=== PATIENT | male | born 1950 | race Caucasian/White ===

== ENCOUNTER 2016-03-12 21:40 | Observation (INO) ==
[2016-03-12] MEDS ORDERED: methylPREDNISolone 125 MG/2 ML VIAL IVP ONE (21:57)
[2016-03-12] MEDS ORDERED: Ipratropium/Albuterol Neb 3 ML IH ONE (21:57)
[2016-03-12 22:17] LABS: Basophils # 0.1 K/mcL (0.0-0.2); Basophils % 0.4 %; Eosinophils # 0.1 K/mcL (0.0-0.6); Eosinophils % 0.5 %; Hematocrit 50.1 % (37.5-50.1); Hemoglobin 16.5 g/dL (12.9-16.9); Immature Granulocytes % 0.6 % (0-4); Mean Corpuscular HGB Conc 32.9 g/dL (31.6-35.5); Mean Corpuscular Hemoglobin 29.8 pg (28.0-33.3); Mean Corpuscular Volume 90.6 fL (83.0-100.0); Mean Platelet Volume 11.3 fL (9.4-12.4); Monocytes # 1.2 K/mcL (0.0-1.3); Monocytes % 6.1 %; Neutrophils # 17.2 K/mcL (1.6-8.9); Platelet Count 143 K/mcL (140-400); Red Blood Count 5.53 M/mcL (4.19-5.50); Red Cell Distribution Width 14.3 % (11.5-14.5); Segmented Neutrophils % 87.4 %
[2016-03-12 22:28] LABS: Calcium 9.3 mg/dL (8.6-10.8); Potassium 4.2 mEq/L (3.5-4.5)
--- NOTE | 2016-03-12 22:49 | Emergency Department Note ---
START Narrative - START START: I examined this patient and my medical decision-making was reviewed with the MODULAR HOME CREW MEMBER/PA/Advanced Practice Nurse/Resident Physician. I agree with the documented findings, disposition and treatment plan as described except to the extent set forth below. ED attending note: Patient seen with emergency medicine resident Dr. Vick. Please see a copy of his note for details of the H&P, evaluation, management and disposition of this patient. We independently had [id number] contact with the patient Briefly: 65-year-old male via EMS for shortness of breath and difficulty breathing with cough and sputum. Patient recently diagnosed with lung cancer has pre-existing COPD. Eyes expiratory wheezes bilaterally. Tachycardic and tachypneic. Got triple DuoNeb and IV steroids. EKG shows no acute ischemic changes. Disposition pending. 45 minutes of critical care service provided. Patient stable
--- NOTE | 2016-03-12 23:13 | Emergency Department Note ---
Disposition Clinical Impression: Pneumonia Qualifiers: Pneumonia type: due to unspecified organism Laterality: unspecified laterality Lung location: unspecified part of lung Qualified Code(s): J18.9 - Pneumonia, unspecified organism Disposition: Admitted As Inpatient Condition: Good Referrals: Maxine Delatorre CNP [Primary Care Provider] - Forms: ED Satisfaction Letter SOB HPI - General Chief Complaint: ED Shortness of Breath/Dyspnea Stated Complaint: ANUP Source: patient Limitations: no limitations Nursing Notes Reviewed: Yes Vital Signs Reviewed: Yes - History of Present Illness Patient has a history of COPD and intermittent oxygen use at home. Lung cancer that had initially resolved with chemoradiation that is now recurred and is can undergo treatments next week. Here for shortness of breath for the last 2 days worsening despite at-home nebulizers and COPD treatments. Patient has not been using his oxygen as he has with stove at home. Patient has not been able to get out of his bed to do any activities due to decreased exertional capacity. - Related Data Home Medications Medication Instructions Recorded Confirmed Alprazolam [Xanax] 1 tab PO HS PRN 10/01/14 03/09/16 Escitalopram Oxalate [Lexapro] 10 mg PO DAILY 10/01/14 03/09/16 Furosemide [Lasix] 40 mg PO DAILY 10/01/14 03/09/16 Gabapentin [Neurontin] 800 mg PO TID 10/01/14 03/09/16 Metoprolol Succinate [Toprol Xl] 25 mg PO DAILY 10/01/14 03/09/16 Spironolactone 50 mg PO DAILY 10/05/14 03/09/16 Albuterol Sulfate [Proair Hfa] 1 puff IH DAILY PRN 05/11/15 03/09/16 Fluticasone/Vilanterol [Breo 1 each IH DAILY 11/02/15 03/09/16 Ellipta 100-25 Mcg INH] Indomethacin 75 mg PO DAILY PRN 11/02/15 03/09/16 Duloxetine [Cymbalta] 30 mg PO DAILY 01/31/16 03/09/16 Previous Rx's Medication Instructions Recorded Allopurinol [Zyloprim 300 MG] 300 mg PO DAILY #90 tablet 04/12/15 Dexamethasone [Decadron] 4 mg PO AD #60 tab 03/09/16 Hydrocodone/Acetaminophen [[place] 1 tab PO Q4H PRN #150 tablet 03/09/16 5-325 Tablet] LORazepam [Ativan] 1 mg PO Q6H PRN #90 tablet 03/09/16 Lidocaine/Prilocaine CREAM [[place]ml[place]] 5 gm TP AD #1 tube 03/09/16 Loratadine [Claritin] 10 mg PO AD #30 capsule 03/09/16 Magic Mouthwash [Magic Mouthwash 10 ml PO QID PRN #240 ml 03/09/16 BLM] Morphine Sulfate 15 - 30 mg PO Q4H PRN #120 tab 03/09/16 Omeprazole [PriLOSEC] 20 mg PO DAILY #90 cap 03/09/16 Ondansetron [Zofran] 8 mg PO Q8HR #90 tablet 03/09/16 Prochlorperazine Maleate 10 mg PO Q6HR #90 tablet 03/09/16 [Compazine] Allergies Allergy/AdvReac Type Severity Reaction Status Date / Time No Known Allergies Allergy Verified 03/12/16 21:47 Constitutional: Reports: fever, chills, weakness Eyes: Denies: eye pain ENT ED: Denies: ear pain Cardiovascular: Denies: chest pain, palpitations Respiratory: Reports: cough, dyspnea, wheezes Gastrointestinal: Denies: abdominal pain, nausea Genitourinary: Denies: urgency, dysuria Musculoskeletal: Denies: back pain Integumentary: Denies: rash Psychiatric: Denies: anxiety, depression Endocrine: Reports: fatigue Past Medical History - Past Medical History Medical history: Reports: aortic aneurysm, arthritis, cancer, CHF, COPD, hyperlipidemia, hypertension, malignancy, other Psychiatric history: Reports: no psych history - Social History Smoking Status: Former smoker Smokeless Tobacco Status: No Alcohol use: Reports: none Drug use: Reports: none Physical Exam - General Limitations: no limitations General appearance: alert - Head Head exam: atraumatic, normocephalic - Eye Eye exam: Present: normal appearance - ENT ENT exam: normal exam, normal oropharynx, mucous membranes dry - Neck Neck exam: Present: normal inspection, full ROM - Chest Chest inspection: Present: normal inspection - Respiratory Respiratory exam: Present: normal lung sounds bilaterally, respiratory distress , wheezes (diffuse and bilateral) - Cardiovascular Cardiovascular exam: Present: regular rate, normal rhythm - Abdominal Exam Abdominal exam: Present: soft, Non-Tender - Extremities Exam Extremities exam: Present: normal inspection, full ROM - Back Exam Back exam: Present: normal inspection, full ROM - Neurological Exam Neurological exam: Present: alert, oriented X3 Course - Reevaluation(s) Reevaluation #1: Significantly improved with DuoNeb's and oxygen. - Consultations Consultation #1: Discussed with hospitalist Dr. Miller. Patient accepted for admission. Vital Signs Temperature 97.7 F 03/12/16 21:48 Pulse Rate 125 03/12/16 21:48 Respiratory Rate 24 03/12/16 21:48 Blood Pressure 120/77 03/12/16 21:48 O2 Sat by Pulse Oximetry 88 L 03/12/16 21:48 Temperature 97.7 F 03/12/16 21:48 Pulse Rate 105 03/12/16 22:58 Respiratory Rate 20 03/12/16 22:58 Blood Pressure 109/65 03/12/16 22:58 O2 Sat by Pulse Oximetry 91 L 03/12/16 22:58 Oxygen Delivery Oxygen Delivery Nasal Cannula Shortness of Breath/Dyspnea - Medical Records Medical records reviewed: Yes I reviewed the patient's medical records. - Lab Data Lab results reviewed: Yes I reviewed the patient's lab results. Result diagrams: 03/12/16 22:00 03/12/16 22:00 Lab Results 03/12/16 03/12/16 03/12/16 Range/Units 22:00 22:00 22:00 WBC 19.7 H D (4.3-11.1) K/mcL RBC 5.53 H (4.19-5.50) M/mcL Hgb 16.5 (12.9-16.9) g/dL Hct 50.1 (37.5-50.1) % MCV 90.6 (83.0-100.0) fL MCH 29.8 (28.0-33.3) pg MCHC 32.9 (31.6-35.5) g/dL RDW 14.3 (11.5-14.5) % Plt Count 143 (140-400) K/mcL MPV 11.3 (9.4-12.4) fL Immature Gran % 0.6 (0-4) % Seg Neutrophils % 87.4 % Lymphocytes % 5.0 % Monocytes % 6.1 % Eosinophils % 0.5 % Basophils % 0.4 % Neutrophils # 17.2 H (1.6-8.9) K/mcL Lymphocytes # 1.0 (0.6-4.6) K/mcL Monocytes # 1.2 (0.0-1.3) K/mcL Eosinophils # 0.1 (0.0-0.6) K/mcL Basophils # 0.1 (0.0-0.2) K/mcL Sodium 139 (136-145) mEq/L Potassium 4.2 (3.5-4.5) mEq/L Chloride 101 (98-109) mEq/L Carbon Dioxide 25 (19-29) mEq/L BUN 20 (8-26) mg/dL Creatinine 1.67 H (0.72-1.25) mg/dL Est GFR ( Amer) 51 L (> 60) Est GFR (Non-Af Amer) 42 L (> 60) BUN/Creatinine Ratio 12 (6-26) Glucose 164 H (70-99) mg/dL Calculated Osmolality 294 (280-300) Calcium 9.3 (8.6-10.8) mg/dL Troponin I 0.01 (0-0.03) ng/mL B-Natriuretic Peptide (0-100) pg/mL 03/12/16 Range/Units 22:00 WBC (4.3-11.1) K/mcL RBC (4.19-5.50) M/mcL Hgb (12.9-16.9) g/dL Hct (37.5-50.1) % MCV (83.0-100.0) fL MCH (28.0-33.3) pg MCHC (31.6-35.5) g/dL RDW (11.5-14.5) % Plt Count (140-400) K/mcL MPV (9.4-12.4) fL Immature Gran % (0-4) % Seg Neutrophils % % Lymphocytes % % Monocytes % % Eosinophils % % Basophils % % Neutrophils # (1.6-8.9) K/mcL Lymphocytes # (0.6-4.6) K/mcL Monocytes # (0.0-1.3) K/mcL Eosinophils # (0.0-0.6) K/mcL Basophils # (0.0-0.2) K/mcL Sodium (136-145) mEq/L Potassium (3.5-4.5) mEq/L Chloride (98-109) mEq/L Carbon Dioxide (19-29) mEq/L BUN (8-26) mg/dL Creatinine (0.72-1.25) mg/dL Est GFR ( Amer) (> 60) Est GFR (Non-Af Amer) (> 60) BUN/Creatinine Ratio (6-26) Glucose (70-99) mg/dL Calculated Osmolality (280-300) Calcium (8.6-10.8) mg/dL Troponin I (0-0.03) ng/mL B-Natriuretic Peptide 86 (0-100) pg/mL - Radiology Data Radiology results reviewed: Yes I reviewed the patient's radiology results. - EKG Data EKG attestation: Yes I reviewed and interpreted this EKG. EKG results narrative: EKG shows sinus tachycardia with ventricular rate of 122. UT interval 174. QRS 105. QTC 383. Patient has no ST elevations or depressions. Nonspecific ST -T wave changes. Unchanged from previous of 07/01/14
[2016-03-12] MEDS ORDERED: 0.9 % Sodium Chloride 500 ML IV ONE (23:14)
[2016-03-12] MEDS ORDERED: Levofloxacin 750 MG/150 ML 750 MG/150 ML BAG IVPB SCH (23:45)
[2016-03-13] MEDS ORDERED: Vancomycin 1,000 MG in D5% in Water 250 ML IVPB SCH (00:42)
[2016-03-13] MEDS ORDERED: Ondansetron 4 MG/2 ML VIAL IVP PRN (00:43)
[2016-03-13] MEDS ORDERED: Naloxone 0.4 MG/ML INJ IVP PRN (00:43)
[2016-03-13] MEDS ORDERED: 0.9 % Sodium Chloride 1,000 ML IVC SCH (00:45)
[2016-03-13] MEDS ORDERED: Ipratropium/Albuterol Neb 3 ML IH PRN (00:46)
[2016-03-13] MEDS ORDERED: Indomethacin 25 MG CAPSULE PO PRN (02:19)
[2016-03-13] MEDS ORDERED: ALPRAZolam 0.5 MG TABLET PO PRN (02:19)
--- NOTE | 2016-03-13 02:19 | Internal Med History&Physical ---
Date of Encounter: 03/13/16 Time of Encounter: 01:20 Assessment and Plan (1) Right lower lobe pneumonia Current visit: Yes Status: Acute -CXR consistent with RLL infiltrates -Will start empiric abx and given immunocompromised state with the patient being on chemo, will treat as HCAP -Pharmacy to dose vancomycin, closely monitor vanco trough -follow up blood cultures -O2 supplementation as needed Qualifiers: Pneumonia type: due to unspecified organism Qualified Code(s): J18.9 - Pneumonia, unspecified organism (2) COPD (chronic obstructive pulmonary disease) Current visit: Yes Status: Chronic -Not in acute exacerbation -Patient received one dose of Methylprednisolone 125 mg IV in the ER -Will monitor without systemic steroids -continue bronchodilators -continue O2 supplementation as needed Qualifiers: COPD type: unspecified COPD Qualified Code(s): J44.9 - Chronic obstructive pulmonary disease, unspecified (3) Hyperglycemia Current visit: Yes Status: Acute -No history of DM -Will obtain A1C and closely monitor blood glucose (4) Hypertension Current visit: Yes Status: Acute BP within acceptable range continue home medications Qualifiers: Hypertension type: essential hypertension Qualified Code(s): I10 - Essential (primary) hypertension (5) CHF (congestive heart failure) Current visit: Yes Status: Chronic -Not in acute exacerbation -Continue home medications Qualifiers: Congestive heart failure type: unspecified congestive heart failure type Congestive heart failure chronicity: chronic Qualified Code(s): I50.9 - Heart failure, unspecified (6) Adenocarcinoma of lung Current visit: Yes Status: Chronic -continue chemotherapy as per primary oncologist after discharge -continue pain control Qualifiers: Laterality: right Qualified Code(s): C34.91 - Malignant neoplasm of unspecified part of right bronchus or lung (7) DVT prophylaxis Current visit: Yes Status: Acute -Lovenox SQ (8) Morbid obesity with BMI of 40.0-44.9, adult Current visit: Yes Status: Chronic (9) CKD (chronic kidney disease) Current visit: Yes Status: Acute -Kidney function appears to be at baseline as per prior lab values -continue to monitor Qualifiers: Chronic kidney disease stage: stage 3 (moderate) Qualified Code(s): N18.3 - Chronic kidney disease, stage 3 (moderate) Internal Medicine - H&P: HPI Chief complaint: worsening shortness of breath Admitted From: Home Plans for Post Hospital Care: Home History of present illness: Mr. Ricardo is a 65 year old male with PMH of right lung cancer, COPD on home oxygen, hypertension, hyperlipidemia, CHF, colostomy secondary to perforated bowel due to diverticulitis who presents to the ER for evaluation of worsening shortness of breath, cough, fever x 3 days. Patient states he was initially diagnosed with RUL lung cancer two years ago and underwent chemo/radiation and RUL lobectomy. He had been in remission until recently when he was diagnosed with Right lung ca. Patient reports of having chronic cough but states for the last few days he has had worsening shortness of breath with fevers and today his breathing did not improve with his nebulizer treatments due to which he came to the ER. He reports of having home oxygen which he uses intermittently. At this time he is sitting in bed and reports of feeling better. Denies any headache, sob, chest pain, abd pain, n/v, fever, or chills at this time. He reports of starting systemic palliative chemotherapy with Dr. Kahn. Social Hx: Former smoker (quit 10 years ago) Past Med Surg Social Fam HX - Past Medical History Medical history: aortic aneurysm, arthritis, cancer, CHF, COPD, hyperlipidemia, hypertension, malignancy, other Psychiatric history: no psych history - Social History Smoking Status: Former smoker Smokeless Tobacco Status: No Alcohol use: none Drug use: none - Family History Father Adopted: No Family Member Ethnicity: Non- Living Status: Hx Family Cardiac Disorders: Yes (CHF) Hx Family Respiratory Disorders: Yes (COPD) Hx Family Cancer: No Hx Family GI Disorders: No Hx Family Endocrine Disorder: Yes (DM) Hx Family Neuromuscular Disorders: No Hx Family Neurologic Disorders: No Hx Family HEENT Disorders: No Hx Family Autoimmune Disorders: No Internal Medicine - H&P: Meds Alprazolam [Xanax] 1 tab PO HS PRN 10/01/14 [History] Escitalopram Oxalate [Lexapro] 10 mg PO DAILY 10/01/14 [History] Furosemide [Lasix] 40 mg PO DAILY 10/01/14 [History] Gabapentin [Neurontin] 800 mg PO TID 10/01/14 [History] Metoprolol Succinate [Toprol Xl] 25 mg PO DAILY 10/01/14 [History] Spironolactone 50 mg PO DAILY 10/05/14 [History] Albuterol Sulfate [Proair Hfa] 1 puff IH DAILY PRN 05/11/15 [History] Fluticasone/Vilanterol [Breo Ellipta 100-25 Mcg INH] 1 each IH DAILY 11/02/15 [ History] Indomethacin 75 mg PO DAILY PRN 11/02/15 [History] Duloxetine [Cymbalta] 30 mg PO DAILY 01/31/16 [History] Hydrocodone/Acetaminophen [[place] 5-325 Tablet] 1 tab PO Q4H PRN #150 tablet 02/11 [Rx] Morphine Sulfate 15 - 30 mg PO Q4H PRN #120 tab 03/09/16 [Rx] Allergies No Known Allergies Allergy (Verified 03/12/16 21:47) All Systems PM: A 10-system review of systems was performed and is negative for pertinent findings except as documented above in the HPI. - Constitutional Constitutional: as per HPI - Constitutional Vitals: Temp Pulse Resp BP Pulse Ox 97.4 F L 98 20 106/74 93 L 03/13/16 01:20 03/13/16 01:20 03/13/16 01:20 03/13/16 01:20 03/13/16 01:20 General appearance: Present: cooperative, A&O X 3, morbidly obese, pleasant, no acute distress, answers questions appropriately - Head Head exam: Present: atraumatic, normocephalic - Eye Eye exam: Present: normal appearance, conjuntiva pink, sclera anicteric - Respiratory Respiratory exam: Absent: respiratory distress, wheezes (coarse breath sounds on bilateral lower bases Right worst than left) - Cardiovascular Cardiovascular exam: Present: RRR, +S1, +S2 - GI/Abdominal GI/Abdominal exam: Present: normal bowel sounds, soft. Absent: tenderness (LLQ Colostomy in place) - Extremities Exam Extremities exam: Present: warm, radial pulses palpable and symetrical. Absent : calf tenderness, pedal edema, tenderness - Neurological Exam Neurological exam: Present: alert, oriented X3, no focal deficits - Psychiatric Psychiatric exam: Present: normal affect, normal mood Internal Med - H&P Results - Labs CBC & Chem 7: 03/12/16 22:00 03/12/16 22:00
[2016-03-13] MEDS: Vancomycin 2,000 MG in D5% in Water 500 ML IVPB SCH ×2 (02:28→15:56)
[2016-03-13] MEDS: Ipratropium/Albuterol Neb 3 ML IH SCH ×6 (04:08→23:50)
[2016-03-13 05:07] LABS: Magnesium 1.8 mg/dL (1.6-2.6); Phosphorous 2.4 mg/dL (2.3-4.7); Potassium 4.2 mEq/L (3.5-4.5)
[2016-03-13] MEDS: Piperacillin/Tazobactam 3.375 GM in D5% in Water (Mini-Bag+) 100 ML IVPB SCH ×2 (05:26→15:56)
[2016-03-13] MEDS: *HR* Enoxaparin 40 MG/0.4 ML SYRINGE SQ SCH (05:27)
[2016-03-13 05:29] LABS: Basophils % 0.2 %; Eosinophils % 0.1 %; Hematocrit 47.8 % (37.5-50.1); Hemoglobin 15.7 g/dL (12.9-16.9); Immature Granulocytes % 0.7 % (0-4); Lymphocytes # 0.6 K/mcL (0.6-4.6); Lymphocytes % 3.3 %; Mean Corpuscular HGB Conc 32.8 g/dL (31.6-35.5); Mean Corpuscular Hemoglobin 30.4 pg (28.0-33.3); Mean Corpuscular Volume 92.5 fL (83.0-100.0); Mean Platelet Volume 11.4 fL (9.4-12.4); Monocytes # 0.5 K/mcL (0.0-1.3); Monocytes % 2.7 %; Neutrophils # 16.9 K/mcL (1.6-8.9); Platelet Count 120 K/mcL (140-400); Red Blood Count 5.17 M/mcL (4.19-5.50); Red Cell Distribution Width 14.3 % (11.5-14.5)
[2016-03-13 05:39] LABS: Hemoglobin A1C 5.4 %
[2016-03-13] MEDS: Furosemide 40 MG TABLET PO SCH (09:35)
[2016-03-13] MEDS: Metoprolol XL (24 HR) Succ 25 MG TAB.ER.24H PO SCH (09:35)
[2016-03-13] MEDS: Gabapentin 400 MG CAPSULE PO SCH ×3 (09:36→21:34)
--- NOTE | 2016-03-13 13:23 | Electrocardiograph Report ---
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
--- NOTE | 2016-03-13 13:27 | Event Note ---
Date of Encounter: 03/13/16 Time of Encounter: 10:30 Patient seen and examined. On examination, patient is sitting upright in bed. Patient alert and oriented 3 and states he is feeling much better. He continues to complain of shortness of breath intermittently. He states that his cough is now productive. He denies further concerns and is endorsing a normal appetite. Chest x-ray consistent with right lower lobe pneumonia. We will continue vancomycin and Zosyn. Leukocytosis slowly trending down. Patient states he is on 2 L per nasal cannula as needed at home, currently fluctuating between 2 and 3 L while inpatient. Patient stating he has not had chemotherapy in 2 years and states that he had a PET scan 2 weeks ago which revealed 3 positive spots and he states that he was supposed to see Dr. Bailey this week to reinitiate chemotherapy. On examination, breath sounds decreased throughout with coarse wheezing noted. Possible discharge as early as tomorrow pending clinical outcomes as the patient is asking to go home today but clinically not able to do so. ITS Impressions Chest X-Ray 03/12/16 21:58 IMPRESSION: 1. Worsening right lower lobe airspace disease concerning for developing pneumonia. D/ / Nitin Lozano MD / Nitin Lozano MD Interpreting Provider: Nitin Lozano MD
[2016-03-13] MEDS: *HR* HYDROcodone/Acet 5/325 mg TABLET PO PRN (15:57)
[2016-03-13] MEDS: *HR* Morphine Immed Rel 30 MG TABLET PO PRN (15:57)
[2016-03-14] MEDS: Piperacillin/Tazobactam 3.375 GM in D5% in Water (Mini-Bag+) 100 ML IVPB SCH ×2 (01:33→09:40)
[2016-03-14] MEDS ORDERED: Vancomycin 1,500 MG in D5% in Water 250 ML IVPB SCH ×2 (02:00→17:00)
[2016-03-14] MEDS: Ipratropium/Albuterol Neb 3 ML IH SCH ×4 (03:51→16:35)
[2016-03-14 04:46] LABS: Basophils % 0.1 %; Hematocrit 44.8 % (37.5-50.1); Hemoglobin 14.8 g/dL (12.9-16.9); Immature Granulocytes % 0.9 % (0-4); Lymphocytes # 0.8 K/mcL (0.6-4.6); Lymphocytes % 4.2 %; Mean Corpuscular Volume 90.7 fL (83.0-100.0); Mean Platelet Volume 11.2 fL (9.4-12.4); Monocytes # 0.9 K/mcL (0.0-1.3); Monocytes % 5.1 %; Neutrophils # 16.6 K/mcL (1.6-8.9); Platelet Count 144 K/mcL (140-400); Red Blood Count 4.94 M/mcL (4.19-5.50); Red Cell Distribution Width 14.2 % (11.5-14.5); Segmented Neutrophils % 89.7 %
[2016-03-14] MEDS: *HR* Enoxaparin 40 MG/0.4 ML SYRINGE SQ SCH (05:01)
[2016-03-14 05:10] LABS: BUN/Creatinine Ratio 20 (6-26); Blood Urea Nitrogen 27 mg/dL (8-26); Calcium 8.9 mg/dL (8.6-10.8); Carbon Dioxide 24 mEq/L (19-29); Chloride 104 mEq/L (98-109); Glucose 167 mg/dL (70-99); Osmolality,Calculated 295 (280-300); Potassium 4.3 mEq/L (3.5-4.5); Sodium 138 mEq/L (136-145); eGFR For African Americans > 60 (> 60); eGFR For Non-African Americans 52 (> 60)
[2016-03-14] MEDS: Gabapentin 400 MG CAPSULE PO SCH ×2 (09:41→15:17)
[2016-03-14] MEDS: Metoprolol XL (24 HR) Succ 25 MG TAB.ER.24H PO SCH (09:41)
[2016-03-14] MEDS: Furosemide 40 MG TABLET PO SCH (09:41)
[2016-03-14 11:20] VITALS: BP 115/71
[2016-03-14] MEDS: *HR* Morphine Immed Rel 30 MG TABLET PO PRN (13:24)
[2016-03-14] MEDS: *HR* HYDROcodone/Acet 5/325 mg TABLET PO PRN (13:24)
[2016-03-14] MEDS ORDERED: FLU VACC QS2016-17 36MOS UP/PF 0.5 ML SYRINGE IM ONE (15:14)
--- NOTE | 2016-03-14 15:15 | Discharge Summary ---
Date of Encounter: 03/14/16 Time of Encounter: 14:45 - Discharge Diagnosis (1) CKD (chronic kidney disease) Priority: Secondary Status: Chronic Comments: Stable and consistent with his baseline, follow-up outpatient. Qualifiers: Chronic kidney disease stage: stage 3 (moderate) Qualified Code(s): N18.3 - Chronic kidney disease, stage 3 (moderate) (2) COPD (chronic obstructive pulmonary disease) Priority: Secondary Status: Chronic Comments: No acute exacerbation. Patient denies shortness of breath above his normal throughout this admission. Follow-up outpatient. (3) DVT prophylaxis Priority: Primary Status: Acute Comments: Subcutaneous Lovenox while admitted (4) Hyperglycemia Priority: Primary Status: Acute Comments: No official diagnosis of diabetes. A1c 5.4%. Patient stating he would like to see his primary care provider regarding dietary and nutrition advice to prevent onset of diabetes. (5) Hypertension Priority: Secondary Status: Chronic Comments: Controlled. Recommend continued follow up outpatient. Qualifiers: Hypertension type: essential hypertension Qualified Code(s): I10 - Essential (primary) hypertension (6) Right lower lobe pneumonia Priority: Primary Status: Acute Comments: Imaging concerning for possible right lower lobe pneumonia. Examined chest CT with loader engineer Dr. Tapia and at this time his prior CT from June was compared and there were not any acute changes suggestive of an infection. Will send home with 7 days' worth of Augmentin and have him follow up outpatient with oncology. Qualifiers: Pneumonia type: due to unspecified organism Qualified Code(s): J18.9 - Pneumonia, unspecified organism (7) Adenocarcinoma of lung Priority: Secondary Status: Chronic Comments: Status post right upper lobectomy, chemotherapy, and radiation 2 years ago. Patient had a PET scan last week that revealed recurrence of his cancer. He will follow up outpatient with oncology. He states he is due to start chemotherapy again next week. Qualifiers: Laterality: right Qualified Code(s): C34.91 - Malignant neoplasm of unspecified part of right bronchus or lung (8) CHF (congestive heart failure) Priority: Secondary Status: Chronic Comments: Chronic diastolic heart failure. Euvolemic on examination throughout this admission. Recommend continued follow up outpatient and fluid and sodium are strict diet. Qualifiers: Congestive heart failure type: unspecified congestive heart failure type Congestive heart failure chronicity: chronic Qualified Code(s): I50.9 - Heart failure, unspecified (9) Morbid obesity with BMI of 40.0-44.9, adult Priority: Secondary Status: Chronic (10) Chronic respiratory failure Priority: Secondary Status: Chronic Comments: Patient stating he uses 2 L per nasal cannula as needed at home. On day of discharge, he was tolerating room air well, no change to his oxygen requirement. He also states he has tested positive for sleep apnea but lost his insurance and lost his CPAP machine, recommend follow-up outpatient for another CPAP machine. Qualifiers: Respiratory failure complication: unspecified whether with hypoxia or hypercapnia Qualified Code(s): J96.10 - Chronic respiratory failure, unspecified whether with hypoxia or hypercapnia (11) AQUILES (obstructive sleep apnea) Priority: Secondary Status: Chronic - Discharge Medications Prescriptions: Amoxicillin/Clavulanate [Augmentin] 875 mg PO BIDWM #14 tablet Guaifenesin [Guaifenesin ER] 1,200 mg PO BID #14 tab.er.12h Home Medications: Alprazolam [Xanax] 1 tab PO HS PRN 10/01/14 [History] Escitalopram Oxalate [Lexapro] 10 mg PO DAILY 10/01/14 [History] Furosemide [Lasix] 40 mg PO DAILY 10/01/14 [History] Gabapentin [Neurontin] 800 mg PO TID 10/01/14 [History] Metoprolol Succinate [Toprol Xl] 25 mg PO DAILY 10/01/14 [History] Spironolactone 50 mg PO DAILY 10/05/14 [History] Albuterol Sulfate [Proair Hfa] 1 puff IH DAILY PRN 05/11/15 [History] Fluticasone/Vilanterol [Breo Ellipta 100-25 Mcg INH] 1 puff IH DAILY 11/02/15 [ History] Indomethacin 75 mg PO DAILY PRN 11/02/15 [History] Duloxetine [Cymbalta] 30 mg PO DAILY 01/31/16 [History] Hydrocodone/Acetaminophen [[place] 5-325 Tablet] 1 tab PO Q4H PRN #150 tablet 02/11 [Rx] Morphine Sulfate 15 - 30 mg PO Q4H PRN #120 tab 03/09/16 [Rx] Amoxicillin/Clavulanate [Augmentin] 875 mg PO BIDWM #14 tablet 03/14/16 [Rx] Guaifenesin [Guaifenesin ER] 1,200 mg PO BID #14 tab.er.12h 03/14/16 [Rx] Allergies/Adverse Reactions: Allergies No Known Allergies Allergy (Verified 03/12/16 21:47) Procedures/tests Complete & Pending: Procedures Performed prior 72 hours Category Date Time Status CT chest w con [CT] Routine Cat Scan 03/14/16 09:00 Completed Date of admission: 03/12/16 23:56 Primary care physician: Maxine Delatorre CNP Consults: 03/14/16 14:38 Consult to Pulmonology [CONS] Routine Consulting Provider: [facility] Reason for Consult: hx lung CA 2 years ago sp chemo and RULectomy. PET scan last week revealed lung CA back- please eval and advise. Thora for R pleural effusion? Time Notified: 14:39 Call Completed: Yes Discharging clinician: Alexia Aguirre Anticipated date of discharge: 03/14/16 - Patient Status Disposition: Home, Self-Care Condition: Good Functional capacity at discharge: independent ambulation Overall status at discharge: patient is back to baseline - Discharge Instructions Follow Up With: Maxine Delatorre CNP [Primary Care Provider] - 03/20/16 1:25 pm Higinio King MD [Partnered Physician] - Forms: ED Satisfaction Letter Additional Instructions: Follow-up with primary care provider within one week, follow-up with oncologist as scheduled - Diet and Activity Activity: increase activity as tolerated Diet: low fat, low cholesterol, low salt diet Hospital course: Mr. Ricardo is an extremely pleasant 65 year old male with past medical history of lung cancer status post right upper lobectomy/chemotherapy/radiation 2 years ago , COPD on 2 L per nasal cannula as needed at home, hypertension, hyperlipidemia , diastolic heart failure, colostomy secondary to perforated bowel due to diverticulitis, morbid obesity. Patient presented to the emergency department chief complaint shortness of breath, cough, and subjective fever 3 days. Patient stating he was seen one week prior to presentation where a repeat PET scan revealed that his lung cancer had came back. Chest x-ray in the emergency department concerning for right lower lobe pneumonia. The patient was admitted to the hospitalist service for further evaluation and management. While admitted, the patient was treated with vancomycin and Zosyn. Pulmonology was brought on board and a chest CT was obtained. The results were reviewed with loader engineer Dr. Tapia and compared to his prior CAT scan from June. There were no acute processes that were suggestive of acute infection noted. Findings more consistent with recurrence of his cancer. However given his subjective fever and leukocytosis, he was sent home on 7 days worth of Augmentin. He is to follow-up next week with oncology to reinitiate chemotherapy. Throughout this admission, patient denied shortness of breath above his norm. He also denied pain. He initially required 2 L per nasal cannula continuously however on day of discharge, he was able to tolerate room air so no change to his home oxygen was implemented. Of note, patient has been diagnosed with sleep apnea but did not have insurance until recently so he is going to need another CPAP machine in the outpatient setting. He also states he was to follow up with his primary care provider regarding prevention of diabetes as he has been hyperglycemic on occasions without a formal diagnosis. A1c 5.4% during this visit. He was discharged home in stable condition with close outpatient follow-up with his primary care provider and oncologist recommended. ITS Impressions Chest X-Ray 03/12/16 21:58 IMPRESSION: 1. Worsening right lower lobe airspace disease concerning for developing pneumonia. D/ / Nitin Lozano MD / Nitin Lozano MD Interpreting Provider: Nitin Lozano MD Chest CT 03/14/16 09:00 IMPRESSION: 1. Interval development of reticulonodular opacities within the right lower lobe which could relate to lymphangitic carcinomatosis or atypical infection/inflammation. 2. Multiple bilateral pulmonary nodules have not significantly changed from recent PET-CT and are suspicious for metastatic disease. Please correlate with recent biopsy results. 3. Small to moderate right pleural effusion has slightly increased. 4. Ascending thoracic aortic aneurysm measuring 5.3 x 5.0 cm, unchanged. D/ / Jaylen Martinez MD / Jaylen Martinez MD Interpreting Provider: Jaylen Martinez MD - Time Spent with Patient Total time spent providing and/or coordinating discharge services: - Constitutional Vitals: Temp Pulse Resp BP Pulse Ox 98.4 F 93 17 115/71 94 L 03/14/16 11:19 03/14/16 11:19 03/14/16 11:44 03/14/16 11:19 03/14/16 11:44 General appearance: Present: cooperative, A&O X 3, morbidly obese, pleasant, no acute distress, answers questions appropriately - Head Head exam: Present: atraumatic, normocephalic - Eye Eye exam: Present: PERRL, conjuntiva pink, sclera anicteric Pupils: Present: PERRL - Neck Neck exam general surgery: Present: supple, trachea midline. Absent: lymphadenopathy - Respiratory Respiratory exam: Present: decreased breath sounds. Absent: accessory muscle use, rales, respiratory distress, rhonchi, wheezes - Cardiovascular Cardiovascular exam: Present: RRR, +S1, +S2. Absent: diastolic murmur, gallop, rubs, systolic murmur - GI/Abdominal GI/Abdominal exam: Present: normal bowel sounds, soft, no peritoneal signs. Absent: distended, tenderness - Extremities Exam Extremities exam: Present: warm, radial pulses palpable and symetrical. Absent : calf tenderness, cyanotic, pedal edema - Neurological Exam Neurological exam: Present: alert, CN II-XII intact, normal gait, oriented X3, no focal deficits, strengths equal and symetr throughout. Absent: pronater drift, facial droop, speech deficit - Skin Skin exam: Present: dry, intact, normal color, warm
[2016-03-14] MEDS ORDERED: Aminoglycoside Consult 1 EACH MC ONE (16:43)
== END 2016-03-14 16:44 | disposition home or self-care (01) ==
LOC: EMEROO 21:40 → 3BNU 21:40
PROVIDERS: ADMIT Internal Medicine; ATTEND Nurse Practitioner Family

== ENCOUNTER 2016-05-17 19:41 | Inpatient (IN) ==
[2016-05-17] MEDS ORDERED: Piperacillin/Tazobactam 3.375 GM in D5% in Water (Mini-Bag+) 100 ML IVPB ONE (19:57)
[2016-05-17] MEDS ORDERED: Vancomycin 1,000 MG in D5% in Water 250 ML IVPB ONE (19:57)
[2016-05-17] MEDS ORDERED: Ondansetron 4 MG/2 ML VIAL IVP ONE (20:01)
[2016-05-17] MEDS ORDERED: 0.9 % Sodium Chloride 1,000 ML ONE (20:03)
[2016-05-17] MEDS ORDERED: Ipratropium/Albuterol Neb 3 ML IH ONE (20:03)
[2016-05-17] MEDS ORDERED: Dexamethasone 4 MG/ML VIAL IVP ONE (20:03)
[2016-05-17] MEDS ORDERED: Lidocaine -MPF 1% 2 ML VIAL ONE (20:06)
[2016-05-17] MEDS: 0.9 % Sodium Chloride 1,000 ML IVC SCH ×3 (21:10→23:53)
--- NOTE | 2016-05-17 21:22 | Emergency Department Note ---
Disposition Clinical Impression: Tachycardia CHF (congestive heart failure) Qualifiers: Congestive heart failure type: unspecified congestive heart failure type Congestive heart failure chronicity: chronic Qualified Code(s): I50.9 - Heart failure, unspecified Adenocarcinoma of lung Qualifiers: Laterality: right Qualified Code(s): C34.91 - Malignant neoplasm of unspecified part of right bronchus or lung Fever Qualifiers: Fever type: unspecified Qualified Code(s): R50.9 - Fever, unspecified Pneumonia Qualifiers: Pneumonia type: due to unspecified organism Laterality: right Lung location: lower lobe of lung Qualified Code(s): J18.1 - Lobar pneumonia, unspecified organism Disposition: Admitted As Inpatient Condition: Fair Time of Disposition: 00:22 General Adult HPI - General Chief complaint: ED Nausea/Vomiting/Diarrhea Stated complaint: "Very Sick" Time Seen by Provider: 05/17/16 19:50 Source: patient, family Mode of arrival: wheelchair Limitations: no limitations Nursing Notes Reviewed: Yes Vital Signs Reviewed: Yes - History of Present Illness HPI Narrative: Patient presents to emergency room with complaint of fever or generalized malaise stomach discomfort nausea and vomiting. Is currently in treatment for a right sided lung cancer. He denies any other recent illnesses or medication changes. Patient has been feeling ill for several days. He has not been seen by his oncologist during this presentation. Family is concerned because of fever and inability to take in fluids and wanted to make sure that he was not getting dehydrated or being sick. No other acute symptoms or changes except for the nausea and vomiting and abdominal discomfort. Onset (ago): day(s) (3 days) Location: chest, abdomen Radiation: non-radiation Pain Severity: moderate Pain Scale: 0 Quality: aching Consistency: constant Improves with: nothing Worsens with: movement Associated symptoms: Reports: cough, diaphoresis, fever/chills, loss of appetite , malaise, nausea/vomiting Treatments Prior to Arrival: NSAID - Related Data Home Medications Medication Instructions Recorded Confirmed Alprazolam [Xanax] 1 tab PO HS PRN 10/01/14 05/17/16 Escitalopram Oxalate [Lexapro] 10 mg PO DAILY 10/01/14 05/17/16 Furosemide [Lasix] 40 mg PO DAILY 10/01/14 05/17/16 Metoprolol Succinate [Toprol Xl] 25 mg PO DAILY 10/01/14 05/17/16 Spironolactone 50 mg PO DAILY 10/05/14 05/17/16 Indomethacin 75 mg PO DAILY PRN 11/02/15 05/17/16 Previous Rx's Medication Instructions Recorded Guaifenesin [Guaifenesin ER] 1,200 mg PO BID #14 tab.er.12h 03/14/16 LORazepam [Ativan] 0.5 mg PO Q6H PRN #30 tablet 03/15/16 Lidocaine/Prilocaine CREAM [Emla] 1 gm TP ONCE PRN #1 tube 03/15/16 Magic Mouthwash 10 ml PO Q4H PRN #240 ml 03/15/16 Omeprazole [PriLOSEC] 20 mg PO DAILY #30 capsule. 03/15/16 Ondansetron [Zofran] 8 mg PO Q8HR PRN #90 tablet 03/15/16 Prochlorperazine Maleate 10 mg PO Q6HR PRN #40 tablet 03/15/16 [Compazine] Folic Acid 1 mg PO DAILY #30 tablet 03/31/16 Ondansetron [Zofran ODT] 8 mg SL Q8H PRN #60 tab.rapdis 03/31/16 Albuterol Sulfate [Albuterol 2 puff IH Q4-6H PRN #1 inhaler 04/20/16 Inhaler] HYDROcodone/Acet 5/325 mg [[place] 1 tab PO Q6H PRN #90 tab 05/02/16 5-325 mg] Morphine Sulfate 15 - 30 mg PO Q4H PRN #120 tab 05/02/16 Crizotinib [Xalkori] 250 mg PO BID #60 capsule 05/04/16 Fluticasone/Vilanterol [Breo 1 puff IH DAILY #1 blst.w.dev 05/04/16 Ellipta 100-25 Mcg INH] Allergies Allergy/AdvReac Type Severity Reaction Status Date / Time No Known Allergies Allergy Verified 05/11/16 11:03 All systems ED: reviewed and negative except as stated. Constitutional: Reports: fever, chills, weakness Cardiovascular: Reports: dyspnea on exertion, orthopnea. Denies: chest pain, palpitations, edema Respiratory: Reports: cough, dyspnea, sputum production. Denies: wheezes, hemoptysis Gastrointestinal: Reports: abdominal pain, nausea, vomiting. Denies: diarrhea Genitourinary: Denies: dysuria Musculoskeletal: Denies: back pain, neck pain Integumentary: Denies: rash Past Medical History - Past Medical History Attestation: Yes The following information was validated with the patient. Source: patient Medical history: Reports: aortic aneurysm, arthritis, cancer, CHF, COPD, hyperlipidemia, hypertension, malignancy, other Psychiatric history: Reports: no psych history - Social History Smoking Status: Former smoker Smokeless Tobacco Status: No Alcohol use: Reports: none Drug use: Reports: none Physical Exam - General Limitations: no limitations General appearance: alert - ENT ENT exam: normal exam, normal oropharynx, mucous membranes moist - Neck Neck exam: Present: normal inspection, full ROM, trachea midline. Absent: tenderness, lymphadenopathy - Chest Chest inspection: Present: normal inspection, symmetric chest wall rise. Absent : tenderness - Respiratory Respiratory exam: Present: normal lung sounds bilaterally. Absent: respiratory distress, wheezes, stridor, accessory muscle use - Cardiovascular Cardiovascular exam: Present: regular rate, normal rhythm, normal heart sounds - Abdominal Exam Abdominal exam: Present: soft, tenderness. Absent: Non-Tender, distention, guarding, rebound, rigidity, Andersen's sign (Tenderness noted diffusely in the abdomen no guarding no rigidity no peritoneal symptoms), Rovsing's sign, tenderness at McBurney's Point, mass - Extremities Exam Extremities exam: Present: normal inspection, full ROM. Absent: tenderness - Back Exam Back exam: Present: normal inspection, full ROM. Absent: tenderness - Neurological Exam Neurological exam: Present: alert, oriented X3, CN II-XII intact - Psychiatric Psychiatric exam: Present: normal affect, normal mood - Skin Skin exam: Present: warm, dry, intact, normal color Course Course Narrative: Patient seen and examined at the time of arrival. See history of present illness. 65-year-old male with known right-sided lung cancer. He is currently in chemotherapy treatment at the cancer center at this facility. He has been ill for the last 2 or 3 days at home. He has had a fever chills nausea vomiting and diarrhea. He has abdominal discomfort. Denies chest pain or shortness of breath. He complains generalized malaise fevers chills nausea vomiting and abdominal discomfort with intermittent diarrhea. Physical exam male is ill-appearing. Appears to be slightly dehydrated. He was 102.4 presentation with a heart rate of 130. Sepsis order set ordered on presentation. Vancomycin and Zosyn ordered. Stress dose steroids breathing treatments nausea medication and 2 L fluid bolus given at this time. Patient does have a significant history of CHF there is concern for fluid overload. Hydration to be provided in aliquots after the initial 2 L are given. Tylenol ordered for his fever. Blood cultures chest x-ray as well as CT angiogram and CT of the abdomen ordered for definitive evaluation of his pulmonary status and infectious etiology. (From also ordered. Patient is stable at this point but is concerning for possible decompensation. CODE STATUS is stable at this time. Patient will need admission once workup is completed. Port reaccessed in the right chest wall. We will continue to monitor his workup is completed. Lungs are clear heart is regular but tachycardic abdomen soft no guarding no rigidity but he does describe tenderness to palpation. He has no acute signs of pitting edema in the lower extremities he has no specific signs of acute fluid overload. Disposition pending workup and treatment course - Reevaluation(s) Reevaluation #1: Patient had IV blow down getting a CT angiogram of his chest and his abdomen. Plain films by CT evaluation order the chest and abdomen this time. Contrast to be held until IV access is obtained includes are provided. Patient is stable we will continue to monitor Time: 22:23 Reevaluation #2: Patient was discussed with the hospitalist Dr. clark. We reviewed the patient 's presentation symptoms medical history. Patient will be placed in the ICU for further evaluation and management. IV hydration provided. Symptoms are getting better according the patient. Heart rate and blood pressure stabilized. Patient is resting comfortable in the bed at this time. Admission process to be completed for what most likely is pneumonia healthcare acquired at this time. Time: 00:21 Vital Signs Temperature 102.4 F H 05/17/16 19:43 Pulse Rate 130 05/17/16 19:43 Respiratory Rate 16 05/17/16 19:43 Blood Pressure 83/54 05/17/16 19:43 O2 Sat by Pulse Oximetry 86 L 05/17/16 19:43 Temperature 97.9 F 05/18/16 05:13 Pulse Rate 74 05/18/16 05:07 Respiratory Rate 16 05/18/16 05:07 Blood Pressure 102/69 05/18/16 05:07 O2 Sat by Pulse Oximetry 95 05/18/16 05:07 Oxygen Delivery Oxygen Delivery Nasal Cannula Medical Decision Making - MDM Narrative Medical decision making narrative: Sepsis, fever, lung cancer - Medical Records Medical records reviewed: Yes I reviewed the patient's medical records. - Lab Data Lab results reviewed: Yes I reviewed the patient's lab results. Result diagrams: 05/18/16 02:41 05/18/16 02:41 Lab Results 05/17/16 05/17/16 05/17/16 Range/Units 21:17 21:17 21:17 WBC 5.2 (4.3-11.1) K/mcL RBC 2.72 L (4.19-5.50) M/mcL Hgb 8.2 L D (12.9-16.9) g/dL Hct 24.9 L (37.5-50.1) % MCV 91.5 (83.0-100.0) fL MCH 30.1 (28.0-33.3) pg MCHC 32.9 (31.6-35.5) g/dL RDW 17.3 H (11.5-14.5) % Plt Count 32 L D (140-400) K/mcL MPV 12.0 (9.4-12.4) fL Immature Gran % 5.0 H (0-4) % Seg Neutrophils % 48.0 % Lymphocytes % 25.2 % Monocytes % 20.8 % Eosinophils % 0.4 % Basophils % 0.6 % Neutrophils # 2.5 (1.6-8.9) K/mcL Lymphocytes # 1.3 (0.6-4.6) K/mcL Monocytes # 1.1 (0.0-1.3) K/mcL Eosinophils # 0.0 (0.0-0.6) K/mcL Basophils # 0.0 (0.0-0.2) K/mcL Nucleated RBCs/100 WBC 1.0 H (0) /100 WBC Platelet Estimate Decreased L (Normal) Immature Plt Fraction 8.1 H (1.1-6.1) % Polychromasia 1+ A (Not Present) Anisocytosis 1+ A (Not Present) PT 15.5 H (9.4-12.1) Seconds INR 1.4 APTT 27.5 (26.0-36.0) Seconds Sodium (136-145) mEq/L Potassium (3.5-4.5) mEq/L Chloride (98-109) mEq/L Carbon Dioxide (19-29) mEq/L BUN (8-26) mg/dL Creatinine (0.72-1.25) mg/dL Est GFR ( Amer) (> 60) Est GFR (Non-Af Amer) (> 60) BUN/Creatinine Ratio (6-26) Glucose (70-99) mg/dL POC Glucose (58-89) Calculated Osmolality (280-300) Lactic Acid (0.5-2.2) mmol/L Calcium (8.6-10.8) mg/dL Phosphorus (2.3-4.7) mg/dL Magnesium (1.6-2.6) mg/dL Total Bilirubin (0.2-1.2) mg/dL Direct Bilirubin (0.0-0.5) mg/dL Indirect Bilirubin (0.0-1.2) mg/dL AST (5-34) Units/L ALT (0-55) Units/L Alkaline Phosphatase (38-126) Units/L Troponin I (0-0.03) ng/mL B-Natriuretic Peptide (0-100) pg/mL Serum Total Protein (6.0-8.3) g/dL Albumin (3.5-5.0) g/dL Globulin (2.4-3.5) g/dL Albumin/Globulin Ratio (1.1-2.2) Urine Color Yellow (Yellow) Urine Clarity Clear (Clear) Urine pH 7.0 (5.0-8.0) pH Units Ur Specific [place] 1.016 (1.010-1.025) Urine Protein 30 H (Neg-Trace) mg/dL Urine Glucose (UA) Normal (Normal) mg/dL Urine Ketones Trace H (Negative) mg/dL Urine Blood Negative (Negative) Urine Nitrite Negative (Negative) Urine Bilirubin Negative (Negative) Urine Urobilinogen Normal (Normal) mg/dL Ur Leukocyte Esterase Negative (Negative) Urine Microscopic RBC 3-5 H (0-3) per hpf Urine Microscopic WBC 0-3 (0-3) per hpf Ur Squamous Epith Cells Many H (None-Few) per lpf Urine Bacteria None Seen (None-Few) per hpf Hyaline Casts None Seen (None-Few) per lpf Ur Culture Indicated? NO (NO) Blood Type Antibody Screen 05/17/16 05/17/16 05/17/16 Range/Units 21:17 21:17 21:17 WBC (4.3-11.1) K/mcL RBC (4.19-5.50) M/mcL Hgb (12.9-16.9) g/dL Hct (37.5-50.1) % MCV (83.0-100.0) fL MCH (28.0-33.3) pg MCHC (31.6-35.5) g/dL RDW (11.5-14.5) % Plt Count (140-400) K/mcL MPV (9.4-12.4) fL Immature Gran % (0-4) % Seg Neutrophils % % Lymphocytes % % Monocytes % % Eosinophils % % Basophils % % Neutrophils # (1.6-8.9) K/mcL Lymphocytes # (0.6-4.6) K/mcL Monocytes # (0.0-1.3) K/mcL Eosinophils # (0.0-0.6) K/mcL Basophils # (0.0-0.2) K/mcL Nucleated RBCs/100 WBC (0) /100 WBC Platelet Estimate (Normal) Immature Plt Fraction (1.1-6.1) % Polychromasia (Not Present) Anisocytosis (Not Present) PT (9.4-12.1) Seconds INR APTT (26.0-36.0) Seconds Sodium 136 (136-145) mEq/L Potassium 4.4 (3.5-4.5) mEq/L Chloride 100 (98-109) mEq/L Carbon Dioxide 25 (19-29) mEq/L BUN 18 (8-26) mg/dL Creatinine 1.71 H (0.72-1.25) mg/dL Est GFR ( Amer) 49 L (> 60) Est GFR (Non-Af Amer) 41 L (> 60) BUN/Creatinine Ratio 11 (6-26) Glucose 126 H (70-99) mg/dL POC Glucose (58-89) Calculated Osmolality 285 (280-300) Lactic Acid 1.0 (0.5-2.2) mmol/L Calcium 9.3 (8.6-10.8) mg/dL Phosphorus 2.4 (2.3-4.7) mg/dL Magnesium 1.3 L (1.6-2.6) mg/dL Total Bilirubin 1.7 H (0.2-1.2) mg/dL Direct Bilirubin 0.8 H (0.0-0.5) mg/dL Indirect Bilirubin 0.9 (0.0-1.2) mg/dL AST 21 (5-34) Units/L ALT 25 (0-55) Units/L Alkaline Phosphatase 90 (38-126) Units/L Troponin I 0.01 (0-0.03) ng/mL B-Natriuretic Peptide (0-100) pg/mL Serum Total Protein 6.8 (6.0-8.3) g/dL Albumin 3.1 L (3.5-5.0) g/dL Globulin 3.7 H (2.4-3.5) g/dL Albumin/Globulin Ratio 0.8 L (1.1-2.2) Urine Color (Yellow) Urine Clarity (Clear) Urine pH (5.0-8.0) pH Units Ur Specific [place] (1.010-1.025) Urine Protein (Neg-Trace) mg/dL Urine Glucose (UA) (Normal) mg/dL Urine Ketones (Negative) mg/dL Urine Blood (Negative) Urine Nitrite (Negative) Urine Bilirubin (Negative) Urine Urobilinogen (Normal) mg/dL Ur Leukocyte Esterase (Negative) Urine Microscopic RBC (0-3) per hpf Urine Microscopic WBC (0-3) per hpf Ur Squamous Epith Cells (None-Few) per lpf Urine Bacteria (None-Few) per hpf Hyaline Casts (None-Few) per lpf Ur Culture Indicated? (NO) Blood Type Antibody Screen 05/17/16 05/17/16 05/17/16 Range/Units 21:17 23:08 23:20 WBC (4.3-11.1) K/mcL RBC (4.19-5.50) M/mcL Hgb (12.9-16.9) g/dL Hct (37.5-50.1) % MCV (83.0-100.0) fL MCH (28.0-33.3) pg MCHC (31.6-35.5) g/dL RDW (11.5-14.5) % Plt Count (140-400) K/mcL MPV (9.4-12.4) fL Immature Gran % (0-4) % Seg Neutrophils % % Lymphocytes % % Monocytes % % Eosinophils % % Basophils % % Neutrophils # (1.6-8.9) K/mcL Lymphocytes # (0.6-4.6) K/mcL Monocytes # (0.0-1.3) K/mcL Eosinophils # (0.0-0.6) K/mcL Basophils # (0.0-0.2) K/mcL Nucleated RBCs/100 WBC (0) /100 WBC Platelet Estimate (Normal) Immature Plt Fraction (1.1-6.1) % Polychromasia (Not Present) Anisocytosis (Not Present) PT (9.4-12.1) Seconds INR APTT (26.0-36.0) Seconds Sodium (136-145) mEq/L Potassium (3.5-4.5) mEq/L Chloride (98-109) mEq/L Carbon Dioxide (19-29) mEq/L BUN (8-26) mg/dL Creatinine (0.72-1.25) mg/dL Est GFR ( Amer) (> 60) Est GFR (Non-Af Amer) (> 60) BUN/Creatinine Ratio (6-26) Glucose (70-99) mg/dL POC Glucose (58-89) Calculated Osmolality (280-300) Lactic Acid 0.8 (0.5-2.2) mmol/L Calcium (8.6-10.8) mg/dL Phosphorus (2.3-4.7) mg/dL Magnesium (1.6-2.6) mg/dL Total Bilirubin (0.2-1.2) mg/dL Direct Bilirubin (0.0-0.5) mg/dL Indirect Bilirubin (0.0-1.2) mg/dL AST (5-34) Units/L ALT (0-55) Units/L Alkaline Phosphatase (38-126) Units/L Troponin I (0-0.03) ng/mL B-Natriuretic Peptide 193 H (0-100) pg/mL Serum Total Protein (6.0-8.3) g/dL Albumin (3.5-5.0) g/dL Globulin (2.4-3.5) g/dL Albumin/Globulin Ratio (1.1-2.2) Urine Color (Yellow) Urine Clarity (Clear) Urine pH (5.0-8.0) pH Units Ur Specific [place] (1.010-1.025) Urine Protein (Neg-Trace) mg/dL Urine Glucose (UA) (Normal) mg/dL Urine Ketones (Negative) mg/dL Urine Blood (Negative) Urine Nitrite (Negative) Urine Bilirubin (Negative) Urine Urobilinogen (Normal) mg/dL Ur Leukocyte Esterase (Negative) Urine Microscopic RBC (0-3) per hpf Urine Microscopic WBC (0-3) per hpf Ur Squamous Epith Cells (None-Few) per lpf Urine Bacteria (None-Few) per hpf Hyaline Casts (None-Few) per lpf Ur Culture Indicated? (NO) Blood Type A POSITIVE Antibody Screen NEGATIVE 05/18/16 Range/Units 01:27 WBC (4.3-11.1) K/mcL RBC (4.19-5.50) M/mcL Hgb (12.9-16.9) g/dL Hct (37.5-50.1) % MCV (83.0-100.0) fL MCH (28.0-33.3) pg MCHC (31.6-35.5) g/dL RDW (11.5-14.5) % Plt Count (140-400) K/mcL MPV (9.4-12.4) fL Immature Gran % (0-4) % Seg Neutrophils % % Lymphocytes % % Monocytes % % Eosinophils % % Basophils % % Neutrophils # (1.6-8.9) K/mcL Lymphocytes # (0.6-4.6) K/mcL Monocytes # (0.0-1.3) K/mcL Eosinophils # (0.0-0.6) K/mcL Basophils # (0.0-0.2) K/mcL Nucleated RBCs/100 WBC (0) /100 WBC Platelet Estimate (Normal) Immature Plt Fraction (1.1-6.1) % Polychromasia (Not Present) Anisocytosis (Not Present) PT (9.4-12.1) Seconds INR APTT (26.0-36.0) Seconds Sodium (136-145) mEq/L Potassium (3.5-4.5) mEq/L Chloride (98-109) mEq/L Carbon Dioxide (19-29) mEq/L BUN (8-26) mg/dL Creatinine (0.72-1.25) mg/dL Est GFR ( Amer) (> 60) Est GFR (Non-Af Amer) (> 60) BUN/Creatinine Ratio (6-26) Glucose (70-99) mg/dL POC Glucose 183 H (58-89) Calculated Osmolality (280-300) Lactic Acid (0.5-2.2) mmol/L Calcium (8.6-10.8) mg/dL Phosphorus (2.3-4.7) mg/dL Magnesium (1.6-2.6) mg/dL Total Bilirubin (0.2-1.2) mg/dL Direct Bilirubin (0.0-0.5) mg/dL Indirect Bilirubin (0.0-1.2) mg/dL AST (5-34) Units/L ALT (0-55) Units/L Alkaline Phosphatase (38-126) Units/L Troponin I (0-0.03) ng/mL B-Natriuretic Peptide (0-100) pg/mL Serum Total Protein (6.0-8.3) g/dL Albumin (3.5-5.0) g/dL Globulin (2.4-3.5) g/dL Albumin/Globulin Ratio (1.1-2.2) Urine Color (Yellow) Urine Clarity (Clear) Urine pH (5.0-8.0) pH Units Ur Specific [place] (1.010-1.025) Urine Protein (Neg-Trace) mg/dL Urine Glucose (UA) (Normal) mg/dL Urine Ketones (Negative) mg/dL Urine Blood (Negative) Urine Nitrite (Negative) Urine Bilirubin (Negative) Urine Urobilinogen (Normal) mg/dL Ur Leukocyte Esterase (Negative) Urine Microscopic RBC (0-3) per hpf Urine Microscopic WBC (0-3) per hpf Ur Squamous Epith Cells (None-Few) per lpf Urine Bacteria (None-Few) per hpf Hyaline Casts (None-Few) per lpf Ur Culture Indicated? (NO) Blood Type Antibody Screen - Radiology Data Radiology results reviewed: Yes I reviewed the patient's radiology results. CT of the chest and abdomen is negative for acute pathology. Right chest wall is concerning for possible pneumonia in the base. Abdomen is negative for acute pathology - EKG Data EKG #1 EKG attestation: Yes I reviewed and interpreted this EKG. EKG shows normal: sinus rhythm Rate: tachycardia Rhythm: NSR [place]/QRS: normal When compared to previous EKG there are: no significant changes Interpretation: unchanged when compared to prior tracing (date) Critical Care Time Critical Care Time: Yes Total Critical Care Time: 45 Attestation: Independent of procedures and medical management Attestation Statement - Attestation Attestation: For this encounter, I have reviewed the resident, APRON WORKER, or PA documentation, treatment plan, and medical decision making; and I have had face to face time with this patient. 65-year-old male presents with concerns of nausea, vomiting, abdominal pain, shortness of breath. Patient reports symptoms have been increasing over the past few days. Patient has a history of lung cancer status post right lung resection. Patient has a fever on initial evaluation, he was hypoxic to 84% and was tachycardic. Patient is at significant risk for PE. We will obtain CT of the chest and a CT of the abdomen and pelvis with IV contrast. Patient's abdominal pain. Patient is a poor historian and is unable to give a history regarding his case and presentation. Patient on empiric antibiotics for likely pneumonia. CT of the abdomen is negative for acute surgical pathology. CT of the chest reveals likely pneumonia. Patient admitted to the ICU for further care and evaluation of his difficulty in breathing, fever and likely sepsis.
[2016-05-17 21:31] LABS: Eosinophils % 0.4 %
[2016-05-17 21:33] LABS: Basophils % 0.6 %; Hematocrit 24.9 % (37.5-50.1); Hemoglobin 8.2 g/dL (12.9-16.9); INR 1.4; Immature Platelets 8.1 % (1.1-6.1); Lymphocytes # 1.3 K/mcL (0.6-4.6); Lymphocytes % 25.2 %; Mean Corpuscular HGB Conc 32.9 g/dL (31.6-35.5); Mean Corpuscular Hemoglobin 30.1 pg (28.0-33.3); Mean Corpuscular Volume 91.5 fL (83.0-100.0); Monocytes # 1.1 K/mcL (0.0-1.3); Monocytes % 20.8 %; Neutrophils # 2.5 K/mcL (1.6-8.9); Prothrombin Time 15.5 Seconds (9.4-12.1); Red Blood Count 2.72 M/mcL (4.19-5.50); Red Cell Distribution Width 17.3 % (11.5-14.5)
[2016-05-17 21:35] LABS: Activated Partial Thrombo Time 27.5 Seconds (26.0-36.0)
[2016-05-17 21:42] LABS: Bilirubin,Urine Negative (Negative); Blood,Urine Negative (Negative); Clarity,Urine Clear (Clear); Color,Urine Yellow (Yellow); Glucose,Urine (UA) Normal (Normal); Ketones,Urine Trace mg/dL (Negative); Leukocyte Esterase,Urine Negative (Negative); Nitrite,Urine Negative (Negative); Protein,Urine 30 mg/dL (Neg-Trace); Specific Gravity,Urine 1.016 (1.010-1.025); Urobilinogen,Urine Normal (Normal)
[2016-05-17 21:43] LABS: Albumin 3.1 g/dL (3.5-5.0); Albumin/Globulin Ratio 0.8 (1.1-2.2); Bilirubin,Direct 0.8 mg/dL (0.0-0.5); Bilirubin,Indirect 0.9 mg/dL (0.0-1.2); Bilirubin,Total 1.7 mg/dL (0.2-1.2); Calcium 9.3 mg/dL (8.6-10.8); Globulin 3.7 g/dL (2.4-3.5); Magnesium 1.3 mg/dL (1.6-2.6); Phosphorous 2.4 mg/dL (2.3-4.7); Potassium 4.4 mEq/L (3.5-4.5); Total Protein 6.8 g/dL (6.0-8.3)
[2016-05-17 21:45] LABS: Bacteria,Urine None Seen per hpf (None-Few); Hyaline Casts,Urine None Seen per lpf (None-Few); Squamous Epithelial Cell,Urine Many per lpf (None-Few); WBC,Urine 0-3 per hpf (0-3)
[2016-05-17 22:57] LABS: Anisocytosis 1+ (Not Present); Platelet Estimate Decreased (Normal); Polychromasia 1+ (Not Present)
[2016-05-17 22:58] LABS: Platelet Count 32 K/mcL (140-400)
--- NOTE | 2016-05-18 01:15 | Internal Med History&Physical ---
Date of Encounter: 05/18/16 Time of Encounter: 01:13 Assessment and Plan (1) Right lower lobe pneumonia Current visit: No Status: Acute Right lower lobe pneumonia in the setting of a patient with adenocarcinoma of the lung on treatment with carboplatin, Alimta and Neulasta, additionally patient has underlying COPD. Due to above-mentioned history will treat as healthcare associated pneumonia, therefore we will continue with both vancomycin and Zosyn. Follow cultures. Patient has been febrile and slightly hypotensive since admission, however the cough improved after IV fluid. We will continue monitoring the patient closely. Monitor input and output. Patient is at high risk of complications, we need to monitor vancomycin levels accordingly. Avoid nephrotoxic agents. Qualifiers: Pneumonia type: due to unspecified organism Qualified Code(s): J18.1 - Lobar pneumonia, unspecified organism (2) Sepsis Current visit: Yes Status: Acute Febrile, tachycardic, hypotensive with evidence of pneumonia. See above. Qualifiers: Sepsis type: sepsis due to unspecified organism Qualified Code(s): A41.9 - Sepsis, unspecified organism (3) DVT prophylaxis Current visit: No Status: Acute DVT prophylaxis as per hospital protocol. (4) Thrombocytopenia Current visit: Yes Status: Acute Platelet count is 72,000, likely induced by carboplatinum. We will avoid heparin in view of thrombocytopenia. DVT prophylaxis with compressive devices. (5) Hypertension Current visit: No Status: Chronic Patient with history of hypertension, at this point we will hold antihypertensive medication in light of hypotension and concomitant infection. Qualifiers: Hypertension type: essential hypertension Qualified Code(s): I10 - Essential (primary) hypertension (6) AQUILES (obstructive sleep apnea) Current visit: No Status: Chronic Continue monitoring the patient closely. BiPAP at night. (7) Obesity Current visit: No Status: Chronic Qualifiers: Obesity type: due to excess calories Obesity severity: unspecified obesity severity Qualified Code(s): E66.09 - Other obesity due to excess calories (8) Non-small cell lung cancer Current visit: No Status: Resolved Management as per oncology. Qualifiers: Laterality: right Qualified Code(s): C34.91 - Malignant neoplasm of unspecified part of right bronchus or lung Internal Medicine - H&P: HPI Chief complaint: Fever Admitted From: Emergency Dept Plans for Post Hospital Care: Home History of present illness: Mr. Ricardo is a 65 year old male with past medical history of lung cancer, adenocarcinoma diagnosed in 2013, receiving therapy in our Cancer Center. Former Smoker, COPD, Obstructive Sleep Apnea, Hypertension. Patient Presented to Our Emergency Department Complaining of Generalized Weakness, Fever, Chills, Shortness of Breath Which Is Progressive. Above-Mentioned Symptoms Started around 5 Days Ago and Have Been Progressively Getting Worse. Upon initial Presentation to the emergency department the patient was found febrile with a temperature of 101.1, tachycardic with a heart rate of 1 26/m. Hypotensive without blood pressure 93/76, oxygen saturation 95%. Hemoglobin 8.2, platelet count 32,000. Creatinine 1.71, glucose 127. Patient did receive her cycle of carboplatin, Alimta and Neulasta [address] of the chest revealed a right lower lobe pneumonia. The patient received a dose of IV antibiotics in the emergency department (Zosyn and vancomycin) and was admitted for further management and workup. She denies chest pain, consciousness, abnormal movements , dysuria, skin rash. Past Med Surg Social Fam HX - Past Medical History Medical history: aortic aneurysm, arthritis, cancer, CHF, COPD, hyperlipidemia, hypertension, malignancy, other Psychiatric history: no psych history - Social History Smoking Status: Former smoker Smokeless Tobacco Status: No Alcohol use: none Drug use: none - Family History Mother Living Status: Hx Family Cardiac Disorders: Yes (CHF) Hx Family Endocrine Disorder: Yes (DM) Father Adopted: No Family Member Ethnicity: Non- Living Status: Hx Family Cardiac Disorders: Yes (CHF) Hx Family Respiratory Disorders: Yes (COPD) Hx Family Cancer: No Hx Family GI Disorders: No Hx Family Endocrine Disorder: Yes (DM) Hx Family Neuromuscular Disorders: No Hx Family Neurologic Disorders: No Hx Family HEENT Disorders: No Hx Family Autoimmune Disorders: No Internal Medicine - H&P: Meds Alprazolam [Xanax] 1 tab PO HS PRN 10/01/14 [History] Escitalopram Oxalate [Lexapro] 10 mg PO DAILY 10/01/14 [History] Furosemide [Lasix] 40 mg PO DAILY 10/01/14 [History] Metoprolol Succinate [Toprol Xl] 25 mg PO DAILY 10/01/14 [History] Spironolactone 50 mg PO DAILY 10/05/14 [History] Indomethacin 75 mg PO DAILY PRN 11/02/15 [History] Guaifenesin [Guaifenesin ER] 1,200 mg PO BID #14 tab.er.12h 03/14/16 [Rx] LORazepam [Ativan] 0.5 mg PO Q6H PRN #30 tablet 03/15/16 [Rx] Lidocaine/Prilocaine CREAM [Emla] 1 gm TP ONCE PRN #1 tube 03/15/16 [Rx] Magic Mouthwash 10 ml PO Q4H PRN #240 ml 03/15/16 [Rx] Omeprazole [PriLOSEC] 20 mg PO DAILY #30 capsule. 03/15/16 [Rx] Ondansetron [Zofran] 8 mg PO Q8HR PRN #90 tablet 03/15/16 [Rx] Prochlorperazine Maleate [Compazine] 10 mg PO Q6HR PRN #40 tablet 03/15/16 [Rx] Folic Acid 1 mg PO DAILY #30 tablet 03/31/16 [Rx] Ondansetron [Zofran ODT] 8 mg SL Q8H PRN #60 tab.rapdis 03/31/16 [Rx] Albuterol Sulfate [Albuterol Inhaler] 2 puff IH Q4-6H PRN #1 inhaler 04/20/16 [ Rx] HYDROcodone/Acet 5/325 mg [[place] 5-325 mg] 1 tab PO Q6H PRN #90 tab 05/02/16 [Rx ] Morphine Sulfate 15 - 30 mg PO Q4H PRN #120 tab 05/02/16 [Rx] Crizotinib [Xalkori] 250 mg PO BID #60 capsule 05/04/16 [Rx] Fluticasone/Vilanterol [Breo Ellipta 100-25 Mcg INH] 1 puff IH DAILY #1 blst.w.dev 05/04/16 [Rx] Allergies No Known Allergies Allergy (Verified 05/11/16 11:03) All Systems PM: A 10-system review of systems was performed and is negative for pertinent findings except as documented above in the HPI. - Constitutional Constitutional: as per HPI, anorexia, chills, fever(s), no night sweats - EENT Eyes: as per HPI, no change in vision, no discharge, no pain, no photophobia Ears: as per HPI, no ear discharge, no ear pain, no tinnitus Nose, mouth and throat: as per HPI, no dysphagia, no nasal discharge, no neck pain, no sore throat - Breasts Breasts: as per HPI - Cardiovascular Cardiovascular ROS IM: as per HPI, no chest pain, no diaphoresis, no dyspnea, no lightheadedness, no palpitations, no syncope - Respiratory Respiratory: as per HPI, cough, dyspnea, dyspnea on exertion, no wheezing, no excessive phlegm production - Gastrointestinal Gastrointestinal: as per HPI, no abdominal pain, no diarrhea, no hematemesis, no hematochezia, no melena, no nausea, no vomiting - Genitourinary Genitourinary ROS male: as per HPI - Musculoskeletal Musculoskeletal ROS IM: as per HPI, no numbness, no tingling - Integumentary Integumentary IM: as per HPI, no rash, no unusual bruising - Neurological Neurological ROS: as per HPI, no confusion, no convulsions, no focal weakness, no numbness, no tingling, no tremor(s) - Psychiatric Psychiatric: as per HPI - Endocrine Endocrine IM: as per HPI - Hematologic/Lymphatic Hematologic/Lymphatic: as per HPI, no easy bruising - Allergic/Immunologic Allergic/Immunologic: as per HPI - Constitutional Vitals: Temp Pulse Resp BP Pulse Ox 101.1 F H 94 16 101/65 94 L 05/17/16 21:19 05/17/16 23:28 05/18/16 00:55 05/18/16 00:55 05/17/16 23:28 General appearance: Present: cooperative, A&O X 3, obese - Head Head exam: Present: atraumatic, normocephalic - Eye Eye exam: Present: PERRL, conjuntiva pink, sclera anicteric Pupils: Present: PERRL - Neck Neck exam general surgery: Present: supple, trachea midline. Absent: lymphadenopathy - Respiratory Respiratory exam: Present: decreased breath sounds. Absent: accessory muscle use, rales, rhonchi, wheezes - Cardiovascular Cardiovascular exam: Present: RRR, +S1, +S2. Absent: diastolic murmur, gallop, rubs, systolic murmur - GI/Abdominal GI/Abdominal exam: Present: normal bowel sounds, soft, no peritoneal signs. Absent: distended, tenderness - Extremities Exam Extremities exam: Present: warm, radial pulses palpable and symetrical. Absent : calf tenderness, cyanotic, pedal edema - Neurological Exam Neurological exam: Present: CN II-XII intact, oriented X3, no focal deficits. Absent: pronater drift, facial droop, speech deficit - Skin Skin exam: Present: dry, intact Internal Med - H&P Results - Labs CBC & Chem 7: 05/17/16 21:17 05/17/16 21:17
[2016-05-18] MEDS ORDERED: Albuterol 2.5 MG/3 ML NEBULIZER IH PRN (01:25)
[2016-05-18] MEDS ORDERED: Naloxone 0.4 MG/ML INJ IVP PRN (01:25)
[2016-05-18] MEDS ORDERED: *HR* Morphine 2 MG/ML SYRINGE IVP PRN (01:25)
[2016-05-18] MEDS ORDERED: Ondansetron 4 MG/2 ML VIAL IVP PRN (01:25)
[2016-05-18] MEDS ORDERED: Acetaminophen 325 MG TABLET PO PRN (01:25)
[2016-05-18] MEDS ORDERED: Vancomycin 1,000 MG in D5% in Water 250 ML IVPB ONE (02:00)
[2016-05-18] MEDS ORDERED: Vancomycin (wt based) 1,000 MG VIAL IVPB SCH (02:00)
[2016-05-18 02:57] LABS: Hematocrit 24.7 % (37.5-50.1); Hemoglobin 7.9 g/dL (12.9-16.9); Mean Corpuscular Hemoglobin 29.8 pg (28.0-33.3); Mean Corpuscular Volume 93.2 fL (83.0-100.0); Mean Platelet Volume 11.2 fL (9.4-12.4); Red Blood Count 2.65 M/mcL (4.19-5.50); Red Cell Distribution Width 17.6 % (11.5-14.5)
[2016-05-18 02:58] LABS: Platelet Count 32 K/mcL (140-400)
[2016-05-18 03:08] LABS: Calcium 8.4 mg/dL (8.6-10.8); Magnesium 1.2 mg/dL (1.6-2.6); Potassium 4.4 mEq/L (3.5-4.5)
[2016-05-18] MEDS: Ipratropium/Albuterol Neb 3 ML IH SCH ×4 (03:35→23:48)
[2016-05-18] MEDS ORDERED: Piperacillin/Tazobactam 3.375 GM VIAL IVPB ONE (06:01)
[2016-05-18] MEDS: Piperacillin/Tazobactam 3.375 GM in D5% in Water (Mini-Bag+) 100 ML IVPB SCH ×3 (06:06→22:19)
[2016-05-18] MEDS ORDERED: *HR* Alteplase (Cathflo) 2 MG VIAL IVP PRN (11:24)
[2016-05-18] MEDS ORDERED: Magnesium Sulfate 2 GM in D5% in Water 100 ML IVPB ONE (11:24)
[2016-05-18] MEDS ORDERED: Ondansetron ODT 4 MG TAB.RAPDIS PO PRN (11:25)
[2016-05-18] MEDS ORDERED: *HR* LORazepam 0.5 MG TABLET PO PRN (11:25)
[2016-05-18] MEDS ORDERED: Magic Mouthwash 10 ML UD Cup PO PRN (11:25)
[2016-05-18] MEDS ORDERED: ALPRAZolam 0.5 MG TABLET PO PRN (11:25)
[2016-05-18] MEDS ORDERED: Lidocaine 1% 20 ML MDV INFILT ONE (12:15)
[2016-05-18] MEDS ORDERED: Lidocaine -MPF 1% 2 ML VIAL INFILT ONE (12:30)
[2016-05-18] MEDS: Vancomycin 2,000 MG in D5% in Water 500 ML IVPB SCH (14:04)
[2016-05-18] MEDS: *HR* HYDROcodone/Acet 5/325 mg TABLET PO PRN ×2 (16:26→22:18)
--- NOTE | 2016-05-18 18:08 | Electrocardiograph Report ---
[place] [id number] Test Date: 2016-05-17 Pat Name: Darien Ricardo Department: 104 Room: [facility] Gender: M Segment Block Layer: ALEJANDRO : 1950 Requested By: Librado Anglin Order Number: [id number] Reading MD: Helena Galvez Measurements Intervals [place] Rate: 118 P: 4 TN: 191 QRS: -1 QRSD: 98 T: 37 QT: 295 QTc: 365 Interpretive Statements SINUS TACHYCARDIA LOW QRS VOLTAGE IN EXTREMITY LEADS ABNORMAL RHYTHM ECG Electronically Signed On 05-18-2016 18:07:14 EDT by Helena Galvez
[2016-05-18] MEDS: *HR* Morphine Immed Rel 30 MG TABLET PO PRN (22:33)
[2016-05-19] MEDS: Ipratropium/Albuterol Neb 3 ML IH SCH ×5 (04:13→22:55)
[2016-05-19 04:44] LABS: Hematocrit 21.6 % (37.5-50.1); Mean Corpuscular HGB Conc 32.4 g/dL (31.6-35.5)
[2016-05-19 04:46] LABS: Immature Platelets 10.9 % (1.1-6.1); Mean Corpuscular Volume 92.7 fL (83.0-100.0); Mean Platelet Volume 11.5 fL (9.4-12.4); Nucleated Red Blood Cells 0.6 /100 WBC (0); Red Blood Count 2.33 M/mcL (4.19-5.50); Red Cell Distribution Width 17.5 % (11.5-14.5)
[2016-05-19 04:48] LABS: Platelet Count 47 K/mcL (140-400)
[2016-05-19 04:58] LABS: Calcium 8.8 mg/dL (8.6-10.8); Magnesium 1.8 mg/dL (1.6-2.6); Potassium 4.4 mEq/L (3.5-4.5)
[2016-05-19 05:10] LABS: Large Platelets Present (Not Present); Lymphocytes # 0.6 K/mcL (0.6-4.6); Monocytes # 0.5 K/mcL (0.0-1.3); Platelet Estimate Decreased (Normal); Reactive Lymphocytes Present (Not Present)
[2016-05-19 05:13] LABS: Anisocytosis 1+ (Not Present)
[2016-05-19 05:14] LABS: Macrocytosis Present (Not Present); Microcytosis Present (Not Present); Polychromasia 1+ (Not Present)
[2016-05-19] MEDS: Piperacillin/Tazobactam 3.375 GM in D5% in Water (Mini-Bag+) 100 ML IVPB SCH ×3 (06:14→21:56)
[2016-05-19] MEDS: Folic Acid 1 MG TABLET PO SCH (08:26)
[2016-05-19] MEDS: Metoprolol XL (24 HR) Succ 25 MG TAB.ER.24H PO SCH (08:26)
[2016-05-19] MEDS: Vancomycin 2,000 MG in D5% in Water 500 ML IVPB SCH (15:00)
--- NOTE | 2016-05-19 16:10 | Internal Med Progress Note ---
Date of Encounter: 05/19/16 Time of Encounter: 18:50 - Assessment and plan (1) COPD (chronic obstructive pulmonary disease) Current Visit: No Status: Chronic Qualifiers: COPD type: unspecified COPD Qualified Code(s): J44.9 - Chronic obstructive pulmonary disease, unspecified (2) Upper respiratory infection Current Visit: No Status: Acute Qualifiers: URI type: unspecified URI Qualified Code(s): J06.9 - Acute upper respiratory infection, unspecified (3) Fever Current Visit: Yes Status: Acute Qualifiers: Fever type: due to other condition Qualified Code(s): R50.81 - Fever presenting with conditions classified elsewhere (4) Tachycardia Current Visit: Yes Status: Acute (5) Pneumonia Current Visit: Yes Status: Acute Qualifiers: Pneumonia type: due to unspecified organism Laterality: right Lung location: lower lobe of lung Qualified Code(s): J18.1 - Lobar pneumonia, unspecified organism (6) Sepsis Current Visit: Yes Status: Acute Qualifiers: Sepsis type: sepsis due to unspecified organism Qualified Code(s): A41.9 - Sepsis, unspecified organism (7) Thrombocytopenia Current Visit: Yes Status: Acute - Time Spent With Patient 25 - 35 minutes - Subjective Interval history: carlos nd examine at bedide. he is afebrile. Reports that SOB has improved. BP better. denies any other complaints - Constitutional Vitals: Temp Pulse Resp BP Pulse Ox 96.8 F L 76 16 106/76 98 05/19/16 08:25 05/19/16 15:45 05/19/16 11:20 05/19/16 10:00 05/19/16 11:20 General appearance: Present: cooperative, A&O X 3, obese - Head Head exam: Present: atraumatic, normocephalic - Eye Eye exam: Present: PERRL, conjuntiva pink, sclera anicteric Pupils: Present: PERRL - Neck Neck exam general surgery: Present: supple, trachea midline. Absent: lymphadenopathy - Respiratory Respiratory exam: Present: decreased breath sounds, CTAB, rhonchi, wheezes. Absent: accessory muscle use, rales - Cardiovascular Cardiovascular exam: Present: RRR, +S1, +S2. Absent: diastolic murmur, gallop, rubs, systolic murmur - GI/Abdominal GI/Abdominal exam: Present: normal bowel sounds, soft, no peritoneal signs. Absent: distended, tenderness - Extremities Exam Extremities exam: Present: warm, radial pulses palpable and symetrical. Absent : calf tenderness, cyanotic, pedal edema - Neurological Exam Neurological exam: Present: CN II-XII intact, oriented X3, no focal deficits. Absent: pronater drift, facial droop, speech deficit - Skin Skin exam: Present: dry, intact Internal Medicine: Result - Labs CBC & Chem 7: 05/19/16 04:30 05/19/16 04:30 Labs: Short CBC 05/19/16 Range/Units 04:30 WBC 5.2 (4.3-11.1) K/mcL Hgb 7.0 L (12.9-16.9) g/dL Hct 21.6 L (37.5-50.1) % Plt Count 47 L (140-400) K/mcL Neutrophils # 4.0 (1.6-8.9) K/mcL BMP 05/19/16 04:30 Sodium 141 Potassium 4.4 Chloride 107 Carbon Dioxide 27 BUN 22 Creatinine 1.46 H Glucose 116 H Calcium 8.8 - ABG Interpretation ABG results: PT/INR, D-dimer PT 15.5 Seconds (9.4-12.1) H 05/17/16 21:17 Consult Discharge Plan - Plan Referrals: Maxine Delatorre CNP [Primary Care Provider] -
[2016-05-19] MEDS: *HR* Morphine Immed Rel 30 MG TABLET PO PRN (20:29)
[2016-05-19] MEDS: *HR* HYDROcodone/Acet 5/325 mg TABLET PO PRN (20:29)
[2016-05-19] MEDS: (Fluticasone/Vilanterol [Breo Ellipta 100-25 Mcg Inh]) IH SCH (20:33)
[2016-05-20 04:18] LABS: Nucleated Red Blood Cells 0.4 /100 WBC (0)
[2016-05-20 04:20] LABS: Hematocrit 21.6 % (37.5-50.1); Hemoglobin 7.1 g/dL (12.9-16.9); Immature Platelets 7.1 % (1.1-6.1); Mean Corpuscular HGB Conc 32.9 g/dL (31.6-35.5); Mean Corpuscular Hemoglobin 30.7 pg (28.0-33.3); Mean Corpuscular Volume 93.5 fL (83.0-100.0); Mean Platelet Volume 10.7 fL (9.4-12.4); Red Blood Count 2.31 M/mcL (4.19-5.50)
[2016-05-20 04:29] LABS: BUN/Creatinine Ratio 16 (6-26); Blood Urea Nitrogen 23 mg/dL (8-26); Calcium 8.7 mg/dL (8.6-10.8); Carbon Dioxide 27 mEq/L (19-29); Chloride 106 mEq/L (98-109); Glucose 77 mg/dL (70-99); Osmolality,Calculated 292 (280-300); Potassium 4.2 mEq/L (3.5-4.5); Sodium 140 mEq/L (136-145); eGFR For African Americans > 60 (> 60); eGFR For Non-African Americans 50 (> 60)
[2016-05-20 04:39] LABS: Platelet Count 66 K/mcL (140-400)
[2016-05-20 04:41] LABS: Lymphocytes # 1.9 K/mcL (0.6-4.6); Monocytes # 0.3 K/mcL (0.0-1.3); Neutrophils # 5.5 K/mcL (1.6-8.9)
[2016-05-20 04:42] LABS: Anisocytosis 2+ (Not Present); Macrocytosis Present (Not Present); Platelet Estimate Decreased (Normal); Polychromasia 1+ (Not Present)
[2016-05-20] MEDS: Ipratropium/Albuterol Neb 3 ML IH SCH ×4 (05:29→23:39)
[2016-05-20] MEDS: Piperacillin/Tazobactam 3.375 GM in D5% in Water (Mini-Bag+) 100 ML IVPB SCH ×2 (05:34→15:18)
[2016-05-20] MEDS: Metoprolol XL (24 HR) Succ 25 MG TAB.ER.24H PO SCH (08:01)
[2016-05-20] MEDS: Folic Acid 1 MG TABLET PO SCH (08:02)
[2016-05-20] MEDS: (Fluticasone/Vilanterol [Breo Ellipta 100-25 Mcg Inh]) IH SCH (12:20)
[2016-05-20] MEDS ORDERED: 0.9 % Sodium Chloride 250 ML ONE (12:23)
[2016-05-20] MEDS ORDERED: *HR* LORazepam 0.5 MG TABLET PO PRN (12:40)
[2016-05-20] MEDS ORDERED: Naloxone 0.4 MG/ML INJ IVP PRN (12:40)
[2016-05-20] MEDS ORDERED: ALPRAZolam 0.5 MG TABLET PO PRN (12:40)
[2016-05-20] MEDS ORDERED: *HR* Morphine 2 MG/ML SYRINGE IVP PRN (12:40)
[2016-05-20] MEDS ORDERED: Acetaminophen 325 MG TABLET PO PRN (12:40)
[2016-05-20] MEDS ORDERED: Albuterol 2.5 MG/3 ML NEBULIZER IH PRN (12:40)
[2016-05-20] MEDS ORDERED: Ondansetron ODT 4 MG TAB.RAPDIS PO PRN (12:40)
[2016-05-20] MEDS ORDERED: Magic Mouthwash 10 ML UD Cup PO PRN (12:40)
[2016-05-20] MEDS ORDERED: *HR* Morphine Immed Rel 30 MG TABLET PO PRN (12:40)
[2016-05-20] MEDS ORDERED: Ondansetron 4 MG/2 ML VIAL IVP PRN (12:40)
[2016-05-20] MEDS ORDERED: Vancomycin 2,000 MG in D5% in Water 500 ML IVPB SCH (14:00)
[2016-05-20] MEDS: Vancomycin 2,000 MG in D5% in Water 500 ML IVPB SCH (15:18)
[2016-05-20] MEDS: *HR* HYDROcodone/Acet 5/325 mg TABLET PO PRN (15:26)
--- NOTE | 2016-05-20 18:35 | Internal Med Progress Note ---
Date of Encounter: 05/20/16 Time of Encounter: 18:34 - Assessment and plan (1) COPD (chronic obstructive pulmonary disease) Current Visit: No Status: Chronic Qualifiers: COPD type: unspecified COPD Qualified Code(s): J44.9 - Chronic obstructive pulmonary disease, unspecified (2) Upper respiratory infection Current Visit: No Status: Acute Qualifiers: URI type: unspecified URI Qualified Code(s): J06.9 - Acute upper respiratory infection, unspecified (3) Fever Current Visit: Yes Status: Acute Qualifiers: Fever type: due to other condition Qualified Code(s): R50.81 - Fever presenting with conditions classified elsewhere (4) Tachycardia Current Visit: Yes Status: Acute (5) Pneumonia Current Visit: Yes Status: Acute Qualifiers: Pneumonia type: due to unspecified organism Laterality: right Lung location: lower lobe of lung Qualified Code(s): J18.1 - Lobar pneumonia, unspecified organism (6) Sepsis Current Visit: Yes Status: Acute Qualifiers: Sepsis type: sepsis due to unspecified organism Qualified Code(s): A41.9 - Sepsis, unspecified organism (7) Thrombocytopenia Current Visit: Yes Status: Acute Assessment and plan: 65 year old male with past medical history of lung cancer, adenocarcinoma diagnosed in 2013, on treatment with chemotherapy admitted to the hospital with sob, fever and generalized weakness. Right LL pneumonia: Ct chest s/o RLL penumonia. On tx as HCAP given immunosuppression and recent hospitalisations. Blood cultures negative to date. he ramins afebrile and improving clinically. kelby deescalate based on c/s. Sepsis secondary to pneumonia: Hypotensive on admission which has currently resolved. On antibiotics as above. Blood c/s NTD. Thrombocytopenia: Related to cancer chemotherapy. Monitor as he is on zosyn Essential HTN: Home meds were held due to hypotension, will restart home meds as tolearted AQUILES: c/r. BIPAP at night. Adenocarcinoma of Lung: On tx, oncology following as outpt. DVT Prophylaxis: SCD's - Time Spent With Patient 25 - 35 minutes - Subjective Interval history: carlos nd examine at bedide. he is afebrile. Reports that SOB has improved. BP better. denies any other complaints - Constitutional Vitals: Temp Pulse Resp BP Pulse Ox 99.3 F 97 16 127/73 93 L 05/20/16 15:10 05/20/16 16:00 05/20/16 16:21 05/20/16 16:00 05/20/16 16:21 General appearance: Present: cooperative, A&O X 3, obese - Head Head exam: Present: atraumatic, normocephalic - Eye Eye exam: Present: PERRL, conjuntiva pink, sclera anicteric Pupils: Present: PERRL - Neck Neck exam general surgery: Present: supple, trachea midline. Absent: lymphadenopathy - Respiratory Respiratory exam: Present: CTAB, rales, rhonchi (on 2 -3 l of oxygen). Absent: accessory muscle use, wheezes - Cardiovascular Cardiovascular exam: Present: RRR, +S1, +S2. Absent: diastolic murmur, gallop, rubs, systolic murmur - GI/Abdominal GI/Abdominal exam: Present: normal bowel sounds, soft, no peritoneal signs. Absent: distended, tenderness - Extremities Exam Extremities exam: Present: warm, radial pulses palpable and symetrical. Absent : calf tenderness, cyanotic, pedal edema - Neurological Exam Neurological exam: Present: CN II-XII intact, oriented X3, no focal deficits. Absent: pronater drift, facial droop, speech deficit - Skin Skin exam: Present: dry, intact Internal Medicine: Result - Labs CBC & Chem 7: 05/20/16 04:05 05/20/16 04:05 Labs: Short CBC 05/20/16 Range/Units 04:05 WBC 7.7 (4.3-11.1) K/mcL Hgb 7.1 L (12.9-16.9) g/dL Hct 21.6 L (37.5-50.1) % Plt Count 66 L (140-400) K/mcL Neutrophils # 5.5 (1.6-8.9) K/mcL BMP 05/20/16 04:05 Sodium 140 Potassium 4.2 Chloride 106 Carbon Dioxide 27 BUN 23 Creatinine 1.44 H Glucose 77 Calcium 8.7 - ABG Interpretation ABG results: PT/INR, D-dimer PT 15.5 Seconds (9.4-12.1) H 05/17/16 21:17 Consult Discharge Plan - Plan Referrals: Maxine Delatorre CNP [Primary Care Provider] -
[2016-05-21] MEDS: Piperacillin/Tazobactam 3.375 GM in D5% in Water (Mini-Bag+) 100 ML IVPB SCH ×2 (01:11→09:09)
[2016-05-21] MEDS: Vancomycin 2,000 MG in D5% in Water 500 ML IVPB SCH (02:45)
[2016-05-21] MEDS: *HR* HYDROcodone/Acet 5/325 mg TABLET PO PRN ×2 (02:45→15:01)
[2016-05-21] MEDS: Ipratropium/Albuterol Neb 3 ML IH SCH ×2 (03:42→10:42)
[2016-05-21 04:20] LABS: Hematocrit 23.7 % (37.5-50.1); Hemoglobin 7.8 g/dL (12.9-16.9); Immature Platelets 6.8 % (1.1-6.1); Mean Corpuscular HGB Conc 32.9 g/dL (31.6-35.5); Mean Corpuscular Hemoglobin 30.6 pg (28.0-33.3); Mean Corpuscular Volume 92.9 fL (83.0-100.0); Mean Platelet Volume 10.6 fL (9.4-12.4); Nucleated Red Blood Cells 0.7 /100 WBC (0); Red Blood Count 2.55 M/mcL (4.19-5.50); Red Cell Distribution Width 18.5 % (11.5-14.5)
[2016-05-21 04:29] LABS: Calcium 8.6 mg/dL (8.6-10.8)
[2016-05-21 04:30] LABS: Platelet Count 84 K/mcL (140-400)
[2016-05-21 04:47] LABS: Anisocytosis 1+ (Not Present); Lymphocytes # 0.8 K/mcL (0.6-4.6); Macrocytosis Present (Not Present); Monocytes # 0.4 K/mcL (0.0-1.3); Neutrophils # 8.4 K/mcL (1.6-8.9); Platelet Estimate Decreased (Normal)
[2016-05-21 04:48] LABS: Polychromasia 1+ (Not Present)
[2016-05-21 07:33] VITALS: BP 90/54
[2016-05-21] MEDS ORDERED: Folic Acid 1 MG TABLET PO SCH (09:00)
[2016-05-21] MEDS ORDERED: (Fluticasone/Vilanterol [Breo Ellipta 100-25 Mcg Inh]) IH SCH (09:00)
[2016-05-21] MEDS ORDERED: Metoprolol XL (24 HR) Succ 25 MG TAB.ER.24H PO SCH (09:00)
--- NOTE | 2016-05-21 09:34 | Internal Med Progress Note ---
- Constitutional Vitals: Temp Pulse Resp BP Pulse Ox 98 F 112 16 90/54 93 L 05/21/16 07:31 05/21/16 07:31 05/21/16 07:31 05/21/16 07:31 05/21/16 07:31 General appearance: Present: cooperative, A&O X 3, obese Internal Medicine: Result - Labs CBC & Chem 7: 05/21/16 04:00 05/21/16 04:00 Labs: Short CBC 05/21/16 Range/Units 04:00 WBC 9.8 (4.3-11.1) K/mcL Hgb 7.8 L (12.9-16.9) g/dL Hct 23.7 L (37.5-50.1) % Plt Count 84 L (140-400) K/mcL Neutrophils # 8.4 (1.6-8.9) K/mcL BMP 05/21/16 04:00 Sodium 140 Potassium 4.0 Chloride 105 Carbon Dioxide 25 BUN 19 Creatinine 1.49 H Glucose 111 H Calcium 8.6 - ABG Interpretation ABG results: PT/INR, D-dimer PT 15.5 Seconds (9.4-12.1) H 05/17/16 21:17 - VTE Documentation of Mechanical Device: Intermittent pneumatic compression device Consult Discharge Plan - Plan Referrals: Maxine Delatorre CNP [Primary Care Provider] -
[2016-05-21] MEDS ORDERED: Levofloxacin 750 MG/150 ML 750 MG/150 ML BAG IVPB SCH (11:00)
--- NOTE | 2016-05-21 11:20 | Discharge Summary ---
<Christa Fernandez - Last Filed: 05/21/16 12:45> Date of Encounter: 05/21/16 Time of Encounter: 11:18 - Discharge Diagnosis (1) Right lower lobe pneumonia Priority: Primary Status: Acute Qualifiers: Pneumonia type: due to unspecified organism Qualified Code(s): J18.1 - Lobar pneumonia, unspecified organism (2) Sepsis Priority: Primary Status: Resolved Qualifiers: Sepsis type: sepsis due to unspecified organism Qualified Code(s): A41.9 - Sepsis, unspecified organism (3) Anemia Priority: Primary Status: Acute Qualifiers: Anemia type: other cause Other causes of anemia: chronic disease, other Qualified Code(s): D63.8 - Anemia in other chronic diseases classified elsewhere (4) Adenocarcinoma of lung Priority: Primary Status: Chronic Qualifiers: Laterality: right Qualified Code(s): C34.91 - Malignant neoplasm of unspecified part of right bronchus or lung (5) COPD (chronic obstructive pulmonary disease) Priority: Secondary Status: Chronic Qualifiers: COPD type: unspecified COPD Qualified Code(s): J44.9 - Chronic obstructive pulmonary disease, unspecified (6) Hypertension Priority: Secondary Status: Chronic Qualifiers: Hypertension type: essential hypertension Qualified Code(s): I10 - Essential (primary) hypertension (7) Morbid obesity with BMI of 40.0-44.9, adult Priority: Secondary Status: Chronic (8) AQUILES (obstructive sleep apnea) Priority: Secondary Status: Chronic (9) Thrombocytopenia Priority: Primary Status: Acute - Discharge Medications Prescriptions: Levofloxacin [Levaquin] 750 mg PO DAILY #7 tablet Home Medications: Alprazolam [Xanax] 1 tab PO HS PRN 10/01/14 [History] Escitalopram Oxalate [Lexapro] 10 mg PO DAILY 10/01/14 [History] Furosemide [Lasix] 40 mg PO DAILY 10/01/14 [History] Metoprolol Succinate [Toprol Xl] 25 mg PO DAILY 10/01/14 [History] Spironolactone 50 mg PO DAILY 10/05/14 [History] Indomethacin 75 mg PO DAILY PRN 11/02/15 [History] Guaifenesin [Guaifenesin ER] 1,200 mg PO BID #14 tab.er.12h 03/14/16 [Rx] LORazepam [Ativan] 0.5 mg PO Q6H PRN #30 tablet 03/15/16 [Rx] Lidocaine/Prilocaine CREAM [Emla] 1 gm TP ONCE PRN #1 tube 03/15/16 [Rx] Magic Mouthwash 10 ml PO Q4H PRN #240 ml 03/15/16 [Rx] Omeprazole [PriLOSEC] 20 mg PO DAILY #30 capsule. 03/15/16 [Rx] Ondansetron [Zofran] 8 mg PO Q8HR PRN #90 tablet 03/15/16 [Rx] Prochlorperazine Maleate [Compazine] 10 mg PO Q6HR PRN #40 tablet 03/15/16 [Rx] Folic Acid 1 mg PO DAILY #30 tablet 03/31/16 [Rx] Ondansetron [Zofran ODT] 8 mg SL Q8H PRN #60 tab.rapdis 03/31/16 [Rx] Albuterol Sulfate [Albuterol Inhaler] 2 puff IH Q4-6H PRN #1 inhaler 04/20/16 [ Rx] HYDROcodone/Acet 5/325 mg [[place] 5-325 mg] 1 tab PO Q6H PRN #90 tab 05/02/16 [Rx ] Morphine Sulfate 15 - 30 mg PO Q4H PRN #120 tab 05/02/16 [Rx] Crizotinib [Xalkori] 250 mg PO BID #60 capsule 05/04/16 [Rx] Fluticasone/Vilanterol [Breo Ellipta 100-25 Mcg INH] 1 puff IH DAILY #1 blst.w.dev 05/04/16 [Rx] Levofloxacin [Levaquin] 750 mg PO DAILY #7 tablet 05/21/16 [Rx] Allergies/Adverse Reactions: Allergies No Known Allergies Allergy (Verified 05/11/16 11:03) Date of admission: 05/18/16 02:10 Primary care physician: Maxine Delatorre CNP Discharging clinician: John Taveras Anticipated date of discharge: 05/21/16 - Patient Status Disposition: Home, Self-Care Condition: Good Functional capacity at discharge: independent ambulation Overall status at discharge: patient is progressing back to baseline - Discharge Instructions Instructions: Pneumonia (DC) Follow Up With: Juan Ramon,Maxine G, QA ANALYST [Primary Care Provider] - Additional Instructions: Follow up with your PCP in 3-5 days. You will need your CBC repeated this week. Take the full dose of levaquin 750mg daily for 7 days. - Diet and Activity Activity: increase activity as tolerated Diet: advance to your usual diet Hospital course: Mr. Ricardo is a 65 year old male with past medical history of lung cancer, adenocarcinoma diagnosed in 2013, receiving therapy in our [facility], RUL lung resection, former Smoker, COPD, Obstructive Sleep Apnea, Hypertension. Patient presented to [facility] Emergency Department 05/17 complaining of generalized weakness, fever, chills, and progressive SOB for 5 days. Upon initial presentation to the emergency department the patient was found febrile with a temperature of 101.1F, tachycardic with a heart rate of 126, hypotensive with a blood pressure 93/76, oxygen saturation 95%, Hgb 8.2, platelet count 32,000, creatinine 1.71, and glucose of 127. Patient did receive a cycle of carboplatin , Alimta and Neulasta 2 weeks prior to admission. CT of the chest revealed a right lower lobe pneumonia. The patient received a dose of IV antibiotics in the emergency department (Zosyn and vancomycin) and was admitted for further management and workup. The patient had a drop in Hgb to 7 on 05/19 and 7.1 on . The patient was transfused 05/20 with 1 unit PRBC. Hgb 7.8 today. Patient received IV zosyn and vancomycin through 05/21. He had improvement of his dyspnea and felt well, asking to discharge home on 05/21. A CXR repeated on revealed mild interval improvement with slightly improved aeration of the right lung, loculated pleural disease is unchanged. He was given one dose of levaquin IV 05/21 and will be discharged on Levaquin 750mg PO daily for 7 days. He will have chemo on . Patient was instructed to start PO antibiotics tomorrow. The patient was counseled on concerning symptoms to watch for and to follow up with his PCP within 3-5 days. He will need a repeat CBC this week. The patient will be discharged home in stable condition. - Time Spent with Patient Total time spent providing and/or coordinating discharge services: - Constitutional Vitals: Temp Pulse Resp BP Pulse Ox 98 F 112 16 90/54 93 L 05/21/16 07:31 05/21/16 07:31 05/21/16 07:31 05/21/16 07:31 05/21/16 07:31 General appearance: Present: cooperative, A&O X 3, obese - Head Head exam: Present: atraumatic, normocephalic - Eye Eye exam: Present: EOMI, PERRL, conjuntiva pink, sclera anicteric Pupils: Present: PERRL - Neck Neck exam general surgery: Present: supple, trachea midline. Absent: lymphadenopathy - Respiratory Respiratory exam: Present: decreased breath sounds, rales (b/l bases), wheezes ( b/l bases, mild). Absent: accessory muscle use, respiratory distress, tachypnea Additional comments: Port in place right upper chest - Cardiovascular Cardiovascular exam: Present: RRR, +S1, +S2. Absent: diastolic murmur, gallop, rubs, systolic murmur - GI/Abdominal GI/Abdominal exam: Present: normal bowel sounds, soft, no peritoneal signs. Absent: distended, tenderness Additional comments: colostomy bag in place left lower quadrant, no surrounding erythema. - Extremities Exam Extremities exam: Present: normal capillary refill, warm, radial pulses palpable and symetrical. Absent: calf tenderness, cyanotic, pedal edema, tenderness - Neurological Exam Neurological exam: Present: alert, oriented X3, no focal deficits. Absent: motor sensory deficit, facial droop, speech deficit - Psychiatric Psychiatric exam: Present: normal affect, normal mood - Skin Skin exam: Present: dry, intact. Absent: diaphoretic - VTE Documentation of Mechanical Device: Intermittent pneumatic compression device <John Taveras - Last Filed: 05/21/16 15:52> - Discharge Diagnosis (1) Pneumonia Priority: Primary Status: Suspected Qualifiers: Pneumonia type: due to Pneumococcus Laterality: right Lung location: lower lobe of lung Qualified Code(s): J13 - Pneumonia due to Streptococcus pneumoniae (2) Sepsis Priority: Primary Status: Resolved Qualifiers: Sepsis type: sepsis due to unspecified organism Qualified Code(s): A41.9 - Sepsis, unspecified organism (3) Adenocarcinoma of lung Status: Chronic Qualifiers: Laterality: right Qualified Code(s): C34.91 - Malignant neoplasm of unspecified part of right bronchus or lung (4) COPD (chronic obstructive pulmonary disease) Status: Chronic Qualifiers: COPD type: unspecified COPD Qualified Code(s): J44.9 - Chronic obstructive pulmonary disease, unspecified (5) Hypertension Status: Chronic Qualifiers: Hypertension type: essential hypertension Qualified Code(s): I10 - Essential (primary) hypertension (6) Anemia Status: Acute Qualifiers: Anemia type: other cause Other causes of anemia: chronic disease, other Qualified Code(s): D63.8 - Anemia in other chronic diseases classified elsewhere (7) Morbid obesity with BMI of 40.0-44.9, adult Status: Chronic Date of admission: 05/18/16 02:10 Primary care physician: Maxine Delatorre CNP Hospital course: Mr. Ricardo is a 65 year old male - Time Spent with Patient Total time spent providing and/or coordinating discharge services: 40min - Constitutional Vitals: Temp Pulse Resp BP Pulse Ox 98 F 112 18 90/54 91 L 05/21/16 07:31 05/21/16 07:31 05/21/16 10:42 05/21/16 07:31 05/21/16 10:42 - Attending Attestation I examined this patient and my medical decision-making was reviewed with the Resident Physician on 05/21/16. I agree with the documented findings, disposition and treatment plan as described except to the extent set forth below. Mr Ricardo is feeling much better. He really feels ready to go home today. Less cough. Not using oxygen. Ambulating well. No fever and stable vitals. Repeat CXR shows some improvement. Exam Alert. Comfortable Heart reg Decreased breath sounds on R Plan D/C home today Follow up as outpatient.
[2016-05-21] MEDS ORDERED: Aminoglycoside Consult 1 EACH MC ONE (15:30)
== END 2016-05-21 15:31 | disposition home or self-care (01) | DRG 871 ==
LOC: ICNU 19:41 → EMEROO 19:41 → ICNU 05-18 00:41 → SUATTDRO 05-18 02:10 → 2ANU 05-20 18:54
PROVIDERS: ADMIT Internal Medicine; ATTEND Internal Medicine

== ENCOUNTER 2016-06-05 15:37 | Observation (INO) ==
[2016-06-05 16:22] LABS: Hematocrit 15.4 % (37.5-50.1); Immature Granulocytes % 0.7 % (0-4); Mean Corpuscular HGB Conc 33.1 g/dL (31.6-35.5)
[2016-06-05 16:23] LABS: Eosinophils % 0.7 %; Lymphocytes # 0.7 K/mcL (0.6-4.6); Lymphocytes % 21.7 %; Mean Corpuscular Hemoglobin 30.7 pg (28.0-33.3); Mean Corpuscular Volume 92.8 fL (83.0-100.0); Mean Platelet Volume 12.1 fL (9.4-12.4); Monocytes # 0.2 K/mcL (0.0-1.3); Neutrophils # 2.2 K/mcL (1.6-8.9); Red Blood Count 1.66 M/mcL (4.19-5.50); Red Cell Distribution Width 18.6 % (11.5-14.5); Segmented Neutrophils % 71.9 %
--- NOTE | 2016-06-05 16:27 | Emergency Department Note ---
Disposition Clinical Impression: Anemia Disposition: Admitted As Inpatient Referrals: Maxine Delatorre CNP [Primary Care Provider] - Forms: ED Satisfaction Letter Altered Mental Status HPI - General Chief Complaint: ED Altered Mental Status Stated Complaint: AMS/Weakness/Dizziness Time Seen by Provider: 06/05/16 16:13 Source: patient, EMS Limitations: no limitations Nursing Notes Reviewed: Yes Vital Signs Reviewed: Yes - History of Present Illness HPI Narrative: Patient presents with complaint of altered mental status. Per report patient has had symptoms over the past 3 days progressively getting worse. Patient has some signs of decreased lucency. Patient denies prior history of similar symptoms. Review of the nurse's nose reveals the patient also has had nosebleeds for 3 weeks. Patient receiving treatment over the cancer center for IV fluids and he was symptom verge from her further evaluation. Patient denies any pain denies any shortness of breath. When asked patient knows who he is and what year it is but he is not sure where he is. He continues to tell me that he is "here" when question where he located currently. Patient complains of diffuse weakness but denies numbness or tingling. Patient denies bowel or bladder dysfunction associated with this. - Related Data Home Medications Medication Instructions Recorded Confirmed Alprazolam [Xanax] 0.5 mg PO HS PRN 10/01/14 06/05/16 Escitalopram Oxalate [Lexapro] 10 mg PO DAILY 10/01/14 06/05/16 Furosemide [Lasix] 40 mg PO DAILY 10/01/14 06/01/16 Spironolactone 50 mg PO DAILY 10/05/14 06/05/16 Indomethacin 75 mg PO DAILY PRN 11/02/15 06/05/16 Metoprolol XL (24 HR) Succ [Toprol 25 mg PO DAILY 06/05/16 XL] Previous Rx's Medication Instructions Recorded Guaifenesin [Guaifenesin ER] 1,200 mg PO BID #14 tab.er.12h 03/14/16 LORazepam [Ativan] 0.5 mg PO Q6H PRN #30 tablet 03/15/16 Lidocaine/Prilocaine CREAM [Emla] 1 gm TP ONCE PRN #1 tube 03/15/16 Magic Mouthwash 10 ml PO Q4H PRN #240 ml 03/15/16 Omeprazole [PriLOSEC] 20 mg PO DAILY #30 capsule. 03/15/16 Prochlorperazine Maleate 10 mg PO Q6HR PRN #40 tablet 03/15/16 [Compazine] Folic Acid 1 mg PO DAILY #30 tablet 03/31/16 Ondansetron [Zofran ODT] 8 mg SL Q8H PRN #60 tab.rapdis 03/31/16 Albuterol Sulfate [Albuterol 2 puff IH Q4-6H PRN #1 inhaler 04/20/16 Inhaler] HYDROcodone/Acet 5/325 mg [[place] 1 tab PO Q6H PRN #90 tab 05/02/16 5-325 mg] Morphine Sulfate 15 - 30 mg PO Q4H PRN #120 tab 05/02/16 Crizotinib [Xalkori] 250 mg PO BID #60 capsule 05/04/16 Fluticasone/Vilanterol [Breo 1 puff IH DAILY #1 blst.w.dev 05/04/16 Ellipta 100-25 Mcg INH] Albuterol Neb [AccuNeb] 1.25 mg IH Q6H #30 inhsol 06/01/16 Megestrol Acetate [Megace] 10 ml PO DAILY #300 udc 06/01/16 Oxymetazoline [Afrin] 1 spray NS Q12HR PRN #1 bottle 06/05/16 Allergies Allergy/AdvReac Type Severity Reaction Status Date / Time No Known Allergies Allergy Verified 05/11/16 11:03 All systems ED: reviewed and negative except as stated. Past Medical History - Past Medical History Source: patient Medical history: Reports: aortic aneurysm, arthritis, cancer, CHF, COPD, hyperlipidemia, hypertension, malignancy, other Surgical history: Reports: colostomy Psychiatric history: Reports: no psych history - Social History Smoking Status: Former smoker Smokeless Tobacco Status: No Alcohol use: Reports: none Drug use: Reports: none Physical Exam - General Limitations: no limitations General appearance: alert, in no apparent distress - Head Head exam: atraumatic, normocephalic, normal inspection - Eye Eye exam: Present: normal appearance, PERRL, EOMI - ENT ENT exam: normal exam, normal oropharynx, mucous membranes moist - Neck Neck exam: Present: normal inspection, full ROM, trachea midline - Chest Chest inspection: Present: normal inspection, symmetric chest wall rise - Respiratory Respiratory exam: Present: normal lung sounds bilaterally - Cardiovascular Cardiovascular exam: Present: regular rate, normal rhythm, normal heart sounds - Abdominal Exam Abdominal exam: Present: soft, Non-Tender. Absent: tenderness, distention, guarding, rebound, rigidity - Extremities Exam Extremities exam: Present: normal inspection, full ROM. Absent: tenderness, pedal edema - Back Exam Back exam: Present: normal inspection, full ROM. Absent: tenderness - Neurological Exam Neurological exam: Present: alert, CN II-XII intact, reflexes normal. Absent: motor sensory deficit - Psychiatric Psychiatric exam: Present: normal affect, normal mood - Skin Skin exam: Present: warm, other (Icteric) Course Vital Signs Temperature 99.6 F 06/05/16 15:39 Pulse Rate 102 06/05/16 15:39 Respiratory Rate 18 06/05/16 15:39 Blood Pressure 111/69 06/05/16 15:39 O2 Sat by Pulse Oximetry 93 06/05/16 15:39 Temperature 99.6 F 06/05/16 15:39 Pulse Rate 97 06/05/16 17:37 Respiratory Rate 18 06/05/16 17:37 Blood Pressure 110/81 06/05/16 17:37 O2 Sat by Pulse Oximetry 99 06/05/16 17:37 Oxygen Delivery Oxygen Delivery Room Air Altered Mental Status - [facility] Narrative Medical decision making narrative: Discussed patient history of anemia. He states he received a blood transfusion of past. Patient reports that he is had blood in his colostomy bag few days ago. Patient also had some nosebleeds over the past 3 weeks. Patient denies any rectal bleeding and when offered a rectal exam he declined at this time. Discussed this patient with the hospitalist service and will admit the patient to their service with blood transfusions and further workup. - Lab Data Result diagrams: 06/05/16 16:12 06/05/16 16:12 Lab Results 06/05/16 06/05/16 06/05/16 Range/Units 16:12 16:12 16:12 WBC 3.0 L D (4.3-11.1) K/mcL RBC 1.66 L (4.19-5.50) M/mcL Hgb 5.1 L* D (12.9-16.9) g/dL Hct 15.4 L (37.5-50.1) % MCV 92.8 (83.0-100.0) fL MCH 30.7 (28.0-33.3) pg MCHC 33.1 (31.6-35.5) g/dL RDW 18.6 H (11.5-14.5) % Plt Count 10 L* D (140-400) K/mcL MPV 12.1 (9.4-12.4) fL Immature Gran % 0.7 (0-4) % Seg Neutrophils % 71.9 % Lymphocytes % 21.7 % Monocytes % 5.0 % Eosinophils % 0.7 % Basophils % 0.0 % Neutrophils # 2.2 (1.6-8.9) K/mcL Lymphocytes # 0.7 (0.6-4.6) K/mcL Monocytes # 0.2 (0.0-1.3) K/mcL Eosinophils # 0.0 (0.0-0.6) K/mcL Basophils # 0.0 (0.0-0.2) K/mcL Platelet Estimate Marked Decrease L (Normal) Hypochromasia Present A (Not Present) Anisocytosis 1+ A (Not Present) APTT 26.8 (26.0-36.0) Seconds Sodium 141 (136-145) mEq/L Potassium 4.3 (3.5-4.5) mEq/L Chloride 109 (98-109) mEq/L Carbon Dioxide 19 (19-29) mEq/L BUN 31 H (8-26) mg/dL Creatinine 1.51 H (0.72-1.25) mg/dL Est GFR ( Amer) 57 L (> 60) Est GFR (Non-Af Amer) 47 L (> 60) BUN/Creatinine Ratio 21 (6-26) Glucose 74 (70-99) mg/dL Calculated Osmolality 297 (280-300) Lactic Acid (0.5-2.2) mmol/L Calcium 8.6 (8.6-10.8) mg/dL Total Bilirubin 1.9 H (0.2-1.2) mg/dL AST 16 (5-34) Units/L ALT 21 (0-55) Units/L Alkaline Phosphatase 73 (38-126) Units/L Ammonia (18-72) mcmol/L Troponin I (0-0.03) ng/mL B-Natriuretic Peptide (0-100) pg/mL Serum Total Protein 6.0 (6.0-8.3) g/dL Albumin 3.1 L (3.5-5.0) g/dL Globulin 2.9 (2.4-3.5) g/dL Albumin/Globulin Ratio 1.1 (1.1-2.2) Blood Type Antibody Screen 06/05/16 06/05/16 06/05/16 Range/Units 16:12 16:12 16:12 WBC (4.3-11.1) K/mcL RBC (4.19-5.50) M/mcL Hgb (12.9-16.9) g/dL Hct (37.5-50.1) % MCV (83.0-100.0) fL MCH (28.0-33.3) pg MCHC (31.6-35.5) g/dL RDW (11.5-14.5) % Plt Count (140-400) K/mcL MPV (9.4-12.4) fL Immature Gran % (0-4) % Seg Neutrophils % % Lymphocytes % % Monocytes % % Eosinophils % % Basophils % % Neutrophils # (1.6-8.9) K/mcL Lymphocytes # (0.6-4.6) K/mcL Monocytes # (0.0-1.3) K/mcL Eosinophils # (0.0-0.6) K/mcL Basophils # (0.0-0.2) K/mcL Platelet Estimate (Normal) Hypochromasia (Not Present) Anisocytosis (Not Present) APTT (26.0-36.0) Seconds Sodium (136-145) mEq/L Potassium (3.5-4.5) mEq/L Chloride (98-109) mEq/L Carbon Dioxide (19-29) mEq/L BUN (8-26) mg/dL Creatinine (0.72-1.25) mg/dL Est GFR ( Amer) (> 60) Est GFR (Non-Af Amer) (> 60) BUN/Creatinine Ratio (6-26) Glucose (70-99) mg/dL Calculated Osmolality (280-300) Lactic Acid 1.7 (0.5-2.2) mmol/L Calcium (8.6-10.8) mg/dL Total Bilirubin (0.2-1.2) mg/dL AST (5-34) Units/L ALT (0-55) Units/L Alkaline Phosphatase (38-126) Units/L Ammonia 19 (18-72) mcmol/L Troponin I 0.00 (0-0.03) ng/mL B-Natriuretic Peptide (0-100) pg/mL Serum Total Protein (6.0-8.3) g/dL Albumin (3.5-5.0) g/dL Globulin (2.4-3.5) g/dL Albumin/Globulin Ratio (1.1-2.2) Blood Type Antibody Screen 06/05/16 06/05/16 Range/Units 16:12 17:06 WBC (4.3-11.1) K/mcL RBC (4.19-5.50) M/mcL Hgb (12.9-16.9) g/dL Hct (37.5-50.1) % MCV (83.0-100.0) fL MCH (28.0-33.3) pg MCHC (31.6-35.5) g/dL RDW (11.5-14.5) % Plt Count (140-400) K/mcL MPV (9.4-12.4) fL Immature Gran % (0-4) % Seg Neutrophils % % Lymphocytes % % Monocytes % % Eosinophils % % Basophils % % Neutrophils # (1.6-8.9) K/mcL Lymphocytes # (0.6-4.6) K/mcL Monocytes # (0.0-1.3) K/mcL Eosinophils # (0.0-0.6) K/mcL Basophils # (0.0-0.2) K/mcL Platelet Estimate (Normal) Hypochromasia (Not Present) Anisocytosis (Not Present) APTT (26.0-36.0) Seconds Sodium (136-145) mEq/L Potassium (3.5-4.5) mEq/L Chloride (98-109) mEq/L Carbon Dioxide (19-29) mEq/L BUN (8-26) mg/dL Creatinine (0.72-1.25) mg/dL Est GFR ( Amer) (> 60) Est GFR (Non-Af Amer) (> 60) BUN/Creatinine Ratio (6-26) Glucose (70-99) mg/dL Calculated Osmolality (280-300) Lactic Acid (0.5-2.2) mmol/L Calcium (8.6-10.8) mg/dL Total Bilirubin (0.2-1.2) mg/dL AST (5-34) Units/L ALT (0-55) Units/L Alkaline Phosphatase (38-126) Units/L Ammonia (18-72) mcmol/L Troponin I (0-0.03) ng/mL B-Natriuretic Peptide 131 H (0-100) pg/mL Serum Total Protein (6.0-8.3) g/dL Albumin (3.5-5.0) g/dL Globulin (2.4-3.5) g/dL Albumin/Globulin Ratio (1.1-2.2) Blood Type A POSITIVE Antibody Screen NEGATIVE - Radiology Data Radiology results reviewed: Yes I reviewed the patient's radiology results. - EKG Data EKG attestation: Yes I reviewed and interpreted this EKG. EKG results narrative: EKG is unchanged from previous EKG performed in April 2016 EKG shows normal: sinus rhythm Rate: normal Rhythm: NSR TPA Checklist - LKW: 3-4.5 hrs Add. Contraindications Patient/family understanding: The patient/family members have been counseled and understood the risk, benefit , and alternatives of treatment. Critical Care Time Total Critical Care Time: 45 Attestation: Critical care performed: Time is exclusive of separately billable procedures. Time includes: direct patient care, patient reassessment, coordination of patient care, interpretation of data (laboratory data, radiology data, and respiratory data), review of patient's medical records, medical consultation and documentation of patient care. Procedures included in critical care time: Procedures excluded from critical care time:
[2016-06-05 16:42] LABS: Albumin 3.1 g/dL (3.5-5.0); Albumin/Globulin Ratio 1.1 (1.1-2.2); Bilirubin,Total 1.9 mg/dL (0.2-1.2); Calcium 8.6 mg/dL (8.6-10.8); Globulin 2.9 g/dL (2.4-3.5); Hemoglobin 5.1 g/dL (12.9-16.9); Platelet Count 10 K/mcL (140-400); Potassium 4.3 mEq/L (3.5-4.5)
[2016-06-05 16:44] LABS: Platelet Estimate Marked Decrease (Normal)
[2016-06-05 16:46] LABS: Anisocytosis 1+ (Not Present); Hypochromasia Present (Not Present)
[2016-06-05] MEDS ORDERED: 0.9 % Sodium Chloride 500 ML ONE (18:48)
--- NOTE | 2016-06-05 19:59 | Internal Med History&Physical ---
Date of Encounter: 06/06/16 Time of Encounter: 19:56 Assessment and Plan (1) Hypotension Current visit: Yes Status: Acute Most likely a manifestation of significant chemotherapy-induced anemia. There is no sign of sepsis. Does not have blood loss anemia Qualifiers: Hypotension type: other hypotension type Qualified Code(s): I95.89 - Other hypotension (2) Altered mental status Current visit: Yes Status: Acute Most likely due to hypotension Qualifiers: Qualified Code(s): R41.82 - Altered mental status, unspecified (3) Anemia due to chemotherapy Current visit: Yes Status: Acute This is quite significant and will require replacement transfusions currently occurring in the ER (4) Chemotherapy-induced thrombocytopenia Current visit: Yes Status: Acute This requires platelet pack transfusion, he is having spontaneous episodic nosebleeds from time to time (5) CKD (chronic kidney disease), stage II Current visit: Yes Status: Acute (6) Metastatic primary lung cancer Current visit: Yes Status: Acute Qualifiers: Qualified Code(s): C34.90 - Malignant neoplasm of unspecified part of unspecified bronchus or lung (7) Obesity Current visit: No Status: Chronic Qualifiers: Obesity type: due to excess calories Obesity severity: unspecified obesity severity Qualified Code(s): E66.09 - Other obesity due to excess calories (8) COPD (chronic obstructive pulmonary disease) Current visit: No Status: Chronic Qualifiers: COPD type: unspecified COPD Qualified Code(s): J44.9 - Chronic obstructive pulmonary disease, unspecified Internal Medicine - H&P: HPI Chief complaint: Confused, low BP Admitted From: Home History of present illness: Mr. Ricardo is a 65 year old male sent over from the cancer center due to altered mental state, as well as low blood pressure. This gentleman is being treated for metastatic adenocarcinoma of the lung. The last couple of days his blood pressures been intermittently low, his family appreciated confusion today. Overall he admits is feeling somewhat better, although his labs were considerably abnormal, with hemoglobin of bit over 5, and platelet count of around 10,000. He is currently comfortable in the ER, with stable vital signs, a daughter is present provide some information, he admits he is feeling a good deal better already. over 5, platelet count around 10,000. He does admit having some episodic nosebleeds of late. No headache. He does appreciate intermittent bouts of small blood around the stoma site in his ostomy , this is not new for him. No gross hematuria, no blood in the stool per se. Past Med Surg Social Fam HX - Past Medical History Medical history: aortic aneurysm, arthritis, cancer, CHF, COPD, hyperlipidemia, hypertension, malignancy, other Psychiatric history: no psych history - Past Surgical History Surgical History: colectomy, colostomy, other (Previous lobectomy) - Social History Smoking Status: Former smoker Smokeless Tobacco Status: No Alcohol use: none Drug use: none Current living situation: Home - Independent Activity Level: Independent ambulation - Family History Mother Adopted: No Living Status: Hx Family Cardiac Disorders: Yes (CHF) Hx Family Endocrine Disorder: Yes (DM) Father Adopted: No Family Member Ethnicity: Non- Living Status: Hx Family Cardiac Disorders: Yes (CHF) Hx Family Respiratory Disorders: Yes (COPD) Hx Family Cancer: No Hx Family GI Disorders: No Hx Family Endocrine Disorder: Yes (DM) Hx Family Neuromuscular Disorders: No Hx Family Neurologic Disorders: No Hx Family HEENT Disorders: No Hx Family Autoimmune Disorders: No Internal Medicine - H&P: Meds Alprazolam [Xanax] 0.5 mg PO HS PRN 10/01/14 [History] Escitalopram Oxalate [Lexapro] 10 mg PO DAILY 10/01/14 [History] Furosemide [Lasix] 40 mg PO DAILY 10/01/14 [History] Spironolactone 50 mg PO DAILY 10/05/14 [History] Indomethacin 75 mg PO DAILY PRN 11/02/15 [History] Guaifenesin [Guaifenesin ER] 1,200 mg PO BID #14 tab.er.12h 03/14/16 [Rx] LORazepam [Ativan] 0.5 mg PO Q6H PRN #30 tablet 03/15/16 [Rx] Lidocaine/Prilocaine CREAM [Emla] 1 gm TP ONCE PRN #1 tube 03/15/16 [Rx] Magic Mouthwash 10 ml PO Q4H PRN #240 ml 03/15/16 [Rx] Omeprazole [PriLOSEC] 20 mg PO DAILY #30 capsule.dr 03/15/16 [Rx] Prochlorperazine Maleate [Compazine] 10 mg PO Q6HR PRN #40 tablet 03/15/16 [Rx] Folic Acid 1 mg PO DAILY #30 tablet 03/31/16 [Rx] Ondansetron [Zofran ODT] 8 mg SL Q8H PRN #60 tab.rapdis 03/31/16 [Rx] Albuterol Sulfate [Albuterol Inhaler] 2 puff IH Q4-6H PRN #1 inhaler 04/20/16 [ Rx] HYDROcodone/Acet 5/325 mg [Holden 5-325 mg] 1 tab PO Q6H PRN #90 tab 05/02/16 [Rx ] Morphine Sulfate 15 - 30 mg PO Q4H PRN #120 tab 05/02/16 [Rx] Crizotinib [Xalkori] 250 mg PO BID #60 capsule 05/04/16 [Rx] Fluticasone/Vilanterol [Breo Ellipta 100-25 Mcg INH] 1 puff IH DAILY #1 blst.w.dev 05/04/16 [Rx] Albuterol Neb [AccuNeb] 1.25 mg IH Q6H #30 inhsol 06/01/16 [Rx] Megestrol Acetate [Megace] 10 ml PO DAILY #300 udc 06/01/16 [Rx] Metoprolol XL (24 HR) Succ [Toprol XL] 25 mg PO DAILY 06/05/16 [History] Oxymetazoline [Afrin] 1 spray NS Q12HR PRN #1 bottle 06/05/16 [Rx] Allergies No Known Allergies Allergy (Verified 05/11/16 11:03) All Systems PM: A 10-system review of systems was performed and is negative for pertinent findings except as documented above in the HPI. - Constitutional Constitutional: fatigue, lethargy, weakness, no fever(s), no falls - EENT Eyes: blurry vision, no diplopia - Cardiovascular Cardiovascular ROS IM: lightheadedness, no chest pain, no diaphoresis, no dyspnea, no dyspnea on exertion, no edema, no syncope - Respiratory Respiratory: no cough, no dyspnea, no dyspnea on exertion - Gastrointestinal Gastrointestinal: abdominal pain (He admits having some flank pain on the left side, for the last 4 weeks, recent past CAT scan has been unremarkable.), no diarrhea, no early satiety, no heartburn, no hematemesis, no hematochezia, no melena, no nausea, no vomiting - Genitourinary Genitourinary ROS male: flank pain, no dysuria, no hematuria - Musculoskeletal Musculoskeletal ROS IM: no neck pain, no stiffness - Neurological Neurological ROS: abnormal speech, behavioral changes, confusion, restless legs - Psychiatric Psychiatric: depression - Hematologic/Lymphatic Hematologic/Lymphatic: other (Some epistaxis in the last couple days) - Constitutional Vitals: Temp Pulse Resp BP Pulse Ox 98.9 F 98 17 114/68 100 06/05/16 19:24 06/05/16 19:24 06/05/16 19:24 06/05/16 19:24 06/05/16 19:24 General appearance: Present: cooperative, disheveled, A&O X 2, no acute distress , obese. Absent: mild distress - Head Head exam: Present: atraumatic, normocephalic - Eye Eye exam: Present: EOMI, sclera anicteric. Absent: conjunctival injection - ENT ENT exam: Present: mucous membranes dry, normal oropharynx - Neck Neck exam general surgery: Present: full ROM, supple, trachea midline - Respiratory Respiratory exam: Present: wheezes (Very mild expiratory wheezes throughout, he admits this is his baseline,). Absent: tachypnea - Cardiovascular Cardiovascular exam: Present: distant heart sounds, RRR. Absent: JVD, +S3, +S4 - GI/Abdominal GI/Abdominal exam: Present: normal bowel sounds, soft, tenderness. Absent: no peritoneal signs - Extremities Exam Extremities exam: Present: full ROM, warm. Absent: calf tenderness, joint swelling, pedal edema - Neurological Exam Neurological exam: Present: alert, altered, CN II-XII intact, no focal deficits Internal Med - H&P Results - Labs CBC & Chem 7: 06/05/16 16:12 06/05/16 16:12
[2016-06-05] MEDS: Budesonide/Formoterol 80/4.5 MDI IH SCH (21:46)
[2016-06-05] MEDS: Albuterol 2.5 MG/3 ML NEBULIZER IH PRN (21:49)
[2016-06-05] MEDS: Gabapentin 400 MG CAPSULE PO SCH (21:55)
[2016-06-05] MEDS ORDERED: 0.9 % Sodium Chloride 250 ML ONE (22:31)
[2016-06-05] MEDS: *HR* HYDROcodone/Acet 5/325 mg TABLET PO PRN (23:37)
[2016-06-06 06:16] LABS: BUN/Creatinine Ratio 21 (6-26); Blood Urea Nitrogen 27 mg/dL (8-26); Calcium 8.4 mg/dL (8.6-10.8); Carbon Dioxide 21 mEq/L (19-29); Chloride 111 mEq/L (98-109); Glucose 80 mg/dL (70-99); Osmolality,Calculated 294 (280-300); Potassium 3.9 mEq/L (3.5-4.5); Sodium 140 mEq/L (136-145); eGFR For African Americans > 60 (> 60); eGFR For Non-African Americans 55 (> 60)
[2016-06-06 07:34] LABS: Hemoglobin 6.1 g/dL (12.9-16.9); Immature Granulocytes % 1.3 % (0-4); Lymphocytes % 33.6 %; Mean Corpuscular HGB Conc 33.9 g/dL (31.6-35.5); Mean Corpuscular Hemoglobin 30.7 pg (28.0-33.3); Mean Corpuscular Volume 90.5 fL (83.0-100.0); Mean Platelet Volume 11.2 fL (9.4-12.4); Monocytes # 0.3 K/mcL (0.0-1.3); Monocytes % 9.1 %; Red Blood Count 1.99 M/mcL (4.19-5.50); Red Cell Distribution Width 17.6 % (11.5-14.5)
[2016-06-06 07:43] LABS: Neutrophils # 1.7 K/mcL (1.6-8.9)
[2016-06-06 07:45] LABS: Platelet Count 13 K/mcL (140-400)
[2016-06-06] MEDS: *HR* HYDROcodone/Acet 5/325 mg TABLET PO PRN ×2 (08:04→23:21)
[2016-06-06] MEDS: Budesonide/Formoterol 80/4.5 MDI IH SCH ×2 (08:12→20:17)
[2016-06-06] MEDS: Gabapentin 400 MG CAPSULE PO SCH (09:01)
--- NOTE | 2016-06-06 16:03 | Oncology Inp Consult Note ---
<Jemima Abernathy E - Last Filed: 06/06/16 17:22> Date of Encounter: 06/06/16 Time of Encounter: 15:30 Assessment and Plan (1) Altered mental status Problem details: Has returned to baseline. CT scan negative. Status: Acute Assessment and plan: Has returned to baseline. CT scan brain no acute intra cranial process.Likely related to severe anemia Qualifiers: Altered mental status type: unspecified Qualified Code(s): R41.82 - Altered mental status, unspecified (2) Anemia Problem details: Continue supportive care. Status: Acute Assessment and plan: Continue to transfuse to maintain HGB of 7.5-8. Stool guiac postitive- consider GI consult Continue Folic acid 1 mg daily to lessen side effects associated with Alimta. Qualifiers: Anemia type: unspecified type Qualified Code(s): D64.9 - Anemia, unspecified (3) Chemotherapy-induced thrombocytopenia Status: Acute Assessment and plan: Transfuse to maintain platelets at 30,000. (4) LUQ pain Status: Acute Assessment and plan: Ultrasound of LUQ-spleen to R/o splenomegaly. - Data of Consult Patient: known to practice within the last 3 years Consult date: 06/06/16 Requesting Physician: Kanchan Rasheed MD Primary Care Provider: Maxine Delatorre CNP - Consult Narrative Reason for consult: Lung cancer with anemia and thrombocytopenia History of present illness: Mr. Ricardo is a 65 year old male with a medical history of recurrent lung cancer, hypertension, anxiety, gout, obesity, depression, hypercholesteremia, insomnia, fatigue and assess leg syndrome. While at the cancer center receiving hydration yesterday he was noted to have a major change in mental status. He was not able to complete thoughts or sentences, he was also very week and reports having several nose bleeds in the last few days. He was transferred by EMS to the [place] emergency department. He was admitted to [facility] with altered mental status, anemia and thrombocytopenia. At time of admission his hemoglobin was 5.1, platelets 10,000. He received 2 units of packed cells with that his hemoglobin julio to 6.1. He also received 16 pack of platelets with that hemoglobin julio to 13,000. He has had an additional unit of platelets and is receiving another unit of else at this time. Him with 31 and creatinine 1.5. Most recently has been receiving chemotherapy which includes carboplatin and Alimta. To date he has received 4 cycles from 03/23/16-05/25/16. He does report that he has missed a few doses of Folic acid he is to take daily while on Alimta to decrease side effects associated with this agent. He also states he recall noting a small amount of blood in his stool a few days ago.(from colostomy). Today he is feeling much better. He is able to complete thoughts and sentences. He states he does continue to fill week. He also has pain in the left upper quadrant that he reports being a sharp stabbing pain when he takes a deep breath. This was present a few weeks ago but scans were negative. We will obtain an ultrasound of the spleen today for further evaluation. He is also having an anemia workup and stool for occult blood. I did speak with the hospitalist earlier. ONCOLOGY History In July [address]-guided biopsy of a 5 cm upper right lobe mass. This demonstrated a primary lung adenocarcinoma. PET scan showed locally advanced disease including subcarinal PET positive LAD. He received neoadjuvant chemotherapy-and etoposide with concurrent radiation per swab protocol. This was followed by right upper lobectomy by . Pathology indicated a 3.2 cm adenocarcinoma. Margins were negative. 2 of 11 lymph nodes were positive for adenocarcinoma. He did well and maintaining follow-up with Dr. Foote. In December 2015 he had an unremarkable CT of the chest that showed a stable number and size of pulmonary nodules with plan for radiographic surveillance in 6 months. In January 2016 he had a PET scan to evaluate enlarging and new nodules on the chest CT showed multiple pulmonary nodules, bilaterally larger of which demonstrated FDG uptake compatible with multifocal systemic disease. There was no metastatic disease evident in the abdomen and pelvis. In February [address]-guided biopsy that returned positive for pulmonary adenocarcinoma was positive for CK 7 and TTF-1. He did have mutational studies on his initial lung specimen from 2013 which confirmed strong expression of C- MET. Mutations evolving amantadine have shown very good response to ALK inhibitors. Most recent CT scan of 2016 showed stable, partially loculated right pleural effusion. Stable to decreased bilateral lower lobe nodules and left upper lobe pulmonary nodules. The largest was 7.3 mm in the right lower lobe which is decreased versus previous imaging. Postradiation changes were demonstrated in the right lower lobe. Otherwise stable. The only hospitalized in [facility] with pneumonia. I Past Med Surg Social Fam HX - Past Medical History Medical history: aortic aneurysm, arthritis, cancer, CHF, COPD, hyperlipidemia, hypertension, malignancy, other (Gout, obesity, restless leg syndrome) Psychiatric history: depression - Past Surgical History Surgical History: colectomy, colostomy, other (Surgery, cataract retina in 1984 , right knee medial meniscal tear, lung resection in 2013-right lung, sigmoid colectomy, colostomy, appendectomy.) - Social History Smoking Status: Former smoker Smokeless Tobacco Status: No Alcohol use: none Drug use: none Current living situation: Home Recent Out of Country Travel Within the Last 8 Weeks: No - Family History Mother Adopted: No Living Status: Hx Family Cardiac Disorders: Yes (CHF) Hx Family Endocrine Disorder: Yes (DM) Father Adopted: No Age: 75 Family Member Ethnicity: Non- Living Status: Age at : 75 Cause of : aneuryism Hx Family Cardiac Disorders: Yes (CHF) Hx Family Respiratory Disorders: Yes (COPD) Hx Family Cancer: No Hx Family GI Disorders: No Hx Family Endocrine Disorder: Yes (DM) Hx Family Neuromuscular Disorders: No Hx Family Neurologic Disorders: No Hx Family HEENT Disorders: No Hx Family Autoimmune Disorders: No Medications and Allergies Alprazolam [Xanax] 0.5 mg PO HS PRN 10/01/14 [History] Escitalopram Oxalate [Lexapro] 10 mg PO DAILY 10/01/14 [History] Furosemide [Lasix] 40 mg PO DAILY 10/01/14 [History] Spironolactone 50 mg PO DAILY 10/05/14 [History] Indomethacin 75 mg PO DAILY PRN 11/02/15 [History] Guaifenesin [Guaifenesin ER] 1,200 mg PO BID #14 tab.er.12h 03/14/16 [Rx] LORazepam [Ativan] 0.5 mg PO Q6H PRN #30 tablet 03/15/16 [Rx] Lidocaine/Prilocaine CREAM [Emla] 1 gm TP ONCE PRN #1 tube 03/15/16 [Rx] Magic Mouthwash 10 ml PO Q4H PRN #240 ml 03/15/16 [Rx] Omeprazole [PriLOSEC] 20 mg PO DAILY #30 capsule. 03/15/16 [Rx] Prochlorperazine Maleate [Compazine] 10 mg PO Q6HR PRN #40 tablet 03/15/16 [Rx] Folic Acid 1 mg PO DAILY #30 tablet 03/31/16 [Rx] Ondansetron [Zofran ODT] 8 mg SL Q8H PRN #60 tab.rapdis 03/31/16 [Rx] Albuterol Sulfate [Albuterol Inhaler] 2 puff IH Q4-6H PRN #1 inhaler 04/20/16 [ Rx] HYDROcodone/Acet 5/325 mg [Newton 5-325 mg] 1 tab PO Q6H PRN #90 tab 05/02/16 [Rx ] Morphine Sulfate 15 - 30 mg PO Q4H PRN #120 tab 05/02/16 [Rx] Crizotinib [Xalkori] 250 mg PO BID #60 capsule 05/04/16 [Rx] Fluticasone/Vilanterol [Breo Ellipta 100-25 Mcg INH] 1 puff IH DAILY #1 blst.w.dev 05/04/16 [Rx] Albuterol Neb [AccuNeb] 1.25 mg IH Q6H #30 inhsol 06/01/16 [Rx] Megestrol Acetate [Megace] 10 ml PO DAILY #300 udc 06/01/16 [Rx] Metoprolol XL (24 HR) Succ [Toprol XL] 25 mg PO DAILY 06/05/16 [History] Oxymetazoline [Afrin] 1 spray NS Q12HR PRN #1 bottle 06/05/16 [Rx] Allergies No Known Allergies Allergy (Verified 05/11/16 11:03) All systems: reviewed and no additional remarkable complaints except as stated Constitutional: Present: fatigue, weakness Eyes: Present: as per HPI Nose, mouth and throat: Present: as per HPI Cardiovascular: Present: as per HPI Respiratory: Present: dyspnea, dyspnea on exertion Gastrointestinal: Present: abdominal pain (Left upper quadrant pain which increases with deep inspiration), melena Musculoskeletal: Present: muscle weakness Additional comments: He is much more alert than when I assessed him yesterday, he also is able to speak clearly, complete sentences and it is time person and place Oncology - Exam - Constitutional Vitals: Temp Pulse Resp BP Pulse Ox 97.9 F 90 14 113/70 98 06/06/16 14:43 06/06/16 14:43 06/06/16 14:43 06/06/16 14:43 06/06/16 14:43 General appearance: cooperative, morbidly obese, no acute distress - Head Head exam: Present: normal inspection - ENT ENT exam: Present: mucous membranes moist - Respiratory Respiratory exam: Present: decreased breath sounds (all lung rowell), CTAB - Cardiovascular Cardiovascular exam: Present: RRR - GI/Abdominal GI/Abdominal exam: Present: soft, tenderness (LUQ) Additional comments: obese, colostomy in place. - Extremities Exam Extremities exam: Present: normal inspection - Back Exam Back exam: Present: normal inspection - Neurological Exam Neurological exam: Present: alert, oriented X3 - Psychiatric Psychiatric exam: Present: normal affect, normal mood Oncology - Results - Labs Labs: Short CBC 06/06/16 Range/Units 07:02 WBC 3.0 L (4.3-11.1) K/mcL Hgb 6.1 L (12.9-16.9) g/dL Hct 18.0 L (37.5-50.1) % Plt Count 13 L* (140-400) K/mcL Neutrophils # 1.7 (1.6-8.9) K/mcL BMP 06/06/16 05:13 Sodium 140 Potassium 3.9 Chloride 111 H Carbon Dioxide 21 BUN 27 H Creatinine 1.31 H Glucose 80 Calcium 8.4 L Consult Discharge Plan - Plan Referrals: Maxine Delatorre CNP [Primary Care Provider] - <Higinio King - Last Filed: 06/07/16 08:21> Date of Encounter: 06/06/16 - Data of Consult Patient: known to practice within the last 3 years Requesting Physician: Vic Marion MD Primary Care Provider: Maxine Delatorre CNP - Consult Narrative History of present illness: Mr. Ricardo is a 65 year old male Oncology - Exam - Constitutional Vitals: Temp Pulse Resp BP Pulse Ox 98.6 F 94 16 120/77 92 06/07/16 04:31 06/07/16 05:29 06/07/16 05:29 06/07/16 04:31 06/07/16 05:29 Oncology - Results - Labs Labs: Short CBC 06/06/16 06/07/16 Range/Units 18:30 06:30 WBC 2.0 L 1.6 L (4.3-11.1) K/mcL Hgb 6.2 L 7.4 L (12.9-16.9) g/dL Hct 18.4 L 21.9 L (37.5-50.1) % Plt Count 18 L* 17 L* (140-400) K/mcL Neutrophils # 1.4 L 1.0 L (1.6-8.9) K/mcL BMP 06/07/16 06:30 Sodium 140 Potassium 4.0 Chloride 109 Carbon Dioxide 23 BUN 18 Creatinine 1.21 Glucose 92 Calcium 8.4 L - Attending Attestation I saw and personally examined Dasha at his bedside today and reviewed the chart for details of ongoing care by hospital team. I verified/agree with the history and physical exam findings documented by Nkechi Abernathy [employer] CHIEF above. Darien is known to our practice from ongoing management of his advanced lung cancer. He is on palliative systemic therapy for his lung cancer recurrence following resection and adjuvant chemoradiation. He most recently received carboplatin with Alimta on 05/25/16 with Neulasta support. That was his fourth cycle of chemotherapy. He is currently hospitalized for acute pancytopenia which may be related to myelosuppression from recent chemotherapy. He also had some encephalopathy which may be related to severe anemia with Hb of 5.1. He is being managed supportively by the hospital team and appears to be metastatic, incremental improvement. His cultures have returned negative. Abdominal ultrasound to evaluate left upper quadrant abdominal pain actually shows reduced spleen size. No obvious examination for his pain symptoms. His feeling considerably better at time of evaluation. Sensorium has cleared up. He is maintaining stable blood pressure and other hemodynamics (he was hypotensive on initial presentation to the cancer center). For his pancytopenia, he has been receiving transfusion support and counseling program. Recommend to continue transfusion to maintain hemoglobin of 7 or greater and platelet count of 30,000 or greater. There is a concern about ongoing bleeding. If no consent about bleeding, platelet count of 10,000 we'll be adequate we'll expect his bone marrow to recover in the coming days. I am not sure of his profound anemia is fully explained by myelosuppression from his recent chemo although this sounds reasonable given the time course. Stool guaiac is being planned by the hospitalist and which I think is very reasonable. Ultimately I think a GI consult is reasonable to exclude the possibility of an underlying bleeding problem since profound anemia may indicate bleeding and thrombocytopenia may be on a can of clinic consumption due to bleeding. As for his lung cancer, this appears to be under fairly good control with current management. He has had considerable difficulty tolerating chemotherapy and after 4 cycles, I discussed with the patient and I will likely stop chemotherapy and switch his regimens. He has a positive mutation for MET which has been associated with response to Crizotinib. Once he is medically optimal, we'll consider starting him on Crizotinib which is an oral therapy that I expected a much more tolerable for him. Today, his report nonacute exhibition of his underlying gallops based on painful swelling in his left knee joint and is unable to ambulate on it, that. I have ordered your serum uric acid level for confirmation and we will go ahead and give him a course of colchicine for acute gout control. Once he is medically optimal and gases control, I encouraged him to try to ambulate as much as possible to reduce his risk for VTE. We will follow them alongside you during this hospital admission and be available to unsigned about oncologic questions that may arise. Here at he had a scheduled outpatient follow-up appointment with me and will keep that appointment at this unless new issues warrant earlier follow-up.
[2016-06-06] MEDS: Pantoprazole 40 MG VIAL IVP SCH (17:43)
--- NOTE | 2016-06-06 17:45 | Electrocardiograph Report ---
[address] [place] [address] Test Date: 2016-06-05 Pat Name: Darien Ricardo Department: 103 Room: 2N14 Gender: M Fingerprint Clerk: DEACON : 1950 Requested By: Kang Cheng Order Number: [id number] Reading MD: Angel Israel Measurements Intervals [place] Rate: 100 P: 24 [place]: 169 QRS: 10 QRSD: 113 T: 52 QT: 337 QTc: 394 Interpretive Statements SINUS TACHYCARDIA LOW QRS VOLTAGE POSSIBLE ANTERIOR MYOCARDIAL INFARCTION, OF INDETERMINATE AGE Electronically Signed On 06-06-2016 17:43:15 EDT by Angel Israel
[2016-06-06] MEDS: Folic Acid 1 MG TABLET PO SCH (18:26)
--- NOTE | 2016-06-06 18:38 | Internal Med Progress Note ---
Date of Encounter: 06/06/16 Time of Encounter: 10:00 - Assessment and plan (1) Acute encephalopathy Current Visit: Yes Status: Acute Assessment and plan: Improved. Mental status is getting back to baseline. Possibly due to severe anemia. Continue closely monitoring (2) Hypertension Current Visit: No Status: Chronic Assessment and plan: BP is not high. Not on hypertension medication for 3 weeks per patient. Qualifiers: Hypertension type: essential hypertension Qualified Code(s): I10 - Essential (primary) hypertension (3) Adenocarcinoma of lung Current Visit: No Status: Chronic Assessment and plan: On chemotherapy. Oncology consult was called. Qualifiers: Laterality: right Qualified Code(s): C34.91 - Malignant neoplasm of unspecified part of right bronchus or lung (4) Anemia Current Visit: Yes Status: Acute Assessment and plan: Etiology is undetermined. Possibly due to GI blood loss versus chemotherapy- induced anemia. Guaiac positive. - We will check anemia workup. - We will give patient transfusion and closely follow up hemoglobin change. - Place patient on IV PPI. Correct the thrombocytopenia with platelet transfusion. GI consultation. - Oncology consult Qualifiers: Anemia type: unspecified type Qualified Code(s): D64.9 - Anemia, unspecified (5) Chemotherapy-induced thrombocytopenia Current Visit: Yes Status: Acute Assessment and plan: Will give patient platelet transfusion, follow up platelet level. Oncology consult appreciated. (6) DVT prophylaxis Current Visit: Yes Status: Acute Assessment and plan: EPCD. No anticoagulation because of low hemoglobin and low platelet. - Time Spent With Patient 25 - 35 minutes - Subjective Interval history: Patient is a 65-year-old male admitted for altered mental status and severe anemia. His past medical history is significant for stage IV lung cancer on chemotherapy, hypertension, hyperlipidemia. Patient was seen and examined. His mental status has improved and back to baseline. Still severe anemia even after transfusion. Guaiac test positive. We will place patient on IV PPI. GI consult. Oncology saw patient and the recommendation appreciated. - Constitutional Vitals: Temp Pulse Resp BP Pulse Ox 98.0 F 93 14 128/75 100 06/06/16 17:33 06/06/16 17:33 06/06/16 17:33 06/06/16 17:33 06/06/16 17:33 General appearance: Present: cooperative, A&O X 3, no acute distress, obese - Head Head exam: Present: atraumatic, normocephalic - Eye Eye exam: Present: PERRL, conjuntiva pink, sclera anicteric Pupils: Present: PERRL - Neck Neck exam general surgery: Present: supple, trachea midline. Absent: lymphadenopathy - Respiratory Respiratory exam: Present: CTAB. Absent: accessory muscle use, rales, rhonchi, wheezes - Cardiovascular Cardiovascular exam: Present: RRR, +S1, +S2. Absent: diastolic murmur, gallop, rubs, systolic murmur - GI/Abdominal GI/Abdominal exam: Present: normal bowel sounds, soft, no peritoneal signs. Absent: distended, tenderness - Extremities Exam Extremities exam: Present: warm, radial pulses palpable and symetrical. Absent : calf tenderness, cyanotic, pedal edema - Neurological Exam Neurological exam: Present: CN II-XII intact, oriented X3, no focal deficits. Absent: pronater drift, facial droop, speech deficit - Skin Skin exam: Present: dry, intact Internal Medicine: Result - Labs CBC & Chem 7: 06/06/16 07:02 06/06/16 05:13 Labs: Short CBC 06/06/16 Range/Units 07:02 WBC 3.0 L (4.3-11.1) K/mcL Hgb 6.1 L (12.9-16.9) g/dL Hct 18.0 L (37.5-50.1) % Plt Count 13 L* (140-400) K/mcL Neutrophils # 1.7 (1.6-8.9) K/mcL BMP 06/06/16 05:13 Sodium 140 Potassium 3.9 Chloride 111 H Carbon Dioxide 21 BUN 27 H Creatinine 1.31 H Glucose 80 Calcium 8.4 L Consult Discharge Plan - Plan Referrals: Maxine Delatorre, INSULATION BLANKET MAKER [Primary Care Provider] -
[2016-06-06 18:43] LABS: Hemoglobin 6.2 g/dL (12.9-16.9)
[2016-06-06 18:44] LABS: Eosinophils # 0.1 K/mcL (0.0-0.6); Eosinophils % 2.5 %; Hematocrit 18.4 % (37.5-50.1); Lymphocytes # 0.4 K/mcL (0.6-4.6); Lymphocytes % 20.3 %; Mean Corpuscular HGB Conc 33.7 g/dL (31.6-35.5); Mean Corpuscular Hemoglobin 30.5 pg (28.0-33.3); Mean Corpuscular Volume 90.6 fL (83.0-100.0); Mean Platelet Volume 9.7 fL (9.4-12.4); Monocytes # 0.2 K/mcL (0.0-1.3); Monocytes % 8.9 %; Neutrophils # 1.4 K/mcL (1.6-8.9); Red Blood Count 2.03 M/mcL (4.19-5.50); Red Cell Distribution Width 16.5 % (11.5-14.5); Segmented Neutrophils % 67.3 %
[2016-06-06 18:51] LABS: Platelet Count 18 K/mcL (140-400)
[2016-06-06 18:55] LABS: Platelet Estimate Marked Decrease (Normal)
[2016-06-06] MEDS ORDERED: ALPRAZolam 0.5 MG TABLET PO PRN (19:35)
[2016-06-06] MEDS: Albuterol 2.5 MG/3 ML NEBULIZER IH PRN (20:16)
[2016-06-06] MEDS ORDERED: 0.9 % Sodium Chloride 250 ML ONE (21:24)
[2016-06-06] MEDS: *HR* Morphine Immed Rel 30 MG TABLET PO PRN (21:39)
[2016-06-07] MEDS ORDERED: 0.9 % Sodium Chloride 250 ML ONE (00:34)
[2016-06-07] MEDS: *HR* Morphine Immed Rel 30 MG TABLET PO PRN ×2 (06:29→11:16)
[2016-06-07] MEDS: Pantoprazole 40 MG VIAL IVP SCH ×2 (06:30→17:51)
[2016-06-07 07:01] LABS: BUN/Creatinine Ratio 15 (6-26); Blood Urea Nitrogen 18 mg/dL (8-26); Calcium 8.4 mg/dL (8.6-10.8); Carbon Dioxide 23 mEq/L (19-29); Chloride 109 mEq/L (98-109); Glucose 92 mg/dL (70-99); Osmolality,Calculated 292 (280-300); Sodium 140 mEq/L (136-145); eGFR For African Americans > 60 (> 60); eGFR For Non-African Americans > 60 (> 60)
[2016-06-07 07:14] LABS: Hematocrit 21.9 % (37.5-50.1); Hemoglobin 7.4 g/dL (12.9-16.9); Immature Granulocytes % 0.6 % (0-4); Mean Corpuscular HGB Conc 33.8 g/dL (31.6-35.5)
[2016-06-07 07:19] LABS: Eosinophils % 2.4 %; Lymphocytes # 0.4 K/mcL (0.6-4.6); Lymphocytes % 22.6 %; Mean Corpuscular Hemoglobin 30.1 pg (28.0-33.3); Mean Platelet Volume 10.3 fL (9.4-12.4); Monocytes # 0.2 K/mcL (0.0-1.3); Monocytes % 12.8 %; Red Blood Count 2.46 M/mcL (4.19-5.50); Red Cell Distribution Width 16.1 % (11.5-14.5); Segmented Neutrophils % 61.6 %
[2016-06-07 07:23] LABS: Platelet Count 17 K/mcL (140-400)
[2016-06-07 07:36] LABS: Ferritin 635 ng/ml (22-275)
[2016-06-07] MEDS: Budesonide/Formoterol 80/4.5 MDI IH SCH ×2 (07:49→19:45)
[2016-06-07 07:54] LABS: Platelet Estimate Marked Decrease (Normal)
--- NOTE | 2016-06-07 08:04 | Gastroenterology Consult Note ---
<Tiarra Shaw - Last Filed: 06/07/16 13:44> Date of Encounter: 06/07/16 Time of Encounter: 10:40 - Assessment and plan (1) Hematochezia Current Visit: Yes Status: Acute Assessment and plan: Likely contributed to profound thrombocytopenia. Hx of prior diverticulitis w/ abscess s/p resection. Patient platelets remain too low for invasive procedures. With further questioning, believe this was blood from around the stoma versus in the actual stool. (2) Adenocarcinoma of lung Current Visit: No Status: Chronic Assessment and plan: follows w/oncology Qualifiers: Laterality: right Qualified Code(s): C34.91 - Malignant neoplasm of unspecified part of right bronchus or lung (3) Thrombocytopenia Current Visit: No Status: Acute Assessment and plan: Chemo induced. Spleen normal in US imaging. (4) Anemia Current Visit: Yes Status: Acute Assessment and plan: Secondary to chemotherapy. Patient has required blood transfusion prior to this admission. He admits hx of recent epistaxis as well. Monitor and transfuse as appropriate. When stable - OTPT procedures. Qualifiers: Anemia type: unspecified type Qualified Code(s): D64.9 - Anemia, unspecified - Time Spent With Patient Total time spent is greater than 50% in coordination of care (as documented) at patient's floor/unit and/or counseling patient: less than 15 minutes GI History of Present Illness - Data of Consult Patient: new to practice Consult date: 06/07/16 Requesting Physician: Vic Marion MD - Consult Narrative Reason for consult: Anemia, positive hemocult History of present illness: Mr. Ricardo is a 65 year old male with a PMH of recurrent lung cancer - currently on chemotherapy - , HTN, anxiety, gout, obesity, depression, hypercholesteremia , insomnia, fatigue and restless leg syndrome. He has a history of prior diverticulitis with abscess necessitating a sigmoid resection with colostomy. While at the cancer center receiving hydration 06/05/16, he was noted to have a major change in mental status. He was not able to complete thoughts or sentences, he was also very weak and reports having several nose bleeds in the last few days. He was transferred by EMS to the [place] emergency department. He was admitted to [facility] with altered mental status, anemia and thrombocytopenia. At time of admission his hemoglobin was 5.1, platelets 10,000. He has received 5 units of PRBC, his hgb is 7.4 today. His platelets were extremely low, in the teens, and remain there (17 today) despite receiving a 2 packs of platelets. Most recently has been receiving chemotherapy which includes carboplatin and Alimta. To date he has received 4 cycles from -05/25/16. He does report that he has missed a few doses of Folic acid he is to take daily while on Alimta to decrease side effects associated with this agent. He also states he recall noting a small amount of blood in his stool a few days ago.(from colostomy). Patient was sitting up in bed and appeared in no visible distress at the time of my exam. He has never had endoscopy. Confirms 3 week hx of epistaxis, some blood around stoma noted, however, no black stools admitted. He states emptying his colostomy is 'variable'. He does admit some LLQ abdominal discomfort intermittently. Colonoscopy: None noted EGD: None noted Past Med Surg Social Fam HX - Past Medical History Medical history: aortic aneurysm, arthritis, cancer, CHF, COPD, hyperlipidemia, hypertension, malignancy, other (Gout, obesity, restless leg syndrome) Psychiatric history: depression - Past Surgical History Surgical History: colectomy, colostomy, other (Surgery, cataract retina in 1984 , right knee medial meniscal tear, lung resection in 2013-right lung, sigmoid colectomy, colostomy, appendectomy.) - Social History Smoking Status: Former smoker Smokeless Tobacco Status: No Alcohol use: none Drug use: none - Family History Mother Adopted: No Living Status: Hx Family Cardiac Disorders: Yes (CHF) Hx Family Endocrine Disorder: Yes (DM) Father Adopted: No Age: 75 Family Member Ethnicity: Non- Living Status: Age at : 75 Cause of : aneuryism Hx Family Cardiac Disorders: Yes (CHF) Hx Family Respiratory Disorders: Yes (COPD) Hx Family Cancer: No Hx Family GI Disorders: No Hx Family Endocrine Disorder: Yes (DM) Hx Family Neuromuscular Disorders: No Hx Family Neurologic Disorders: No Hx Family HEENT Disorders: No Hx Family Autoimmune Disorders: No - Gastrointestinal NSAID use: None noted Anticoagulation Use: None noted Number of BM Per Day: variable Gastrointestinal: Present: abdominal pain - Constitutional Constitutional: fatigue - EENT Eyes: as per HPI Ears: Present: as per HPI Nose, mouth and throat: Present: as per HPI - Cardiovascular Cardiovascular ROS: Present: as per HPI - Respiratory Respiratory IM: Present: as per HPI - Neurological ROS Neurological GI: Present: confusion, weakness - Hematologic/Lymphatic Hematologic/Lymphatic pediatric: Present: easy bleeding - Musculoskeletal Musculoskeletal ROS GI: Present: as per HPI - Integumentary Integumentary GI: Present: as per HPI - Psychiatric ROS Psychiatric GI: Present: as per HPI - Endocrine Endocrine IM: Present: as per HPI - Constitutional Vitals: Temp Pulse Resp BP Pulse Ox 98.6 F 94 16 120/77 92 06/07/16 04:31 06/07/16 05:29 06/07/16 05:29 06/07/16 04:31 06/07/16 05:29 General appearance: Present: cooperative, A&O X 3, no acute distress, answers questions appropriately - Head Head exam: Present: atraumatic, normocephalic - Eye Eye exam: Present: normal appearance, sclera anicteric - ENT ENT exam: Present: mucous membranes moist - Neck Neck exam general surgery: Present: normal inspection, trachea midline - Respiratory Respiratory exam: Present: CTAB - Cardiovascular Cardiovascular exam: Present: RRR, +S1, +S2 - GI/Abdominal GI/Abdominal exam: Present: distended, hernia, soft, no peritoneal signs Additional comments: large well-healed surgical scar, LLQ colostomy in place, no stool noted. - Rectal Rectal exam: Present: deferred - Extremities Exam Extremities exam: Present: pedal edema - Neurological Exam Neurological exam: Present: alert, no focal deficits - Psychiatric Psychiatric exam: Present: normal affect, normal mood - Skin Skin exam: Present: dry, intact, normal color, warm Results - Labs CBC & Chem 7: 06/07/16 06:30 06/07/16 06:30 Labs: Last Result Calcium 8.4 mg/dL (8.6-10.8) L 06/07/16 06:30 Ferritin 635 ng/ml (22-275) H 06/07/16 06:30 Troponin I 0.00 ng/mL (0-0.03) 06/05/16 16:12 Stool Occult Blood Positive (Negative) A 06/06/16 14:50 Entire Visit Hgb 7.4 g/dL (12.9-16.9) L 06/07/16 06:30 Hct 21.9 % (37.5-50.1) L 06/07/16 06:30 Ferritin 635 ng/ml (22-275) H 06/07/16 06:30 Total Bilirubin 1.9 mg/dL (0.2-1.2) H 06/05/16 16:12 AST 16 Units/L (5-34) 06/05/16 16:12 ALT 21 Units/L (0-55) 06/05/16 16:12 Ammonia 19 mcmol/L (18-72) 06/05/16 16:12 - Impressions Impressions Abdomen Ultrasound 06/06/16 18:58 IMPRESSION: Normal spleen D/ / Michele Panchal MD / Michele Panchal MD Interpreting Provider: Michele Panchal MD Consult Discharge Plan - Plan Referrals: Maxine Delatorre, PRINTING SALES REPRESENTATIVE [Primary Care Provider] - <Juan Pablo Mcdermott - Last Filed: 06/07/16 21:00> Date of Encounter: 06/07/16 Time of Encounter: 15:00 - Time Spent With Patient Total time spent is greater than 50% in coordination of care (as documented) at patient's floor/unit and/or counseling patient: GI History of Present Illness - Data of Consult Requesting Physician: Vic Marion MD - Consult Narrative History of present illness: Mr. Ricardo is a 65 year old male - Constitutional Vitals: Temp Pulse Resp BP Pulse Ox 99.5 F 113 14 113/74 100 06/07/16 16:00 06/07/16 16:06 06/07/16 19:45 06/07/16 16:00 06/07/16 19:45 Results - Labs CBC & Chem 7: 06/07/16 15:27 06/07/16 06:30 Labs: Last Result Calcium 8.4 mg/dL (8.6-10.8) L 06/07/16 06:30 Iron 48 mcg/dL (65-175) L 06/07/16 06:30 % Saturation 20 % (20-55) 06/07/16 06:30 Transferrin 175 mg/dL (174-364) 06/07/16 06:30 Ferritin 635 ng/ml (22-275) H 06/07/16 06:30 Troponin I 0.00 ng/mL (0-0.03) 06/05/16 16:12 Vitamin B12 1230 pg/mL (213-816) H 06/07/16 06:30 Folate 13.3 ng/mL (7.0-31.4) 06/07/16 06:30 Stool Occult Blood Positive (Negative) A 06/06/16 14:50 Entire Visit Hgb 8.3 g/dL (12.9-16.9) L 06/07/16 15:27 Hct 24.4 % (37.5-50.1) L 06/07/16 15:27 Ferritin 635 ng/ml (22-275) H 06/07/16 06:30 Total Bilirubin 1.9 mg/dL (0.2-1.2) H 06/05/16 16:12 AST 16 Units/L (5-34) 06/05/16 16:12 ALT 21 Units/L (0-55) 06/05/16 16:12 Ammonia 19 mcmol/L (18-72) 06/05/16 16:12 Folate 13.3 ng/mL (7.0-31.4) 06/07/16 06:30 - Impressions Impressions Abdomen Ultrasound 06/06/16 18:58 IMPRESSION: Normal spleen D/ / Michele Panchal MD / Michele Panchal MD Interpreting Provider: Michele Panchal MD - Attending Attestation I examined this patient and my medical decision-making was reviewed with the CONTENT CURATOR/PA/Advanced Practice Nurse/Resident Physician. I agree with the documented findings, disposition and treatment plan as described except to the extent set forth below.
[2016-06-07] MEDS ORDERED: Colchicine 0.6 MG TABLET PO ONE (08:13)
[2016-06-07] MEDS: Megestrol Acetate 400 MG/10 ML UDC PO SCH (08:35)
[2016-06-07] MEDS: Colchicine 0.6 MG TABLET PO SCH (08:35)
[2016-06-07] MEDS: Folic Acid 1 MG TABLET PO SCH (08:35)
[2016-06-07] MEDS: *HR* HYDROcodone/Acet 5/325 mg TABLET PO PRN (08:35)
[2016-06-07] MEDS ORDERED: Pantoprazole 40 MG VIAL IVP SCH (09:00)
[2016-06-07 11:30] LABS: Uric Acid 7.8 mg/dL (3.5-7.2)
[2016-06-07 12:36] LABS: Folate 13.3 ng/mL (7.0-31.4)
--- NOTE | 2016-06-07 12:55 | Internal Med Progress Note ---
Date of Encounter: 06/07/16 Time of Encounter: 10:00 - Assessment and plan (1) Acute encephalopathy Current Visit: Yes Status: Acute Assessment and plan: Improved. Mental status is getting back to baseline. Possibly due to severe anemia. Continue closely monitoring (2) Hypertension Current Visit: No Status: Chronic Assessment and plan: BP is not high. Not on hypertension medication for 3 weeks per patient. Qualifiers: Hypertension type: essential hypertension Qualified Code(s): I10 - Essential (primary) hypertension (3) Adenocarcinoma of lung Current Visit: No Status: Chronic Assessment and plan: Oncology consult saw pt and input appreciated Qualifiers: Laterality: right Qualified Code(s): C34.91 - Malignant neoplasm of unspecified part of right bronchus or lung (4) Anemia Current Visit: Yes Status: Acute Assessment and plan: Etiology is undetermined. Possibly due to GI blood loss versus chemotherapy- induced anemia. Guaiac positive. - We will check anemia workup. - We will give patient transfusion and closely follow up hemoglobin change. - Place patient on IV PPI. Correct the thrombocytopenia with platelet transfusion. GI consultation. - Oncology consult Qualifiers: Anemia type: unspecified type Qualified Code(s): D64.9 - Anemia, unspecified (5) Chemotherapy-induced thrombocytopenia Current Visit: Yes Status: Acute Assessment and plan: Will give patient platelet transfusion, follow up platelet level. Oncology consult appreciated. (6) DVT prophylaxis Current Visit: Yes Status: Acute Assessment and plan: EPCD. No anticoagulation because of low hemoglobin and low platelet. - Time Spent With Patient 25 - 35 minutes - Subjective Interval history: Patient is a 65-year-old male admitted for altered mental status and severe anemia. His past medical history is significant for stage IV lung cancer on chemotherapy, hypertension, hyperlipidemia. Patient was seen and examined. His mental status has improved and keep at the baseline. Anemia improved after transfusion, Hgb 7.4. GI consult saw pt. Oncology on case. Vitals stable, will check Hgb in pm and see if it maintains at over 7. - Constitutional Vitals: Temp Pulse Resp BP Pulse Ox 99.3 F 105 12 119/74 100 06/07/16 11:19 06/07/16 11:19 06/07/16 11:19 06/07/16 11:19 06/07/16 11:19 General appearance: Present: cooperative, A&O X 3, no acute distress, obese - Head Head exam: Present: atraumatic, normocephalic - Eye Eye exam: Present: PERRL, conjuntiva pink, sclera anicteric Pupils: Present: PERRL - Neck Neck exam general surgery: Present: supple, trachea midline. Absent: lymphadenopathy - Respiratory Respiratory exam: Present: CTAB. Absent: accessory muscle use, rales, rhonchi, wheezes - Cardiovascular Cardiovascular exam: Present: RRR, +S1, +S2. Absent: diastolic murmur, gallop, rubs, systolic murmur - GI/Abdominal GI/Abdominal exam: Present: normal bowel sounds, soft, no peritoneal signs. Absent: distended, tenderness - Extremities Exam Extremities exam: Present: warm, radial pulses palpable and symetrical. Absent : calf tenderness, cyanotic, pedal edema - Neurological Exam Neurological exam: Present: CN II-XII intact, oriented X3, no focal deficits. Absent: pronater drift, facial droop, speech deficit - Skin Skin exam: Present: dry, intact Internal Medicine: Result - Labs CBC & Chem 7: 06/07/16 06:30 06/07/16 06:30 Labs: Short CBC 06/06/16 06/07/16 Range/Units 18:30 06:30 WBC 2.0 L 1.6 L (4.3-11.1) K/mcL Hgb 6.2 L 7.4 L (12.9-16.9) g/dL Hct 18.4 L 21.9 L (37.5-50.1) % Plt Count 18 L* 17 L* (140-400) K/mcL Neutrophils # 1.4 L 1.0 L (1.6-8.9) K/mcL BMP 06/07/16 06:30 Sodium 140 Potassium 4.0 Chloride 109 Carbon Dioxide 23 BUN 18 Creatinine 1.21 Glucose 92 Calcium 8.4 L - Impressions Impressions Abdomen Ultrasound 06/06/16 18:58 IMPRESSION: Normal spleen D/ / Michele Panchal MD / Michele Panchal MD Interpreting Provider: Michele Panchla MD - VTE Documentation of Mechanical Device: Intermittent pneumatic compression device Consult Discharge Plan - Plan Referrals: Maxine Delatorre, GLASS FRAME FITTER [Primary Care Provider] -
[2016-06-07] MEDS ORDERED: NON-FORMULARY MEDICATION 1 EACH EACH PO PRN (15:31)
[2016-06-07] MEDS ORDERED: *HR* HYDROmorphone 2 MG/ML SYRINGE IVP PRN (15:33)
[2016-06-07 15:38] LABS: Eosinophils % 1.6 %; Hematocrit 24.4 % (37.5-50.1); Hemoglobin 8.3 g/dL (12.9-16.9); Immature Granulocytes % 0.5 % (0-4); Lymphocytes # 0.5 K/mcL (0.6-4.6); Lymphocytes % 27.1 %; Mean Corpuscular Volume 88.1 fL (83.0-100.0); Mean Platelet Volume 10.9 fL (9.4-12.4); Monocytes # 0.3 K/mcL (0.0-1.3); Monocytes % 14.6 %; Neutrophils # 1.1 K/mcL (1.6-8.9); Red Blood Count 2.77 M/mcL (4.19-5.50); Red Cell Distribution Width 15.9 % (11.5-14.5); Segmented Neutrophils % 56.2 %
[2016-06-07 15:41] LABS: Platelet Count 18 K/mcL (140-400)
[2016-06-07 16:04] LABS: Platelet Estimate Marked Decrease (Normal)
[2016-06-07 17:19] LABS: % Iron Saturation 20 % (20-55); Iron 48 mcg/dL (65-175); Transferrin 175 mg/dL (174-364)
[2016-06-07] MEDS: Albuterol 2.5 MG/3 ML NEBULIZER IH PRN (19:45)
[2016-06-08 06:41] LABS: Red Cell Distribution Width 15.8 % (11.5-14.5)
[2016-06-08 06:43] LABS: Hematocrit 21.8 % (37.5-50.1); Hemoglobin 7.4 g/dL (12.9-16.9); Immature Granulocytes % 0.8 % (0-4); Lymphocytes # 0.4 K/mcL (0.6-4.6); Lymphocytes % 27.3 %; Mean Corpuscular HGB Conc 33.9 g/dL (31.6-35.5); Mean Corpuscular Hemoglobin 30.5 pg (28.0-33.3); Mean Corpuscular Volume 89.7 fL (83.0-100.0); Mean Platelet Volume 11.5 fL (9.4-12.4); Monocytes # 0.3 K/mcL (0.0-1.3); Monocytes % 23.5 %; Neutrophils # 0.6 K/mcL (1.6-8.9); Red Blood Count 2.43 M/mcL (4.19-5.50); Segmented Neutrophils % 45.4 %
[2016-06-08 06:52] LABS: BUN/Creatinine Ratio 13 (6-26); Blood Urea Nitrogen 17 mg/dL (8-26); Calcium 8.6 mg/dL (8.6-10.8); Carbon Dioxide 24 mEq/L (19-29); Chloride 108 mEq/L (98-109); Glucose 88 mg/dL (70-99); Magnesium 1.1 mg/dL (1.6-2.6); Osmolality,Calculated 291 (280-300); Potassium 3.8 mEq/L (3.5-4.5); Sodium 140 mEq/L (136-145); eGFR For African Americans > 60 (> 60); eGFR For Non-African Americans 55 (> 60)
[2016-06-08] MEDS: Albuterol 2.5 MG/3 ML NEBULIZER IH PRN ×2 (07:38→20:16)
[2016-06-08] MEDS: Budesonide/Formoterol 80/4.5 MDI IH SCH ×2 (07:38→20:16)
[2016-06-08 07:39] LABS: Platelet Count 17 K/mcL (140-400)
[2016-06-08 07:41] LABS: Anisocytosis 1+ (Not Present); Platelet Estimate Marked Decrease (Normal)
[2016-06-08] MEDS: Megestrol Acetate 400 MG/10 ML UDC PO SCH (08:53)
[2016-06-08] MEDS: Folic Acid 1 MG TABLET PO SCH (08:54)
[2016-06-08] MEDS: Colchicine 0.6 MG TABLET PO SCH (08:54)
[2016-06-08] MEDS: Pantoprazole 40 MG VIAL IVP SCH ×2 (08:54→17:11)
[2016-06-08] MEDS: *HR* Morphine Immed Rel 30 MG TABLET PO PRN ×2 (08:59→21:02)
--- NOTE | 2016-06-08 13:29 | Neurology - Consult Note ---
<Boston Wilde - Last Filed: 06/08/16 15:00> Date of Encounter: 06/08/16 Time of Encounter: 13:29 Assessment and Plan (1) Altered mental status Current Visit: Yes Status: Acute Currently his mental status is back to his baseline, A and Ox3, answers questions appropriately, follows commands. First change in mental status was noticed by a nurse at [facility] 3 days ago and subsequently patient was found to have a severe anemia of 5.1, during this hospitalization patient received a total of 5 units of PRBC and patient's hemoglobin increased to above 7.5, CT scan of head showed no acute process, during this hospital stay, patient 's mental status was once back to baseline however the nurse noticed change in his mental status again last night therefore neurology service was consulted. With his history of primary lung cancer, we should obtain brain MRI at this time to rule out brain metastasis but low in differential diagnosis, likely his change in mental status was secondary to severe symptomatic anemia on top of possible delirium for change in normal environment such as in a hospital setting. We will make further recommendation after reviewing the brain MRI. Qualifiers: Altered mental status type: unspecified Qualified Code(s): R41.82 - Altered mental status, unspecified History of Present Illness Chief complaint: Change in mental status HPI: Mr. Ricardo is a 65 year old male with a history of primary lung adenocarcinoma, hypertension, gout, depression, and hyperlipidemia who was sent from [facility] to the ER for change in mental status. Patient was receiving IV hydration 3 days ago at the Center and the nurse noticed that he was not able to complete his thoughts or sentence, also patient was very weak and he was having several nosebleed episodes in the last 3 days. In the ER he was found to have a hemoglobin of 5.1 and platelet counts of 10,000, during this hospitalization patient received total of 5 units PRBC transfusion and 2 units of platelet transfusion, GI service was consulted for possibility of acute blood loss anemia and positive stool guaiac test, however patient's platelets remain to low for the invasive procedure at this time however he does have a prior history of diverticulitis with abscess status post resection. Initially patient's change in mental status was thought to be secondary to severe anemia, and his mental status was once back to his baseline during this hospital stay however last night patient had another episode of change in mental status noticed by a nurse therefore neurology service was consulted today for further recommendation. Past Med Surg Social Fam HX - Past Medical History Medical history: aortic aneurysm, arthritis, cancer, CHF, COPD, hyperlipidemia, hypertension, malignancy, other (Gout, obesity, restless leg syndrome) Psychiatric history: depression - Past Surgical History Surgical History: colectomy, colostomy, other (Surgery, cataract retina in 1984 , right knee medial meniscal tear, lung resection in 2013-right lung, sigmoid colectomy, colostomy, appendectomy.) - Social History Smoking Status: Former smoker Smokeless Tobacco Status: No Alcohol use: none Drug use: none - Family History Mother Adopted: No Living Status: Hx Family Cardiac Disorders: Yes (CHF) Hx Family Endocrine Disorder: Yes (DM) Father Adopted: No Age: 75 Family Member Ethnicity: Non- Living Status: Age at : 75 Cause of : aneuryism Hx Family Cardiac Disorders: Yes (CHF) Hx Family Respiratory Disorders: Yes (COPD) Hx Family Cancer: No Hx Family GI Disorders: No Hx Family Endocrine Disorder: Yes (DM) Hx Family Neuromuscular Disorders: No Hx Family Neurologic Disorders: No Hx Family HEENT Disorders: No Hx Family Autoimmune Disorders: No Medications and Allergies Alprazolam [Xanax] 0.5 mg PO HS PRN 10/01/14 [History] Escitalopram Oxalate [Lexapro] 10 mg PO DAILY 10/01/14 [History] Furosemide [Lasix] 40 mg PO DAILY 10/01/14 [History] Spironolactone 50 mg PO DAILY 10/05/14 [History] Indomethacin 75 mg PO DAILY PRN 11/02/15 [History] Guaifenesin [Guaifenesin ER] 1,200 mg PO BID #14 tab.er.12h 03/14/16 [Rx] LORazepam [Ativan] 0.5 mg PO Q6H PRN #30 tablet 03/15/16 [Rx] Lidocaine/Prilocaine CREAM [Emla] 1 gm TP ONCE PRN #1 tube 03/15/16 [Rx] Magic Mouthwash 10 ml PO Q4H PRN #240 ml 03/15/16 [Rx] Omeprazole [PriLOSEC] 20 mg PO DAILY #30 capsule.dr 03/15/16 [Rx] Prochlorperazine Maleate [Compazine] 10 mg PO Q6HR PRN #40 tablet 03/15/16 [Rx] Folic Acid 1 mg PO DAILY #30 tablet 03/31/16 [Rx] Ondansetron [Zofran ODT] 8 mg SL Q8H PRN #60 tab.rapdis 03/31/16 [Rx] Albuterol Sulfate [Albuterol Inhaler] 2 puff IH Q4-6H PRN #1 inhaler 04/20/16 [ Rx] HYDROcodone/Acet 5/325 mg [[place] 5-325 mg] 1 tab PO Q6H PRN #90 tab 05/02/16 [Rx ] Morphine Sulfate 15 - 30 mg PO Q4H PRN #120 tab 05/02/16 [Rx] Crizotinib [Xalkori] 250 mg PO BID #60 capsule 05/04/16 [Rx] Fluticasone/Vilanterol [Breo Ellipta 100-25 Mcg INH] 1 puff IH DAILY #1 blst.w.dev 05/04/16 [Rx] Albuterol Neb [AccuNeb] 1.25 mg IH Q6H #30 inhsol 06/01/16 [Rx] Megestrol Acetate [Megace] 10 ml PO DAILY #300 udc 06/01/16 [Rx] Metoprolol XL (24 HR) Succ [Toprol XL] 25 mg PO DAILY 06/05/16 [History] Oxymetazoline [Afrin] 1 spray NS Q12HR PRN #1 bottle 06/05/16 [Rx] Allergies No Known Allergies Allergy (Verified 05/11/16 11:03) All Systems: A 10-system review of systems was performed and is negative for pertinent findings except as documented above in the HPI. Physical Examination - Vital Signs Vital Signs: Initial Vital Signs Temp Pulse Resp BP Pulse Ox 99.6 F 102 18 111/69 93 06/05/16 15:39 06/05/16 15:39 06/05/16 15:39 06/05/16 15:39 06/05/16 15:39 - Constitutional General appearance: comfortable - Neurologic Sensorimotor examination: intact Detailed motor examination: grossly full strength in all extremities, full strength in all major muscle groups Motor examination - right side: 5/5: deltoids, biceps, triceps, wrist flexion, wrist extension, foot and ankle surgeon, hip flexors, quadriceps, plantarflexion Motor examination - left side: 5/5: deltoids, biceps, triceps, wrist flexion, wrist extension, hip flexors, foot and ankle surgeon, quadriceps, plantarflexion Detailed sensory examination: intact Reflex and gait examination: intact Reflexes: Biceps: 2+, Triceps: 2+, Brachioradialis: 2+, Patella: 2+, Achilles: 2 + Mental Status Examination: awake, alert, oriented to person, oriented to place, oriented to time, follows commands appropriately, answers questions appropriately, no agnosia, no aphasia, no aproxia Cranial nerve examination: PERRL, EOMI, sensory to face intact, mastication intact, no facial asymmetry is present, hearing is intact symmetrically, tongue protrudes midline, no atrophy or facial fasiculations present Cerebellar examination: no dysmetria, no difficulty with rapid alternating movements Results - Laboratory Findings CBC and BMP: 06/08/16 06:20 06/08/16 06:20 Abnormal lab findings: Abnormal lab results WBC 1.3 K/mcL (4.3-11.1) L 06/08/16 06:20 RBC 2.43 M/mcL (4.19-5.50) L 06/08/16 06:20 Hgb 7.4 g/dL (12.9-16.9) L 06/08/16 06:20 Hct 21.8 % (37.5-50.1) L 06/08/16 06:20 RDW 15.8 % (11.5-14.5) H 06/08/16 06:20 Plt Count 17 K/mcL (140-400) L* 06/08/16 06:20 Neutrophils # 0.6 K/mcL (1.6-8.9) L 06/08/16 06:20 Lymphocytes # 0.4 K/mcL (0.6-4.6) L 06/08/16 06:20 Platelet Estimate Marked Decrease (Normal) L 06/08/16 06:20 Hypochromasia Present (Not Present) A 06/05/16 16:12 Anisocytosis 1+ (Not Present) A 06/08/16 06:20 Creatinine 1.32 mg/dL (0.72-1.25) H 06/08/16 06:20 Est GFR (Non-Af Amer) 55 (> 60) L 04/13/17 06:20 POC Glucose 95 (58-89) H 06/05/16 21:05 Uric Acid 7.8 mg/dL (3.5-7.2) H 06/07/16 06:30 Magnesium 1.1 mg/dL (1.6-2.6) L 06/08/16 06:20 Iron 48 mcg/dL (65-175) L 06/07/16 06:30 Ferritin 635 ng/ml (22-275) H 06/07/16 06:30 Total Bilirubin 1.9 mg/dL (0.2-1.2) H 06/05/16 16:12 B-Natriuretic Peptide 131 pg/mL (0-100) H 06/05/16 16:12 Albumin 3.1 g/dL (3.5-5.0) L 06/05/16 16:12 Vitamin B12 1230 pg/mL (213-816) H 06/07/16 06:30 Stool Occult Blood Positive (Negative) A 06/06/16 14:50 Consult Discharge Plan - Plan Referrals: Maxine Delatorre, JOSELO [Primary Care Provider] - <Peter Marti - Last Filed: 06/08/16 17:05> Date of Encounter: 06/08/16 Time of Encounter: 16:56 Assessment and Plan (1) Altered mental status Current Visit: Yes Status: Acute MRI scan of the brain does not reveal an obvious explanation for the waxing and waning levels of consciousness here. Generally in this scenario with a mild subacute processes such as infectious, metabolic, horticulture professor, paraneoplastic. I would like to complete a workup that we generally perform in this type of patient. I will check ALT, AST, lactate, EEG. Would recommend ruling out sepsis. See no evidence of a primarily central nervous system disorder. Qualifiers: Altered mental status type: unspecified Qualified Code(s): R41.82 - Altered mental status, unspecified History of Present Illness HPI: The patient was seen and examined independently. Case was discussed with Dr. Wilde, I agree with his history as stated above. All Systems: A 10-system review of systems was performed and is negative for pertinent findings except as documented above in the HPI. Review of Systems: Review of systems is consistent with history of present illness otherwise negative Physical Examination - Vital Signs Vital Signs: Initial Vital Signs Temp Pulse Resp BP Pulse Ox 99.6 F 102 18 111/69 93 06/05/16 15:39 06/05/16 15:39 06/05/16 15:39 06/05/16 15:39 06/05/16 15:39 - Neurologic Reflexes: Biceps: 1+, Triceps: 1+, Brachioradialis: 1+, Patella: 1+, Achilles: 1 + Results - Laboratory Findings CBC and BMP: 06/08/16 06:20 06/08/16 06:20 Abnormal lab findings: Abnormal lab results WBC 1.3 K/mcL (4.3-11.1) L 06/08/16 06:20 RBC 2.43 M/mcL (4.19-5.50) L 06/08/16 06:20 Hgb 7.4 g/dL (12.9-16.9) L 06/08/16 06:20 Hct 21.8 % (37.5-50.1) L 06/08/16 06:20 RDW 15.8 % (11.5-14.5) H 06/08/16 06:20 Plt Count 17 K/mcL (140-400) L* 06/08/16 06:20 Neutrophils # 0.6 K/mcL (1.6-8.9) L 06/08/16 06:20 Lymphocytes # 0.4 K/mcL (0.6-4.6) L 06/08/16 06:20 Platelet Estimate Marked Decrease (Normal) L 06/08/16 06:20 Hypochromasia Present (Not Present) A 06/05/16 16:12 Anisocytosis 1+ (Not Present) A 06/08/16 06:20 Creatinine 1.32 mg/dL (0.72-1.25) H 06/08/16 06:20 Est GFR (Non-Af Amer) 55 (> 60) L 06/08/16 06:20 POC Glucose 95 (58-89) H 06/05/16 21:05 Uric Acid 7.8 mg/dL (3.5-7.2) H 06/07/16 06:30 Magnesium 1.1 mg/dL (1.6-2.6) L 06/08/16 06:20 Iron 48 mcg/dL (65-175) L 06/07/16 06:30 Ferritin 635 ng/ml (22-275) H 06/07/16 06:30 Total Bilirubin 1.9 mg/dL (0.2-1.2) H 06/05/16 16:12 B-Natriuretic Peptide 131 pg/mL (0-100) H 06/05/16 16:12 Albumin 3.1 g/dL (3.5-5.0) L 06/05/16 16:12 Vitamin B12 1230 pg/mL (213-816) H 06/07/16 06:30 Stool Occult Blood Positive (Negative) A 06/06/16 14:50
[2016-06-08] MEDS ORDERED: Magnesium Sulfate 2 GM in D5% in Water 100 ML IVPB ONE (15:00)
--- NOTE | 2016-06-08 18:55 | Internal Med Progress Note ---
Date of Encounter: 06/08/16 Time of Encounter: 11:00 - Assessment and plan (1) Acute encephalopathy Current Visit: Yes Status: Acute Assessment and plan: Improved but had another episode yesterday. Etiology undetermined, neurology consult called. (2) Hypertension Current Visit: No Status: Chronic Assessment and plan: BP is not high. Not on hypertension medication for 3 weeks per patient. Qualifiers: Hypertension type: essential hypertension Qualified Code(s): I10 - Essential (primary) hypertension (3) Adenocarcinoma of lung Current Visit: No Status: Chronic Assessment and plan: Oncology consult saw pt and input appreciated Qualifiers: Laterality: right Qualified Code(s): C34.91 - Malignant neoplasm of unspecified part of right bronchus or lung (4) Anemia Current Visit: Yes Status: Acute Assessment and plan: Etiology is undetermined. Possibly due to GI blood loss versus chemotherapy- induced anemia. Guaiac positive. - We will check anemia workup. - We will give patient transfusion and closely follow up hemoglobin change. - GI consult appreciated. Less likely GI bleeding, no further procedure balance the benefit and risk.. - Oncology consult Qualifiers: Anemia type: unspecified type Qualified Code(s): D64.9 - Anemia, unspecified (5) Chemotherapy-induced thrombocytopenia Current Visit: Yes Status: Acute Assessment and plan: Will give patient platelet transfusion, follow up platelet level. Oncology consult appreciated. (6) DVT prophylaxis Current Visit: Yes Status: Acute Assessment and plan: EPCD. No anticoagulation because of low hemoglobin and low platelet. - Time Spent With Patient 25 - 35 minutes - Subjective Interval history: Patient is a 65-year-old male admitted for altered mental status and severe anemia. His past medical history is significant for stage IV lung cancer on chemotherapy, hypertension, hyperlipidemia. Patient was seen and examined. Pt had another episode of confusion last night. Etiology seems cannot explained by anemia since Hgb has improved. MRI brain ordered to r/o brain metastasis, results shows no evidence of metastasis. Neurology consult called and input appreciated. - Constitutional Vitals: Temp Pulse Resp BP Pulse Ox 99.2 F 108 18 97/52 93 06/08/16 16:48 06/08/16 16:48 06/08/16 16:48 06/08/16 16:48 06/08/16 16:48 General appearance: Present: cooperative, A&O X 3, no acute distress, obese - Head Head exam: Present: atraumatic, normocephalic - Eye Eye exam: Present: PERRL, conjuntiva pink, sclera anicteric Pupils: Present: PERRL - Neck Neck exam general surgery: Present: supple, trachea midline. Absent: lymphadenopathy - Respiratory Respiratory exam: Present: CTAB. Absent: accessory muscle use, rales, rhonchi, wheezes - Cardiovascular Cardiovascular exam: Present: RRR, +S1, +S2. Absent: diastolic murmur, gallop, rubs, systolic murmur - GI/Abdominal GI/Abdominal exam: Present: normal bowel sounds, soft, no peritoneal signs. Absent: distended, tenderness - Extremities Exam Extremities exam: Present: warm, radial pulses palpable and symetrical. Absent : calf tenderness, cyanotic, pedal edema - Neurological Exam Neurological exam: Present: CN II-XII intact, oriented X3, no focal deficits. Absent: pronater drift, facial droop, speech deficit - Skin Skin exam: Present: dry, intact Internal Medicine: Result - Labs CBC & Chem 7: 06/08/16 06:20 06/08/16 06:20 Labs: Short CBC 06/08/16 Range/Units 06:20 WBC 1.3 L (4.3-11.1) K/mcL Hgb 7.4 L (12.9-16.9) g/dL Hct 21.8 L (37.5-50.1) % Plt Count 17 L* (140-400) K/mcL Neutrophils # 0.6 L (1.6-8.9) K/mcL BMP 06/08/16 06:20 Sodium 140 Potassium 3.8 Chloride 108 Carbon Dioxide 24 BUN 17 Creatinine 1.32 H Glucose 88 Calcium 8.6 - Impressions Impressions Brain MRI 06/08/16 11:37 IMPRESSION: No evidence of intracranial metastatic disease. No evidence of acute ischemic insult, acute intracranial hemorrhage, or mass lesion. Moderate, left greater than right mastoid air cell disease. Left middle ear effusion. D/ / Martin Schrader MD / Martin Schrader MD Interpreting Provider: Martin Schrader MD - VTE Documentation of Mechanical Device: Intermittent pneumatic compression device Consult Discharge Plan - Plan Referrals: Maxine Delatorre, JOSELO [Primary Care Provider] -
[2016-06-09] MEDS: *HR* HYDROcodone/Acet 5/325 mg TABLET PO PRN (04:50)
[2016-06-09 04:57] LABS: Red Cell Distribution Width 15.9 % (11.5-14.5)
[2016-06-09 04:58] LABS: Eosinophils # 0.1 K/mcL (0.0-0.6); Eosinophils % 3.8 %; Hemoglobin 6.8 g/dL (12.9-16.9); Immature Granulocytes % 0.8 % (0-4); Lymphocytes # 0.4 K/mcL (0.6-4.6); Lymphocytes % 31.8 %; Mean Corpuscular Hemoglobin 30.8 pg (28.0-33.3); Mean Corpuscular Volume 90.5 fL (83.0-100.0); Mean Platelet Volume 12.4 fL (9.4-12.4); Monocytes # 0.3 K/mcL (0.0-1.3); Monocytes % 24.2 %; Neutrophils # 0.5 K/mcL (1.6-8.9); Red Blood Count 2.21 M/mcL (4.19-5.50); Segmented Neutrophils % 39.4 %
[2016-06-09 05:08] LABS: Alanine Aminotransferase 12 Units/L (0-55); Aspartate Amino Transferase 10 Units/L (5-34); BUN/Creatinine Ratio 11 (6-26); Blood Urea Nitrogen 15 mg/dL (8-26); Calcium 8.5 mg/dL (8.6-10.8); Carbon Dioxide 24 mEq/L (19-29); Chloride 109 mEq/L (98-109); Glucose 86 mg/dL (70-99); Osmolality,Calculated 292 (280-300); Potassium 3.5 mEq/L (3.5-4.5); Sodium 141 mEq/L (136-145); eGFR For African Americans > 60 (> 60); eGFR For Non-African Americans 55 (> 60)
[2016-06-09 05:15] LABS: Platelet Count 22 K/mcL (140-400)
[2016-06-09 05:29] LABS: Anisocytosis 1+ (Not Present); Platelet Estimate Marked Decrease (Normal); Poikilocytosis 1+ (Not Present); Thyroid Stimulating Hormone 3.511 mcIU/mL (0.350-4.840)
[2016-06-09] MEDS: Megestrol Acetate 400 MG/10 ML UDC PO SCH (07:59)
[2016-06-09] MEDS: Colchicine 0.6 MG TABLET PO SCH (08:00)
[2016-06-09] MEDS: Folic Acid 1 MG TABLET PO SCH (08:00)
[2016-06-09] MEDS: Budesonide/Formoterol 80/4.5 MDI IH SCH ×2 (08:19→19:50)
--- NOTE | 2016-06-09 11:05 | Neurology Progress Note ---
<Boston Wilde - Last Filed: 06/09/16 11:17> Date of Encounter: 06/09/16 Time of Encounter: 11:05 Assessment and Plan (1) Altered mental status Current Visit: Yes Status: Acute Brain MRI showed no acute process, lactic acid/AST/ALT levels were normal, EEG is pending, patient states that he had a fever of 102 Fahrenheit in the ER and 100.2 low-grade fever overnight, usually he is hypertensive and takes blood pressure medications but he has been hypotensive during this hospital stay, occasional tachycardia and tachypnea, leukopenia with neutrophil count trending down, today 0.5, technically he meets SIRS criteria, no more confusion/change in mental status episode since yesterday however for his low immunity status and implanted port from ongoing chemotherapy treatment, will recommend sepsis workup such as checking UA/blood cultures, clinically he does not look infected , however he does have diarrhea/dark tea-colored urine since this hospital admission, will make further recommendations after reviewing the EEG. Qualifiers: Altered mental status type: unspecified Qualified Code(s): R41.82 - Altered mental status, unspecified Subjective Principal diagnosis: Change in mental status Interval history: Patient seen and examined. Patient states that no confusion/change in mental status episode yesterday and this morning, patient denies productive cough, chill, shortness of breath, dysuria or burning urination but he admits diarrhea since he was admitted to this hospital and dark tea-colored urine. Objective - Constitutional Vitals: Temp Pulse Resp BP Pulse Ox 98.6 F 88 16 117/78 96 06/09/16 07:51 06/09/16 10:00 06/09/16 08:21 06/09/16 10:00 06/09/16 08:21 General appearance: Present: cooperative, A&O X 3, pleasant, no acute distress, obese, answers questions appropriately - Head Head exam: Present: atraumatic, normal inspection, normocephalic - Eye Eye exam: Present: EOMI, normal appearance, PERRL - Extremities Exam Extremities exam: Present: full ROM, normal capillary refill, normal inspection , warm, radial pulses palpable and symetrical. Absent: calf tenderness, cyanotic, joint swelling, pedal edema - Neurological Exam Sensorimotor examination: Present: intact. Absent: hemiparesis, hemineglect, rigidity Motor Examination: Present: grossly full strength in all extremities, full strength in all major muscle groups Motor examination - right side: 5: deltoids, biceps, triceps, wrist flexion, wrist extension, protozoology teacher, hip flexors, quadriceps, plantarflexion Motor examination - left side: 5: deltoids, biceps, triceps, wrist flexion, wrist extension, hip flexors, protozoology teacher, quadriceps, plantarflexion Sensation intact: Present: intact Reflex and gait examination: intact Reflexes: Biceps: 2+, Triceps: 2+, Brachioradialis: 2+, Patella: 2+, Achilles: 2 + Mental Status Examination: Present: awake, alert, oriented to person, oriented to place, oriented to time, follows commands appropriately, answers questions appropriately, no agnosia, no aphasia, no aproxia Cranial nerve examination: Present: PERRL, EOMI, sensory to face intact, mastication intact, no facial asymmetry is present, hearing is intact symmetrically, tongue protrudes midline, no atrophy or facial fasiculations present Cerebellar examination: Present: no dysmetria, no truncal ataxia, no difficulty with rapid alternating movements - VTE Documentation of Mechanical Device: Intermittent pneumatic compression device Results - Laboratory Findings CBC and BMP: 06/09/16 04:25 06/09/16 04:25 Abnormal lab findings: Abnormal lab results WBC 1.3 K/mcL (4.3-11.1) L 06/09/16 04:25 RBC 2.21 M/mcL (4.19-5.50) L 06/09/16 04:25 Hgb 6.8 g/dL (12.9-16.9) L 06/09/16 04:25 Hct 20.0 % (37.5-50.1) L 06/09/16 04:25 RDW 15.9 % (11.5-14.5) H 06/09/16 04:25 Plt Count 22 K/mcL (140-400) L* 06/09/16 04:25 Neutrophils # 0.5 K/mcL (1.6-8.9) L 06/09/16 04:25 Lymphocytes # 0.4 K/mcL (0.6-4.6) L 06/09/16 04:25 Platelet Estimate Marked Decrease (Normal) L 06/09/16 04:25 Hypochromasia Present (Not Present) A 06/05/16 16:12 Poikilocytosis 1+ (Not Present) A 06/09/16 04:25 Anisocytosis 1+ (Not Present) A 06/09/16 04:25 Creatinine 1.31 mg/dL (0.72-1.25) H 06/09/16 04:25 Est GFR (Non-Af Amer) 55 (> 60) L 06/09/16 04:25 POC Glucose 95 (58-89) H 06/05/16 21:05 Uric Acid 7.8 mg/dL (3.5-7.2) H 06/07/16 06:30 Calcium 8.5 mg/dL (8.6-10.8) L 06/09/16 04:25 Magnesium 1.0 mg/dL (1.6-2.6) L 06/09/16 04:25 Iron 48 mcg/dL (65-175) L 06/07/16 06:30 Ferritin 635 ng/ml (22-275) H 06/07/16 06:30 Total Bilirubin 1.9 mg/dL (0.2-1.2) H 06/05/16 16:12 Ammonia 15 mcmol/L (18-72) L 06/09/16 04:25 B-Natriuretic Peptide 131 pg/mL (0-100) H 06/05/16 16:12 Albumin 3.1 g/dL (3.5-5.0) L 06/05/16 16:12 Vitamin B12 1230 pg/mL (213-816) H 06/07/16 06:30 Stool Occult Blood Positive (Negative) A 06/06/16 14:50 Consult Discharge Plan - Plan Referrals: Maxine Delatorre CNP [Primary Care Provider] - 06/13/16 10:40 am <Peter Marti - Last Filed: 06/09/16 15:26> Date of Encounter: 06/09/16 Time of Encounter: 15:22 Assessment and Plan (1) Altered mental status Current Visit: Yes Status: Acute Case was discussed with Dr. Wilde, I agree with his assessment. No evidence to support a primary central nervous system etiology for questions confusion. Suspect an underlying metabolic or perhaps infectious etiology to explain this. We will reevaluate your request. Qualifiers: Altered mental status type: unspecified Qualified Code(s): R41.82 - Altered mental status, unspecified Subjective Interval history: Short view, the patient was seen and examined independently. I agree with the resident's statement above. Patient has had no further episodes of confusion. I did read his EEG which shows no signs of seizure activity. He did however reveal mild slowing and was poorly organized. Objective - Constitutional Vitals: Temp Pulse Resp BP Pulse Ox 98.5 F 88 16 114/60 96 06/09/16 13:57 06/09/16 13:57 06/09/16 13:57 06/09/16 13:57 06/09/16 13:57 - Neurological Exam Sensorimotor examination: Present: intact Motor Examination: Present: grossly full strength in all extremities Sensation intact: Present: intact Mental Status Examination: Present: awake, alert, oriented to person, oriented to place, oriented to time, follows commands appropriately, answers questions appropriately, no agnosia, no aphasia, no aproxia Results - Laboratory Findings CBC and BMP: 06/09/16 04:25 06/09/16 04:25 Abnormal lab findings: Abnormal lab results WBC 1.3 K/mcL (4.3-11.1) L 06/09/16 04:25 RBC 2.21 M/mcL (4.19-5.50) L 06/09/16 04:25 Hgb 6.8 g/dL (12.9-16.9) L 06/09/16 04:25 Hct 20.0 % (37.5-50.1) L 06/09/16 04:25 RDW 15.9 % (11.5-14.5) H 06/09/16 04:25 Plt Count 22 K/mcL (140-400) L* 06/09/16 04:25 Neutrophils # 0.5 K/mcL (1.6-8.9) L 06/09/16 04:25 Lymphocytes # 0.4 K/mcL (0.6-4.6) L 06/09/16 04:25 Platelet Estimate Marked Decrease (Normal) L 06/09/16 04:25 Hypochromasia Present (Not Present) A 06/05/16 16:12 Poikilocytosis 1+ (Not Present) A 06/09/16 04:25 Anisocytosis 1+ (Not Present) A 06/09/16 04:25 Creatinine 1.31 mg/dL (0.72-1.25) H 06/09/16 04:25 Est GFR (Non-Af Amer) 55 (> 60) L 06/09/16 04:25 POC Glucose 95 (58-89) H 06/05/16 21:05 Uric Acid 7.8 mg/dL (3.5-7.2) H 06/07/16 06:30 Calcium 8.5 mg/dL (8.6-10.8) L 06/09/16 04:25 Magnesium 1.0 mg/dL (1.6-2.6) L 06/09/16 04:25 Iron 48 mcg/dL (65-175) L 06/07/16 06:30 Ferritin 635 ng/ml (22-275) H 06/07/16 06:30 Total Bilirubin 1.9 mg/dL (0.2-1.2) H 06/05/16 16:12 Ammonia 15 mcmol/L (18-72) L 06/09/16 04:25 B-Natriuretic Peptide 131 pg/mL (0-100) H 06/05/16 16:12 Albumin 3.1 g/dL (3.5-5.0) L 06/05/16 16:12 Vitamin B12 1230 pg/mL (213-816) H 06/07/16 06:30 Urine Microscopic RBC 3-5 per hpf (0-3) H 06/09/16 12:00 Ur Squamous Epith Cells Many per lpf (None-Few) H 06/09/16 12:00 Stool Occult Blood Positive (Negative) A 06/06/16 14:50
[2016-06-09 12:15] LABS: Bilirubin,Urine Negative (Negative); Blood,Urine Negative (Negative); Clarity,Urine Clear (Clear); Color,Urine Yellow (Yellow); Glucose,Urine (UA) Normal (Normal); Ketones,Urine Negative (Negative); Leukocyte Esterase,Urine Negative (Negative); Nitrite,Urine Negative (Negative); Protein,Urine Trace mg/dL (Neg-Trace); Specific Gravity,Urine 1.012 (1.010-1.025); Urobilinogen,Urine Normal (Normal)
[2016-06-09 12:16] LABS: Bacteria,Urine None Seen per hpf (None-Few); Hyaline Casts,Urine None Seen per lpf (None-Few); Squamous Epithelial Cell,Urine Many per lpf (None-Few); WBC,Urine 0-3 per hpf (0-3)
[2016-06-09] MEDS ORDERED: 0.9 % Sodium Chloride 500 ML ONE (13:33)
--- NOTE | 2016-06-09 14:15 | EEG/EMG/Oth Biometrics Report ---
EEG Procedure Report Date of procedure: 06/09/16 EEG Procedure: Routine EEG Procedure Note: This is a report of a 21 channel bipolar and referential montage. A posterior dominant rhythm of 7-1/2-8 Hz moderate voltage alpha frequency is identified symmetrically and the posterior head. However, this rhythm is poorly organized and poorly sustained. Hyperventilation is not performed. Periods of drowsiness and stage II sleep are identified as referenced by dropout of posterior dominant rhythm, and the emergence of vertex activity, K complexes, and sleep spindles. Photic stimulation is performed and does not produce a driving response. EKG rhythm strip reveals normal sinus rhythm at 90 beats per minute. Impressions: This EEG recording is mildly abnormal. This consisted of mild generalized encephalopathy. There is no evidence of epileptiform activity identified. Comment: Etiologies to explain this interpretation might include toxic, metabolic, postictal, degenerative. Please correlate clinically. The documentation in the history of HPI and plan were at least partially created by [employer] voice recognition technology by Dr. Marti. Errors in grammar, wording or other phrases may exist. If errors are found after the documentation signed, they will be addressed individually in the addendum section of this document when appropriate.
[2016-06-09] MEDS: Magnesium Sulfate 2 GM in D5% in Water 100 ML IVPB PRN (16:49)
[2016-06-09] MEDS: *HR* Morphine Immed Rel 30 MG TABLET PO PRN ×2 (16:57→21:14)
--- NOTE | 2016-06-09 17:44 | Internal Med Progress Note ---
Date of Encounter: 06/09/16 Time of Encounter: 10:00 - Assessment and plan (1) Acute encephalopathy Current Visit: Yes Status: Acute Assessment and plan: Etiology undetermined, neurology consult consult appreciated. - MRI negative for metastasis. - EEG done today. - Blood cx and UA to r/o infection (especially port infection). (2) Hypertension Current Visit: No Status: Chronic Assessment and plan: BP is not high. Not on hypertension medication for 3 weeks per patient. Qualifiers: Hypertension type: essential hypertension Qualified Code(s): I10 - Essential (primary) hypertension (3) Adenocarcinoma of lung Current Visit: No Status: Chronic Assessment and plan: Oncology consult saw pt and input appreciated Qualifiers: Laterality: right Qualified Code(s): C34.91 - Malignant neoplasm of unspecified part of right bronchus or lung (4) Anemia Current Visit: Yes Status: Acute Assessment and plan: Etiology is undetermined. Possibly due to GI blood loss versus chemotherapy- induced anemia. Guaiac positive. - We will check anemia workup. - We will give patient transfusion and closely follow up hemoglobin change. - GI consult appreciated. Less likely GI bleeding, no further procedure balancing the benefit and risk.. - Oncology consult - Cont monitor H/H and transfusion as needed. Qualifiers: Anemia type: unspecified type Qualified Code(s): D64.9 - Anemia, unspecified (5) Chemotherapy-induced thrombocytopenia Current Visit: Yes Status: Acute Assessment and plan: Will give patient platelet transfusion, follow up platelet level. Oncology consult appreciated. (6) DVT prophylaxis Current Visit: Yes Status: Acute Assessment and plan: EPCD. No anticoagulation because of low hemoglobin and low platelet. - Time Spent With Patient 25 - 35 minutes - Subjective Interval history: Patient is a 65-year-old male admitted for altered mental status and severe anemia. His past medical history is significant for stage IV lung cancer on chemotherapy, hypertension, hyperlipidemia. Patient was seen and examined. Pt had no further confusion over last 24 hours. hemoglobin dropped to 6.8. we will give another 2 units of PRBC. Pt had the EEG today. patient had one episode of fever last night, pt has an infusion port , we will check blood culture and the urine analysis to rule out infection. - Constitutional Vitals: Temp Pulse Resp BP Pulse Ox 98.7 F 88 17 119/62 95 06/09/16 16:43 06/09/16 17:00 04/14/17 16:43 06/09/16 16:43 06/09/16 16:43 General appearance: Present: cooperative, A&O X 3, no acute distress, obese - Head Head exam: Present: atraumatic, normocephalic - Eye Eye exam: Present: PERRL, conjuntiva pink, sclera anicteric Pupils: Present: PERRL - Neck Neck exam general surgery: Present: supple, trachea midline. Absent: lymphadenopathy - Respiratory Respiratory exam: Present: CTAB. Absent: accessory muscle use, rales, rhonchi, wheezes - Cardiovascular Cardiovascular exam: Present: RRR, +S1, +S2. Absent: diastolic murmur, gallop, rubs, systolic murmur - GI/Abdominal GI/Abdominal exam: Present: normal bowel sounds, soft, no peritoneal signs. Absent: distended, tenderness - Extremities Exam Extremities exam: Present: warm, radial pulses palpable and symetrical. Absent : calf tenderness, cyanotic, pedal edema - Neurological Exam Neurological exam: Present: CN II-XII intact, oriented X3, no focal deficits. Absent: pronater drift, facial droop, speech deficit - Skin Skin exam: Present: dry, intact Internal Medicine: Result - Labs CBC & Chem 7: 06/09/16 04:25 06/09/16 04:25 Labs: Short CBC 06/09/16 Range/Units 04:25 WBC 1.3 L (4.3-11.1) K/mcL Hgb 6.8 L (12.9-16.9) g/dL Hct 20.0 L (37.5-50.1) % Plt Count 22 L* (140-400) K/mcL Neutrophils # 0.5 L (1.6-8.9) K/mcL BMP 06/09/16 04:25 Sodium 141 Potassium 3.5 Chloride 109 Carbon Dioxide 24 BUN 15 Creatinine 1.31 H Glucose 86 Calcium 8.5 L Liver Function 06/09/16 Range/Units 04:25 AST 10 (5-34) Units/L ALT 12 (0-55) Units/L Urine 06/09/16 Range/Units 12:00 Urine Color Yellow (Yellow) Urine Clarity Clear (Clear) Urine pH 6.0 (5.0-8.0) pH Units Ur Specific [place] 1.012 (1.010-1.025) Urine Protein Trace (Neg-Trace) mg/dL Urine Glucose (UA) Normal (Normal) mg/dL - VTE Documentation of Mechanical Device: Intermittent pneumatic compression device Consult Discharge Plan - Plan Referrals: Maxine Delatorre CNP [Primary Care Provider] - 06/13/16 10:40 am
[2016-06-09] MEDS: Albuterol 2.5 MG/3 ML NEBULIZER IH PRN (19:51)
[2016-06-09 21:27] LABS: Hemoglobin 7.6 g/dL (12.9-16.9)
[2016-06-09 21:29] LABS: Eosinophils # 0.1 K/mcL (0.0-0.6); Eosinophils % 3.3 %; Hematocrit 22.6 % (37.5-50.1); Immature Granulocytes % 0.5 % (0-4); Lymphocytes # 0.6 K/mcL (0.6-4.6); Lymphocytes % 31.5 %; Mean Corpuscular HGB Conc 33.6 g/dL (31.6-35.5); Mean Corpuscular Hemoglobin 30.3 pg (28.0-33.3); Monocytes # 0.4 K/mcL (0.0-1.3); Monocytes % 22.3 %; Neutrophils # 0.8 K/mcL (1.6-8.9); Red Blood Count 2.51 M/mcL (4.19-5.50); Red Cell Distribution Width 15.5 % (11.5-14.5); Segmented Neutrophils % 42.4 %
[2016-06-09 21:34] LABS: Platelet Count 35 K/mcL (140-400)
[2016-06-09 21:38] LABS: BUN/Creatinine Ratio 11 (6-26); Blood Urea Nitrogen 14 mg/dL (8-26); Calcium 8.4 mg/dL (8.6-10.8); Carbon Dioxide 26 mEq/L (19-29); Chloride 109 mEq/L (98-109); Glucose 89 mg/dL (70-99); Osmolality,Calculated 294 (280-300); Potassium 3.4 mEq/L (3.5-4.5); Sodium 142 mEq/L (136-145); eGFR For African Americans > 60 (> 60); eGFR For Non-African Americans 56 (> 60)
[2016-06-09] MEDS ORDERED: 0.9 % Sodium Chloride 250 ML ONE (21:42)
[2016-06-09 22:02] LABS: Dohle Bodies Present (Not Present); Platelet Estimate Decreased (Normal); Polychromasia 1+ (Not Present)
[2016-06-10 05:06] LABS: Hemoglobin 8.2 g/dL (12.9-16.9)
[2016-06-10 05:08] LABS: Eosinophils # 0.1 K/mcL (0.0-0.6); Eosinophils % 4.2 %; Hematocrit 24.2 % (37.5-50.1); Immature Granulocytes % 1.2 % (0-4); Lymphocytes # 0.5 K/mcL (0.6-4.6); Mean Corpuscular HGB Conc 33.9 g/dL (31.6-35.5); Mean Corpuscular Hemoglobin 30.5 pg (28.0-33.3); Monocytes # 0.4 K/mcL (0.0-1.3); Monocytes % 23.8 %; Neutrophils # 0.7 K/mcL (1.6-8.9); Red Blood Count 2.69 M/mcL (4.19-5.50); Red Cell Distribution Width 15.3 % (11.5-14.5); Segmented Neutrophils % 39.8 %
[2016-06-10 05:12] LABS: Ionized Calcium 1.23 mmol/L (1.15-1.35)
[2016-06-10 05:25] LABS: BUN/Creatinine Ratio 12 (6-26); Blood Urea Nitrogen 14 mg/dL (8-26); Calcium 8.9 mg/dL (8.6-10.8); Carbon Dioxide 26 mEq/L (19-29); Chloride 110 mEq/L (98-109); Glucose 78 mg/dL (70-99); Osmolality,Calculated 295 (280-300); Phosphorous 3.9 mg/dL (2.3-4.7); Platelet Count 34 K/mcL (140-400); Platelet Estimate Decreased (Normal); Potassium 3.6 mEq/L (3.5-4.5); Sodium 143 mEq/L (136-145); eGFR For African Americans > 60 (> 60); eGFR For Non-African Americans > 60 (> 60)
[2016-06-10 05:26] LABS: Anisocytosis 1+ (Not Present)
[2016-06-10] MEDS: Albuterol 2.5 MG/3 ML NEBULIZER IH PRN ×2 (08:01→20:18)
[2016-06-10] MEDS: Budesonide/Formoterol 80/4.5 MDI IH SCH ×2 (08:08→20:18)
[2016-06-10] MEDS: Folic Acid 1 MG TABLET PO SCH (09:09)
[2016-06-10] MEDS: *HR* Morphine Immed Rel 30 MG TABLET PO PRN ×2 (09:09→21:03)
[2016-06-10] MEDS: Colchicine 0.6 MG TABLET PO SCH (09:09)
[2016-06-10] MEDS: Megestrol Acetate 400 MG/10 ML UDC PO SCH (09:12)
[2016-06-10] MEDS: *HR* HYDROcodone/Acet 5/325 mg TABLET PO PRN (10:58)
[2016-06-10 11:19] LABS: Bilirubin,Urine Negative (Negative); Blood,Urine Negative (Negative); Clarity,Urine Clear (Clear); Color,Urine Yellow (Yellow); Glucose,Urine (UA) Normal (Normal); Ketones,Urine Negative (Negative); Leukocyte Esterase,Urine Negative (Negative); Nitrite,Urine Negative (Negative); Protein,Urine Negative (Neg-Trace); Specific Gravity,Urine 1.008 (1.010-1.025); Urobilinogen,Urine Normal (Normal)
--- NOTE | 2016-06-10 12:20 | Internal Med Progress Note ---
Date of Encounter: 06/10/16 Time of Encounter: 10:00 - Assessment and plan (1) Acute encephalopathy Current Visit: Yes Status: Acute Assessment and plan: Etiology undetermined, neurology consult appreciated. - MRI negative for metastasis. - EEG done. - Blood cx and UA to r/o infection (especially port infection). (2) Hypertension Current Visit: No Status: Chronic Assessment and plan: BP is not high. Not on hypertension medication for 3 weeks per patient. Qualifiers: Hypertension type: essential hypertension Qualified Code(s): I10 - Essential (primary) hypertension (3) Adenocarcinoma of lung Current Visit: No Status: Chronic Assessment and plan: Oncology consult saw pt and input appreciated Qualifiers: Laterality: right Qualified Code(s): C34.91 - Malignant neoplasm of unspecified part of right bronchus or lung (4) Anemia Current Visit: Yes Status: Acute Assessment and plan: Etiology is undetermined. Possibly due to GI blood loss versus chemotherapy- induced anemia. Guaiac positive. - We will check anemia workup. - We will give patient transfusion and closely follow up hemoglobin change. - GI consult appreciated. Consider less likely GI bleeding, no further procedure balancing the benefit and risk. - Oncology consult - Cont monitor H/H and transfusion as needed. Qualifiers: Anemia type: unspecified type Qualified Code(s): D64.9 - Anemia, unspecified (5) Chemotherapy-induced thrombocytopenia Current Visit: Yes Status: Acute Assessment and plan: Will give patient platelet transfusion, follow up platelet level. Oncology consult appreciated. (6) DVT prophylaxis Current Visit: Yes Status: Acute Assessment and plan: EPCD. No anticoagulation because of low hemoglobin and low platelet. - Time Spent With Patient 25 - 35 minutes - Subjective Interval history: Patient is a 65-year-old male admitted for altered mental status and severe anemia. His past medical history is significant for stage IV lung cancer on chemotherapy, hypertension, hyperlipidemia. Patient was seen and examined. Pt had no further confusion over last 48 hours. hemoglobin elevated to 8.2. UA negative for UTI. Blood cx pending. No further fever. - Constitutional Vitals: Temp Pulse Resp BP Pulse Ox 98.3 F 95 18 114/66 98 06/10/16 10:35 06/10/16 11:05 06/10/16 10:35 06/10/16 10:35 06/10/16 10:35 General appearance: Present: cooperative, A&O X 3, no acute distress, obese - Head Head exam: Present: atraumatic, normocephalic - Eye Eye exam: Present: PERRL, conjuntiva pink, sclera anicteric Pupils: Present: PERRL - Neck Neck exam general surgery: Present: supple, trachea midline. Absent: lymphadenopathy - Respiratory Respiratory exam: Present: CTAB. Absent: accessory muscle use, rales, rhonchi, wheezes - Cardiovascular Cardiovascular exam: Present: RRR, +S1, +S2. Absent: diastolic murmur, gallop, rubs, systolic murmur - GI/Abdominal GI/Abdominal exam: Present: normal bowel sounds, soft, no peritoneal signs. Absent: distended, tenderness - Extremities Exam Extremities exam: Present: warm, radial pulses palpable and symetrical. Absent : calf tenderness, cyanotic, pedal edema - Neurological Exam Neurological exam: Present: CN II-XII intact, oriented X3, no focal deficits. Absent: pronater drift, facial droop, speech deficit - Skin Skin exam: Present: dry, intact Internal Medicine: Result - Labs CBC & Chem 7: 06/10/16 04:45 06/10/16 04:45 Labs: Short CBC 06/09/16 06/10/16 Range/Units 21:13 04:45 WBC 1.8 L 1.7 L (4.3-11.1) K/mcL Hgb 7.6 L 8.2 L (12.9-16.9) g/dL Hct 22.6 L 24.2 L (37.5-50.1) % Plt Count 35 L D 34 L (140-400) K/mcL Neutrophils # 0.8 L 0.7 L (1.6-8.9) K/mcL BMP 06/09/16 06/10/16 21:13 04:45 Sodium 142 143 Potassium 3.4 L 3.6 Chloride 109 110 H Carbon Dioxide 26 26 BUN 14 14 Creatinine 1.30 H 1.20 Glucose 89 78 Calcium 8.4 L 8.9 Urine 06/09/16 06/10/16 Range/Units 12:00 11:10 Urine Color Yellow Yellow (Yellow) Urine Clarity Clear Clear (Clear) Urine pH 6.0 6.0 (5.0-8.0) pH Units Ur Specific [place] 1.012 1.008 L (1.010-1.025) Urine Protein Trace Negative (Neg-Trace) mg/dL Urine Glucose (UA) Normal Normal (Normal) mg/dL - VTE Documentation of Mechanical Device: Intermittent pneumatic compression device Consult Discharge Plan - Plan Referrals: Maxine Delatorre CNP [Primary Care Provider] - 06/13/16 10:40 am
[2016-06-11] MEDS: Albuterol 2.5 MG/3 ML NEBULIZER IH PRN (04:30)
[2016-06-11 05:24] LABS: Hemoglobin 8.2 g/dL (12.9-16.9)
[2016-06-11 05:25] LABS: Eosinophils % 2.4 %; Hematocrit 24.8 % (37.5-50.1); Lymphocytes # 0.4 K/mcL (0.6-4.6); Lymphocytes % 27.4 %; Mean Corpuscular HGB Conc 33.1 g/dL (31.6-35.5); Mean Corpuscular Hemoglobin 30.4 pg (28.0-33.3); Mean Corpuscular Volume 91.9 fL (83.0-100.0); Monocytes # 0.4 K/mcL (0.0-1.3); Monocytes % 22.6 %; Neutrophils # 0.8 K/mcL (1.6-8.9); Red Cell Distribution Width 15.7 % (11.5-14.5); Segmented Neutrophils % 47.6 %
[2016-06-11 05:31] LABS: Ionized Calcium 1.19 mmol/L (1.15-1.35)
[2016-06-11 05:32] LABS: Platelet Count 56 K/mcL (140-400)
[2016-06-11 05:37] LABS: Phosphorous 3.6 mg/dL (2.3-4.7)
[2016-06-11 05:54] LABS: Platelet Estimate Decreased (Normal)
[2016-06-11 05:55] LABS: Anisocytosis 1+ (Not Present); Polychromasia 1+ (Not Present)
[2016-06-11] MEDS: Magnesium Sulfate 2 GM in D5% in Water 100 ML IVPB PRN (06:51)
[2016-06-11] MEDS: *HR* Morphine Immed Rel 30 MG TABLET PO PRN (06:54)
[2016-06-11 07:31] VITALS: BP 122/67
[2016-06-11 07:35] LABS: Potassium 3.8 mEq/L (3.5-4.5)
[2016-06-11] MEDS: Megestrol Acetate 400 MG/10 ML UDC PO SCH (08:57)
[2016-06-11] MEDS ORDERED: Magnesium Oxide 400 MG TABLET PO SCH (09:00)
[2016-06-11] MEDS: Folic Acid 1 MG TABLET PO SCH (09:10)
[2016-06-11] MEDS: Colchicine 0.6 MG TABLET PO SCH (09:10)
--- NOTE | 2016-06-11 09:57 | Discharge Summary ---
Date of Encounter: 06/11/16 Time of Encounter: 09:00 - Discharge Diagnosis (1) Acute encephalopathy Priority: Primary Status: Acute (2) Hypertension Priority: Secondary Status: Chronic Qualifiers: Hypertension type: essential hypertension Qualified Code(s): I10 - Essential (primary) hypertension (3) Adenocarcinoma of lung Priority: Secondary Status: Chronic Qualifiers: Laterality: right Qualified Code(s): C34.91 - Malignant neoplasm of unspecified part of right bronchus or lung (4) Anemia Priority: Primary Status: Acute Qualifiers: Anemia type: unspecified type Qualified Code(s): D64.9 - Anemia, unspecified (5) Chemotherapy-induced thrombocytopenia Priority: Secondary Status: Acute (6) DVT prophylaxis Priority: Secondary Status: Acute - Discharge Medications Prescriptions: Colchicine [Colcrys] 0.6 mg PO DAILY #10 tablet Magnesium Oxide [Mag-Ox] 400 mg PO DAILY #30 tablet Home Medications: Alprazolam [Xanax] 0.5 mg PO HS PRN 10/01/14 [History] Escitalopram Oxalate [Lexapro] 10 mg PO DAILY 10/01/14 [History] Spironolactone 50 mg PO DAILY 10/05/14 [History] Indomethacin 75 mg PO DAILY PRN 11/02/15 [History] Guaifenesin [Guaifenesin ER] 1,200 mg PO BID #14 tab.er.12h 03/14/16 [Rx] LORazepam [Ativan] 0.5 mg PO Q6H PRN #30 tablet 03/15/16 [Rx] Lidocaine/Prilocaine CREAM [Emla] 1 gm TP ONCE PRN #1 tube 03/15/16 [Rx] Magic Mouthwash 10 ml PO Q4H PRN #240 ml 03/15/16 [Rx] Omeprazole [PriLOSEC] 20 mg PO DAILY #30 capsule.dr 03/15/16 [Rx] Prochlorperazine Maleate [Compazine] 10 mg PO Q6HR PRN #40 tablet 03/15/16 [Rx] Folic Acid 1 mg PO DAILY #30 tablet 03/31/16 [Rx] Ondansetron [Zofran ODT] 8 mg SL Q8H PRN #60 tab.rapdis 03/31/16 [Rx] Albuterol Sulfate [Albuterol Inhaler] 2 puff IH Q4-6H PRN #1 inhaler 04/20/16 [ Rx] HYDROcodone/Acet 5/325 mg [[place] 5-325 mg] 1 tab PO Q6H PRN #90 tab 05/02/16 [Rx ] Morphine Sulfate 15 - 30 mg PO Q4H PRN #120 tab 05/02/16 [Rx] Crizotinib [Xalkori] 250 mg PO BID #60 capsule 05/04/16 [Rx] Fluticasone/Vilanterol [Breo Ellipta 100-25 Mcg INH] 1 puff IH DAILY #1 blst.w.dev 05/04/16 [Rx] Albuterol Neb [AccuNeb] 1.25 mg IH Q6H #30 inhsol 06/01/16 [Rx] Megestrol Acetate [Megace] 10 ml PO DAILY #300 udc 06/01/16 [Rx] Oxymetazoline [Afrin] 1 spray NS Q12HR PRN #1 bottle 06/05/16 [Rx] Colchicine [Colcrys] 0.6 mg PO DAILY #10 tablet 06/11/16 [Rx] Magnesium Oxide [Mag-Ox] 400 mg PO DAILY #30 tablet 06/11/16 [Rx] Allergies/Adverse Reactions: Allergies No Known Allergies Allergy (Verified 05/11/16 11:03) Procedures/tests Complete & Pending: Procedures Performed prior 72 hours Category Date Time Status MR head/brain wo/w con [MR] Stat MRI 06/08/16 11:37 Completed - Notes to Outpatient Provider 1. Patient has a 1 blood culture result is pending (blood from port), please follow-up the result at the oncology clinic. 2. Patient has a low magnesium level, Mg oxide 400 mg by mouth daily added, please follow-up magnesium level Date of admission: 06/05/16 18:48 Primary care physician: Maxine Delatorre CNP Consults: 06/06/16 11:03 Consult to Oncology Hematology [CONS] Routine Consulting Provider: Jemima Abernathy Reason for Consult: Anemia Call Completed: Yes 06/06/16 15:50 Consult to Gastroenterology [CONS] Routine Consulting Provider: Gastroenterology [facility] Reason for Consult: POSITIVE OCCULT STOOL Call Completed: Yes 06/08/16 12:22 Consult to Neurology [CONS] Routine Consulting Provider: Neurology [facility] Reason for Consult: Confusion. Brain metastasis?/seizure? Call Completed: Yes 06/09/16 09:48 Consult to Interpret Exam [CONS] Routine Consulting Provider: Peter Marti Consult to Interpret Exam: Interpret EEG Discharging clinician: Vic Marion Anticipated date of discharge: 06/11/16 - Patient Status Disposition: Home, Self-Care Condition: Good Functional capacity at discharge: independent ambulation Overall status at discharge: patient is back to baseline - Discharge Instructions Follow Up With: Maxine Delatorre CNP [Primary Care Provider] - 06/13/16 10:40 am Peter Marti DO [Partnered Physician] - Higinio King MD [Partnered Physician] - - Diet and Activity Activity: increase activity as tolerated Diet: low fat, low cholesterol, low salt diet Interval History: Mr. Ricardo is a 65 year old male sent over from the cancer center due to altered mental state, as well as low blood pressure. This gentleman is being treated for metastatic adenocarcinoma of the lung. The last couple of days his blood pressures been intermittently low, his family appreciated confusion today. Overall he admits is feeling somewhat better, although his labs were considerably abnormal, with hemoglobin of bit over 5, and platelet count of around 10,000. He is currently comfortable in the ER, with stable vital signs, a daughter is present provide some information, he admits he is feeling a good deal better already. over 5, platelet count around 10,000. He does admit having some episodic nosebleeds of late. No headache. He does appreciate intermittent bouts of small blood around the stoma site in his ostomy , this is not new for him. No gross hematuria, no blood in the stool per se. Hospital course: Mr. Ricardo is a 65 year old male admitted for altered mental status and low hemoglobin. He was given transfusion with PRBC and platelet for anemia and thrombocytopenia. Patient had another episode of confusion during hospitalization, neurology consult was called. MRI and EEG are remarkable. Patient had no further confusion over last 48 hours. His Hemoglobin is stable now and platelet level get up. Patient will discharge home today and follow-up oncology and neurology as outpatient. I saw and examined the patient today. He is awake alert, oriented 3, no fever. Vital signs stable. Patient has no signs of infection, 1 blood culture negative. Another blood culture result is pending, discussed with patient, he will follow up the result at oncology office in next week. Patient is stable to discharge home. - Time Spent with Patient Total time spent providing and/or coordinating discharge services: Greater than 30 minutes - Constitutional Vitals: Temp Pulse Resp BP Pulse Ox 98 F 81 18 122/67 95 06/11/16 07:25 06/11/16 09:37 06/11/16 07:25 06/11/16 07:25 06/11/16 07:25 General appearance: Present: cooperative, A&O X 3, no acute distress, obese - Head Head exam: Present: atraumatic, normocephalic - Eye Eye exam: Present: PERRL, conjuntiva pink, sclera anicteric Pupils: Present: PERRL - Neck Neck exam general surgery: Present: supple, trachea midline. Absent: lymphadenopathy - Respiratory Respiratory exam: Present: CTAB. Absent: accessory muscle use, rales, rhonchi, wheezes - Cardiovascular Cardiovascular exam: Present: RRR, +S1, +S2. Absent: diastolic murmur, gallop, rubs, systolic murmur - GI/Abdominal GI/Abdominal exam: Present: normal bowel sounds, soft, no peritoneal signs. Absent: distended, tenderness - Extremities Exam Extremities exam: Present: warm, radial pulses palpable and symetrical. Absent : calf tenderness, cyanotic, pedal edema - Neurological Exam Neurological exam: Present: CN II-XII intact, oriented X3, no focal deficits. Absent: pronater drift, facial droop, speech deficit - Skin Skin exam: Present: dry, intact - VTE Documentation of Mechanical Device: Intermittent pneumatic compression device
--- NOTE | 2016-06-11 10:28 | Oncology Inp Progress Note ---
Date of Encounter: 06/11/16 Time of Encounter: 09:00 Oncology: Subj Interval history: Feels well, ready to get home today A/P Adenocarcinoma of the lung status post treatment with carboplatin, Alimta hospitalized with the pancytopenia and altered mental status due to the same. Patient's lab counts have shown improvement although not normal, he was recommended to have a closer follow-up next week with lab works and to plan further treatment with his oncologist. - Constitutional Vitals: Vital Signs Temp Pulse Resp BP Pulse Ox 06/11/16 09:37 81 06/11/16 07:25 98 F 85 18 122/67 95 06/11/16 04:33 95 06/11/16 04:31 17 95 06/11/16 04:07 98.3 F 80 16 121/68 95 06/10/16 23:35 98.3 F 86 16 95/62 96 06/10/16 20:18 18 96 06/10/16 19:46 98.7 F 88 16 100/48 95 06/10/16 16:08 98.9 F 86 14 98/75 96 06/10/16 11:05 95 06/10/16 10:35 98.3 F 88 18 114/66 98 Intake and Output 06/10/16 06/11/16 06/11/16 23:59 07:59 15:59 Intake Total 250 / 250 464 / 464 Output Total 625 / 625 1425 / 1425 Balance -375 / -375 -1425 / -1425 464 / 464 Intake: IV Fluids 104 / 104 Magnesium Sulfate 2 GM In 104 / 104 Dextrose 5% 100 ML @ 50 mls/hr IVPB Q6H PRN Rx#: [id number] Oral 250 / 250 360 / 360 Output: Urine 625 / 625 1425 / 1425 Other: Meal Breakfast Percent of Meal Consumed 90% Weight 133.2 kg Patient Weight 06/11/16 23:59 Weight 133.2 kg General appearance: no acute distress Exam: 12 pt ROS is negative - Head Head exam: Present: atraumatic, normal inspection - ENT ENT exam: Present: mucous membranes moist - Respiratory Respiratory exam: Present: CTAB - Cardiovascular Cardiovascular exam: Present: +S1, +S2 - GI/Abdominal GI/Abdominal exam: Present: distended, normal bowel sounds, soft - Extremities Exam Extremities exam: Present: normal inspection - Neurological Exam Neurological exam: Present: alert, oriented X3, no focal deficits - Psychiatric Psychiatric exam: Present: normal affect Oncology: Obj Data - Labs CBC & Chem 7: 06/11/16 03:43 06/11/16 03:43 Labs: Laboratory Results - last 24 hr 06/10/16 06/11/16 06/11/16 11:10 03:43 03:43 WBC 1.6 L RBC 2.70 L Hgb 8.2 L Hct 24.8 L MCV 91.9 MCH 30.4 MCHC 33.1 RDW 15.7 H Plt Count 56 L D MPV 12.0 Immature Gran % 0.0 Seg Neutrophils % 47.6 Lymphocytes % 27.4 Monocytes % 22.6 Eosinophils % 2.4 Basophils % 0.0 Neutrophils # 0.8 L Lymphocytes # 0.4 L Monocytes # 0.4 Eosinophils # 0.0 Basophils # 0.0 Platelet Estimate Decreased L Polychromasia 1+ A Anisocytosis 1+ A Potassium Ionized Calcium Phosphorus Magnesium 1.2 L Urine Color Yellow Urine Clarity Clear Urine pH 6.0 Ur Specific [place] 1.008 L Urine Protein Negative Urine Glucose (UA) Normal Urine Ketones Negative Urine Blood Negative Urine Nitrite Negative Urine Bilirubin Negative Urine Urobilinogen Normal Ur Leukocyte Esterase Negative Ur Culture Indicated? NO 06/11/16 03:43 WBC RBC Hgb Hct MCV MCH MCHC RDW Plt Count MPV Immature Gran % Seg Neutrophils % Lymphocytes % Monocytes % Eosinophils % Basophils % Neutrophils # Lymphocytes # Monocytes # Eosinophils # Basophils # Platelet Estimate Polychromasia Anisocytosis Potassium 3.8 Ionized Calcium 1.19 Phosphorus 3.6 Magnesium Urine Color Urine Clarity Urine pH Ur Specific [place] Urine Protein Urine Glucose (UA) Urine Ketones Urine Blood Urine Nitrite Urine Bilirubin Urine Urobilinogen Ur Leukocyte Esterase Ur Culture Indicated? Consult Discharge Plan - Plan Referrals: Maxine Delatorre CNP [Primary Care Provider] - 06/13/16 10:40 am Peter Marti DO [Partnered Physician] - Higinio King MD [Partnered Physician] - Prescriptions: Colchicine [Colcrys] 0.6 mg PO DAILY #10 tablet Magnesium Oxide [Mag-Ox] 400 mg PO DAILY #30 tablet
[2016-06-11] MEDS: Budesonide/Formoterol 80/4.5 MDI IH SCH (11:20)
== END 2016-06-11 11:45 | disposition home or self-care (01) ==
LOC: 2NNU 15:37 → EMEROO 15:37 → SUATTDRO 18:48 → 2NNU 20:43
PROVIDERS: ADMIT Internal Medicine; ATTEND Internal Medicine

== ENCOUNTER 2016-07-04 20:01 | Observation (INO) ==
--- NOTE | 2016-07-04 20:59 | Emergency Department Note ---
Disposition Clinical Impression: Morbid obesity with BMI of 40.0-44.9, adult, COPD (chronic obstructive pulmonary disease), Pneumonia, Renal failure, Anemia, Adenocarcinoma of lung, Gout, Altered mental status, Abnormal urinalysis Disposition: Admitted As Inpatient Referrals: Maxine Delatorre [facility] [Primary Care Provider] - Forms: Work/School Release, ED Satisfaction Letter General Adult HPI - General Chief complaint: ED General Medical Stated complaint: Cancer PT//Anemic// gout flare Time Seen by Provider: 07/04/16 20:52 Source: patient Limitations: no limitations - History of Present Illness HPI Narrative: 65-year-old male reports to the emergency department with his daughter, there is concern for confusion. The patient was not answering his phone at home, per his daughter, she went to the house noticed he was confused. He is reportedly having visual hallucinations. She reports his colostomy bag was off and there was stool everywhere. There is no history of bleeding. The patient does not take blood thinners now. There is no history of direct trauma. The patient states he has gout and hurts in his hands and feet. There is no history of fever. A cough has been described. No rashes. No chest pain or cesario shortness of breath. No trouble moving the arms or legs independently no history of unilateral arm weakness or numbness. No history of slurred speech or headache. The patient states he has not aneurysm in his abdomen which is measured at 5 cm, he denies any abdominal or back pain. There is no history of syncope or seizure. Pain Scale: 7 - Related Data Home Medications Medication Instructions Recorded Confirmed Alprazolam [Xanax] 0.5 mg PO HS PRN 10/01/14 07/04/16 Escitalopram Oxalate [Lexapro] 10 mg PO DAILY 10/01/14 07/04/16 Spironolactone 50 mg PO DAILY 10/05/14 07/04/16 Indomethacin 75 mg PO DAILY PRN 11/02/15 07/04/16 Albuterol Neb [AccuNeb] 1.25 mg IH Q6H PRN 07/04/16 07/04/16 Previous Rx's Medication Instructions Recorded Guaifenesin [Guaifenesin ER] 1,200 mg PO BID #14 tab.er.12h 03/14/16 LORazepam [Ativan] 0.5 mg PO Q6H PRN #30 tablet 03/15/16 Lidocaine/Prilocaine CREAM [Emla] 1 gm TP ONCE PRN #1 tube 03/15/16 Magic Mouthwash 10 ml PO Q4H PRN #240 ml 03/15/16 Omeprazole [PriLOSEC] 20 mg PO DAILY #30 capsule. 03/15/16 Prochlorperazine Maleate 10 mg PO Q6HR PRN #40 tablet 03/15/16 [Compazine] Folic Acid 1 mg PO DAILY #30 tablet 03/31/16 Ondansetron [Zofran ODT] 8 mg SL Q8H PRN #60 tab.rapdis 03/31/16 Albuterol Sulfate [Albuterol 2 puff IH Q4-6H PRN #1 inhaler 04/20/16 Inhaler] HYDROcodone/Acet 5/325 mg [[place] 1 tab PO Q6H PRN #90 tab 05/02/16 5-325 mg] Morphine Immed Rel [Morphine 15 - 30 mg PO Q4H PRN #120 tab 05/02/16 Sulfate] Crizotinib [Xalkori] 250 mg PO BID #60 capsule 05/04/16 Fluticasone/Vilanterol [Breo 1 puff IH DAILY #1 blst.w.dev 05/04/16 Ellipta 100-25 Mcg INH] Megestrol Acetate [Megace] 10 ml PO DAILY #300 udc 06/01/16 Oxymetazoline [Afrin] 1 spray NS Q12HR PRN #1 bottle 06/05/16 Magnesium Oxide [Mag-Ox] 400 mg PO DAILY #30 tablet 06/11/16 Allergies Allergy/AdvReac Type Severity Reaction Status Date / Time No Known Allergies Allergy Verified 05/11/16 11:03 All systems ED: reviewed and negative except as stated. Past Medical History - Past Medical History Medical history: Reports: aortic aneurysm, arthritis, cancer, CHF, COPD, hyperlipidemia, hypertension, malignancy, other Surgical history: Reports: colectomy, colostomy, other (Surgery, cataract retina in 1984, right knee medial meniscal tear, lung resection in 2013-right lung, sigmoid colectomy, colostomy, appendectomy.) Psychiatric history: Reports: depression - Social History Smoking Status: Former smoker Smokeless Tobacco Status: No Alcohol use: Reports: none Drug use: Reports: none Physical Exam - General Limitations: no limitations General appearance: alert, in no apparent distress - Head Head exam: atraumatic, normocephalic, normal inspection - Eye Eye exam: Present: normal appearance, PERRL, EOMI. Absent: scleral icterus, conjunctival injection, miosis, mydriasis - ENT ENT exam: normal exam, normal oropharynx, mucous membranes moist, TM's normal bilaterally, normal external ear exam - Neck Neck exam: Present: normal inspection, full ROM, trachea midline. Absent: tenderness - Chest Chest inspection: Present: symmetric chest wall rise. Absent: tenderness - Respiratory Respiratory exam: Present: other (Coarse breath sounds noted.). Absent: respiratory distress, wheezes, accessory muscle use, prolonged expiratory phase - Cardiovascular Cardiovascular exam: Present: normal rhythm, tachycardia - Abdominal Exam Abdominal exam: Present: soft, Non-Tender, normal bowel sounds, other ( Colostomy in place. No bruising or acute trauma). Absent: tenderness, distention, guarding, rebound, rigidity, trauma, pulsatile mass - Extremities Exam Extremities exam: Present: normal inspection, full ROM, normal capillary refill , pedal edema, joint swelling (Gen. [id number] swelling noted.), other (All extremities warm and well perfused without evidence of significant trauma and are supple throughout the major joints. All extremities warm and well perfused without neurovascular or neuromuscular compromise.). Absent: tenderness, calf tenderness - Expanded Lower Extremity Exam Lower leg exam: Absent: Homans' sign Neurovascular/Tendon exam: Present: normal capillary refill. Absent: motor deficit, sensory deficit, tendon deficit, extremity cold to touch, pallor - Back Exam Back exam: Present: normal inspection, full ROM. Absent: tenderness, CVA tenderness (R), CVA tenderness (L), vertebral tenderness - Neurological Exam Neurological exam: Present: alert, oriented X3, CN II-XII intact. Absent: motor sensory deficit - Psychiatric Psychiatric exam: Present: normal affect, normal mood - Skin Skin exam: Present: warm, dry, intact, normal color. Absent: rash, cyanosis, diaphoresis, erythema, pallor, mottled Course Vital Signs Temperature 98 F 07/04/16 20:04 Pulse Rate 114 07/04/16 20:04 Respiratory Rate 16 07/04/16 20:04 Blood Pressure 112/66 07/04/16 20:04 O2 Sat by Pulse Oximetry 97 07/04/16 20:04 Temperature 98 F 07/04/16 20:04 Pulse Rate 114 07/04/16 20:04 Respiratory Rate 16 07/04/16 20:04 Blood Pressure 112/66 07/04/16 20:04 O2 Sat by Pulse Oximetry 97 07/04/16 20:04 Oxygen Delivery Oxygen Delivery Room Air Medical Decision Making - MDM Narrative Medical decision making narrative: The patient has a markedly elevated CRP, his chest x-ray is suggestive of pneumonia. IV access was established IV fluids and Levaquin ordered. The patient has been confused weak and hallucinating, he has multiple medical problems and appears to have an acute infectious process. He is tachycardic. Based on his multiple comorbidities, apparent pneumonitis, and acute hallucinosis, I felt it would be appropriate to admit the patient to the hospital. I have reviewed the case with the hospitalist on-call who has accepted the patient to their care. - Lab Data Lab results reviewed: Yes I reviewed the patient's lab results. Result diagrams: 07/04/16 21:19 07/04/16 21:19 Lab Results 07/04/16 07/04/16 07/04/16 Range/Units 21:19 21:19 21:19 WBC 11.1 (4.3-11.1) K/mcL RBC 2.92 L (4.19-5.50) M/mcL Hgb 8.7 L (12.9-16.9) g/dL Hct 28.0 L (37.5-50.1) % MCV 95.9 (83.0-100.0) fL MCH 29.8 (28.0-33.3) pg MCHC 31.1 L (31.6-35.5) g/dL RDW 19.6 H (11.5-14.5) % Plt Count 185 (140-400) K/mcL MPV 10.3 (9.4-12.4) fL Immature Gran % 1.9 (0-4) % Seg Neutrophils % 74.2 % Lymphocytes % 13.1 % Monocytes % 8.8 % Eosinophils % 1.5 % Basophils % 0.5 % Neutrophils # 8.2 (1.6-8.9) K/mcL Lymphocytes # 1.5 (0.6-4.6) K/mcL Monocytes # 1.0 (0.0-1.3) K/mcL Eosinophils # 0.2 (0.0-0.6) K/mcL Basophils # 0.1 (0.0-0.2) K/mcL Nucleated RBCs/100 WBC 0.3 H (0) /100 WBC PT (9.4-12.1) Seconds INR APTT (26.0-36.0) Seconds Sodium 141 (136-145) mEq/L Potassium 3.7 (3.5-4.5) mEq/L Chloride 109 (98-109) mEq/L Carbon Dioxide 22 (19-29) mEq/L BUN 34 H (8-26) mg/dL Creatinine 1.85 H (0.72-1.25) mg/dL Est GFR ( Amer) 45 L (> 60) Est GFR (Non-Af Amer) 37 L (> 60) BUN/Creatinine Ratio 18 (6-26) Glucose 106 H (70-99) mg/dL Calculated Osmolality 300 (280-300) Lactic Acid 1.1 (0.5-2.2) mmol/L Calcium 9.4 (8.6-10.8) mg/dL Magnesium 1.0 L (1.6-2.6) mg/dL Total Bilirubin (0.2-1.2) mg/dL Direct Bilirubin (0.0-0.5) mg/dL Indirect Bilirubin (0.0-1.2) mg/dL AST (5-34) Units/L ALT (0-55) Units/L Alkaline Phosphatase (38-126) Units/L Creatine Kinase 29 L (30-200) Units/L Troponin I (0-0.03) ng/mL C-Reactive Protein (Less than 5) mg/L B-Natriuretic Peptide (0-100) pg/mL Serum Total Protein (6.0-8.3) g/dL Albumin (3.5-5.0) g/dL Globulin (2.4-3.5) g/dL Albumin/Globulin Ratio (1.1-2.2) Urine Color (Yellow) Urine Clarity (Clear) Urine pH (5.0-8.0) pH Units Ur Specific [place] (1.010-1.025) Urine Protein (Neg-Trace) mg/dL Urine Glucose (UA) (Normal) mg/dL Urine Ketones (Negative) mg/dL Urine Blood (Negative) Urine Nitrite (Negative) Urine Bilirubin (Negative) Urine Urobilinogen (Normal) mg/dL Ur Leukocyte Esterase (Negative) Urine Microscopic RBC (0-3) per hpf Urine Microscopic WBC (0-3) per hpf Ur Squamous Epith Cells (None-Few) per lpf Urine Bacteria (None-Few) per hpf Hyaline Casts (None-Few) per lpf Ur Culture Indicated? (NO) Salicylates (15-30) mg/dL Urine Opiates Screen (Lndijn=655) ng/mL Acetaminophen (10-30) mcg/mL Ur Barbiturates Screen (Zqghdf=459) ng/mL Ur Phencyclidine Scrn (Cutoff=25) ng/mL Ur Amphetamines Screen (Gdighe=0026) ng/mL U Benzodiazepines Scrn (Papmma=636) ng/mL Urine Cocaine Screen (Cutoff= 300) ng/mL U Marijuana (THC) Screen (Cutoff = 50) ng/mL 07/04/16 07/04/16 07/04/16 Range/Units 21:19 21:19 21:19 WBC (4.3-11.1) K/mcL RBC (4.19-5.50) M/mcL Hgb (12.9-16.9) g/dL Hct (37.5-50.1) % MCV (83.0-100.0) fL MCH (28.0-33.3) pg MCHC (31.6-35.5) g/dL RDW (11.5-14.5) % Plt Count (140-400) K/mcL MPV (9.4-12.4) fL Immature Gran % (0-4) % Seg Neutrophils % % Lymphocytes % % Monocytes % % Eosinophils % % Basophils % % Neutrophils # (1.6-8.9) K/mcL Lymphocytes # (0.6-4.6) K/mcL Monocytes # (0.0-1.3) K/mcL Eosinophils # (0.0-0.6) K/mcL Basophils # (0.0-0.2) K/mcL Nucleated RBCs/100 WBC (0) /100 WBC PT 14.6 H (9.4-12.1) Seconds INR 1.3 APTT 28.7 (26.0-36.0) Seconds Sodium (136-145) mEq/L Potassium (3.5-4.5) mEq/L Chloride (98-109) mEq/L Carbon Dioxide (19-29) mEq/L BUN (8-26) mg/dL Creatinine (0.72-1.25) mg/dL Est GFR ( Amer) (> 60) Est GFR (Non-Af Amer) (> 60) BUN/Creatinine Ratio (6-26) Glucose (70-99) mg/dL Calculated Osmolality (280-300) Lactic Acid (0.5-2.2) mmol/L Calcium (8.6-10.8) mg/dL Magnesium (1.6-2.6) mg/dL Total Bilirubin 1.2 (0.2-1.2) mg/dL Direct Bilirubin 0.6 H (0.0-0.5) mg/dL Indirect Bilirubin 0.6 (0.0-1.2) mg/dL AST 13 (5-34) Units/L ALT 11 (0-55) Units/L Alkaline Phosphatase 84 (38-126) Units/L Creatine Kinase (30-200) Units/L Troponin I 0.01 (0-0.03) ng/mL C-Reactive Protein 217 H (Less than 5) mg/L B-Natriuretic Peptide (0-100) pg/mL Serum Total Protein 7.1 (6.0-8.3) g/dL Albumin 2.8 L (3.5-5.0) g/dL Globulin 4.3 H (2.4-3.5) g/dL Albumin/Globulin Ratio 0.7 L (1.1-2.2) Urine Color (Yellow) Urine Clarity (Clear) Urine pH (5.0-8.0) pH Units Ur Specific [place] (1.010-1.025) Urine Protein (Neg-Trace) mg/dL Urine Glucose (UA) (Normal) mg/dL Urine Ketones (Negative) mg/dL Urine Blood (Negative) Urine Nitrite (Negative) Urine Bilirubin (Negative) Urine Urobilinogen (Normal) mg/dL Ur Leukocyte Esterase (Negative) Urine Microscopic RBC (0-3) per hpf Urine Microscopic WBC (0-3) per hpf Ur Squamous Epith Cells (None-Few) per lpf Urine Bacteria (None-Few) per hpf Hyaline Casts (None-Few) per lpf Ur Culture Indicated? (NO) Salicylates < 5.0 L (15-30) mg/dL Urine Opiates Screen (Mdmpxz=220) ng/mL Acetaminophen < 1.0 L (10-30) mcg/mL Ur Barbiturates Screen (Dbczhl=907) ng/mL Ur Phencyclidine Scrn (Cutoff=25) ng/mL Ur Amphetamines Screen (Beznvc=6915) ng/mL U Benzodiazepines Scrn (Xqfifx=075) ng/mL Urine Cocaine Screen (Cutoff= 300) ng/mL U Marijuana (THC) Screen (Cutoff = 50) ng/mL 07/04/16 07/04/16 07/04/16 Range/Units 21:19 22:31 22:31 WBC (4.3-11.1) K/mcL RBC (4.19-5.50) M/mcL Hgb (12.9-16.9) g/dL Hct (37.5-50.1) % MCV (83.0-100.0) fL MCH (28.0-33.3) pg MCHC (31.6-35.5) g/dL RDW (11.5-14.5) % Plt Count (140-400) K/mcL MPV (9.4-12.4) fL Immature Gran % (0-4) % Seg Neutrophils % % Lymphocytes % % Monocytes % % Eosinophils % % Basophils % % Neutrophils # (1.6-8.9) K/mcL Lymphocytes # (0.6-4.6) K/mcL Monocytes # (0.0-1.3) K/mcL Eosinophils # (0.0-0.6) K/mcL Basophils # (0.0-0.2) K/mcL Nucleated RBCs/100 WBC (0) /100 WBC PT (9.4-12.1) Seconds INR APTT (26.0-36.0) Seconds Sodium (136-145) mEq/L Potassium (3.5-4.5) mEq/L Chloride (98-109) mEq/L Carbon Dioxide (19-29) mEq/L BUN (8-26) mg/dL Creatinine (0.72-1.25) mg/dL Est GFR ( Amer) (> 60) Est GFR (Non-Af Amer) (> 60) BUN/Creatinine Ratio (6-26) Glucose (70-99) mg/dL Calculated Osmolality (280-300) Lactic Acid (0.5-2.2) mmol/L Calcium (8.6-10.8) mg/dL Magnesium (1.6-2.6) mg/dL Total Bilirubin (0.2-1.2) mg/dL Direct Bilirubin (0.0-0.5) mg/dL Indirect Bilirubin (0.0-1.2) mg/dL AST (5-34) Units/L ALT (0-55) Units/L Alkaline Phosphatase (38-126) Units/L Creatine Kinase (30-200) Units/L Troponin I (0-0.03) ng/mL C-Reactive Protein (Less than 5) mg/L B-Natriuretic Peptide 217 H (0-100) pg/mL Serum Total Protein (6.0-8.3) g/dL Albumin (3.5-5.0) g/dL Globulin (2.4-3.5) g/dL Albumin/Globulin Ratio (1.1-2.2) Urine Color Yellow (Yellow) Urine Clarity Clear (Clear) Urine pH 6.0 (5.0-8.0) pH Units Ur Specific [place] 1.013 (1.010-1.025) Urine Protein 30 H (Neg-Trace) mg/dL Urine Glucose (UA) Normal (Normal) mg/dL Urine Ketones Negative (Negative) mg/dL Urine Blood Negative (Negative) Urine Nitrite Negative (Negative) Urine Bilirubin Negative (Negative) Urine Urobilinogen Normal (Normal) mg/dL Ur Leukocyte Esterase Negative (Negative) Urine Microscopic RBC 5-15 H (0-3) per hpf Urine Microscopic WBC 0-3 (0-3) per hpf Ur Squamous Epith Cells Moderate H (None-Few) per lpf Urine Bacteria None Seen (None-Few) per hpf Hyaline Casts None Seen (None-Few) per lpf Ur Culture Indicated? NO (NO) Salicylates (15-30) mg/dL Urine Opiates Screen Positive H (Nkzpja=061) ng/mL Acetaminophen (10-30) mcg/mL Ur Barbiturates Screen Negative (Wygzxy=898) ng/mL Ur Phencyclidine Scrn Negative (Cutoff=25) ng/mL Ur Amphetamines Screen Negative (Ipcxmx=4670) ng/mL U Benzodiazepines Scrn Negative (Fxsiae=421) ng/mL Urine Cocaine Screen Negative (Cutoff= 300) ng/mL U Marijuana (THC) Screen Negative (Cutoff = 50) ng/mL - Radiology Data Radiology results reviewed: Yes I reviewed the patient's radiology results.
[2016-07-04 21:30] LABS: Basophils # 0.1 K/mcL (0.0-0.2); Basophils % 0.5 %; Eosinophils # 0.2 K/mcL (0.0-0.6); Eosinophils % 1.5 %; Hemoglobin 8.7 g/dL (12.9-16.9); Immature Granulocytes % 1.9 % (0-4); Lymphocytes # 1.5 K/mcL (0.6-4.6); Lymphocytes % 13.1 %; Mean Corpuscular HGB Conc 31.1 g/dL (31.6-35.5); Mean Corpuscular Hemoglobin 29.8 pg (28.0-33.3); Mean Corpuscular Volume 95.9 fL (83.0-100.0); Mean Platelet Volume 10.3 fL (9.4-12.4); Monocytes % 8.8 %; Neutrophils # 8.2 K/mcL (1.6-8.9); Nucleated Red Blood Cells 0.3 /100 WBC (0); Platelet Count 185 K/mcL (140-400); Red Blood Count 2.92 M/mcL (4.19-5.50); Red Cell Distribution Width 19.6 % (11.5-14.5); Segmented Neutrophils % 74.2 %
[2016-07-04 21:38] LABS: INR 1.3; Prothrombin Time 14.6 Seconds (9.4-12.1)
[2016-07-04 21:40] LABS: Activated Partial Thrombo Time 28.7 Seconds (26.0-36.0)
[2016-07-04 21:48] LABS: Alanine Aminotransferase 11 Units/L (0-55); Albumin 2.8 g/dL (3.5-5.0); Albumin/Globulin Ratio 0.7 (1.1-2.2); Alkaline Phosphatase 84 Units/L (38-126); Aspartate Amino Transferase 13 Units/L (5-34); Bilirubin,Direct 0.6 mg/dL (0.0-0.5); Bilirubin,Indirect 0.6 mg/dL (0.0-1.2); Bilirubin,Total 1.2 mg/dL (0.2-1.2); Calcium 9.4 mg/dL (8.6-10.8); Globulin 4.3 g/dL (2.4-3.5); Potassium 3.7 mEq/L (3.5-4.5); Total Protein 7.1 g/dL (6.0-8.3)
[2016-07-04 21:49] LABS: Acetaminophen < 1.0 mcg/mL (10-30); Salicylate < 5.0 mg/dL (15-30)
[2016-07-04 22:09] LABS: C-Reactive Protein 217 mg/L (Less than 5)
[2016-07-04] MEDS ORDERED: 0.9 % Sodium Chloride 1,000 ML IVC ONE ×2 (22:53→22:56)
[2016-07-04] MEDS ORDERED: Levofloxacin 750 MG/150 ML 750 MG/150 ML BAG IVPB ONE (22:53)
[2016-07-04 22:59] LABS: Bilirubin,Urine Negative (Negative); Blood,Urine Negative (Negative); Clarity,Urine Clear (Clear); Color,Urine Yellow (Yellow); Glucose,Urine (UA) Normal (Normal); Ketones,Urine Negative (Negative); Leukocyte Esterase,Urine Negative (Negative); Nitrite,Urine Negative (Negative); Protein,Urine 30 mg/dL (Neg-Trace); Specific Gravity,Urine 1.013 (1.010-1.025); Urobilinogen,Urine Normal (Normal)
[2016-07-04 23:01] LABS: Amphetamine Screen,Urine Negative ng/mL (Cutoff=1000); Barbiturate Screen,Urine Negative ng/mL (Cutoff=200); Benzodiazepines Screen,Urine Negative ng/mL (Cutoff=200); Cannabinoid Screen,Urine Negative ng/mL (Cutoff = 50); Cocaine Screen,Urine Negative ng/mL (Cutoff= 300); Opiate Screen,Urine Positive ng/mL (Cutoff=300); Phencyclidine Screen,Urine Negative ng/mL (Cutoff=25)
[2016-07-04 23:03] LABS: Bacteria,Urine None Seen per hpf (None-Few); Hyaline Casts,Urine None Seen per lpf (None-Few); Squamous Epithelial Cell,Urine Moderate per lpf (None-Few); WBC,Urine 0-3 per hpf (0-3)
[2016-07-05] MEDS ORDERED: *HR* Morphine Immed Rel 30 MG TABLET PO PRN (01:06)
--- NOTE | 2016-07-05 01:07 | Internal Med History&Physical ---
Date of Encounter: 07/05/16 Time of Encounter: 01:06 Assessment and Plan (1) Pneumonia Current visit: Yes Status: Acute patient with underlying COPD and lung cancer comes in with signs and symptoms concerning for pneumonia, an infiltrate is also seen on diagnostic imaging, we will thus admit him for IV medications pending microbiology results, will check urine strep and legionella, sputum Gram stain and c/s Qualifiers: Pneumonia type: due to unspecified organism Laterality: right Lung location: lower lobe of lung Qualified Code(s): J18.1 - Lobar pneumonia, unspecified organism (2) COPD (chronic obstructive pulmonary disease) Current visit: Yes Status: Chronic not in florid exacerbation, we will do PRN nebs in addition to his home inhaler Qualifiers: COPD type: chronic bronchitis Chronic bronchitis type: simple Qualified Code(s): J41.0 - Simple chronic bronchitis (3) Lung cancer Current visit: Yes Status: Chronic will defer to outpatient management, reports as recurrent Qualifiers: Laterality: right Lung location: upper lobe of lung Qualified Code(s): C34.11 - Malignant neoplasm of upper lobe, right bronchus or lung (4) Hypertension Current visit: Yes Status: Chronic seems to be on spironolactone, we will continue that Qualifiers: Hypertension type: essential hypertension Qualified Code(s): I10 - Essential (primary) hypertension (5) Anemia Current visit: Yes Status: Chronic may be multifactorial; chronic disease related-CKD, malignancy and AVERY from GI loss or nutritional we will check iron profile and ferritin levels, will transfuse if <7, otherwise we will follow investigations and consider adding supplements Qualifiers: Anemia type: other cause Other causes of anemia: sideroblastic, secondary to disease Qualified Code(s): 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 Ricardo is a 65 year old male with a history of recurrent lung cancer currently being managed on the outpatient by his oncologist was brought in for altered mental status. Patient lives at home with his grand daughter who was away at school today when her daughter called to check on him. The phone went unanswered so is daughter came to his house to figure out what was happening and found patient confused with his colostomy bag out and stool everywhere. He was also reported as having visual hallucinations, currently resolved. He reports chesty cough for about a weeks now, associated with worsened baseline dyspnea, with dyspnea on exertion. His cough is productive of greenish sputum. He denies fever, chills, nausea or vomiting. In the ER his CXR was suggestive of a right lower lobe infiltrate so he is being admitted for management of pneumonia. Past Medical History Hypertension Anxiety Gout AQUILES on CPAP CKD stage 3 Obesity Erectile dysfunction Carpal tunnel Depression Hypercholesterolemia Insomnia Fatigue Restless leg syndrome Surgical History back surgery detached retina rt eye 1984 pilondial cystectomy Right knee medial meniscal tear, plus chondrocalcinosis of the right knee. Lung resection- rt 10/2013 Sigmoid colectomy (+30% for morbid obesity). Appendectomy 05/13/12 Resection of a segment of descending colon. Takedown splenic flexure. Colostomy. Drainage of pelvic abscess. 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 1 son(s) , 4 daughter(s) - healthy. fathers side- heart disease, hypertension, diabetes Past Med Surg Social Fam HX - Past Medical History Medical history: aortic aneurysm, arthritis, cancer, CHF, COPD, hyperlipidemia, hypertension, malignancy, renal disease (CKD stage 3), other Psychiatric history: depression - Past Surgical History Surgical History: colectomy, colostomy, other (Surgery, cataract retina in 1984 , right knee medial meniscal tear, lung resection in 2013-right lung, sigmoid colectomy, colostomy, appendectomy.)) - Social History Smoking Status: Former smoker Smokeless Tobacco Status: No Alcohol use: none Drug use: none - Family History Mother Adopted: No Living Status: Hx Family Cardiac Disorders: Yes (CHF) Hx Family Endocrine Disorder: Yes (DM) Father Adopted: No Family Member Ethnicity: Non- Living Status: Hx Family Cardiac Disorders: Yes (CHF) Hx Family Respiratory Disorders: Yes (COPD) Hx Family Cancer: No Hx Family GI Disorders: No Hx Family Endocrine Disorder: Yes (DM) Hx Family Neuromuscular Disorders: No Hx Family Neurologic Disorders: No Hx Family HEENT Disorders: No Hx Family Autoimmune Disorders: No Internal Medicine - H&P: Meds Alprazolam [Xanax] 0.5 mg PO HS PRN 10/01/14 [History] Escitalopram Oxalate [Lexapro] 10 mg PO DAILY 10/01/14 [History] Spironolactone 50 mg PO DAILY 10/05/14 [History] Indomethacin 75 mg PO DAILY PRN 11/02/15 [History] Guaifenesin [Guaifenesin ER] 1,200 mg PO BID #14 tab.er.12h 03/14/16 [Rx] LORazepam [Ativan] 0.5 mg PO Q6H PRN #30 tablet 03/15/16 [Rx] Lidocaine/Prilocaine CREAM [Emla] 1 gm TP ONCE PRN #1 tube 03/15/16 [Rx] Magic Mouthwash 10 ml PO Q4H PRN #240 ml 03/15/16 [Rx] Omeprazole [PriLOSEC] 20 mg PO DAILY #30 capsule.dr 03/15/16 [Rx] Prochlorperazine Maleate [Compazine] 10 mg PO Q6HR PRN #40 tablet 03/15/16 [Rx] Folic Acid 1 mg PO DAILY #30 tablet 03/31/16 [Rx] Ondansetron [Zofran ODT] 8 mg SL Q8H PRN #60 tab.rapdis 03/31/16 [Rx] Albuterol Sulfate [Albuterol Inhaler] 2 puff IH Q4-6H PRN #1 inhaler 04/20/16 [ Rx] HYDROcodone/Acet 5/325 mg [[place] 5-325 mg] 1 tab PO Q6H PRN #90 tab 05/02/16 [Rx ] Morphine Immed Rel [Morphine Sulfate] 15 - 30 mg PO Q4H PRN #120 tab 05/02/16 [ Rx] Crizotinib [Xalkori] 250 mg PO BID #60 capsule 05/04/16 [Rx] Fluticasone/Vilanterol [Breo Ellipta 100-25 Mcg INH] 1 puff IH DAILY #1 blst.w.dev 05/04/16 [Rx] Megestrol Acetate [Megace] 10 ml PO DAILY #300 udc 06/01/16 [Rx] Oxymetazoline [Afrin] 1 spray NS Q12HR PRN #1 bottle 06/05/16 [Rx] Magnesium Oxide [Mag-Ox] 400 mg PO DAILY #30 tablet 06/11/16 [Rx] Albuterol Neb [AccuNeb] 1.25 mg IH Q6H PRN 07/04/16 [History] Allergies No Known Allergies Allergy (Verified 05/11/16 11:03) All Systems PM: A 10-system review of systems was performed and is negative for pertinent findings except as documented above in the HPI. - Constitutional Vitals: Temp Pulse Resp BP Pulse Ox 97.9 F 112 18 127/74 94 07/05/16 00:43 07/05/16 00:43 07/05/16 00:43 07/05/16 00:43 07/05/16 00:43 PHYSICAL EXAMINATION: GENERAL: Adult male, lying in bed with no sign of distress, awake and alert, makes good eye contact HEENT: NC/AT, EOMI, PERRLA, anicteric sclera, normal conjunctiva, supple, clear nares, moist mucous membranes, clear oropharynx, central uvula RESP: transmitted sounds with occasional wheeze noted, reduced AE at the lung bases, No crackles noted CARDIO: normal heart sounds, no murmurs, no JVD, no ankle edema GI: Soft, full, no tenderness, no organomegaly felt, normal bowel sounds heard , colostomy bag in place MUSCULOSKELETAL: grossly normal movements bilaterally, no deformities noted, no calf tenderness NEUROLOGIC: CN 2-12 intact grossly. No motor/sensory deficit appreciated, PSYCHIATRY: AAO x 3, mood is fair SKIN: surgical scars noted, no rash Internal Med - H&P Results - Labs CBC & Chem 7: 07/05/16 03:47 07/05/16 03:47 - Diagnostic Studies Chest x-ray Status: image reviewed by me CT scan - head Status: image reviewed by me
[2016-07-05] MEDS: *HR* Morphine Immed Rel 30 MG TABLET PO PRN ×2 (02:00→22:12)
[2016-07-05] MEDS ORDERED: Naloxone 0.4 MG/ML INJ IVP PRN (02:03)
[2016-07-05] MEDS ORDERED: *HR* LORazepam 0.5 MG TABLET PO PRN (02:04)
[2016-07-05] MEDS ORDERED: Indomethacin 25 MG CAPSULE PO PRN (02:04)
[2016-07-05] MEDS ORDERED: Magic Mouthwash 10 ML UD Cup PO PRN (02:04)
[2016-07-05] MEDS ORDERED: Ondansetron ODT 4 MG TAB.RAPDIS SL PRN (02:04)
[2016-07-05] MEDS ORDERED: ALPRAZolam 0.5 MG TABLET PO PRN (02:04)
[2016-07-05] MEDS ORDERED: Albuterol 2.5 MG/3 ML NEBULIZER IH PRN (02:08)
[2016-07-05] MEDS: CRIZOTINIB 250 MG PO SCH ×3 (03:36→22:16)
[2016-07-05 04:46] LABS: Basophils # 0.1 K/mcL (0.0-0.2); Basophils % 0.7 %; Eosinophils # 0.2 K/mcL (0.0-0.6); Eosinophils % 1.8 %; Hematocrit 25.8 % (37.5-50.1); Hemoglobin 7.9 g/dL (12.9-16.9); Immature Granulocytes % 2.2 % (0-4); Lymphocytes # 1.2 K/mcL (0.6-4.6); Lymphocytes % 13.5 %; Mean Corpuscular HGB Conc 30.6 g/dL (31.6-35.5); Mean Corpuscular Hemoglobin 30.3 pg (28.0-33.3); Mean Corpuscular Volume 98.9 fL (83.0-100.0); Neutrophils # 6.1 K/mcL (1.6-8.9); Nucleated Red Blood Cells 0.3 /100 WBC (0); Platelet Count 168 K/mcL (140-400); Red Blood Count 2.61 M/mcL (4.19-5.50); Red Cell Distribution Width 19.7 % (11.5-14.5); Segmented Neutrophils % 69.8 %
[2016-07-05 04:57] LABS: Calcium 8.9 mg/dL (8.6-10.8); Magnesium 0.9 mg/dL (1.6-2.6); Phosphorous 3.7 mg/dL (2.3-4.7); Potassium 3.7 mEq/L (3.5-4.5)
[2016-07-05] MEDS ORDERED: Magnesium Sulfate 2 GM in D5% in Water 100 ML IVPB ONE (05:53)
[2016-07-05 06:19] LABS: % Iron Saturation 26 % (20-55); Iron 47 mcg/dL (65-175); Transferrin 131 mg/dL (174-364)
[2016-07-05 07:09] LABS: Ferritin 1971 ng/ml (22-275)
[2016-07-05] MEDS: Magnesium Oxide 400 MG TABLET PO SCH (08:33)
[2016-07-05] MEDS: Folic Acid 1 MG TABLET PO SCH (08:36)
[2016-07-05] MEDS: Megestrol Acetate 400 MG/10 ML UDC PO SCH (08:36)
--- NOTE | 2016-07-05 10:19 | Electrocardiograph Report ---
[place] [id number] Test Date: 2016-07-04 Pat Name: Darien Ricardo Department: 105 Room: 3B11 Gender: M Returned Materials Inspector: LEILA : 1950 Requested By: Marco Luevano Order Number: [id number] Reading MD: Christina Israel Measurements Intervals [place] Rate: 108 P: 35 WV: 147 QRS: 2 QRSD: 115 T: 33 QT: 335 QTc: 398 Interpretive Statements SINUS TACHYCARDIA WITH FREQUENT VENTRICULAR PREMATURE COMPLEXES LOW QRS VOLTAGE IN EXTREMITY LEADS [QRS DEFLECTION < 0.5 mV IN LIMB LEADS] POSSIBLE ANTERIOR MYOCARDIAL INFARCTION [30 ms Q WAVE IN V3/V4, OR R < 0.2 mV IN V4], OF INDETERMINATE AGE Electronically Signed On 07-05-2016 10:17:25 EDT by Christina Israel
--- NOTE | 2016-07-05 11:30 | Internal Med Progress Note ---
Date of Encounter: 07/05/16 Time of Encounter: 09:40 - Assessment and plan (1) Pneumonia Current Visit: Yes Status: Acute Assessment and plan: History of lung ca. Chest Xray showed hazy opacities in the region of the R lower lung suspicious for pneumonia or partial atelectasis. Pt has history of same in the past. Pt is getting Levaquin 750mg IV daily Pt is non-compliant with 02 at home, is not wearing it here, is maintaining sats >92%. Pt states that he cannot ambulate to bathroom from bed without GOINS Ronchi and inspiratory and expiratory wheezing heard in all post lung rowell. He remains afebrile, no tachycardia and normotensive. Continue Levaquin 02 prn to maintain sats > 92% Nebulizer treatments prn Monitor labs and vitals Qualifiers: Pneumonia type: due to unspecified organism Laterality: right Lung location: lower lobe of lung Qualified Code(s): J18.1 - Lobar pneumonia, unspecified organism (2) Obesity Current Visit: Yes Status: Chronic Assessment and plan: BMI 39.1. Chronic. Lifestyle changes. Qualifiers: Obesity type: due to excess calories Obesity severity: morbid Qualified Code(s): E66.01 - Morbid (severe) obesity due to excess calories (3) COPD (chronic obstructive pulmonary disease) Current Visit: Yes Status: Chronic Assessment and plan: No acute exacerbation. Plan as above. Qualifiers: COPD type: chronic bronchitis Chronic bronchitis type: simple Qualified Code(s): J41.0 - Simple chronic bronchitis (4) Lung cancer Current Visit: Yes Status: Chronic Assessment and plan: Sees Dr. Bailey at [facility]. He is currently not doing chemo or radiation at this time, last treatment 1 month ago. It has been held due to anemia, per pt. Follow up outpatient. Qualifiers: Laterality: right Lung location: upper lobe of lung Qualified Code(s): C34.11 - Malignant neoplasm of upper lobe, right bronchus or lung (5) Hypertension Current Visit: Yes Status: Chronic Assessment and plan: Well controlled. Continue home medicatioins. Monitor labs. Qualifiers: Hypertension type: essential hypertension Qualified Code(s): I10 - Essential (primary) hypertension (6) AQUIELS (obstructive sleep apnea) Current Visit: Yes Status: Chronic Assessment and plan: CPAP at night. (7) Anemia Current Visit: Yes Status: Chronic Assessment and plan: Most likely due to chronic disease, cancer, and chemotherapy/radiation treatments and obviously, AVERY. Transferrin low at 131, Ferritin elevated at 1971 , Iron low at 47. Will start po Iron supplementation and reevaluate. 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 States that he always get pneumonia when he gets gout. 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 Patient is sitting up beside the bed, to family members at bedside. He is currently disputing the story that was given to the emergency department on arrival. He says that he was not confused and does admit that he was drowsy. Family member at bedside states that whenever he gets pneumonia he does have a mental status change, patient does not dispute this fact. He says that he was to have a doctor's appointment yesterday and he missed it due to feeling so drowsy, he states that 's office called him twice to verify if he was coming. He said he was too drowsy to speak to them. Patient states that he has had history of this same series of events in the past. He said he began having wheezing, feeling tired, and having symptoms of gout approximately 4-5 days ago. He says that he always gets gout when he has pneumonia. He does have oxygen at home, however, he only wears it when his sats drop below 88%. He does wear CPAP at night and says that he has oxygen hooked up to that. He says that he has chemotherapy and radiation on hold at this time due to anemia. He says that he is to see who did his lobectomy and [facility] on the . At that point oncology will decide how to proceed with treatment. - Constitutional Vitals: Temp Pulse Resp BP Pulse Ox 98.0 F 90 17 110/69 952 07/05/16 10:55 07/05/16 10:55 07/05/16 10:55 07/05/16 10:55 07/05/16 10:55 General appearance: Present: cooperative, A&O X 3, morbidly obese, pleasant, answers questions appropriately - Head Head exam: Present: normal inspection - Eye Eye exam: Present: normal appearance, conjuntiva pink - ENT ENT exam: Present: mucous membranes moist, normal exam - Neck Neck exam general surgery: Present: normal inspection. Absent: lymphadenopathy , tenderness - Respiratory Respiratory exam: Present: decreased breath sounds, rhonchi, wheezes. Absent: respiratory distress - Cardiovascular Cardiovascular exam: Present: RRR, +S1, +S2. Absent: diastolic murmur, systolic murmur, tachycardia - Expanded Cardiovascular Exam Peripheral pulses: 1+: Dorsalis Pedis (L) PM, Dorsalis Pedis (R) PM - GI/Abdominal GI/Abdominal exam: Present: distended, firm, normal bowel sounds. Absent: hepatomegaly, tenderness Additional comments: abd normal for pt. - Extremities Exam Extremities exam: Present: joint swelling, normal capillary refill, normal inspection, pedal edema, warm, radial pulses palpable and symetrical. Absent: tenderness - Neurological Exam Neurological exam: Present: alert, oriented X3, no focal deficits, strengths equal and symetr throughout. Absent: facial droop, speech deficit Internal Medicine: Result - Labs CBC & Chem 7: 07/05/16 03:47 07/05/16 03:47 Labs: Short CBC 07/05/16 Range/Units 03:47 WBC 8.7 (4.3-11.1) K/mcL Hgb 7.9 L (12.9-16.9) g/dL Hct 25.8 L (37.5-50.1) % Plt Count 168 (140-400) K/mcL Neutrophils # 6.1 (1.6-8.9) K/mcL BMP 07/05/16 03:47 Sodium 142 Potassium 3.7 Chloride 113 H Carbon Dioxide 19 BUN 28 H Creatinine 1.56 H Glucose 95 Calcium 8.9 - ABG Interpretation ABG results: PT/INR, D-dimer PT 14.6 Seconds (9.4-12.1) H 07/04/16 21:19 Consult Discharge Plan - Plan Referrals: Maxine Delatorre, [employer] [Primary Care Provider] -
--- NOTE | 2016-07-05 15:27 | Electrocardiograph Report ---
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
[2016-07-05] MEDS ORDERED: Levofloxacin 750 MG/150 ML 750 MG/150 ML BAG IVPB SCH (23:00)
[2016-07-06] MEDS: *HR* Morphine Immed Rel 30 MG TABLET PO PRN ×2 (04:34→10:10)
[2016-07-06 06:26] LABS: Hematocrit 25.7 % (37.5-50.1); Hemoglobin 8.2 g/dL (12.9-16.9); Mean Corpuscular HGB Conc 31.9 g/dL (31.6-35.5); Mean Corpuscular Hemoglobin 30.6 pg (28.0-33.3); Mean Corpuscular Volume 95.9 fL (83.0-100.0); Mean Platelet Volume 10.4 fL (9.4-12.4); Nucleated Red Blood Cells 0.4 /100 WBC (0); Platelet Count 149 K/mcL (140-400); Red Blood Count 2.68 M/mcL (4.19-5.50); Red Cell Distribution Width 18.8 % (11.5-14.5)
[2016-07-06 06:41] LABS: BUN/Creatinine Ratio 16 (6-26); Blood Urea Nitrogen 21 mg/dL (8-26); Carbon Dioxide 17 mEq/L (19-29); Chloride 111 mEq/L (98-109); Glucose 77 mg/dL (70-99); Osmolality,Calculated 296 (280-300); Potassium 4.1 mEq/L (3.5-4.5); Sodium 142 mEq/L (136-145); eGFR For African Americans > 60 (> 60); eGFR For Non-African Americans 54 (> 60)
[2016-07-06 07:04] LABS: Eosinophils # 0.1 K/mcL (0.0-0.6); Lymphocytes # 0.4 K/mcL (0.6-4.6); Monocytes # 0.4 K/mcL (0.0-1.3); Neutrophils # 6.3 K/mcL (1.6-8.9); Platelet Estimate Normal (Normal)
[2016-07-06 07:40] LABS: Magnesium 1.4 mg/dL (1.6-2.6)
[2016-07-06] MEDS: Folic Acid 1 MG TABLET PO SCH (09:59)
[2016-07-06] MEDS: Magnesium Oxide 400 MG TABLET PO SCH (09:59)
[2016-07-06] MEDS: Megestrol Acetate 400 MG/10 ML UDC PO SCH (10:01)
[2016-07-06] MEDS: CRIZOTINIB 250 MG PO SCH (10:14)
[2016-07-06 11:40] VITALS: BP 115/76
--- NOTE | 2016-07-06 12:38 | Discharge Summary ---
Date of Encounter: 07/06/16 Time of Encounter: 08:15 - Discharge Diagnosis (1) Pneumonia Priority: Primary Status: Acute Comments: Patient has history of lung cancer. He has halted chemotherapy for the last month due to anemia. Chest x-ray in the emergency department showed hazy opacities in the region of the right lower lung suspicious for pneumonia or partial atelectasis. He reports that he has history of the same with some frequency. He has been getting Levaquin 750 mg IV daily. We will continue by mouth at home. He does have home O2 and is noncompliant with its use. He says he normally waits until his sats drop below 80% before he will start wearing his oxygen. He says that he will start using more now and is aware that he should start wearing it about 92%. Yesterday he reported some dyspnea on exertion. Today he says that he is better and feels that he is ready to go home. He says he does not want to stay in the hospital if he can do what we are doing at home. Lungs sound slightly better today. Rhonchi remains and expiratory wheezing in bilateral apices. He remains afebrile, no tachycardia and normotensive. He denies need for any refills on nebulizers or inhalers at home. Qualifiers: Pneumonia type: due to unspecified organism Laterality: right Lung location: lower lobe of lung Qualified Code(s): J18.1 - Lobar pneumonia, unspecified organism (2) Obesity Priority: Secondary Status: Chronic Comments: Chronic. Lifestyle changes. Qualifiers: Obesity type: due to excess calories Obesity severity: morbid Qualified Code(s): E66.01 - Morbid (severe) obesity due to excess calories (3) COPD (chronic obstructive pulmonary disease) Priority: Secondary Status: Chronic Comments: No acute exacerbation. Plan remains as above. Does not need refills on rx for inhalers or nebulizers. Agrees to use 02 more frequently. Levaquin 750mg po for home. Qualifiers: COPD type: chronic bronchitis Chronic bronchitis type: simple Qualified Code(s): J41.0 - Simple chronic bronchitis (4) Lung cancer Priority: Secondary Status: Chronic Comments: Last chemoradiation treatment was one month ago. He states that his been held due to his anemia. He will follow up outpatient. Qualifiers: Laterality: right Lung location: upper lobe of lung Qualified Code(s): C34.11 - Malignant neoplasm of upper lobe, right bronchus or lung (5) Hypertension Priority: Secondary Status: Chronic Comments: Chronic. well CONTROLLED. Continue home medications. Qualifiers: Hypertension type: essential hypertension Qualified Code(s): I10 - Essential (primary) hypertension (6) AQUILES (obstructive sleep apnea) Priority: Secondary Status: Chronic Comments: Continue CPAP at home. (7) Anemia Priority: Secondary Status: Chronic Comments: Most likely due to chronic disease and chemotherapy/radiation treatments. Iron low at 47. Para 10 1971, transferrin low at 131. Discussed with hospitalist, iron supplementation will not be beneficial. Patient to follow-up with oncology as scheduled. 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 Patient states that some better today. Continue home medication. 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, unspecified ankle and foot, without tophus (tophi) - Discharge Medications Prescriptions: Levofloxacin [Levaquin] 750 mg PO DAILY #7 tablet Home Medications: Alprazolam [Xanax] 0.5 mg PO HS PRN 10/01/14 [History] Escitalopram Oxalate [Lexapro] 10 mg PO DAILY 10/01/14 [History] Spironolactone 50 mg PO DAILY 10/05/14 [History] Indomethacin 75 mg PO DAILY PRN 11/02/15 [History] Guaifenesin [Guaifenesin ER] 1,200 mg PO BID #14 tab.er.12h 03/14/16 [Rx] LORazepam [Ativan] 0.5 mg PO Q6H PRN #30 tablet 03/15/16 [Rx] Lidocaine/Prilocaine CREAM [Emla] 1 gm TP ONCE PRN #1 tube 03/15/16 [Rx] Magic Mouthwash 10 ml PO Q4H PRN #240 ml 03/15/16 [Rx] Omeprazole [PriLOSEC] 20 mg PO DAILY #30 capsule. 03/15/16 [Rx] Prochlorperazine Maleate [Compazine] 10 mg PO Q6HR PRN #40 tablet 03/15/16 [Rx] Folic Acid 1 mg PO DAILY #30 tablet 03/31/16 [Rx] Ondansetron [Zofran ODT] 8 mg SL Q8H PRN #60 tab.rapdis 03/31/16 [Rx] Albuterol Sulfate [Albuterol Inhaler] 2 puff IH Q4-6H PRN #1 inhaler 04/20/16 [ Rx] HYDROcodone/Acet 5/325 mg [[place] 5-325 mg] 1 tab PO Q6H PRN #90 tab 05/02/16 [Rx ] Morphine Immed Rel [Morphine Sulfate] 15 - 30 mg PO Q4H PRN #120 tab 05/02/16 [ Rx] Crizotinib [Xalkori] 250 mg PO BID #60 capsule 05/04/16 [Rx] Fluticasone/Vilanterol [Breo Ellipta 100-25 Mcg INH] 1 puff IH DAILY #1 blst.w.dev 05/04/16 [Rx] Megestrol Acetate [Megace] 10 ml PO DAILY #300 udc 06/01/16 [Rx] Oxymetazoline [Afrin] 1 spray NS Q12HR PRN #1 bottle 06/05/16 [Rx] Magnesium Oxide [Mag-Ox] 400 mg PO DAILY #30 tablet 06/11/16 [Rx] Albuterol Neb [AccuNeb] 1.25 mg IH Q6H PRN 07/04/16 [History] Albuterol Neb [Proventil Neb] 2.5 mg IH [id number] PRN #0 inhsol 07/06/16 [Rx] Levofloxacin [Levaquin] 750 mg PO DAILY #7 tablet 07/06/16 [Rx] Allergies/Adverse Reactions: Allergies No Known Allergies Allergy (Verified 05/11/16 11:03) Procedures/tests Complete & Pending: Procedures Performed prior 72 hours Category Date Time Status EKG [ECG 12 lead ECG] [ECG] AM 0600 Y 07/05/16 06:00 Completed Date of admission: 07/04/16 23:58 Primary care physician: Maxine Delatorre CNP Consults: 07/05/16 00:54 Consult to [employer] Services [CONS] Routine Reason for SW Consult: Discharge planning, needs at home Discharging clinician: Cortney Gibson Anticipated date of discharge: 07/06/16 - Patient Status Disposition: Home, Self-Care Condition: Good Functional capacity at discharge: independent ambulation Overall status at discharge: patient is progressing back to baseline - Discharge Instructions Follow Up With: Maxine Delatorre CNP [Primary Care Provider] - Additional Instructions: Please take your home medications as you normally would Please start taking your Levaquin tonight and take it daily until it is gone. Wear your oxygen as needed Return to the ER as needed for any problems, concerns, or for worsening condition. You have an appointment with your PCP on July 12 at 1:25 pm. - Diet and Activity Activity: increase activity as tolerated, wear oxygen at all times Diet: low fat, low cholesterol Hospital course: Mr. Ricardo is a 65 year old male with past medical history of lung cancer, COPD, hypertension, gout, anemia, obesity, pneumonia. Patient presented to the emergency department with his daughter with concern for confusion. He did not answer his phone at home, daughter became concerned and went to his house noted he was confused. She said that he was having visual hallucinations and that he was naked on the couch in his colostomy bag had fallen off and there was stool everywhere. Apparently this is uncharacteristic for him. The patient denies this story and says that he was naked intentionally and that he was having diarrhea which filled his colostomy bag and made it too heavy and it fell off. He was appropriate and answered all questions correctly during my evaluation. His family states that he does have mental status changes frequently when he has pneumonia. He denies any history of fever but he did have a nonproductive cough. Chest x-ray showed hazy opacities right lower lung suspicious for pneumonia. He does have a history of lung cancer and COPD. He has home O2 that he is not compliant with wearing unless his sats drop below 88%. He did have the CPAP at night that does have oxygen. He agrees that he needs to be more compliant. EKG showed normal sinus rhythm with occasional PVCs rate 97, MN interval 157, QTC 426. Troponin was negative. Patient has rhonchi throughout posteriorly, expiratory wheezing in bilateral apices this morning. Yesterday he had dyspnea on exertion today he states that it is better than it was yesterday. He says that he wants to go home and that he can do everything were doing at home. He is not requiring supplemental oxygen to maintain his sats. He denies need for any refills on inhalers or nebulizers at home. Patient also has chronic anemia. Hemoglobin julio to 8.2 today. Was 7.9 yesterday. This is baseline for patient. He has stopped chemotherapy about a month ago due to his anemia. He said he will follow-up with oncology as scheduled. Patient already has a follow-up appointment with his primary care provider on July 12 at 1:25pm. Labs are stable and within normal limits. Patient is appropriate and stable for discharge. - Time Spent with Patient Total time spent providing and/or coordinating discharge services: Less than 30 minutes - Constitutional Vitals: Temp Pulse Resp BP Pulse Ox 98.5 F 96 20 115/76 91 07/06/16 11:40 07/06/16 11:40 07/06/16 11:40 07/06/16 11:40 07/06/16 11:40 General appearance: Present: cooperative, A&O X 3, morbidly obese, pleasant, answers questions appropriately - Head Head exam: Present: normal inspection - Eye Eye exam: Present: normal appearance, conjuntiva pink - ENT ENT exam: Present: mucous membranes moist, normal exam, normal oropharynx - Neck Neck exam general surgery: Present: normal inspection. Absent: lymphadenopathy , tenderness - Respiratory Respiratory exam: Present: rhonchi, wheezes. Absent: accessory muscle use, chest wall tenderness, rales, respiratory distress, stridor, tachypnea - Cardiovascular Cardiovascular exam: Present: RRR, +S1, +S2. Absent: diastolic murmur, systolic murmur - GI/Abdominal GI/Abdominal exam: Present: normal bowel sounds, soft. Absent: distended, hepatomegaly, tenderness - Extremities Exam Extremities exam: Present: normal capillary refill, warm, radial pulses palpable and symetrical. Absent: pedal edema, tenderness - Neurological Exam Neurological exam: Present: alert, oriented X3, no focal deficits, strengths equal and symetr throughout. Absent: facial droop
== END 2016-07-06 14:20 | disposition home or self-care (01) ==
LOC: EMEROO 20:01 → 3BNU 20:01
PROVIDERS: ADMIT Internal Medicine; ATTEND Registered Nurse

== ENCOUNTER 2017-12-17 00:42 | Inpatient (IN) ==
[2017-12-17] MEDS ORDERED: Isovue-370 500 ML INFUS..BTL IV ONE (01:16)
[2017-12-17 02:25] LABS: Basophils # 0.1 K/mcL (0.0-0.2); Basophils % 0.7 %; Eosinophils # 0.1 K/mcL (0.0-0.6); Eosinophils % 0.4 %; Hematocrit 45.4 % (37.5-50.1); Hemoglobin 14.6 g/dL (12.9-16.9); Immature Granulocytes % 0.6 % (0-4); Lymphocytes % 8.3 %; Mean Corpuscular HGB Conc 32.2 g/dL (31.6-35.5); Mean Corpuscular Hemoglobin 30.5 pg (28.0-33.3); Mean Corpuscular Volume 94.8 fL (83.0-100.0); Mean Platelet Volume 10.9 fL (9.4-12.4); Monocytes # 0.8 K/mcL (0.0-1.3); Monocytes % 6.9 %; Neutrophils # 10.1 K/mcL (1.6-8.9); Platelet Count 136 K/mcL (140-400); Red Blood Count 4.79 M/mcL (4.19-5.50); Red Cell Distribution Width 15.3 % (11.5-14.5); Segmented Neutrophils % 83.1 %
[2017-12-17 02:36] LABS: INR 1.2; Prothrombin Time 13.3 Seconds (9.4-12.1)
[2017-12-17 02:58] LABS: Calcium 9.2 mg/dL (8.6-10.3)
[2017-12-17 03:05] LABS: Troponin I 0.07 ng/mL (< 0.04)
[2017-12-17] MEDS ORDERED: Aspirin 81 MG TAB.CHEW PO ONE (04:05)
[2017-12-17 05:51] LABS: Bilirubin,Urine Negative (Negative); Blood,Urine Negative (Negative); Clarity,Urine Clear (Clear); Color,Urine Yellow (Yellow); Glucose,Urine (UA) Normal (Normal); Ketones,Urine Negative (Negative); Leukocyte Esterase,Urine Negative (Negative); Nitrite,Urine Negative (Negative); PH,Urine 5.5 pH Units (5.0-8.0); Protein,Urine Negative (Neg-Trace); Urobilinogen,Urine Normal (Normal)
[2017-12-17] MEDS ORDERED: 0.9 % Sodium Chloride 1,000 ML IVC ONE (06:07)
--- NOTE | 2017-12-17 06:12 | Emergency Department Note ---
Disposition Clinical Impression: Elevated troponin, Weakness, Dehydration Disposition: Admitted As Inpatient Condition: Good Referrals: Maxine Delatorre CNP [Primary Care Provider] - Forms: ED Satisfaction Letter Time of Disposition: 06:12 Dizziness HPI - General Chief Complaint: ED Dizziness Stated Complaint: Dizziness Time Seen by Provider: 12/17/17 00:50 Source: patient, EMS Mode of arrival: EMS Limitations: no limitations Nursing Notes Reviewed: Yes Vital Signs Reviewed: Yes - History of Present Illness HPI Narrative: Patient presents to the ED if the chief complaint of dizziness. States he just has not felt well today. As far rundown. Subjective fever and chills. No chest pain or shortness breath. Denies any abdominal pain. Does have a history of a AAA as well. Has a colostomy due to perforated diverticulitis. States that those been stable. No increased ostomy output. No rashes. He denies any cough as well. States he just feels like he is going to pass out. - Related Data Home Medications Medication Instructions Recorded Confirmed Indomethacin 75 mg PO DAILY PRN 11/02/15 12/12/17 Nivolumab [Opdivo] 100 mg IV QMONTH 10/22/17 12/12/17 Terbinafine [Lamisil At] 12 gm TP AD 10/22/17 12/12/17 Previous Rx's Medication Instructions Recorded Lidocaine/Prilocaine CREAM [Emla] 1 gm TP ONCE PRN #1 tube 03/15/16 Ondansetron [Zofran ODT] 8 mg SL Q8H PRN #60 tab.rapdis 03/31/16 Albuterol Sulfate [Albuterol 2 puff IH Q4-6H PRN #1 inhaler 04/20/16 Inhaler] Levothyroxine [Synthroid] 1 tab PO DAILY #30 tablet 08/09/17 Pregabalin [Lyrica] 50 mg PO BID 30 Days #60 capsule 11/14/17 Morphine Immed Rel [Morphine 15 - 30 mg PO Q4HR PRN 10 Days 11/22/17 Sulfate] #120 tab Morphine Sulfate SR (12 HR) [MS 1 tab PO Q12HR 30 Days #60 tab 11/22/17 Contin] Amoxicillin/Clavulanate [Augmentin] 1 tab PO BID #10 tablet 12/12/17 predniSONE [PredniSONE] 1 tab PO AD #9 tablet 12/12/17 Allergies Allergy/AdvReac Type Severity Reaction Status Date / Time No Known Allergies Allergy Verified 12/12/17 13:35 Review of Systems: As reviewed in the HPI. All other systems reviewed are negative or normal. Past Medical History - Past Medical History Attestation: Yes The following information was validated with the patient. Source: patient Medical history: Reports: aortic aneurysm, arthritis, cancer, CHF, COPD, hyperlipidemia, hypertension, malignancy, renal disease, other Surgical history: Reports: appendectomy, colectomy, colostomy, other Psychiatric history: Reports: depression - Social History Smoking Status: Former smoker Smokeless Tobacco Status: No (Former) Alcohol use: Reports: none Drug use: Reports: none Physical Exam CONSTITUTIONAL: [chronically ill appearing, alert and in no acute distress] EYES: [EOMI, clear conjunctiva, PERRLA] HENT: [Normocephalic, atraumatic, dry mucus membranes, normal oropharynx] NECK: [normal inspection, full ROM, trachea midline, no obvious swelling] PULMONARY: [normal lung sounds bilaterally, normal chest rise and fall, no respiratory distress or stridor, no wheezes, no rales, no rhonchi CARDIOVASCULAR: [regular rate, regular rhythm, normal heart sounds, no murmurs, distal extremities are warm and well perfused] GASTROINSTESTINAL: [soft, non-tender, non-rigid, baseline distended, no guarding, no rebound, normal bowel sounds, ostomy pink/viable/with expected output] GENITOURINARY/RECTAL: [deferred] NEUROLOGIC: [Alert, oriented x3, normal speech, moves all extremities] EXTREMITIES: [Normal inspection, full ROM, no tenderness, no pedal edema, normal capillary refill] MUSCULOSKELETAL: [no gross deformities, atraumatic] SKIN: [No cyanosis, no diaphoresis, normal color, warm, no rash] PSYCHIATRIC: [normal mood and affect] - General Limitations: no limitations General appearance: alert, in no apparent distress Course Course Narrative: Patient presenting with generalized weakness. Labs look like he is dehydrated with a mild kidney injury. There was a significant delay in the patient's care. Due to the inability to get a urine sample despite ordering a straight catheter. His lactic acid is normal. He has a mild elevated troponin, which she has had in the past, but was normal at last check. Not having any chest pain. His EKG is unremarkable. Do not think that this is an ACS. We will admit him to the hospital for rehydration and troponin trending. Patient agreeable with plan Vital Signs Temperature 100.8 F H 12/17/17 00:49 Pulse Rate 104 12/17/17 00:49 Respiratory Rate 20 12/17/17 00:49 Blood Pressure 118/79 12/17/17 00:49 O2 Sat by Pulse Oximetry 94 12/17/17 00:49 Temperature 100.8 F H 12/17/17 00:49 Pulse Rate 99 12/17/17 05:07 Respiratory Rate 20 12/17/17 05:07 Blood Pressure 120/67 12/17/17 05:07 O2 Sat by Pulse Oximetry 95 12/17/17 05:07 Oxygen Delivery Oxygen Delivery Nasal Cannula Dizziness - Medical Records Medical records reviewed: Yes I reviewed the patient's medical records. - Lab Data Lab results reviewed: Yes I reviewed the patient's lab results. Result diagrams: 12/17/17 01:54 12/17/17 01:54 Lab Results 12/17/17 12/17/17 12/17/17 Range/Units 01:54 01:54 01:54 WBC 12.1 H (4.3-11.1) K/mcL RBC 4.79 (4.19-5.50) M/mcL Hgb 14.6 (12.9-16.9) g/dL Hct 45.4 (37.5-50.1) % MCV 94.8 (83.0-100.0) fL MCH 30.5 (28.0-33.3) pg MCHC 32.2 (31.6-35.5) g/dL RDW 15.3 H (11.5-14.5) % Plt Count 136 L (140-400) K/mcL MPV 10.9 (9.4-12.4) fL Immature Gran % 0.6 (0-4) % Seg Neutrophils % 83.1 % Lymphocytes % 8.3 % Monocytes % 6.9 % Eosinophils % 0.4 % Basophils % 0.7 % Neutrophils # 10.1 H (1.6-8.9) K/mcL Lymphocytes # 1.0 (0.6-4.6) K/mcL Monocytes # 0.8 (0.0-1.3) K/mcL Eosinophils # 0.1 (0.0-0.6) K/mcL Basophils # 0.1 (0.0-0.2) K/mcL PT 13.3 H (9.4-12.1) Seconds INR 1.2 Sodium 139 (136-145) mEq/L Potassium 5.0 (3.5-5.1) mEq/L Chloride 105 (98-107) mEq/L Carbon Dioxide 28 (23-29) mEq/L BUN 22 (8-23) mg/dL Creatinine 1.53 H (0.70-1.30) mg/dL Est GFR ( Amer) 56 L (> 60) Est GFR (Non-Af Amer) 46 L (> 60) BUN/Creatinine Ratio 14 (6-26) Glucose 118 H (70-105) mg/dL Calculated Osmolality 292 (280-300) Lactic Acid (0.5-2.2) mmol/L Calcium 9.2 (8.6-10.3) mg/dL Troponin I 0.07 H* (< 0.04) ng/mL Urine Color (Yellow) Urine Clarity (Clear) Urine pH (5.0-8.0) pH Units Ur Specific [place] (1.010-1.025) Urine Protein (Neg-Trace) mg/dL Urine Glucose (UA) (Normal) mg/dL Urine Ketones (Negative) mg/dL Urine Blood (Negative) Urine Nitrite (Negative) Urine Bilirubin (Negative) Urine Urobilinogen (Normal) mg/dL Ur Leukocyte Esterase (Negative) Ur Culture Indicated? (NO) 12/17/17 12/17/17 Range/Units 01:54 05:38 WBC (4.3-11.1) K/mcL RBC (4.19-5.50) M/mcL Hgb (12.9-16.9) g/dL Hct (37.5-50.1) % MCV (83.0-100.0) fL MCH (28.0-33.3) pg MCHC (31.6-35.5) g/dL RDW (11.5-14.5) % Plt Count (140-400) K/mcL MPV (9.4-12.4) fL Immature Gran % (0-4) % Seg Neutrophils % % Lymphocytes % % Monocytes % % Eosinophils % % Basophils % % Neutrophils # (1.6-8.9) K/mcL Lymphocytes # (0.6-4.6) K/mcL Monocytes # (0.0-1.3) K/mcL Eosinophils # (0.0-0.6) K/mcL Basophils # (0.0-0.2) K/mcL PT (9.4-12.1) Seconds INR Sodium (136-145) mEq/L Potassium (3.5-5.1) mEq/L Chloride (98-107) mEq/L Carbon Dioxide (23-29) mEq/L BUN (8-23) mg/dL Creatinine (0.70-1.30) mg/dL Est GFR ( Amer) (> 60) Est GFR (Non-Af Amer) (> 60) BUN/Creatinine Ratio (6-26) Glucose (70-105) mg/dL Calculated Osmolality (280-300) Lactic Acid 0.8 (0.5-2.2) mmol/L Calcium (8.6-10.3) mg/dL Troponin I (< 0.04) ng/mL Urine Color Yellow (Yellow) Urine Clarity Clear (Clear) Urine pH 5.5 (5.0-8.0) pH Units Ur Specific [place] 1.030 H (1.010-1.025) Urine Protein Negative (Neg-Trace) mg/dL Urine Glucose (UA) Normal (Normal) mg/dL Urine Ketones Negative (Negative) mg/dL Urine Blood Negative (Negative) Urine Nitrite Negative (Negative) Urine Bilirubin Negative (Negative) Urine Urobilinogen Normal (Normal) mg/dL Ur Leukocyte Esterase Negative (Negative) Ur Culture Indicated? NO (NO) - Radiology Data Radiology results reviewed: Yes I reviewed the patient's radiology results. - EKG Data EKG attestation: Yes I reviewed and interpreted this EKG. EKG results narrative: Sinus tach, rate 103, normal axis, normal intervals, no acute ischemic change. Attestation Statement - Attestation Attestation: I examined this patient and my medical decision-making was reviewed with the Resident Physician. I agree with the documented findings, disposition and lucia tment plan as described except to the extent set forth below. Findings consistent with dizziness. Also has elevated cardiac biomarkers. No chest pain. Of note there is findings of fever. CT scan of the head shows no acute findings, CT of the abdomen and pelvis shows no acute findings. He does have a colostomy. Additionally chest x-ray is negative. We will admit for further management workup of fever in the setting of dizziness. No signs of meningismus on examination.
--- NOTE | 2017-12-17 07:42 | Internal Med History&Physical ---
Date of Encounter: 12/17/17 Time of Encounter: 07:30 Internal Medicine - H&P: HPI Chief complaint: lightheadedness Admitted From: Home History of present illness: Mr. Ricardo is a 67 year old male pmhx aortic aneurysm, primary lung adenocarcinoma being followed by Dr Lares on nivolumab, left calf ulcer being followed by wound clinic, CHF, COPD, hyperlipidemia, hypertension, malignancy, renal disease, hx perforated diverticuli with colostomy presented with dizziness. He reported lightheadedness worse over the ocurse of the day yesterday. Gradual onset, no precipitating factor, no associated dizziness, vision changes, speech changes, numbness/tingling, weakness or paralysis. No assoicated chest pain, pressure, palpitations or sob. He admits to usually feeling fatgued after monthly nivolumab dosing, and that his creat tends to increase, but he has not had lightheadedness belfore. Last dose reproted by pt to be 12/12/17. Denies dysuria, hematuria, increased freq or hesitancy. He has had no changes in ostomy output, n/v. stool is watery and at baseline currently. ct a/p obtained in ed. pt denies he has had any abd pain. Admits to fevers and chills subjectively at home. No myalgias. Also noting he feels as if he is having mem ory problems but denies confusion. States he has been eating and drinking at his baseline without difficulty. ED course revealed temp 100.8, wbc 12.1, UA neg, bl cxs pending collection CT a/p stable lung and adrenal nodules, large abd ventral hernia containing bowel loops without acute hernia complication, no acute abnormalities. CT head no acute IC findings. Past Med Surg Social Fam HX - Past Medical History Medical history: aortic aneurysm, arthritis, cancer, CHF, COPD, hyperlipidemia, hypertension, malignancy, renal disease, other Additional medical history: Stage 4 lung with mets to other lung< Gout, Sleep apnea, Obesity, ED, Depression, Carpal Tunnel, insomnia, fatigue, bronchitis, RLS, insomnia Psychiatric history: depression - Past Surgical History Surgical History: appendectomy, colectomy, colostomy, other Additional surgical history: Back Sx, Pilonidal cystectomy, Detached retina, Lung resection, rt-11/09, Sigmoid colectomy, - Social History Smoking Status: Former smoker Smokeless Tobacco Status: No (Former) Alcohol use: none Drug use: none - Family History Mother Adopted: No Living Status: Hx Family Cardiac Disorders: Yes (CHF) Hx Family Respiratory Disorders: No Hx Family Cancer: No Hx Family GI Disorders: No Hx Family Endocrine Disorder: Yes (DM) Hx Family Neuromuscular Disorders: No Hx Family Neurologic Disorders: No Hx Family HEENT Disorders: No Hx Family Autoimmune Disorders: No Father Adopted: No Family Member Ethnicity: Non- Living Status: Hx Family Cardiac Disorders: Yes (CHF) Hx Family Respiratory Disorders: Yes (COPD) Hx Family Cancer: No Hx Family GI Disorders: No Hx Family Endocrine Disorder: Yes (DM) Hx Family Neuromuscular Disorders: No Hx Family Neurologic Disorders: No Hx Family HEENT Disorders: No Hx Family Autoimmune Disorders: No Internal Medicine - H&P: Meds Indomethacin 75 mg PO DAILY PRN 11/02/15 [History] Lidocaine/Prilocaine CREAM [Emla] 1 gm TP ONCE PRN #1 tube 03/15/16 [Rx] Ondansetron [Zofran ODT] 8 mg SL Q8H PRN #60 tab.rapdis 03/31/16 [Rx] Albuterol Sulfate [Albuterol Inhaler] 2 puff IH Q4-6H PRN #1 inhaler 04/20/16 [Rx] Levothyroxine [Synthroid] 1 tab PO DAILY #30 tablet 08/09/17 [Rx] Nivolumab [Opdivo] 100 mg IV QMONTH 10/22/17 [History] Terbinafine [Lamisil At] 12 gm TP AD 10/22/17 [History] Pregabalin [Lyrica] 50 mg PO BID 30 Days #60 capsule 11/14/17 [Rx] Morphine Immed Rel [Morphine Sulfate] 15 - 30 mg PO Q4HR PRN 10 Days #120 tab 11/22/17 [Rx] Morphine Sulfate SR (12 HR) [MS Contin] 1 tab PO Q12HR 30 Days #60 tab 11/22/17 [Rx] Amoxicillin/Clavulanate [Augmentin] 1 tab PO BID #10 tablet 12/12/17 [Rx] predniSONE [PredniSONE] 1 tab PO AD #9 tablet 12/12/17 [Rx] Allergy/AdvReac Type Severity Reaction Status Date / Time No Known Allergies Allergy Verified 12/12/17 13:35 All Systems PM: A 10-system review of systems was performed and is negative for pertinent findings except as documented above in the HPI. - Constitutional Vitals: Temp Pulse Resp BP Pulse Ox 100.8 F H 99 20 120/67 95 12/17/17 00:49 12/17/17 05:07 12/17/17 06:43 12/17/17 06:43 12/17/17 05:07 Exam: General: awake, alert, appears stated age, obese HEENT:EOM intact, pupils equal, round, moist mucus membranes Neck: supple, trachea midline Cardiovascular:regular rate and rhythm, normal S1 & S2, murmurs . no pitting lower extremity edema Lungs:s/p RU lobectomy, + exp wheezing throughout, no crackles. Normal resp iratory effort on o2 nc Abdomen:Soft, non-tender, non-distended, no rigidity, + bowel sounds, opaque ostomy bag and stool cannot be visualized Neurological: AAOx3, CN grossly intact, no focal deficits strength 5/5 throughout, sensation to lt touch intact throughout, no dysarthria or aphasia Skin:Normal color, no rash, no pallor, no jaundice Internal Med - H&P Results - Labs CBC & Chem 7: 12/17/17 01:54 12/17/17 01:54 Labs: Short CBC 12/17/17 Range/Units 01:54 WBC 12.1 H (4.3-11.1) K/mcL Hgb 14.6 (12.9-16.9) g/dL Hct 45.4 (37.5-50.1) % Plt Count 136 L (140-400) K/mcL Neutrophils # 10.1 H (1.6-8.9) K/mcL BMP 12/17/17 01:54 Sodium 139 Potassium 5.0 Chloride 105 Carbon Dioxide 28 BUN 22 Creatinine 1.53 H Glucose 118 H Calcium 9.2 Cardiac Enzymes 12/17/17 12/17/17 Range/Units 01:54 05:31 Troponin I 0.07 H* 0.08 H* (< 0.04) ng/mL Urine 12/17/17 Range/Units 05:38 Urine Color Yellow (Yellow) Urine Clarity Clear (Clear) Urine pH 5.5 (5.0-8.0) pH Units Ur Specific [place] 1.030 H (1.010-1.025) Urine Protein Negative (Neg-Trace) mg/dL Urine Glucose (UA) Normal (Normal) mg/dL - Impressions ITS Impressions Head CT 12/17/17 01:06 IMPRESSION: No acute intracranial abnormality. D/ / Heather Sheridan MD / Heather Sheridan MD Interpreting Provider: Heather Sheridan MD Abdomen/Pelvis CT 12/17/17 01:16 IMPRESSION: Stable postsurgical changes of the right lung base with volume loss and scarring. Stable noncalcified pulmonary nodules in both lung bases seen on recent prior chest CT. Stable 9 mm right adrenal nodule unchanged since at least 2016. Stable postsurgical changes from prior colectomy and colostomy with large peristomal hernia. No acute hernia complication. Large ventral abdominal wall hernias containing loops of bowel without acute hernia complication. No significant change since prior. No acute abnormality in the abdomen or pelvis to explain patient's symptoms of acute abdominal pain. D/ / Jassi Barksdale MD / Jassi Barksdale MD Interpreting Provider: Jassi Barksdale MD - Assessment and plan (1) Lightheaded Current Visit: Yes Status: Acute Assessment and plan: lightheadedness, gradual in onset, unchanged since began , no associated neuro deficits May be dehydration given barbara, related to med s/e no sign of focal neuro deficits on hpi and physical exam trop elevation work up as below, infectious work up as below -neuro checks, ivf, started asa and will check a1c, tsh, lipid panel, flu swab -discussed with oncology will get MRI to rule out mets and less likely cva, will consider neurology eval if abnormal MRI -monitor bp trends -fall precautions, pt/ot -check orthostats (2) Fever Current Visit: Yes Status: Acute Assessment and plan: Temp 100.8 on admit with leukocytosis 12.1, uk etiology afebrile since admit Ruling out infectious etiology -cxr pending -ct a/p no acute abnormaility in abd/pelvis -UA unremarkable -bl cxs pending -no abx at this time as no identifiable source of infection on ros and exam, work up this far negative, will add abx if clinical picutrure changes or work up pending warrants -monitor for fever Qualifiers: Fever type: unspecified Qualified Code(s): R50.9 - Fever, unspecified (3) Elevated troponin Current Visit: Yes Status: Acute Assessment and plan: trop 0.07 and 0.08 without any symptoms ekg without acute ischemic changes he has history of elevated trops in past, more recently 0.01s this may be related to his kidney function but will rule out acs as cause of presenting symptoms -trend trop, check echo, if any abnormalities will consult cards -asa ordered -check lipid panel, a1c (4) Adenocarcinoma of lung Current Visit: No Status: Chronic Assessment and plan: Saw Dr Mast in office last week -i have contacted oncology and they will see him in consultation today -he is not on home o2 during the day but does wear it nocturnally Qualifiers: Laterality: right Qualified Code(s): C34.91 - Malignant neoplasm of unspecified part of right bronchus or lung (5) [id number] kidney injury Current Visit: Yes Status: Acute Assessment and plan: Creat baseline in last year based on available records appears to be about 1., his baseline CKD stage is unknown Creat on admit 1.53, UA neg for infection possibly dehydrated, IVFs ordered, monitor output, avoid nephrotoxic agents, renally dose meds may be related to recent nivolumab-onc consulted and following -cont to monitor Qualifiers: Acute renal failure type: unspecified Chronic kidney disease stage: unspecified stage Qualified Code(s): N17.9 - Acute kidney failure, unspecified; N18.9 - Chronic kidney disease, unspecified (6) Thrombocytopenia Current Visit: No Status: Chronic Assessment and plan: chronic, appears at baseline no active bleeding, cont to monitor (7) DVT prophylaxis Current Visit: No Status: Acute Assessment and plan: hep sq given barbara on ckd (8) CHF (congestive heart failure) Current Visit: Yes Status: Chronic Assessment and plan: Hx CHF, not in exacerbation, type uknown, no prior echo on record -echo as above -he is not on a chf regimen/diuretic at home Qualifiers: Heart failure type: unspecified Heart failure chronicity: chronic Qualified Code(s): I50.9 - Heart failure, unspecified - Time Spent With Patient Total time spent is greater than 50% in coordination of care (as documented) at patient's floor/unit and/or counseling patient: 25 - 35 minutes
[2017-12-17] MEDS ORDERED: Naloxone 0.4 MG/ML INJ IVP PRN (07:43)
[2017-12-17] MEDS ORDERED: Ipratropium/Albuterol Neb 3 ML IH PRN (08:04)
[2017-12-17] MEDS: 0.9 % Sodium Chloride 1,000 ML IVC SCH (08:36)
[2017-12-17] MEDS: Aspirin Enteric Coated 81 MG Tablet PO SCH (09:38)
[2017-12-17] MEDS: *HR* Heparin 5,000 UNIT/ML VIAL SQ SCH (14:00)
--- NOTE | 2017-12-17 14:39 | Oncology Inp Consult Note ---
<EnriqueDarling L - Last Filed: 12/17/17 16:25> Date of Encounter: 12/17/17 Time of Encounter: 13:00 Assessment and Plan (1) Adenocarcinoma of lung Status: Chronic Assessment and plan: Recurrent non-small cell lung cancer (adenocarcinoma), currently on second line of treatment with Nivolumab 480 mg IV Q4 weeks since 07/26/2017 (previously on Nivolumab 240 mg IV Q2 weeks initiated 01/08/2017). Last nivolumab treatment was 12/12/2017. Unless we find clear etiology for his symptoms which led to presentation (as discussed below), will likely considering changing his Nivolumab back to the Q2 weeks dosing His symptoms may be secondary to poor tolerance of the monthly dosing Plan to resume treatment on an outpatient basis Qualifiers: Laterality: right Qualified Code(s): C34.91 - Malignant neoplasm of unspecified part of right bronchus or lung (2) Fever Status: Acute Assessment and plan: TMAX 100.8 past 2 hours Etiology unclear UA-Negative CXR-Pending Influenza swab-negative Blood cx-NGTD Mild leukocytosis likely secondary to steroid (oral pred and kenalog injection by derm) Qualifiers: Fever type: due to other condition Qualified Code(s): R50.81 - Fever presenting with conditions classified elsewhere (3) Lightheaded Status: Acute Assessment and plan: Patient reports lightheadedness, H/A, blurred vision and difficulty with memory recall which led to his admission Patient and family report change from baseline Mild improvement since admission overnight CT of the head and MRI brain (still in prelim reading) is negative for acute abnormality or intracranial metastatic disease No medications which may be of cause No electrolyte abnormalities to explain encephalopathy No infectious etiology although patient has bee febrile with TMAX 100.8 Mild JORY, Creat 1.53 Plan: Check ammonia Check for immune mediated etiology secondary to immunotherapy: random cortisol, 24 urine cortisol, TSH, B12, testosterone His symptoms may be secondary to poor tolerance of monthly dosing, in which we may resume Q2week dosing following d/c - Data of Consult Patient: known to practice within the last 3 years Consult date: 12/17/17 Requesting Physician: Kalyn Nixon Primary Care Provider: Maxine Delatorre CNP - Consult Narrative Reason for consult: Adenocarcinoma of the lung History of present illness: Mr. Ricardo is a 67 year old male with recurrent non-small cell lung cancer (adenocarcinoma), currently on second line of treatment with Nivolumab 480 mg IV Q4 weeks since 07/26/2017 (previously on Nivolumab 240 mg IV Q2 weeks initiated 01/08/2017). Last nivolumab treatment was 12/12/2017. He appears to have evidence of several immune mediated side effects including mild hypothyroidism, B12 deficiency, and oral/skin lesions. His oral lesions have been biopsied which revealed hyperkeratosis, negative for malignancy and thought to be secondary to his immunotherapy. More recently he had the development of multiple skin lesions and had a consult with Dr. Cast. She clinically wanted to rule out pyoderma gangrenosum vs lichen simplex chronicus and had treated a small ulcerated spot on his left hand with kenalog injection to see if there is improvement. He has also recently consulted with his PCP for concern for penile discharge, Chlamydia and Gonorrhea has resulted negative, considering referral to urology. He denies any painful lesions, hematuria or dysuria. He presented to [facility] ER for report of dizziness. Patient reports that this was worsening over the weekend, no precipitating factors and would occur at rest, with position changes or with movement. He also reports H/A and blurry vision, new as of the weekend. He denies nausea, vomiting, hearing changes, focal weakness, visual or auditory hallucinations. He not had any medication changes other than the prednisone taper which was prescribed by Dr. Mast for his oral lesion as above. He denies confusion but reports difficulty in recall and slow mentation which he calls "moments where he blanks". He denies history of falls or head trauma. He has difficulty recalling the events which led to his admission. His family are at bedside and feel as though his mentation is a change from baseline. Past Med Surg Social Fam HX - Past Medical History Medical history: aortic aneurysm, arthritis, cancer, CHF, COPD, hyperlipidemia, hypertension, malignancy, renal disease, other Additional medical history: Stage 4 lung with mets to other lung< Gout, Sleep apnea, Obesity, ED, Depression, Carpal Tunnel, insomnia, fatigue, bronchitis, RLS, insomnia Psychiatric history: depression - Past Surgical History Surgical History: appendectomy, colectomy, colostomy, other Additional surgical history: Back Sx, Pilonidal cystectomy, Detached retina, Lung resection, rt-11/09, Sigmoid colectomy, - Social History Smoking Status: Former smoker Smokeless Tobacco Status: No (Former) Alcohol use: none Drug use: none - Family History Father Adopted: No Family Member Ethnicity: Non- Living Status: Hx Family Cardiac Disorders: Yes (CHF) Hx Family Respiratory Disorders: Yes (COPD) Hx Family Cancer: No Hx Family GI Disorders: No Hx Family Endocrine Disorder: Yes (DM) Hx Family Neuromuscular Disorders: No Hx Family Neurologic Disorders: No Hx Family HEENT Disorders: No Hx Family Autoimmune Disorders: No Mother Adopted: No Living Status: Hx Family Cardiac Disorders: Yes (CHF) Hx Family Respiratory Disorders: No Hx Family Cancer: No Hx Family GI Disorders: No Hx Family Endocrine Disorder: Yes (DM) Hx Family Neuromuscular Disorders: No Hx Family Neurologic Disorders: No Hx Family HEENT Disorders: No Hx Family Autoimmune Disorders: No Medications and Allergies RX: Indomethacin 75 mg PO DAILY PRN 11/02/15 [History] RX: Lidocaine/Prilocaine CREAM [Emla] 1 gm TP ONCE PRN #1 tube 03/15/16 [Rx] RX: Ondansetron [Zofran ODT] 8 mg SL Q8H PRN #60 tab.rapdis 03/31/16 [Rx] RX: Albuterol Sulfate [Albuterol Inhaler] 2 puff IH Q4-6H PRN #1 inhaler 04/20/16 [Rx] Levothyroxine [Synthroid] 1 tab PO DAILY #30 tablet 08/09/17 [Rx] Nivolumab [Opdivo] 100 mg IV QMONTH 10/22/17 [History] Terbinafine [Lamisil At] 12 gm TP AD 10/22/17 [History] RX: Pregabalin [Lyrica] 50 mg PO BID 30 Days #60 capsule 11/14/17 [Rx] RX: Morphine Immed Rel [Morphine Sulfate] 15 - 30 mg PO Q4HR PRN 10 Days #120 tab 11/22/17 [Rx] RX: Morphine Sulfate SR (12 HR) [MS Contin] 1 tab PO Q12HR 30 Days #60 tab 11/22/17 [Rx] Amoxicillin/Clavulanate [Augmentin] 1 tab PO BID #10 tablet 12/12/17 [Rx] RX: predniSONE [PredniSONE] 1 tab PO AD #9 tablet 12/12/17 [Rx] RX: Furosemide [Lasix] 20 mg PO DAILY PRN 12/18/17 [History] Allergy/AdvReac Type Severity Reaction Status Date / Time No Known Allergies Allergy Verified 12/12/17 13:35 Constitutional: Present: as per HPI, chills, fatigue, fever(s), headache(s), weakness. Absent: anorexia, weight loss Eyes: Present: blurry vision Nose, mouth and throat: Present: mouth lesions. Absent: dysphagia, odynophagia Cardiovascular: Absent: chest pain, irregular heart rhythm Respiratory: Present: dyspnea on exertion Gastrointestinal: Absent: abdominal pain, hematochezia, melena, nausea, vomiting Genitourinary: as per HPI Additional comments: denies dysuria or hematuria, reports penile discharge Musculoskeletal: Present: muscle weakness Integumentary: Present: new lesions Neurological: Present: disequilibrium, memory loss, weakness. Absent: focal weakness, frequent falls, syncope Psychiatric: Absent: auditory hallucinations, visual hallucinations Hematologic/Lymphatic: Present: as per HPI Oncology - Exam - Constitutional Vitals: Temp Pulse Resp BP Pulse Ox 98.7 F 85 15 111/74 91 12/17/17 10:49 12/17/17 10:49 12/17/17 10:49 12/17/17 10:49 12/17/17 10:49 General appearance: cooperative, no acute distress, obese, no febrile - Head Head exam: Present: atraumatic - Eye Eye exam: Present: PERRL. Absent: nystagmus - ENT Additional comments: ulcerated area bilaterally of buccal mucosa with some granulation tissue - Respiratory Respiratory exam: Present: CTAB. Absent: respiratory distress - Cardiovascular Cardiovascular exam: Present: RRR, +S1, +S2 - GI/Abdominal GI/Abdominal exam: Present: normal bowel sounds, soft. Absent: tenderness Additional comments: colostomy LLQ - Extremities Exam Extremities exam: Absent: calf tenderness - Neurological Exam Neurological exam: Present: alert, CN II-XII intact, oriented X3, no focal deficits, strengths equal and symetr throughout. Absent: facial droop, speech deficit Additional comments: difficulty with recent memory recall, forgets direction of thought process and requires redirection at times, slow mentation - Psychiatric Psychiatric exam: Present: normal affect, normal mood - Skin Skin exam: Present: dry, normal color, warm Additional comments: multiple, scattered skin ulcerations to extremities Oncology - Results Labs: 12/17/17 12/17/17 12/17/17 12:41 05:38 05:31 WBC RBC Hgb Hct MCV MCH MCHC RDW Plt Count MPV Immature Gran % Seg Neutrophils % Lymphocytes % Monocytes % Eosinophils % Basophils % Neutrophils # Lymphocytes # Monocytes # Eosinophils # Basophils # PT INR Sodium Potassium Chloride Carbon Dioxide BUN Creatinine Est GFR ( Amer) Est GFR (Non-Af Amer) BUN/Creatinine Ratio Glucose Calculated Osmolality Lactic Acid Calcium Troponin I 0.06 H* 0.08 H* Urine Color Yellow Urine Clarity Clear Urine pH 5.5 Ur Specific [place] 1.030 H Urine Protein Negative Urine Glucose (UA) Normal Urine Ketones Negative Urine Blood Negative Urine Nitrite Negative Urine Bilirubin Negative Urine Urobilinogen Normal Ur Leukocyte Esterase Negative Ur Culture Indicated? NO 12/17/17 12/17/17 12/17/17 01:54 01:54 01:54 WBC RBC Hgb Hct MCV MCH MCHC RDW Plt Count MPV Immature Gran % Seg Neutrophils % Lymphocytes % Monocytes % Eosinophils % Basophils % Neutrophils # Lymphocytes # Monocytes # Eosinophils # Basophils # PT 13.3 H INR 1.2 Sodium 139 Potassium 5.0 Chloride 105 Carbon Dioxide 28 BUN 22 Creatinine 1.53 H Est GFR ( Amer) 56 L Est GFR (Non-Af Amer) 46 L BUN/Creatinine Ratio 14 Glucose 118 H Calculated Osmolality 292 Lactic Acid 0.8 Calcium 9.2 Troponin I 0.07 H* Urine Color Urine Clarity Urine pH Ur Specific [place] Urine Protein Urine Glucose (UA) Urine Ketones Urine Blood Urine Nitrite Urine Bilirubin Urine Urobilinogen Ur Leukocyte Esterase Ur Culture Indicated? 12/17/17 01:54 WBC 12.1 H RBC 4.79 Hgb 14.6 Hct 45.4 MCV 94.8 MCH 30.5 MCHC 32.2 RDW 15.3 H Plt Count 136 L MPV 10.9 Immature Gran % 0.6 Seg Neutrophils % 83.1 Lymphocytes % 8.3 Monocytes % 6.9 Eosinophils % 0.4 Basophils % 0.7 Neutrophils # 10.1 H Lymphocytes # 1.0 Monocytes # 0.8 Eosinophils # 0.1 Basophils # 0.1 PT INR Sodium Potassium Chloride Carbon Dioxide BUN Creatinine Est GFR ( Amer) Est GFR (Non-Af Amer) BUN/Creatinine Ratio Glucose Calculated Osmolality Lactic Acid Calcium Troponin I Urine Color Urine Clarity Urine pH Ur Specific [place] Urine Protein Urine Glucose (UA) Urine Ketones Urine Blood Urine Nitrite Urine Bilirubin Urine Urobilinogen Ur Leukocyte Esterase Ur Culture Indicated? Consult Discharge Plan - Plan Referrals: Maxine Delatorre CNP [Primary Care Provider] - <Ronak Maria - Last Filed: 12/18/17 07:52> - Data of Consult Requesting Physician: John Taveras DO Primary Care Provider: Maxine Delatorre CNP - Consult Narrative History of present illness: Mr. Ricardo is a 67 year old male Oncology - Exam - Constitutional Vitals: Temp Pulse Resp BP Pulse Ox 100.3 F H 95 18 153/88 98 12/18/17 07:40 12/18/17 07:40 12/18/17 06:19 12/18/17 07:40 12/18/17 07:40 Oncology - Results Labs: 12/18/17 12/18/17 12/18/17 04:25 04:25 04:25 WBC RBC Hgb Hct MCV MCH MCHC RDW Plt Count MPV Immature Gran % Seg Neutrophils % Lymphocytes % Monocytes % Eosinophils % Basophils % Neutrophils # Lymphocytes # Monocytes # Eosinophils # Basophils # PT INR Sodium Potassium Chloride Carbon Dioxide BUN Creatinine Est GFR ( Amer) Est GFR (Non-Af Amer) BUN/Creatinine Ratio Glucose POC Glucose Est Mean Plasma Glucose Hemoglobin A1c Calculated Osmolality Lactic Acid Calcium Phosphorus Magnesium Ammonia Troponin I Triglycerides Cholesterol LDL Cholesterol, Calc VLDL Cholesterol, Calc HDL Cholesterol Cholesterol/HDL Ratio Vitamin B12 722 TSH Total Testosterone 107 L Random Cortisol 13.5 Urine Color Urine Clarity Urine pH Ur Specific [place] Urine Protein Urine Glucose (UA) Urine Ketones Urine Blood Urine Nitrite Urine Bilirubin Urine Urobilinogen Ur Leukocyte Esterase Ur Culture Indicated? 12/18/17 12/18/17 12/18/17 04:25 04:25 04:25 WBC 9.5 RBC 4.31 Hgb 13.1 D Hct 40.6 MCV 94.2 MCH 30.4 MCHC 32.3 RDW 15.0 H Plt Count 106 L MPV 10.7 Immature Gran % 0.3 Seg Neutrophils % 83.4 Lymphocytes % 9.8 Monocytes % 6.1 Eosinophils % 0.1 Basophils % 0.3 Neutrophils # 7.9 Lymphocytes # 0.9 Monocytes # 0.6 Eosinophils # 0.0 Basophils # 0.0 PT INR Sodium 141 Potassium 4.1 Chloride 107 Carbon Dioxide 27 BUN 17 Creatinine 1.14 Est GFR ( Amer) > 60 Est GFR (Non-Af Amer) > 60 BUN/Creatinine Ratio 15 Glucose 98 POC Glucose Est Mean Plasma Glucose 108 Hemoglobin A1c 5.4 Calculated Osmolality 294 Lactic Acid Calcium 8.4 L Phosphorus 2.4 L Magnesium 1.6 Ammonia Troponin I Triglycerides 147 Cholesterol 150 LDL Cholesterol, Calc 94 VLDL Cholesterol, Calc 29 HDL Cholesterol 27 L Cholesterol/HDL Ratio 5.6 H Vitamin B12 TSH 0.403 Total Testosterone Random Cortisol Urine Color Urine Clarity Urine pH Ur Specific [place] Urine Protein Urine Glucose (UA) Urine Ketones Urine Blood Urine Nitrite Urine Bilirubin Urine Urobilinogen Ur Leukocyte Esterase Ur Culture Indicated? 12/18/17 12/17/17 12/17/17 04:20 23:45 21:00 WBC RBC Hgb Hct MCV MCH MCHC RDW Plt Count MPV Immature Gran % Seg Neutrophils % Lymphocytes % Monocytes % Eosinophils % Basophils % Neutrophils # Lymphocytes # Monocytes # Eosinophils # Basophils # PT INR Sodium Potassium Chloride Carbon Dioxide BUN Creatinine Est GFR ( Amer) Est GFR (Non-Af Amer) BUN/Creatinine Ratio Glucose POC Glucose 120 H Est Mean Plasma Glucose Hemoglobin A1c Calculated Osmolality Lactic Acid 0.8 Calcium Phosphorus Magnesium Ammonia 39 Troponin I Triglycerides Cholesterol LDL Cholesterol, Calc VLDL Cholesterol, Calc HDL Cholesterol Cholesterol/HDL Ratio Vitamin B12 TSH Total Testosterone Random Cortisol Urine Color Urine Clarity Urine pH Ur Specific [place] Urine Protein Urine Glucose (UA) Urine Ketones Urine Blood Urine Nitrite Urine Bilirubin Urine Urobilinogen Ur Leukocyte Esterase Ur Culture Indicated? 12/17/17 12/17/17 12/17/17 12:41 05:38 05:31 WBC RBC Hgb Hct MCV MCH MCHC RDW Plt Count MPV Immature Gran % Seg Neutrophils % Lymphocytes % Monocytes % Eosinophils % Basophils % Neutrophils # Lymphocytes # Monocytes # Eosinophils # Basophils # PT INR Sodium Potassium Chloride Carbon Dioxide BUN Creatinine Est GFR ( Amer) Est GFR (Non-Af Amer) BUN/Creatinine Ratio Glucose POC Glucose Est Mean Plasma Glucose Hemoglobin A1c Calculated Osmolality Lactic Acid Calcium Phosphorus Magnesium Ammonia Troponin I 0.06 H* 0.08 H* Triglycerides Cholesterol LDL Cholesterol, Calc VLDL Cholesterol, Calc HDL Cholesterol Cholesterol/HDL Ratio Vitamin B12 TSH Total Testosterone Random Cortisol Urine Color Yellow Urine Clarity Clear Urine pH 5.5 Ur Specific [place] 1.030 H Urine Protein Negative Urine Glucose (UA) Normal Urine Ketones Negative Urine Blood Negative Urine Nitrite Negative Urine Bilirubin Negative Urine Urobilinogen Normal Ur Leukocyte Esterase Negative Ur Culture Indicated? NO 12/17/17 12/17/17 12/17/17 01:54 01:54 01:54 WBC RBC Hgb Hct MCV MCH MCHC RDW Plt Count MPV Immature Gran % Seg Neutrophils % Lymphocytes % Monocytes % Eosinophils % Basophils % Neutrophils # Lymphocytes # Monocytes # Eosinophils # Basophils # PT 13.3 H INR 1.2 Sodium 139 Potassium 5.0 Chloride 105 Carbon Dioxide 28 BUN 22 Creatinine 1.53 H Est GFR ( Amer) 56 L Est GFR (Non-Af Amer) 46 L BUN/Creatinine Ratio 14 Glucose 118 H POC Glucose Est Mean Plasma Glucose Hemoglobin A1c Calculated Osmolality 292 Lactic Acid 0.8 Calcium 9.2 Phosphorus Magnesium Ammonia Troponin I 0.07 H* Triglycerides Cholesterol LDL Cholesterol, Calc VLDL Cholesterol, Calc HDL Cholesterol Cholesterol/HDL Ratio Vitamin B12 TSH Total Testosterone Random Cortisol Urine Color Urine Clarity Urine pH Ur Specific [place] Urine Protein Urine Glucose (UA) Urine Ketones Urine Blood Urine Nitrite Urine Bilirubin Urine Urobilinogen Ur Leukocyte Esterase Ur Culture Indicated? 12/17/17 01:54 WBC 12.1 H RBC 4.79 Hgb 14.6 Hct 45.4 MCV 94.8 MCH 30.5 MCHC 32.2 RDW 15.3 H Plt Count 136 L MPV 10.9 Immature Gran % 0.6 Seg Neutrophils % 83.1 Lymphocytes % 8.3 Monocytes % 6.9 Eosinophils % 0.4 Basophils % 0.7 Neutrophils # 10.1 H Lymphocytes # 1.0 Monocytes # 0.8 Eosinophils # 0.1 Basophils # 0.1 PT INR Sodium Potassium Chloride Carbon Dioxide BUN Creatinine Est GFR ( Amer) Est GFR (Non-Af Amer) BUN/Creatinine Ratio Glucose POC Glucose Est Mean Plasma Glucose Hemoglobin A1c Calculated Osmolality Lactic Acid Calcium Phosphorus Magnesium Ammonia Troponin I Triglycerides Cholesterol LDL Cholesterol, Calc VLDL Cholesterol, Calc HDL Cholesterol Cholesterol/HDL Ratio Vitamin B12 TSH Total Testosterone Random Cortisol Urine Color Urine Clarity Urine pH Ur Specific [place] Urine Protein Urine Glucose (UA) Urine Ketones Urine Blood Urine Nitrite Urine Bilirubin Urine Urobilinogen Ur Leukocyte Esterase Ur Culture Indicated? - Attending Attestation I have seen and examined Mr. Ricardo and agree with Ms. enrique's assessment. In brief, he is a 67-year-old gentleman with metastatic lung cancer currently on nivolumab palliative therapy. Patient was doing well nivolumab, however when his treatment was scheduled to every 4 week infusions, he started to develop issues with word finding difficulty, memory loss, generalized fatigue which persisted for about 1 week after each treatment. His most recent treatment was December 12 and on the Sunday following, he was unable to remember his name prompting an emergency room visit. MRI imaging of brain is normal and without evidence of metastases. Although he is slow to answer some questions, there is no focal deficit identified today. I recommended a 24-hour urine free cortisol to look for underlying adrenal insufficiency. TSH is normal. Ammonia level has been obtained as well. Would continue to evaluate for underlying infectious source other this appears negative thus far. If condition improves, I think he may be discharged home hopefully in the near future. I am uncertain this is related to his therapy, however as evaluation is otherwise unremarkable, I would recommend decreasing his frequency of nivolumab to every other week or perhaps consider a treatment break to see if this alleviates the symptoms. Inpatient Charges Provider: Dr. Lenny Maria Consult - Inpatient Medicare Only: [id number]
[2017-12-17] MEDS ORDERED: Perflutren Lipid Microsphere 1.3 ML in 0.9 % Sodium Chloride 8.7 ML IVP ONE (15:11)
[2017-12-17] MEDS ORDERED: Ondansetron 4 MG/2 ML VIAL IVP ONE (20:26)
[2017-12-17] MEDS ORDERED: *HR* Promethazine 25 MG/ML VIAL IVP ONE (21:25)
[2017-12-17] MEDS ORDERED: Acetaminophen IV 500 MG/50 ML INFUS..BTL IVPB ONE (21:26)
[2017-12-17] MEDS ORDERED: *HR* Promethazine 25 MG/ML VIAL IM ONE (21:49)
--- NOTE | 2017-12-17 23:49 | Event Note ---
Date of Encounter: 12/17/17 Time of Encounter: 20:24 Notified by patients nurse that patient was having nausea and vomiting that persisted after Zofran as well as fever and patient lost IV access. Nurse called oncology for permission to access port and permission was given. Blood cultures pulled off port. Phenergan and IV tylenol then given which has resolved nausea and vomiting. Later notified by nurse that patient is having increased confusion. Blood cultures pending. Lactic and sitter ordered. Discussed patient with Dr Gonzalez and advised to start antibiotics in light of confusion, tachycardia, fever, and increased WBC count. Advised nursing staff to notify of any new changes.
[2017-12-18] MEDS: Piperacillin/Tazobactam 3.375 GM in 0.9 % Sodium Chloride Mini Bag 100 ML IVPB SCH ×2 (01:04→08:08)
[2017-12-18] MEDS: *HR* Heparin 5,000 UNIT/ML VIAL SQ SCH ×4 (01:09→23:33)
[2017-12-18] MEDS ORDERED: Acetaminophen IV 500 MG/50 ML INFUS..BTL IVPB ONE (01:43)
[2017-12-18] MEDS: 0.9 % Sodium Chloride 1,000 ML IVC SCH (03:02)
[2017-12-18 05:22] LABS: Basophils % 0.3 %; Eosinophils % 0.1 %; Hematocrit 40.6 % (37.5-50.1); Hemoglobin 13.1 g/dL (12.9-16.9); Immature Granulocytes % 0.3 % (0-4); Lymphocytes # 0.9 K/mcL (0.6-4.6); Lymphocytes % 9.8 %; Mean Corpuscular HGB Conc 32.3 g/dL (31.6-35.5); Mean Corpuscular Hemoglobin 30.4 pg (28.0-33.3); Mean Corpuscular Volume 94.2 fL (83.0-100.0); Mean Platelet Volume 10.7 fL (9.4-12.4); Monocytes # 0.6 K/mcL (0.0-1.3); Monocytes % 6.1 %; Neutrophils # 7.9 K/mcL (1.6-8.9); Platelet Count 106 K/mcL (140-400); Red Blood Count 4.31 M/mcL (4.19-5.50); Segmented Neutrophils % 83.4 %
[2017-12-18 05:37] LABS: BUN/Creatinine Ratio 15 (6-26); Blood Urea Nitrogen 17 mg/dL (8-23); Calcium 8.4 mg/dL (8.6-10.3); Carbon Dioxide 27 mEq/L (23-29); Chloride 107 mEq/L (98-107); Chol/HDL Ratio 5.6 (0-4.9); Cholesterol 150 mg/dL (< 200); Glucose 98 mg/dL (70-105); HDL Cholesterol 27 mg/dL (40-59); LDL Cholesterol,Calculated 94 mg/dL (0-99); Magnesium 1.6 mg/dL (1.6-2.6); Osmolality,Calculated 294 (280-300); Phosphorous 2.4 mg/dL (2.7-4.5); Potassium 4.1 mEq/L (3.5-5.1); Sodium 141 mEq/L (136-145); Triglycerides 147 mg/dL (< 150); eGFR For Non-African Americans > 60 (> 60)
[2017-12-18 05:49] LABS: Thyroid Stimulating Hormone 0.403 mcIU/mL (0.340-5.600)
[2017-12-18 06:46] LABS: Estimated Average Glucose 108 mg/dl; Hemoglobin A1C 5.4 %
[2017-12-18] MEDS ORDERED: Ondansetron 4 MG/2 ML VIAL IVP ONE (07:34)
[2017-12-18] MEDS: Aspirin Enteric Coated 81 MG Tablet PO SCH ×2 (08:08→08:12)
[2017-12-18] MEDS ORDERED: Acetaminophen IV 1,000 MG/100 ML INFUS..BTL IVPB PRN (08:38)
[2017-12-18] MEDS ORDERED: Ondansetron 4 MG/2 ML VIAL IVP PRN (08:38)
--- NOTE | 2017-12-18 08:38 | Internal Med Progress Note ---
Addendum entered and electronically signed by John Taveras DO 12/18/17 16:50: Addendum entered and electronically signed by Ernesto Curry 12/18/17 13:24: Zosyn discontinued, started on cefepime Original Note: <Ernesto Curry - Last Filed: 12/18/17 13:22> Date of Encounter: 12/18/17 Time of Encounter: 08:00 - Assessment and plan (1) Encephalopathy Current Visit: Yes Status: Acute Assessment and plan: -likely viral in nature -no nuchal rigidity -CT and MRI head both non-acute -LP pending -LP cultures pending -start acyclovir 10 mg/kg IV Q8h; appreciate pharm recs -Neurology consulted -monitor mental status (2) Sepsis Current Visit: No Status: Acute Assessment and plan: -Blood cultures peripheral IV x2 and port x2 pending -UA unremarkable -lactic acid 0.8 -tylenol 1000mg PRN Q6h -Vanc and Zosyn started today -IVFs 75ml/h NS -ID consulted Qualifiers: Sepsis type: sepsis due to unspecified organism Qualified Code(s): A41.9 - Sepsis, unspecified organism (3) Lightheaded Current Visit: Yes Status: Acute Assessment and plan: -likely 2/2 dehydration -continue neuro checks -MRI non-acute, will not consult neuro at this time -A1c 5.4 -TSH 0.403 -lipid panel unremarkable -Flu A/B negative -monitor BP status -follow up orthostatics -monitor (4) [id number]-rq-[id number] kidney injury Current Visit: Yes Status: Acute Assessment and plan: -improving -likely 2/2 dehydration -SCr 1.14 today, down from 1.53; baseline of ~1.0 -CT a/p: 9mm R adrenal mass, stable; stable colectomy and colostomy -random cortisol 13.5 (wnl) -I/O 2200/1800ml since admit -collecting 24h urine starting today -continue to monitor daily labs Qualifiers: Acute renal failure type: unspecified Chronic kidney disease stage: stage 2 (mild) Qualified Code(s): N17.9 - Acute kidney failure, unspecified; N18.2 - Chronic kidney disease, stage 2 (mild) (5) Elevated troponin Current Visit: Yes Status: Acute Assessment and plan: -likely kidney related -negative x3; 0.07 -> 0.08 -> 0.06 -repeat EKG -continue to monitor for any new coronary sxs (6) Fever Current Visit: Yes Status: Acute Assessment and plan: -Tmax overnight of 102.1 -see sepsis Qualifiers: Fever type: unspecified Qualified Code(s): R50.9 - Fever, unspecified (7) CHF (congestive heart failure) Current Visit: Yes Status: Chronic Assessment and plan: -h/o CHF, unknown which type -echo 12/17/17: EF 60-65%, mild LV diastolic dysfunction -monitor Qualifiers: Heart failure type: unspecified Heart failure chronicity: chronic Qualified Code(s): I50.9 - Heart failure, unspecified (8) Adenocarcinoma of lung Current Visit: No Status: Chronic Assessment and plan: -on Opdivo therapy; last injection on 12/12/17 -follows up outpatient with oncology -oncology consulted during this admission Qualifiers: Laterality: right Qualified Code(s): C34.91 - Malignant neoplasm of unspecified part of right bronchus or lung (9) Thrombocytopenia Current Visit: No Status: Chronic Assessment and plan: -plt 118 on admission -plt 104 today -monitor (10) DVT prophylaxis Current Visit: No Status: Acute Assessment and plan: -5000 U subq heparin TID d/t JORY - Time Spent With Patient 25 - 35 minutes - Subjective Interval history: Pt seen at bedside today. Pt does not answer most questions appropriately. Is only able to answer some simple yes or no questions. Unable to obtain much history today due to pt's mental status. Per chart review, pt's family states that pt is not at his baseline mental status and is altered from normal. Family not in room this AM. Per nursing, pt has vomited a lot this AM and has filled approximately 4 green bags. Zofran was given. Pt on 2L O2 NC. - Constitutional Vitals: Temp Pulse Resp BP Pulse Ox 100.3 F H 95 18 153/88 98 12/18/17 07:40 12/18/17 07:40 12/18/17 06:19 12/18/17 07:40 12/18/17 07:40 General appearance: Present: A&O X 0 - Head Head exam: Present: normal inspection - Eye Eye exam: Present: PERRL, conjuntiva pink, sclera anicteric Pupils: Present: PERRL - ENT ENT exam: Present: normal exam - Neck Neck exam general surgery: Present: supple, trachea midline. Absent: lymphadenopathy - Respiratory Respiratory exam: Present: decreased breath sounds (on R d/t lobectomy), wheezes (B/l expiratory). Absent: prolonged expiratory phase - Cardiovascular Cardiovascular exam: Present: RRR, +S1, +S2. Absent: diastolic murmur, gallop, rubs, systolic murmur - GI/Abdominal GI/Abdominal exam: Present: distended, normal bowel sounds, rigid, tenderness (diffusely). Absent: pulsatile mass Additional comments: Colostomy bag present on L side - Rectal Rectal exam: Present: deferred - Extremities Exam Extremities exam: Present: normal inspection. Absent: joint swelling, pedal edema - Neurological Exam Neurological exam: Present: altered. Absent: facial droop, speech deficit Internal Medicine: Result - Labs CBC & Chem 7: 12/18/17 04:25 12/18/17 04:25 Labs: Short CBC 12/18/17 Range/Units 04:25 WBC 9.5 (4.3-11.1) K/mcL Hgb 13.1 D (12.9-16.9) g/dL Hct 40.6 (37.5-50.1) % Plt Count 106 L (140-400) K/mcL Neutrophils # 7.9 (1.6-8.9) K/mcL BMP 12/18/17 04:25 Sodium 141 Potassium 4.1 Chloride 107 Carbon Dioxide 27 BUN 17 Creatinine 1.14 Glucose 98 Calcium 8.4 L Cardiac Enzymes 12/17/17 Range/Units 12:41 Troponin I 0.06 H* (< 0.04) ng/mL - ABG Interpretation ABG results: PT/INR, D-dimer PT 13.3 Seconds (9.4-12.1) H 12/17/17 01:54 - Impressions Impressions Chest X-Ray 12/17/17 07:32 IMPRESSION: Right lung pleuroparenchymal abnormality favored to be chronic and posttreatment related when compared with prior imaging. Difficult to exclude superimposed acute infectious airspace disease. D/ / Gary Marcano / Gary Marcano Interpreting Provider: Gary Marcano Brain MRI 12/17/17 08:05 IMPRESSION: No acute intracranial abnormality. No evidence of intracranial metastatic disease. D/ 12/17/2017 13:22:04 Dennise Cowart MD / Nkechi Brownlee Interpreting Provider: Dennise Cowart MD Consult Discharge Plan - Plan Referrals: Maxine Delatorre [employer] [Primary Care Provider] - <John Taveras - Last Filed: 12/18/17 16:50> - Assessment and plan (1) Acute metabolic encephalopathy Current Visit: Yes Status: Acute Assessment and plan: Supportive care. (2) Sepsis Current Visit: Yes Status: Acute Qualifiers: Sepsis type: sepsis due to unspecified organism Qualified Code(s): A41.9 - Sepsis, unspecified organism (3) Fever Current Visit: Yes Status: Acute Qualifiers: Fever type: due to other condition Qualified Code(s): R50.81 - Fever presenting with conditions classified elsewhere (4) Nausea and vomiting Current Visit: Yes Status: Acute Qualifiers: Vomiting type: unspecified Vomiting Intractability: unspecified Qualified Code(s): R11.2 - Nausea with vomiting, unspecified (5) CKD (chronic kidney disease) Current Visit: No Status: Chronic Assessment and plan: Supportive care. Qualifiers: Chronic kidney disease stage: stage 3 (moderate) Qualified Code(s): N18.3 - Chronic kidney disease, stage 3 (moderate) (6) Hypertension Current Visit: No Status: Chronic Assessment and plan: Controlled at this time. Qualifiers: Hypertension type: essential hypertension Qualified Code(s): I10 - Essential (primary) hypertension (7) AQUILES (obstructive sleep apnea) Current Visit: No Status: Chronic Assessment and plan: Continue home management. (8) Non-small cell lung cancer Current Visit: No Status: Resolved Assessment and plan: On treatment. Qualifiers: Laterality: right Qualified Code(s): C34.91 - Malignant neoplasm of unspecified part of right bronchus or lung - Constitutional Vitals: Temp Pulse Resp BP Pulse Ox 99.9 F H 94 20 147/70 98 12/18/17 14:48 12/18/17 14:48 12/18/17 14:48 12/18/17 14:48 12/18/17 14:48 Internal Medicine: Result - Labs CBC & Chem 7: 12/18/17 04:25 12/18/17 04:25 Labs: Short CBC 12/18/17 Range/Units 04:25 WBC 9.5 (4.3-11.1) K/mcL Hgb 13.1 D (12.9-16.9) g/dL Hct 40.6 (37.5-50.1) % Plt Count 106 L (140-400) K/mcL Neutrophils # 7.9 (1.6-8.9) K/mcL BMP 12/18/17 04:25 Sodium 141 Potassium 4.1 Chloride 107 Carbon Dioxide 27 BUN 17 Creatinine 1.14 Glucose 98 Calcium 8.4 L - ABG Interpretation ABG results: PT/INR, D-dimer PT 13.3 Seconds (9.4-12.1) H 12/17/17 01:54 - Impressions Impressions Chest X-Ray 12/17/17 07:32 IMPRESSION: Right lung pleuroparenchymal abnormality favored to be chronic and posttreatment related when compared with prior imaging. Difficult to exclude superimposed acute infectious airspace disease. D/ / Gary Marcano / Gary Marcano Interpreting Provider: Gary Marcano Echocardiogram 12/17/17 07:36 Impressions: Technically challenging due to body habitus. LVEF 60-65%. Not all LV wall segments were well visualized even with use of Definity. Mild left ventricular diastolic dysfunction. Normal right ventricular structure and function. Mild tricuspid regurgitation. - Attending Attestation The history, physical exam, and medical decision making was performed by the medical student either while I was physically present and actively involved or I personally re-performed the exam and medical decision making. I have verified the accuracy of the medical student's documentation with regards to the history, physical exam findings, and medical decision making on 12/18/17. Mr Ricardo is currently admitted for acute encephalopathy, fever and nausea/vomiting. He is on Opdivo. He remains moderate to high risk due to potential for wosrening clinical status. Mr Ricardo is febrile again (102.9 ax). He is having difficulty answering questions. No CP. ? SOB. ? abd discomfort. Has ostomy. Unable to give much more history to me. Exam alert. Cannot answer questions well. Mucus membranes dry Heart reg and tachy No rales heard Abd soft - does not appear to be tender No edema No rash I/P 1. Encephalopathy 2. Fever - appreciate ID and neuro input 3. Lung cancer on chemo Further diagnoses and plan as above
[2017-12-18] MEDS ORDERED: Acetaminophen IV 1,000 MG/100 ML INFUS..BTL IVPB ONE (08:48)
--- NOTE | 2017-12-18 09:42 | Infectious Disease Consult ---
Date of Encounter: 12/18/17 Time of Encounter: 11:28 Assessment and Plan (1) Sepsis Status: Acute Assessment and plan: Severe sepsis: 3 sepsis criteria noted on admission with acute kidney injury and elevated troponin. 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 White blood cell count has improved. The patient continues to have tachycardia, tachypnea, and high fevers. He developed some confusion overnight. Blood cultures drawn 2 sets from peripheral stick and are pending 2 sets. Repeat blood cultures drawn on 12/17/17 from the patient's A-port are pending 2 sets. Flu antigen swab was negative. Chest x-ray showed right lung pleural parenchymal abnormality favored to be chronic in post treatment, but superimposed pneumonia cannot be excluded. CT abdomen and pelvis was negative for acute abnormality. CT and MRI of the head were also negative. Qualifiers: Sepsis type: sepsis due to unspecified organism Qualified Code(s): A41.9 - Sepsis, unspecified organism (2) Acute encephalopathy Status: Acute Assessment and plan: Etiology: Unclear. 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 CT and MRI of the head are both negative for acute abnormality. Consult neurology. The patient would likely benefit from a lumbar puncture. If LP is performed, please send CSF for cell count with differential, protein, glucose, culture, HSV, VZV. The orders have been placed. Check cryptococcal antigen. Start acyclovir 10 mg/kg IV every 8 hours. Dosing discussed with Jung Pharm.D. States will use adjusted body weight to maintain adequate drug levels. Monitor renal function and dose adjust vacations. Monitor closely for acute worsening of his mental status. (3) Pneumonia Status: Suspected Assessment and plan: Location: Right lung. Positive organism: Unclear. Chest x-ray showed right lung pleural parenchymal abnormality failure to be chronic and posttreatment related when compared to prior imaging, but difficult to exclude superimposed acute infectious airspace disease. Check respiratory infectious panel. Get CT of the chest without contrast now. Discontinue Zosyn. Continue vancomycin IV. Pharmacy to dose. Goal trough approximately 15. Start cefepime 2 g IV every 8 hours. Start Flagyl 500 mg IV 3 times a day. Duration of treatment depends on the clinical picture. Monitor renal function dose adjust antibiotics. Qualifiers: Pneumonia type: due to unspecified organism Laterality: right Lung location: lower lobe of lung Qualified Code(s): J18.1 - Lobar pneumonia, unspecified organism (4) Gdbtl-yg-trcdper kidney injury Status: Acute Assessment and plan: Likely secondary to sepsis. Improved. Continue to trend. Monitor renal function and dose adjust antibiotics. Avoid nephrotoxins as able. Qualifiers: Acute renal failure type: unspecified Chronic kidney disease stage: stage 2 (mild) Qualified Code(s): N17.9 - Acute kidney failure, unspecified; N18.2 - Chronic kidney disease, stage 2 (mild) (5) Lightheaded Status: Acute Assessment and plan: Likely secondary to sepsis. CT and MRI of the head are both negative for acute abnormality. Recommend neurology to evaluate. Await their recommendations. (6) Elevated troponin Status: Acute Assessment and plan: Troponins elevated at 0.07, 0.08, 0.06. The patient denies any chest pain. Further workup and management per the primary team. (7) CHF (congestive heart failure) Status: Chronic Qualifiers: Heart failure type: unspecified Heart failure chronicity: chronic Qualified Code(s): I50.9 - Heart failure, unspecified (8) Metastatic primary lung cancer Status: Acute Assessment and plan: Diagnosed in 2013 with primary lung adenocarcinoma. Remote history of right upper lobe lobectomy. Positive for pulmonary nodules with evidence of metastatic disease in 2015. Status post wedge resection of the right lung nodules 4. Started onNivolumab [id number] in December 2016. Transitioned to Q4 week dosing in June 2017. Last dose 12/12/17. Hem/Onc consulted and following. Qualifiers: Laterality: unspecified laterality Qualified Code(s): C34.90 - Malignant neoplasm of unspecified part of unspecified bronchus or lung (9) Morbid obesity with BMI of 40.0-44.9, adult Status: Chronic (10) Nausea and vomiting Status: Acute Assessment and plan: Etiology unclear. CT of the abdomen and pelvis negative for acute abnormality. Management per the primary team. Qualifiers: Vomiting type: unspecified Vomiting Intractability: unspecified Qualified Code(s): R11.2 - Nausea with vomiting, unspecified Infectious Disease HPI - Data of Consult Patient: new to practice Consult date: 12/18/17 Requesting Physician: John Taveras DO Primary Care Provider: Maxine Delatorre CNP - Consult Narrative Reason for consult: Fever History of present illness: Mr. Ricardo is a 67 year old male with a past medical history of primary lung adenocarcinoma diagnosed in 2014 status post RUL lobectomy with mets diagnosed in 2016 status post wedge resection currently on Nivolumab Q4 weeks with last dose 12/12/17, AAA, CHF, COPD, HTN, and CKD. The patient was admitted to the hospital 12/17/17 for lightheadedness and positive troponin. We are consulted 12/18/17 for further recommendations for fever. The patient is a 67 year old male with a past medical history as stated above. The patient is somewhat of a poor historian regarding the events leading up to his hospitalization, therefore, most of the information is obtained from the medical record.The patient presented to the ER yesterday with complaints of feeling generally poor and lightheadedness. Upon arrival to the ER, the patient was febrile, tachycardic, and had leukocytosis with neutrophilic predominance. Additional labs revealed an acute kidney injury and a mildly elevated troponin. Lactic acid was normal. Urinalysis was negative for pyuria. CT of the head was negative. CT of the abdomen and pelvis was negative for acute abnormality. The patient's complaints were initially thought to be secondary to his recent chemotherapy infusion, but he was admitted to the hospital for further evaluation. Since admission, the patient has continued to be febrile with a Tmax of 102.9 in the last 24 hours. He has had tachycardia and tachypnea. His white blood cell count has normalized today. Overnight, the patient became acutely confused and started having intractable nausea and vomiting. Blood cultures were obtained 2 sets peripherally and 2 sets from his A-port and are pending. Flu antigen swab was negative. He had a chest x-ray that showed right lung pleuroparenchymal abnormality favored to be chronic and posttreatment. He did undergo an MRI of the brain that was negative. He was started empirically on Vanco and Zosyn. We have been asked to evaluate and make further recommendations. During my exam today, the patient is diaphoretic and slow to respond to questions. He cannot recall the events leading up to his hospitalization. He reports some headache and neck pain. Has been febrile and diaphoretic. Denies chest pain, but reports some shortness of breath and cough. Reports nausea with vomiting this morning. Denies abdominal pain or urinary complaints. Colostomy remains patent with dark brown liquid stool. Reports some congestion, but denies earache or sore throat. Denies oral thrush or new skin lesions. ROS limited due to the patient's mental status. CC: John Taveras, DO Past Med Surg Social Fam HX - Past Medical History Source: old records reviewed, nursing notes reviewed Medical history: aortic aneurysm, arthritis, cancer, CHF, COPD, hyperlipidemia, hypertension, malignancy, renal disease, other Additional medical history: Stage 4 lung with mets to other lung< Gout, Sleep apnea, Obesity, ED, Depression, Carpal Tunnel, insomnia, fatigue, bronchitis, RLS, insomnia Psychiatric history: depression - Past Surgical History Surgical History: appendectomy, colectomy, colostomy, other Additional surgical history: Back Sx, Pilonidal cystectomy, Detached retina, Lung resection, rt-11/09, Sigmoid colectomy, - Social History Smoking Status: Former smoker Smokeless Tobacco Status: No (Former) Alcohol use: none Drug use: none Occupational status: retired Current living situation: Home, With Family Activity Level: Independent ambulation Recent Out of Country Travel Within the Last 8 Weeks: No Exposure or Possible Exposure to Illness During Travel: No - Family History Father Adopted: No Family Member Ethnicity: Non- Living Status: Hx Family Cardiac Disorders: Yes (CHF) Hx Family Respiratory Disorders: Yes (COPD) Hx Family Cancer: No Hx Family GI Disorders: No Hx Family Endocrine Disorder: Yes (DM) Hx Family Neuromuscular Disorders: No Hx Family Neurologic Disorders: No Hx Family HEENT Disorders: No Hx Family Autoimmune Disorders: No Mother Adopted: No Living Status: Hx Family Cardiac Disorders: Yes (CHF) Hx Family Respiratory Disorders: No Hx Family Cancer: No Hx Family GI Disorders: No Hx Family Endocrine Disorder: Yes (DM) Hx Family Neuromuscular Disorders: No Hx Family Neurologic Disorders: No Hx Family HEENT Disorders: No Hx Family Autoimmune Disorders: No Infectious Disease-CN:Meds RX: Indomethacin 75 mg PO DAILY PRN 11/02/15 [History] RX: Lidocaine/Prilocaine CREAM [Emla] 1 gm TP ONCE PRN #1 tube 03/15/16 [Rx] RX: Ondansetron [Zofran ODT] 8 mg SL Q8H PRN #60 tab.rapdis 03/31/16 [Rx] RX: Albuterol Sulfate [Albuterol Inhaler] 2 puff IH Q4-6H PRN #1 inhaler 04/20/16 [Rx] Levothyroxine [Synthroid] 1 tab PO DAILY #30 tablet 08/09/17 [Rx] Nivolumab [Opdivo] 100 mg IV QMONTH 10/22/17 [History] Terbinafine [Lamisil At] 12 gm TP AD 10/22/17 [History] RX: Pregabalin [Lyrica] 50 mg PO BID 30 Days #60 capsule 11/14/17 [Rx] RX: Morphine Immed Rel [Morphine Sulfate] 15 - 30 mg PO Q4HR PRN 10 Days #120 tab 11/22/17 [Rx] RX: Morphine Sulfate SR (12 HR) [MS Contin] 1 tab PO Q12HR 30 Days #60 tab 11/22/17 [Rx] Amoxicillin/Clavulanate [Augmentin] 1 tab PO BID #10 tablet 12/12/17 [Rx] RX: predniSONE [PredniSONE] 1 tab PO AD #9 tablet 12/12/17 [Rx] RX: Furosemide [Lasix] 20 mg PO DAILY PRN 12/18/17 [History] Allergy/AdvReac Type Severity Reaction Status Date / Time No Known Allergies Allergy Verified 12/12/17 13:35 ROS unobtainable: other (limited due to mental status.) All systems: reviewed and no additional remarkable complaints except as stated Exam - Constitutional Vitals: Temp Pulse Resp BP Pulse Ox 102.9 F H 98 20 157/87 96 12/18/17 08:42 12/18/17 08:42 12/18/17 08:42 12/18/17 08:42 12/18/17 08:42 General appearance: cooperative, morbidly obese, no acute distress - Head Head exam: Present: atraumatic, normal inspection, normocephalic - Eye Eye exam: Present: EOMI, normal appearance, PERRL Pupils: Present: normal accommodation - ENT ENT exam: Present: mucous membranes moist - Neck Neck exam: Present: meningismus (Pain with flexion of the neck.), normal inspection - Respiratory Respiratory exam: Present: rhonchi (throughout). Absent: rales, respiratory distress, wheezes - Cardiovascular Cardiovascular exam: Present: +S1, +S2, tachycardia. Absent: irregular rhythm - GI/Abdominal GI/Abdominal exam: Present: distended (obese), normal bowel sounds, soft. Absent: tenderness Additional comments: Colostomy noted to the LLQ with moderate amount of dark brown liquid stool noted in the collection bag. Stoma is prolapsed, but beefy red and moist. - Extremities Exam Extremities exam: Present: normal inspection. Absent: joint swelling, pedal edema, tenderness - Neurological Exam Neurological exam: Present: alert, oriented X3, no focal deficits Additional comments: Slow to respond to questions. Appears confused intermittently throughout the exam. Unable to recall events leading to hospitalization. - Psychiatric Psychiatric exam: Present: normal affect, normal mood - Skin Skin exam: Present: intact, pallor. Absent: dry (diaphoretic) Infectious Disease CN: Results - Labs CBC & Chem 7: 12/18/17 04:25 12/18/17 04:25 Cultures: Cultures 12/17/17 22:35 Blood Culture - Preliminary Port System Culture is incubating and being continuously monitored for growth. Final report to follow. 12/17/17 22:35 Blood Culture - Preliminary Port System Culture is incubating and being continuously monitored for growth. Final report to follow. 12/17/17 10:05 Influenza Types A,B Antigen - Final Nasopharyngeal 12/17/17 07:10 Blood Culture - Preliminary Peripheral Venipuncture Culture is incubating and being continuously monitored for growth. Final report to follow. 12/17/17 07:16 Blood Culture - Preliminary Peripheral Venipuncture Culture is incubating and being continuously monitored for growth. Final report to follow. Serology: Serology 12/17/17 Range/Units 05:38 Urine Color Yellow (Yellow) Urine Clarity Clear (Clear) Urine pH 5.5 (5.0-8.0) pH Units Ur Specific [place] 1.030 H (1.010-1.025) Urine Protein Negative (Neg-Trace) mg/dL Urine Glucose (UA) Normal (Normal) mg/dL Urine Ketones Negative (Negative) mg/dL Urine Blood Negative (Negative) Urine Nitrite Negative (Negative) Urine Bilirubin Negative (Negative) Urine Urobilinogen Normal (Normal) mg/dL Ur Leukocyte Esterase Negative (Negative) Ur Culture Indicated? NO (NO) Consult Discharge Plan - Plan Referrals: Maxine Delatorre, MEDICAL FILE CLERK [Primary Care Provider] - - Attending Attestation I examined this patient and my medical decision-making was reviewed with the Resident Physician. I agree with the documented findings, disposition and treatment plan as described except to the extent set forth below. This is an addendum to original report dictated by Karen Bond CNP. Please refer to Arik hutchinson for full detail. Patient 67-year-old gentleman with past medical history mentioned below presented to [place] with fevers chills confusion disorientation. Patient apparently was initially diagnosed with stage IV lung cancer 5 years ago received chemotherapy and radiation therapy and did well for a while and then had recurrence of the disease. Patient is currently on immunotherapy and has a port on the right chest. Most of the information was taken from medical records and from daughter at bedside since the patient is really not verbal. On further questioning patients daughter tells me he has not had any travel he lives home with his ex girlfriend and his knees and he has a dog. No sick contacts that he knows off or she knows the family members were sick. And she does not think the patient has any allergies. Assessment and plan: Sepsis - etiology is not very clear. Concern for viral syndrome. URI symptoms versus pneumonia is also only differential. Acute encephalopathy - likely secondary to metabolic encephalopathy but could n ot rule out encephalitis or meningitis. Daughter tells me she thinks he had shingles in the past but she is not sure. Pneumonia -causative organism not clear . Respiratory infectious panel did not detect any organism. Acute kidney injury - likely secondary to sepsis. Improving. Stage IV lung cancer - Recommendations: Check respiratory infectious panel, urine legionella and pneumococcal antigen, sputum culture if possible. CT chest Await cultures to finalize Agree with broad-spectrum antibiotics Discussed with neurology, we will likely get an LP Broaden the antibiotics to include vancomycin, cefepime, Flagyl and acyclovir. Goal vancomycin trough around 15 Monitor labs and drug toxicity.
[2017-12-18] MEDS ORDERED: Isovue-370 500 ML INFUS..BTL IV ONE (11:19)
[2017-12-18] MEDS ORDERED: Ipratropium/Albuterol Neb 3 ML IH PRN (11:23)
[2017-12-18] MEDS ORDERED: WATER IVPB SCH (12:00)
[2017-12-18] MEDS ORDERED: D5 IVPB SCH (12:00)
[2017-12-18] MEDS ORDERED: ACYCLOVIR IVPB SCH (12:00)
[2017-12-18 13:15] LABS: Adenovirus Not Detected (Not Detect); Bordetella Pertussis Not Detected (Not Detect); Chlamydophila pneumoniae Not Detected (Not Detect); Coronavirus 229E Not Detected (Not Detect); Coronavirus HKU1 Not Detected (Not Detect); Coronavirus NL63 Not Detected (Not Detect); Coronavirus OC43 Not Detected (Not Detect); Human Metapneumovirus Not Detected (Not Detect); Human Rhinovirus/Enterovirus Not Detected (Not Detect); Influenza A Subtype 2009 H1 Not Detected (Not Detect); Influenza A Untypeable Not Detected (Not Detect); Influenza B Not Detected (Not Detect); Mycoplasma pneumoniae Not Detected (Not Detect); Parainfluenza Virus 1 Not Detected (Not Detect); Parainfluenza Virus 2 Not Detected (Not Detect); Parainfluenza Virus 3 Not Detected (Not Detect); Parainfluenza Virus 4 Not Detected (Not Detect); Respiratory Syncytial Virus Not Detected (Not Detect)
--- NOTE | 2017-12-18 13:31 | Neurology - Consult Note ---
<Fco Adame - Last Filed: 12/18/17 16:04> Date of Encounter: 12/18/17 Time of Encounter: 13:31 Assessment and Plan (1) Sepsis Current Visit: Yes Status: Acute Continues fever since admission, leukocytosis, tachycardia, tachypnea Etiology unknown however due to worsening confusion there is concern for DYNAMOMETER TESTER pathology Patient has no clear history of travel, sick contacts. Patient is on broad-spectrum antibiotics and antiviral He will undergo LP today. Qualifiers: Sepsis type: sepsis due to unspecified organism Qualified Code(s): A41.9 - Sepsis, unspecified organism (2) Acute encephalopathy Current Visit: Yes Status: Acute Patient is alert to self, place, situation but not time. He reports memory problems for the past 2 weeks. Negative Brudzinski or Kernig's Neuro exam nonfocal, nonlateralizing continues to be febrile, nausea and vomiting which is worsening, and worsening mental status patient could likely have meningitis/encephalitis. Brain MRI is negative. LP today (3) Metastatic primary lung cancer Current Visit: Yes Status: Acute Qualifiers: Laterality: unspecified laterality Qualified Code(s): C34.90 - Malignant neoplasm of unspecified part of unspecified bronchus or lung History of Present Illness Chief complaint: Dizziness HPI: Mr. Ricardo is a 67 year old male with history of stage IV lung cancer currently on immunotherapy presented with chief complaint of dizziness/disorientation. Patient will according to family members lives in the house with niece. His symptoms started Sunday night. But he notes that he has had memory issues for the past 2 weeks but cannot state specifically what. Patient has had nausea, vomiting before admission and this morning. He is alert to self, place, situation but not time. He denies headache, blurry vision, neck pain, chest pain, shortness of breath. He has not traveled anywhere recently. He denies any sick contacts. Patient did attend [employer] festival last Sunday. He also denies numbness, tingling, weakness. Patient is treated with nivolumab monthly for primary lung cancer. He has a ostomy secondary to perforated diverticuli. He denies any change in stool or urine. Since admission he is found to be in sepsis secondary to unknown cause. Chest x-ray shows possible right lung pneumonia. There was concern for DYNAMOMETER TESTER infection and neurology was consulted for LP. Head CT and MRI are negative for acute changes. According to family patient is more confused than on admission. His nausea and vomiting has worsened. Past Med Surg Social Fam HX - Past Medical History Medical history: aortic aneurysm, arthritis, cancer, CHF, COPD, hyperlipidemia, hypertension, malignancy, renal disease, other Additional medical history: Stage 4 lung with mets to other lung< Gout, Sleep apnea, Obesity, ED, Depression, Carpal Tunnel, insomnia, fatigue, bronchitis, RLS, insomnia Psychiatric history: depression - Past Surgical History Surgical History: appendectomy, colectomy, colostomy, other Additional surgical history: Back Sx, Pilonidal cystectomy, Detached retina, Lung resection, rt-11/09, Sigmoid colectomy, - Social History Smoking Status: Former smoker Smokeless Tobacco Status: No (Former) Alcohol use: none Drug use: none - Family History Mother Adopted: No Living Status: Hx Family Cardiac Disorders: Yes (CHF) Hx Family Respiratory Disorders: No Hx Family Cancer: No Hx Family GI Disorders: No Hx Family Endocrine Disorder: Yes (DM) Hx Family Neuromuscular Disorders: No Hx Family Neurologic Disorders: No Hx Family HEENT Disorders: No Hx Family Autoimmune Disorders: No Father Adopted: No Family Member Ethnicity: Non- Living Status: Hx Family Cardiac Disorders: Yes (CHF) Hx Family Respiratory Disorders: Yes (COPD) Hx Family Cancer: No Hx Family GI Disorders: No Hx Family Endocrine Disorder: Yes (DM) Hx Family Neuromuscular Disorders: No Hx Family Neurologic Disorders: No Hx Family HEENT Disorders: No Hx Family Autoimmune Disorders: No Medications and Allergies Indomethacin 75 mg PO DAILY PRN 11/02/15 [History] Lidocaine/Prilocaine CREAM [Emla] 1 gm TP ONCE PRN #1 tube 03/15/16 [Rx] Ondansetron [Zofran ODT] 8 mg SL Q8H PRN #60 tab.rapdis 03/31/16 [Rx] Albuterol Sulfate [Albuterol Inhaler] 2 puff IH Q4-6H PRN #1 inhaler 04/20/16 [Rx] Levothyroxine [Synthroid] 1 tab PO DAILY #30 tablet 08/09/17 [Rx] Nivolumab [Opdivo] 100 mg IV QMONTH 10/22/17 [History] Terbinafine [Lamisil At] 12 gm TP AD 10/22/17 [History] Pregabalin [Lyrica] 50 mg PO BID 30 Days #60 capsule 11/14/17 [Rx] Morphine Immed Rel [Morphine Sulfate] 15 - 30 mg PO Q4HR PRN 10 Days #120 tab 11/22/17 [Rx] Morphine Sulfate SR (12 HR) [MS Contin] 1 tab PO Q12HR 30 Days #60 tab 11/22/17 [Rx] Amoxicillin/Clavulanate [Augmentin] 1 tab PO BID #10 tablet 12/12/17 [Rx] predniSONE [PredniSONE] 1 tab PO AD #9 tablet 12/12/17 [Rx] Furosemide [Lasix] 20 mg PO DAILY PRN 12/18/17 [History] Allergy/AdvReac Type Severity Reaction Status Date / Time No Known Allergies Allergy Verified 12/12/17 13:35 All Systems: The remainder of the systems were reviewed and are negative Review of Systems: Constitutional: Reports subjective fevers, chills HEENT: Denies headache, trauma, blurry vision, eye discharge, ear pain, ear discharge neck pain, sore throat, rhinorrhea Heart: Denies chest pain palpitations, LE edema Lungs: Denies shortness of breath cough Abdomen: Denies abdominal pain reports nausea, vomiting MSK: Denies back pain, falls, joint pain Kidney: Denies dysuria, hematuria Skin: Denies rash, ulcers Neuro: Denies numbness and tingling. Reports confusion Psych: denies axniety, depression Physical Examination - Vital Signs Vital Signs: Initial Vital Signs Temp Pulse Resp BP Pulse Ox 100.8 F H 104 20 118/79 94 12/17/17 00:49 12/17/17 00:49 12/17/17 00:49 12/17/17 00:49 12/17/17 00:49 - Constitutional General appearance: uncomfortable, acutely ill - Neurologic Sensorimotor examination: intact Detailed motor examination: grossly full strength in all extremities, full strength in all major muscle groups Motor examination - right side: 5/5: deltoids, biceps, triceps, wrist flexion, wrist extension, drafter electrical, hip flexors, tibialis Anterior, quadriceps, toe extension (EHL), plantarflexion Motor examination - left side: 5/5: deltoids, biceps, triceps, wrist flexion, wrist extension, hip flexors, drafter electrical, quadriceps, tibialis Anterior, toe extension (EHL), plantarflexion Detailed sensory examination: intact Reflex and gait examination: other (Gait not tested) Reflexes: Biceps: 2+, Triceps: 2+, Brachioradialis: 2+, Patella: 2+, Achilles: 2+ Mental Status Examination: awake, alert, oriented to person, oriented to place, follows commands appropriately, opens eyes to voice, not reliable historian Cranial nerve examination: PERRL, EOMI, sensory to face intact, no facial asymmetry is present, no dysarthria, hearing is intact symmetrically, soft palate elevates bilaterally upon phonation, flexes SCM and trapezius muscles symmetrically with full power, tongue protrudes midline, no atrophy or facial fasiculations present Cerebellar examination: no dysmetria Results - Laboratory Findings CBC and BMP: 12/18/17 04:25 12/18/17 04:25 Abnormal lab findings: Abnormal lab results RDW 15.0 % (11.5-14.5) H 12/18/17 04:25 Plt Count 106 K/mcL (140-400) L 12/18/17 04:25 PT 13.3 Seconds (9.4-12.1) H 12/17/17 01:54 POC Glucose 120 mg/dL (70-99) H 12/17/17 21:00 Calcium 8.4 mg/dL (8.6-10.3) L 12/18/17 04:25 Phosphorus 2.4 mg/dL (2.7-4.5) L 12/18/17 04:25 Troponin I 0.06 ng/mL (< 0.04) H* 12/17/17 12:41 HDL Cholesterol 27 mg/dL (40-59) L 12/18/17 04:25 Cholesterol/HDL Ratio 5.6 (0-4.9) H 12/18/17 04:25 Total Testosterone 107 ng/dL (280-1100) L 12/18/17 04:25 Ur Specific [place] 1.030 (1.010-1.025) H 12/17/17 05:38 Consult Discharge Plan - Plan Referrals: Maxine Delatorre, [employer] MANAGER [Primary Care Provider] - <Anastasia Arcos I - Last Filed: 12/18/17 16:23> Assessment and Plan (1) Acute encephalopathy Current Visit: Yes Status: Acute Pt was seen and examined, my medical decision was reviewed with the Resident Physician, I agree with the documented findings, disposition and treatment plas as described except to the extent set forth below. Patient noted to have this fluctuating mental status already been evaluated by ID service is on broad-spectrum antibiotics as well as acyclovir MRI of the brain was reviewed though he did not show any acute ischemic changes but there is a concern of some white matter changes and some mild DWI changes in the left temporal lobe that sometime could be seen with herpes encephalitis but on the other hand as the findings are not really conspicuous could be a artifact Regardless patient need spinal tap , currently he is on acyclovir suggested to continue we will proceed with a spinal tap at the best side probably would be a difficult tap considering patient mental status as well as body habitus , will try at bedside if not possible we will do it in the IR And discussed with the primary team Anastasia Arcos MD History of Present Illness HPI: Mr. Ricardo is a 67 year old male All Systems: The remainder of the systems were reviewed and are negative Physical Examination - Vital Signs Vital Signs: Initial Vital Signs Temp Pulse Resp BP Pulse Ox 100.8 F H 104 20 118/79 94 12/17/17 00:49 12/17/17 00:49 12/17/17 00:49 12/17/17 00:49 12/17/17 00:49 Results - Laboratory Findings CBC and BMP: 12/18/17 04:25 12/18/17 04:25 Abnormal lab findings: Abnormal lab results RDW 15.0 % (11.5-14.5) H 12/18/17 04:25 Plt Count 106 K/mcL (140-400) L 12/18/17 04:25 PT 13.3 Seconds (9.4-12.1) H 12/17/17 01:54 POC Glucose 120 mg/dL (70-99) H 12/17/17 21:00 Calcium 8.4 mg/dL (8.6-10.3) L 12/18/17 04:25 Phosphorus 2.4 mg/dL (2.7-4.5) L 12/18/17 04:25 Troponin I 0.06 ng/mL (< 0.04) H* 12/17/17 12:41 HDL Cholesterol 27 mg/dL (40-59) L 12/18/17 04:25 Cholesterol/HDL Ratio 5.6 (0-4.9) H 12/18/17 04:25 Total Testosterone 107 ng/dL (280-1100) L 12/18/17 04:25 Ur Specific [place] 1.030 (1.010-1.025) H 12/17/17 05:38
[2017-12-18] MEDS ORDERED: Acetaminophen 650 MG RECTAL SUPP RC PRN (14:00)
--- NOTE | 2017-12-18 14:19 | Oncology Inp Progress Note ---
<Darling Enrique L - Last Filed: 12/18/17 17:36> Date of Encounter: 12/18/17 Time of Encounter: 14:00 (1) Adenocarcinoma of lung Current Visit: No Status: Chronic Assessment and plan: Recurrent non-small cell lung cancer (adenocarcinoma), currently on second line of treatment with Nivolumab 480 mg IV Q4 weeks since 07/26/2017 (previously on Nivolumab 240 mg IV Q2 weeks initiated 01/08/2017). Last nivolumab treatment was 12/12/2017. ID and Neurology have been consulted, appreciate recommendations. 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 If this is confirmed, immunotherapy would be permanently discontinued Qualifiers: Laterality: right Qualified Code(s): C34.91 - Malignant neoplasm of uns pecified part of right bronchus or lung (2) Lightheaded Current Visit: Yes Status: Acute Assessment and plan: CT of the head and MRI brain (still in prelim reading) is negative for acute abnormality or intracranial metastatic disease TSH and random cortisol normal Plan: Awaiting 24 hour cortisol ID and neurology consulted Likely secondary to sepsis, dehydration (3) Sepsis Current Visit: Yes Status: Acute Assessment and plan: Febrile overnight, TMAX 102.9, with nausea, vomiting and worsening encephal opathy ID and Neurology have been consulted 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 CT chest pending Currently on Vancomycin, cefepime and zosyn Qualifiers: Pneumonia type: due to unspecified organism Laterality: right Lung location: lower lobe of lung Qualified Code(s): J18.1 - Lobar pneumonia, unspecified organism Oncology: Subj Interval history: Mr. Ricardo became increasingly confused overnight with increased fevers (TMAX 102.9) nausea and vomiting. He is drowsy at times during my assessment and requi res redirection secondary to impaired attention. He is able to follow commands. He is oriented to person and place. He cannot recall events overnight. - Constitutional Vitals: Vital Signs Temp Pulse Resp BP Pulse Ox 12/18/17 11:19 102.6 F H 97 24 135/78 94 12/18/17 09:36 100.5 F H 79 22 150/81 96 12/18/17 08:42 102.9 F H 98 20 157/87 96 12/18/17 07:40 100.3 F H 95 20 153/88 98 12/18/17 06:19 99.4 F 92 22 149/89 99 12/18/17 05:00 100.3 F H 97 26 148/85 100 12/18/17 04:00 100.1 F H 97 24 142/89 98 12/18/17 02:52 100.1 F H 104 18 155/90 94 12/18/17 02:25 98 12/18/17 01:49 101.8 F H 12/18/17 01:45 144/94 12/18/17 01:42 100.4 F H 151/101 12/18/17 01:36 100.7 F H 102 22 158/103 98 12/18/17 00:38 102.1 F H 99 24 152/95 95 12/17/17 23:47 100.8 F H 12/17/17 21:56 101.6 F H 103 16 138/90 97 12/17/17 21:02 101.6 F H 96 18 125/84 97 12/17/17 19:06 100.3 F H 97 16 121/69 98 12/17/17 15:47 99.0 F 90 16 143/84 95 Intake and Output 12/17/17 12/18/17 12/18/17 23:59 07:59 15:59 Intake Total 1200 / 1200 100 / 100 Output Total 1200 / 1200 100 / 100 Balance 0 / 0 0 / 0 Intake: IV Fluids 1200 / 1200 100 / 100 0.9 % Sodium Chloride 1,000 ML 1000 / 1000 @ 75 mls/hr IVC .[id number] [facility] Rx #:[id number] Ofirmev 1,000 mg/100 ml 1,000 100 / 100 100 / 100 mg In 100 ml @ 400 mls/hr IVPB ONCE ONE Rx#:[id number] Zosyn 3.375 GM In 0.9 % Sodium 100 / 100 Chloride (Mini-Bag +) 100 ML @ 25 mls/hr IVPB Q8HR [facility] Rx#: [id number] Output: Urine 600 / 600 Emesis 600 / 600 100 / 100 Other: # Voids 1 Weight 133.9 kg Blood Glucose* 120 Patient Weight 12/18/17 23:59 Weight 133.9 kg General appearance: febrile, disheveled, no acute distress, obese - Head Head exam: Present: atraumatic - ENT Additional comments: ulcerated areas bilaterally of buccal mucosa with some granulation tissue - Respiratory Respiratory exam: Present: rhonchi. Absent: respiratory distress - Cardiovascular Cardiovascular exam: Present: RRR, +S1, +S2 - GI/Abdominal GI/Abdominal exam: Present: normal bowel sounds, soft. Absent: tenderness Additional comments: colostomy LLQ with soft brown stool in bag - Extremities Exam Extremities exam: Absent: calf tenderness - Neurological Exam Neurological exam: Present: alert, no focal deficits, strengths equal and symetr throughout Additional comments: inattentive, poor memory recall, oriented to person and place, no meningeal signs - Skin Skin exam: Present: diaphoretic, normal color, warm Oncology: Obj Data - Labs CBC & Chem 7: 12/18/17 04:25 12/18/17 04:25 - Impressions Impressions Chest X-Ray 12/17/17 07:32 IMPRESSION: Right lung pleuroparenchymal abnormality favored to be chronic and posttreatment related when compared with prior imaging. Difficult to exclude superimposed acute infectious airspace disease. D/ / Gary Marcano / Gary Marcano Interpreting Provider: Gary Marcano Echocardiogram 12/17/17 07:36 Impressions: Technically challenging due to body habitus. LVEF 60-65%. Not all LV wall segments were well visualized even with use of Definity. Mild left ventricular diastolic dysfunction. Normal right ventricular structure and function. Mild tricuspid regurgitation. - ABG Interpretation ABG results: PT/INR, D-dimer PT 13.3 Seconds (9.4-12.1) H 12/17/17 01:54 Consult Discharge Plan - Plan Referrals: Maxine Delatorre, SENIOR ENERGY ANALYST [Primary Care Provider] - <Candace,Ronak S - Last Filed: 12/18/17 21:41> - Constitutional Vitals: Vital Signs Temp Pulse Resp BP Pulse Ox 12/18/17 20:52 101.1 F H 12/18/17 19:07 103.2 F H 88 20 150/82 99 12/18/17 14:48 99.9 F H 94 20 147/70 98 12/18/17 11:19 102.6 F H 97 24 135/78 94 12/18/17 09:36 100.5 F H 79 22 150/81 96 12/18/17 08:42 102.9 F H 98 20 157/87 96 12/18/17 07:40 100.3 F H 95 20 153/88 98 12/18/17 06:19 99.4 F 92 22 149/89 99 12/18/17 05:00 100.3 F H 97 26 148/85 100 12/18/17 04:00 100.1 F H 97 24 142/89 98 12/18/17 02:52 100.1 F H 104 18 155/90 94 12/18/17 02:25 98 12/18/17 01:49 101.8 F H 12/18/17 01:45 144/94 12/18/17 01:42 100.4 F H 151/101 12/18/17 01:36 100.7 F H 102 22 158/103 98 12/18/17 00:38 102.1 F H 99 24 152/95 95 12/17/17 23:47 100.8 F H 12/17/17 21:56 101.6 F H 103 16 138/90 97 Intake and Output 12/18/17 12/18/17 12/19/17 08:59 16:59 00:59 Intake Total 1200 / 1200 100 / 100 2190 / 2190 Output Total 1200 / 1200 300 / 300 675 / 675 Balance 0 / 0 -200 / -200 1515 / 1515 Intake: IV Fluids 1200 / 1200 100 / 100 2190 / 2190 0.9 % Sodium Chloride 1,000 ML 1000 / 1000 1000 / 1000 @ 75 mls/hr IVC .[id number] [facility] Rx #:[id number] Maxipime 2,000 MG In Water for 20 / 20 inj. (sterile) 20 ML @ 300 mls/ hr IVP Q8HR [facility] Rx#:[id number] Ofirmev 1,000 mg/100 ml 1,000 100 / 100 100 / 100 100 / 100 mg In 100 ml @ 400 mls/hr IVPB Q6HR [facility] Rx#:[id number] Zovirax 1,000 MG In Dextrose 5% 120 / 120 100 ML @ 96.774 mls/hr IVPB Q8H [facility] Rx#:[id number] Flagyl Premix 500 MG/100 ML 500 100 / 100 mg In 100 ml @ 100 mls/hr IVPB Q8HR [facility] Rx#:[id number] Zosyn 3.375 GM In 0.9 % Sodium 100 / 100 100 / 100 Chloride (Mini-Bag +) 100 ML @ 25 mls/hr IVPB Q8HR [facility] Rx#: [id number] Vancocin 1,500 MG In 0.9 % 250 / 250 Sodium Chloride 250 ML @ 166. 667 mls/hr IVPB Q12H [facility] Rx#: [id number] Output: Urine 600 / 600 200 / 200 250 / 250 Emesis 600 / 600 100 / 100 175 / 175 Catheter 250 / 250 Urethral (Abdi) 250 / 250 Other: Weight 133.9 kg Patient Weight 12/19/17 00:59 Weight 133.9 kg Oncology: Obj Data - Labs CBC & Chem 7: 12/18/17 04:25 12/18/17 04:25 Labs: Laboratory Results - last 24 hr 12/17/17 12/17/17 12/17/17 10:51 15:49 21:00 WBC RBC Hgb Hct MCV MCH MCHC RDW Plt Count MPV Immature Gran % Seg Neutrophils % Lymphocytes % Monocytes % Eosinophils % Basophils % Neutrophils # Lymphocytes # Monocytes # Eosinophils # Basophils # Sodium Potassium Chloride Carbon Dioxide BUN Creatinine Est GFR ( Amer) Est GFR (Non-Af Amer) BUN/Creatinine Ratio Glucose POC Glucose 92 123 H 120 H Est Mean Plasma Glucose Hemoglobin A1c Calculated Osmolality Lactic Acid Calcium Phosphorus Magnesium Ammonia Triglycerides Cholesterol LDL Cholesterol, Calc VLDL Cholesterol, Calc HDL Cholesterol Cholesterol/HDL Ratio Vitamin B12 TSH Total Testosterone Random Cortisol Chlamy pneumoniae PCR Adenovirus (PCR) B. pertussis DNA (PCR) B.parapertussis DNA PCR Coronavirus OC43 (PCR) Coronavirus HKU1 (PCR) Coronavirus 229E (PCR) Coronavirus NL63 (PCR) Human Metapneumovir PCR Influenza A (H1) PCR Influ A (H1N1/09) PCR Influenza A (H3) PCR Influenza A Untype (PCR) Influenza Type B (PCR) M.pneumoniae DNA (PCR) Parainfluenza 1 (PCR) Parainfluenza 2 (PCR) Parainfluenza 3 (PCR) Parainfluenza 4 (PCR) RSV (PCR) Entero/Rhino (PCR) 12/17/17 12/18/17 12/18/17 23:45 04:20 04:25 WBC 9.5 RBC 4.31 Hgb 13.1 D Hct 40.6 MCV 94.2 MCH 30.4 MCHC 32.3 RDW 15.0 H Plt Count 106 L MPV 10.7 Immature Gran % 0.3 Seg Neutrophils % 83.4 Lymphocytes % 9.8 Monocytes % 6.1 Eosinophils % 0.1 Basophils % 0.3 Neutrophils # 7.9 Lymphocytes # 0.9 Monocytes # 0.6 Eosinophils # 0.0 Basophils # 0.0 Sodium Potassium Chloride Carbon Dioxide BUN Creatinine Est GFR ( Amer) Est GFR (Non-Af Amer) BUN/Creatinine Ratio Glucose POC Glucose Est Mean Plasma Glucose Hemoglobin A1c Calculated Osmolality Lactic Acid 0.8 Calcium Phosphorus Magnesium Ammonia 39 Triglycerides Cholesterol LDL Cholesterol, Calc VLDL Cholesterol, Calc HDL Cholesterol Cholesterol/HDL Ratio Vitamin B12 TSH Total Testosterone Random Cortisol Chlamy pneumoniae PCR Adenovirus (PCR) B. pertussis DNA (PCR) B.parapertussis DNA PCR Coronavirus OC43 (PCR) Coronavirus HKU1 (PCR) Coronavirus 229E (PCR) Coronavirus NL63 (PCR) Human Metapneumovir PCR Influenza A (H1) PCR Influ A (H1N1/09) PCR Influenza A (H3) PCR Influenza A Untype (PCR) Influenza Type B (PCR) M.pneumoniae DNA (PCR) Parainfluenza 1 (PCR) Parainfluenza 2 (PCR) Parainfluenza 3 (PCR) Parainfluenza 4 (PCR) RSV (PCR) Entero/Rhino (PCR) 12/18/17 12/18/17 12/18/17 04:25 04:25 04:25 WBC RBC Hgb Hct MCV MCH MCHC RDW Plt Count MPV Immature Gran % Seg Neutrophils % Lymphocytes % Monocytes % Eosinophils % Basophils % Neutrophils # Lymphocytes # Monocytes # Eosinophils # Basophils # Sodium 141 Potassium 4.1 Chloride 107 Carbon Dioxide 27 BUN 17 Creatinine 1.14 Est GFR ( Amer) > 60 Est GFR (Non-Af Amer) > 60 BUN/Creatinine Ratio 15 Glucose 98 POC Glucose Est Mean Plasma Glucose 108 Hemoglobin A1c 5.4 Calculated Osmolality 294 Lactic Acid Calcium 8.4 L Phosphorus 2.4 L Magnesium 1.6 Ammonia Triglycerides 147 Cholesterol 150 LDL Cholesterol, Calc 94 VLDL Cholesterol, Calc 29 HDL Cholesterol 27 L Cholesterol/HDL Ratio 5.6 H Vitamin B12 TSH 0.403 Total Testosterone Random Cortisol 13.5 Chlamy pneumoniae PCR Adenovirus (PCR) B. pertussis DNA (PCR) B.parapertussis DNA PCR Coronavirus OC43 (PCR) Coronavirus HKU1 (PCR) Coronavirus 229E (PCR) Coronavirus NL63 (PCR) Human Metapneumovir PCR Influenza A (H1) PCR Influ A (H1N1) PCR Influenza A (H3) PCR Influenza A Untype (PCR) Influenza Type B (PCR) M.pneumoniae DNA (PCR) Parainfluenza 1 (PCR) Parainfluenza 2 (PCR) Parainfluenza 3 (PCR) Parainfluenza 4 (PCR) RSV (PCR) Entero/Rhino (PCR) 12/18/17 12/18/17 12/18/17 04:25 04:25 11:53 WBC RBC Hgb Hct MCV MCH MCHC RDW Plt Count MPV Immature Gran % Seg Neutrophils % Lymphocytes % Monocytes % Eosinophils % Basophils % Neutrophils # Lymphocytes # Monocytes # Eosinophils # Basophils # Sodium Potassium Chloride Carbon Dioxide BUN Creatinine Est GFR ( Amer) Est GFR (Non-Af Amer) BUN/Creatinine Ratio Glucose POC Glucose Est Mean Plasma Glucose Hemoglobin A1c Calculated Osmolality Lactic Acid Calcium Phosphorus Magnesium Ammonia Triglycerides Cholesterol LDL Cholesterol, Calc VLDL Cholesterol, Calc HDL Cholesterol Cholesterol/HDL Ratio Vitamin B12 722 TSH Total Testosterone 107 L Random Cortisol Chlamy pneumoniae PCR Not Detected Adenovirus (PCR) Not Detected B. pertussis DNA (PCR) Not Detected B.parapertussis DNA PCR Not Detected Coronavirus OC43 (PCR) Not Detected Coronavirus HKU1 (PCR) Not Detected Coronavirus 229E (PCR) Not Detected Coronavirus NL63 (PCR) Not Detected Human Metapneumovir PCR Not Detected Influenza A (H1) PCR Not Detected Influ A (H1N1/) PCR Not Detected Influenza A (H3) PCR Not Detected Influenza A Untype (PCR) Not Detected Influenza Type B (PCR) Not Detected M.pneumoniae DNA (PCR) Not Detected Parainfluenza 1 (PCR) Not Detected Parainfluenza 2 (PCR) Not Detected Parainfluenza 3 (PCR) Not Detected Parainfluenza 4 (PCR) Not Detected RSV (PCR) Not Detected Entero/Rhino (PCR) Not Detected - Impressions Impressions Echocardiogram 12/17/17 07:36 Impressions: Technically challenging due to body habitus. LVEF 60-65%. Not all LV wall segments were well visualized even with use of Definity. Mild left ventricular diastolic dysfunction. Normal right ventricular structure and function. Mild tricuspid regurgitation. Chest CT 12/18/17 17:00 IMPRESSION: Postsurgical changes of the bilateral lungs with progressive volume loss and architectural distortion involving the right lung. Areas of ground-glass opacity and interlobular septal thickening at the right lung base are favored to reflect mild asymmetric edema and/or lymphatic congestion, in part owing to postsurgical changes. No substantial change in size of ascending thoracic aortic aneurysm measuring 5.2 cm. Recommend nonemergent vascular surgery consultation if the patient is not already being followed. Also recommend follow-up imaging in 6 months assuming clinical stability. No substantial change in 13 mm right lower lobe pulmonary nodule. No new or enlarging nodule. D/ / 12/18/2017 19:05:43 Gary Marcano / [email or web address] Interpreting Provider: Gary Marcano - ABG Interpretation ABG results: PT/INR, D-dimer PT 13.3 Seconds (9.4-12.1) H 12/17/17 01:54 Inpatient Charges Provider: Dr. Lenny Maria Follow up - Inpatient: [id number] - Attending Attestation I examined this patient and my medical decision-making was reviewed with the Advanced Practice Nurse. I agree with the documented findings, disposition and treatment plan as described except to the extent set forth below. He developed headache, confusion, nausea and vomiting overnight along with fever. 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 Given presentation and timing from nivolumab, again voice concern this may be related as this is reported with checkpoint inhibitors. Will start on prednisone 120 mg daily pending CSF evaluation. Continue with infectious workup as well. Appreciate assistance from ID and neurology.
[2017-12-18] MEDS ORDERED: Levalbuterol Neb 1.25 MG/3 ML IH SCH (16:00)
--- NOTE | 2017-12-18 16:10 | Procedure Note ---
Date of procedure: 12/18/17 Pre-op diagnosis: sepsis, acute encephalopathy Post-op diagnosis: same Procedure: Informed consent was obtained from patient's daughter. Patient's lumbar spine area was prepped and draped in usual sterile fashion. One percent lidocaine was used to anesthetize local area. 22-gauge spinal needle was inserted in the L3- L4 interspace. 3 attempts were made unsuccessfully. Procedure was aborted. Dr. Arcos supervised the entire procedure. Anesthesia: local Surgeon: Fco Adame Was there an registered dental assistant rda present: Yes Certified Appliance Service Technician: Anastasia Arcos Estimated blood loss (cc): 2 Specimen: none Pathology: none sent Condition: stable Disposition: floor
[2017-12-18] MEDS: Cefepime HCl 2,000 MG in Water for inj. (sterile) 20 ML 20 ML IVP SCH ×2 (17:58→23:32)
[2017-12-18] MEDS ORDERED: predniSONE 20 MG TABLET PO SCH (18:00)
[2017-12-18] MEDS: MetroNIDAZOLE 500 MG/100 ML 500 MG/100 ML BAG IVPB SCH ×2 (18:00→23:33)
[2017-12-18] MEDS: Acetaminophen IV 1,000 MG/100 ML INFUS..BTL IVPB PRN (20:00)
[2017-12-18] MEDS: Acyclovir 1,000 MG in D5% in Water 250 ML IVPB SCH (20:24)
[2017-12-18] MEDS ORDERED: traMADol 50 MG TABLET PO ONE (23:20)
[2017-12-19] MEDS: Acetaminophen IV 1,000 MG/100 ML INFUS..BTL IVPB PRN (02:17)
[2017-12-19] MEDS: Acyclovir 1,000 MG in D5% in Water 250 ML IVPB SCH ×3 (04:01→20:37)
[2017-12-19 04:38] LABS: Basophils % 0.3 %; Hematocrit 39.7 % (37.5-50.1); Hemoglobin 12.9 g/dL (12.9-16.9); Immature Granulocytes % 0.3 % (0-4); Lymphocytes # 0.6 K/mcL (0.6-4.6); Lymphocytes % 8.5 %; Mean Corpuscular HGB Conc 32.5 g/dL (31.6-35.5); Mean Corpuscular Hemoglobin 30.4 pg (28.0-33.3); Mean Corpuscular Volume 93.6 fL (83.0-100.0); Mean Platelet Volume 10.7 fL (9.4-12.4); Monocytes # 0.6 K/mcL (0.0-1.3); Monocytes % 8.4 %; Neutrophils # 6.1 K/mcL (1.6-8.9); Platelet Count 101 K/mcL (140-400); Red Blood Count 4.24 M/mcL (4.19-5.50); Red Cell Distribution Width 14.9 % (11.5-14.5); Segmented Neutrophils % 82.5 %
[2017-12-19 04:58] LABS: BUN/Creatinine Ratio 15 (6-26); Blood Urea Nitrogen 19 mg/dL (8-23); Calcium 8.8 mg/dL (8.6-10.3); Carbon Dioxide 30 mEq/L (23-29); Chloride 108 mEq/L (98-107); Glucose 122 mg/dL (70-105); Osmolality,Calculated 302 (280-300); Potassium 3.6 mEq/L (3.5-5.1); Sodium 144 mEq/L (136-145); eGFR For Non-African Americans 55 (> 60)
[2017-12-19 05:43] LABS: Magnesium 1.6 mg/dL (1.6-2.6); Phosphorous 1.9 mg/dL (2.7-4.5)
[2017-12-19] MEDS ORDERED: methylPREDNISolone 125 MG/2 ML VIAL IVP ONE (08:41)
[2017-12-19] MEDS: MetroNIDAZOLE 500 MG/100 ML 500 MG/100 ML BAG IVPB SCH ×2 (08:50→17:43)
[2017-12-19] MEDS: Cefepime HCl 2,000 MG in Water for inj. (sterile) 20 ML 20 ML IVP SCH ×2 (08:51→16:30)
[2017-12-19] MEDS: Aspirin Enteric Coated 81 MG Tablet PO SCH ×2 (08:51→10:08)
[2017-12-19] MEDS: *HR* Heparin 5,000 UNIT/ML VIAL SQ SCH ×2 (08:52→16:19)
--- NOTE | 2017-12-19 09:02 | Internal Med Progress Note ---
<Jazz Flores - Last Filed: 12/19/17 15:06> Hospitalist Progress Note - Encounter Date of Encounter: 12/19/17 Time of Encounter: 08:54 - Subjective Interval History: 67M PMH Metastatic primary lung Ca presented with LH/Dizziness admitted with 3 sepsis criteria. Normothermic now. Head CT/MRI negative. Neuro on board. Trop elevated 0.07 - 0.08 - 0.06, denies CP. EKG negative for ischemic changes. LP by IR today showed cells 167, protein 101, suggesting an immune-mediated mechanism. Will start Solumedrol IV. BC/Port cultures pending from 12/17. Cr 1.53 at admission, 1.31 today. Resp panel negative. On Vanc/Cefipime/Acylovir. Followed by ID. RLL PNA. AJAY Cardenas, Pharmacy dosing Vanc for goal trough 15. Cefepime 2g IV Q8. FLagyl 500mg IV TID. Morbid obestiy. N/V. CT ABd/Pelvis negative for acute abn. Oncology suggests immune mediated encepahlitis and if true, would d/c immunotherapy. Abdi in place since last night to collect 24 hour cortisol. Left leg ulcer with simple bandaid present, wound consult placed. - Exam Vitals: Temp Pulse Resp BP Pulse Ox 98.9 F 85 18 163/91 99 12/19/17 07:09 12/19/17 07:09 12/19/17 07:09 12/19/17 07:09 12/19/17 07:09 Exam: Gen:Confused, not oriented to person, place, or time. Can identify daughter by name when she walked in the room. Eyes closed, moving restlessly in bed. ENT: mucous membranes moist Cardio: RRR no m/r/g Pulm: CTAB A/P no wheezes Abd: Normoactive bowel sounds, does not complain of pain on palpation Extremities: Leg ulcer behind left knee, scabbed abrasions healing on left posterior tibialis area, and on dorsal aspect of left foot. Right extremity unremarkable. Pt withdraws from palpation of either LE. Skin: Warm, dry, intact with exception of noted above in extremities Neuro: delerium, not able to perform exam - Assessment and Plan (1) Encephalopathy Current Visit: Yes Status: Acute Assessment and Plan: -possibly viral -no nuchal rigidity -CT and MRI head both non-acute -LP pending by IR today at noon -LP cultures pending -start acyclovir 10 mg/kg IV Q8h; appreciate pharm recs -Neurology on board -monitor mental status (2) CHF (congestive heart failure) Current Visit: No Status: Chronic Assessment and Plan: -h/o CHF, unknown which type -echo 12/17/17: EF 60-65%, mild LV diastolic dysfunction -monitor (3) Adenocarcinoma of lung Current Visit: No Status: Chronic Assessment and Plan: - On Opdivo therapy, last injection 12/12/17 - follows outpt with oncology - oncology onboard during this admission (4) Sepsis Current Visit: Yes Status: Acute Assessment and Plan: - Blood cultures from peripheral and port pending from 12/17/17 - UA unremarkable - last lactic acid 0.8, repeat pending - cryptococcal antigen negative - flu swab negative - tylenol 1000mg PRN Q6 - Vanc dosing by pharmacy, trough 15 - cefepime 2g Q8 - Acyclovir 1g Q8 - Flagyl 500mg Q8 - ID on board (5) Ulcer of left lower extremity with fat layer exposed Current Visit: No Status: Acute Assessment and Plan: - wound dressed with simple bandage - unspecified chronicity - wound care consult (6) Elevated troponin Current Visit: Yes Status: Acute Assessment and Plan: - Could be demand ischemia due to sepsis, could be kidney related - negative (7) Fever Current Visit: Yes Status: Acute Assessment and Plan: Tmax 98.6 overnight - see sepsis plan (8) Ejjrk-nl-qyhtgbs kidney injury Current Visit: Yes Status: Acute Assessment and Plan: -waxing and waning - up from 1.14 yesterday to 1.31 today -CT a/p: 9mm R adrenal mass, stable; stable colectomy and colostomy -random cortisol 13.5 (wnl) -I/O 2200/1800ml since admit -collecting 24h urine started yesterday -continue to monitor daily labs (9) Lightheaded Current Visit: Yes Status: Acute Assessment and Plan: -likely 2/2 dehydration -continue neuro checks -MRI non-acute, will not consult neuro at this time -A1c 5.4 -TSH 0.403 -lipid panel unremarkable -Flu A/B negative -monitor BP status -follow up orthostatics -monitor (10) DVT prophylaxis Current Visit: No Status: Acute Assessment and Plan: 5000 u SQ hepatin TID d/t JORY DVT Prophylaxis: heparin 5000u Q8 - Time Spent with Patient Total time spent is greater than 50% in coordination of care (as documented) at patient's floor/unit and/or counseling patient: less than 15 minutes Plan of Care Discussed with: family Internal Medicine: Result - Labs CBC & Chem 7: 12/19/17 04:10 12/19/17 04:10 Labs: Short CBC 12/19/17 Range/Units 04:10 WBC 7.4 (4.3-11.1) K/mcL Hgb 12.9 (12.9-16.9) g/dL Hct 39.7 (37.5-50.1) % Plt Count 101 L (140-400) K/mcL Neutrophils # 6.1 (1.6-8.9) K/mcL BMP 12/19/17 04:10 Sodium 144 Potassium 3.6 Chloride 108 H Carbon Dioxide 30 H BUN 19 Creatinine 1.31 H Glucose 122 H Calcium 8.8 - ABG Interpretation ABG results: PT/INR, D-dimer PT 13.3 Seconds (9.4-12.1) H 12/17/17 01:54 - Impressions Impressions Abdomen/Pelvis CT 12/17/17 01:16 IMPRESSION: Stable postsurgical changes of the right lung base with volume loss and scarring. Stable noncalcified pulmonary nodules in both lung bases seen on recent prior chest CT. Stable 9 mm right adrenal nodule unchanged since at least 2016. Stable postsurgical changes from prior colectomy and colostomy with large peristomal hernia. No acute hernia complication. Large ventral abdominal wall hernias containing loops of bowel without acute hernia complication. No significant change since prior. No acute abnormality in the abdomen or pelvis to explain patient's symptoms of acute abdominal pain. D/ / 12/17/2017 08:10:40 Jassi Barksdale MD / jami Interpreting Provider: Jassi Barksdale MD Echocardiogram 12/17/17 07:36 Impressions: Technically challenging due to body habitus. LVEF 60-65%. Not all LV wall segments were well visualized even with use of Definity. Mild left ventricular diastolic dysfunction. Normal right ventricular structure and function. Mild tricuspid regurgitation. Chest CT 12/18/17 17:00 IMPRESSION: Postsurgical changes of the bilateral lungs with progressive volume loss and architectural distortion involving the right lung. Areas of ground-glass opacity and interlobular septal thickening at the right lung base are favored to reflect mild asymmetric edema and/or lymphatic congestion, in part owing to postsurgical changes. No substantial change in size of ascending thoracic aortic aneurysm measuring 5.2 cm. Recommend nonemergent vascular surgery consultation if the patient is not already being followed. Also recommend follow-up imaging in 6 months assuming clinical stability. No substantial change in 13 mm right lower lobe pulmonary nodule. No new or enlarging nodule. D/ / 12/18/2017 19:05:43 Gary Marcano / josué Interpreting Provider: Gary Marcano Consult Discharge Plan - Plan Referrals: Maxine Delatorre CNP [Primary Care Provider] - <John Taveras - Last Filed: 12/19/17 16:20> Hospitalist Progress Note - Exam Vitals: Temp Pulse Resp BP Pulse Ox 101.3 F H 87 22 154/89 97 12/19/17 14:19 12/19/17 13:44 12/19/17 13:44 12/19/17 13:44 12/19/17 13:44 - Assessment and Plan (1) Encephalitis Current Visit: Yes Status: Suspected (2) Non-small cell lung cancer Current Visit: Yes Status: Resolved (3) Sepsis Current Visit: Yes Status: Acute (4) Acute metabolic encephalopathy Current Visit: Yes Status: Acute (5) Chronic respiratory failure Current Visit: No Status: Chronic (6) AQUILES (obstructive sleep apnea) Current Visit: No Status: Chronic (7) Morbid obesity with BMI of 40.0-44.9, adult Current Visit: No Status: Chronic (8) Hypertension Current Visit: No Status: Chronic - Time Spent with Patient Total time spent is greater than 50% in coordination of care (as documented) at patient's floor/unit and/or counseling patient: Internal Medicine: Result - Labs CBC & Chem 7: 12/19/17 04:10 12/19/17 04:10 Labs: Short CBC 12/19/17 Range/Units 04:10 WBC 7.4 (4.3-11.1) K/mcL Hgb 12.9 (12.9-16.9) g/dL Hct 39.7 (37.5-50.1) % Plt Count 101 L (140-400) K/mcL Neutrophils # 6.1 (1.6-8.9) K/mcL BMP 12/19/17 04:10 Sodium 144 Potassium 3.6 Chloride 108 H Carbon Dioxide 30 H BUN 19 Creatinine 1.31 H Glucose 122 H Calcium 8.8 - ABG Interpretation ABG results: PT/INR, D-dimer PT 13.3 Seconds (9.4-12.1) H 12/17/17 01:54 - Impressions Impressions Abdomen/Pelvis CT 12/17/17 01:16 IMPRESSION: Stable postsurgical changes of the right lung base with volume loss and scarring. Stable noncalcified pulmonary nodules in both lung bases seen on recent prior chest CT. Stable 9 mm right adrenal nodule unchanged since at least 2016. Stable postsurgical changes from prior colectomy and colostomy with large peristomal hernia. No acute hernia complication. Large ventral abdominal wall hernias containing loops of bowel without acute hernia complication. No significant change since prior. No acute abnormality in the abdomen or pelvis to explain patient's symptoms of acute abdominal pain. D/ / 12/17/2017 08:10:40 Jassi Barksdale MD / jami Interpreting Provider: Jassi Barksdale MD Chest CT 12/18/17 17:00 IMPRESSION: Postsurgical changes of the bilateral lungs with progressive volume loss and architectural distortion involving the right lung. Areas of ground-glass opacity and interlobular septal thickening at the right lung base are favored to reflect mild asymmetric edema and/or lymphatic congestion, in part owing to postsurgical changes. No substantial change in size of ascending thoracic aortic aneurysm measuring 5.2 cm. Recommend nonemergent vascular surgery consultation if the patient is not already being followed. Also recommend follow-up imaging in 6 months assuming clinical stability. No substantial change in 13 mm right lower lobe pulmonary nodule. No new or enlarging nodule. D/ / 12/18/2017 19:05:43 Gary Marcano / josué Interpreting Provider: Gary Marcano Lumbar Puncture Fluoroscopy 12/19/17 10:12 IMPRESSION: Successful fluoroscopic-guided lumbar puncture. D/ / Ricky Nogueira MD / Ricky Nogueira MD Interpreting Provider: Ricky Nogueira MD - Attending Attestation I examined this patient and my medical decision-making was reviewed with the Resident Physician on 12/19/17. I agree with the documented findings, disposition and treatment plan as described except to the extent set forth below. Mr Ricardo is currently admitted for acute encephalopathy and fever. He remains moderate to high risk due to potential for worsening clinical status. Mr Ricardo is still confused. He is to have LP today. Had fever again last night. Remains on multiple antiinfectives. Steroids started as well. Exam alert Restless Mucus membranes dry Heart reg and not tachy now No wheeze abd soft I/P 1. Acute encephalopathy - concern for encephalitis. On multiple antiinfectives and steroids. Appreciate ID, neuro and onc help. 2. Lung cancer Further diagnoses and plan as above. Await results of LP. <Jazz Flores - Last Filed: 12/19/17 15:06> (3) Adenocarcinoma of lung Qualifiers: Laterality: right Qualified Code(s): C34.91 - Malignant neoplasm of unspecified part of right bronchus or lung (4) Sepsis Qualifiers: Sepsis type: sepsis due to unspecified organism Qualified Code(s): A41.9 - Sepsis, unspecified organism (7) Fever Qualifiers: Fever type: unspecified Qualified Code(s): R50.9 - Fever, unspecified (8) Dhjhk-qd-hirzjyv kidney injury Qualifiers: Acute renal failure type: unspecified Chronic kidney disease stage: stage 2 (mild) Qualified Code(s): N17.9 - Acute kidney failure, unspecified; N18.2 - Chronic kidney disease, stage 2 (mild) <John Taveras - Last Filed: 12/19/17 16:20> (2) Non-small cell lung cancer Qualifiers: Laterality: right Qualified Code(s): C34.91 - Malignant neoplasm of unspecified part of right bronchus or lung (3) Sepsis Qualifiers: Sepsis type: sepsis due to unspecified organism Qualified Code(s): A41.9 - Sepsis, unspecified organism (5) Chronic respiratory failure Qualifiers: Respiratory failure complication: hypoxia Qualified Code(s): J96.11 - Chronic respiratory failure with hypoxia (8) Hypertension Qualifiers: Hypertension type: essential hypertension Qualified Code(s): I10 - Essential (primary) hypertension
[2017-12-19] MEDS ORDERED: *HR* LORazepam 2 MG/ML VIAL IVP ONE (09:50)
[2017-12-19] MEDS ORDERED: *HR* Morphine 2 MG/ML SYRINGE IVP ONE (10:10)
--- NOTE | 2017-12-19 10:33 | Neurology Progress Note ---
<Fco Adame - Last Filed: 12/19/17 10:31> Date of Encounter: 12/19/17 (n) Time of Encounter: 10:31 Assessment and Plan (1) Sepsis Current Visit: Yes Status: Acute Patient had a MAXIMUM TEMPERATURE of 103.6 overnight. Currently he is afebrile Etiology is unclear. We are still attempting to obtain a lumbar puncture. Have discussed with fluoroscopy and he will undergo lumbar puncture in the afternoon. 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 He reports he still remains a bit confused in a fog. Plan as above. (3) Non-small cell lung cancer Current Visit: Yes Status: Resolved Qualifiers: Laterality: right Qualified Code(s): C34.91 - Malignant neoplasm of unspecified part of right bronchus or lung Subjective Principal diagnosis: Meningitis/encephalitis Interval history: No acute overnight events. Patient seems to have broken his fever this morning but did have a MAXIMUM TEMPERATURE of 103.6 at 2 AM. He is alert and oriented 3 however it is difficult at times for him to stay attentive. He continues to have jerking motions in his extremities are not tender time. He reports this confusion is same compared to yesterday. Objective - Constitutional Vitals: Temp Pulse Resp BP Pulse Ox 98.6 F 87 20 182/94 98 12/19/17 10:28 12/19/17 10:28 12/19/17 10:28 12/19/17 10:28 12/19/17 10:28 Exam: General: pleasant, appears uncomfortable Neck: nontender to palpation, absent lymphadenopathy, Cardiovascualr: Regular rate and rhythm with no murmur, absent gallops or rubs, absent pedal edema, radial pulses 2 out of 4 Lungs: Clear to auscultation bilaterally, not in respiratory distress Abdomen: Soft nontender, nondistended positive bowel sounds, absent hepatomegaly. Left ostomy bag intact MSK: absent clubbing, cyanosis, joints without swelling Psych: Anxious - Neurological Exam Sensorimotor examination: Present: intact Motor Examination: Present: grossly full strength in all extremities, full strength in all major muscle groups Motor examination - right side: 5: deltoids, biceps, triceps, wrist flexion, wrist extension, design engineer agricultural equipment, hip flexors, tibialis Anterior, quadriceps, toe extension (EHL), plantarflexion Motor examination - left side: 5: deltoids, biceps, triceps, wrist flexion, wrist extension, hip flexors, design engineer agricultural equipment, quadriceps, tibialis Anterior, toe extension (EHL), plantarflexion Sensation intact: Present: intact Reflexes: Biceps: 2+, Triceps: 2+, Brachioradialis: 2+, Patella: 2+, Achilles: 2+ Mental Status Examination: Present: awake, alert, oriented to person, oriented to place, follows commands appropriately, opens eyes to voice, not reliable historian Cranial nerve examination: Present: PERRL, EOMI, sensory to face intact, no facial asymmetry is present, no dysarthria, hearing is intact symmetrically, soft palate elevates bilaterally upon phonation, flexes SCM and trapezius muscles symmetrically with full power, tongue protrudes midline, no atrophy or facial fasiculations present Cerebellar examination: Present: no dysmetria Results - Laboratory Findings CBC and BMP: 12/19/17 04:10 12/19/17 04:10 Abnormal lab findings: Abnormal lab results RDW 14.9 % (11.5-14.5) H 12/19/17 04:10 Plt Count 101 K/mcL (140-400) L 12/19/17 04:10 PT 13.3 Seconds (9.4-12.1) H 12/17/17 01:54 Chloride 108 mEq/L (98-107) H 12/19/17 04:10 Carbon Dioxide 30 mEq/L (23-29) H 12/19/17 04:10 Creatinine 1.31 mg/dL (0.70-1.30) H 12/19/17 04:10 Est GFR (Non-Af Amer) 55 (> 60) L 12/19/17 04:10 Glucose 122 mg/dL (70-105) H 12/19/17 04:10 POC Glucose 120 mg/dL (70-99) H 12/17/17 21:00 Calculated Osmolality 302 (280-300) H 12/19/17 04:10 Phosphorus 1.9 mg/dL (2.7-4.5) L 12/19/17 04:10 Troponin I 0.06 ng/mL (< 0.04) H* 12/17/17 12:41 HDL Cholesterol 27 mg/dL (40-59) L 12/18/17 04:25 Cholesterol/HDL Ratio 5.6 (0-4.9) H 12/18/17 04:25 Total Testosterone 107 ng/dL (280-1100) L 12/18/17 04:25 Ur Specific Eldred 1.030 (1.010-1.025) H 12/17/17 05:38 Consult Discharge Plan - Plan Referrals: Maxine Delatorre, ESL TUTOR [Primary Care Provider] - <Anastasia Arcos I - Last Filed: 12/19/17 12:36> Assessment and Plan (1) Acute encephalopathy Current Visit: Yes Status: Acute (2) Acute metabolic encephalopathy Current Visit: Yes Status: Acute Pt was seen and examined, my medical decision was reviewed with the Resident Physician, I agree with the documented findings, disposition and treatment plas as described except to the extent set forth below. Failed bedside attempts for lumbar puncture yesterday as well as in fluoroscopy Continued to have fluctuating mental status No focal findings on examination MRI negative for any ischemia On broad-spectrum antibiotics as well as antiviral agent as per ID recommendations suggest to continue Also suggest getting an EEG due to fluctuating mental status, other possiblity could be of LIMBIC ENCEPHALITIS< if CSF is negative, though may not get the real picture as he is already on antibiotics for a while Anastasia Arcos MD Objective - Constitutional Vitals: Temp Pulse Resp BP Pulse Ox 100.8 F H 87 20 182/94 98 12/19/17 11:26 12/19/17 10:28 12/19/17 10:28 12/19/17 10:28 12/19/17 10:28 Results - Laboratory Findings CBC and BMP: 12/19/17 04:10 12/19/17 04:10 Abnormal lab findings: Abnormal lab results RDW 14.9 % (11.5-14.5) H 12/19/17 04:10 Plt Count 101 K/mcL (140-400) L 12/19/17 04:10 PT 13.3 Seconds (9.4-12.1) H 12/17/17 01:54 Chloride 108 mEq/L (98-107) H 12/19/17 04:10 Carbon Dioxide 30 mEq/L (23-29) H 12/19/17 04:10 Creatinine 1.31 mg/dL (0.70-1.30) H 12/19/17 04:10 Est GFR (Non-Af Amer) 55 (> 60) L 12/19/17 04:10 Glucose 122 mg/dL (70-105) H 12/19/17 04:10 POC Glucose 120 mg/dL (70-99) H 12/17/17 21:00 Calculated Osmolality 302 (280-300) H 12/19/17 04:10 Phosphorus 1.9 mg/dL (2.7-4.5) L 12/19/17 04:10 Troponin I 0.06 ng/mL (< 0.04) H* 12/17/17 12:41 HDL Cholesterol 27 mg/dL (40-59) L 12/18/17 04:25 Cholesterol/HDL Ratio 5.6 (0-4.9) H 12/18/17 04:25 Total Testosterone 107 ng/dL (280-1100) L 12/18/17 04:25 Ur Specific Eldred 1.030 (1.010-1.025) H 12/17/17 05:38
--- NOTE | 2017-12-19 10:35 | Infectious Disease Progress No ---
Date of Encounter: 12/19/17 Time of Encounter: 09:50 - Assessment and Plan (1) Sepsis Current Visit: Yes Status: Acute Severe sepsis: 3 sepsis criteria noted on admission with acute kidney injury and elevated troponin. Etiology unclear, but concern for meningoencephalitis given the clinical picture. White blood cell count has improved. The patient continues to have tachycardia, tachypnea, and high fevers overnight. His mental status continues to be altered. Blood cultures drawn 2 sets from peripheral stick and are NGTD 2 sets. Repeat blood cultures drawn on 12/17/17 from the patient's A-port are NGTD 2 sets. Flu antigen swab was negative. RIP was negative. Chest x-ray showed right lung pleural parenchymal abnormality favored to be inside sales consultant steffany in post treatment, but superimposed pneumonia cannot be excluded. CT abdomen and pelvis was negative for acute abnormality. CT and MRI of the head were also negative. CT chest negative for infectious etiology. Continue vancomycin IV. Pharmacy to dose. Goal trough approximately 15. Continue cefepime 2 g IV every 8 hours. Continue Flagyl 500 mg IV 3 times a day. Duration of treatment depends on the clinical picture. Monitor renal function dose adjust antibiotics. Qualifiers: Sepsis type: sepsis due to unspecified organism Qualified Code(s): A41.9 - Sepsis, unspecified organism (2) Acute encephalopathy Current Visit: Yes Status: Acute Etiology: Unclear. Concern for meningoencephalitis given the clinical picture. CT and MRI of the head are both negative for acute abnormality. Neurology consulted. Appreciate assistance. Attempted LP at bedside, but unsuccessful. Recommend IR to evaluate to attempt LP. If LP is performed, please send CSF for cell count with differential, protein, glucose, culture, HSV, VZV. The orders have been placed. Check cryptococcal antigen.--> negative. Continue acyclovir 10 mg/kg IV every 8 hours. Dosing discussed with Jung, Pharm.D. States will use adjusted body weight to maintain adequate drug levels. Monitor renal function and dose adjust vacations. Monitor closely for acute worsening of his mental status. (3) Pneumonia Current Visit: No Status: Ruled-out Chest x-ray showed right lung pleural parenchymal abnormality failure to be chronic and posttreatment related when compared to prior imaging, but difficult to exclude superimposed acute infectious airspace disease. CT chest negative for PNA. Check respiratory infectious panel.--> negative. Qualifiers: Pneumonia type: due to unspecified organism Laterality: right Lung location: lower lobe of lung Qualified Code(s): J18.1 - Lobar pneumonia, unspecified organism (4) Urrha-or-lmujvdd kidney injury Current Visit: Yes Status: Acute Likely secondary to sepsis. Improved initially, but creatinine back up a little today. Continue to trend. Monitor renal function and dose adjust antibiotics. Avoid nephrotoxins as able. Qualifiers: Acute renal failure type: unspecified Chronic kidney disease stage: stage 2 (mild) Qualified Code(s): N17.9 - Acute kidney failure, unspecified; N18.2 - Chronic kidney disease, stage 2 (mild) (5) Lightheaded Current Visit: Yes Status: Resolved Likely secondary to sepsis. CT and MRI of the head are both negative for acute abnormality. Neurology evaluation noted and appreciated. (6) Elevated troponin Current Visit: Yes Status: Acute Troponins elevated at 0.07, 0.08, 0.06. The patient denies any chest pain. Further workup and management per the primary team. (7) CHF (congestive heart failure) Current Visit: Yes Status: Chronic Qualifiers: Heart failure type: unspecified Heart failure chronicity: chronic Qualified Code(s): I50.9 - Heart failure, unspecified (8) CKD (chronic kidney disease) Current Visit: No Status: Chronic Qualifiers: Chronic kidney disease stage: stage 3 (moderate) Qualified Code(s): N18.3 - Chronic kidney disease, stage 3 (moderate) (9) Metastatic primary lung cancer Current Visit: Yes Status: Acute Diagnosed in 2013 with primary lung adenocarcinoma. Remote history of right upper lobe lobectomy. Positive for pulmonary nodules with evidence of metastatic disease in 2015. Status post wedge resection of the right lung nodules 4. Started onNivolumab [id number] in December 2016. Transitioned to Q4 week dosing in June 2017. Last dose 12/12/17. Hem/Onc consulted and following. Qualifiers: Laterality: unspecified laterality Qualified Code(s): C34.90 - Malignant neoplasm of unspecified part of unspecified bronchus or lung (10) Morbid obesity with BMI of 40.0-44.9, adult Current Visit: No Status: Chronic (11) Nausea and vomiting Current Visit: Yes Status: Resolved Etiology unclear. CT of the abdomen and pelvis negative for acute abnormality. Appears improved. Management per the primary team. Qualifiers: Vomiting type: unspecified Vomiting Intractability: unspecified Qualified Code(s): R11.2 - Nausea with vomiting, unspecified - Subjective Interval history: Patient seen and examined. No acute events noted overnight. Patient remains con fused and disoriented. No longer diaphoretic. Status post LP attempt yesterday by IR, but unsuccessful. Patient denies pain, shortness of breath, or cough at this time. Per sitter at bedside, patient now having jerking. ROS limited due to patient's mental status. Infect Dis PN-Objective Data - Labs CBC & Chem 7: 12/20/17 07:55 12/20/17 07:54 Labs: Laboratory Results - last 24 hr 12/17/17 12/17/17 12/18/17 10:51 15:49 11:53 WBC RBC Hgb Hct MCV MCH MCHC RDW Plt Count MPV Immature Gran % Seg Neutrophils % Lymphocytes % Monocytes % Eosinophils % Basophils % Neutrophils # Lymphocytes # Monocytes # Eosinophils # Basophils # Sodium Potassium Chloride Carbon Dioxide BUN Creatinine Est GFR ( Amer) Est GFR (Non-Af Amer) BUN/Creatinine Ratio Glucose POC Glucose 92 123 H Calculated Osmolality Calcium Phosphorus Magnesium Chlamy pneumoniae PCR Not Detected Adenovirus (PCR) Not Detected B. pertussis DNA (PCR) Not Detected B.parapertussis DNA PCR Not Detected Coronavirus OC43 (PCR) Not Detected Coronavirus HKU1 (PCR) Not Detected Coronavirus 229E (PCR) Not Detected Coronavirus NL63 (PCR) Not Detected Human Metapneumovir PCR Not Detected Influenza A (H1) PCR Not Detected Influ A (H1N1/09) PCR Not Detected Influenza A (H3) PCR Not Detected Influenza A Untype (PCR) Not Detected Influenza Type B (PCR) Not Detected M.pneumoniae DNA (PCR) Not Detected Parainfluenza 1 (PCR) Not Detected Parainfluenza 2 (PCR) Not Detected Parainfluenza 3 (PCR) Not Detected Parainfluenza 4 (PCR) Not Detected RSV (PCR) Not Detected Entero/Rhino (PCR) Not Detected 12/19/17 12/19/17 04:10 04:10 WBC 7.4 RBC 4.24 Hgb 12.9 Hct 39.7 MCV 93.6 MCH 30.4 MCHC 32.5 RDW 14.9 H Plt Count 101 L MPV 10.7 Immature Gran % 0.3 Seg Neutrophils % 82.5 Lymphocytes % 8.5 Monocytes % 8.4 Eosinophils % 0.0 Basophils % 0.3 Neutrophils # 6.1 Lymphocytes # 0.6 Monocytes # 0.6 Eosinophils # 0.0 Basophils # 0.0 Sodium 144 Potassium 3.6 Chloride 108 H Carbon Dioxide 30 H BUN 19 Creatinine 1.31 H Est GFR ( Amer) > 60 Est GFR (Non-Af Amer) 55 L BUN/Creatinine Ratio 15 Glucose 122 H POC Glucose Calculated Osmolality 302 H Calcium 8.8 Phosphorus 1.9 L Magnesium 1.6 Chlamy pneumoniae PCR Adenovirus (PCR) B. pertussis DNA (PCR) B.parapertussis DNA PCR Coronavirus OC43 (PCR) Coronavirus HKU1 (PCR) Coronavirus 229E (PCR) Coronavirus NL63 (PCR) Human Metapneumovir PCR Influenza A (H1) PCR Influ A (H1N1/09) PCR Influenza A (H3) PCR Influenza A Untype (PCR) Influenza Type B (PCR) M.pneumoniae DNA (PCR) Parainfluenza 1 (PCR) Parainfluenza 2 (PCR) Parainfluenza 3 (PCR) Parainfluenza 4 (PCR) RSV (PCR) Entero/Rhino (PCR) Cultures: Cultures 12/18/17 11:53 Cryptococcal Antigen - Final Serum 12/17/17 22:35 Blood Culture - Preliminary Port System Culture is incubating and being continuously monitored for growth. Final report to follow. 12/17/17 22:35 Blood Culture - Preliminary Port System Culture is incubating and being continuously monitored for growth. Final report to follow. 12/17/17 10:05 Influenza Types A,B Antigen - Final Nasopharyngeal 12/17/17 07:10 Blood Culture - Preliminary Peripheral Venipuncture Culture is incubating and being continuously monitor ed for growth. Final report to follow. 12/17/17 07:16 Blood Culture - Preliminary Peripheral Venipuncture Culture is incubating and being continuously monitored for growth. Final report to follow. Serology 12/18/17 12/17/17 Range/Units 11:53 05:38 Urine Color Yellow (Yellow) Urine Clarity Clear (Clear) Urine pH 5.5 (5.0-8.0) pH Units Ur Specific [place] 1.030 H (1.010-1.025) Urine Protein Negative (Neg-Trace) mg/dL Urine Glucose (UA) Normal (Normal) mg/dL Urine Ketones Negative (Negative) mg/dL Urine Blood Negative (Negative) Urine Nitrite Negative (Negative) Urine Bilirubin Negative (Negative) Urine Urobilinogen Normal (Normal) mg/dL Ur Leukocyte Esterase Negative (Negative) Ur Culture Indicated? NO (NO) Chlamy pneumoniae PCR Not Detected (Not Detect) Adenovirus (PCR) Not Detected (Not Detect) B. pertussis DNA (PCR) Not Detected (Not Detect) B.parapertussis DNA PCR Not Detected (Not Detect) Coronavirus OC43 (PCR) Not Detected (Not Detect) Coronavirus HKU1 (PCR) Not Detected (Not Detect) Coronavirus 229E (PCR) Not Detected (Not Detect) Coronavirus NL63 (PCR) Not Detected (Not Detect) Human Metapneumovir PCR Not Detected (Not Detect) Influenza A (H1) PCR Not Detected (Not Detect) Influ A (H1N1/09) PCR Not Detected (Not Detect) Influenza A (H3) PCR Not Detected (Not Detect) Influenza A Untype (PCR) Not Detected (Not Detect) Influenza Type B (PCR) Not Detected (Not Detect) M.pneumoniae DNA (PCR) Not Detected (Not Detect) Parainfluenza 1 (PCR) Not Detected (Not Detect) Parainfluenza 2 (PCR) Not Detected (Not Detect) Parainfluenza 3 (PCR) Not Detected (Not Detect) Parainfluenza 4 (PCR) Not Detected (Not Detect) RSV (PCR) Not Detected (Not Detect) Entero/Rhino (PCR) Not Detected (Not Detect) - Impressions Impressions Abdomen/Pelvis CT 12/17/17 01:16 IMPRESSION: Stable postsurgical changes of the right lung base with volume loss and scarring. Stable noncalcified pulmonary nodules in both lung bases seen on recent prior chest CT. Stable 9 mm right adrenal nodule unchanged since at least 2016. Stable postsurgical changes from prior colectomy and colostomy with large peristomal hernia. No acute hernia complication. Large ventral abdominal wall hernias containing loops of bowel without acute hernia complication. No significant change since prior. No acute abnormality in the abdomen or pelvis to explain patient's symptoms of acute abdominal pain. D/ / 12/17/2017 08:10:40 Jassi Barksdale MD / jami Interpreting Provider: Jassi Barksdale MD Echocardiogram 12/17/17 07:36 Impressions: Technically challenging due to body habitus. LVEF 60-65%. Not all LV wall segments were well visualized even with use of Definity. Mild left ventricular diastolic dysfunction. Normal right ventricular structure and function. Mild tricuspid regurgitation. Chest CT 12/18/17 17:00 IMPRESSION: Postsurgical changes of the bilateral lungs with progressive volume loss and architectural distortion involving the right lung. Areas of ground-glass opacity and interlobular septal thickening at the right lung base are favored to reflect mild asymmetric edema and/or lymphatic congestion, in part owing to postsurgical changes. No substantial change in size of ascending thoracic aortic aneurysm measuring 5.2 cm. Recommend nonemergent vascular surgery consultation if the patient is not already being followed. Also recommend follow-up imaging in 6 months assuming clinical stability. No substantial change in 13 mm right lower lobe pulmonary nodule. No new or enlarging nodule. D/ / 12/18/2017 19:05:43 Gary Marcano / [email or web address] Interpreting Provider: Gary Marcano Exam - Constitutional Vitals: Temp Pulse Resp BP Pulse Ox 98.6 F 87 20 182/94 98 12/19/17 10:28 12/19/17 10:28 12/19/17 10:28 12/19/17 10:28 12/19/17 10:28 General appearance: cooperative, no acute distress, obese - Head Head exam: Present: atraumatic, normal inspection, normocephalic - Eye Eye exam: Present: normal appearance Additional comments: Unable to perform eye assessment as patient does not follow commands or keep eyes open when attempting to assess pupillary response. - ENT ENT exam: Present: mucous membranes dry - Neck Neck exam: Present: meningismus (Pain with flexion of the neck.), normal inspection - Respiratory Respiratory exam: Present: CTAB. Absent: rales, respiratory distress, rhonchi, wheezes - Cardiovascular Cardiovascular exam: Present: RRR, +S1, +S2 - GI/Abdominal GI/Abdominal exam: Present: distended (obese), normal bowel sounds, soft. Absent: tenderness Additional comments: Colostomy noted to the left abdomen with stoma prolapsed, but beefy red and moist. Liquid stool noted in the collection device. Abdi catheter noted to be draining clear yellow urine. - Extremities Exam Extremities exam: Absent: normal inspection (Ulceration noted to the posterior left calf with no surrounding erythema, warmth, or tenderness noted. Wound bed is pink and moist. No purulent drainage noted.), pedal edema, tenderness - Neurological Exam Neurological exam: Present: altered (Does not answer questions appropriately, but does follow some commands.), no focal deficits (GODWIN x 4 on command.) - Psychiatric Psychiatric exam: Present: normal affect, normal mood - Skin Skin exam: Present: dry, intact, normal color, warm Consult Discharge Plan - Plan Referrals: Maxine Delatorre [facility]ENER [Primary Care Provider] - - Attending Attestation I examined this patient and my medical decision-making was reviewed with the Resident Physician. I agree with the documented findings, disposition and treatment plan as described except to the extent set forth below.
[2017-12-19] MEDS ORDERED: Morphine 50 MG in D5% in Water 45 ML IVC SCH (11:30)
[2017-12-19] MEDS ORDERED: Acetaminophen IV 1,000 MG/100 ML INFUS..BTL IVPB PRN (11:53)
[2017-12-19 13:55] LABS: Red Blood Cell,CSF < 0.002 M/mcL
[2017-12-19 13:56] LABS: Appearance,CSF Clear (Clear)
[2017-12-19 13:57] LABS: Glucose,CSF 66 mg/dL (40-70); Total Protein,CSF 104 mg/dL (15-45)
[2017-12-19] MEDS: 0.9 % Sodium Chloride 1,000 ML IVC SCH (14:31)
[2017-12-19] MEDS: *HR* Morphine 30 MG/ 30 ML PCA IVC SCH (14:37)
--- NOTE | 2017-12-19 18:15 | Oncology Inp Progress Note ---
<Darling Enrique L - Last Filed: 12/19/17 18:13> Date of Encounter: 12/19/17 Time of Encounter: 17:15 (1) Adenocarcinoma of lung Current Visit: No Status: Chronic Assessment and plan: Recurrent non-small cell lung cancer (adenocarcinoma), currently on second line of treatment with Nivolumab 480 mg IV Q4 weeks since 07/26/2017 (previously on Nivolumab 240 mg IV Q2 weeks initiated 01/08/2017). Last nivolumab treatment was 12/12/2017. ID and Neurology have been consulted, appreciate recommendations. 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 From an oncology standpoint continue solumedrol until we have confirmation of source Appreciate further recommendations per ID Qualifiers: Sepsis type: sepsis due to unspecified organism Qualified Code(s): A41.9 - Sepsis, unspecified organism (3) Pneumonia Current Visit: No Status: Suspected Assessment and plan: Chest x-ray noted difficulty to exclude superimposed acute infectious airspace disease. CT chest pending Currently on Vancomycin, cefepime and zosyn Qualifiers: Pneumonia type: due to unspecified organism Laterality: right Lung location: lower lobe of lung Qualified Code(s): J18.1 - Lobar pneumonia, unspecified organism Oncology: Subj Interval history: Mr. Ricardo spiked a temp of 103.6 at about 2 am. He has family present with him at bedside currently. His confusion is about the same as yesterday, he arouses to verbal stimuli but is drowsy and inattentive. He has occasional jerking movements of his extremities. He appears uncomfortable if he stretches his LLE. - Constitutional Vitals: Vital Signs Temp Pulse Resp BP Pulse Ox 12/19/17 16:20 99.4 F 78 18 151/84 96 12/19/17 14:19 101.3 F H 12/19/17 13:44 100.4 F H 87 22 154/89 97 12/19/17 11:26 100.8 F H 12/19/17 10:28 98.6 F 87 20 182/94 98 12/19/17 07:09 98.9 F 85 18 163/91 99 12/19/17 03:41 98.5 F 80 19 122/66 96 12/19/17 02:00 103.6 F H 12/18/17 22:54 97.7 F 88 19 119/79 98 12/18/17 21:47 98.1 F 12/18/17 20:52 101.1 F H 12/18/17 19:07 103.2 F H 88 20 150/82 99 Intake and Output 12/19/17 12/19/17 12/19/17 07:59 15:59 23:59 Intake Total 740 / 740 120 / 120 Output Total 1225 / 1225 800 / 800 Balance -485 / -485 -680 / -680 Intake: IV Fluids 740 / 740 120 / 120 Maxipime 2,000 MG In Water for 20 inj. (sterile) 20 ML @ 300 mls/ hr IVP Q8HR [facility] Rx#:[id number] Ofirmev 1,000 mg/100 ml 1,000 100 / 100 mg In 100 ml @ 400 mls/hr IVPB Q6HR [facility]N Rx#:[id number] Zovirax 1,000 MG In Dextrose 5% 270 / 270 250 ML @ 250 mls/hr IVPB Q8H [facility] Rx#:[id number] Flagyl Premix 500 MG/100 ML 500 100 / 100 100 / 100 mg In 100 ml @ 100 mls/hr IVPB Q8HR [facility] Rx#:[id number] Vancocin 1,500 MG In 0.9 % 250 / 250 Sodium Chloride 250 ML @ 166. 667 mls/hr IVPB Q12H [facility] Rx#: [id number] Output: Urine 875 / 875 Stool 200 / 200 500 / 500 Catheter 150 / 150 300 / 300 Other: Stool Consistency liquid liquid Stool Color Brown Brown Black Black General appearance: febrile, no acute distress - Head Head exam: Present: atraumatic - ENT ENT exam: Present: mucous membranes moist Additional comments: ulcerations to bilateral buccal mucose - Respiratory Respiratory exam: Present: CTAB. Absent: respiratory distress - Cardiovascular Cardiovascular exam: Present: RRR, +S1, +S2 - GI/Abdominal GI/Abdominal exam: Present: normal bowel sounds, soft. Absent: tenderness Additional comments: obese, LLQ colostomy - Extremities Exam Extremities exam: Present: pedal edema - Neurological Exam Neurological exam: Present: altered Additional comments: unable to follow some commands, drowsy but arouses to voice, spontaneously moves all extremities - Psychiatric Psychiatric exam: Present: normal affect, normal mood - Skin Additional comments: multiple,scattered skin ulcerations as previously noted Oncology: Obj Data - Labs CBC & Chem 7: 12/19/17 04:10 12/19/17 04:10 - Impressions Impressions Abdomen/Pelvis CT 12/17/17 01:16 IMPRESSION: Stable postsurgical changes of the right lung base with volume loss and scarring. Stable noncalcified pulmonary nodules in both lung bases seen on recent prior chest CT. Stable 9 mm right adrenal nodule unchanged since at least 2016. Stable postsurgical changes from prior colectomy and colostomy with large peristomal hernia. No acute hernia complication. Large ventral abdominal wall hernias containing loops of bowel without acute hernia complication. No significant change since prior. No acute abnormality in the abdomen or pelvis to explain patient's symptoms of acute abdominal pain. D/ / 12/17/2017 08:10:40 Jassi Barksdale MD / jami Interpreting Provider: Jassi Barksdale MD Chest CT 12/18/17 17:00 IMPRESSION: Postsurgical changes of the bilateral lungs with progressive volume loss and architectural distortion involving the right lung. Areas of ground-glass opacity and interlobular septal thickening at the right lung base are favored to reflect mild asymmetric edema and/or lymphatic congestion, in part owing to postsurgical changes. No substantial change in size of ascending thoracic aortic aneurysm measuring 5.2 cm. Recommend nonemergent vascular surgery consultation if the patient is not already being followed. Also recommend follow-up imaging in 6 months assuming clinical stability. No substantial change in 13 mm right lower lobe pulmonary nodule. No new or enlarging nodule. D/ / 12/18/2017 19:05:43 Gary Marcano / josué Interpreting Provider: Gary Marcano Lumbar Puncture Fluoroscopy 12/19/17 10:12 IMPRESSION: Successful fluoroscopic-guided lumbar puncture. D/ / Ricky Nogueira MD / Ricky Nogueira MD Interpreting Provider: Ricky Nogueira MD - ABG Interpretation ABG results: PT/INR, D-dimer PT 13.3 Seconds (9.4-12.1) H 12/17/17 01:54 Consult Discharge Plan - Plan Referrals: Maxine Delatorre, CLINICAL FIELD SPECIALIST [Primary Care Provider] - <Ronak Maria - Last Filed: 12/19/17 21:16> - Constitutional Vitals: Vital Signs Temp Pulse Resp BP Pulse Ox 12/19/17 19:04 98.7 F 66 17 165/83 94 12/19/17 16:20 99.4 F 78 18 151/84 96 12/19/17 14:19 101.3 F H 12/19/17 13:44 100.4 F H 87 22 154/89 97 12/19/17 11:26 100.8 F H 12/19/17 10:28 98.6 F 87 20 182/94 98 12/19/17 07:09 98.9 F 85 18 163/91 99 12/19/17 03:41 98.5 F 80 19 122/66 96 12/19/17 02:00 103.6 F H 12/18/17 22:54 97.7 F 88 19 119/79 98 12/18/17 21:47 98.1 F Intake and Output 12/19/17 12/19/17 12/20/17 08:59 16:59 00:59 Intake Total 620 / 620 390 / 390 Output Total 1325 / 1325 700 / 700 Balance -705 / -705 -310 / -310 Intake: IV Fluids 620 / 620 390 / 390 Maxipime 2,000 MG In Water for 20 / 20 inj. (sterile) 20 ML @ 300 mls/ hr IVP Q8HR [facility] Rx#:[id number] Ofirmev 1,000 mg/100 ml 1,000 100 / 100 mg In 100 ml @ 400 mls/hr IVPB Q6HR PRN Rx#:[id number] Zovirax 1,000 MG In Dextrose 5% 270 / 270 270 / 270 250 ML @ 250 mls/hr IVPB Q8H [facility] Rx#:[id number] Flagyl Premix 500 MG/100 ML 500 100 / 100 mg In 100 ml @ 100 mls/hr IVPB Q8HR [facility] Rx#:[id number] Vancocin 1,500 MG In 0.9 % 250 / 250 Sodium Chloride 250 ML @ 166. 667 mls/hr IVPB Q12H [facility] Rx#: [id number] Output: Urine 875 / 875 Stool 300 / 300 400 / 400 Catheter 150 / 150 300 / 300 Other: Stool Consistency liquid liquid Stool Color Brown Brown Black Black Oncology: Obj Data - Labs CBC & Chem 7: 12/19/17 04:10 12/19/17 04:10 Labs: Laboratory Results - last 24 hr 12/19/17 12/19/17 12/19/17 04:10 04:10 13:01 WBC 7.4 RBC 4.24 Hgb 12.9 Hct 39.7 MCV 93.6 MCH 30.4 MCHC 32.5 RDW 14.9 H Plt Count 101 L MPV 10.7 Immature Gran % 0.3 Seg Neutrophils % 82.5 Lymphocytes % 8.5 Monocytes % 8.4 Eosinophils % 0.0 Basophils % 0.3 Neutrophils # 6.1 Lymphocytes # 0.6 Monocytes # 0.6 Eosinophils # 0.0 Basophils # 0.0 Sodium 144 Potassium 3.6 Chloride 108 H Carbon Dioxide 30 H BUN 19 Creatinine 1.31 H Est GFR ( Amer) > 60 Est GFR (Non-Af Amer) 55 L BUN/Creatinine Ratio 15 Glucose 122 H Calculated Osmolality 302 H Calcium 8.8 Phosphorus 1.9 L Magnesium 1.6 CSF Volume 11.0 CSF Appearance Clear CSF Color Colorless CSF RBC < 0.002 CSF Tot Nucleated Cells 167 H* CSF Seg Neutrophils 5.0 CSF Band Neutrophils % 4.0 CSF Lymphocytes % 79.0 CSF Monocytes % 12.0 CSF Eosinophils % Test Not Performed CSF Basophils % Test Not Performed CSF Other Cells % Test Not Performed CSF Glucose 66 CSF Xanth Comm Not Observed CSF Total Protein 104 H Vancomycin Trough 12/19/17 13:55 WBC RBC Hgb Hct MCV MCH MCHC RDW Plt Count MPV Immature Gran % Seg Neutrophils % Lymphocytes % Monocytes % Eosinophils % Basophils % Neutrophils # Lymphocytes # Monocytes # Eosinophils # Basophils # Sodium Potassium Chloride Carbon Dioxide BUN Creatinine Est GFR ( Amer) Est GFR (Non-Af Amer) BUN/Creatinine Ratio Glucose Calculated Osmolality Calcium Phosphorus Magnesium CSF Volume CSF Appearance CSF Color CSF RBC CSF Tot Nucleated Cells CSF Seg Neutrophils CSF Band Neutrophils % CSF Lymphocytes % CSF Monocytes % CSF Eosinophils % CSF Basophils % CSF Other Cells % CSF Glucose CSF Xanth Comm CSF Total Protein Vancomycin Trough 14 H - Impressions Impressions Abdomen/Pelvis CT 12/17/17 01:16 IMPRESSION: Stable postsurgical changes of the right lung base with volume loss and scarring. Stable noncalcified pulmonary nodules in both lung bases seen on recent prior chest CT. Stable 9 mm right adrenal nodule unchanged since at least 2016. Stable postsurgical changes from prior colectomy and colostomy with large peristomal hernia. No acute hernia complication. Large ventral abdominal wall hernias containing loops of bowel without acute hernia complication. No significant change since prior. No acute abnormality in the abdomen or pelvis to explain patient's symptoms of acute abdominal pain. D/ / 12/17/2017 08:10:40 Jassi Barksdale MD / janett kumar Interpreting Provider: Jassi Barksdale MD Lumbar Puncture Fluoroscopy 12/19/17 10:12 IMPRESSION: Successful fluoroscopic-guided lumbar puncture. D/ / Ricky Nogueira MD / Ricky Nogueira MD Interpreting Provider: Ricky Nogueira MD - ABG Interpretation ABG results: PT/INR, D-dimer PT 13.3 Seconds (9.4-12.1) H 12/17/17 01:54 Inpatient Charges Provider: Dr. Lenny Maria Follow up - Inpatient: [id number] - Attending Attestation I examined this patient and my medical decision-making was reviewed with the Advanced Practice Nurse. I agree with the documented findings, disposition and treatment plan as described except to the extent set forth below. He remains confused and disoriented. Sedated during our visit. EEG completed. Febrile overnight. LP with increase in nucleated cells with lymphocyte predominance most c/w aseptic meningitis. No evidence of bacterial infection. Underlying immune-mediated meningoencephalitis remains a possibility as well. Agree with antiviral; could start to deescalate antibacterials if desired. Continue solu medrol for now for possibility of immune-mediated effect.
[2017-12-20] MEDS: *HR* Heparin 5,000 UNIT/ML VIAL SQ SCH ×4 (00:30→23:55)
[2017-12-20] MEDS: Cefepime HCl 2,000 MG in Water for inj. (sterile) 20 ML 20 ML IVP SCH ×3 (01:00→16:20)
[2017-12-20] MEDS: MetroNIDAZOLE 500 MG/100 ML 500 MG/100 ML BAG IVPB SCH ×3 (01:05→16:16)
[2017-12-20] MEDS: Acyclovir 1,000 MG in D5% in Water 250 ML IVPB SCH ×3 (04:00→20:29)
[2017-12-20] MEDS: *HR* Morphine 30 MG/ 30 ML PCA IVC SCH (06:31)
[2017-12-20] MEDS: MethylPREDNISolone 40 MG/ML VIAL IVP SCH ×2 (07:03→19:03)
[2017-12-20] MEDS ORDERED: Aminoglycoside Consult 1 EACH MC ONE (07:08)
[2017-12-20 08:33] LABS: Basophils % 0.2 %; Hematocrit 40.2 % (37.5-50.1); Hemoglobin 12.7 g/dL (12.9-16.9); Immature Granulocytes % 0.3 % (0-4); Immature Platelets 5.5 % (1.1-6.1); Lymphocytes # 0.6 K/mcL (0.6-4.6); Lymphocytes % 9.6 %; Mean Corpuscular HGB Conc 31.6 g/dL (31.6-35.5); Mean Corpuscular Hemoglobin 29.9 pg (28.0-33.3); Mean Corpuscular Volume 94.6 fL (83.0-100.0); Mean Platelet Volume 9.7 fL (9.4-12.4); Monocytes # 0.5 K/mcL (0.0-1.3); Monocytes % 7.6 %; Red Blood Count 4.25 M/mcL (4.19-5.50); Red Cell Distribution Width 14.8 % (11.5-14.5); Segmented Neutrophils % 82.3 %
[2017-12-20 08:39] LABS: Platelet Count 80 K/mcL (140-400)
[2017-12-20 08:52] LABS: BUN/Creatinine Ratio 19 (6-26); Blood Urea Nitrogen 20 mg/dL (8-23); Calcium 8.6 mg/dL (8.6-10.3); Carbon Dioxide 31 mEq/L (23-29); Chloride 110 mEq/L (98-107); Glucose 102 mg/dL (70-105); Osmolality,Calculated 303 (280-300); Potassium 3.7 mEq/L (3.5-5.1); Sodium 145 mEq/L (136-145); eGFR For Non-African Americans > 60 (> 60)
[2017-12-20] MEDS ORDERED: Albuterol 2.5 MG/3 ML NEBULIZER IH PRN (08:58)
[2017-12-20] MEDS: Aspirin Enteric Coated 81 MG Tablet PO SCH (09:50)
--- NOTE | 2017-12-20 10:43 | Internal Med Progress Note ---
<Jazz Flores - Last Filed: 12/20/17 12:44> Hospitalist Progress Note - Encounter Date of Encounter: 12/20/17 Time of Encounter: 07:55 - Subjective Interval History: 67M PMH Metastatic primary lung Ca presented with LH/Dizziness admitted with 3 sepsis criteria. Normothermic now. Head CT/MRI negative. LP showed cells 167, protein 101 suggesting immune-mediated encephalopathy. Started on 50mg Solumedrol BID yesterday. BC x 2 from peripheral and port pending from 12/17. Resp panel neg. Imaging suggested RLL PNA. On Vanc/Cefepime/Acyclovir/Flagyl. Followed by ID. N/V Abd Pain at admit, CT Abd/Pelvis neg for acute abn. 24 hr cortisol pending. Left leg ulcer with simple bandaid present, wound consult placed. Overnight pt had no acute events. Patient is now awake, alert, A&Ox3, oriented to time, place, and self. Expresses that he feels much better than he has previously. Does not remember much about previous few days, but is only now complaining of some wheezing that he states is his baseline, as well as some numbness in his hands and feet that is also baseline, finally, endorsing a dry cough that he has had for "quite a while now." Asking for water. - Exam Vitals: Temp Pulse Resp BP Pulse Ox 98.4 F 64 19 143/88 97 12/20/17 03:35 12/20/17 03:35 12/20/17 03:35 12/20/17 03:35 12/20/17 03:35 Exam: Gen: Awake, A&O x 3. Pleasant, easily engaged in conversation. ENT: mucous membranes moist Cardio: RRR no m/r/g Pulm: Diffuse wheezes in all lung rowell Abd: Normoactive bowel sounds, does not complain of pain on palpation Extremities: Leg ulcer behind left knee, scabbed abrasions healing on left posterior tibialis area, and on dorsal aspect of left foot. Right extremity unremarkable. Pt withdraws from palpation of either LE. Skin: Warm, dry, intact with exception of noted above in extremities Neuro: CN II-XII grossly intact, gemma UE/LE Str 5/5 - Assessment and Plan (1) Encephalopathy Current Visit: Yes Status: Acute Assessment and Plan: -possibly viral/immune mediated -no nuchal rigidity -CT and MRI head both non-acute - LP showed cells 167, protein 101 -LP cultures pending -On Acyclovir/Vanc/Zosyn/Flagyl - Solu-medrol 50mg BID - Mental status now much improved, continue to monitor, await culture results (2) CHF (congestive heart failure) Current Visit: No Status: Chronic Assessment and Plan: -h/o CHF, unknown which type -echo 12/17/17: EF 60-65%, mild LV diastolic dysfunction -monitor (3) Adenocarcinoma of lung Current Visit: No Status: Chronic Assessment and Plan: - On Opdivo therapy, last injection 12/12/17 - follows outpt with oncology - oncology onboard during this admission (4) Sepsis Current Visit: Yes Status: Acute Assessment and Plan: - Blood cultures from peripheral and port pending from 12/17/17 - UA unremarkable - last lactic acid 0.8, repeat pending - cryptococcal antigen negative - flu swab negative - tylenol 1000mg PRN Q6 - Vanc dosing by pharmacy, trough 15 - cefepime 2g Q8 - Acyclovir 1g Q8 - Flagyl 500mg Q8 - ID on board (5) Ulcer of left lower extremity with fat layer exposed Current Visit: No Status: Acute Assessment and Plan: - wound dressed with simple bandage - unspecified chronicity - wound care consult (6) Elevated troponin Current Visit: Yes Status: Acute Assessment and Plan: -Could be demand ischemia due to sepsis/kidney failure - EKG failed to demonstrate ischemic changes - pt cannot verbalize chest pain, but altered (7) Fever Current Visit: Yes Status: Acute Assessment and Plan: - Tmax from yesterday 103.6 at 1419 - tylenol 1000mg Q6 changed from PRN to [facility] - peripheral/port blood cultures pending - see sepsis management for further details (8) Qlouq-go-eszxbwd kidney injury Current Visit: Yes Status: Acute Assessment and Plan: -cr at admission was 1.53, now 1.31 - Cr from last several years ~ 1.2-1.4 - Could be at baseline - Continue to renally dose meds, gentle hydration, monitor (9) Lightheaded Current Visit: Yes Status: Resolved Assessment and Plan: -likely due to dehydration -continue neuro checks -MRI non-acute, will not consult neuro at this time -A1c 5.4 -TSH 0.403 -lipid panel unremarkable -Flu A/B negative -monitor BP status -follow up orthostatics -monitor (10) DVT prophylaxis Current Visit: No Status: Acute Assessment and Plan: 5000u SQ TID DVT Prophylaxis: heparin 5000u Q8 - Time Spent with Patient Total time spent is greater than 50% in coordination of care (as documented) at patient's floor/unit and/or counseling patient: less than 15 minutes Plan of Care Discussed with: family Internal Medicine: Result - Labs CBC & Chem 7: 12/20/17 07:55 12/20/17 07:54 - ABG Interpretation ABG results: PT/INR, D-dimer PT 13.3 Seconds (9.4-12.1) H 12/17/17 01:54 - Impressions Impressions Lumbar Puncture Fluoroscopy 12/19/17 10:12 IMPRESSION: Successful fluoroscopic-guided lumbar puncture. D/ / Ricky Nogueira MD / Ricky Nogueira MD Interpreting Provider: Ricky Nogueira MD Consult Discharge Plan - Plan Referrals: Maxine Delatorre, DATA ENTRY REPRESENTATIVE [Primary Care Provider] - <John Taveras - Last Filed: 12/20/17 14:11> Hospitalist Progress Note - Exam Vitals: Temp Pulse Resp BP Pulse Ox 98.8 F 77 16 148/91 97 12/20/17 11:28 12/20/17 11:28 12/20/17 11:28 12/20/17 11:28 12/20/17 11:28 - Assessment and Plan (1) Acute metabolic encephalopathy Current Visit: Yes Status: Acute (2) Encephalitis Current Visit: Yes Status: Suspected (3) Metastatic primary lung cancer Current Visit: Yes Status: Acute (4) Hypertension Current Visit: No Status: Chronic (5) COPD (chronic obstructive pulmonary disease) Current Visit: No Status: Chronic (6) Sepsis Current Visit: Yes Status: Resolved (7) Morbid obesity with BMI of 40.0-44.9, adult Current Visit: No Status: Chronic (8) AQUILES (obstructive sleep apnea) Current Visit: No Status: Chronic (9) Chronic respiratory failure Current Visit: No Status: Chronic - Time Spent with Patient Total time spent is greater than 50% in coordination of care (as documented) at patient's floor/unit and/or counseling patient: Internal Medicine: Result - Labs CBC & Chem 7: 12/20/17 07:55 12/20/17 07:54 Labs: Short CBC 12/20/17 Range/Units 07:55 WBC 6.1 (4.3-11.1) K/mcL Hgb 12.7 L (12.9-16.9) g/dL Hct 40.2 (37.5-50.1) % Plt Count 80 L (140-400) K/mcL Neutrophils # 5.0 (1.6-8.9) K/mcL BMP 12/20/17 07:54 Sodium 145 Potassium 3.7 Chloride 110 H Carbon Dioxide 31 H BUN 20 Creatinine 1.06 Glucose 102 Calcium 8.6 - ABG Interpretation ABG results: PT/INR, D-dimer PT 13.3 Seconds (9.4-12.1) H 12/17/17 01:54 - Impressions Impressions Chest CT 12/18/17 17:00 IMPRESSION: Postsurgical changes of the bilateral lungs with progressive volume loss and architectural distortion involving the right lung. Areas of ground-glass opacity and interlobular septal thickening at the right lung base are favored to reflect mild asymmetric edema and/or lymphatic congestion, in part owing to postsurgical changes. No substantial change in right lower lobe pulmonary nodules dating back through at least 06/01/2015. No specific follow-up for these nodules is recommended. No new or enlarging nodule. No substantial change in size of ascending thoracic aortic aneurysm measuring 5.2 cm. Recommend nonemergent vascular surgery consultation if the patient is not already being followed. Also recommend follow-up imaging in 6 months assuming clinical stability. D/ / 12/18/2017 19:05:43 Gary Marcano / josué Interpreting Provider: Gary Marcano Chest X-Ray 12/20/17 11:21 IMPRESSION: 1. Stable right chest wall [employer]. 2. Stable cardiopulmonary status since prior CT. D/ / 12/20/2017 12:22:37 Gina Capone MD / Nkechi Brownlee Interpreting Provider: Gina Capone MD - Attending Attestation I examined this patient and my medical decision-making was reviewed with the Resident Physician on 12/20/17. I agree with the documented findings, disposition and treatment plan as described except to the extent set forth below. Mr Ricardo is currently admitted for acute encephalopathy with concern for acute encephalitis - virus versus immune mediated. He remains moderate to high risk due to potential for worsening clinical status. Mr Ricardo is alert and oriented today. He is no longer confused. No CP or SOB. No fever since yesterday afternoon. No diarrhea. Exam alert Comfortable Mucus membranes dry Heart not tachy at this time Some wheezing Abd soft No edema I/P 1. Acute encephalopathy - presumed due to encephalitis 2. Lung cancer Further diagnoses and plan as above. <John Taveras - Last Filed: 12/20/17 14:11> (3) Metastatic primary lung cancer Qualifiers: Laterality: right Qualified Code(s): C34.91 - Malignant neoplasm of unspecified part of right bronchus or lung (4) Hypertension Qualifiers: Hypertension type: essential hypertension Qualified Code(s): I10 - Essential (primary) hypertension (5) COPD (chronic obstructive pulmonary disease) Qualifiers: COPD type: chronic bronchitis Chronic bronchitis type: simple Qualified Code(s): J41.0 - Simple chronic bronchitis (6) Sepsis Qualifiers: Sepsis type: sepsis due to unspecified organism Qualified Code(s): A41.9 - Sepsis, unspecified organism (9) Chronic respiratory failure Qualifiers: Respiratory failure complication: hypoxia Qualified Code(s): J96.11 - Chronic respiratory failure with hypoxia
--- NOTE | 2017-12-20 10:48 | Neurology Progress Note ---
Assessment and Plan (1) Non-small cell lung cancer Current Visit: Yes Status: Resolved Qualifiers: Laterality: right Qualified Code(s): C34.91 - Malignant neoplasm of unspecified part of right bronchus or lung (2) Morbid obesity with BMI of 40.0-44.9, adult Current Visit: No Status: Chronic (3) Hypertension Current Visit: No Status: Chronic Qualifiers: Hypertension type: essential hypertension Qualified Code(s): I10 - Essential (primary) hypertension (4) Chronic respiratory failure Current Visit: No Status: Chronic Qualifiers: Respiratory failure complication: hypoxia Qualified Code(s): J96.11 - Chronic respiratory failure with hypoxia (5) AQUILES (obstructive sleep apnea) Current Visit: No Status: Chronic (6) Sepsis Current Visit: Yes Status: Acute Qualifiers: Sepsis type: sepsis due to unspecified organism Qualified Code(s): A41.9 - Sepsis, unspecified organism (7) Acute metabolic encephalopathy Current Visit: Yes Status: Acute (8) Encephalitis Current Visit: Yes Status: Suspected Subjective Principal diagnosis: Meningitis/encephalitis Interval history: No acute overnight events. Patient seems to have broken his fever this morning but did have a MAXIMUM TEMPERATURE of 103.6 at 2 AM. He is alert and oriented 3 however it is difficult at times for him to stay attentive. He continues to have jerking motions in his extremities are not tender time. He reports this confusion is same compared to yesterday. Objective - Constitutional Vitals: Temp Pulse Resp BP Pulse Ox 98.9 F 76 14 125/71 98 12/20/17 08:02 12/20/17 08:02 12/20/17 08:02 12/20/17 08:02 12/20/17 08:02 - Neurological Exam Sensorimotor examination: Present: intact Motor Examination: Present: grossly full strength in all extremities, full strength in all major muscle groups Motor examination - left side: 5/5: deltoids, biceps, triceps, wrist flexion, wrist extension, hip flexors, newsagent, quadriceps, tibialis Anterior, toe extension (EHL), plantarflexion Sensation intact: Present: intact Reflex and gait examination: other (Gait not tested) Mental Status Examination: Present: awake, alert, oriented to person, oriented to place, follows commands appropriately, opens eyes to voice, not reliable historian Cranial nerve examination: Present: PERRL, EOMI, sensory to face intact, no facial asymmetry is present, no dysarthria, hearing is intact symmetrically, soft palate elevates bilaterally upon phonation, flexes SCM and trapezius muscles symmetrically with full power, tongue protrudes midline, no atrophy or facial fasiculations present Cerebellar examination: Present: no dysmetria Results - Laboratory Findings CBC and BMP: 12/20/17 07:55 12/20/17 07:54 Abnormal lab findings: Abnormal lab results Hgb 12.7 g/dL (12.9-16.9) L 12/20/17 07:55 RDW 14.8 % (11.5-14.5) H 12/20/17 07:55 Plt Count 80 K/mcL (140-400) L 12/20/17 07:55 PT 13.3 Seconds (9.4-12.1) H 12/17/17 01:54 Chloride 110 mEq/L (98-107) H 12/20/17 07:54 Carbon Dioxide 31 mEq/L (23-29) H 12/20/17 07:54 POC Glucose 120 mg/dL (70-99) H 12/17/17 21:00 Calculated Osmolality 303 (280-300) H 12/20/17 07:54 Phosphorus 1.9 mg/dL (2.7-4.5) L 12/19/17 04:10 Troponin I 0.06 ng/mL (< 0.04) H* 12/17/17 12:41 HDL Cholesterol 27 mg/dL (40-59) L 12/18/17 04:25 Cholesterol/HDL Ratio 5.6 (0-4.9) H 12/18/17 04:25 Total Testosterone 107 ng/dL (280-1100) L 12/18/17 04:25 Ur Specific [place] 1.030 (1.010-1.025) H 12/17/17 05:38 CSF Tot Nucleated Cells 167 TNC/mcL (0-5) H* 12/19/17 13:01 CSF Total Protein 104 mg/dL (15-45) H 12/19/17 13:01 Vancomycin Trough 14 mcg/mL (5-10) H 12/19/17 13:55 Consult Discharge Plan - Plan Referrals: Maxine Delatorre, [employer]PPER [Primary Care Provider] -
--- NOTE | 2017-12-20 10:52 | Infectious Disease Progress No ---
Date of Encounter: 12/20/17 Time of Encounter: 09:54 - Assessment and Plan (1) Sepsis Current Visit: Yes Status: Resolved Severe sepsis: 3 sepsis criteria noted on admission with acute kidney injury and elevated troponin. 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 White blood cell count has normalized. Tmax 101.8 overnight, but fever curve is improving. Tachycardia and tachypnea have resolved. Mental status appears to be back to baseline. Blood cultures drawn 2 sets from peripheral stick and are NGTD 2 sets. Repeat blood cultures drawn on 12/17/17 from the patient's A-port are NGTD 2 sets. Flu antigen swab was negative. RIP was negative. Chest x-ray showed right lung pleural parenchymal abnormality favored to be chronic in post treatment, but superimposed pneumonia cannot be excluded. CT abdomen and pelvis was negative for acute abnormality. CT and MRI of the head were also negative. CT chest negative for infectious etiology. Discontinue Vancomycin. Continue cefepime 2 g IV every 8 hours for now. Continue Flagyl 500 mg IV 3 times a day for now. Will continue to de-escalate as the patient's clinical picture warrants. Duration of treatment depends on the clinical picture. Monitor renal function dose adjust antibiotics. Qualifiers: Sepsis type: sepsis due to unspecified organism Qualified Code(s): A41.9 - Sepsis, unspecified organism (2) Meningoencephalitis Current Visit: Yes Status: Acute Causative organism: Unclear, but likely viral vs autoimmune. CT and MRI of the head are both negative for acute abnormality. Neurology consulted. Appreciate assistance. Attempted LP at bedside, but un successful. Status post LP 12/19/17 by interventional radiology. Pleocytosis with lymphocytic predominance noted. CSF gram stain negative, culture is no growth. HSV and VZV PCR are pending. Check cryptococcal antigen.--> negative. Continue acyclovir 10 mg/kg IV every 8 hours. Dosing discussed with Jung, Pharm.D. States will use adjusted body weight to maintain adequate drug levels. Monitor renal function and dose adjust medications. (3) Acute encephalopathy Current Visit: Yes Status: Acute Secondary to meningoencephalitis. Resolved. Continue to monitor closely. (4) Pneumonia Current Visit: No Status: Ruled-out Chest x-ray showed right lung pleural parenchymal abnormality failure to be chronic and posttreatment related when compared to prior imaging, but difficult to exclude superimposed acute infectious airspace disease. CT chest negative for PNA. Check respiratory infectious panel.--> negative. Qualifiers: Pneumonia type: due to unspecified organism Laterality: right Lung location: lower lobe of lung Qualified Code(s): J18.1 - Lobar pneumonia, unspecified organism (5) Fgozg-ga-lfnhrxo kidney injury Current Visit: Yes Status: Acute Likely secondary to sepsis. Improved. Continue to trend. Monitor renal function and dose adjust antibiotics. Avoid nephrotoxins as able. Qualifiers: Acute renal failure type: unspecified Chronic kidney disease stage: stage 2 (mild) Qualified Code(s): N17.9 - Acute kidney failure, unspecified; N18.2 - Chronic kidney disease, stage 2 (mild) (6) Lightheaded Current Visit: Yes Status: Resolved Likely secondary to sepsis. CT and MRI of the head are both negative for acute abnormality. Neurology evaluation noted and appreciated. Resolved. (7) Elevated troponin Current Visit: Yes Status: Acute Troponins elevated at 0.07, 0.08, 0.06. The patient denies any chest pain. Further workup and management per the primary team. (8) CHF (congestive heart failure) Current Visit: Yes Status: Chronic Qualifiers: Heart failure type: unspecified Heart failure chronicity: chronic Qualified Code(s): I50.9 - Heart failure, unspecified (9) CKD (chronic kidney disease) Current Visit: No Status: Chronic Qualifiers: Chronic kidney disease stage: stage 3 (moderate) Qualified Code(s): N18.3 - Chronic kidney disease, stage 3 (moderate) (10) Metastatic primary lung cancer Current Visit: Yes Status: Acute Diagnosed in 2013 with primary lung adenocarcinoma. Remote history of right upper lobe lobectomy. Positive for pulmonary nodules with evidence of metastatic disease in 2015. Status post wedge resection of the right lung nodules 4. Started on Nivolumab [id number] in December 2016. Transitioned to Q4 week dosing in June 2017. Last dose 12/12/17. Hem/Onc consulted and following. Qualifiers: Laterality: right Qualified Code(s): C34.91 - Malignant neoplasm of unspecified part of right bronchus or lung (11) Morbid obesity with BMI of 40.0-44.9, adult Current Visit: No Status: Chronic (12) Nausea and vomiting Current Visit: Yes Status: Resolved Etiology unclear: possible opiate withdraw. CT of the abdomen and pelvis negative for acute abnormality. Started on morphine gtt by the primary team since the patient was NPO. Appears improved. Management per the primary team. Qualifiers: Vomiting type: unspecified Vomiting Intractability: unspecified Qualified Code(s): R11.2 - Nausea with vomiting, unspecified - Subjective Interval history: Patient seen and examined. No acute events noted overnight. Patient is awake, alert, oriented x 3 and able to communicate today. Denies fevers, chills, or rigors overnight. Denies headache, dizziness, or neck pain. Denies chest pain or shortness of breath, but does have a dry cough. Denies nausea, vomiting, or diarrhea. Reports good output from his colostomy. Abdi catheter remains patent. Denies abdominal pain, urinary complaints. Reports he is hungry and wants to eat. Denies oral thrush or new skin lesions. Denies back, joint, or extremity pain. Infect Dis PN-Objective Data - Labs CBC & Chem 7: 12/21/17 01:07 12/21/17 08:41 Labs: Laboratory Results - last 24 hr 12/19/17 12/19/17 12/20/17 13:01 13:55 07:54 WBC RBC Hgb Hct MCV MCH MCHC RDW Plt Count MPV Immature Gran % Seg Neutrophils % Lymphocytes % Monocytes % Eosinophils % Basophils % Neutrophils # Lymphocytes # Monocytes # Eosinophils # Basophils # Immature Plt Fraction Sodium 145 Potassium 3.7 Chloride 110 H Carbon Dioxide 31 H BUN 20 Creatinine 1.06 Est GFR ( Amer) > 60 Est GFR (Non-Af Amer) > 60 BUN/Creatinine Ratio 19 Glucose 102 Calculated Osmolality 303 H Calcium 8.6 CSF Volume 11.0 CSF Appearance Clear CSF Color Colorless CSF RBC < 0.002 CSF Tot Nucleated Cells 167 H* CSF Seg Neutrophils 5.0 CSF Band Neutrophils % 4.0 CSF Lymphocytes % 79.0 CSF Monocytes % 12.0 CSF Eosinophils % Test Not Performed CSF Basophils % Test Not Performed CSF Other Cells % Test Not Performed CSF Glucose 66 CSF Xanth Comm Not Observed CSF Total Protein 104 H Vancomycin Trough 14 H 12/20/17 07:55 WBC 6.1 RBC 4.25 Hgb 12.7 L Hct 40.2 MCV 94.6 MCH 29.9 MCHC 31.6 RDW 14.8 H Plt Count 80 L MPV 9.7 Immature Gran % 0.3 Seg Neutrophils % 82.3 Lymphocytes % 9.6 Monocytes % 7.6 Eosinophils % 0.0 Basophils % 0.2 Neutrophils # 5.0 Lymphocytes # 0.6 Monocytes # 0.5 Eosinophils # 0.0 Basophils # 0.0 Immature Plt Fraction 5.5 Sodium Potassium Chloride Carbon Dioxide BUN Creatinine Est GFR ( Amer) Est GFR (Non-Af Amer) BUN/Creatinine Ratio Glucose Calculated Osmolality Calcium CSF Volume CSF Appearance CSF Color CSF RBC CSF Tot Nucleated Cells CSF Seg Neutrophils CSF Band Neutrophils % CSF Lymphocytes % CSF Monocytes % CSF Eosinophils % CSF Basophils % CSF Other Cells % CSF Glucose CSF Xanth Comm CSF Total Protein Vancomycin Trough Cultures: Cultures 12/19/17 13:01 CSF Culture - Preliminary Cerebral Spinal Fluid 12/18/17 11:53 Cryptococcal Antigen - Final Serum 12/17/17 22:35 Blood Culture - Preliminary Port System Culture is incubating and being continuously monitored for growth. Final report to follow. 12/17/17 22:35 Blood Culture - Preliminary Port System Culture is incubating and being continuously monitored for growth. Final report to follow. 12/17/17 10:05 Influenza Types A,B Antigen - Final Nasopharyngeal 12/17/17 07:10 Blood Culture - Preliminary Peripheral Venipuncture Culture is incubating and being continuously monitored for growth. Final report to follow. 12/17/17 07:16 Blood Culture - Preliminary Peripheral Venipuncture Culture is incubating and being continuously monitored for growth. Final report to follow. Serology 12/19/17 12/18/17 12/17/17 Range/Units 13:01 11:53 05:38 Urine Color Yellow (Yellow) Urine Clarity Clear (Clear) Urine pH 5.5 (5.0-8.0) pH Units Ur Specific [place] 1.030 H (1.010-1.025) Urine Protein Negative (Neg-Trace) mg/dL Urine Glucose (UA) Normal (Normal) mg/dL Urine Ketones Negative (Negative) mg/dL Urine Blood Negative (Negative) Urine Nitrite Negative (Negative) Urine Bilirubin Negative (Negative) Urine Urobilinogen Normal (Normal) mg/dL Ur Leukocyte Esterase Negative (Negative) Ur Culture Indicated? NO (NO) CSF Volume 11.0 mL CSF Appearance Clear (Clear) CSF Color Colorless (Colorless) CSF RBC < 0.002 (0.000 - 0.002) M/mcL CSF Tot Nucleated Cells 167 H* (0-5) TNC/mcL CSF Seg Neutrophils 5.0 % CSF Band Neutrophils % 4.0 % CSF Lymphocytes % 79.0 % CSF Monocytes % 12.0 % CSF Eosinophils % Test Not Performed CSF Basophils % Test Not Performed CSF Other Cells % Test Not Performed CSF Glucose 66 (40-70) mg/dL CSF Xanth Comm Not Observed (Not Observe) CSF Total Protein 104 H (15-45) mg/dL Chlamy pneumoniae PCR Not Detected (Not Detect) Adenovirus (PCR) Not Detected (Not Detect) B. pertussis DNA (PCR) Not Detected (Not Detect) B.parapertussis DNA PCR Not Detected (Not Detect) Coronavirus OC43 (PCR) Not Detected (Not Detect) Coronavirus HKU1 (PCR) Not Detected (Not Detect) Coronavirus 229E (PCR) Not Detected (Not Detect) Coronavirus NL63 (PCR) Not Detected (Not Detect) Human Metapneumovir PCR Not Detected (Not Detect) Influenza A (H1) PCR Not Detected (Not Detect) Influ A (H1N1/09) PCR Not Detected (Not Detect) Influenza A (H3) PCR Not Detected (Not Detect) Influenza A Untype (PCR) Not Detected (Not Detect) Influenza Type B (PCR) Not Detected (Not Detect) M.pneumoniae DNA (PCR) Not Detected (Not Detect) Parainfluenza 1 (PCR) Not Detected (Not Detect) Parainfluenza 2 (PCR) Not Detected (Not Detect) Parainfluenza 3 (PCR) Not Detected (Not Detect) Parainfluenza 4 (PCR) Not Detected (Not Detect) RSV (PCR) Not Detected (Not Detect) Entero/Rhino (PCR) Not Detected (Not Detect) - Impressions Impressions Lumbar Puncture Fluoroscopy 12/19/17 10:12 IMPRESSION: Successful fluoroscopic-guided lumbar puncture. D/ / Ricky Nogueira MD / Ricky Nogueira MD Interpreting Provider: Ricky Nogueira MD Exam - Constitutional Vitals: Temp Pulse Resp BP Pulse Ox 98.9 F 76 14 125/71 98 12/20/17 08:02 12/20/17 08:02 12/20/17 08:02 12/20/17 08:02 12/20/17 08:02 General appearance: cooperative, no acute distress, obese - Head Head exam: Present: atraumatic, normal inspection, normocephalic - Eye Eye exam: Present: EOMI, normal appearance, PERRL Pupils: Present: normal accommodation - ENT ENT exam: Present: mucous membranes moist - Neck Neck exam: Present: normal inspection - Respiratory Respiratory exam: Present: wheezes (Faint expiratory wheezes throughout anterior lung rowell.). Absent: CTAB, rales, respiratory distress, rhonchi - Cardiovascular Cardiovascular exam: Present: RRR, +S1, +S2 - GI/Abdominal GI/Abdominal exam: Present: distended (obese), normal bowel sounds, soft. Absent: tenderness Additional comments: Colostomy noted to the left abdomen with prolapsed stoma. Small amount of liquid green stool noted in the bag. Abdi catheter noted to be draining clear yellow urine. - Extremities Exam Extremities exam: Absent: joint swelling, normal inspection (Dressing to the left posterior calf C/D/I.), pedal edema, tenderness - Neurological Exam Neurological exam: Present: alert, oriented X3, no focal deficits - Psychiatric Psychiatric exam: Present: normal affect, normal mood - Skin Skin exam: Present: dry, intact, normal color, warm Consult Discharge Plan - Plan Referrals: Maxine Delatorre, INDUSTRI[employer]OM[employer] SPECIALIST [Primary Care Provider] - - Attending Attestation I examined this patient and my medical decision-making was reviewed with the Resident Physician. I agree with the documented findings, disposition and treatment plan as described except to the extent set forth below.
--- NOTE | 2017-12-20 10:55 | Neurology Progress Note ---
<Fco Adame - Last Filed: 12/20/17 10:23> Date of Encounter: 12/20/17 Time of Encounter: 10:23 Assessment and Plan (1) Encephalitis Current Visit: Yes Status: Suspected likely viral however awaiting final CSF results elevated protein, glucose and elevated total nucleated cells at 167 with a lymphocytic predominance Another possibility is immune mediated encephalitis secondary to Nivolumab Patient is currently on broad-spectrum antibiotics vancomycin, cefepime as well as acyclovir. He is also being treated with Solu-Medrol. Patient has resolution of leukocytosis and was afebrile overnight. Appreciate oncology and ID input. (2) Acute metabolic encephalopathy Current Visit: Yes Status: Acute Patient is alert to self, place, situation but not time. He reports his confusion has improved. He was afebrile overnight Plan as above. Subjective Principal diagnosis: Meningitis/encephalitis Interval history: No acute overnight events. This morning patient reports he feels less confused. He is alert to self, place, situation but not to time. Objective - Constitutional Vitals: Temp Pulse Resp BP Pulse Ox 98.9 F 76 14 125/71 98 12/20/17 08:02 12/20/17 08:02 12/20/17 08:02 12/20/17 08:02 12/20/17 08:02 - Neurological Exam Sensorimotor examination: Present: intact Motor Examination: Present: grossly full strength in all extremities, full strength in all major muscle groups Motor examination - right side: 5/5: deltoids, biceps, triceps, wrist flexion, wrist extension, supervisor furnace process, hip flexors, tibialis Anterior, quadriceps, toe extension (EHL), plantarflexion Motor examination - left side: 5/5: deltoids, biceps, triceps, wrist flexion, wrist extension, hip flexors, supervisor furnace process, quadriceps, tibialis Anterior, toe extension (EHL), plantarflexion Sensation intact: Present: intact Reflex and gait examination: other (Gait not tested) Mental Status Examination: Present: awake, alert, oriented to person, oriented to place, follows commands appropriately, opens eyes to voice, not reliable historian Cranial nerve examination: Present: PERRL, EOMI, sensory to face intact, no facial asymmetry is present, no dysarthria, hearing is intact symmetrically, soft palate elevates bilaterally upon phonation, flexes SCM and trapezius muscles symmetrically with full power, tongue protrudes midline, no atrophy or facial fasiculations present Cerebellar examination: Present: no dysmetria Results - Laboratory Findings CBC and BMP: 12/20/17 07:55 12/20/17 07:54 Abnormal lab findings: Abnormal lab results Hgb 12.7 g/dL (12.9-16.9) L 12/20/17 07:55 RDW 14.8 % (11.5-14.5) H 12/20/17 07:55 Plt Count 80 K/mcL (140-400) L 12/20/17 07:55 PT 13.3 Seconds (9.4-12.1) H 12/17/17 01:54 Chloride 110 mEq/L (98-107) H 12/20/17 07:54 Carbon Dioxide 31 mEq/L (23-29) H 12/20/17 07:54 POC Glucose 120 mg/dL (70-99) H 12/17/17 21:00 Calculated Osmolality 303 (280-300) H 12/20/17 07:54 Phosphorus 1.9 mg/dL (2.7-4.5) L 12/19/17 04:10 Troponin I 0.06 ng/mL (< 0.04) H* 12/17/17 12:41 HDL Cholesterol 27 mg/dL (40-59) L 12/18/17 04:25 Cholesterol/HDL Ratio 5.6 (0-4.9) H 12/18/17 04:25 Total Testosterone 107 ng/dL (280-1100) L 12/18/17 04:25 Ur Specific [place] 1.030 (1.010-1.025) H 12/17/17 05:38 CSF Tot Nucleated Cells 167 TNC/mcL (0-5) H* 12/19/17 13:01 CSF Total Protein 104 mg/dL (15-45) H 12/19/17 13:01 Vancomycin Trough 14 mcg/mL (5-10) H 12/19/17 13:55 Consult Discharge Plan - Plan Referrals: Maxine Delatorre, ANODISER [Primary Care Provider] - <Anastasia Arcos I - Last Filed: 12/20/17 16:34> Assessment and Plan (1) Acute encephalopathy Current Visit: Yes Status: Acute (2) Acute metabolic encephalopathy Current Visit: Yes Status: Acute Pt was seen and examined, my medical decision was reviewed with the Resident Physician, I agree with the documented findings, disposition and treatment plan as described except to the extent set forth below. Patient had in the spinal tap results were reviewed. Overall he is stable slowly improving confusion is present but intermittent no focal neurological deficit Suggest to continue antibiotics as well as antiviral agent as per ID recommendation No evidence of any seizure on EEG Anastasia Arcos MD Objective - Constitutional Vitals: Temp Pulse Resp BP Pulse Ox 98.8 F 77 16 148/91 97 12/20/17 11:28 12/20/17 11:28 12/20/17 11:28 12/20/17 11:28 12/20/17 11:28 Results - Laboratory Findings CBC and BMP: 12/20/17 07:55 12/20/17 07:54 Abnormal lab findings: Abnormal lab results Hgb 12.7 g/dL (12.9-16.9) L 12/20/17 07:55 RDW 14.8 % (11.5-14.5) H 12/20/17 07:55 Plt Count 80 K/mcL (140-400) L 12/20/17 07:55 PT 13.3 Seconds (9.4-12.1) H 12/17/17 01:54 Chloride 110 mEq/L (98-107) H 12/20/17 07:54 Carbon Dioxide 31 mEq/L (23-29) H 12/20/17 07:54 POC Glucose 108 mg/dL (70-99) H 12/20/17 11:26 Calculated Osmolality 303 (280-300) H 12/20/17 07:54 Phosphorus 1.9 mg/dL (2.7-4.5) L 12/19/17 04:10 Troponin I 0.06 ng/mL (< 0.04) H* 12/17/17 12:41 HDL Cholesterol 27 mg/dL (40-59) L 12/18/17 04:25 Cholesterol/HDL Ratio 5.6 (0-4.9) H 12/18/17 04:25 Total Testosterone 107 ng/dL (280-1100) L 12/18/17 04:25 Ur Specific [place] 1.030 (1.010-1.025) H 12/17/17 05:38 CSF Tot Nucleated Cells 167 TNC/mcL (0-5) H* 12/19/17 13:01 CSF Total Protein 104 mg/dL (15-45) H 12/19/17 13:01 Vancomycin Trough 14 mcg/mL (5-10) H 12/19/17 13:55
[2017-12-20] MEDS ORDERED: Acetaminophen IV 1,000 MG/100 ML INFUS..BTL IVPB SCH (12:00)
[2017-12-20] MEDS: *HR* Morphine Sulfate SR (12 HR) 30 MG TABLET.ER PO SCH ×2 (12:33→23:54)
[2017-12-20] MEDS: Ipratropium/Albuterol Neb 3 ML IH SCH ×3 (14:32→20:43)
[2017-12-20] MEDS: 0.9 % Sodium Chloride 1,000 ML IVC SCH (16:10)
--- NOTE | 2017-12-20 17:39 | Oncology Inp Progress Note ---
<Darling Enrique Sylvester - Last Filed: 12/20/17 20:42> Date of Encounter: 12/20/17 Time of Encounter: 13:45 (1) Adenocarcinoma of lung Current Visit: No Status: Chronic Assessment and plan: Recurrent non-small cell lung cancer (adenocarcinoma), currently on second line of treatment with Nivolumab 480 mg IV Q4 weeks since 07/26/2017 (previously on Nivolumab 240 mg IV Q2 weeks initiated 01/08/2017). Last nivolumab treatment was 12/12/2017. ID and Neurology have been consulted, appreciate recommendations. 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 From an oncology standpoint continue solumedrol for possible immune mediated effect until we have confirmation of source If no viral source is identified, will then likely need to base etiology as autoimmune secondary to Nivolumab treatment (discussed as above) Appreciate further recommendations per ID/Neuro Qualifiers: Sepsis type: sepsis due to unspecified organism Qualified Code(s): A41.9 - Sepsis, unspecified organism Oncology: Subj Interval history: Mr. Ricardo had no acute events overnight. He is now alert, awake and oriented x3. He is able to communicate, continues to have word finding difficulty. Denies recent fevers, chills, headache, dizziness, visual changes, nausea, vomiting or neck pain. He continues to have jerking movements. He has eaten small amounts of his meals today. His daughter is at bedside. - Constitutional Vitals: Vital Signs Temp Pulse Resp BP Pulse Ox 12/20/17 16:38 99.3 F 70 16 164/93 99 12/20/17 11:28 98.8 F 77 16 148/91 97 12/20/17 08:02 98.9 F 76 14 125/71 98 12/20/17 03:35 98.4 F 64 19 143/88 97 12/19/17 23:07 98.4 F 63 17 137/84 96 12/19/17 19:04 98.7 F 66 17 165/83 94 Intake and Output 12/20/17 12/20/17 12/20/17 07:59 15:59 23:59 Intake Total 1640 / 1640 120 / 120 Output Total 400 / 400 650 / 650 Balance 1240 / 1240 120 / 120 -650 / -650 Intake: IV Fluids 1640 / 1640 120 / 120 0.9 % Sodium Chloride 1,000 ML 1000 / 1000 @ 75 mls/hr IVC .[id number] [facility] Rx #:[id number] Maxipime 2,000 MG In Water for 20 20 / 20 inj. (sterile) 20 ML @ 300 mls/ hr IVP Q8HR [facility] Rx#:[id number] Zovirax 1,000 MG In Dextrose 5% 270 / 270 250 ML @ 250 mls/hr IVPB Q8H [facility] Rx#:[id number] Flagyl Premix 500 MG/100 ML 500 100 / 100 100 / 100 mg In 100 ml @ 100 mls/hr IVPB Q8HR [facility] Rx#:[id number] Vancocin 1,500 MG In 0.9 % 250 / 250 Sodium Chloride 250 ML @ 166. 667 mls/hr IVPB Q12H [facility] Rx#: [id number] Output: Urine 400 / 400 Catheter 650 / 650 Other: Weight 134 kg Blood Glucose* 108 109 Patient Weight 12/20/17 23:59 Weight 134 kg General appearance: cooperative, no acute distress, no febrile Exam: conversant - Head Head exam: Present: atraumatic - ENT ENT exam: Present: mucous membranes dry Additional comments: ulcerations to bilateral buccal mucosa - Neck Neck exam: Absent: meningismus - Respiratory Respiratory exam: Present: rhonchi. Absent: respiratory distress - Cardiovascular Cardiovascular exam: Present: RRR, +S1, +S2 - GI/Abdominal GI/Abdominal exam: Present: normal bowel sounds, soft. Absent: tenderness Additional comments: colostomy LLQ - Extremities Exam Extremities exam: Present: pedal edema. Absent: calf tenderness - Neurological Exam Neurological exam: Present: alert, oriented X3, no focal deficits, strengths equal and symetr throughout Additional comments: word finding difficulty with slow mentation - Psychiatric Psychiatric exam: Present: normal affect, normal mood - Skin Skin exam: Present: dry, normal color, warm Additional comments: scattered ulcerations to extremities as previously noted Oncology: Obj Data - Labs CBC & Chem 7: 12/20/17 07:55 12/20/17 07:54 - Impressions Impressions Chest CT 12/18/17 17:00 IMPRESSION: Postsurgical changes of the bilateral lungs with progressive volume loss and architectural distortion involving the right lung. Areas of ground-glass opacity and interlobular septal thickening at the right lung base are favored to reflect mild asymmetric edema and/or lymphatic congestion, in part owing to postsurgical changes. No substantial change in right lower lobe pulmonary nodules dating back through at least 06/01/2015. No specific follow-up for these nodules is recommended. No new or enlarging nodule. No substantial change in size of ascending thoracic aortic aneurysm measuring 5.2 cm. Recommend nonemergent vascular surgery consultation if the patient is not already being followed. Also recommend follow-up imaging in 6 months assuming clinical stability. D/ / 12/18/2017 19:05:43 Gary Marcano / josué Interpreting Provider: Gary Marcano Chest X-Ray 12/20/17 11:21 IMPRESSION: 1. Stable right chest wall MediPort. 2. Stable cardiopulmonary status since prior CT. D/ / 12/20/2017 12:22:37 Gina Capone MD / Nkechi Brownlee Interpreting Provider: Gina Capone MD - ABG Interpretation ABG results: PT/INR, D-dimer PT 13.3 Seconds (9.4-12.1) H 12/17/17 01:54 Consult Discharge Plan - Plan Referrals: Maxine Delatorre, INVASIVE PHYSICIAN [Primary Care Provider] - <Candace,Ronak S - Last Filed: 12/21/17 08:22> - Constitutional Vitals: Vital Signs Temp Pulse Resp BP Pulse Ox 12/21/17 07:25 120.7 F H 88 22 183/80 98 12/21/17 02:39 99.7 F H 79 18 133/83 97 12/21/17 01:26 99.6 F 12/20/17 22:48 100.7 F H 79 20 150/77 99 12/20/17 20:46 14 98 12/20/17 18:34 98.9 F 84 20 156/75 98 12/20/17 16:43 18 97 12/20/17 16:38 99.3 F 70 16 164/93 99 12/20/17 11:28 98.8 F 77 16 148/91 97 Intake and Output 12/20/17 12/21/17 12/21/17 16:59 00:59 08:59 Intake Total 120 / 120 980 / 980 1370 / 1370 Output Total 650 / 650 400 / 400 450 / 450 Balance -530 / -530 580 / 580 920 / 920 Intake: IV Fluids 120 / 120 780 / 780 1370 / 1370 0.9 % Sodium Chloride 1,000 ML 1000 / 1000 @ 75 mls/hr IVC .[id number] [facility] Rx #:[id number] Maxipime 2,000 MG In Water for 20 / 20 40 / 40 inj. (sterile) 20 ML @ 300 mls/ hr IVP Q8HR [facility] Rx#:[id number] Ofirmev 1,000 mg/100 ml 1,000 100 / 100 mg In 100 ml @ 400 mls/hr IVPB Q6HR [facility] Rx#:[id number] Zovirax 1,000 MG In Dextrose 5% 540 / 540 270 / 270 250 ML @ 250 mls/hr IVPB Q8H [facility] Rx#:[id number] Flagyl Premix 500 MG/100 ML 500 100 / 100 100 / 100 100 / 100 mg In 100 ml @ 100 mls/hr IVPB Q8HR [facility] Rx#:[id number] Oral 200 / 200 Output: Total Dialysis Output 50 / 50 Catheter 650 / 650 350 / 350 450 / 450 Other: Stool Color Brown Weight 135.5 kg Blood Glucose* 109 106 83 Patient Weight 12/22/17 00:59 Weight 135.5 kg Oncology: Obj Data - Labs CBC & Chem 7: 12/21/17 01:07 12/20/17 07:54 Labs: Laboratory Results - last 24 hr 12/20/17 12/20/17 12/20/17 07:54 07:55 09:43 WBC 6.1 RBC 4.25 Hgb 12.7 L Hct 40.2 MCV 94.6 MCH 29.9 MCHC 31.6 RDW 14.8 H Plt Count 80 L MPV 9.7 Immature Gran % 0.3 Seg Neutrophils % 82.3 Lymphocytes % 9.6 Monocytes % 7.6 Eosinophils % 0.0 Basophils % 0.2 Neutrophils # 5.0 Lymphocytes # 0.6 Monocytes # 0.5 Eosinophils # 0.0 Basophils # 0.0 Immature Plt Fraction 5.5 Sodium 145 Potassium 3.7 Chloride 110 H Carbon Dioxide 31 H BUN 20 Creatinine 1.06 Est GFR ( Amer) > 60 Est GFR (Non-Af Amer) > 60 BUN/Creatinine Ratio 19 Glucose 102 POC Glucose 110 H Calculated Osmolality 303 H Lactic Acid Calcium 8.6 Vancomycin Trough 12/20/17 12/21/17 12/21/17 11:26 01:07 01:07 WBC 8.9 RBC 4.27 Hgb 12.7 L Hct 39.9 MCV 93.4 MCH 29.7 MCHC 31.8 RDW 14.8 H Plt Count 93 L MPV 10.3 Immature Gran % 0.3 Seg Neutrophils % 82.6 Lymphocytes % 9.4 Monocytes % 7.5 Eosinophils % 0.1 Basophils % 0.1 Neutrophils # 7.4 Lymphocytes # 0.8 Monocytes # 0.7 Eosinophils # 0.0 Basophils # 0.0 Immature Plt Fraction 6.6 H Sodium Potassium Chloride Carbon Dioxide BUN Creatinine Est GFR ( Amer) Est GFR (Non-Af Amer) BUN/Creatinine Ratio Glucose POC Glucose 108 H Calculated Osmolality Lactic Acid 0.7 Calcium Vancomycin Trough 12/21/17 01:07 WBC RBC Hgb Hct MCV MCH MCHC RDW Plt Count MPV Immature Gran % Seg Neutrophils % Lymphocytes % Monocytes % Eosinophils % Basophils % Neutrophils # Lymphocytes # Monocytes # Eosinophils # Basophils # Immature Plt Fraction Sodium Potassium Chloride Carbon Dioxide BUN Creatinine Est GFR ( Amer) Est GFR (Non-Af Amer) BUN/Creatinine Ratio Glucose POC Glucose Calculated Osmolality Lactic Acid Calcium Vancomycin Trough 20 H - Impressions Impressions Chest CT 12/18/17 17:00 IMPRESSION: Postsurgical changes of the bilateral lungs with progressive volume loss and architectural distortion involving the right lung. Areas of ground-glass opacity and interlobular septal thickening at the right lung base are favored to reflect mild asymmetric edema and/or lymphatic congestion, in part owing to postsurgical changes. No substantial change in right lower lobe pulmonary nodules dating back through at least 06/01/2015. No specific follow-up for these nodules is recommended. No new or enlarging nodule. No substantial change in size of ascending thoracic aortic aneurysm measuring 5.2 cm. Recommend nonemergent vascular surgery consultation if the patient is not already being followed. Also recommend follow-up imaging in 6 months assuming clinical stability. D/ / 12/18/2017 19:05:43 Gary Marcano / josué Interpreting Provider: Gary Marcano Chest X-Ray 12/20/17 11:21 IMPRESSION: 1. Stable right chest wall MediPort. 2. Stable cardiopulmonary status since prior CT. D/ / 12/20/2017 12:22:37 Gina Capone MD / Nkechi Brownlee Interpreting Provider: Gina Capone MD - ABG Interpretation ABG results: PT/INR, D-dimer PT 13.3 Seconds (9.4-12.1) H 12/17/17 01:54 Inpatient Charges Provider: Dr. Lenny Maria Follow up - Inpatient: [id number] - Attending Attestation I examined this patient and my medical decision-making was reviewed with the Advanced Practice Nurse. I agree with the documented findings, disposition and treatment plan as described except to the extent set forth below. Mr. Ricardo has made significant improvements tentatively. He is back to his baseline. Still with mild forgetfulness and word finding difficulty. No headache or nuchal rigi dity. Fever again overnight. His presentation is consistent with aseptic meningoencephalitis. Etiology remains unclear. I agree this may be a viral process but also may be related to his nivolumab as he had a similar episode following his second last treatment. Appreciate the input from neurology as well as infectious disease. Agree with continuing anti-virals. I think is anti-bacterials can be discontinued or deescalated as he is not immune compromised and no source of bacterial infection has been identified by culture, CT scan or urinalysis. I did discuss the potential implications of holding or discontinuing nivolumab moving forward if an underlying viral process cannot be elucidated. The CSF findings can be found in both processes although the CSF lymphocytosis as well as fever would make me think more of a viral etiology. No new recommendations from our perspective. Please continue steroids as prescribed.
[2017-12-21] MEDS: Acetaminophen IV 1,000 MG/100 ML INFUS..BTL IVPB PRN ×2 (00:04→08:06)
[2017-12-21] MEDS: Cefepime HCl 2,000 MG in Water for inj. (sterile) 20 ML 20 ML IVP SCH ×3 (00:23→17:16)
[2017-12-21] MEDS: MetroNIDAZOLE 500 MG/100 ML 500 MG/100 ML BAG IVPB SCH ×3 (00:26→17:17)
[2017-12-21 01:38] LABS: Basophils % 0.1 %; Immature Granulocytes % 0.3 % (0-4); Lymphocytes % 9.4 %; Segmented Neutrophils % 82.6 %
[2017-12-21 01:40] LABS: Eosinophils % 0.1 %; Hematocrit 39.9 % (37.5-50.1); Hemoglobin 12.7 g/dL (12.9-16.9); Immature Platelets 6.6 % (1.1-6.1); Lymphocytes # 0.8 K/mcL (0.6-4.6); Mean Corpuscular HGB Conc 31.8 g/dL (31.6-35.5); Mean Corpuscular Hemoglobin 29.7 pg (28.0-33.3); Mean Corpuscular Volume 93.4 fL (83.0-100.0); Mean Platelet Volume 10.3 fL (9.4-12.4); Monocytes # 0.7 K/mcL (0.0-1.3); Monocytes % 7.5 %; Red Blood Count 4.27 M/mcL (4.19-5.50); Red Cell Distribution Width 14.8 % (11.5-14.5)
[2017-12-21 01:43] LABS: Neutrophils # 7.4 K/mcL (1.6-8.9); Platelet Count 93 K/mcL (140-400)
[2017-12-21] MEDS: Acyclovir 1,000 MG in D5% in Water 250 ML IVPB SCH ×3 (04:10→17:15)
[2017-12-21] MEDS: 0.9 % Sodium Chloride 1,000 ML IVC SCH (04:19)
[2017-12-21] MEDS: MethylPREDNISolone 40 MG/ML VIAL IVP SCH ×2 (05:52→17:17)
--- NOTE | 2017-12-21 08:01 | Internal Med Progress Note ---
Hospitalist Progress Note - Encounter Date of Encounter: 12/21/17 Time of Encounter: 07:59 - Subjective Interval History: 67M PMH Metastatic primary lung Ca presented with LH/Dizziness admitted with 3 sepsis criteria. Normothermic now. Head CT/MRI negative. LP showed cells 167, protein 101 suggesting immune-mediated encephalopathy. Started on 50mg Solum edrol BID yesterday. BC x 2 from peripheral and port pending from 12/17. Resp panel neg. Imaging suggested RLL PNA. On Vanc/Cefepime/Acyclovir/Flagyl. Followed by ID. N/V Abd Pain at admit, CT Abd/Pelvis neg for acute abn. 24 hr cortisol pending. Left leg ulcer with simple bandaid present, Jocelyn Zafar saw pt yesterday and will continue collagen treatments as per outpatient team. Overnight, pt Tmax 102.7. Oncology team on board. VZV/HSV pending from CSF. Encephalitis etiology viral/immune-mediated awaiting culture results. Overnight pt became more confused and is still A&O x 3 but easily distracted and questions must be asked several times for him to answer, if he answers at all. Mental status seems somewhat declined from yesterday, Neuro plans to do EEG to check for seizure-like activity. Pt diaphoretic, temp overnight recorded incorrectly as 120.7, tech rechecking. Last got tylenol at 8am this morning. Daughter reports that his mental status is very responsive to fever and that he often becomes confused when he is septic. Will closely monitor throughout today. - Exam Vitals: Temp Pulse Resp BP Pulse Ox 120.7 F H 88 22 183/80 98 12/21/17 07:25 12/21/17 07:25 12/21/17 07:25 12/21/17 07:25 12/21/17 07:25 Exam: Gen: Awake, A&O x 3. But mental status is declined from yesterday, difficult to engage in conversation, questions must be asked several times. ENT: mucous membranes moist Cardio: RRR no m/r/g Pulm: Diffuse wheezes in all lung rowell Abd: Normoactive bowel sounds, does not complain of pain on palpation Extremities: Leg ulcer behind left knee, scabbed abrasions healing on left po sterior tibialis area, and on dorsal aspect of left foot. Right extremity unremarkable. Skin: Warm to touch, diaphoretic, intact with exception of noted above in extremities Neuro: Unable to assess due to mental status, inability to follow commands - Assessment and Plan (1) Encephalopathy Current Visit: Yes Status: Acute Assessment and Plan: -possibly viral/immune mediated -no nuchal rigidity -CT and MRI head both non-acute - LP showed cells 167, protein 101 -LP cultures pending -On Acyclovir/Vanc/Zosyn/Flagyl - Solu-medrol 50mg BID - Mental status now much improved, continue to monitor, await culture results (2) CHF (congestive heart failure) Current Visit: No Status: Chronic Assessment and Plan: -h/o CHF, unknown which type -echo 12/17/17: EF 60-65%, mild LV diastolic dysfunction -monitor (3) Adenocarcinoma of lung Current Visit: No Status: Chronic Assessment and Plan: - On Opdivo therapy, last injection 12/12/17 - follows outpt with oncology - oncology onboard during this admission (4) Sepsis Current Visit: Yes Status: Resolved Assessment and Plan: - Blood cultures from peripheral and port pending from 12/17/17 - UA unremarkable - last lactic acid 0.8, repeat pending - cryptococcal antigen negative - flu swab negative - tylenol 1000mg PRN Q6 - Vanc dosing by pharmacy, trough 15 - cefepime 2g Q8 - Acyclovir 1g Q8 - Flagyl 500mg Q8 - ID on board (5) Ulcer of left lower extremity with fat layer exposed Current Visit: No Status: Acute Assessment and Plan: - Pt seeCounts include 234 beds at the [facility] with Dr. Huang since 11/05/17 for this, venous ulcer being treated with collagen - jocelyn Zafar saw pt 12/20/17 and will continue collagen inpatient - follow up after d/c with [facility] (6) Elevated troponin Current Visit: Yes Status: Acute Assessment and Plan: -Could be demand ischemia due to sepsis/kidney failure - EKG failed to demonstrate ischemic changes - pt cannot verbalize chest pain, but altered (7) Fever Current Visit: Yes Status: Acute Assessment and Plan: - Tmax 102.7F last 24 hours - Last IV tylenol infused 0019 12/21/17 - peripheral/port blood cultures pending - see sepsis management for further details (8) Bdgja-qs-hrsfuwz kidney injury Current Visit: Yes Status: Acute Assessment and Plan: -cr at admission was 1.53, now 1.06 - Cr from last several years ~ 1.2-1.4 - Could be at baseline - Continue to renally dose meds, gentle hydration, monitor (9) Lightheaded Current Visit: Yes Status: Resolved Assessment and Plan: -likely due to dehydration -continue neuro checks -MRI non-acute, will not consult neuro at this time -A1c 5.4 -TSH 0.403 -lipid panel unremarkable -Flu A/B negative -monitor BP status -follow up orthostatics -monitor (10) DVT prophylaxis Current Visit: No Status: Acute Assessment and Plan: heparin 5000u SQ Q8 DVT Prophylaxis: heparin 5000u Q8 - Time Spent with Patient Total time spent is greater than 50% in coordination of care (as documented) at patient's floor/unit and/or counseling patient: less than 15 minutes Plan of Care Discussed with: family Internal Medicine: Result - Labs CBC & Chem 7: 12/21/17 01:07 12/21/17 08:41 Labs: Short CBC 12/20/17 12/21/17 Range/Units 07:55 01:07 WBC 6.1 8.9 (4.3-11.1) K/mcL Hgb 12.7 L 12.7 L (12.9-16.9) g/dL Hct 40.2 39.9 (37.5-50.1) % Plt Count 80 L 93 L (140-400) K/mcL Neutrophils # 5.0 7.4 (1.6-8.9) K/mcL BMP 12/20/17 07:54 Sodium 145 Potassium 3.7 Chloride 110 H Carbon Dioxide 31 H BUN 20 Creatinine 1.06 Glucose 102 Calcium 8.6 - ABG Interpretation ABG results: PT/INR, D-dimer PT 13.3 Seconds (9.4-12.1) H 12/17/17 01:54 - Impressions Impressions Chest CT 12/18/17 17:00 IMPRESSION: Postsurgical changes of the bilateral lungs with progressive volume loss and architectural distortion involving the right lung. Areas of ground-glass opacity and interlobular septal thickening at the right lung base are favored to reflect mild asymmetric edema and/or lymphatic congestion, in part owing to postsurgical changes. No substantial change in right lower lobe pulmonary nodules dating back through at least 06/01/2015. No specific follow-up for these nodules is recommended. No new or enlarging nodule. No substantial change in size of ascending thoracic aortic aneurysm measuring 5.2 cm. Recommend nonemergent vascular surgery consultation if the patient is not already being followed. Also recommend follow-up imaging in 6 months assuming clinical stability. D/ / 12/18/2017 19:05:43 Gary Marcano / josué Interpreting Provider: Gary Marcano Chest X-Ray 12/20/17 11:21 IMPRESSION: 1. Stable right chest wall MediPort. 2. Stable cardiopulmonary status since prior CT. D/ / 12/20/2017 12:22:37 Gina Capone MD / Nkechi Brownlee Interpreting Provider: Gina Capone MD Consult Discharge Plan - Plan Referrals: Maxine Delatorre, [employer] [Primary Care Provider] - (3) Adenocarcinoma of lung Qualifiers: Laterality: right Qualified Code(s): C34.91 - Malignant neoplasm of unspecified part of right bronchus or lung (4) Sepsis Qualifiers: Sepsis type: sepsis due to unspecified organism Qualified Code(s): A41.9 - Sepsis, unspecified organism (7) Fever Qualifiers: Fever type: unspecified Qualified Code(s): R50.9 - Fever, unspecified (8) Ccuds-fj-gsyqtgu kidney injury Qualifiers: Acute renal failure type: unspecified Chronic kidney disease stage: stage 2 (mild) Qualified Code(s): N17.9 - Acute kidney failure, unspecified; N18.2 - Chronic kidney disease, stage 2 (mild)
[2017-12-21] MEDS: Aspirin Enteric Coated 81 MG Tablet PO SCH (08:05)
[2017-12-21] MEDS: *HR* Heparin 5,000 UNIT/ML VIAL SQ SCH ×2 (08:06→17:15)
[2017-12-21 09:19] LABS: BUN/Creatinine Ratio 17 (6-26); Blood Urea Nitrogen 20 mg/dL (8-23); Calcium 8.3 mg/dL (8.6-10.3); Carbon Dioxide 28 mEq/L (23-29); Chloride 105 mEq/L (98-107); Glucose 116 mg/dL (70-105); Osmolality,Calculated 288 (280-300); Potassium 3.7 mEq/L (3.5-5.1); Sodium 137 mEq/L (136-145); eGFR For Non-African Americans > 60 (> 60)
--- NOTE | 2017-12-21 09:44 | Neurology Progress Note ---
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 He is also being treated with Solu-Medrol. Patient was febrile overnight Patient noticed to have starring spells while in the room. Also noticed by family. Will order EEG. (2) Acute metabolic encephalopathy Current Visit: Yes Status: Acute Patient is alert to self, place, situation but not time. He reports his confusion has improved. He was afebrile overnight Plan as above. Subjective Principal diagnosis: Meningitis/encephalitis Interval history: Patient is sitting up in bed eating breakfast. He is awake, alert and oriented to self, place, time, situation. However patient has episodes of staring spells the last a few seconds where it is difficult to get his attention. He quickly snaps back from this and becomes attentive. He is also having jerking/tremor like moments mostly LUE. 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, hip flexors, tibialis Anterior, quadriceps, toe extension (EHL), plantarflexion Motor examination - left side: 5/5: deltoids, biceps, triceps, wrist flexion, wrist extension, hip flexors, marine equipment design 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, quadriceps, tibialis Anterior, toe extension (EHL), plantarflexion Sensation intact: Present: intact Reflex and gait examination: other (Gait not tested) Mental Status Examination: Present: awake, alert, oriented to person, oriented to place, follows commands appropriately, opens eyes to voice, not reliable historian Cranial nerve examination: Present: PERRL, EOMI, sensory to face intact, no facial asymmetry is present, no dysarthria, hearing is intact symmetrically, soft palate elevates bilaterally upon phonation, flexes SCM and trapezius muscles symmetrically with full power, tongue protrudes midline, no atrophy or facial fasiculations present Cerebellar examination: Present: no dysmetria Results - Laboratory Findings CBC and BMP: 12/21/17 01:07 12/21/17 08:41 Abnormal lab findings: Abnormal lab results Hgb 12.7 g/dL (12.9-16.9) L 12/21/17 01:07 RDW 14.8 % (11.5-14.5) H 12/21/17 01:07 Plt Count 93 K/mcL (140-400) L 12/21/17 01:07 Immature Plt Fraction 6.6 % (1.1-6.1) H 12/21/17 01:07 PT 13.3 Seconds (9.4-12.1) H 12/17/17 01:54 Glucose 116 mg/dL (70-105) H 12/21/17 08:41 Calcium 8.3 mg/dL (8.6-10.3) L 12/21/17 08:41 Phosphorus 1.9 mg/dL (2.7-4.5) L 12/19/17 04:10 Troponin I 0.06 ng/mL (< 0.04) H* 12/17/17 12:41 HDL Cholesterol 27 mg/dL (40-59) L 12/18/17 04:25 Cholesterol/HDL Ratio 5.6 (0-4.9) H 12/18/17 04:25 Total Testosterone 107 ng/dL (280-1100) L 12/18/17 04:25 Ur Specific [place] 1.030 (1.010-1.025) H 12/17/17 05:38 CSF Tot Nucleated Cells 167 TNC/mcL (0-5) H* 12/19/17 13:01 CSF Total Protein 104 mg/dL (15-45) H 12/19/17 13:01 Vancomycin Trough 20 mcg/mL (5-10) H 12/21/17 01:07 Consult Discharge Plan - Plan Referrals: Maxine Delatorre, JOSELO [Primary Care Provider] - <Peter Marti - Last Filed: 12/21/17 15:24> Time of Encounter: 15:11 Assessment and Plan (1) Acute encephalopathy Current Visit: Yes Status: Acute (2) Acute metabolic encephalopathy Current Visit: Yes Status: Acute At this juncture I agree with the overall assessment of this case. 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 I would recommend maintaining acyclovir pending the HSV culture result. I will reevaluate him in the morning if he is still here. Subjective Interval history: The chart was reviewed, the patient was seen and examined independently. The patient is currently on autoimmune therapy for treatment of small cell lung cancer. He had presented with complaints of headaches some nuchal stiffness as well as confusion. Lumbar puncture did reveal elevated nucleated cells with a lymphocytic preponderance. The bulk of the viral cultures have returned negative. HSV remains outstanding. Clinically patient was sleeping upon my entering the room, was easily aroused to voice. He is oriented 3. He does however complain of chills and general malaise. He denies headache currently. I did repeat his EEG moments ago. He does have sinus tachycardia at 104 bpm. The EEG was slow and disorganized consistent with a mild to moderate generalized encephalopathy. I did not however identify epileptiform activity. I did review the MRI scan of the brain personally and it was negative for any evidence of acute process. Objective - Constitutional Vitals: Temp Pulse Resp BP Pulse Ox 99.1 F 82 20 134/79 91 12/21/17 11:05 12/21/17 11:05 12/21/17 11:05 12/21/17 11:05 12/21/17 11:05 - Neurological Exam Reflex and gait examination: other Results - Laboratory Findings CBC and BMP: 12/21/17 01:07 12/21/17 08:41 Abnormal lab findings: Abnormal lab results Hgb 12.7 g/dL (12.9-16.9) L 12/21/17 01:07 RDW 14.8 % (11.5-14.5) H 12/21/17 01:07 Plt Count 93 K/mcL (140-400) L 12/21/17 01:07 Immature Plt Fraction 6.6 % (1.1-6.1) H 12/21/17 01:07 PT 13.3 Seconds (9.4-12.1) H 12/17/17 01:54 Glucose 116 mg/dL (70-105) H 12/21/17 08:41 Calcium 8.3 mg/dL (8.6-10.3) L 12/21/17 08:41 Phosphorus 1.9 mg/dL (2.7-4.5) L 12/19/17 04:10 Troponin I 0.06 ng/mL (< 0.04) H* 12/17/17 12:41 HDL Cholesterol 27 mg/dL (40-59) L 12/18/17 04:25 Cholesterol/HDL Ratio 5.6 (0-4.9) H 12/18/17 04:25 Total Testosterone 107 ng/dL (280-1100) L 12/18/17 04:25 Ur Specific [place] 1.030 (1.010-1.025) H 12/17/17 05:38 CSF Tot Nucleated Cells 167 TNC/mcL (0-5) H* 12/19/17 13:01 CSF Total Protein 104 mg/dL (15-45) H 12/19/17 13:01 Vancomycin Trough 20 mcg/mL (5-10) H 12/21/17 01:07
--- NOTE | 2017-12-21 09:49 | Infectious Disease Progress No ---
Date of Encounter: 12/21/17 Time of Encounter: 09:46 - Assessment and Plan (1) Sepsis Current Visit: Yes Status: Resolved Severe sepsis: 3 sepsis criteria noted on admission with acute kidney injury and elevated troponin. 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 White blood cell count has normalized. Tmax 101.8 overnight, but fever curve is improving. Tachycardia and tachypnea have resolved. Mental status appears to be back to baseline. Blood cultures drawn 2 sets from peripheral stick and are NGTD 2 sets. Repeat blood cultures drawn on 12/17/17 from the patient's A-port are NGTD 2 sets. Flu antigen swab was negative. RIP was negative. Chest x-ray showed right lung pleural parenchymal abnormality favored to be chronic in post treatment, but superimposed pneumonia cannot be excluded. CT abdomen and pelvis was negative for acute abnormality. CT and MRI of the head were also negative. CT chest negative for infectious etiology. Repeat blood cultures x2 sets peripherally and x2 sets from the A-port now. Continue cefepime 2 g IV every 8 hours for now. Continue Flagyl 500 mg IV 3 times a day for now. Will continue to de-escalate as the patient's clinical picture warrants. Duration of treatment depends on the clinical picture. Monitor renal function dose adjust antibiotics. Qualifiers: Sepsis type: sepsis due to unspecified organism Qualified Code(s): A41.9 - Sepsis, unspecified organism (2) Meningoencephalitis Current Visit: Yes Status: Acute Causative organism: Unclear, but likely viral vs autoimmune. CT and MRI of the head are both negative for acute abnormality. Neurology consulted. Appreciate assistance. Attempted LP at bedside, but unsuccessful. Status post LP 12/19/17 by interventional radiology. Pleocytosis with lymphocytic predominance noted. CSF gram stain negative, culture is no growth. HSV and VZV PCR are pending. Check cryptococcal antigen.--> negative. Continue acyclovir 10 mg/kg IV every 8 hours. Dosing discussed with Jung, Pharm.D. States will use adjusted body weight to maintain adequate drug levels. Monitor renal function and dose adjust medications. (3) Acute encephalopathy Current Visit: Yes Status: Acute Secondary to meningoencephalitis. Improved. Continue to monitor closely. (4) Pneumonia Current Visit: No Status: Ruled-out Chest x-ray showed right lung pleural parenchymal abnormality failure to be chronic and posttreatment related when compared to prior imaging, but difficult to exclude superimposed acute infectious airspace disease. CT chest negative for PNA. Check respiratory infectious panel.--> negative. Qualifiers: Pneumonia type: due to unspecified organism Laterality: right Lung location: lower lobe of lung Qualified Code(s): J18.1 - Lobar pneumonia, unspecified organism (5) Jumqs-jp-rczysni kidney injury Current Visit: Yes Status: Acute Likely secondary to sepsis. Improved. Continue to trend. Check BMP now. Monitor renal function and dose adjust antibiotics. Avoid nephrotoxins as able. Qualifiers: Acute renal failure type: unspecified Chronic kidney disease stage: stage 2 (mild) Qualified Code(s): N17.9 - Acute kidney failure, unspecified; N18.2 - Chronic kidney disease, stage 2 (mild) (6) Lightheaded Current Visit: Yes Status: Resolved Likely secondary to sepsis. CT and MRI of the head are both negative for acute abnormality. Neurology evaluation noted and appreciated. Resolved. (7) Elevated troponin Current Visit: Yes Status: Acute Troponins elevated at 0.07, 0.08, 0.06. The patient denies any chest pain. Further workup and management per the primary team. (8) CHF (congestive heart failure) Current Visit: Yes Status: Chronic Qualifiers: Heart failure type: unspecified Heart failure chronicity: chronic Qualified Code(s): I50.9 - Heart failure, unspecified (9) CKD (chronic kidney disease) Current Visit: No Status: Chronic Qualifiers: Chronic kidney disease stage: stage 3 (moderate) Qualified Code(s): N18.3 - Chronic kidney disease, stage 3 (moderate) (10) Metastatic primary lung cancer Current Visit: Yes Status: Acute Diagnosed in 2013 with primary lung adenocarcinoma. Remote history of right upper lobe lobectomy. Positive for pulmonary nodules with evidence of metastatic disease in 2015. Status post wedge resection of the right lung nodules 4. Started on Nivolumab [id number] in December 2016. Transitioned to Q4 week dosing in June 2017. Last dose 12/12/17. Hem/Onc consulted and following. Qualifiers: Laterality: right Qualified Code(s): C34.91 - Malignant neoplasm of unspecified part of right bronchus or lung (11) Morbid obesity with BMI of 40.0-44.9, adult Current Visit: No Status: Chronic (12) Nausea and vomiting Current Visit: Yes Status: Resolved Etiology unclear: possible opiate withdraw. CT of the abdomen and pelvis negative for acute abnormality. Started on morphine gtt by the primary team since the patient was NPO. Appears improved. Management per the primary team. Qualifiers: Vomiting type: unspecified Vomiting Intractability: unspecified Qualified Code(s): R11.2 - Nausea with vomiting, unspecified (13) Myoclonic jerking Current Visit: Yes Status: Acute Etiology unclear. Neurology consulted and following. - Subjective Interval history: Patient seen and examined with his daughter at the bedside. No acute events noted overnight. Patient is awake, alert, oriented x 3 and able to communicate today, but appears slower to respond to questions today. Reports he is currently hot and had a fever overnight. Denies headache, dizziness, or neck pain. Denies chest pain or shortness of breath, but does have a dry cough. Denies nausea, vomiting, or diarrhea. Reports good output from his colostomy. Abdi catheter remains patent. Denies abdominal pain, urinary complaints. Reports he has been able to eat a little. Denies oral thrush or new skin lesions. Denies back, joint, or extremity pain. Infect Dis PN-Objective Data - Labs CBC & Chem 7: 12/21/17 01:07 12/21/17 08:41 Labs: Laboratory Results - last 24 hr 12/20/17 12/20/17 12/20/17 09:43 11:26 16:35 WBC RBC Hgb Hct MCV MCH MCHC RDW Plt Count MPV Immature Gran % Seg Neutrophils % Lymphocytes % Monocytes % Eosinophils % Basophils % Neutrophils # Lymphocytes # Monocytes # Eosinophils # Basophils # Immature Plt Fraction Sodium Potassium Chloride Carbon Dioxide BUN Creatinine Est GFR ( Amer) Est GFR (Non-Af Amer) BUN/Creatinine Ratio Glucose POC Glucose 110 H 108 H 109 H Calculated Osmolality Lactic Acid Calcium Vancomycin Trough 12/21/17 12/21/17 12/21/17 01:07 01:07 01:07 WBC 8.9 RBC 4.27 Hgb 12.7 L Hct 39.9 MCV 93.4 MCH 29.7 MCHC 31.8 RDW 14.8 H Plt Count 93 L MPV 10.3 Immature Gran % 0.3 Seg Neutrophils % 82.6 Lymphocytes % 9.4 Monocytes % 7.5 Eosinophils % 0.1 Basophils % 0.1 Neutrophils # 7.4 Lymphocytes # 0.8 Monocytes # 0.7 Eosinophils # 0.0 Basophils # 0.0 Immature Plt Fraction 6.6 H Sodium Potassium Chloride Carbon Dioxide BUN Creatinine Est GFR ( Amer) Est GFR (Non-Af Amer) BUN/Creatinine Ratio Glucose POC Glucose Calculated Osmolality Lactic Acid 0.7 Calcium Vancomycin Trough 20 H 12/21/17 12/21/17 08:11 08:41 WBC RBC Hgb Hct MCV MCH MCHC RDW Plt Count MPV Immature Gran % Seg Neutrophils % Lymphocytes % Monocytes % Eosinophils % Basophils % Neutrophils # Lymphocytes # Monocytes # Eosinophils # Basophils # Immature Plt Fraction Sodium 137 Potassium 3.7 Chloride 105 Carbon Dioxide 28 BUN 20 Creatinine 1.19 Est GFR ( Amer) > 60 Est GFR (Non-Af Amer) > 60 BUN/Creatinine Ratio 17 Glucose 116 H POC Glucose 83 Calculated Osmolality 288 Lactic Acid Calcium 8.3 L Vancomycin Trough Cultures: Cultures 12/19/17 13:01 CSF Culture - Preliminary Cerebral Spinal Fluid 12/18/17 11:53 Cryptococcal Antigen - Final Serum 12/17/17 22:35 Blood Culture - Preliminary Port System Culture is incubating and being continuously monitored for growth. Final report to follow. 12/17/17 22:35 Blood Culture - Preliminary Port System Culture is incubating and being continuously monitored for growth. Final report to follow. 12/17/17 10:05 Influenza Types A,B Antigen - Final Nasopharyngeal 12/17/17 07:10 Blood Culture - Preliminary Peripheral Venipuncture Culture is incubating and being continuously monitored for growth. Final report to follow. 12/17/17 07:16 Blood Culture - Preliminary Peripheral Venipuncture Culture is incubating and being continuously monitored for growth. Final report to follow. Serology 12/19/17 12/18/17 12/17/17 Range/Units 13:01 11:53 05:38 Urine Color Yellow (Yellow) Urine Clarity Clear (Clear) Urine pH 5.5 (5.0-8.0) pH Units Ur Specific [place] 1.030 H (1.010-1.025) Urine Protein Negative (Neg-Trace) mg/dL Urine Glucose (UA) Normal (Normal) mg/dL Urine Ketones Negative (Negative) mg/dL Urine Blood Negative (Negative) Urine Nitrite Negative (Negative) Urine Bilirubin Negative (Negative) Urine Urobilinogen Normal (Normal) mg/dL Ur Leukocyte Esterase Negative (Negative) Ur Culture Indicated? NO (NO) CSF Volume 11.0 mL CSF Appearance Clear (Clear) CSF Color Colorless (Colorless) CSF RBC < 0.002 (0.000 - 0.002) M/mcL CSF Tot Nucleated Cells 167 H* (0-5) TNC/mcL CSF Seg Neutrophils 5.0 % CSF Band Neutrophils % 4.0 % CSF Lymphocytes % 79.0 % CSF Monocytes % 12.0 % CSF Eosinophils % Test Not Performed CSF Basophils % Test Not Performed CSF Other Cells % Test Not Performed CSF Glucose 66 (40-70) mg/dL CSF Xanth Comm Not Observed (Not Observe) CSF Total Protein 104 H (15-45) mg/dL Chlamy pneumoniae PCR Not Detected (Not Detect) Adenovirus (PCR) Not Detected (Not Detect) B. pertussis DNA (PCR) Not Detected (Not Detect) B.parapertussis DNA PCR Not Detected (Not Detect) Coronavirus OC43 (PCR) Not Detected (Not Detect) Coronavirus HKU1 (PCR) Not Detected (Not Detect) Coronavirus 229E (PCR) Not Detected (Not Detect) Coronavirus NL63 (PCR) Not Detected (Not Detect) Human Metapneumovir PCR Not Detected (Not Detect) Influenza A (H1) PCR Not Detected (Not Detect) Influ A (H1N1/09) PCR Not Detected (Not Detect) Influenza A (H3) PCR Not Detected (Not Detect) Influenza A Untype (PCR) Not Detected (Not Detect) Influenza Type B (PCR) Not Detected (Not Detect) M.pneumoniae DNA (PCR) Not Detected (Not Detect) Parainfluenza 1 (PCR) Not Detected (Not Detect) Parainfluenza 2 (PCR) Not Detected (Not Detect) Parainfluenza 3 (PCR) Not Detected (Not Detect) Parainfluenza 4 (PCR) Not Detected (Not Detect) RSV (PCR) Not Detected (Not Detect) Entero/Rhino (PCR) Not Detected (Not Detect) - Impressions Impressions Chest CT 12/18/17 17:00 IMPRESSION: Postsurgical changes of the bilateral lungs with progressive volume loss and architectural distortion involving the right lung. Areas of ground-glass opacity and interlobular septal thickening at the right lung base are favored to reflect mild asymmetric edema and/or lymphatic congestion, in part owing to postsurgical changes. No substantial change in right lower lobe pulmonary nodules dating back through at least 06/01/2015. No specific follow-up for these nodules is recommended. No new or enlarging nodule. No substantial change in size of ascending thoracic aortic aneurysm measuring 5.2 cm. Recommend nonemergent vascular surgery consultation if the patient is not already being followed. Also recommend follow-up imaging in 6 months assuming clinical stability. D/ / 12/18/2017 19:05:43 Gary Marcano / josué Interpreting Provider: Gary Marcano Chest X-Ray 12/20/17 11:21 IMPRESSION: 1. Stable right chest wall [facility]. 2. Stable cardiopulmonary status since prior CT. D/ / 12/20/2017 12:22:37 Gina Capone MD / Nkechi Brownlee Interpreting Provider: Gina Capone MD Exam - Constitutional Vitals: Temp Pulse Resp BP Pulse Ox 120.7 F H 88 22 183/80 98 12/21/17 07:25 12/21/17 07:25 12/21/17 07:25 12/21/17 07:25 12/21/17 07:25 General appearance: cooperative, morbidly obese, no acute distress - Head Head exam: Present: atraumatic, normal inspection, normocephalic - Eye Eye exam: Present: EOMI, normal appearance, PERRL Pupils: Present: normal accommodation - ENT ENT exam: Present: mucous membranes moist - Neck Neck exam: Present: normal inspection. Absent: meningismus - Respiratory Respiratory exam: Present: wheezes (Faint expiratory wheezes throughout). Absent: rales, respiratory distress, rhonchi, tachypnea - Cardiovascular Cardiovascular exam: Present: RRR, +S1, +S2 - GI/Abdominal GI/Abdominal exam: Present: distended (obese), normal bowel sounds, soft. Absent: tenderness Additional comments: Colostomy noted to the left abdomen with dark brown liquid stool noted in the collection bag. Stoma is prolapsed but remains beefy red. Abdi catheter remains patent draining clear yellow urine. - Extremities Exam Extremities exam: Absent: joint swelling, normal inspection (Allevyn dressing noted to the left superior calf without surrounding erythema, warmth, or tenderness.), pedal edema, tenderness - Neurological Exam Neurological exam: Present: alert, oriented X3, no focal deficits Additional comments: Answers questions and follows commands appropriately, but responses are delayed. Continues to have intermittent jerking of the BUE. - Psychiatric Psychiatric exam: Present: normal affect, normal mood - Skin Skin exam: Present: dry, intact, normal color, warm Consult Discharge Plan - Plan Referrals: Maxine Delatorre, HEALTHCARE ADMINISTRATIVE ASSISTANT [Primary Care Provider] - - Attending Attestation I examined this patient and my medical decision-making was reviewed with the Resident Physician. I agree with the documented findings, disposition and treatment plan as described except to the extent set forth below.
[2017-12-21] MEDS: Ipratropium/Albuterol Neb 3 ML IH SCH ×3 (10:29→22:01)
[2017-12-21] MEDS: *HR* Morphine Sulfate SR (12 HR) 30 MG TABLET.ER PO SCH (12:37)
--- NOTE | 2017-12-21 15:49 | Electrocardiograph Report ---
[address] [place], [place] [address] Test Date: 2017-12-17 Pat Name: Darien Ricardo Department: [id number] Room: 2A Gender: M C Web Developer: : 1950 Requested By: Angel Wang Order Number: [id number] Reading MD: Tanvir Morris Measurements Intervals [place] Rate: 103 P: 44 AL: 160 QRS: -19 QRSD: 98 T: 23 QT: 334 QTc: 438 Interpretive Statements Sinus tachycardia Possible anterior infarction, age undetermined Low voltage in limb leads Electronically Signed On 12-21-2017 15:47:17 EDT by Tanivr Morris
[2017-12-21] MEDS ORDERED: Acetaminophen IV 1,000 MG/100 ML INFUS..BTL IVPB PRN ×2 (17:50→18:00)
[2017-12-21] MEDS ORDERED: Ipratropium/Albuterol Neb 3 ML IH ONE (18:06)
[2017-12-21 18:37] LABS: Basophils % 0.1 %; Hematocrit 39.8 % (37.5-50.1); Hemoglobin 12.9 g/dL (12.9-16.9); Mean Corpuscular HGB Conc 32.4 g/dL (31.6-35.5); Mean Corpuscular Hemoglobin 29.9 pg (28.0-33.3); Mean Corpuscular Volume 92.3 fL (83.0-100.0); Red Blood Count 4.31 M/mcL (4.19-5.50); Red Cell Distribution Width 14.4 % (11.5-14.5)
[2017-12-21 18:39] LABS: Immature Granulocytes % 0.4 % (0-4); Immature Platelets 7.1 % (1.1-6.1); Lymphocytes # 0.6 K/mcL (0.6-4.6); Lymphocytes % 8.8 %; Mean Platelet Volume 11.2 fL (9.4-12.4); Monocytes # 0.5 K/mcL (0.0-1.3); Monocytes % 7.2 %; Segmented Neutrophils % 83.5 %
[2017-12-21 18:41] LABS: Neutrophils # 5.9 K/mcL (1.6-8.9); Platelet Count 91 K/mcL (140-400)
[2017-12-21 18:57] LABS: Alanine Aminotransferase 11 Units/L (7-52); Albumin 3.1 g/dL (3.5-5.7); Albumin/Globulin Ratio 1.3 (1.1-2.2); Alkaline Phosphatase 35 Units/L (34-104); Aspartate Amino Transferase 9 Units/L (13-39); BUN/Creatinine Ratio 17 (6-26); Bilirubin,Total 0.5 mg/dL (0.3-1.0); Blood Urea Nitrogen 19 mg/dL (8-23); Carbon Dioxide 29 mEq/L (23-29); Chloride 104 mEq/L (98-107); Globulin 2.4 g/dL (2.4-3.5); Glucose 116 mg/dL (70-105); Magnesium 1.6 mg/dL (1.6-2.6); Osmolality,Calculated 287 (280-300); Sodium 137 mEq/L (136-145); Total Protein 5.5 g/dL (6.4-8.9); eGFR For Non-African Americans > 60 (> 60)
--- NOTE | 2017-12-21 19:27 | Oncology Inp Progress Note ---
<Darling Enrique L - Last Filed: 12/21/17 15:01> Date of Encounter: 12/21/17 Time of Encounter: 11:30 (1) Adenocarcinoma of lung Current Visit: No Status: Chronic Assessment and plan: Recurrent non-small cell lung cancer (adenocarcinoma), currently on second line of treatment with Nivolumab 480 mg IV Q4 weeks since 07/26/2017 (previously on Nivolumab 240 mg IV Q2 weeks initiated 01/08/2017). Last nivolumab treatment was 12/12/2017. 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 From an oncology standpoint continue solumedrol for possible immune mediated effect until we have confirmation of source If no viral source is identified, will then likely need to base etiology as autoimmune secondary to Nivolumab treatment (discussed as above) Appreciate further recommendations per ID/Neuro Qualifiers: Sepsis type: sepsis due to unspecified organism Qualified Code(s): A41.9 - Sepsis, unspecified organism (3) Myoclonic jerking Current Visit: Yes Status: Acute Assessment and plan: Noted during assessment today Patients family are reporting "blank staring" at times Reviewed neurology noted. EEG has been ordered Appreciate further recs per neuro Oncology: Subj Interval history: Mr. Ricardo has taken a slight step back today in comparison to yesterday. He was febrile overnight. He is experiencing blank stare spells. His jerking movements appears to have mildly worsened. Continues to have word finding difficulty and a slow mentation which may have slightly worsened overnight. His family endorse these concerns as well. He is alert and responds to voice, he continues to be oriented x3. Denies pain and exhibits no meningeal signs. - Constitutional Vitals: Vital Signs Temp Pulse Resp BP Pulse Ox 12/21/17 11:05 99.1 F 82 20 134/79 91 12/21/17 10:31 22 94 12/21/17 09:51 99.0 F 12/21/17 07:25 102.7 F H 88 22 183/80 98 12/21/17 02:39 99.7 F H 79 18 133/83 97 12/21/17 01:26 99.6 F 12/20/17 22:48 100.7 F H 79 20 150/77 99 12/20/17 20:46 14 98 12/20/17 18:34 98.9 F 84 20 156/75 98 12/20/17 16:43 18 97 12/20/17 16:38 99.3 F 70 16 164/93 99 Intake and Output 12/20/17 12/21/17 12/21/17 23:59 07:59 15:59 Intake Total 860 / 860 1490 / 1490 Output Total 1050 / 1050 450 / 450 Balance -190 / -190 1040 / 1040 Intake: IV Fluids 660 / 660 1490 / 1490 0.9 % Sodium Chloride 1,000 ML 1000 / 1000 @ 75 mls/hr IVC .[id number] [facility] Rx #:[id number] Maxipime 2,000 MG In Water for 20 / 20 20 / 20 inj. (sterile) 20 ML @ 300 mls/ hr IVP Q8HR [facility] Rx#:[id number] Ofirmev 1,000 mg/100 ml 1,000 100 / 100 mg In 100 ml @ 400 mls/hr IVPB Q6HR PRN Rx#:[id number] Zovirax 1,000 MG In Dextrose 5% 540 / 540 270 / 270 250 ML @ 250 mls/hr IVPB Q8H [facility] Rx#:[id number] Flagyl Premix 500 MG/100 ML 500 100 / 100 100 / 100 mg In 100 ml @ 100 mls/hr IVPB Q8HR [facility] Rx#:[id number] Oral 200 / 200 Output: Total Dialysis Output 50 / 50 Catheter 1000 / 1000 450 / 450 Other: Stool Color Brown Weight 135.5 kg Blood Glucose* 106 132 Patient Weight 12/21/17 23:59 Weight 135.5 kg General appearance: cooperative, no acute distress, no febrile - Head Head exam: Present: atraumatic - ENT ENT exam: Present: mucous membranes moist Additional comments: bilateral buccal lesions as previously noted - Respiratory Respiratory exam: Present: rhonchi, wheezes. Absent: respiratory distress - Cardiovascular Cardiovascular exam: Present: RRR, +S1, +S2 - GI/Abdominal GI/Abdominal exam: Present: normal bowel sounds, soft. Absent: tenderness Additional comments: colostomy present - Extremities Exam Extremities exam: Present: pedal edema. Absent: calf tenderness - Neurological Exam Neurological exam: Present: alert, oriented X3, no focal deficits Additional comments: slow mentation, difficulty with word processing and word finding, myoclonic jerking movements noted - Psychiatric Psychiatric exam: Present: flat affect - Skin Skin exam: Present: dry, intact, normal color, warm Additional comments: scattered ulcerations as previously noted Oncology: Obj Data - Labs CBC & Chem 7: 12/21/17 01:07 12/21/17 08:41 - Impressions Impressions Chest X-Ray 12/20/17 11:21 IMPRESSION: 1. Stable right chest wall MediPort. 2. Stable cardiopulmonary status since prior CT. D/ / 12/20/2017 12:22:37 Gina Capone MD / Nkechi Brownlee Interpreting Provider: Gina Capone MD - ABG Interpretation ABG results: PT/INR, D-dimer PT 13.3 Seconds (9.4-12.1) H 12/17/17 01:54 Consult Discharge Plan - Plan Referrals: Maxine Delatorre [employer] [Primary Care Provider] - <Cynthia Gibson - Last Filed: 12/21/17 19:58> Oncology: Subj Interval history: I examined this patient and my medical decision-making was reviewed with the Advanced Practice Nurse, Darling Enrique. I agree with the documented findings, disposition and treatment plan as described except to the extent set forth below. - Constitutional Vitals: Vital Signs Temp Pulse Resp BP Pulse Ox 12/21/17 19:37 103.1 F H 95 17 143/82 95 12/21/17 17:00 102.2 F H 102 21 136/81 97 12/21/17 11:05 99.1 F 82 20 134/79 91 12/21/17 10:31 22 94 12/21/17 09:51 99.0 F 12/21/17 07:25 102.7 F H 88 22 183/80 98 12/21/17 02:39 99.7 F H 79 18 133/83 97 12/21/17 01:26 99.6 F 12/20/17 22:48 100.7 F H 79 20 150/77 99 12/20/17 20:46 14 98 Intake and Output 12/21/17 12/21/17 12/21/17 07:59 15:59 23:59 Intake Total 1490 / 1490 390 / 390 Output Total 450 / 450 Balance 1040 / 1040 390 / 390 Intake: IV Fluids 1490 / 1490 390 / 390 0.9 % Sodium Chloride 1,000 ML 1000 / 1000 @ 75 mls/hr IVC .[id number] [facility] Rx #:[id number] Maxipime 2,000 MG In Water for 20 20 20 / 20 inj. (sterile) 20 ML @ 300 mls/ hr IVP Q8HR [facility] Rx#:[id number] Ofirmev 1,000 mg/100 ml 1,000 100 / 100 mg In 100 ml @ 400 mls/hr IVPB Q6HR PRN Rx#:[id number] Zovirax 1,000 MG In Dextrose 5% 270 / 270 270 / 270 250 ML @ 250 mls/hr IVPB Q8H [facility] Rx#:[id number] Flagyl Premix 500 MG/100 ML 500 100 / 100 100 / 100 mg In 100 ml @ 100 mls/hr IVPB Q8HR [facility] Rx#:[id number] Output: Catheter 450 / 450 Other: Weight 135.5 kg Blood Glucose* 132 114 Patient Weight 12/21/17 23:59 Weight 135.5 kg Oncology: Obj Data - Labs CBC & Chem 7: 12/21/17 18:29 12/21/17 18:29 Labs: Laboratory Results - last 24 hr 12/20/17 12/20/17 12/21/17 16:35 20:11 01:07 WBC 8.9 RBC 4.27 Hgb 12.7 L Hct 39.9 MCV 93.4 MCH 29.7 MCHC 31.8 RDW 14.8 H Plt Count 93 L MPV 10.3 Immature Gran % 0.3 Seg Neutrophils % 82.6 Lymphocytes % 9.4 Monocytes % 7.5 Eosinophils % 0.1 Basophils % 0.1 Neutrophils # 7.4 Lymphocytes # 0.8 Monocytes # 0.7 Eosinophils # 0.0 Basophils # 0.0 Immature Plt Fraction 6.6 H Sodium Potassium Chloride Carbon Dioxide BUN Creatinine Est GFR ( Amer) Est GFR (Non-Af Amer) BUN/Creatinine Ratio Glucose POC Glucose 109 H 106 H Calculated Osmolality Lactic Acid Calcium Phosphorus Magnesium Total Bilirubin AST ALT Alkaline Phosphatase Serum Total Protein Albumin Globulin Albumin/Globulin Ratio Vancomycin Trough 12/21/17 12/21/17 12/21/17 01:07 01:07 08:11 WBC RBC Hgb Hct MCV MCH MCHC RDW Plt Count MPV Immature Gran % Seg Neutrophils % Lymphocytes % Monocytes % Eosinophils % Basophils % Neutrophils # Lymphocytes # Monocytes # Eosinophils # Basophils # Immature Plt Fraction Sodium Potassium Chloride Carbon Dioxide BUN Creatinine Est GFR ( Amer) Est GFR (Non-Af Amer) BUN/Creatinine Ratio Glucose POC Glucose 83 Calculated Osmolality Lactic Acid 0.7 Calcium Phosphorus Magnesium Total Bilirubin AST ALT Alkaline Phosphatase Serum Total Protein Albumin Globulin Albumin/Globulin Ratio Vancomycin Trough 20 H 12/21/17 12/21/17 12/21/17 08:41 11:12 18:29 WBC 7.0 RBC 4.31 Hgb 12.9 Hct 39.8 MCV 92.3 MCH 29.9 MCHC 32.4 RDW 14.4 Plt Count 91 L MPV 11.2 Immature Gran % 0.4 Seg Neutrophils % 83.5 Lymphocytes % 8.8 Monocytes % 7.2 Eosinophils % 0.0 Basophils % 0.1 Neutrophils # 5.9 Lymphocytes # 0.6 Monocytes # 0.5 Eosinophils # 0.0 Basophils # 0.0 Immature Plt Fraction 7.1 H Sodium 137 Potassium 3.7 Chloride 105 Carbon Dioxide 28 BUN 20 Creatinine 1.19 Est GFR ( Amer) > 60 Est GFR (Non-Af Amer) > 60 BUN/Creatinine Ratio 17 Glucose 116 H POC Glucose 132 H Calculated Osmolality 288 Lactic Acid Calcium 8.3 L Phosphorus Magnesium Total Bilirubin AST ALT Alkaline Phosphatase Serum Total Protein Albumin Globulin Albumin/Globulin Ratio Vancomycin Trough 12/21/17 12/21/17 18:29 18:29 WBC RBC Hgb Hct MCV MCH MCHC RDW Plt Count MPV Immature Gran % Seg Neutrophils % Lymphocytes % Monocytes % Eosinophils % Basophils % Neutrophils # Lymphocytes # Monocytes # Eosinophils # Basophils # Immature Plt Fraction Sodium 137 Potassium 4.0 Chloride 104 Carbon Dioxide 29 BUN 19 Creatinine 1.09 Est GFR ( Amer) > 60 Est GFR (Non-Af Amer) > 60 BUN/Creatinine Ratio 17 Glucose 116 H POC Glucose Calculated Osmolality 287 Lactic Acid 0.8 Calcium 8.0 L Phosphorus 2.0 L Magnesium 1.6 Total Bilirubin 0.5 AST 9 L ALT 11 Alkaline Phosphatase 35 Serum Total Protein 5.5 L Albumin 3.1 L Globulin 2.4 Albumin/Globulin Ratio 1.3 Vancomycin Trough - ABG Interpretation ABG results: PT/INR, D-dimer PT 13.3 Seconds (9.4-12.1) H 12/17/17 01:54 Inpatient Charges Provider: Dr. Lenny Gibson Follow up - Inpatient: [id number]
--- NOTE | 2017-12-21 19:27 | EEG/EMG/Oth Biometrics Report ---
EEG Procedure Report Date of procedure: 12/21/17 EEG Procedure: Routine EEG Procedure Note: This is a report of a 21 channel bipolar and referential montage EEG. There is no posterior dominant alpha rhythm identified during the recording. The posterior dominant rhythm consisted of mixed theta and some alpha frequencies ranging from 6-7 Hz. This rhythm however is poorly organized and poorly sustained. Hyperventilation is not performed in the wrist recording. Occasional of vertex activity as well as K complexes and sleep spindles identified consistent with stage II sleep. Photic stimulations performed and does not produce a driving response. There is no evidence of epileptiform acti vity identified during the study. The EKG rhythm strip reveals sinus tachycardia at 104 bpm. Impressions: This EEG recording is abnormal and is consistent with a mild to moderate generalized encephalopathy. There is no evidence of epileptiform activity identified during the study. Comment: Etiologies of this interpretation might include toxic, metabolic, postictal, degenerative. Also note sinus tachycardia at 104 bpm. Please correlate clinically. A normal EEG does not preclude a diagnosis of seizure or epilepsy. If the clinical suspicion for seizure activity is high, serial EEGs or perhaps a prolonged recording may increase the yield. Please correlate clinically.
--- NOTE | 2017-12-21 19:33 | Event Note ---
Date of Encounter: 12/21/17 Time of Encounter: 12:00 [facility] will not allow me to attest and cosign progress note of today. I examined this patient and my medical decision-making was reviewed with the Resident Physician on 12/21/17. I agree with the documented findings, disposition and treatment plan as described except to the extent set forth below. Mr Ricardo is currently admitted for acute encephalopathy. He remains moderate to high risk due to potential for worsening clinical status. Mr Ricardo is more confused today. No CP or SOB. Some fever still. WBC normal. Still on abx and steroids. Exam Alert Comfortable Mucus membranes dry Heart not tachy at this time No wheeze abd soft No rash Moves all extremities. Some confusion today I/P 1. Encephalopathy - presumed encephalitis 2. Lung cancer 3. HTN 4. Sepsis - per ID 5. COPD chronic 6. Chronic hypoxic resp failure 7. AQUILES 8. Morbid obesity Further diagnoses and plan as per progress note of today.
[2017-12-21 20:39] LABS: VBG Ionized Calcium 1.17 mmol/L (1.15-1.35)
[2017-12-22] MEDS: *HR* Heparin 5,000 UNIT/ML VIAL SQ SCH ×4 (00:24→23:58)
[2017-12-22] MEDS: Cefepime HCl 2,000 MG in Water for inj. (sterile) 20 ML 20 ML IVP SCH ×3 (00:30→16:44)
[2017-12-22] MEDS ORDERED: 0.9 % Sodium Chloride 1,000 ML IVC SCH (00:30)
[2017-12-22] MEDS: MetroNIDAZOLE 500 MG/100 ML 500 MG/100 ML BAG IVPB SCH ×3 (00:34→16:46)
[2017-12-22] MEDS: *HR* Morphine Sulfate SR (12 HR) 30 MG TABLET.ER PO SCH ×2 (00:40→12:56)
[2017-12-22] MEDS: Acyclovir 1,000 MG in D5% in Water 250 ML IVPB SCH ×3 (03:54→20:40)
[2017-12-22 04:41] LABS: Hematocrit 40.6 % (37.5-50.1); Hemoglobin 13.3 g/dL (12.9-16.9); Immature Granulocytes % 0.4 % (0-4); Lymphocytes # 0.4 K/mcL (0.6-4.6); Mean Corpuscular HGB Conc 32.8 g/dL (31.6-35.5); Mean Corpuscular Hemoglobin 30.4 pg (28.0-33.3); Mean Corpuscular Volume 92.7 fL (83.0-100.0); Monocytes # 0.3 K/mcL (0.0-1.3); Monocytes % 5.6 %; Red Blood Count 4.38 M/mcL (4.19-5.50); Red Cell Distribution Width 14.4 % (11.5-14.5)
[2017-12-22 04:44] LABS: Platelet Count 84 K/mcL (140-400)
[2017-12-22] MEDS: MethylPREDNISolone 40 MG/ML VIAL IVP SCH ×2 (06:55→18:14)
--- NOTE | 2017-12-22 07:48 | Internal Med Progress Note ---
<Juan Goldstein - Last Filed: 12/22/17 14:05> Hospitalist Progress Note - Encounter Date of Encounter: 12/22/17 Time of Encounter: 07:48 - Subjective Interval History: Patient seen and examined resting comfortably in bed eating breakfast with assistance. Patient has not been out of bed yet with physical therapy. Abdi catheter remains in place for strict I&O measurements. Patient was febrile overnight requiring Tylenol administration. Lyme disease serology pending. - Exam Vitals: Temp Pulse Resp BP Pulse Ox 97.7 F 78 17 135/79 95 12/22/17 04:53 12/22/17 04:53 12/22/17 04:53 12/22/17 04:53 12/22/17 04:53 Exam: General appearance: Present: cooperative, A&O X 2, no acute distress, obese Exam: Awake, pleasant, resting comfortably in bed - Head Head exam: Present: atraumatic, normocephalic - Eye Eye exam: Present: pupil dilated, EOMI, conjuntiva pink, sclera anicteric - ENT ENT exam: Present: mucous membranes moist - Neck Neck exam: Present: supple, trachea midline, No nuchal rigidity. Absent: lymphadenopathy - Respiratory Respiratory exam: diffuse wheezes. Absent: accessory muscle use, rales, rhonchi - Cardiovascular Cardiovascular exam: Present: RRR, +S1, +S2. Absent: diastolic murmur, gallop, rubs, systolic murmur - GI/Abdominal GI/Abdominal exam: Present: normal bowel sounds, soft, no peritoneal signs, ostomy in place. Absent: distended, tenderness - Extremities Exam Extremities exam: Present: warm, radial pulses palpable and symmetrical. Absent: calf tenderness, cyanotic, pedal edema - Neurological Exam Neurological exam: Present: CN II-XII intact, oriented X2, no focal deficits. Absent: pronater drift, facial droop, speech deficit - Psychiatric Psychiatric exam: Present: normal affect, normal mood - Skin Skin exam: Present: dry, warm, no rash - Assessment and Plan (1) Acute metabolic encephalopathy Current Visit: Yes Status: Acute Assessment and Plan: Likely viral vs immune mediated encephalopathy CT and MRI head revealed no acute intracranial abnormality LP revealed cells 167, protein 101, LP cultures shows no growth to date EEG recording was consistent with a mild to moderate generalized encephalopathy. There is no evidence of epileptiform activity identified during the study. Etiologies of this interpretation might include toxic, metabolic, postictal, degenerative. Mental status now much improved, continue to monitor, await culture results Continue Acyclovir and Cefepime per ID recommendations Solu-medrol 50mg BID per oncology recommendations Started doxycycline, Lyme disease serology pending Neurology following (2) Meningoencephalitis Current Visit: Yes Status: Acute Assessment and Plan: Status post LP 12/19/17 by interventional radiology. Pleocytosis with lymphocytic predominance noted. CSF gram stain negative, culture is no growth. HSV and VZV PCR are pending. Check cryptococcal antigen negative. Continue acyclovir 10 mg/kg IV every 8 hours per ID recommendations. Monitor renal function and dose adjust medications. ID following (3) Sepsis Current Visit: Yes Status: Resolved Assessment and Plan: Blood cultures from peripheral and port pending from 12/17/17 UA unremarkable Last lactic acid 0.8, repeat level 0.7 Cryptococcal antigen negative RIP, Flu swab negative Continue Tylenol as needed for fever ID following, continue Acyclovir, Cefepime, Flagyl 500mg Q8, doxycycline Duration of therapy depends on clinical course Monitor I & Os (4) Matok-zf-bdpuxzk kidney injury Current Visit: Yes Status: Acute Assessment and Plan: Creat baseline in last year based on available records appears to be about 1., his baseline CKD stage is unknown Creat on admit 1.53, UA neg for infection Possibly dehydrated, IVFs ordered May be related to recent nivolumab-onc following Continue to renally dose meds, gentle hydration, monitor output, avoid nephrotoxic agents (5) Adenocarcinoma of lung Current Visit: Yes Status: Chronic Assessment and Plan: Patient known to oncology, Dr. Mast Previously on Opdivo therapy, last injection 12/12/17 Oncology following (6) Ulcer of left lower extremity with fat layer exposed Current Visit: Yes Status: Acute Assessment and Plan: Pt sees [facility]/ Dr. Huang, venous ulcer being treated with collagen Wound care following (7) Opiate dependence Current Visit: Yes Status: Chronic Assessment and Plan: Patient takes MS Contin twice a day and Morphine intermediate release 30 mg by mouth every 4 hours Patient previously on morphine pump number, wean down to 15 mg twice a day to pr event withdrawal. DVT Prophylaxis: Heparin 5000u subcutaneous TID - Time Spent with Patient Total time spent is greater than 50% in coordination of care (as documented) at patient's floor/unit and/or counseling patient: Internal Medicine: Result - Labs CBC & Chem 7: 12/22/17 04:00 12/21/17 18:29 Labs: Short CBC 12/21/17 12/22/17 Range/Units 18:29 04:00 WBC 7.0 4.7 (4.3-11.1) K/mcL Hgb 12.9 13.3 (12.9-16.9) g/dL Hct 39.8 40.6 (37.5-50.1) % Plt Count 91 L 84 L (140-400) K/mcL Neutrophils # 5.9 4.0 (1.6-8.9) K/mcL BMP 12/21/17 12/21/17 08:41 18:29 Sodium 137 137 Potassium 3.7 4.0 Chloride 105 104 Carbon Dioxide 28 29 BUN 20 19 Creatinine 1.19 1.09 Glucose 116 H 116 H Calcium 8.3 L 8.0 L Liver Function 12/21/17 Range/Units 18:29 Total Bilirubin 0.5 (0.3-1.0) mg/dL AST 9 L (13-39) Units/L ALT 11 (7-52) Units/L Alkaline Phosphatase 35 (34-104) Units/L Albumin 3.1 L (3.5-5.7) g/dL - ABG Interpretation ABG results: PT/INR, D-dimer PT 13.3 Seconds (9.4-12.1) H 12/17/17 01:54 - Impressions Impressions Chest X-Ray 12/21/17 22:20 IMPRESSION: No acute interval change. Shallow inspiratory effort with stable posttreatment related changes of the right lung. D/ / Gary Marcano / Gary Marcano Interpreting Provider: Gary Marcano Consult Discharge Plan - Plan Referrals: Maxnie Delatorre, [employer] [Primary Care Provider] - <John Taveras - Last Filed: 12/22/17 17:52> Hospitalist Progress Note - Exam Vitals: Temp Pulse Resp BP Pulse Ox 97.5 F L 78 20 141/75 90 12/22/17 17:07 12/22/17 17:07 12/22/17 17:07 12/22/17 17:07 12/22/17 17:07 - Assessment and Plan (1) Adenocarcinoma of lung Current Visit: Yes Status: Chronic (2) Sepsis Current Visit: Yes Status: Resolved (3) Ulcer of left lower extremity with fat layer exposed Current Visit: Yes Status: Acute (4) Eefhw-qy-xvrvqpb kidney injury Current Visit: Yes Status: Acute (5) Acute metabolic encephalopathy Current Visit: Yes Status: Acute (6) Meningoencephalitis Current Visit: Yes Status: Acute (7) Opiate dependence Current Visit: Yes Status: Chronic (8) Chronic respiratory failure Current Visit: No Status: Chronic (9) Hypertension Current Visit: No Status: Chronic - Time Spent with Patient Total time spent is greater than 50% in coordination of care (as documented) at patient's floor/unit and/or counseling patient: Internal Medicine: Result - Labs CBC & Chem 7: 12/22/17 04:00 12/21/17 18:29 Labs: Short CBC 12/21/17 12/22/17 Range/Units 18:29 04:00 WBC 7.0 4.7 (4.3-11.1) K/mcL Hgb 12.9 13.3 (12.9-16.9) g/dL Hct 39.8 40.6 (37.5-50.1) % Plt Count 91 L 84 L (140-400) K/mcL Neutrophils # 5.9 4.0 (1.6-8.9) K/mcL BMP 12/21/17 18:29 Sodium 137 Potassium 4.0 Chloride 104 Carbon Dioxide 29 BUN 19 Creatinine 1.09 Glucose 116 H Calcium 8.0 L Liver Function 12/21/17 Range/Units 18:29 Total Bilirubin 0.5 (0.3-1.0) mg/dL AST 9 L (13-39) Units/L ALT 11 (7-52) Units/L Alkaline Phosphatase 35 (34-104) Units/L Albumin 3.1 L (3.5-5.7) g/dL - ABG Interpretation ABG results: PT/INR, D-dimer PT 13.3 Seconds (9.4-12.1) H 12/17/17 01:54 - Impressions Impressions Chest X-Ray 12/21/17 22:20 IMPRESSION: No acute interval change. Shallow inspiratory effort with stable posttreatment related changes of the right lung. D/ / Gary Marcano / Gary Marcano Interpreting Provider: Gary Marcano - Attending Attestation I examined this patient and my medical decision-making was reviewed with the Resident Physician on 12/22/17. I agree with the documented findings, disposition and treatment plan as described except to the extent set forth below. Mr Ricardo is currently admitted for acute encephalopathy with presumed encephalitis. He remains moderate to high risk due to potential for worsening clinical status. Mr Ricardo is alert and interactive. Dozes off some. Febrile again last night. No CP. Some dyspnea with movement. Exam Alert. Conversant. Comfortable Mucus membranes dry Heart reg - not tachy right now Lungs diminished Abd soft I/P 1. Encephalopathy/encephalitis - though it is low probability that Lyme is involved we sent titers today. Doxy started. Continue other treatment as is for now. 2. Lung cancer Further diagnoses and plan as above. <Juan Goldstein - Last Filed: 12/22/17 14:05> (3) Sepsis Qualifiers: Sepsis type: sepsis due to unspecified organism Qualified Code(s): A41.9 - Sepsis, unspecified organism (4) Fzzdp-pd-bplrokj kidney injury Qualifiers: Acute renal failure type: unspecified Chronic kidney disease stage: stage 2 (mild) Qualified Code(s): N17.9 - Acute kidney failure, unspecified; N18.2 - Chronic kidney disease, stage 2 (mild) (5) Adenocarcinoma of lung Qualifiers: Laterality: right Qualified Code(s): C34.91 - Malignant neoplasm of unspecified part of right bronchus or lung (7) Opiate dependence Qualifiers: Substance use status: uncomplicated Qualified Code(s): F11.20 - Opioid dependence, uncomplicated <John Taveras - Last Filed: 12/22/17 17:52> (1) Adenocarcinoma of lung Qualifiers: Laterality: right Qualified Code(s): C34.91 - Malignant neoplasm of unspecified part of right bronchus or lung (2) Sepsis Qualifiers: Sepsis type: sepsis due to unspecified organism Qualified Code(s): A41.9 - Sepsis, unspecified organism (4) Zjsux-cq-rfltmxs kidney injury Qualifiers: Acute renal failure type: unspecified Chronic kidney disease stage: stage 2 (mild) Qualified Code(s): N17.9 - Acute kidney failure, unspecified; N18.2 - Chronic kidney disease, stage 2 (mild) (7) Opiate dependence Qualifiers: Substance use status: uncomplicated Qualified Code(s): F11.20 - Opioid dependence, uncomplicated (8) Chronic respiratory failure Qualifiers: Respiratory failure complication: hypoxia Qualified Code(s): J96.11 - Chronic respiratory failure with hypoxia (9) Hypertension Qualifiers: Hypertension type: essential hypertension Qualified Code(s): I10 - Essential (primary) hypertension
[2017-12-22] MEDS: Aspirin Enteric Coated 81 MG Tablet PO SCH (08:08)
--- NOTE | 2017-12-22 08:37 | Oncology Inp Progress Note ---
Date of Encounter: 12/22/17 Time of Encounter: 08:00 Oncology: Subj Interval history: Patient denies any headaches, pain or diarrhea. He reports having temp last night. Answers qus appropriately Lung cancer, treated with no Rolanda, patient hospitalized with the mental status changes concerning for encephalitis, drug induced versus viral he is on acyclovir, broad-spectrum antibiotics. Continue on methyl prednisolone. No focal symptoms. Culture data pending. Metabolic panel, TSH, cortisol nl. - Constitutional Vitals: Vital Signs Temp Pulse Resp BP Pulse Ox 12/22/17 04:53 97.7 F 78 17 135/79 95 12/22/17 00:15 97.7 F 71 18 155/97 98 12/21/17 21:58 99.2 F 12/21/17 20:50 101.2 F H 12/21/17 19:37 103.1 F H 95 17 143/82 95 12/21/17 17:00 102.2 F H 102 21 136/81 97 12/21/17 11:05 99.1 F 82 20 134/79 91 12/21/17 10:31 22 94 12/21/17 09:51 99.0 F Intake and Output 12/21/17 12/22/17 12/22/17 23:59 07:59 15:59 Intake Total 490 / 490 120 / 120 Output Total 550 / 550 Balance 490 / 490 -430 / -430 Intake: IV Fluids 490 / 490 120 / 120 Maxipime 2,000 MG In Water for 20 / 20 20 / 20 inj. (sterile) 20 ML @ 300 mls/ hr IVP Q8HR [facility] Rx#:[id number] Ofirmev 1,000 mg/100 ml 1,000 100 / 100 mg In 100 ml @ 400 mls/hr IVPB Q6HR PRN Rx#:[id number] Zovirax 1,000 MG In Dextrose 5% 270 / 270 250 ML @ 250 mls/hr IVPB Q8H [facility] Rx#:[id number] Flagyl Premix 500 MG/100 ML 500 100 / 100 100 / 100 mg In 100 ml @ 100 mls/hr IVPB Q8HR [facility] Rx#:[id number] Output: Catheter 550 / 550 Other: Weight 132.6 kg Blood Glucose* 114 Patient Weight 12/22/17 23:59 Weight 132.6 kg General appearance: no acute distress - Head Head exam: Present: atraumatic, normal inspection - Eye Eye exam: Present: sclera anicteric - ENT ENT exam: Present: mucous membranes moist - Respiratory Respiratory exam: Present: CTAB - Cardiovascular Cardiovascular exam: Present: +S1, +S2 - GI/Abdominal GI/Abdominal exam: Present: normal bowel sounds, soft - Neurological Exam Neurological exam: Present: alert, no focal deficits Oncology: Obj Data - Labs CBC & Chem 7: 12/22/17 04:00 12/21/17 18:29 Labs: Laboratory Results - last 24 hr 12/20/17 12/21/17 12/21/17 20:11 08:41 11:12 WBC RBC Hgb Hct MCV MCH MCHC RDW Plt Count MPV Immature Gran % Seg Neutrophils % Lymphocytes % Monocytes % Eosinophils % Basophils % Neutrophils # Lymphocytes # Monocytes # Eosinophils # Basophils # Immature Plt Fraction Sodium 137 Potassium 3.7 Chloride 105 Carbon Dioxide 28 BUN 20 Creatinine 1.19 Est GFR ( Amer) > 60 Est GFR (Non-Af Amer) > 60 BUN/Creatinine Ratio 17 Glucose 116 H POC Glucose 106 H 132 H Calculated Osmolality 288 Lactic Acid Calcium 8.3 L Venous Ioniz Calcium Phosphorus Magnesium Total Bilirubin AST ALT Alkaline Phosphatase Serum Total Protein Albumin Globulin Albumin/Globulin Ratio 12/21/17 12/21/17 12/21/17 18:29 18:29 18:29 WBC 7.0 RBC 4.31 Hgb 12.9 Hct 39.8 MCV 92.3 MCH 29.9 MCHC 32.4 RDW 14.4 Plt Count 91 L MPV 11.2 Immature Gran % 0.4 Seg Neutrophils % 83.5 Lymphocytes % 8.8 Monocytes % 7.2 Eosinophils % 0.0 Basophils % 0.1 Neutrophils # 5.9 Lymphocytes # 0.6 Monocytes # 0.5 Eosinophils # 0.0 Basophils # 0.0 Immature Plt Fraction 7.1 H Sodium 137 Potassium 4.0 Chloride 104 Carbon Dioxide 29 BUN 19 Creatinine 1.09 Est GFR ( Amer) > 60 Est GFR (Non-Af Amer) > 60 BUN/Creatinine Ratio 17 Glucose 116 H POC Glucose Calculated Osmolality 287 Lactic Acid 0.8 Calcium 8.0 L Venous Ioniz Calcium Phosphorus 2.0 L Magnesium 1.6 Total Bilirubin 0.5 AST 9 L ALT 11 Alkaline Phosphatase 35 Serum Total Protein 5.5 L Albumin 3.1 L Globulin 2.4 Albumin/Globulin Ratio 1.3 12/21/17 12/22/17 12/22/17 20:37 04:00 04:00 WBC 4.7 RBC 4.38 Hgb 13.3 Hct 40.6 MCV 92.7 MCH 30.4 MCHC 32.8 RDW 14.4 Plt Count 84 L MPV 11.0 Immature Gran % 0.4 Seg Neutrophils % 85.0 Lymphocytes % 9.0 Monocytes % 5.6 Eosinophils % 0.0 Basophils % 0.0 Neutrophils # 4.0 Lymphocytes # 0.4 L Monocytes # 0.3 Eosinophils # 0.0 Basophils # 0.0 Immature Plt Fraction Sodium Potassium Chloride Carbon Dioxide BUN Creatinine Est GFR ( Amer) Est GFR (Non-Af Amer) BUN/Creatinine Ratio Glucose POC Glucose Calculated Osmolality Lactic Acid 0.7 Calcium Venous Ioniz Calcium 1.17 Phosphorus Magnesium Total Bilirubin AST ALT Alkaline Phosphatase Serum Total Protein Albumin Globulin Albumin/Globulin Ratio - Impressions Impressions Chest X-Ray 12/21/17 22:20 IMPRESSION: No acute interval change. Shallow inspiratory effort with stable posttreatment related changes of the right lung. D/ / Gary Marcano / Gary Marcano Interpreting Provider: Gary Marcano - ABG Interpretation ABG results: PT/INR, D-dimer PT 13.3 Seconds (9.4-12.1) H 12/17/17 01:54 Consult Discharge Plan - Plan Referrals: Maxine Delatorre MANAGER SUPPLY [Primary Care Provider] - Inpatient Charges Follow up - Inpatient: [id number]
[2017-12-22] MEDS: Ipratropium/Albuterol Neb 3 ML IH SCH ×3 (09:46→22:23)
[2017-12-22] MEDS: Doxycycline 100 MG in 0.9 % Sodium Chloride Mini Bag 100 ML IVPB SCH ×2 (12:14→18:15)
--- NOTE | 2017-12-22 15:45 | Neurology Progress Note ---
Date of Encounter: 12/22/17 Time of Encounter: 15:43 Assessment and Plan (1) Acute encephalopathy Current Visit: Yes Status: Acute Patient today shows mild improvement in mental status in comparison to yesterday. However today he has involuntary movements that appeared to be myoclonic associated with movement. She no evidence to suggest renal disease or hepatic disease. HSV titer is still pending. It seems likely that we are dealing with some autoimmune or infectious agent. Continue acyclovir for 10 full days of therapy. (2) Acute metabolic encephalopathy Current Visit: Yes Status: Acute Subjective Principal diagnosis: Meningitis/encephalitis Interval history: The chart was reviewed, the patient was seen and examined independently. The patient is currently on autoimmune therapy for treatment of small cell lung cancer. He had presented with complaints of headaches some nuchal stiffness as well as confusion. Lumbar puncture did reveal elevated nucleated cells with a lymphocytic preponderance. The bulk of the viral cultures have returned negative. HSV remains outstanding. Clinically patient was sleeping upon my entering the room, was easily aroused to voice. He is oriented 3. He does however complain of chills and general malaise. He denies headache currently. I did repeat his EEG moments ago. He does have sinus tachycardia at 104 bpm. The EEG was slow and disorganized consistent with a mild to moderate generalized encephalopathy. I did not however identify epileptiform activity. I did review the MRI scan of the brain personally and it was negative for any evidence of acute process. Objective - Constitutional Vitals: Temp Pulse Resp BP Pulse Ox 97.3 F L 65 20 167/99 97 12/22/17 12:24 12/22/17 12:24 12/22/17 12:24 12/22/17 12:24 12/22/17 12:24 - Neurological Exam Sensorimotor examination: Present: intact Motor Examination: Present: grossly full strength in all extremities, full strength in all major muscle groups Motor examination - right side: 5/5: deltoids, biceps, triceps, senior technical architect, hip flexors, tibialis Anterior, quadriceps, toe extension (EHL), plantarflexion Motor examination - left side: 5/5: deltoids, biceps, triceps, wrist flexion, wrist extension, hip flexors, senior technical architect, quadriceps, tibialis Anterior, toe extension (EHL), plantarflexion Sensation intact: Present: intact Posture: Present: other (Patient today has cloniform movements particularly with intentional movements.) Reflex and gait examination: other Mental Status Examination: Present: awake, alert, oriented to person, oriented to place, follows commands appropriately, opens eyes to voice, not reliable historian Cranial nerve examination: Present: PERRL, EOMI, sensory to face intact, no facial asymmetry is present, no dysarthria, hearing is intact symmetrically, soft palate elevates bilaterally upon phonation, flexes SCM and trapezius muscles symmetrically with full power, tongue protrudes midline, no atrophy or facial fasiculations present Cerebellar examination: Present: no dysmetria Results - Laboratory Findings CBC and BMP: 12/22/17 04:00 12/21/17 18:29 Abnormal lab findings: Abnormal lab results Plt Count 84 K/mcL (140-400) L 12/22/17 04:00 Lymphocytes # 0.4 K/mcL (0.6-4.6) L 12/22/17 04:00 Immature Plt Fraction 7.1 % (1.1-6.1) H 12/21/17 18:29 PT 13.3 Seconds (9.4-12.1) H 12/17/17 01:54 Glucose 116 mg/dL (70-105) H 12/21/17 18:29 POC Glucose 105 mg/dL (70-99) H 12/22/17 08:46 Calcium 8.0 mg/dL (8.6-10.3) L 12/21/17 18:29 Phosphorus 2.0 mg/dL (2.7-4.5) L 12/21/17 18: AST 9 Units/L (13-39) L 12/21/17 18: Troponin I 0.06 ng/mL (< 0.04) H* 12/17/17 12:41 Serum Total Protein 5.5 g/dL (6.4-8.9) L 12/21/17 18:29 Albumin 3.1 g/dL (3.5-5.7) L 12/21/17 18:29 HDL Cholesterol 27 mg/dL (40-59) L 12/18/17 04:25 Cholesterol/HDL Ratio 5.6 (0-4.9) H 12/18/17 04:25 Total Testosterone 107 ng/dL (280-1100) L 12/18/17 04:25 Ur Specific [place] 1.030 (1.010-1.025) H 12/17/17 05:38 CSF Tot Nucleated Cells 167 TNC/mcL (0-5) H* 12/19/17 13:01 CSF Total Protein 104 mg/dL (15-45) H 12/19/17 13:01 Vancomycin Trough 20 mcg/mL (5-10) H 12/21/17 01:07 Consult Discharge Plan - Plan Referrals: Maxine Delatorre, BONE PULLER [Primary Care Provider] -
[2017-12-22] MEDS: *HR* Morphine Sulfate SR (12 HR) 15 MG TABLET.ER PO SCH (15:48)
[2017-12-22 16:40] LABS: HSV Source CSF
[2017-12-22] MEDS ORDERED: *HR* Morphine Sulfate SR (12 HR) 15 MG TABLET.ER PO PRN (17:55)
[2017-12-22] MEDS ORDERED: *HR* OxyCODONE/APAP 5/325 TABLET PO PRN (18:20)
--- NOTE | 2017-12-22 22:04 | Electrocardiograph Report ---
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
[2017-12-22] MEDS ORDERED: Water for inj. (sterile) 20 ML 20 ML IV ONE (23:44)
[2017-12-23] MEDS: MetroNIDAZOLE 500 MG/100 ML 500 MG/100 ML BAG IVPB SCH ×3 (00:03→15:42)
[2017-12-23] MEDS: *HR* Morphine Sulfate SR (12 HR) 15 MG TABLET.ER PO SCH ×2 (04:15→15:42)
[2017-12-23] MEDS: Acyclovir 1,000 MG in D5% in Water 250 ML IVPB SCH ×3 (04:17→20:34)
[2017-12-23] MEDS: MethylPREDNISolone 40 MG/ML VIAL IVP SCH ×2 (05:58→17:55)
[2017-12-23] MEDS: Doxycycline 100 MG in 0.9 % Sodium Chloride Mini Bag 100 ML IVPB SCH ×2 (05:59→17:56)
[2017-12-23 06:21] LABS: Monocytes % 5.9 %
[2017-12-23 06:23] LABS: Immature Granulocytes % 0.8 % (0-4); Immature Platelets 8.3 % (1.1-6.1); Lymphocytes # 0.4 K/mcL (0.6-4.6); Lymphocytes % 8.5 %; Mean Corpuscular HGB Conc 33.3 g/dL (31.6-35.5); Mean Corpuscular Volume 90.1 fL (83.0-100.0); Mean Platelet Volume 11.7 fL (9.4-12.4); Monocytes # 0.3 K/mcL (0.0-1.3); Neutrophils # 4.3 K/mcL (1.6-8.9); Red Blood Count 4.33 M/mcL (4.19-5.50); Red Cell Distribution Width 14.1 % (11.5-14.5); Segmented Neutrophils % 84.8 %
[2017-12-23 06:27] LABS: Platelet Count 81 K/mcL (140-400)
[2017-12-23 06:33] LABS: BUN/Creatinine Ratio 21 (6-26); Blood Urea Nitrogen 16 mg/dL (8-23); Calcium 8.6 mg/dL (8.6-10.3); Carbon Dioxide 28 mEq/L (23-29); Chloride 105 mEq/L (98-107); Glucose 149 mg/dL (70-105); Osmolality,Calculated 292 (280-300); Potassium 3.4 mEq/L (3.5-5.1); Sodium 139 mEq/L (136-145); eGFR For Non-African Americans > 60 (> 60)
--- NOTE | 2017-12-23 08:16 | Internal Med Progress Note ---
<John Taveras - Last Filed: 12/23/17 14:03> Hospitalist Progress Note - Exam Vitals: Temp Pulse Resp BP Pulse Ox 97.9 F 67 20 133/81 96 12/23/17 11:46 12/23/17 11:46 12/23/17 11:46 12/23/17 11:46 12/23/17 11:46 - Assessment and Plan (1) Hypertension Current Visit: No Status: Chronic (2) Adenocarcinoma of lung Current Visit: Yes Status: Chronic (3) Chronic respiratory failure Current Visit: No Status: Chronic (4) Sepsis Current Visit: Yes Status: Resolved (5) Ulcer of left lower extremity with fat layer exposed Current Visit: Yes Status: Acute (6) Vvjar-dz-tveaylr kidney injury Current Visit: Yes Status: Acute (7) Acute metabolic encephalopathy Current Visit: Yes Status: Acute (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 (9) Opiate dependence Current Visit: Yes Status: Chronic (10) Hypokalemia Current Visit: Yes Status: Acute - Time Spent with Patient Total time spent is greater than 50% in coordination of care (as documented) at patient's floor/unit and/or counseling patient: Internal Medicine: Result - Labs CBC & Chem 7: 12/23/17 06:00 12/23/17 06:00 Labs: Short CBC 12/23/17 Range/Units 06:00 WBC 5.1 (4.3-11.1) K/mcL Hgb 13.0 (12.9-16.9) g/dL Hct 39.0 (37.5-50.1) % Plt Count 81 L (140-400) K/mcL Neutrophils # 4.3 (1.6-8.9) K/mcL BMP 12/23/17 06:00 Sodium 139 Potassium 3.4 L Chloride 105 Carbon Dioxide 28 BUN 16 Creatinine 0.75 Glucose 149 H Calcium 8.6 - ABG Interpretation ABG results: PT/INR, D-dimer PT 13.3 Seconds (9.4-12.1) H 12/17/17 01:54 Consult Discharge Plan - Plan Referrals: Maxine Delatorre, CUTTING MACHINE TENDER DECORATIVE [Primary Care Provider] - - Attending Attestation I examined this patient and my medical decision-making was reviewed with the Resident Physician on 12/23/17. I agree with the documented findings, disposition and treatment plan as described except to the extent set forth below. Mr Ricardo is currently admitted for encephalopathy/encephalitis. He remains moderate to high risk due to potential for worsening clinical status. Mr Ricardo is markedly better today. He is sitting on side of bed and completely oriented. He is eating today. Has some residual myoclonic jerks but much better. No fever overnight. Daughter at bedside. Ambulated to bathroom today. Exam alert Comfortable Mucus membranes dry Heart not tachy No wheeze abd soft Some myoclonus noted but much improved I/P 1. Encephalopathy/encephalitis -? etiology. HSV negative Doxycycline added yesterday. 2. Lung cancer Continue current plan of care. Further diagnoses and plan as above. <Juan Goldstein - Last Filed: 12/23/17 15:11> Hospitalist Progress Note - Encounter Date of Encounter: 12/23/17 Time of Encounter: 09:30 - Subjective Interval History: Patient seen and examined resting comfortably sitting up at side of bed. Patient has not been out of bed yet with physical therapy. Abdi catheter remains in place for strict I&O measurements. Patient was afebrile overnight and reports feeling overall improved today. Patient is tolerating doxycycline. Lyme disease serology from blood and CSF samples pending. Family is at bedside - Exam Vitals: Temp Pulse Resp BP Pulse Ox 97.7 F 62 20 173/81 100 12/23/17 07:30 12/23/17 07:30 12/23/17 07:30 12/23/17 07:30 12/23/17 07:30 Exam: General appearance: Present: cooperative, A&O X 3, no acute distress, obese, awake, pleasant - Head Head exam: Present: atraumatic, normocephalic - Eye Eye exam: Present: pupil dilated, EOMI, conjuntiva pink, sclera anicteric - ENT ENT exam: Present: mucous membranes moist - Neck Neck exam: Present: supple, trachea midline, No nuchal rigidity. Absent: lymphadenopathy - Respiratory Respiratory exam: Decreased breath sounds bilaterally, mild expiratory wheezes. Absent: accessory muscle use, rales, rhonchi - Cardiovascular Cardiovascular exam: Present: RRR, +S1, +S2. Absent: diastolic murmur, gallop, rubs, systolic murmur - GI/Abdominal GI/Abdominal exam: Present: normal bowel sounds, soft, no peritoneal signs, ostomy in place. Absent: distended, tenderness - Extremities Exam Extremities exam: Present: warm, radial pulses palpable and symmetrical. Absent: calf tenderness, cyanotic, pedal edema - Neurological Exam Neurological exam: Present: CN II-XII intact, oriented X3, no focal deficits. Absent: facial droop, speech deficit - Psychiatric Psychiatric exam: Present: normal affect, normal mood - Skin Skin exam: Present: dry, warm, no rash - Assessment and Plan (1) Acute metabolic encephalopathy Current Visit: Yes Status: Acute Assessment and Plan: Likely viral vs immune mediated encephalopathy CT and MRI head revealed no acute intracranial abnormality LP revealed cells 167, protein 101, LP cultures shows no growth to date EEG recording was consistent with a mild to moderate generalized encephalopathy. There is no evidence of epileptiform activity identified during the study. Etiologies of this interpretation might include toxic, metabolic, postictal, degenerative. Solu-medrol 50mg BID per oncology recommendations Continue Acyclovir, Flagyl, Cefepime Started doxycycline 12/22/17, Lyme disease serology from blood and CSF samples pending. 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 Pleocytosis with lymphocytic predominance noted. CSF gram stain negative, culture is no growth. HSV and VZV PCR are pending. Check cryptococcal antigen negative. Continue acyclovir 10 mg/kg IV every 8 hours per ID recommendations. Monitor renal function and dose adjust medications. ID and neurology following (3) Adenocarcinoma of lung Current Visit: Yes Status: Chronic Assessment and Plan: Patient known to oncology, Dr. Mast Previously on Opdivo therapy, last injection 12/12/17 Oncology following (4) Chronic respiratory failure Current Visit: No Status: Chronic (5) Sepsis Current Visit: Yes Status: Resolved Assessment and Plan: Blood cultures from peripheral and port pending from 12/17/17 UA unremarkable Last lactic acid 0.8, repeat level 0.7 Cryptococcal antigen negative RIP, Flu swab negative Continue Tylenol as needed for fever ID following, continue Acyclovir, Cefepime, Flagyl, Doxycycline, De-escalate antibiotics when able Duration of therapy depends on clinical course Monitor I & Os (6) Hypertension Current Visit: No Status: Chronic Assessment and Plan: Patient has been hypertensive Resume home Lasix Start metoprolol Continue monitoring (7) Ulcer of left lower extremity with fat layer exposed Current Visit: Yes Status: Acute Assessment and Plan: Pt sees [facility]/ Dr. Huang, venous ulcer being treated with collagen Wound care following (8) Kndud-nn-wdwuchx kidney injury Current Visit: Yes Status: Acute Assessment and Plan: Creat baseline in last year based on available records appears to be about 1., his baseline CKD stage is unknown Creat on admit 1.53, UA neg for infection Possibly dehydrated, IVFs given May be related to recent nivolumab, oncology following Continue to renally dose meds, gentle hydration, monitor output, avoid nephr otoxic agents Resumed home dose Lasix 20 mg by mouth daily (9) Opiate dependence Current Visit: Yes Status: Chronic Assessment and Plan: Patient takes MS Contin twice a day and Morphine intermediate release 30 mg by mouth every 4 hours Patient previously on morphine pump number, wean down to 15 mg scheduled BIDto prevent withdrawal. Continue oxycodone when necessary for breakthrough pain (10) Hypokalemia Current Visit: Yes Status: Acute Assessment and Plan: Supplemented potassium Magnesium level within normal limits Continue monitoring DVT Prophylaxis: Heparin subcutaneous TID - Time Spent with Patient Total time spent is greater than 50% in coordination of care (as documented) at patient's floor/unit and/or counseling patient: Internal Medicine: Result - Labs CBC & Chem 7: 12/23/17 06:00 12/23/17 06:00 Labs: Short CBC 12/23/17 Range/Units 06:00 WBC 5.1 (4.3-11.1) K/mcL Hgb 13.0 (12.9-16.9) g/dL Hct 39.0 (37.5-50.1) % Plt Count 81 L (140-400) K/mcL Neutrophils # 4.3 (1.6-8.9) K/mcL BMP 12/23/17 06:00 Sodium 139 Potassium 3.4 L Chloride 105 Carbon Dioxide 28 BUN 16 Creatinine 0.75 Glucose 149 H Calcium 8.6 - ABG Interpretation ABG results: PT/INR, D-dimer PT 13.3 Seconds (9.4-12.1) H 12/17/17 01:54 <John Taveras - Last Filed: 12/23/17 14:03> (1) Hypertension Qualifiers: Hypertension type: essential hypertension Qualified Code(s): I10 - Essential (primary) hypertension (2) Adenocarcinoma of lung Qualifiers: Laterality: right Qualified Code(s): C34.91 - Malignant neoplasm of unspecified part of right bronchus or lung (3) Chronic respiratory failure Qualifiers: Respiratory failure complication: hypoxia Qualified Code(s): J96.11 - Chronic respiratory failure with hypoxia (4) Sepsis Qualifiers: Sepsis type: sepsis due to unspecified organism Qualified Code(s): A41.9 - Sepsis, unspecified organism (6) Kviin-yx-cdgsoxd kidney injury Qualifiers: Acute renal failure type: unspecified Chronic kidney disease stage: stage 2 (mild) Qualified Code(s): N17.9 - Acute kidney failure, unspecified; N18.2 - Chronic kidney disease, stage 2 (mild) (9) Opiate dependence Qualifiers: Substance use status: uncomplicated Qualified Code(s): F11.20 - Opioid dependence, uncomplicated <ShJuan kennedy - Last Filed: 12/23/17 15:11> (3) Adenocarcinoma of lung Qualifiers: Laterality: right Qualified Code(s): C34.91 - Malignant neoplasm of unspecified part of right bronchus or lung (4) Chronic respiratory failure Qualifiers: Respiratory failure complication: hypoxia Qualified Code(s): J96.11 - Chronic respiratory failure with hypoxia (5) Sepsis Qualifiers: Sepsis type: sepsis due to unspecified organism Qualified Code(s): A41.9 - Sepsis, unspecified organism (6) Hypertension Qualifiers: Hypertension type: essential hypertension Qualified Code(s): I10 - Essential (primary) hypertension (8) Kkgee-jh-tpnkrjt kidney injury Qualifiers: Acute renal failure type: unspecified Chronic kidney disease stage: stage 2 (mild) Qualified Code(s): N17.9 - Acute kidney failure, unspecified; N18.2 - Chronic kidney disease, stage 2 (mild) (9) Opiate dependence Qualifiers: Substance use status: uncomplicated Qualified Code(s): F11.20 - Opioid dependence, uncomplicated
[2017-12-23] MEDS: Cefepime HCl 2,000 MG in Water for inj. (sterile) 20 ML 20 ML IVP SCH ×3 (08:50→15:42)
[2017-12-23] MEDS: Aspirin Enteric Coated 81 MG Tablet PO SCH (08:50)
[2017-12-23] MEDS: *HR* Heparin 5,000 UNIT/ML VIAL SQ SCH ×2 (08:50→15:42)
[2017-12-23] MEDS ORDERED: Furosemide 20 MG TABLET PO PRN (09:04)
[2017-12-23 09:29] LABS: Magnesium 1.7 mg/dL (1.6-2.6)
[2017-12-23] MEDS: Potassium Chloride Elixir 20 MEQ/15 ML UDC PO ONE ×2 (10:13→11:09)
[2017-12-23] MEDS: Ipratropium/Albuterol Neb 3 ML IH SCH ×3 (10:54→22:21)
[2017-12-24] MEDS: Cefepime HCl 2,000 MG in Water for inj. (sterile) 20 ML 20 ML IVP SCH ×2 (01:27→09:25)
[2017-12-24] MEDS: *HR* Heparin 5,000 UNIT/ML VIAL SQ SCH ×3 (01:29→17:10)
[2017-12-24] MEDS: MetroNIDAZOLE 500 MG/100 ML 500 MG/100 ML BAG IVPB SCH ×2 (01:29→09:24)
[2017-12-24] MEDS: *HR* Morphine Sulfate SR (12 HR) 15 MG TABLET.ER PO SCH ×2 (04:04→19:31)
[2017-12-24] MEDS: Acyclovir 1,000 MG in D5% in Water 250 ML IVPB SCH ×2 (04:04→12:16)
[2017-12-24 04:23] LABS: Hematocrit 40.4 % (37.5-50.1); Hemoglobin 13.6 g/dL (12.9-16.9); Mean Corpuscular HGB Conc 33.7 g/dL (31.6-35.5); Mean Corpuscular Hemoglobin 30.2 pg (28.0-33.3); Mean Corpuscular Volume 89.6 fL (83.0-100.0); Mean Platelet Volume 11.3 fL (9.4-12.4); Platelet Count 107 K/mcL (140-400); Red Blood Count 4.51 M/mcL (4.19-5.50); Red Cell Distribution Width 14.6 % (11.5-14.5)
[2017-12-24 04:40] LABS: Alanine Aminotransferase 13 Units/L (7-52); Albumin 3.2 g/dL (3.5-5.7); Albumin/Globulin Ratio 1.4 (1.1-2.2); Alkaline Phosphatase 32 Units/L (34-104); Aspartate Amino Transferase 11 Units/L (13-39); BUN/Creatinine Ratio 20 (6-26); Bilirubin,Total 0.7 mg/dL (0.3-1.0); Blood Urea Nitrogen 16 mg/dL (8-23); Calcium 8.8 mg/dL (8.6-10.3); Carbon Dioxide 29 mEq/L (23-29); Chloride 106 mEq/L (98-107); Globulin 2.3 g/dL (2.4-3.5); Glucose 112 mg/dL (70-105); Osmolality,Calculated 294 (280-300); Potassium 3.8 mEq/L (3.5-5.1); Sodium 141 mEq/L (136-145); Total Protein 5.5 g/dL (6.4-8.9); eGFR For Non-African Americans > 60 (> 60)
[2017-12-24] MEDS: MethylPREDNISolone 40 MG/ML VIAL IVP SCH ×2 (06:30→17:11)
[2017-12-24] MEDS: Doxycycline 100 MG in 0.9 % Sodium Chloride Mini Bag 100 ML IVPB SCH (06:31)
--- NOTE | 2017-12-24 07:41 | Neurology Progress Note ---
Date of Encounter: 12/24/17 Time of Encounter: 07:38 Assessment and Plan (1) Acute metabolic encephalopathy Current Visit: Yes Status: Acute Since admission patient's mental status has slowly improved. Also, he is no longer febrile. His lab profile has remained fairly stable. EEG revealed no evidence of seizure activity. I would like to repeat an MRI to assess for evidence of an acute encephalitis. Otherwise I would recommend starting Klonopin 0.5 mg twice a day which may help with the myoclonic jerks. We will follow. Subjective Principal diagnosis: Meningitis/encephalitis Interval history: The chart was reviewed, the patient was seen and examined. Patient was receiving nursing care at the time I entered the room. He is alert and oriented to person place. He follows most commands however seems to be a bit apraxic with others. He still has some myoclonic jerks with intentional movements. However the VZV and HSV titers have come back negative. Today is day 6 of a cyclovir therapy. Clinically he is improved compared to his admission status however. He is no longer febrile. EEG was negative for seizure activity. 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 I would like to repeat the MRI scan of the brain to rule out any other evidence of encephalitis. Objective - Constitutional Vitals: Temp Pulse Resp BP Pulse Ox 98.0 F 59 16 158/83 96 12/24/17 06:47 12/24/17 06:47 12/24/17 06:47 12/24/17 06:47 12/24/17 06:47 - Neurological Exam Sensorimotor examination: Present: intact Motor Examination: Present: grossly full strength in all extremities, other (Myoclonic jerks are still present with intentional activity.) Sensation intact: Present: intact Posture: Present: other (Patient today has myoclonic movements particularly with intentional movements.) Reflex and gait examination: other Mental Status Examination: Present: awake, alert, oriented to person, oriented to place, follows commands appropriately, opens eyes to voice, not reliable historian Cranial nerve examination: Present: PERRL, EOMI, sensory to face intact, no facial asymmetry is present, no dysarthria, hearing is intact symmetrically, soft palate elevates bilaterally upon phonation, flexes SCM and trapezius muscles symmetrically with full power, tongue protrudes midline, no atrophy or facial fasiculations present Cerebellar examination: Present: no dysmetria Results - Laboratory Findings CBC and BMP: 10/29/18 04:08 12/24/17 04:08 Abnormal lab findings: Abnormal lab results RDW 14.6 % (11.5-14.5) H 12/24/17 04:08 Plt Count 107 K/mcL (140-400) L 12/24/17 04:08 Lymphocytes # 0.4 K/mcL (0.6-4.6) L 12/23/17 06:00 Immature Plt Fraction 8.3 % (1.1-6.1) H 12/23/17 06:00 PT 13.3 Seconds (9.4-12.1) H 12/17/17 01:54 Glucose 112 mg/dL (70-105) H 12/24/17 04:08 POC Glucose 105 mg/dL (70-99) H 12/23/17 17:10 Phosphorus 2.0 mg/dL (2.7-4.5) L 12/21/17 18:29 AST 11 Units/L (13-39) L 12/24/17 04:08 Alkaline Phosphatase 32 Units/L (34-104) L 12/24/17 04:08 Troponin I 0.06 ng/mL (< 0.04) H* 12/17/17 12:41 Serum Total Protein 5.5 g/dL (6.4-8.9) L 12/24/17 04:08 Albumin 3.2 g/dL (3.5-5.7) L 12/24/17 04:08 Globulin 2.3 g/dL (2.4-3.5) L 12/24/17 04:08 HDL Cholesterol 27 mg/dL (40-59) L 12/18/17 04:25 Cholesterol/HDL Ratio 5.6 (0-4.9) H 12/18/17 04:25 Total Testosterone 107 ng/dL (280-1100) L 12/18/17 04:25 Ur Specific [place] 1.030 (1.010-1.025) H 12/17/17 05:38 CSF Tot Nucleated Cells 167 TNC/mcL (0-5) H* 12/19/17 13:01 CSF Total Protein 104 mg/dL (15-45) H 12/19/17 13:01 Vancomycin Trough 20 mcg/mL (5-10) H 12/21/17 01:07 Consult Discharge Plan - Plan Referrals: Maxine Delatorre, IGNITER ASSEMBLER [Primary Care Provider] -
--- NOTE | 2017-12-24 09:05 | Internal Med Progress Note ---
<John Taveras - Last Filed: 12/24/17 12:51> Hospitalist Progress Note - Exam Vitals: Temp Pulse Resp BP Pulse Ox 98.4 F 51 16 135/79 96 12/24/17 11:02 12/24/17 11:02 12/24/17 11:02 12/24/17 11:02 12/24/17 11:02 - Assessment and Plan (1) Hypertension Current Visit: No Status: Chronic (2) Adenocarcinoma of lung Current Visit: Yes Status: Chronic (3) Chronic respiratory failure Current Visit: No Status: Chronic (4) Sepsis Current Visit: Yes Status: Resolved (5) Ulcer of left lower extremity with fat layer exposed Current Visit: Yes Status: Acute (6) Lognr-vh-cjrqqeb kidney injury Current Visit: Yes Status: Acute (7) Acute metabolic encephalopathy Current Visit: Yes Status: Acute (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 (11) AQUILES on CPAP Current Visit: No Status: Chronic (12) Myoclonus Current Visit: Yes Status: Acute (13) Dysgeusia Current Visit: Yes Status: Acute - Time Spent with Patient Total time spent is greater than 50% in coordination of care (as documented) at patient's floor/unit and/or counseling patient: Internal Medicine: Result - Labs CBC & Chem 7: 12/24/17 04:08 12/24/17 04:08 Labs: Short CBC 12/24/17 Range/Units 04:08 WBC 7.3 (4.3-11.1) K/mcL Hgb 13.6 (12.9-16.9) g/dL Hct 40.4 (37.5-50.1) % Plt Count 107 L (140-400) K/mcL BMP 12/24/17 04:08 Sodium 141 Potassium 3.8 Chloride 106 Carbon Dioxide 29 BUN 16 Creatinine 0.82 Glucose 112 H Calcium 8.8 Liver Function 12/24/17 Range/Units 04:08 Total Bilirubin 0.7 (0.3-1.0) mg/dL AST 11 L (13-39) Units/L ALT 13 (7-52) Units/L Alkaline Phosphatase 32 L (34-104) Units/L Albumin 3.2 L (3.5-5.7) g/dL - ABG Interpretation ABG results: PT/INR, D-dimer PT 13.3 Seconds (9.4-12.1) H 12/17/17 01:54 - Impressions Impressions Brain MRI 12/24/17 07:52 IMPRESSION: Mild cerebral atrophy. No acute brain parenchymal abnormality. D/ / 12/24/2017 10:46:39 Shani Hong MD / Nkechi Brownlee Interpreting Provider: Shani Hong MD Consult Discharge Plan - Plan Referrals: Maxine Delatorre [employer] [facility] [Primary Care Provider] - - Attending Attestation I examined this patient and my medical decision-making was reviewed with the Resident Physician on 12/24/17. I agree with the documented findings, disposition and treatment plan as described except to the extent set forth belo w. Mr Ricardo is currently admitted for acute encephalopathy/encephalitis. He remains moderate to high risk due to potential for worsening clinical status. Mr Rciardo is up in chair. He is still having some stuttering speech and myoclonus. He is alert and oriented. No further fever. No CP. Abdi to come out today. Not eating well due to taste issue. Exam alert and oriented. Comfortable Mucus membrane dry Heart reg Lungs clear at this time Abd soft Some stuttering of speech and myoclonic jerks 1. Encephalitis - improving. Still with some stuttering and myoclonus. MRI no change. 2. Dysgeusia - ? due to Flagyl Further diagnoses and plan as above. <Jazz Flores - Last Filed: 12/24/17 15:00> Hospitalist Progress Note - Encounter Date of Encounter: 12/24/17 Time of Encounter: 09:16 - Subjective Interval History: 67M PMH Metastatic primary lung Ca presented with LH/Dizziness admitted with 3 sepsis criteria. Pt has had a waxing and waning mental status which was initially thought to be infectious v immune mediated encephalitis. RP, Flu cryptococcal, lyme negative. BC from 12/17 showed no growth, repeat BC from 12/21 pending. CSF culture showed elevated WBC and protein consistent with immune mediated process. Pt currently on doxycycline 100mg BID, all other antibiotics de-escalated by ID. Pt denying any problems at this time, ROS was negative. No acute events overnight. Nursing notes that he seems to be improving. - Exam Vitals: Temp Pulse Resp BP Pulse Ox 98.0 F 59 16 158/83 96 12/24/17 06:47 12/24/17 06:47 12/24/17 06:47 12/24/17 06:47 12/24/17 06:47 Exam: Gen: Awake, A&O x 3. Mental status improved from Sunday, but pt still struggles with word-finding difficulty and sometimes questions must be asked more than once. ENT: mucous membranes moist Cardio: RRR no m/r/g Pulm: CTAB no wheezes/rales/ronchi appreciated today Abd: Normoactive bowel sounds, does not complain of pain on palpation Extremities: Leg ulcer behind left knee, scabbed abrasions healing on left posterior tibialis area, and on dorsal aspect of left foot. Right extremity unremarkable. Skin: Warm, dry, intact Neuro: Can follow some commands, but unable to fully assess due to inability to follow all commands - Assessment and Plan (1) Encephalopathy Current Visit: Yes Status: Acute Assessment and Plan: Likely viral vs immune mediated encephalopathy CT and MRI head revealed no acute intracranial abnormality, repeat brain MRI from 12/24/17 showed mild cerebral atrophy with no acute brain parenchymal abnormality. LP revealed cells 167, protein 101, LP cultures shows no growth to date EEG recording was consistent with a mild to moderate generalized encephalopathy. There is no evidence of epileptiform activity identified during the study. Etiologies of this interpretation might include toxic, metabolic, postictal, degenerative. Solu-medrol 50mg BID per oncology recommendations Continue Acyclovir, Flagyl, Cefepime Started doxycycline 12/22/17, Lyme disease serology from blood and CSF samples pending. Mental status now much improved, continue to monitor, await culture results ID and Neurology following (2) CHF (congestive heart failure) Current Visit: No Status: Chronic Assessment and Plan: Chronic in nature continue to monitor (3) Adenocarcinoma of lung Current Visit: Yes Status: Chronic Assessment and Plan: Followed by oncology (4) Sepsis Current Visit: Yes Status: Resolved Assessment and Plan: Blood cultures from peripheral and port pending from 12/17/17 UA unremarkable Last lactic acid 0.8, repeat level 0.7 Cryptococcal antigen negative RIP, Flu swab negative Continue Tylenol as needed for fever ID following, continue Acyclovir, Cefepime, Flagyl, Doxycycline, De-escalate ant ibiotics when able Duration of therapy depends on clinical course Monitor I & Os (5) Ulcer of left lower extremity with fat layer exposed Current Visit: Yes Status: Acute Assessment and Plan: Followed by wound care while in the hospital (6) Fever Current Visit: Yes Status: Resolved Assessment and Plan: Pt has been normothermic since 12/21 continue to monitor (7) Afaoa-dz-bdwvbov kidney injury Current Visit: Yes Status: Acute Assessment and Plan: Creat baseline in last year based on available records appears to be about 1., his baseline CKD stage is unknown Creat on admit 1.53, UA neg for infection Possibly dehydrated, IVFs given May be related to recent nivolumab, oncology following Continue to renally dose meds, gentle hydration, monitor output, avoid nephrotoxic agents Resumed home dose Lasix 20 mg by mouth daily (8) Lightheaded Current Visit: Yes Status: Resolved Assessment and Plan: resolved (9) DVT prophylaxis Current Visit: No Status: Acute Assessment and Plan: heparin SQ TID (10) Myoclonic jerking Current Visit: Yes Status: Acute Assessment and Plan: Neuro following, recommends starting Klonopin 0.5mg BID (11) Opiate dependence Current Visit: Yes Status: Chronic Assessment and Plan: Patient takes MS Contin twice a day and Morphine intermediate release 30 mg by mouth every 4 hours Patient previously on morphine pump number, wean down to 15 mg scheduled BIDto prevent withdrawal. Continue oxycodone when necessary for breakthrough pain DVT Prophylaxis: Heparin subcutaneous TID - Time Spent with Patient Total time spent is greater than 50% in coordination of care (as documented) at patient's floor/unit and/or counseling patient: less than 15 minutes Plan of Care Discussed with: patient Internal Medicine: Result - Labs CBC & Chem 7: 12/24/17 04:08 12/24/17 04:08 Labs: Short CBC 12/24/17 Range/Units 04:08 WBC 7.3 (4.3-11.1) K/mcL Hgb 13.6 (12.9-16.9) g/dL Hct 40.4 (37.5-50.1) % Plt Count 107 L (140-400) K/mcL BMP 12/23/17 12/24/17 06:00 04:08 Sodium 139 141 Potassium 3.4 L 3.8 Chloride 105 106 Carbon Dioxide 28 29 BUN 16 16 Creatinine 0.75 0.82 Glucose 149 H 112 H Calcium 8.6 8.8 Liver Function 12/24/17 Range/Units 04:08 Total Bilirubin 0.7 (0.3-1.0) mg/dL AST 11 L (13-39) Units/L ALT 13 (7-52) Units/L Alkaline Phosphatase 32 L (34-104) Units/L Albumin 3.2 L (3.5-5.7) g/dL - ABG Interpretation ABG results: PT/INR, D-dimer PT 13.3 Seconds (9.4-12.1) H 12/17/17 01:54 <John Taveras - Last Filed: 12/24/17 12:51> (1) Hypertension Qualifiers: Hypertension type: essential hypertension Qualified Code(s): I10 - Essential (primary) hypertension (2) Adenocarcinoma of lung Qualifiers: Laterality: right Qualified Code(s): C34.91 - Malignant neoplasm of unspecified part of right bronchus or lung (3) Chronic respiratory failure Qualifiers: Respiratory failure complication: hypoxia Qualified Code(s): J96.11 - Chronic respiratory failure with hypoxia (4) Sepsis Qualifiers: Sepsis type: sepsis due to unspecified organism Qualified Code(s): A41.9 - Sepsis, unspecified organism (6) Uspoc-pd-nsgnkfc kidney injury Qualifiers: Acute renal failure type: unspecified Chronic kidney disease stage: stage 2 (mild) Qualified Code(s): N17.9 - Acute kidney failure, unspecified; N18.2 - Chronic kidney disease, stage 2 (mild) (9) Opiate dependence Qualifiers: Substance use status: uncomplicated Qualified Code(s): F11.20 - Opioid dependence, uncomplicated <Jazz Flores Sylvester - Last Filed: 12/24/17 15:00> (3) Adenocarcinoma of lung Qualifiers: Qualified Code(s): C34.91 - Malignant neoplasm of unspecified part of right bronchus or lung (4) Sepsis Qualifiers: Qualified Code(s): A41.9 - Sepsis, unspecified organism (6) Fever Qualifiers: Qualified Code(s): R50.9 - Fever, unspecified (7) Etcos-bx-dkpajdp kidney injury Qualifiers: Qualified Code(s): N17.9 - Acute kidney failure, unspecified; N18.2 - Chronic kidney disease, stage 2 (mild) (11) Opiate dependence Qualifiers: Qualified Code(s): F11.20 - Opioid dependence, uncomplicated
[2017-12-24] MEDS: Aspirin Enteric Coated 81 MG Tablet PO SCH (09:25)
[2017-12-24] MEDS ORDERED: *HR* OxyCODONE/APAP 5/325 TABLET PO PRN (09:29)
--- NOTE | 2017-12-24 09:44 | Infectious Disease Progress No ---
Date of Encounter: 12/24/17 Time of Encounter: 09:15 - Assessment and Plan (1) Sepsis Current Visit: Yes Status: Resolved Severe sepsis: 3 sepsis criteria noted on admission with acute kidney injury and elevated troponin. 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 White blood cell count has normalized. Afebrile. Tachycardia and tachypnea have resolved. Mental status appears improved, but not back to baseline. Blood cultures drawn 2 sets from peripheral stick 12/17/17 are negative 2 sets. Repeat blood cultures drawn on 12/17/17 from the patient's A-port are negative 2 sets. Additional blood cultures drawn 12/21/17 x2 sets peripherally and x 2 sets from a-port are NGTD. Flu antigen swab was negative. RIP was negative. Chest x-ray showed right lung pleural parenchymal abnormality favored to be chronic in post treatment, but superimposed pneumonia cannot be excluded. CT abdomen and pelvis was negative for acute abnormality. CT and MRI of the head were also negative. CT chest negative for infectious etiology. Discontinue Cefepime and Flagyl. Doxycycline started by the primary team over the weekend. Qualifiers: Sepsis type: sepsis due to unspecified organism Qualified Code(s): A41.9 - Sepsis, unspecified organism (2) Meningoencephalitis Current Visit: Yes Status: Acute Causative organism: Unclear, but likely viral vs autoimmune. CT and MRI of the head are both negative for acute abnormality. Neurology consulted. Appreciate assistance. Attempted LP at bedside, but unsuccessful. Status post LP 12/19/17 by interventional radiology. Pleocytosis with lymphocytic predominance noted. CSF gram stain negative, culture is negative. HSV and VZV PCR are negative. Check cryptococcal antigen.--> negative. Lyme antibody testing ordered by the primary team and is pending. Repeat MRI ordered by the neuro team is pending. Discontinue Acyclovir. Monitor renal function and dose adjust medications. (3) Acute encephalopathy Current Visit: Yes Status: Acute Secondary to meningoencephalitis. Improved. Continue to monitor closely. (4) Pneumonia Current Visit: Yes Status: Ruled-out Chest x-ray showed right lung pleural parenchymal abnormality failure to be chronic and posttreatment related when compared to prior imaging, but difficult to exclude superimposed acute infectious airspace disease. CT chest negative for PNA. Check respiratory infectious panel.--> negative. Qualifiers: Pneumonia type: due to unspecified organism Laterality: right Lung location: lower lobe of lung Qualified Code(s): J18.1 - Lobar pneumonia, unspecified organism (5) [id number] kidney injury Current Visit: Yes Status: Acute Likely secondary to sepsis. Improved. Continue to trend. Monitor renal function and dose adjust antibiotics. Avoid nephrotoxins as able. Qualifiers: Acute renal failure type: unspecified Chronic kidney disease stage: stage 2 (mild) Qualified Code(s): N17.9 - Acute kidney failure, unspecified; N18.2 - Chronic kidney disease, stage 2 (mild) (6) Lightheaded Current Visit: Yes Status: Resolved Likely secondary to sepsis. CT and MRI of the head are both negative for acute abnormality. Neurology evaluation noted and appreciated. Resolved. (7) Elevated troponin Current Visit: Yes Status: Acute Troponins elevated at 0.07, 0.08, 0.06. The patient denies any chest pain. Further workup and management per the primary team. (8) CHF (congestive heart failure) Current Visit: Yes Status: Chronic Qualifiers: Heart failure type: unspecified Heart failure chronicity: chronic Qualified Code(s): I50.9 - Heart failure, unspecified (9) CKD (chronic kidney disease) Current Visit: No Status: Chronic Qualifiers: Chronic kidney disease stage: stage 3 (moderate) Qualified Code(s): N18.3 - Chronic kidney disease, stage 3 (moderate) (10) Metastatic primary lung cancer Current Visit: Yes Status: Acute Diagnosed in 2013 with primary lung adenocarcinoma. Remote history of right upper lobe lobectomy. Positive for pulmonary nodules with evidence of metastatic disease in 2016. Status post wedge resection of the right lung nodules 4. Started on Nivolumab [id number] in December 2016. Transitioned to Q4 week dosing in June 2017. Last dose 12/12/17. Hem/Onc consulted and following. Qualifiers: Laterality: right Qualified Code(s): C34.91 - Malignant neoplasm of unspecified part of right bronchus or lung (11) Morbid obesity with BMI of 40.0-44.9, adult Current Visit: No Status: Chronic (12) Nausea and vomiting Current Visit: Yes Status: Resolved Etiology unclear: possible opiate withdraw. CT of the abdomen and pelvis negative for acute abnormality. Started on morphine gtt by the primary team since the patient was NPO. Appears improved. Management per the primary team. Qualifiers: Vomiting type: unspecified Vomiting Intractability: unspecified Qualified Code(s): R11.2 - Nausea with vomiting, unspecified (13) Myoclonic jerking Current Visit: Yes Status: Acute Etiology unclear. Improved. Neurology consulted and following. - Subjective Interval history: Patient seen and examined sitting up in the bedside chair. Weekend notes reviewed. No acute events noted overnight. Patient is awake, alert, oriented x 3 and able to communicate today. He does still have delayed responses to questions and has trouble remembering the events leading up to his hospitalization. Denies fevers, chills, or rigors. Denies headache, dizziness, or neck pain. Denies chest pain or shortness of breath, but does have a dry cough. Denies nausea, vomiting, or diarrhea. Reports good output from his colostomy. Abdi catheter remains patent. Denies abdominal pain, urinary complaints. Reports he has been able to eat a little, but he appears to have altered taste sensation and he states nothing tastes good. Denies oral thrush or new skin lesions. Denies back, joint, or extremity pain. Infect Dis PN-Objective Data - Labs CBC & Chem 7: 12/24/17 04:08 12/24/17 04:08 Labs: Laboratory Results - last 24 hr 12/19/17 12/22/17 12/22/17 13:01 12:23 17:14 WBC RBC Hgb Hct MCV MCH MCHC RDW Plt Count MPV Sodium Potassium Chloride Carbon Dioxide BUN Creatinine Est GFR ( Amer) Est GFR (Non-Af Amer) BUN/Creatinine Ratio Glucose POC Glucose 135 H 158 H Calculated Osmolality Calcium Total Bilirubin AST ALT Alkaline Phosphatase Serum Total Protein Albumin Globulin Albumin/Globulin Ratio Herpes Simplex Source CSF Herpes Simplex DNA PCR NOT DETECTED Varicella-Zoster Source CSF VZV DNA (PCR) NOT DETECTED 12/22/17 12/23/17 12/23/17 21:23 07:34 11:50 WBC RBC Hgb Hct MCV MCH MCHC RDW Plt Count MPV Sodium Potassium Chloride Carbon Dioxide BUN Creatinine Est GFR ( Amer) Est GFR (Non-Af Amer) BUN/Creatinine Ratio Glucose POC Glucose 164 H 114 H 159 H Calculated Osmolality Calcium Total Bilirubin AST ALT Alkaline Phosphatase Serum Total Protein Albumin Globulin Albumin/Globulin Ratio Herpes Simplex Source Herpes Simplex DNA PCR Varicella-Zoster Source VZV DNA (PCR) 12/23/17 12/24/17 12/24/17 17:10 04:08 04:08 WBC 7.3 RBC 4.51 Hgb 13.6 Hct 40.4 MCV 89.6 MCH 30.2 MCHC 33.7 RDW 14.6 H Plt Count 107 L MPV 11.3 Sodium 141 Potassium 3.8 Chloride 106 Carbon Dioxide 29 BUN 16 Creatinine 0.82 Est GFR ( Amer) > 60 Est GFR (Non-Af Amer) > 60 BUN/Creatinine Ratio 20 Glucose 112 H POC Glucose 105 H Calculated Osmolality 294 Calcium 8.8 Total Bilirubin 0.7 AST 11 L ALT 13 Alkaline Phosphatase 32 L Serum Total Protein 5.5 L Albumin 3.2 L Globulin 2.3 L Albumin/Globulin Ratio 1.4 Herpes Simplex Source Herpes Simplex DNA PCR Varicella-Zoster Source VZV DNA (PCR) Cultures: Cultures 12/17/17 22:35 Blood Culture - Final Port System No growth. Final report. 12/17/17 22:35 Blood Culture - Final Port System No growth. Final report. 12/19/17 13:01 CSF Culture - Final Cerebral Spinal Fluid 12/17/17 07:10 Blood Culture - Final Peripheral Venipuncture No growth. Final report. 12/17/17 07:16 Blood Culture - Final Peripheral Venipuncture No growth. Final report. 12/21/17 08:35 Blood Culture - Preliminary Port System Culture is incubating and being continuously monitored for growth. Final report to follow. 12/21/17 08:35 Blood Culture - Preliminary Peripheral Venipuncture Culture is incubating and being continuously monitored for growth. Final report to follow. 12/21/17 08:35 Blood Culture - Preliminary Peripheral Venipuncture Culture is incubating and being continuously monitored for growth. Final report to follow. 12/21/17 08:35 Blood Culture - Preliminary Port System Culture is incubating and being continuously monitored for growth. Final report to follow. 12/18/17 11:53 Cryptococcal Antigen - Final Serum 12/17/17 10:05 Influenza Types A,B Antigen - Final Nasopharyngeal Serology 12/19/17 12/19/17 12/18/17 Range/Units 13:01 13:01 11:53 Urine Color (Yellow) Urine Clarity (Clear) Urine pH (5.0-8.0) pH Units Ur Specific [place] (1.010-1.025) Urine Protein (Neg-Trace) mg/dL Urine Glucose (UA) (Normal) mg/dL Urine Ketones (Negative) mg/dL Urine Blood (Negative) Urine Nitrite (Negative) Urine Bilirubin (Negative) Urine Urobilinogen (Normal) mg/dL Ur Leukocyte Esterase (Negative) Ur Culture Indicated? (NO) CSF Volume 11.0 mL CSF Appearance Clear (Clear) CSF Color Colorless (Colorless) CSF RBC < 0.002 (0.000 - 0.002) M/mcL CSF Tot Nucleated Cells 167 H* (0-5) TNC/mcL CSF Seg Neutrophils 5.0 % CSF Band Neutrophils % 4.0 % CSF Lymphocytes % 79.0 % CSF Monocytes % 12.0 % CSF Eosinophils % Test Not Performed CSF Basophils % Test Not Performed CSF Other Cells % Test Not Performed CSF Glucose 66 (40-70) mg/dL CSF Xanth Comm Not Observed (Not Observe) CSF Total Protein 104 H (15-45) mg/dL CSF B. burgdorferi Ab Pending CSF B.burgdorferi IgG Pending CSF B.burgdorferi IgM Pending Chlamy pneumoniae PCR Not Detected (Not Detect) Adenovirus (PCR) Not Detected (Not Detect) B. pertussis DNA (PCR) Not Detected (Not Detect) B.parapertussis DNA PCR Not Detected (Not Detect) Coronavirus OC43 (PCR) Not Detected (Not Detect) Coronavirus HKU1 (PCR) Not Detected (Not Detect) Coronavirus 229E (PCR) Not Detected (Not Detect) Coronavirus NL63 (PCR) Not Detected (Not Detect) Herpes Simplex Source CSF Herpes Simplex DNA PCR NOT DETECTED Human Metapneumovir PCR Not Detected (Not Detect) Influenza A (H1) PCR Not Detected (Not Detect) Influ A (H1N1/09) PCR Not Detected (Not Detect) Influenza A (H3) PCR Not Detected (Not Detect) Influenza A Untype (PCR) Not Detected (Not Detect) Influenza Type B (PCR) Not Detected (Not Detect) M.pneumoniae DNA (PCR) Not Detected (Not Detect) Parainfluenza 1 (PCR) Not Detected (Not Detect) Parainfluenza 2 (PCR) Not Detected (Not Detect) Parainfluenza 3 (PCR) Not Detected (Not Detect) Parainfluenza 4 (PCR) Not Detected (Not Detect) RSV (PCR) Not Detected (Not Detect) Entero/Rhino (PCR) Not Detected (Not Detect) Varicella-Zoster Source CSF VZV DNA (PCR) NOT DETECTED 12/17/17 Range/Units 05:38 Urine Color Yellow (Yellow) Urine Clarity Clear (Clear) Urine pH 5.5 (5.0-8.0) pH Units Ur Specific [place] 1.030 H (1.010-1.025) Urine Protein Negative (Neg-Trace) mg/dL Urine Glucose (UA) Normal (Normal) mg/dL Urine Ketones Negative (Negative) mg/dL Urine Blood Negative (Negative) Urine Nitrite Negative (Negative) Urine Bilirubin Negative (Negative) Urine Urobilinogen Normal (Normal) mg/dL Ur Leukocyte Esterase Negative (Negative) Ur Culture Indicated? NO (NO) CSF Volume mL CSF Appearance (Clear) CSF Color (Colorless) CSF RBC (0.000 - 0.002) M/mcL CSF Tot Nucleated Cells (0-5) TNC/mcL CSF Seg Neutrophils % CSF Band Neutrophils % % CSF Lymphocytes % % CSF Monocytes % % CSF Eosinophils % CSF Basophils % CSF Other Cells % CSF Glucose (40-70) mg/dL CSF Xanth Comm (Not Observe) CSF Total Protein (15-45) mg/dL CSF B. burgdorferi Ab CSF B.burgdorferi IgG CSF B.burgdorferi IgM Chlamy pneumoniae PCR (Not Detect) Adenovirus (PCR) (Not Detect) B. pertussis DNA (PCR) (Not Detect) B.parapertussis DNA PCR (Not Detect) Coronavirus OC43 (PCR) (Not Detect) Coronavirus HKU1 (PCR) (Not Detect) Coronavirus 229E (PCR) (Not Detect) Coronavirus NL63 (PCR) (Not Detect) Herpes Simplex Source Herpes Simplex DNA PCR Human Metapneumovir PCR (Not Detect) Influenza A (H1) PCR (Not Detect) Influ A (H1N1/09) PCR (Not Detect) Influenza A (H3) PCR (Not Detect) Influenza A Untype (PCR) (Not Detect) Influenza Type B (PCR) (Not Detect) M.pneumoniae DNA (PCR) (Not Detect) Parainfluenza 1 (PCR) (Not Detect) Parainfluenza 2 (PCR) (Not Detect) Parainfluenza 3 (PCR) (Not Detect) Parainfluenza 4 (PCR) (Not Detect) RSV (PCR) (Not Detect) Entero/Rhino (PCR) (Not Detect) Varicella-Zoster Source VZV DNA (PCR) Exam - Constitutional Vitals: Temp Pulse Resp BP Pulse Ox 98.0 F 59 16 158/83 96 12/24/17 06:47 12/24/17 06:47 12/24/17 06:47 12/24/17 06:47 12/24/17 06:47 General appearance: cooperative, no acute distress, obese - Head Head exam: Present: atraumatic, normal inspection, normocephalic - Eye Eye exam: Present: EOMI, normal appearance, PERRL Pupils: Present: normal accommodation - ENT ENT exam: Present: mucous membranes moist - Neck Neck exam: Present: normal inspection. Absent: meningismus - Respiratory Respiratory exam: Present: CTAB, wheezes (Faint inspiratory wheeze posterior lobes.). Absent: rales, respiratory distress, rhonchi - Cardiovascular Cardiovascular exam: Present: RRR, +S1, +S2 - GI/Abdominal GI/Abdominal exam: Present: distended (obese), normal bowel sounds, soft. Absent: tenderness Additional comments: Colostomy noted to the LLQ with small amount of liquid brown stool noted in the collection ba. Stoma mildly prolapsed, but beefy red. Abdi catheter remains patent draining clear yellow urine. - Extremities Exam Extremities exam: Present: normal inspection. Absent: joint swelling, pedal edema, tenderness - Back Exam Back exam: Present: normal inspection. Absent: paraspinal tenderness, vertebral tenderness - Neurological Exam Neurological exam: Present: alert, oriented X3, no focal deficits Additional comments: Slow to answer questions. Myoclonic jerking noted. - Psychiatric Psychiatric exam: Present: normal affect, normal mood - Skin Skin exam: Present: dry, intact, normal color, warm - Additional findings Additional findings: A-port noted to the right upper chest, currently accessed with Crook needle. Transparent dressing C/D/I. Consult Discharge Plan - Plan Referrals: Maxine Delatorre [employer] [Primary Care Provider] - - Attending Attestation I examined this patient and my medical decision-making was reviewed with the Resident Physician. I agree with the documented findings, disposition and treatment plan as described except to the extent set forth below. Discussed with neurology team, okay to stop acyclovir.
[2017-12-24] MEDS: Ipratropium/Albuterol Neb 3 ML IH SCH ×3 (11:10→22:20)
[2017-12-24] MEDS: clonazePAM 0.5 MG TABLET PO SCH ×3 (12:14→22:24)
[2017-12-24] MEDS ORDERED: metroNIDAZOLE 500 MG TABLET PO SCH (15:00)
--- NOTE | 2017-12-24 15:00 | Oncology Inp Progress Note ---
<Darling Enrique L - Last Filed: 12/24/17 17:00> Date of Encounter: 12/24/17 Time of Encounter: 12:30 (1) Adenocarcinoma of lung Current Visit: Yes Status: Chronic Assessment and plan: Recurrent non-small cell lung cancer (adenocarcinoma), currently on second line of treatment with Nivolumab 480 mg IV Q4 weeks since 07/26/2017 (previously on Nivolumab 240 mg IV Q2 weeks initiated 01/08/2017). Last nivolumab treatment was 12/12/2017. 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 If this is confirmed, there will be discussion on permanent discontinuation versus risk/benefits of it's continuation, this decision would ultimately be up to patients treating oncologist If discontinued, other options for treatment may be pursued Qualifiers: Laterality: right Qualified Code(s): C34.91 - Malignant neoplasm of unspecified part of right bronchus or lung (2) Myoclonic jerking Current Visit: Yes Status: Acute Assessment and plan: Patient's family report improvement over weekend Patients family are reporting "blank staring" at times Reviewed neurology noted. Etiology unclear EEG was no evidence of seizure activity Repeat MRI of the brain has been ordered---pending Klonopin started per neurology (3) Meningoencephalitis Current Visit: Yes Status: Acute Assessment and plan: Viral versus immune mediated Immune mediated encephalitis is of concern given current therapy with Nivolumab, we have initiated solumedrol 50 mg BID until other viral causes may be ruled out S/P LP with 167 TNC, lymphocyte predominance, total protein elevated at 104 CSF culture with many WBC, No observed Bacteria/Epithelial cells, Culture no growth cryptococcal antigen negative HSV/VZV CSF-negative He is empirically on acyclovir and steroid treatment At this time time, 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 From an oncology standpoint continue solumedrol for possible immune mediated effect until we have confirmation of source If no viral source is identified, there needs to be an individualized discussion with patients treating oncologist for decision to continue or discontinue immunotherapy Appreciate further recommendations per ID/Neuro Oncology: Subj Interval history: Mr. Ricardo's daughter is at bedside. No acute events over weekend. He has been afebrile for at least 48 hours. Mental status remains unchanged, he continues to exhibit word finding difficulties and difficulty with recall. He is however alert and oriented 3. His mental status and drowsiness appears to wax and wane, he is currently quite somnolent but awakens to voice. Myoclonic jerking movements have improved over the weekend with initiation of Klonopin. - Constitutional Vitals: Vital Signs Temp Pulse Resp BP Pulse Ox 12/24/17 11:02 98.4 F 51 16 135/79 96 12/24/17 06:47 98.0 F 59 16 158/83 96 12/24/17 04:35 97.5 F L 78 17 165/53 96 12/24/17 00:12 98.2 F 69 17 172/97 93 12/23/17 22:21 16 96 12/23/17 21:32 98 F 70 17 150/92 91 12/23/17 17:05 98.4 F 73 20 175/89 96 12/23/17 16:07 18 96 Intake and Output 12/23/17 12/24/17 12/24/17 23:59 07:59 15:59 Intake Total 740 / 740 390 / 390 925 / 925 Output Total 1250 / 1250 450 / 450 875 / 875 Balance -510 / -510 -60 / -60 50 / 50 Intake: IV Fluids 740 / 740 390 / 390 Maxipime 2,000 MG In Water for 20 / 20 inj. (sterile) 20 ML @ 300 mls/ hr IVP Q8HR [facility] Rx#:[id number] Zovirax 1,000 MG In Dextrose 5% 540 / 540 270 / 270 250 ML @ 250 mls/hr IVPB Q8H [facility] Rx#:[id number] Doxycycline 100 MG In 0.9 % 100 / 100 Sodium Chloride (Mini-Bag +) 100 ML @ 100 mls/hr IVPB Q12HR [facility] Rx#:[id number] Flagyl Premix 500 MG/100 ML 500 100 / 100 100 / 100 mg In 100 ml @ 100 mls/hr IVPB Q8HR [facility] Rx#:[id number] Oral 925 / 925 Output: Stool 175 / 175 Catheter 1250 / 1250 450 / 450 700 / 700 Other: Weight 128.4 kg Blood Glucose* 145 90 131 Patient Weight 12/24/17 23:59 Weight 128.4 kg General appearance: cooperative, no acute distress, no febrile - Head Head exam: Present: atraumatic - ENT ENT exam: Present: mucous membranes moist Additional comments: bilateral buccal lesions present as previously noted on admission note - Respiratory Respiratory exam: Present: CTAB. Absent: respiratory distress - Cardiovascular Cardiovascular exam: Present: RRR, +S1, +S2 - GI/Abdominal GI/Abdominal exam: Present: normal bowel sounds, soft. Absent: tenderness - Extremities Exam Extremities exam: Absent: calf tenderness - Neurological Exam Neurological exam: Present: alert, oriented X3, no focal deficits, strengths equal and symetr throughout Additional comments: Slow to respond, continues to have difficulty with recall and word finding abilities - Psychiatric Psychiatric exam: Present: normal affect, normal mood - Skin Skin exam: Present: dry, intact, normal color, warm. Absent: diaphoretic Oncology: Obj Data - Labs CBC & Chem 7: 12/24/17 04:08 12/24/17 04:08 - Impressions Impressions Brain MRI 12/24/17 07:52 IMPRESSION: Mild cerebral atrophy. No acute brain parenchymal abnormality. D/ / 12/24/2017 10:46:39 Shani Hong MD / Nkechi Brownlee Interpreting Provider: Shani Hong MD - ABG Interpretation ABG results: PT/INR, D-dimer PT 13.3 Seconds (9.4-12.1) H 12/17/17 01:54 Consult Discharge Plan - Plan Referrals: Maxine Delatorre, [employer] [Primary Care Provider] - <Cynthia Gibson - Last Filed: 12/24/17 18:32> Oncology: Subj Interval history: No fever spike, HSV neg, occ confusion. On steroids for for autoimmune sequele.Appreciate neurology input. I examined this patient and my medical decision-making was reviewed with the Advanced Practice Nurse, Darling Enrique. I agree with the documented findings, disposition and treatment plan as described except to the extent set forth below. - Constitutional Vitals: Vital Signs Temp Pulse Resp BP Pulse Ox 12/24/17 16:11 98.7 F 82 18 137/87 96 12/24/17 11:10 18 95 12/24/17 11:02 98.4 F 51 16 135/79 96 12/24/17 06:47 98.0 F 59 16 158/83 96 12/24/17 04:35 97.5 F L 78 17 165/53 96 12/24/17 00:12 98.2 F 69 17 172/97 93 12/23/17 22:21 16 96 12/23/17 21:32 98 F 70 17 150/92 91 Intake and Output 12/24/17 12/24/17 12/24/17 07:59 15:59 23:59 Intake Total 390 / 390 925 / 925 Output Total 450 / 450 875 / 875 450 / 450 Balance -60 / -60 50 / 50 -450 / -450 Intake: IV Fluids 390 / 390 Maxipime 2,000 MG In Water for inj. (sterile) 20 ML @ 300 mls/ hr IVP Q8HR [facility] Rx#:[id number] Zovirax 1,000 MG In Dextrose 5% 270 / 270 250 ML @ 250 mls/hr IVPB Q8H [facility] Rx#:[id number] Flagyl Premix 500 MG/100 ML 500 100 / 100 mg In 100 ml @ 100 mls/hr IVPB Q8HR [facility] Rx#:[id number] Oral 925 / 925 Output: Urine 450 / 450 Stool 175 / 175 Catheter 450 / 450 700 / 700 Other: Weight 128.4 kg Blood Glucose* 90 131 128 Patient Weight 12/24/17 23:59 Weight 128.4 kg Oncology: Obj Data - Labs CBC & Chem 7: 12/24/17 04:08 12/24/17 04:08 Labs: Laboratory Results - last 24 hr 12/22/17 12/22/17 12/23/17 11:22 21:23 07:34 WBC RBC Hgb Hct MCV MCH MCHC RDW Plt Count MPV Sodium Potassium Chloride Carbon Dioxide BUN Creatinine Est GFR ( Amer) Est GFR (Non-Af Amer) BUN/Creatinine Ratio Glucose POC Glucose 164 H 114 H Calculated Osmolality Calcium Total Bilirubin AST ALT Alkaline Phosphatase Serum Total Protein Albumin Globulin Albumin/Globulin Ratio Lyme Total Antibody Negative 12/23/17 12/23/17 12/24/17 11:50 17:10 04:08 WBC 7.3 RBC 4.51 Hgb 13.6 Hct 40.4 MCV 89.6 MCH 30.2 MCHC 33.7 RDW 14.6 H Plt Count 107 L MPV 11.3 Sodium Potassium Chloride Carbon Dioxide BUN Creatinine Est GFR ( Amer) Est GFR (Non-Af Amer) BUN/Creatinine Ratio Glucose POC Glucose 159 H 105 H Calculated Osmolality Calcium Total Bilirubin AST ALT Alkaline Phosphatase Serum Total Protein Albumin Globulin Albumin/Globulin Ratio Lyme Total Antibody 12/24/17 04:08 WBC RBC Hgb Hct MCV MCH MCHC RDW Plt Count MPV Sodium 141 Potassium 3.8 Chloride 106 Carbon Dioxide 29 BUN 16 Creatinine 0.82 Est GFR ( Amer) > 60 Est GFR (Non-Af Amer) > 60 BUN/Creatinine Ratio 20 Glucose 112 H POC Glucose Calculated Osmolality 294 Calcium 8.8 Total Bilirubin 0.7 AST 11 L ALT 13 Alkaline Phosphatase 32 L Serum Total Protein 5.5 L Albumin 3.2 L Globulin 2.3 L Albumin/Globulin Ratio 1.4 Lyme Total Antibody - Impressions Impressions Brain MRI 12/24/17 07:52 IMPRESSION: Mild cerebral atrophy. No acute brain parenchymal abnormality. D/ / 12/24/2017 10:46:39 Shani Hong MD / Nkechi Brownlee Interpreting Provider: Shani Hong MD - ABG Interpretation ABG results: PT/INR, D-dimer PT 13.3 Seconds (9.4-12.1) H 12/17/17 01:54 Inpatient Charges Provider: Dr. Lenny Gibson Follow up - Inpatient: [id number]
[2017-12-24] MEDS: Doxycycline 100 MG CAPSULE PO SCH (22:24)
[2017-12-24] MEDS ORDERED: Ipratropium/Albuterol Neb 3 ML IH PRN (23:23)
[2017-12-25] MEDS: *HR* Heparin 5,000 UNIT/ML VIAL SQ SCH ×3 (00:01→16:54)
[2017-12-25 04:23] LABS: Basophils % 0.1 %; Hematocrit 43.1 % (37.5-50.1); Hemoglobin 14.2 g/dL (12.9-16.9); Immature Granulocytes % 1.5 % (0-4); Lymphocytes # 0.6 K/mcL (0.6-4.6); Lymphocytes % 7.4 %; Mean Corpuscular HGB Conc 32.9 g/dL (31.6-35.5); Mean Corpuscular Hemoglobin 29.8 pg (28.0-33.3); Mean Corpuscular Volume 90.5 fL (83.0-100.0); Mean Platelet Volume 11.6 fL (9.4-12.4); Monocytes # 0.5 K/mcL (0.0-1.3); Monocytes % 5.8 %; Neutrophils # 6.8 K/mcL (1.6-8.9); Nucleated Red Blood Cells 0.3 /100 WBC (0); Platelet Count 115 K/mcL (140-400); Red Blood Count 4.76 M/mcL (4.19-5.50); Red Cell Distribution Width 14.7 % (11.5-14.5); Segmented Neutrophils % 85.2 %
[2017-12-25 04:38] LABS: Alanine Aminotransferase 16 Units/L (7-52); Albumin 3.4 g/dL (3.5-5.7); Albumin/Globulin Ratio 1.7 (1.1-2.2); Alkaline Phosphatase 35 Units/L (34-104); Aspartate Amino Transferase 12 Units/L (13-39); BUN/Creatinine Ratio 24 (6-26); Bilirubin,Total 0.7 mg/dL (0.3-1.0); Blood Urea Nitrogen 20 mg/dL (8-23); Calcium 9.2 mg/dL (8.6-10.3); Carbon Dioxide 30 mEq/L (23-29); Chloride 103 mEq/L (98-107); Glucose 118 mg/dL (70-105); Magnesium 1.7 mg/dL (1.6-2.6); Osmolality,Calculated 294 (280-300); Potassium 3.8 mEq/L (3.5-5.1); Sodium 140 mEq/L (136-145); Total Protein 5.4 g/dL (6.4-8.9); eGFR For Non-African Americans > 60 (> 60)
[2017-12-25] MEDS: MethylPREDNISolone 40 MG/ML VIAL IVP SCH (06:28)
--- NOTE | 2017-12-25 07:36 | Internal Med Progress Note ---
<Kalyn Nixon - Last Filed: 12/25/17 12:05> Hospitalist Progress Note - Exam Vitals: Temp Pulse Resp BP Pulse Ox 97.6 F 78 17 115/73 98 12/25/17 11:38 12/25/17 11:38 12/25/17 11:38 12/25/17 11:38 12/25/17 11:38 - Assessment and Plan (1) Hypertension Current Visit: No Status: Chronic (2) Adenocarcinoma of lung Current Visit: Yes Status: Chronic (3) Chronic respiratory failure Current Visit: No Status: Chronic (4) Sepsis Current Visit: Yes Status: Resolved (5) AQUILES on CPAP Current Visit: No Status: Chronic (6) Ulcer of left lower extremity with fat layer exposed Current Visit: Yes Status: Acute (7) Qshkz-yh-hbbhvmy kidney injury Current Visit: Yes Status: Acute (8) Acute metabolic encephalopathy Current Visit: Yes Status: Acute (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 (10) Opiate dependence Current Visit: Yes Status: Chronic (11) Hypokalemia Current Visit: Yes Status: Acute (12) Myoclonus Current Visit: Yes Status: Acute (13) Dysgeusia Current Visit: Yes Status: Acute - Time Spent with Patient Total time spent is greater than 50% in coordination of care (as documented) at patient's floor/unit and/or counseling patient: Internal Medicine: Result - Labs CBC & Chem 7: 12/25/17 04:03 12/25/17 04:03 Labs: Short CBC 12/25/17 Range/Units 04:03 WBC 7.9 (4.3-11.1) K/mcL Hgb 14.2 (12.9-16.9) g/dL Hct 43.1 (37.5-50.1) % Plt Count 115 L (140-400) K/mcL Neutrophils # 6.8 (1.6-8.9) K/mcL BMP 12/25/17 04:03 Sodium 140 Potassium 3.8 Chloride 103 Carbon Dioxide 30 H BUN 20 Creatinine 0.85 Glucose 118 H Calcium 9.2 Liver Function 12/25/17 Range/Units 04:03 Total Bilirubin 0.7 (0.3-1.0) mg/dL AST 12 L (13-39) Units/L ALT 16 (7-52) Units/L Alkaline Phosphatase 35 (34-104) Units/L Albumin 3.4 L (3.5-5.7) g/dL - ABG Interpretation ABG results: PT/INR, D-dimer PT 13.3 Seconds (9.4-12.1) H 12/17/17 01:54 Consult Discharge Plan - Plan Referrals: Maxine Delatorre, ASSEMBLER SHOW [employer]OR [Primary Care Provider] - - Attending Attestation I examined this patient and my medical decision-making was reviewed with the Resident Physician. I agree with the documented findings, disposition and treatment plan as described except to the extent set forth below. Mr Ricardo is currently admitted for acute encephalopathy/encephalitis. asleep, awakes to name. Difficulty maontaing attention to answer questions. Denies pain, headache, nausea, emesis. Pleasant. 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 dispo- rec for rehab and SW following <Jazz Flores - Last Filed: 12/25/17 13:06> Hospitalist Progress Note - Encounter Date of Encounter: 12/25/17 Time of Encounter: 07:32 - Subjective Interval History: 67M PMH Metastatic primary lung Ca presented with LH/Dizziness admitted with 3 s epsis criteria. Pt has had a waxing and waning mental status which was initially thought to be infectious v immune mediated encephalitis. RP, Flu, cryptococcal, lyme negative. BC from 12/17 showed no growth, repeat BC from 12/21 pending. CSF culture showed elevated WBC and protein consistent with immune mediated process, on 50mg IV solumedrol BID, planning to switch to oral 120mg. Pt currently on doxycycline 100mg BID, all other antibiotics de-escalated by ID. Pt not alert or oriented at this time. No acute events overnight. Nursing notes that he seems to be improving. PT recommends he be d/c to rehab facility to regain functional strength. - Exam Vitals: Temp Pulse Resp BP Pulse Ox 98.4 F 65 18 132/76 94 12/25/17 04:16 12/25/17 04:16 12/25/17 04:16 12/25/17 04:16 12/25/17 04:16 Exam: Gen: Asleep, will arouse, but is not awake or alert, and answers questions with random words. Decreased mental status from yesterday. ENT: mucous membranes moist Cardio: RRR no m/r/g Pulm: Expiratory wheezes appreciated R>L diffusely Abd: Normoactive bowel sounds, does not complain of pain on palpation Extremities: Bandage present on left posterior calf, scabbed abrasions healing on left posterior tibialis area, and on dorsal aspect of left foot. Right extremity unremarkable. Skin: Warm, dry, intact Neuro: Unable to assess due to mental status - Assessment and Plan (1) Encephalopathy Current Visit: Yes Status: Acute Assessment and Plan: Likely viral vs immune mediated encephalopathy CT and MRI head revealed no acute intracranial abnormality, repeat brain MRI from 12/24/17 showed mild cerebral atrophy with no acute brain parenchymal abnormality. LP revealed cells 167, protein 101, LP cultures shows no growth to date EEG recording was consistent with a mild to moderate generalized encephalopathy. There is no evidence of epileptiform activity identified during the study. Etiologies of this interpretation might include toxic, metabolic, postictal, degenerative. Solu-medrol 50mg BID per oncology recommendations, switching to oral prednisone 120mg ID d/c Acyclovir, Flagyl, Cefepime Started doxycycline 12/22/17 while waiting for Lyme titers, which returned negat john, but ID would like doxy continued Mental status now much improved, continue to monitor ID and Neurology following (2) CHF (congestive heart failure) Current Visit: No Status: Chronic Assessment and Plan: Chronic in nature no current issues continue to monitor (3) Adenocarcinoma of lung Current Visit: Yes Status: Chronic Assessment and Plan: followed by oncology (4) Sepsis Current Visit: Yes Status: Resolved Assessment and Plan: Blood cultures from peripheral and port negative from 12/17/17, repeat cultures from 12/21/17 pending UA unremarkable Last lactic acid 0.8, repeat level 0.7 Cryptococcal antigen negative RIP, Flu swab negative Fever free for 48 hours ID following, have de-escalated all abx except doxycycline Duration of therapy depends on clinical course Monitor I & Os (5) Ulcer of left lower extremity with fat layer exposed Current Visit: Yes Status: Acute Assessment and Plan: Followed by wound care while admitted wound care treating with collagen, per outpatient [facility] (6) Fever Current Visit: Yes Status: Resolved Assessment and Plan: resolved (7) Kwdrk-sb-rjyigfq kidney injury Current Visit: Yes Status: Acute Assessment and Plan: Creat baseline in last year based on available records appears to be about 1., his baseline CKD stage is unknown Creat on admit 1.53, UA neg for infection Possibly dehydrated, IVFs given May be related to recent nivolumab, oncology following Continue to renally dose meds, gentle hydration, monitor output, avoid nephrotoxic agents Resumed home dose Lasix 20 mg by mouth daily (8) Lightheaded Current Visit: Yes Status: Resolved Assessment and Plan: resolved (9) DVT prophylaxis Current Visit: No Status: Acute Assessment and Plan: heparin 5000u TID SQ (10) Myoclonic jerking Current Visit: Yes Status: Acute Assessment and Plan: Neurology following, recommended 0.5mg Klonopin BID (11) Opiate dependence Current Visit: Yes Status: Chronic Assessment and Plan: Patient takes MS Contin twice a day and Morphine intermediate release 30 mg by mouth every 4 hours Patient previously on morphine pump number, wean down to 15 mg scheduled BID to prevent withdrawal. Continue oxycodone when necessary for breakthrough pain DVT Prophylaxis: Heparin subcutaneous TID - Time Spent with Patient Total time spent is greater than 50% in coordination of care (as documented) at patient's floor/unit and/or counseling patient: less than 15 minutes Plan of Care Discussed with: patient Internal Medicine: Result - Labs CBC & Chem 7: 12/25/17 04:03 12/25/17 04:03 Labs: Short CBC 12/25/17 Range/Units 04:03 WBC 7.9 (4.3-11.1) K/mcL Hgb 14.2 (12.9-16.9) g/dL Hct 43.1 (37.5-50.1) % Plt Count 115 L (140-400) K/mcL Neutrophils # 6.8 (1.6-8.9) K/mcL BMP 12/25/17 04:03 Sodium 140 Potassium 3.8 Chloride 103 Carbon Dioxide 30 H BUN 20 Creatinine 0.85 Glucose 118 H Calcium 9.2 Liver Function 12/25/17 Range/Units 04:03 Total Bilirubin 0.7 (0.3-1.0) mg/dL AST 12 L (13-39) Units/L ALT 16 (7-52) Units/L Alkaline Phosphatase 35 (34-104) Units/L Albumin 3.4 L (3.5-5.7) g/dL - ABG Interpretation ABG results: PT/INR, D-dimer PT 13.3 Seconds (9.4-12.1) H 12/17/17 01:54 - Impressions Impressions Brain MRI 12/24/17 07:52 IMPRESSION: Mild cerebral atrophy. No acute brain parenchymal abnormality. D/ / 12/24/2017 10:46:39 Shani Hong MD / Nkechi Brownlee Interpreting Provider: Shani Hong MD <Kalyn Nixon - Last Filed: 12/25/17 12:05> (1) Hypertension Qualifiers: Hypertension type: essential hypertension Qualified Code(s): I10 - Essential (primary) hypertension (2) Adenocarcinoma of lung Qualifiers: Laterality: right Qualified Code(s): C34.91 - Malignant neoplasm of unspecified part of right bronchus or lung (3) Chronic respiratory failure Qualifiers: Respiratory failure complication: hypoxia Qualified Code(s): J96.11 - Chronic respiratory failure with hypoxia (4) Sepsis Qualifiers: Sepsis type: sepsis due to unspecified organism Qualified Code(s): A41.9 - Sepsis, unspecified organism (7) Qqdga-ny-ldtkdsg kidney injury Qualifiers: Acute renal failure type: unspecified Chronic kidney disease stage: stage 2 (mild) Qualified Code(s): N17.9 - Acute kidney failure, unspecified; N18.2 - Chronic kidney disease, stage 2 (mild) (10) Opiate dependence Qualifiers: Substance use status: uncomplicated Qualified Code(s): F11.20 - Opioid dependence, uncomplicated <Jazz Flores - Last Filed: 12/25/17 13:06> (3) Adenocarcinoma of lung Qualifiers: Laterality: right Qualified Code(s): C34.91 - Malignant neoplasm of unspecified part of right bronchus or lung (4) Sepsis Qualifiers: Sepsis type: sepsis due to unspecified organism Qualified Code(s): A41.9 - Sepsis, unspecified organism (6) Fever Qualifiers: Fever type: unspecified Qualified Code(s): R50.9 - Fever, unspecified (7) Eoqof-me-vaztdpw kidney injury Qualifiers: Acute renal failure type: unspecified Chronic kidney disease stage: stage 2 (mild) Qualified Code(s): N17.9 - Acute kidney failure, unspecified; N18.2 - Chronic kidney disease, stage 2 (mild) (11) Opiate dependence Qualifiers: Substance use status: uncomplicated Qualified Code(s): F11.20 - Opioid dependence, uncomplicated
[2017-12-25] MEDS: Aspirin Enteric Coated 81 MG Tablet PO SCH (07:45)
[2017-12-25] MEDS: Doxycycline 100 MG CAPSULE PO SCH ×2 (07:45→19:55)
[2017-12-25] MEDS: clonazePAM 0.5 MG TABLET PO SCH ×2 (07:45→19:55)
[2017-12-25] MEDS: *HR* Morphine Sulfate SR (12 HR) 15 MG TABLET.ER PO SCH ×2 (07:45→19:34)
[2017-12-25 08:20] LABS: Borrelia burgdorferi Abs CSF 0.17 LIV (<=0.99)
--- NOTE | 2017-12-25 09:56 | Neurology Progress Note ---
Date of Encounter: 12/25/17 Time of Encounter: 09:54 Assessment and Plan (1) Acute metabolic encephalopathy Current Visit: Yes Status: Acute Mental status has progressively improved over the duration of the hospital stay. He has remained afebrile over the last 24 hours. It seems that his encephalopathy is improving. The myoclonus is resolving as well. We were unable to identify any specific infectious agent. Suspect that we are dealing with autoimmune encephalitis as a result of the nivolumab. May continue Klonopin for now. I would like to follow up with him as an outpatient to determine whether not the Klonopin remains necessary. Otherwise I will follow peripherally. Subjective Principal diagnosis: Meningitis/encephalitis Interval history: Chart was reviewed, patient was seen and examined. Patient was sleeping upon my entering the room. He aroused easily to voice. He is currently oriented 3. Follows commands and answers questions appropriately.. His mental status is progressively improved over the duration of his hospital stay. The myoclonus has resolved. He denies headache. Viral titers were all negative. He is still on the doxycycline and tolerating it without difficulty. Objective - Constitutional Vitals: Temp Pulse Resp BP Pulse Ox 97.5 F L 74 18 139/94 100 12/25/17 07:36 12/25/17 07:36 12/25/17 07:36 12/25/17 07:36 12/25/17 07:36 - Neurological Exam Sensorimotor examination: Present: intact Motor Examination: Present: grossly full strength in all extremities Sensation intact: Present: intact Reflex and gait examination: other Mental Status Examination: Present: awake, alert, oriented to person, oriented to place, oriented to time, follows commands appropriately, opens eyes to voice, not reliable historian Cranial nerve examination: Present: PERRL, EOMI, sensory to face intact, no facial asymmetry is present, no dysarthria, hearing is intact symmetrically, soft palate elevates bilaterally upon phonation, flexes SCM and trapezius muscles symmetrically with full power, tongue protrudes midline, no atrophy or facial fasiculations present Cerebellar examination: Present: no dysmetria Results - Laboratory Findings CBC and BMP: 12/25/17 04:03 12/25/17 04:03 Abnormal lab findings: Abnormal lab results RDW 14.7 % (11.5-14.5) H 12/25/17 04:03 Plt Count 115 K/mcL (140-400) L 12/25/17 04:03 Nucleated RBCs/100 WBC 0.3 /100 WBC (0) H 12/25/17 04:03 Immature Plt Fraction 8.3 % (1.1-6.1) H 12/23/17 06:00 PT 13.3 Seconds (9.4-12.1) H 12/17/17 01:54 Carbon Dioxide 30 mEq/L (23-29) H 12/25/17 04:03 Glucose 118 mg/dL (70-105) H 12/25/17 04:03 POC Glucose 128 mg/dL (70-99) H 12/24/17 16:05 Phosphorus 2.0 mg/dL (2.7-4.5) L 12/21/17 18:29 AST 12 Units/L (13-39) L 12/25/17 04:03 Troponin I 0.06 ng/mL (< 0.04) H* 12/17/17 12:41 Serum Total Protein 5.4 g/dL (6.4-8.9) L 12/25/17 04:03 Albumin 3.4 g/dL (3.5-5.7) L 12/25/17 04:03 Globulin 2.0 g/dL (2.4-3.5) L 12/25/17 04:03 HDL Cholesterol 27 mg/dL (40-59) L 12/18/17 04:25 Cholesterol/HDL Ratio 5.6 (0-4.9) H 12/18/17 04:25 Total Testosterone 107 ng/dL (280-1100) L 12/18/17 04:25 Ur Specific [place] 1.030 (1.010-1.025) H 12/17/17 05:38 CSF Tot Nucleated Cells 167 TNC/mcL (0-5) H* 12/19/17 13:01 CSF Total Protein 104 mg/dL (15-45) H 12/19/17 13:01 Vancomycin Trough 20 mcg/mL (5-10) H 12/21/17 01:07 Consult Discharge Plan - Plan Referrals: Maxine Delatorre, PATCH MACHINE OPERATOR [Primary Care Provider] -
--- NOTE | 2017-12-25 11:27 | Infectious Disease Progress No ---
Date of Encounter: 12/25/17 Time of Encounter: 11:00 - Assessment and Plan (1) Sepsis Current Visit: Yes Status: Resolved Severe sepsis: 3 sepsis criteria noted on admission with acute kidney injury and elevated troponin. 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 White blood cell count has normalized. Afebrile. Tachycardia and tachypnea have resolved. Mental status appears improved, but not back to baseline. Blood cultures drawn 2 sets from peripheral stick 12/17/17 are negative 2 sets. Repeat blood cultures drawn on 12/17/17 from the patient's A-port are negative 2 sets. Additional blood cultures drawn 12/21/17 x2 sets peripherally and x 2 sets from a-port are NGTD. Flu antigen swab was negative. RIP was negative. Chest x-ray showed right lung pleural parenchymal abnormality favored to be chronic in post treatment, but superimposed pneumonia cannot be excluded. CT abdomen and pelvis was negative for acute abnormality. CT and MRI of the head were also negative. CT chest negative for infectious etiology. Doxycycline started by the primary team over the weekend. Qualifiers: Sepsis type: sepsis due to unspecified organism Qualified Code(s): A41.9 - Sepsis, unspecified organism (2) Meningoencephalitis Current Visit: Yes Status: Acute Causative organism: Unclear, but likely viral vs autoimmune. CT and MRI of the head are both negative for acute abnormality. Neurology consulted. Appreciate assistance. Attempted LP at bedside, but unsuccessful. Status post LP 12/19/17 by interventional radiology. Pleocytosis with lymphocytic predominance noted. CSF gram stain negative, culture is negative. HSV and VZV PCR are negative. Check cryptococcal antigen.--> negative. CSF Borrelia antibody negative. Lyme antibody testing ordered by the primary team and is negative. Repeat MRI ordered by the neuro team is negative. Continue doxycycline 100mg PO BID for now although there is no evidence of tick-borne illness based on workup/testing. (day 4) Complete a 7 day course of doxycycline, then discontinue. (3) Acute encephalopathy Current Visit: Yes Status: Acute Secondary to meningoencephalitis. Improved. Continue to monitor closely. (4) Pneumonia Current Visit: Yes Status: Ruled-out Chest x-ray showed right lung pleural parenchymal abnormality failure to be chronic and posttreatment related when compared to prior imaging, but difficult to exclude superimposed acute infectious airspace disease. CT chest negative for PNA. Check respiratory infectious panel.--> negative. Qualifiers: Pneumonia type: due to unspecified organism Laterality: right Lung location: lower lobe of lung Qualified Code(s): J18.1 - Lobar pneumonia, unspecified organism (5) [id number] kidney injury Current Visit: Yes Status: Resolved Likely secondary to sepsis. Improved. Continue to trend. Monitor renal function and dose adjust antibiotics. Avoid nephrotoxins as able. Qualifiers: Acute renal failure type: unspecified Chronic kidney disease stage: stage 2 (mild) Qualified Code(s): N17.9 - Acute kidney failure, unspecified; N18.2 - Chronic kidney disease, stage 2 (mild) (6) Lightheaded Current Visit: Yes Status: Resolved Likely secondary to sepsis. CT and MRI of the head are both negative for acute abnormality. Neurology evaluation noted and appreciated. Resolved. (7) Elevated troponin Current Visit: Yes Status: Acute Troponins elevated at 0.07, 0.08, 0.06. The patient denies any chest pain. Further workup and management per the primary team. (8) CHF (congestive heart failure) Current Visit: Yes Status: Chronic Qualifiers: Heart failure type: unspecified Heart failure chronicity: chronic Qualified Code(s): I50.9 - Heart failure, unspecified (9) CKD (chronic kidney disease) Current Visit: No Status: Chronic Qualifiers: Chronic kidney disease stage: stage 3 (moderate) Qualified Code(s): N18.3 - Chronic kidney disease, stage 3 (moderate) (10) Metastatic primary lung cancer Current Visit: Yes Status: Acute Diagnosed in 2013 with primary lung adenocarcinoma. Remote history of right upper lobe lobectomy. Positive for pulmonary nodules with evidence of metastatic disease in 2015. Status post wedge resection of the right lung nodules 4. Started on Nivolumab [id number] in December 2016. Transitioned to Q4 week dosing in June 2017. Last dose 12/12/17. Hem/Onc consulted and following. Qualifiers: Laterality: right Qualified Code(s): C34.91 - Malignant neoplasm of unspecified part of right bronchus or lung (11) Morbid obesity with BMI of 40.0-44.9, adult Current Visit: No Status: Chronic (12) Nausea and vomiting Current Visit: Yes Status: Resolved Etiology unclear: possible opiate withdraw. CT of the abdomen and pelvis negative for acute abnormality. Started on morphine gtt by the primary team since the patient was NPO. Appears improved. Management per the primary team. Qualifiers: Vomiting type: unspecified Vomiting Intractability: unspecified Qualified Code(s): R11.2 - Nausea with vomiting, unspecified (13) Myoclonic jerking Current Visit: Yes Status: Resolved Etiology unclear. Improved. Neurology consulted and following. - Subjective Interval history: Patient seen and examined sitting up in the bedside chair. No acute events noted overnight. Patient is awake, alert, oriented x 3. Denies fevers, chills, or rigors. Denies headache, dizziness, or neck pain. Denies chest pain or shortness of breath or cough. Denies nausea, vomiting, or diarrhea. Reports good output from his colostomy. Abdi catheter removed and voiding without a problem. Denies abdominal pain, urinary complaints. Reports he has been able to eat a little, but he appears to have altered taste sensation and he states nothing tastes good. Denies oral thrush or new skin lesions. Denies back, joint, or extremity pain. Assisted patient to standing to use the urinal. Gait steady. Infect Dis PN-Objective Data - Labs CBC & Chem 7: 12/26/17 03:30 12/26/17 03:30 Labs: Laboratory Results - last 24 hr 12/19/17 12/23/17 12/24/17 13:01 21:31 06:43 WBC RBC Hgb Hct MCV MCH MCHC RDW Plt Count MPV Immature Gran % Seg Neutrophils % Lymphocytes % Monocytes % Eosinophils % Basophils % Neutrophils # Lymphocytes # Monocytes # Eosinophils # Basophils # Nucleated RBCs/100 WBC Sodium Potassium Chloride Carbon Dioxide BUN Creatinine Est GFR ( Amer) Est GFR (Non-Af Amer) BUN/Creatinine Ratio Glucose POC Glucose 145 H 90 Calculated Osmolality Calcium Magnesium Total Bilirubin AST ALT Alkaline Phosphatase Serum Total Protein Albumin Globulin Albumin/Globulin Ratio CSF B. burgdorferi Ab 0.17 CSF B.burgdorferi IgG TNP CSF B.burgdorferi IgM TNP 12/24/17 12/24/17 12/25/17 11:45 16:05 04:03 WBC 7.9 RBC 4.76 Hgb 14.2 Hct 43.1 MCV 90.5 MCH 29.8 MCHC 32.9 RDW 14.7 H Plt Count 115 L MPV 11.6 Immature Gran % 1.5 Seg Neutrophils % 85.2 Lymphocytes % 7.4 Monocytes % 5.8 Eosinophils % 0.0 Basophils % 0.1 Neutrophils # 6.8 Lymphocytes # 0.6 Monocytes # 0.5 Eosinophils # 0.0 Basophils # 0.0 Nucleated RBCs/100 WBC 0.3 H Sodium Potassium Chloride Carbon Dioxide BUN Creatinine Est GFR ( Amer) Est GFR (Non-Af Amer) BUN/Creatinine Ratio Glucose POC Glucose 131 H 128 H Calculated Osmolality Calcium Magnesium Total Bilirubin AST ALT Alkaline Phosphatase Serum Total Protein Albumin Globulin Albumin/Globulin Ratio CSF B. burgdorferi Ab CSF B.burgdorferi IgG CSF B.burgdorferi IgM 12/25/17 04:03 WBC RBC Hgb Hct MCV MCH MCHC RDW Plt Count MPV Immature Gran % Seg Neutrophils % Lymphocytes % Monocytes % Eosinophils % Basophils % Neutrophils # Lymphocytes # Monocytes # Eosinophils # Basophils # Nucleated RBCs/100 WBC Sodium 140 Potassium 3.8 Chloride 103 Carbon Dioxide 30 H BUN 20 Creatinine 0.85 Est GFR ( Amer) > 60 Est GFR (Non-Af Amer) > 60 BUN/Creatinine Ratio 24 Glucose 118 H POC Glucose Calculated Osmolality 294 Calcium 9.2 Magnesium 1.7 Total Bilirubin 0.7 AST 12 L ALT 16 Alkaline Phosphatase 35 Serum Total Protein 5.4 L Albumin 3.4 L Globulin 2.0 L Albumin/Globulin Ratio 1.7 CSF B. burgdorferi Ab CSF B.burgdorferi IgG CSF B.burgdorferi IgM Cultures: Cultures 12/17/17 22:35 Blood Culture - Final Port System No growth. Final report. 12/17/17 22:35 Blood Culture - Final Port System No growth. Final report. 12/19/17 13:01 CSF Culture - Final Cerebral Spinal Fluid 12/17/17 07:10 Blood Culture - Final Peripheral Venipuncture No growth. Final report. 12/17/17 07:16 Blood Culture - Final Peripheral Venipuncture No growth. Final report. 12/21/17 08:35 Blood Culture - Preliminary Port System Culture is incubating and being continuously monitored for growth. Final report to follow. 12/21/17 08:35 Blood Culture - Preliminary Peripheral Venipuncture Culture is incubating and being continuously monitored for growth. Final report to follow. 12/21/17 08:35 Blood Culture - Preliminary Peripheral Venipuncture Culture is incubating and being continuously monitored for growth. Final report to follow. 12/21/17 08:35 Blood Culture - Preliminary Port System Culture is incubating and being continuously monitored for growth. Final report to follow. 12/18/17 11:53 Cryptococcal Antigen - Final Serum 12/17/17 10:05 Influenza Types A,B Antigen - Final Nasopharyngeal Serology 12/22/17 12/19/17 12/19/17 Range/Units 11:22 13:01 13:01 Urine Color (Yellow) Urine Clarity (Clear) Urine pH (5.0-8.0) pH Units Ur Specific [place] (1.010-1.025) Urine Protein (Neg-Trace) mg/dL Urine Glucose (UA) (Normal) mg/dL Urine Ketones (Negative) mg/dL Urine Blood (Negative) Urine Nitrite (Negative) Urine Bilirubin (Negative) Urine Urobilinogen (Normal) mg/dL Ur Leukocyte Esterase (Negative) Ur Culture Indicated? (NO) CSF Volume 11.0 mL CSF Appearance Clear (Clear) CSF Color Colorless (Colorless) CSF RBC < 0.002 (0.000 - 0.002) M/mcL CSF Tot Nucleated Cells 167 H* (0-5) TNC/mcL CSF Seg Neutrophils 5.0 % CSF Band Neutrophils % 4.0 % CSF Lymphocytes % 79.0 % CSF Monocytes % 12.0 % CSF Eosinophils % Test Not Performed CSF Basophils % Test Not Performed CSF Other Cells % Test Not Performed CSF Glucose 66 (40-70) mg/dL CSF Xanth Comm Not Observed (Not Observe) CSF Total Protein 104 H (15-45) mg/dL CSF B. burgdorferi Ab 0.17 (<=0.99) GERARDO CSF B.burgdorferi IgG TNP CSF B.burgdorferi IgM TNP Chlamy pneumoniae PCR (Not Detect) Adenovirus (PCR) (Not Detect) B. pertussis DNA (PCR) (Not Detect) B.parapertussis DNA PCR (Not Detect) Lyme Total Antibody Negative (Negative) Coronavirus OC43 (PCR) (Not Detect) Coronavirus HKU1 (PCR) (Not Detect) Coronavirus 229E (PCR) (Not Detect) Coronavirus NL63 (PCR) (Not Detect) Herpes Simplex Source CSF Herpes Simplex DNA PCR NOT DETECTED Human Metapneumovir PCR (Not Detect) Influenza A (H1) PCR (Not Detect) Influ A (H1N1/09) PCR (Not Detect) Influenza A (H3) PCR (Not Detect) Influenza A Untype (PCR) (Not Detect) Influenza Type B (PCR) (Not Detect) M.pneumoniae DNA (PCR) (Not Detect) Parainfluenza 1 (PCR) (Not Detect) Parainfluenza 2 (PCR) (Not Detect) Parainfluenza 3 (PCR) (Not Detect) Parainfluenza 4 (PCR) (Not Detect) RSV (PCR) (Not Detect) Entero/Rhino (PCR) (Not Detect) Varicella-Zoster Source CSF VZV DNA (PCR) NOT DETECTED 12/18/17 12/17/17 Range/Units 11:53 05:38 Urine Color Yellow (Yellow) Urine Clarity Clear (Clear) Urine pH 5.5 (5.0-8.0) pH Units Ur Specific [place] 1.030 H (1.010-1.025) Urine Protein Negative (Neg-Trace) mg/dL Urine Glucose (UA) Normal (Normal) mg/dL Urine Ketones Negative (Negative) mg/dL Urine Blood Negative (Negative) Urine Nitrite Negative (Negative) Urine Bilirubin Negative (Negative) Urine Urobilinogen Normal (Normal) mg/dL Ur Leukocyte Esterase Negative (Negative) Ur Culture Indicated? NO (NO) CSF Volume mL CSF Appearance (Clear) CSF Color (Colorless) CSF RBC (0.000 - 0.002) M/mcL CSF Tot Nucleated Cells (0-5) TNC/mcL CSF Seg Neutrophils % CSF Band Neutrophils % % CSF Lymphocytes % % CSF Monocytes % % CSF Eosinophils % CSF Basophils % CSF Other Cells % CSF Glucose (40-70) mg/dL CSF Xanth Comm (Not Observe) CSF Total Protein (15-45) mg/dL CSF B. burgdorferi Ab (<=0.99) GERARDO CSF B.burgdorferi IgG CSF B.burgdorferi IgM Chlamy pneumoniae PCR Not Detected (Not Detect) Adenovirus (PCR) Not Detected (Not Detect) B. pertussis DNA (PCR) Not Detected (Not Detect) B.parapertussis DNA PCR Not Detected (Not Detect) Lyme Total Antibody (Negative) Coronavirus OC43 (PCR) Not Detected (Not Detect) Coronavirus HKU1 (PCR) Not Detected (Not Detect) Coronavirus 229E (PCR) Not Detected (Not Detect) Coronavirus NL63 (PCR) Not Detected (Not Detect) Herpes Simplex Source Herpes Simplex DNA PCR Human Metapneumovir PCR Not Detected (Not Detect) Influenza A (H1) PCR Not Detected (Not Detect) Influ A (H1N1/09) PCR Not Detected (Not Detect) Influenza A (H3) PCR Not Detected (Not Detect) Influenza A Untype (PCR) Not Detected (Not Detect) Influenza Type B (PCR) Not Detected (Not Detect) M.pneumoniae DNA (PCR) Not Detected (Not Detect) Parainfluenza 1 (PCR) Not Detected (Not Detect) Parainfluenza 2 (PCR) Not Detected (Not Detect) Parainfluenza 3 (PCR) Not Detected (Not Detect) Parainfluenza 4 (PCR) Not Detected (Not Detect) RSV (PCR) Not Detected (Not Detect) Entero/Rhino (PCR) Not Detected (Not Detect) Varicella-Zoster Source VZV DNA (PCR) Exam - Constitutional Vitals: Temp Pulse Resp BP Pulse Ox 97.5 F L 74 18 139/94 100 12/25/17 07:36 12/25/17 07:36 12/25/17 07:36 12/25/17 07:36 12/25/17 07:36 General appearance: cooperative, no acute distress, obese - Head Head exam: Present: atraumatic, normal inspection, normocephalic - Eye Eye exam: Present: EOMI, normal appearance, PERRL Pupils: Present: normal accommodation - ENT ENT exam: Present: mucous membranes moist - Neck Neck exam: Present: normal inspection. Absent: meningismus - Respiratory Respiratory exam: Present: wheezes (Faint expiratory wheeze left posterior lobe.). Absent: rales, respiratory distress, rhonchi, tachypnea - Cardiovascular Cardiovascular exam: Present: RRR, +S1, +S2 - GI/Abdominal GI/Abdominal exam: Present: normal bowel sounds, soft. Absent: distended, tenderness Additional comments: Colostomy noted to the left abdomen with small amount of liquid brown stool noted in the collection bag. Stoma is mildly prolapsed, but beefy red and moist. - Extremities Exam Extremities exam: Absent: joint swelling, normal inspection (Left posterior calf dressing C/D/I.), pedal edema, tenderness - Neurological Exam Neurological exam: Present: alert, oriented X3, no focal deficits - Psychiatric Psychiatric exam: Present: normal affect, normal mood - Skin Skin exam: Present: dry, intact, normal color, warm Consult Discharge Plan - Plan Referrals: Maxine Delatorre, MULT AU MATIC OPERATOR [Primary Care Provider] - - Attending Attestation I examined this patient and my medical decision-making was reviewed with the Resident Physician. I agree with the documented findings, disposition and t reatment plan as described except to the extent set forth below. Clinically patient doing very well. Not sure what causes meningoencephalitis. If this could be viral still even though with negative respiratory infectious panel or it could be could be autoimmune secondary to immunotherapy. I did discuss with Dr. Taveras and Dr. Marti from neurology
--- NOTE | 2017-12-25 14:48 | Oncology Inp Progress Note ---
<EnriqueDarling Sylvester - Last Filed: 12/25/17 17:06> Date of Encounter: 12/25/17 Time of Encounter: 13:00 (1) Adenocarcinoma of lung Current Visit: Yes Status: Chronic Assessment and plan: Recurrent non-small cell lung cancer (adenocarcinoma), currently on second line of treatment with Nivolumab 480 mg IV Q4 weeks since 07/26/2017 (previously on Nivolumab 240 mg IV Q2 weeks initiated 01/08/2017). Last nivolumab treatment was 12/12/2017. Encephalitis does not show features of bacterial etiology. 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 Patient's treating oncologist Dr. Mast has been updated in regards to the above, further treatment decisions to be made per Dr. Mast's recommendations. Patient encouraged to continue to work with rehabilitation and nutrition services as he regains his strength so we may look at further treatment options in the future Qualifiers: Laterality: right Qualified Code(s): C34.91 - Malignant neoplasm of unspecified part of right bronchus or lung (2) Myoclonic jerking Current Visit: Yes Status: Acute Assessment and plan: Reviewed neurology noted. Etiology unclear EEG was no evidence of seizure activity Repeat MRI of the brain has been ordered---pending Klonopin started per neurology with improvement and near resolution in symptoms (3) Meningoencephalitis Current Visit: Yes Status: Acute Assessment and plan: Viral versus immune mediated Immune mediated encephalitis is of concern given current therapy with Nivolumab, we have initiated solumedrol 50 mg BID until other viral causes may be ruled out S/P LP with 167 TNC, lymphocyte predominance, total protein elevated at 104 CSF culture with many WBC, No observed Bacteria/Epithelial cells, Culture no growth cryptococcal antigen negative HSV/VZV CSF-negative He is empirically on acyclovir and steroid treatment 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 From an oncology standpoint continue solumedrol for possible immune mediated effect until we have confirmation of source Dr. Harper would like to decrease IV solumedrol dose to 40 mg BID and continue to monitor his response No viral source has been identified as noted above, there needs to be an individualized discussion with patients treating oncologist for decision to continue or discontinue immunotherapy Appreciate further recommendations per ID/Neuro Oncology: Subj Interval history: Mr. Manuel is sitting on the side of his bed. Family at bedside. He denies headache, visual changes, nausea, vomiting, neck pain, fever or chills. He is alert and oriented 3. Cognition seems to have improved today, he is having less difficulty with word finding. He is beginning to recall events that transpired over the past week and a half. No myoclonic jerking noted during assessment. He has been out of bed working with physical therapy but has not attempted ambulation. - Constitutional Vitals: Vital Signs Temp Pulse Resp BP Pulse Ox 12/25/17 11:38 97.6 F 78 17 115/73 98 12/25/17 07:36 97.5 F L 74 18 139/94 100 12/25/17 04:16 98.4 F 65 18 132/76 94 12/24/17 23:23 98.3 F 70 18 202/100 99 12/24/17 18:00 98.5 F 67 18 144/87 96 12/24/17 16:11 98.7 F 82 18 137/87 96 Intake and Output 12/24/17 12/25/17 12/25/17 23:59 07:59 15:59 Output Total 1030 / 1030 1450 / 1450 400 / 400 Balance -1030 / -1030 -1450 / -1450 -400 / -400 Output: Urine 1030 / 1030 1450 / 1450 400 / 400 Other: Stool Size Small Small Stool Consistency soft loose liquid Stool Characteristics Normal for Patient Stool Color Brown Weight 131.4 kg Blood Glucose* 128 92 154 General appearance: cooperative, no acute distress, no febrile - Head Head exam: Present: atraumatic - ENT ENT exam: Present: mucous membranes moist Additional comments: bilateral buccal lesions as previously noted - Neck Neck exam: Absent: meningismus - Respiratory Respiratory exam: Present: wheezes. Absent: respiratory distress - Cardiovascular Cardiovascular exam: Present: RRR, +S1, +S2 - GI/Abdominal GI/Abdominal exam: Present: normal bowel sounds, soft. Absent: tenderness Additional comments: Colostomy present with brown stool that appears normal - Extremities Exam Extremities exam: Absent: calf tenderness - Neurological Exam Neurological exam: Present: alert, oriented X3, no focal deficits, strengths equal and symetr throughout - Psychiatric Psychiatric exam: Present: normal affect, normal mood - Skin Skin exam: Present: dry, intact, normal color, warm Oncology: Obj Data - Labs CBC & Chem 7: 12/25/17 04:03 12/25/17 04:03 - ABG Interpretation ABG results: PT/INR, D-dimer PT 13.3 Seconds (9.4-12.1) H 12/17/17 01:54 Consult Discharge Plan - Plan Referrals: Maxine Delatorre, LAUNDRY SUPERVISOR [Primary Care Provider] - <Cynthia Gibson - Last Filed: 12/25/17 17:59> Oncology: Subj Interval history: Patient is feeling relatively well today close to his baseline. We will cut steroids 40 mg twice daily. I examined this patient and my medical decision-making was reviewed with the Advanced Practice Nurse, Darling Enrique. I agree with the documented findings, disposition and treatment plan as described except to the extent set forth below. - Constitutional Vitals: Vital Signs Temp Pulse Resp BP Pulse Ox 12/25/17 16:18 97.7 F 76 17 115/70 99 12/25/17 11:38 97.6 F 78 17 115/73 98 12/25/17 07:36 97.5 F L 74 18 139/94 100 12/25/17 04:16 98.4 F 65 18 132/76 94 12/24/17 23:23 98.3 F 70 18 202/100 99 12/24/17 18:00 98.5 F 67 18 144/87 96 Intake and Output 12/25/17 12/25/17 12/25/17 07:59 15:59 23:59 Output Total 1450 / 1450 400 / 400 Balance -1450 / -1450 -400 / -400 Output: Urine 1450 / 1450 400 / 400 Other: Stool Size Small Stool Consistency loose liquid Stool Characteristics Normal for Patient Stool Color Brown Blood Glucose* 92 154 Oncology: Obj Data - Labs CBC & Chem 7: 12/25/17 04:03 12/25/17 04:03 Labs: Laboratory Results - last 24 hr 12/19/17 12/23/17 12/24/17 13:01 21:31 06:43 WBC RBC Hgb Hct MCV MCH MCHC RDW Plt Count MPV Immature Gran % Seg Neutrophils % Lymphocytes % Monocytes % Eosinophils % Basophils % Neutrophils # Lymphocytes # Monocytes # Eosinophils # Basophils # Nucleated RBCs/100 WBC Sodium Potassium Chloride Carbon Dioxide BUN Creatinine Est GFR ( Amer) Est GFR (Non-Af Amer) BUN/Creatinine Ratio Glucose POC Glucose 145 H 90 Calculated Osmolality Calcium Magnesium Total Bilirubin AST ALT Alkaline Phosphatase Serum Total Protein Albumin Globulin Albumin/Globulin Ratio CSF B. burgdorferi Ab 0.17 CSF B.burgdorferi IgG TNP CSF B.burgdorferi IgM TNP 12/24/17 12/24/17 12/25/17 11:45 16:05 04:03 WBC 7.9 RBC 4.76 Hgb 14.2 Hct 43.1 MCV 90.5 MCH 29.8 MCHC 32.9 RDW 14.7 H Plt Count 115 L MPV 11.6 Immature Gran % 1.5 Seg Neutrophils % 85.2 Lymphocytes % 7.4 Monocytes % 5.8 Eosinophils % 0.0 Basophils % 0.1 Neutrophils # 6.8 Lymphocytes # 0.6 Monocytes # 0.5 Eosinophils # 0.0 Basophils # 0.0 Nucleated RBCs/100 WBC 0.3 H Sodium Potassium Chloride Carbon Dioxide BUN Creatinine Est GFR ( Amer) Est GFR (Non-Af Amer) BUN/Creatinine Ratio Glucose POC Glucose 131 H 128 H Calculated Osmolality Calcium Magnesium Total Bilirubin AST ALT Alkaline Phosphatase Serum Total Protein Albumin Globulin Albumin/Globulin Ratio CSF B. burgdorferi Ab CSF B.burgdorferi IgG CSF B.burgdorferi IgM 12/25/17 04:03 WBC RBC Hgb Hct MCV MCH MCHC RDW Plt Count MPV Immature Gran % Seg Neutrophils % Lymphocytes % Monocytes % Eosinophils % Basophils % Neutrophils # Lymphocytes # Monocytes # Eosinophils # Basophils # Nucleated RBCs/100 WBC Sodium 140 Potassium 3.8 Chloride 103 Carbon Dioxide 30 H BUN 20 Creatinine 0.85 Est GFR ( Amer) > 60 Est GFR (Non-Af Amer) > 60 BUN/Creatinine Ratio 24 Glucose 118 H POC Glucose Calculated Osmolality 294 Calcium 9.2 Magnesium 1.7 Total Bilirubin 0.7 AST 12 L ALT 16 Alkaline Phosphatase 35 Serum Total Protein 5.4 L Albumin 3.4 L Globulin 2.0 L Albumin/Globulin Ratio 1.7 CSF B. burgdorferi Ab CSF B.burgdorferi IgG CSF B.burgdorferi IgM - ABG Interpretation ABG results: PT/INR, D-dimer PT 13.3 Seconds (9.4-12.1) H 12/17/17 01:54 Inpatient Charges Provider: Dr. Lenny Gibson Follow up - Inpatient: [id number]
[2017-12-25] MEDS ORDERED: predniSONE 20 MG TABLET PO SCH ×2 (17:00→18:00)
[2017-12-26] MEDS: *HR* Heparin 5,000 UNIT/ML VIAL SQ SCH ×3 (00:15→17:00)
[2017-12-26 03:55] LABS: Basophils % 0.2 %; Hematocrit 43.8 % (37.5-50.1); Hemoglobin 14.7 g/dL (12.9-16.9); Immature Granulocytes % 1.9 % (0-4); Lymphocytes # 0.6 K/mcL (0.6-4.6); Lymphocytes % 6.6 %; Mean Corpuscular HGB Conc 33.6 g/dL (31.6-35.5); Mean Corpuscular Hemoglobin 30.4 pg (28.0-33.3); Mean Corpuscular Volume 90.7 fL (83.0-100.0); Mean Platelet Volume 10.9 fL (9.4-12.4); Monocytes # 0.4 K/mcL (0.0-1.3); Monocytes % 4.3 %; Neutrophils # 7.2 K/mcL (1.6-8.9); Nucleated Red Blood Cells 0.4 /100 WBC (0); Platelet Count 132 K/mcL (140-400); Red Blood Count 4.83 M/mcL (4.19-5.50); Red Cell Distribution Width 15.2 % (11.5-14.5)
[2017-12-26 04:05] LABS: Alanine Aminotransferase 19 Units/L (7-52); Albumin 3.3 g/dL (3.5-5.7); Albumin/Globulin Ratio 1.4 (1.1-2.2); Alkaline Phosphatase 34 Units/L (34-104); Aspartate Amino Transferase 11 Units/L (13-39); BUN/Creatinine Ratio 26 (6-26); Bilirubin,Total 0.8 mg/dL (0.3-1.0); Blood Urea Nitrogen 21 mg/dL (8-23); Calcium 9.1 mg/dL (8.6-10.3); Carbon Dioxide 29 mEq/L (23-29); Chloride 102 mEq/L (98-107); Globulin 2.3 g/dL (2.4-3.5); Glucose 132 mg/dL (70-105); Magnesium 1.6 mg/dL (1.6-2.6); Osmolality,Calculated 293 (280-300); Potassium 4.1 mEq/L (3.5-5.1); Sodium 139 mEq/L (136-145); Total Protein 5.6 g/dL (6.4-8.9); eGFR For Non-African Americans > 60 (> 60)
[2017-12-26] MEDS: *HR* Morphine Sulfate SR (12 HR) 15 MG TABLET.ER PO SCH (06:39)
--- NOTE | 2017-12-26 08:20 | Internal Med Progress Note ---
<Jazz Flores Sylvester - Last Filed: 12/26/17 10:31> Hospitalist Progress Note - Encounter Date of Encounter: 12/26/17 Time of Encounter: 08:18 - Subjective Interval History: 67M PMH Metastatic primary lung Ca presented with LH/Dizziness admitted with 3 sepsis criteria. Pt has had a waxing and waning mental status which was initi ally thought to be infectious v immune mediated encephalitis. RP, Flu, cryptococcal, lyme negative. BC from 12/17 showed no growth, repeat BC from 12/21 pending. CSF culture showed elevated WBC and protein consistent with immune mediated process. Pt currently on doxycycline 100mg BID, all other anti biotics de-escalated by ID. Pt not alert or oriented at this time. No acute events overnight - pt much more awake and alert, able to easily answer questions, A&O x3. PT recommends he be d/c to rehab facility to regain functional strength and pt has been accepted by [facility]. - Exam Vitals: Temp Pulse Resp BP Pulse Ox 97.6 F 59 17 123/81 97 12/26/17 07:30 12/26/17 07:30 12/26/17 07:30 12/26/17 07:30 12/26/17 07:30 Exam: Gen: Alert, awake, sitting up in chair. Easily engaged in conversation ENT: mucous membranes moist Cardio: RRR no m/r/g Pulm: Expiratory wheezes diffusely Abd: Normoactive bowel sounds, does not complain of pain on palpation Extremities: Bandage present on left posterior calf, scabbed abrasions healing on left posterior tibialis area, and on dorsal aspect of left foot. Right extr emity unremarkable. Skin: Warm, dry, intact Neuro: A&Ox3, mentating well. - Assessment and Plan (1) Encephalopathy Status: Acute Assessment and Plan: Likely viral vs immune mediated encephalopathy CT and MRI head revealed no acute intracranial abnormality, repeat brain MRI from 12/24/17 showed mild cerebral atrophy with no acute brain parenchymal abnormality. LP revealed cells 167, protein 101, LP cultures shows no growth to date EEG recording was consistent with a mild to moderate generalized encephalopathy. There is no evidence of epileptiform activity identified during the study. Etiologies of this interpretation might include toxic, metabolic, postictal, degenerative. Solu-medrol 50mg BID per oncology recommendations, switching to oral prednisone 120mg ID d/c Acyclovir, Flagyl, Cefepime Started doxycycline 12/22/17 while waiting for Lyme titers, which returned negative, but ID would like doxy continued Mental status now much improved, continue to monitor ID and Neurology following (2) Adenocarcinoma of lung Status: Chronic Assessment and Plan: followed by oncology (3) Sepsis Status: Resolved Assessment and Plan: Blood cultures from peripheral and port negative from 12/17/17, repeat cultures from 12/21/17 pending UA unremarkable Last lactic acid 0.8, repeat level 0.7 Cryptococcal antigen negative RIP, Flu swab negative Fever free for 48 hours ID following, have de-escalated all abx except doxycycline Duration of therapy depends on clinical course Monitor I & Os (4) Ulcer of left lower extremity with fat layer exposed Status: Acute Assessment and Plan: Followed by wound care while admitted wound care treating with collagen, per outpatient [facility] (5) Fever Status: Resolved Assessment and Plan: resolved (6) Vhiii-ry-fndyqfs kidney injury Status: Acute Assessment and Plan: Creat baseline in last year based on available records appears to be about 1., his baseline CKD stage is unknown Creat on admit 1.53, UA neg for infection Possibly dehydrated, IVFs given May be related to recent nivolumab, oncology following Continue to renally dose meds, gentle hydration, monitor output, avoid nephrotoxic agents Resumed home dose Lasix 20 mg by mouth daily (7) Lightheaded Status: Resolved Assessment and Plan: resolved (8) DVT prophylaxis Status: Acute Assessment and Plan: heparin 5000u TID SQ (9) Myoclonic jerking Status: Acute Assessment and Plan: Neurology following, recommended 0.5mg Klonopin BID (10) Opiate dependence Status: Chronic Assessment and Plan: Patient takes MS Contin twice a day and Morphine intermediate release 30 mg by mouth every 4 hours Patient previously on morphine pump number, wean down to 15 mg scheduled BID to prevent withdrawal. Continue oxycodone when necessary for breakthrough pain (11) CHF (congestive heart failure) Status: Chronic Assessment and Plan: Chronic in nature no current issues continue to monitor DVT Prophylaxis: Heparin subcutaneous TID - Time Spent with Patient Total time spent is greater than 50% in coordination of care (as documented) at patient's floor/unit and/or counseling patient: less than 15 minutes Plan of Care Discussed with: patient Internal Medicine: Result - Labs CBC & Chem 7: 12/26/17 03:30 12/26/17 03:30 Labs: Short CBC 12/26/17 Range/Units 03:30 WBC 8.3 (4.3-11.1) K/mcL Hgb 14.7 (12.9-16.9) g/dL Hct 43.8 (37.5-50.1) % Plt Count 132 L (140-400) K/mcL Neutrophils # 7.2 (1.6-8.9) K/mcL BMP 12/26/17 03:30 Sodium 139 Potassium 4.1 Chloride 102 Carbon Dioxide 29 BUN 21 Creatinine 0.81 Glucose 132 H Calcium 9.1 Liver Function 12/26/17 Range/Units 03:30 Total Bilirubin 0.8 (0.3-1.0) mg/dL AST 11 L (13-39) Units/L ALT 19 (7-52) Units/L Alkaline Phosphatase 34 (34-104) Units/L Albumin 3.3 L (3.5-5.7) g/dL - ABG Interpretation ABG results: PT/INR, D-dimer PT 13.3 Seconds (9.4-12.1) H 12/17/17 01:54 Consult Discharge Plan - Plan Instructions: Sepsis (DC) Referrals: Maxine Delatorre CNP [Primary Care Provider] - (patient is going to [facility]) Scotty Mast MD [Partnered Physician] - 01/09/18 1:30 pm (Please follow up as schedule...) Peter Marti DO [Partnered Physician] - 01/24/18 9:15 am (Please follow up as schedule...) Prescriptions: Morphine Immed Rel [Morphine Sulfate] 15 - 30 mg PO Q4HR PRN 1 Days #4 tab PRN Reason: Pain OxyCODONE/APAP 5/325 [Percocet 5/325 MG] 1 each PO Q6HR PRN 1 Days #4 tablet PRN Reason: Severe Pain Morphine Sulfate SR (12 HR) [MS Contin] 1 tab PO Q12HR 1 Days #2 tab clonazePAM [Klonopin] 0.5 mg PO BID 1 Days #2 tablet Morphine Sulfate SR (12 HR) [MS Contin] 15 mg PO Q12H 1 Days #2 tablet.er <Drabina-Eduardo,Kalyn M - Last Filed: 12/26/17 18:51> Hospitalist Progress Note - Exam Vitals: Temp Pulse Resp BP Pulse Ox 97.8 F 69 18 138/84 98 12/26/17 16:24 12/26/17 16:24 12/26/17 16:24 12/26/17 16:24 12/26/17 16:24 - Assessment and Plan (1) Hypertension Status: Chronic (2) Adenocarcinoma of lung Status: Chronic (3) Chronic respiratory failure Status: Chronic (4) Sepsis Status: Resolved (5) AQUILES on CPAP Status: Chronic (6) Ulcer of left lower extremity with fat layer exposed Status: Acute (7) Mwggz-zu-vwklldj kidney injury Status: Resolved (8) Acute metabolic encephalopathy Status: Acute (9) Meningoencephalitis Status: Acute (10) Opiate dependence Status: Chronic (11) Hypokalemia Status: Acute (12) Myoclonus Status: Acute (13) Dysgeusia Status: Acute - Time Spent with Patient Total time spent is greater than 50% in coordination of care (as documented) at patient's floor/unit and/or counseling patient: Internal Medicine: Result - Labs CBC & Chem 7: 12/26/17 03:30 12/26/17 03:30 Labs: Short CBC 12/26/17 Range/Units 03:30 WBC 8.3 (4.3-11.1) K/mcL Hgb 14.7 (12.9-16.9) g/dL Hct 43.8 (37.5-50.1) % Plt Count 132 L (140-400) K/mcL Neutrophils # 7.2 (1.6-8.9) K/mcL BMP 12/26/17 03:30 Sodium 139 Potassium 4.1 Chloride 102 Carbon Dioxide 29 BUN 21 Creatinine 0.81 Glucose 132 H Calcium 9.1 Liver Function 12/26/17 Range/Units 03:30 Total Bilirubin 0.8 (0.3-1.0) mg/dL AST 11 L (13-39) Units/L ALT 19 (7-52) Units/L Alkaline Phosphatase 34 (34-104) Units/L Albumin 3.3 L (3.5-5.7) g/dL - ABG Interpretation ABG results: PT/INR, D-dimer PT 13.3 Seconds (9.4-12.1) H 12/17/17 01:54 - Impressions Impressions Brain MRI 12/24/17 07:52 IMPRESSION: Mild cerebral atrophy. No acute brain parenchymal abnormality. D/ / 12/24/2017 10:46:39 Shani Hong MD / Nkechi Brownlee Interpreting Provider: Shani Hong MD - Attending Attestation I examined this patient and my medical decision-making was reviewed with the Re sident Physician Dr Flores. I agree with the documented findings, disposition and treatment plan as described except to the extent set forth below/add details below Mr Ricardo is currently admitted for acute encephalopathy/encephalitis with no identifiable infectious cause and suspicion of auto immunie cause related to cancer treatment. He has had waxing and waning mental status that has overall improved this admission. He was followed closely by neurology, oncology and ID> awake in chair, pleasant and no confusion this morning. Eagerly awaiting to be able to dc to rehab. denies fevers, chills, nausea, emesis, huston. Feels clear minded today. 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 dispo- dc to rehab <SandraJazz - Last Filed: 12/26/17 10:31> (2) Adenocarcinoma of lung Qualifiers: Laterality: right Qualified Code(s): C34.91 - Malignant neoplasm of unspecified part of right bronchus or lung (3) Sepsis Qualifiers: Sepsis type: sepsis due to unspecified organism Qualified Code(s): A41.9 - Sepsis, unspecified organism (5) Fever Qualifiers: Fever type: unspecified Qualified Code(s): R50.9 - Fever, unspecified (6) Ebsod-xb-srpenlg kidney injury Qualifiers: Acute renal failure type: unspecified Chronic kidney disease stage: stage 2 (mild) Qualified Code(s): N17.9 - Acute kidney failure, unspecified; N18.2 - Chronic kidney disease, stage 2 (mild) (10) Opiate dependence Qualifiers: Substance use status: uncomplicated Qualified Code(s): F11.20 - Opioid dependence, uncomplicated <Kalyn Nixon - Last Filed: 12/26/17 18:51> (1) Hypertension Qualifiers: Hypertension type: essential hypertension Qualified Code(s): I10 - Essential (primary) hypertension (2) Adenocarcinoma of lung Qualifiers: Laterality: right Qualified Code(s): C34.91 - Malignant neoplasm of unspecified part of right bronchus or lung (3) Chronic respiratory failure Qualifiers: Respiratory failure complication: hypoxia Qualified Code(s): J96.11 - Chronic respiratory failure with hypoxia (4) Sepsis Qualifiers: Sepsis type: sepsis due to unspecified organism Qualified Code(s): A41.9 - Sepsis, unspecified organism (7) Iwrbm-nw-zzwoitw kidney injury Qualifiers: Acute renal failure type: unspecified Chronic kidney disease stage: stage 2 (mild) Qualified Code(s): N17.9 - Acute kidney failure, unspecified; N18.2 - Chronic kidney disease, stage 2 (mild) (10) Opiate dependence Qualifiers: Substance use status: uncomplicated Qualified Code(s): F11.20 - Opioid dependence, uncomplicated
[2017-12-26] MEDS ORDERED: MethylPREDNISolone 40 MG/ML VIAL IVP SCH (09:00)
[2017-12-26] MEDS: Doxycycline 100 MG CAPSULE PO SCH (10:21)
[2017-12-26] MEDS: Aspirin Enteric Coated 81 MG Tablet PO SCH (10:21)
[2017-12-26] MEDS: clonazePAM 0.5 MG TABLET PO SCH (10:21)
--- NOTE | 2017-12-26 11:01 | Infectious Disease Progress No ---
Date of Encounter: 12/26/17 Time of Encounter: 09:40 - Assessment and Plan (1) Sepsis Status: Resolved Severe sepsis: 3 sepsis criteria noted on admission with acute kidney injury and elevated troponin. 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 White blood cell count has normalized. Afebrile. Tachycardia and tachypnea have resolved. Mental status appears improved, but not back to baseline. Blood cultures drawn 2 sets from peripheral stick 12/17/17 are negative 2 sets. Repeat blood cultures drawn on 12/17/17 from the patient's A-port are negative 2 sets. Additional blood cultures drawn 12/21/17 x2 sets peripherally and x 2 sets from a-port are negative. Flu antigen swab was negative. RIP was negative. Chest x-ray showed right lung pleural parenchymal abnormality favored to be chronic in post treatment, but superimposed pneumonia cannot be excluded. CT abdomen and pelvis was negative for acute abnormality. CT and MRI of the head were also negative. CT chest negative for infectious etiology. Doxycycline started by the primary team over the weekend. Qualifiers: Sepsis type: sepsis due to unspecified organism Qualified Code(s): A41.9 - Sepsis, unspecified organism (2) Meningoencephalitis Status: Acute Causative organism: Unclear, but likely viral vs autoimmune. CT and MRI of the head are both negative for acute abnormality. Neurology consulted. Appreciate assistance. Attempted LP at bedside, but unsuccessful. Status post LP 12/19/17 by interventional radiology. Pleocytosis with lymphocytic predominance noted. CSF gram stain negative, culture is negative. HSV and VZV PCR are negative. Check cryptococcal antigen.--> negative. CSF Borrelia antibody negative. Lyme antibody testing ordered by the primary team and is negative. Repeat MRI ordered by the neuro team is negative. Continue doxycycline 100mg PO BID for now although there is no evidence of tick- borne illness based on workup/testing. (day 5) Complete a 7 day course of doxycycline, then discontinue. (3) Acute encephalopathy Status: Acute Secondary to meningoencephalitis. Resolved. Continue to monitor closely. (4) Pneumonia Status: Ruled-out Chest x-ray showed right lung pleural parenchymal abnormality failure to be chronic and posttreatment related when compared to prior imaging, but difficult to exclude superimposed acute infectious airspace disease. CT chest negative for PNA. Check respiratory infectious panel.--> negative. Qualifiers: Pneumonia type: due to unspecified organism Laterality: right Lung location: lower lobe of lung Qualified Code(s): J18.1 - Lobar pneumonia, u nspecified organism (5) [id number] kidney injury Status: Resolved Likely secondary to sepsis. Improved. Continue to trend. Monitor renal function and dose adjust antibiotics. Avoid nephrotoxins as able. Qualifiers: Acute renal failure type: unspecified Chronic kidney disease stage: stage 2 (mild) Qualified Code(s): N17.9 - Acute kidney failure, unspecified; N18.2 - Chronic kidney disease, stage 2 (mild) (6) Lightheaded Status: Resolved Likely secondary to sepsis. CT and MRI of the head are both negative for acute abnormality. Neurology evaluation noted and appreciated. Resolved. (7) Elevated troponin Status: Acute Troponins elevated at 0.07, 0.08, 0.06. The patient denies any chest pain. Further workup and management per the primary team. (8) CHF (congestive heart failure) Status: Chronic Qualifiers: Heart failure type: unspecified Heart failure chronicity: chronic Qualified Code(s): I50.9 - Heart failure, unspecified (9) CKD (chronic kidney disease) Status: Chronic Qualifiers: Chronic kidney disease stage: stage 3 (moderate) Qualified Code(s): N18.3 - Chronic kidney disease, stage 3 (moderate) (10) Metastatic primary lung cancer Status: Acute Diagnosed in 2013 with primary lung adenocarcinoma. Remote history of right upper lobe lobectomy. Positive for pulmonary nodules with evidence of metastatic disease in 2015. Status post wedge resection of the right lung nodules 4. Started on Nivolumab [id number] in December 2016. Transitioned to Q4 week dosing in June 2017. Last dose 12/12/17. Hem/Onc consulted and following. Qualifiers: Laterality: right Qualified Code(s): C34.91 - Malignant neoplasm of unspecified part of right bronchus or lung (11) Morbid obesity with BMI of 40.0-44.9, adult Status: Chronic (12) Nausea and vomiting Status: Resolved Etiology unclear: possible opiate withdraw. CT of the abdomen and pelvis negative for acute abnormality. Resolved. Management per the primary team. Qualifiers: Vomiting type: unspecified Vomiting Intractability: unspecified Qualified Code(s): R11.2 - Nausea with vomiting, unspecified (13) Myoclonic jerking Status: Resolved Etiology unclear. Improved. Neurology consulted and following. - Subjective Interval history: Patient seen and examined sitting up in the bedside chair. No acute events noted overnight. Patient is awake, alert, oriented x 3, giving himself a bath. Denies fevers, chills, or rigors. Denies headache, dizziness, or neck pain. Denies chest pain or shortness of breath or cough. Denies nausea, vomiting, or diarrhea. Reports good output from his colostomy. Abdi catheter removed and voiding without a problem. Denies abdominal pain, urinary complaints. Reports he has been able to eat a little, but he appears to have altered taste sensation and he states nothing tastes good. Denies oral thrush or new skin lesions. Denies back, joint, or extremity pain. Assisted patient to standing to finish his bath. Gait steady. Infect Dis PN-Objective Data - Labs CBC & Chem 7: 12/26/17 03:30 12/26/17 03:30 Labs: Laboratory Results - last 24 hr 12/24/17 12/24/17 12/25/17 20:26 23:34 07:29 WBC RBC Hgb Hct MCV MCH MCHC RDW Plt Count MPV Immature Gran % Seg Neutrophils % Lymphocytes % Monocytes % Eosinophils % Basophils % Neutrophils # Lymphocytes # Monocytes # Eosinophils # Basophils # Nucleated RBCs/100 WBC Sodium Potassium Chloride Carbon Dioxide BUN Creatinine Est GFR ( Amer) Est GFR (Non-Af Amer) BUN/Creatinine Ratio Glucose POC Glucose 147 H 128 H 92 Calculated Osmolality Calcium Magnesium Total Bilirubin AST ALT Alkaline Phosphatase Serum Total Protein Albumin Globulin Albumin/Globulin Ratio 12/25/17 12/26/17 12/26/17 11:48 03:30 03:30 WBC 8.3 RBC 4.83 Hgb 14.7 Hct 43.8 MCV 90.7 MCH 30.4 MCHC 33.6 RDW 15.2 H Plt Count 132 L MPV 10.9 Immature Gran % 1.9 Seg Neutrophils % 87.0 Lymphocytes % 6.6 Monocytes % 4.3 Eosinophils % 0.0 Basophils % 0.2 Neutrophils # 7.2 Lymphocytes # 0.6 Monocytes # 0.4 Eosinophils # 0.0 Basophils # 0.0 Nucleated RBCs/100 WBC 0.4 H Sodium 139 Potassium 4.1 Chloride 102 Carbon Dioxide 29 BUN 21 Creatinine 0.81 Est GFR ( Amer) > 60 Est GFR (Non-Af Amer) > 60 BUN/Creatinine Ratio 26 Glucose 132 H POC Glucose 154 H Calculated Osmolality 293 Calcium 9.1 Magnesium 1.6 Total Bilirubin 0.8 AST 11 L ALT 19 Alkaline Phosphatase 34 Serum Total Protein 5.6 L Albumin 3.3 L Globulin 2.3 L Albumin/Globulin Ratio 1.4 Cultures: Cultures 12/21/17 08:35 Blood Culture - Final Peripheral Venipuncture No growth. Final report. 12/21/17 08:35 Blood Culture - Final Peripheral Venipuncture No growth. Final report. 12/21/17 08:35 Blood Culture - Final Port System No growth. Final report. 12/21/17 08:35 Blood Culture - Final Port System No growth. Final report. 12/17/17 22:35 Blood Culture - Final Port System No growth. Final report. 12/17/17 22:35 Blood Culture - Final Port System No growth. Final report. 12/19/17 13:01 CSF Culture - Final Cerebral Spinal Fluid 12/17/17 07:10 Blood Culture - Final Peripheral Venipuncture No growth. Final report. 12/17/17 07:16 Blood Culture - Final Peripheral Venipuncture No growth. Final report. 12/18/17 11:53 Cryptococcal Antigen - Final Serum 12/17/17 10:05 Influenza Types A,B Antigen - Final Nasopharyngeal Serology 12/22/17 12/19/17 12/19/17 Range/Units 11:22 13:01 13:01 Urine Color (Yellow) Urine Clarity (Clear) Urine pH (5.0-8.0) pH Units Ur Specific [place] (1.010-1.025) Urine Protein (Neg-Trace) mg/dL Urine Glucose (UA) (Normal) mg/dL Urine Ketones (Negative) mg/dL Urine Blood (Negative) Urine Nitrite (Negative) Urine Bilirubin (Negative) Urine Urobilinogen (Normal) mg/dL Ur Leukocyte Esterase (Negative) Ur Culture Indicated? (NO) CSF Volume 11.0 mL CSF Appearance Clear (Clear) CSF Color Colorless (Colorless) CSF RBC < 0.002 (0.000 - 0.002) M/mcL CSF Tot Nucleated Cells 167 H* (0-5) TNC/mcL CSF Seg Neutrophils 5.0 % CSF Band Neutrophils % 4.0 % CSF Lymphocytes % 79.0 % CSF Monocytes % 12.0 % CSF Eosinophils % Test Not Performed CSF Basophils % Test Not Performed CSF Other Cells % Test Not Performed CSF Glucose 66 (40-70) mg/dL CSF Xanth Comm Not Observed (Not Observe) CSF Total Protein 104 H (15-45) mg/dL CSF B. burgdorferi Ab 0.17 (<=0.99) GERARDO CSF B.burgdorferi IgG TNP CSF B.burgdorferi IgM TNP Chlamy pneumoniae PCR (Not Detect) Adenovirus (PCR) (Not Detect) B. pertussis DNA (PCR) (Not Detect) B.parapertussis DNA PCR (Not Detect) Lyme Total Antibody Negative (Negative) Coronavirus OC43 (PCR) (Not Detect) Coronavirus HKU1 (PCR) (Not Detect) Coronavirus 229E (PCR) (Not Detect) Coronavirus NL63 (PCR) (Not Detect) Herpes Simplex Source CSF Herpes Simplex DNA PCR NOT DETECTED Human Metapneumovir PCR (Not Detect) Influenza A (H1) PCR (Not Detect) Influ A (H1N1/09) PCR (Not Detect) Influenza A (H3) PCR (Not Detect) Influenza A Untype (PCR) (Not Detect) Influenza Type B (PCR) (Not Detect) M.pneumoniae DNA (PCR) (Not Detect) Parainfluenza 1 (PCR) (Not Detect) Parainfluenza 2 (PCR) (Not Detect) Parainfluenza 3 (PCR) (Not Detect) Parainfluenza 4 (PCR) (Not Detect) RSV (PCR) (Not Detect) Entero/Rhino (PCR) (Not Detect) Varicella-Zoster Source CSF VZV DNA (PCR) NOT DETECTED 12/18/17 12/17/17 Range/Units 11:53 05:38 Urine Color Yellow (Yellow) Urine Clarity Clear (Clear) Urine pH 5.5 (5.0-8.0) pH Units Ur Specific [place] 1.030 H (1.010-1.025) Urine Protein Negative (Neg-Trace) mg/dL Urine Glucose (UA) Normal (Normal) mg/dL Urine Ketones Negative (Negative) mg/dL Urine Blood Negative (Negative) Urine Nitrite Negative (Negative) Urine Bilirubin Negative (Negative) Urine Urobilinogen Normal (Normal) mg/dL Ur Leukocyte Esterase Negative (Negative) Ur Culture Indicated? NO (NO) CSF Volume mL CSF Appearance (Clear) CSF Color (Colorless) CSF RBC (0.000 - 0.002) M/mcL CSF Tot Nucleated Cells (0-5) TNC/mcL CSF Seg Neutrophils % CSF Band Neutrophils % % CSF Lymphocytes % % CSF Monocytes % % CSF Eosinophils % CSF Basophils % CSF Other Cells % CSF Glucose (40-70) mg/dL CSF Xanth Comm (Not Observe) CSF Total Protein (15-45) mg/dL CSF B. burgdorferi Ab (<=0.99) GERARDO CSF B.burgdorferi IgG CSF B.burgdorferi IgM Chlamy pneumoniae PCR Not Detected (Not Detect) Adenovirus (PCR) Not Detected (Not Detect) B. pertussis DNA (PCR) Not Detected (Not Detect) B.parapertussis DNA PCR Not Detected (Not Detect) Lyme Total Antibody (Negative) Coronavirus OC43 (PCR) Not Detected (Not Detect) Coronavirus HKU1 (PCR) Not Detected (Not Detect) Coronavirus 229E (PCR) Not Detected (Not Detect) Coronavirus NL63 (PCR) Not Detected (Not Detect) Herpes Simplex Source Herpes Simplex DNA PCR Human Metapneumovir PCR Not Detected (Not Detect) Influenza A (H1) PCR Not Detected (Not Detect) Influ A (H1N1/09) PCR Not Detected (Not Detect) Influenza A (H3) PCR Not Detected (Not Detect) Influenza A Untype (PCR) Not Detected (Not Detect) Influenza Type B (PCR) Not Detected (Not Detect) M.pneumoniae DNA (PCR) Not Detected (Not Detect) Parainfluenza 1 (PCR) Not Detected (Not Detect) Parainfluenza 2 (PCR) Not Detected (Not Detect) Parainfluenza 3 (PCR) Not Detected (Not Detect) Parainfluenza 4 (PCR) Not Detected (Not Detect) RSV (PCR) Not Detected (Not Detect) Entero/Rhino (PCR) Not Detected (Not Detect) Varicella-Zoster Source VZV DNA (PCR) - Impressions Impressions Brain MRI 12/24/17 07:52 IMPRESSION: Mild cerebral atrophy. No acute brain parenchymal abnormality. D/ / 12/24/2017 10:46:39 Shani Hong MD / Nkechi Brownlee Interpreting Provider: Shani Hong MD Exam - Constitutional Vitals: Temp Pulse Resp BP Pulse Ox 97.6 F 59 17 123/81 97 12/26/17 07:30 12/26/17 07:30 12/26/17 07:30 12/26/17 07:30 12/26/17 10:08 General appearance: cooperative, no acute distress, obese - Head Head exam: Present: atraumatic, normal inspection, normocephalic - Eye Eye exam: Present: EOMI, normal appearance, PERRL Pupils: Present: normal accommodation - ENT ENT exam: Present: mucous membranes moist - Neck Neck exam: Present: normal inspection. Absent: meningismus - Respiratory Respiratory exam: Present: CTAB. Absent: rales, respiratory distress, rhonchi, wheezes - Cardiovascular Cardiovascular exam: Present: RRR, +S1, +S2 - GI/Abdominal GI/Abdominal exam: Present: distended (obese), normal bowel sounds, soft. Absent: tenderness Additional comments: Colostomy noted to the left abdomen with liquid brown stool noted in the collection bag. Mild stoma prolapse noted with beefy red stoma. - Extremities Exam Extremities exam: Absent: joint swelling, normal inspection (Left posterior calf dressing C/D/I.), pedal edema, tenderness - Neurological Exam Neurological exam: Present: alert, oriented X3, no focal deficits - Psychiatric Psychiatric exam: Present: normal affect, normal mood - Skin Skin exam: Present: dry, intact, normal color, warm Consult Discharge Plan - Plan Instructions: Sepsis (DC) Referrals: Maxine Delatorre, JOSELO [Primary Care Provider] - (patient is going [facility]) Scotty Mast MD [Partnered Physician] - 01/09/18 1:30 pm (Please follow up as schedule...) Peter Marti DO [Partnered Physician] - 01/24/18 9:15 am (Please follow up as schedule...) - Attending Attestation I examined this patient and my medical decision-making was reviewed with the Resident Physician. I agree with the documented findings, disposition and treatment plan as described except to the extent set forth below.
--- NOTE | 2017-12-26 15:34 | Discharge Summary ---
<Jazz Flores - Last Filed: 12/26/17 17:06> - NOTES TO OUTPATIENT PROVIDER Notes to Outpatient Provider: Pt was placed on 0.5mg Klonopin BID for myoclonic jerking and will be following up outpt with Dr. Marti, Neurology, to see if this will be continued. Orders not resulted at time of discharge: Pending orders 12/17/17 05:38 Urinalysis Reflex Cult & Micro [URIN] Stat 12/17/17 18:57 Cortisol Fr,Ur Random or 24hr Routine 12/27/17 04:00 Complete Blood Count [HEME] AM 0400 Comprehensive Metabolic Panel AM 0400 Magnesium AM 0400 12/28/17 04:00 Complete Blood Count [HEME] AM 0400 Comprehensive Metabolic Panel AM 0400 Magnesium AM 0400 Date of Encounter: 12/26/17 Time of Encounter: 15:28 - Discharge Diagnosis (1) Encephalopathy Priority: Primary Status: Acute Assessment and Plan: Likely viral vs immune mediated encephalopathy CT and MRI head revealed no acute intracranial abnormality, repeat brain MRI from 12/24/17 showed mild cerebral atrophy with no acute brain parenchymal abnormality. LP revealed cells 167, protein 101, LP cultures shows no growth to date EEG recording was consistent with a mild to moderate generalized encephalopathy. There is no evidence of epileptiform activity identified during the study. Etiologies of this interpretation might include toxic, metabolic, postictal, degenerative. Oral prednisone Taper: 50mg BID x 5 days 40mg BID x 5 days 30mg BID x 5 days, continue until oncology follow-up appointment on 01/09/18 Continue doxycycline 100mg BID until 12/29/17 for a total of 7 days Mental status now much improved, continue to monitor Neurology follow up appointment scheduled (2) Adenocarcinoma of lung Priority: Secondary Status: Chronic Assessment and Plan: Follow up appointment with Dr. Mast Qualifiers: Laterality: right Qualified Code(s): C34.91 - Malignant neoplasm of unspecified part of right bronchus or lung (3) Sepsis Priority: Primary Status: Resolved Assessment and Plan: Resolved Qualifiers: Sepsis type: sepsis due to unspecified organism Qualified Code(s): A41.9 - Sepsis, unspecified organism (4) Ulcer of left lower extremity with fat layer exposed Priority: Secondary Status: Acute Assessment and Plan: Followed by [facility] Continue their recommendations (5) Fever Priority: Secondary Status: Resolved Assessment and Plan: Resolved Qualifiers: Fever type: unspecified Qualified Code(s): R50.9 - Fever, unspecified (6) Sfaws-hd-msaovrh kidney injury Priority: Secondary Status: Resolved Assessment and Plan: Resolved Qualifiers: Acute renal failure type: unspecified Chronic kidney disease stage: stage 2 (mild) Qualified Code(s): N17.9 - Acute kidney failure, unspecified; N18.2 - Chronic kidney disease, stage 2 (mild) (7) Lightheaded Priority: Secondary Status: Resolved Assessment and Plan: Resolved (8) DVT prophylaxis Priority: Secondary Status: Acute Assessment and Plan: Resolved (9) Myoclonic jerking Priority: Secondary Status: Resolved Assessment and Plan: Klonopin 0.5mg BID Follows with Dr. Marti, Neurology, who will see him outpatient and determine need for this medicine long-term (10) Opiate dependence Priority: Secondary Status: Chronic Assessment and Plan: Continue outpt regimen Qualifiers: Substance use status: uncomplicated Qualified Code(s): F11.20 - Opioid dependence, uncomplicated Hospital course: Mr. Ricardo is a 67 year old male that was admitted with AMS, nausea, abdominal pain after receiving immunomodulatory therapy on 12/12/17. There was concern for encephalitis of an infectious cause and several routes were explored to this end. He had negative: - Respiratory Panel - Cryptococcal Antigen - Lyme Titer - Flu Swab - CSF Culture - Urine Culture - Blood Cultures x 2 from peripheral site - Blood Cultures x 1 from port CSF did show increased WBC and protein, but failed to grow any pathogens. 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 He was placed on several antibiotics to cover for possible infectious etiologies including antifungals and antivirals as well as broad spectrum antibiotics against gram positive, gram negative, and anaerobes. Finally he was placed on IV steroids which coincided with an improvement in his mental status which ultimately led to his progression back to baseline. During the investigation of infectious etiologies, he developed fevers, but ultimately, no cause was elucidated from the studies. The fevers eventually subsided. Mr. Ricardo is now thought to be at mental baseline and could benefit from inpatient rehab to regain functional strength. He is amenable to this plan and expresses understanding. He was given an opportunity to ask questions and all of his concerns were addressed. Follow- up appointments will be made with Dr. Marti, Neurology, Dr. Mast, Oncology, and his primary care physician. Discharge discussed with: patient Time spent discussing smoking cessation with patient: 3 to 10 minutes - Time Spent with Patient Total time spent providing and/or coordinating discharge services: Less than 30 minutes - Discharge Medications Prescriptions: Morphine Immed Rel [Morphine Sulfate] 15 - 30 mg PO Q4HR PRN 1 Days #4 tab PRN Reason: Pain OxyCODONE/APAP 5/325 [Percocet 5/325 MG] 1 each PO Q6HR PRN 1 Days #4 tablet PRN Reason: Severe Pain Morphine Sulfate SR (12 HR) [MS Contin] 1 tab PO Q12HR 1 Days #2 tab clonazePAM [Klonopin] 0.5 mg PO BID 1 Days #2 tablet Morphine Sulfate SR (12 HR) [MS Contin] 15 mg PO Q12H 1 Days #2 tablet.er Home Medications: Lidocaine/Prilocaine CREAM [Emla] 1 gm TP ONCE PRN #1 tube 03/15/16 [Rx] Albuterol Sulfate [Albuterol Inhaler] 2 puff IH Q4-6H PRN #1 inhaler 04/20/16 [Rx] Pregabalin [Lyrica] 50 mg PO BID 30 Days #60 capsule 11/14/17 [Rx] Furosemide [Lasix] 20 mg PO DAILY PRN 12/18/17 [History] Escitalopram [Lexapro] 10 mg PO DAILY 12/19/17 [History] Terbinafine HCl 250 mg PO DAILY 12/19/17 [History] Triamcinolone Acet Dentl Paste [Kenalog In Orabase] 1 appl PO HS 12/19/17 [History] Albuterol Neb [Proventil Neb] 2.5 mg IH Q2H PRN inhsol 12/26/17 [Rx] Aspirin Enteric Coated [Aspirin EC] 81 mg PO DAILY tablet. 12/26/17 [Rx] Doxycycline 100 mg PO BID capsule 12/26/17 [Rx] Ipratropium/Albuterol Neb [Duoneb] 3 ml IH [id number] PRN inhsol 12/26/17 [Rx] Levothyroxine [Synthroid] 50 mcg PO DAILY@0630 tablet 12/26/17 [Rx] Metoprolol [Lopressor] 25 mg PO BID tablet 12/26/17 [Rx] Morphine Immed Rel [Morphine Sulfate] 15 - 30 mg PO Q4HR PRN 1 Days #4 tab 12/26/17 [Rx] Morphine Sulfate SR (12 HR) [MS Contin] 1 tab PO Q12HR 1 Days #2 tab 12/26/17 [Rx] Morphine Sulfate SR (12 HR) [MS Contin] 15 mg PO Q12H 1 Days #2 tablet.er 12/26/17 [Rx] OxyCODONE/APAP 5/325 [Percocet 5/325 MG] 1 each PO Q6HR PRN 1 Days #4 tablet 12/26/17 [Rx] clonazePAM [Klonopin] 0.5 mg PO BID 1 Days #2 tablet 12/26/17 [Rx] predniSONE [PredniSONE] 50 mg PO BIDWM tablet 12/26/17 [Rx] Allergies/Adverse Reactions: Allergy/AdvReac Type Severity Reaction Status Date / Time No Known Allergies Allergy Verified 12/12/17 13:35 Date of admission: 12/18/17 18:52 Primary care physician: Maxine Delatorre CNP Consults: 12/17/17 08:05 Consult to Oncology Hematology [CONS] Routine Consulting Provider: Kalyn Nixon Reason for Consult: Dr Lares pt, lung ca here w/ lightheadedness, generalized unwellness, forgetfulness; please eval for further treatment w/u recs Call Completed: Yes 12/18/17 08:35 Consult to Infectious Diseases [CONS] Routine Consulting Provider: [facility] Reason for Consult: Fever, unknown source of infection, recent Opdivo treatment Time Notified: 08:35 Call Completed: Yes 12/18/17 11:12 Consult to Neurology [CONS] Routine Consulting Provider: Neurology [facility] Reason for Consult: AMS, fever Time Notified: 11:12 Call Completed: Yes 12/19/17 15:04 Consult to Wound Care [CONS] Routine Reason for Consult: Left popliteal fossa non-healer ulcer Call Completed: No 12/19/17 16:34 Consult to Interpret Exam [CONS] Routine Consulting Provider: Anastasia Arcos I Consult to Interpret Exam: Interpret EEG 12/20/17 15:35 Consult to Occupational Therapy [CONS] Routine Comment: Evaluate, develop and implement POC Reason for Consult: eval for poss ecf, pre-cert Does patient have active BEDREST order?: No Is patient medically & hemodynamically stable?: Yes Consult to Physical Therapy [CONS] Routine Comment: Evaluate, develop and implement POC Reason for Consult: eval for poss ecf, pre-cert Does patient have active BEDREST order?: No Is patient medically & hemodynamically stable?: Yes 12/25/17 08:59 Consult to Medical Assistant Float [CONS] Routine Reason for SW Consult: needs ecf - Constitutional Vitals: Temp Pulse Resp BP Pulse Ox 97.9 F 79 18 113/72 97 12/26/17 11:32 12/26/17 11:32 12/26/17 11:32 12/26/17 11:32 12/26/17 11:32 General appearance: Present: A&O X 0 Exam: Gen: Alert, awake, sitting up in chair. Easily engaged in conversation ENT: mucous membranes moist Cardio: RRR no m/r/g Pulm: Expiratory wheezes diffusely Abd: Normoactive bowel sounds, does not complain of pain on palpation Extremities: Bandage present on left posterior calf, scabbed abrasions healing on left posterior tibialis area, and on dorsal aspect of left foot. Right extremity unremarkable. Skin: Warm, dry, intact Neuro: A&Ox3, mentating well. - Patient Status Disposition: Transfer Inpatient Rehab Fac Condition: Good Functional capacity at discharge: uses cane/walker Overall status at discharge: patient is progressing back to baseline - Discharge Instructions Instructions: Sepsis (DC) Follow Up With: Maxine Delatorre CNP [Primary Care Provider] - (patient is going to [facility]) Scotty Mast MD [Partnered Physician] - 01/09/18 1:30 pm (Please follow up as schedule...) Peter Matri DO [Partnered Physician] - 01/24/18 9:15 am (Please follow up as schedule...) - Diet and Activity Activity: as per physical therapy Diet: diabetic diet <Kalyn Nixon - Last Filed: 12/26/17 18:54> - NOTES TO OUTPATIENT PROVIDER Notes to Outpatient Provider: Neurology will determine cont need for Klonopin in outpt follow up. He requires 2 more days of treatment with oral doycycline on discharge with final doses to be given on 12/28/17. He was on IV steroids this admission. He has been changed to oral. These are going to require outpt taper as determined by his establish oncologist. Recommend taper for prednisone with 50 mg PO BID x5 days then decrease by 10 mg every 5 days (40 mg BID x5 days, 30 mg BID x5days...) He will fu with oncology next week Orders not resulted at time of discharge: Pending orders 12/17/17 05:38 Urinalysis Reflex Cult & Micro [URIN] Stat 12/17/17 18:57 Cortisol Fr,Ur Random or 24hr Routine 12/27/17 04:00 Complete Blood Count [HEME] AM 0400 Comprehensive Metabolic Panel AM 0400 Magnesium AM 0400 12/28/17 04:00 Complete Blood Count [HEME] AM 0400 Comprehensive Metabolic Panel AM 0400 Magnesium AM 0400 - Discharge Diagnosis (1) Hypertension Status: Chronic Qualifiers: Hypertension type: essential hypertension Qualified Code(s): I10 - Essential (primary) hypertension (2) Adenocarcinoma of lung Status: Chronic Qualifiers: Laterality: right Qualified Code(s): C34.91 - Malignant neoplasm of unspecified part of right bronchus or lung (3) Chronic respiratory failure Status: Chronic Qualifiers: Respiratory failure complication: hypoxia Qualified Code(s): J96.11 - Chronic respiratory failure with hypoxia (4) Sepsis Status: Resolved Qualifiers: Sepsis type: sepsis due to unspecified organism Qualified Code(s): A41.9 - Sepsis, unspecified organism (5) AQUILES on CPAP Status: Chronic (6) Ulcer of left lower extremity with fat layer exposed Status: Acute (7) Mnjjb-ca-txwhsfl kidney injury Status: Resolved Qualifiers: Acute renal failure type: unspecified Chronic kidney disease stage: stage 2 (mild) Qualified Code(s): N17.9 - Acute kidney failure, unspecified; N18.2 - Chronic kidney disease, stage 2 (mild) (8) Acute metabolic encephalopathy Status: Acute (9) Meningoencephalitis Status: Acute (10) Opiate dependence Status: Chronic Qualifiers: Substance use status: uncomplicated Qualified Code(s): F11.20 - Opioid dependence, uncomplicated (11) Hypokalemia Status: Acute (12) Myoclonus Status: Acute (13) Dysgeusia Status: Acute Hospital course: Mr. Ricardo is a 67 year old male - Time Spent with Patient Total time spent providing and/or coordinating discharge services: Date of admission: 12/18/17 18:52 Primary care physician: Maxine Delatorre CNP Consults: 12/17/17 08:05 Consult to Oncology Hematology [CONS] Routine Consulting Provider: Kalyn Nixon Reason for Consult: Dr Lares pt, lung ca here w/ lightheadedness, generalized unwellness, forgetfulness; please eval for further treatment w/u recs Call Completed: Yes 12/18/17 08:35 Consult to Infectious Diseases [CONS] Routine Consulting Provider: [facility] Reason for Consult: Fever, unknown source of infection, recent Opdivo treatment Time Notified: 08:35 Call Completed: Yes 12/18/17 11:12 Consult to Neurology [CONS] Routine Consulting Provider: Neurology [facility] Reason for Consult: AMS, fever Time Notified: 11:12 Call Completed: Yes 12/19/17 15:04 Consult to Wound Care [CONS] Routine Reason for Consult: Left popliteal fossa non-healer ulcer Call Completed: No 12/19/17 16:34 Consult to Interpret Exam [CONS] Routine Consulting Provider: Anastasia Arcos I Consult to Interpret Exam: Interpret EEG 12/20/17 15:35 Consult to Occupational Therapy [CONS] Routine Comment: Evaluate, develop and implement POC Reason for Consult: eval for poss ecf, pre-cert Does patient have active BEDREST order?: No Is patient medically & hemodynamically stable?: Yes Consult to Physical Therapy [CONS] Routine Comment: Evaluate, develop and implement POC Reason for Consult: eval for poss ecf, pre-cert Does patient have active BEDREST order?: No Is patient medically & hemodynamically stable?: Yes 12/25/17 08:59 Consult to Medical Assistant Float [CONS] Routine Reason for SW Consult: needs ecf - Constitutional Vitals: Temp Pulse Resp BP Pulse Ox 97.9 F 79 18 113/72 97 12/26/17 11:32 12/26/17 11:32 12/26/17 11:32 10/31/18 11:32 12/26/17 11:32 - Attending Attestation I examined this patient and my medical decision-making was reviewed with the Resident Physician Dr Flores. I agree with the documented findings, disposition and treatment plan as described except to the extent set forth below/add details below Mr Ricardo is currently admitted for acute encephalopathy/encephalitis with no identifiable infectious cause and suspicion of auto immunie cause related to cancer treatment. He has had waxing and waning mental status that has overall improved this admission. He was followed closely by neurology, oncology and ID> awake in chair, pleasant and no confusion this morning. Eagerly awaiting to be able to dc to rehab. denies fevers, chills, nausea, emesis, huston. Feels clear minded today. 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 dispo- dc to rehab
--- NOTE | 2017-12-26 15:53 | Physician Discharge Referral ---
<Jazz Flores Sylvester - Last Filed: 12/26/17 15:51> [facility] Referral Info Transfer To: Rehab Provider in Charge: Dr. Nixon Provider in Charge after Transfer: PCP Institutional Level of Care: Skilled - Diagnosis (1) Encephalopathy Priority: Primary Status: Acute (2) Adenocarcinoma of lung Priority: Secondary Status: Chronic (3) Sepsis Priority: Secondary Status: Resolved (4) Ulcer of left lower extremity with fat layer exposed Priority: Secondary Status: Acute (5) Fever Priority: Secondary Status: Resolved (6) Ufjbh-yh-pgxycad kidney injury Priority: Secondary Status: Resolved (7) Lightheaded Priority: Secondary Status: Resolved (8) DVT prophylaxis Priority: Secondary Status: Acute (9) Myoclonic jerking Priority: Secondary Status: Resolved (10) Opiate dependence Priority: Secondary Status: Chronic Prognosis: Good Aware of Diagnosis: Patient, Family Aware of Prognosis: Patient, Family - Transfer Medications Prescriptions: Morphine Immed Rel [Morphine Sulfate] 15 - 30 mg PO Q4HR PRN 1 Days #4 tab PRN Reason: Pain OxyCODONE/APAP 5/325 [Percocet 5/325 MG] 1 each PO Q6HR PRN 1 Days #4 tablet PRN Reason: Severe Pain Morphine Sulfate SR (12 HR) [MS Contin] 1 tab PO Q12HR 1 Days #2 tab clonazePAM [Klonopin] 0.5 mg PO BID 1 Days #2 tablet Morphine Sulfate SR (12 HR) [MS Contin] 15 mg PO Q12H 1 Days #2 tablet.er Home Medications: Lidocaine/Prilocaine CREAM [Emla] 1 gm TP ONCE PRN #1 tube 03/15/16 [Rx] Albuterol Sulfate [Albuterol Inhaler] 2 puff IH Q4-6H PRN #1 inhaler 04/20/16 [Rx] Pregabalin [Lyrica] 50 mg PO BID 30 Days #60 capsule 11/14/17 [Rx] Furosemide [Lasix] 20 mg PO DAILY PRN 12/18/17 [History] Escitalopram [Lexapro] 10 mg PO DAILY 12/19/17 [History] Terbinafine HCl 250 mg PO DAILY 12/19/17 [History] Triamcinolone Acet Dentl Paste [Kenalog In Orabase] 1 appl PO HS 12/19/17 [History] Albuterol Neb [Proventil Neb] 2.5 mg IH Q2H PRN inhsol 12/26/17 [Rx] Aspirin Enteric Coated [Aspirin EC] 81 mg PO DAILY tablet.dr 12/26/17 [Rx] Doxycycline 100 mg PO BID capsule 12/26/17 [Rx] Ipratropium/Albuterol Neb [Duoneb] 3 ml IH [id number] PRN inhsol 12/26/17 [Rx] Levothyroxine [Synthroid] 50 mcg PO DAILY@0630 tablet 12/26/17 [Rx] Metoprolol [Lopressor] 25 mg PO BID tablet 12/26/17 [Rx] Morphine Immed Rel [Morphine Sulfate] 15 - 30 mg PO Q4HR PRN 1 Days #4 tab 12/26/17 [Rx] Morphine Sulfate SR (12 HR) [MS Contin] 1 tab PO Q12HR 1 Days #2 tab 12/26/17 [Rx] Morphine Sulfate SR (12 HR) [MS Contin] 15 mg PO Q12H 1 Days #2 tablet.er 12/26/17 [Rx] OxyCODONE/APAP 5/325 [Percocet 5/325 MG] 1 each PO Q6HR PRN 1 Days #4 tablet 12/26/17 [Rx] clonazePAM [Klonopin] 0.5 mg PO BID 1 Days #2 tablet 12/26/17 [Rx] predniSONE [PredniSONE] 50 mg PO BIDWM tablet 12/26/17 [Rx] Allergies/Adverse Reactions: Allergy/AdvReac Type Severity Reaction Status Date / Time No Known Allergies Allergy Verified 12/12/17 13:35 - Respiratory Orders Smoking Cessation: Smoking cessation has been advised. For more information, call the [place] Tobacco Quit Line at 4-176-YXUZ-NOW. - Ancillary Orders May use pressure relief devices daily prn - Mobility Orders Other (PT/OT) - Rehabiliation Orders Rehab Potential: Good - Diet Orders Regular CERTIFICATION: I certify that the transfer of the above named patient to an Extended Care Facility is necessary for the continuing treatment of the diagnosis listed. The above information is true and accurate reflection of patient's current condition. Confidential - Redisclosure prohibited without a patient's written consent. <Kalyn Nixon - Last Filed: 12/26/17 18:55> - Diagnosis (1) Hypertension Status: Chronic (2) Adenocarcinoma of lung Status: Chronic (3) Chronic respiratory failure Status: Chronic (4) Sepsis Status: Resolved (5) AQUILES on CPAP Status: Chronic (6) Ulcer of left lower extremity with fat layer exposed Status: Acute (7) Eywpi-dt-jibygeu kidney injury Status: Resolved (8) Acute metabolic encephalopathy Status: Acute (9) Meningoencephalitis Status: Acute (10) Opiate dependence Status: Chronic (11) Hypokalemia Status: Acute (12) Myoclonus Status: Acute (13) Dysgeusia Status: Acute - Respiratory Orders Smoking Cessation: Smoking cessation has been advised. For more information, call the [place] Tobacco Quit Line at 4-005-WKQXNOW. CERTIFICATION: I certify that the transfer of the above named patient to an Extended Care Facility is necessary for the continuing treatment of the diagnosis listed. The above information is true and accurate reflection of patient's current condition. Confidential - Redisclosure prohibited without a patient's written consent.
[2017-12-26 16:26] VITALS: BP 138/84
--- NOTE | 2017-12-26 16:35 | Oncology Inp Progress Note ---
Date of Encounter: 12/26/17 Time of Encounter: 14:00 (1) Adenocarcinoma of lung Current Visit: Yes Status: Chronic Assessment and plan: Recurrent non-small cell lung cancer (adenocarcinoma), currently on second line of treatment with Nivolumab 480 mg IV Q4 weeks since 07/26/2017 (previously on Nivolumab 240 mg IV Q2 weeks initiated 01/08/2017). Last nivolumab treatment was 12/12/2017. Encephalitis does not show features of bacterial etiology. 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 Patient's treating oncologist Dr. Mast has been updated in regards to the above, further treatment decisions to be made per Dr. Mast's recommendations. Patient encouraged to continue to work with rehabilitation and nutrition services as he regains his strength so we may look at further treatment options in the future Patient will follow up as an outpatient for discussion on treatment options moving forward, appointment will be scheduled for next week, at this time oncology will otherwise sign off Qualifiers: Qualified Code(s): C34.91 - Malignant neoplasm of unspecified part of right bronchus or lung (2) Myoclonic jerking Current Visit: Yes Status: Resolved Assessment and plan: Reviewed neurology noted. Etiology unclear EEG was no evidence of seizure activity Repeat MRI of the brain has been ordered---pending Klonopin started per neurology with improvement and near resolution in symptoms He will follow up with neurology as an outpatient (3) Meningoencephalitis Current Visit: Yes Status: Acute Assessment and plan: Viral versus immune mediated Immune mediated encephalitis is of concern given current therapy with Nivolumab, we have initiated solumedrol 50 mg BID until other viral causes may be ruled out S/P LP with 167 TNC, lymphocyte predominance, total protein elevated at 104 CSF culture with many WBC, No observed Bacteria/Epithelial cells, Culture no growth cryptococcal antigen negative HSV/VZV CSF-negative He has completed his course of acyclovir Per ID: Continue doxycycline 100mg PO BID for now although there is no evidence of tick-borne illness based on workup/testing. 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 From an oncology standpoint continue prednisone for possible immune mediated effect No viral source has been identified as noted above, there needs to be an individualized discussion with patients treating oncologist for decision to continue or discontinue immunotherapy---> this will be done on an outpatient basis, We will arrange to follow up with patient next week Oncology: Subj Interval history: Mr. Ricardo continues to improve. Cognition is stable, he continues to have issues with recall but states he feels as though memory is improving. He is slowly recalling events over the past week and a half. He denies fever, chill, headache, visual changes, neck pain, nausea, vomiting or diarrhea. He is alert and oriented x3. - Constitutional Vitals: Vital Signs Temp Pulse Resp BP Pulse Ox 12/26/17 16:24 97.8 F 69 18 138/84 98 12/26/17 11:32 97.9 F 79 18 113/72 97 12/26/17 10:08 97 12/26/17 07:30 97.6 F 59 17 123/81 97 12/26/17 03:25 97.8 F 61 14 133/78 95 12/25/17 23:33 97.5 F L 63 18 143/79 94 12/25/17 18:41 97.6 F 75 18 127/84 96 Intake and Output 12/26/17 12/26/17 12/26/17 07:59 15:59 23:59 Intake Total 270 / 270 Output Total 550 / 550 550 / 550 Balance -550 / -550 -280 / -280 Intake: Oral 270 / 270 Output: Urine 550 / 550 300 / 300 Stool 250 / 250 Other: Meal Lunch Percent of Meal Consumed 60% General appearance: cooperative, no acute distress, no febrile - Head Head exam: Present: atraumatic - ENT ENT exam: Present: mucous membranes moist Additional comments: bilateral buccal lesions - Respiratory Respiratory exam: Present: rhonchi. Absent: respiratory distress - Cardiovascular Cardiovascular exam: Present: RRR, +S1, +S2 - GI/Abdominal GI/Abdominal exam: Present: normal bowel sounds, soft. Absent: tenderness Additional comments: colostomy - Extremities Exam Extremities exam: Absent: calf tenderness - Neurological Exam Neurological exam: Present: alert, oriented X3, no focal deficits, strengths equal and symetr throughout - Psychiatric Psychiatric exam: Present: normal affect, normal mood - Skin Skin exam: Present: dry, intact, normal color, warm Oncology: Obj Data - Labs CBC & Chem 7: 12/26/17 03:30 12/26/17 03:30 - Impressions Impressions Brain MRI 12/24/17 07:52 IMPRESSION: Mild cerebral atrophy. No acute brain parenchymal abnormality. D/ / 12/24/2017 10:46:39 Shani Hong MD / Nkechi Brownlee Interpreting Provider: Shani Hong MD - ABG Interpretation ABG results: PT/INR, D-dimer PT 13.3 Seconds (9.4-12.1) H 12/17/17 01:54 Consult Discharge Plan - Plan Referrals: Maxine Delatorre, ADVERTISING COORDINATOR [Primary Care Provider] - (patient is going to [facility]) Scotty Mast MD [Partnered Physician] - 01/09/18 1:30 pm (Please follow up as schedule...) Peter Marti DO [Partnered Physician] - 01/24/18 9:15 am (Please follow up as schedule...) Prescriptions: clonazePAM [Klonopin] 0.5 mg PO BID 1 Days #2 tablet
[2017-12-26] MEDS ORDERED: predniSONE 20 MG TABLET PO SCH (17:00)
[2017-12-27 21:43] LABS: Urine Collection Duration 24 hr; Urine Collection Volume 1159 mL; Urine Creatinine mg/d 2225 mg/d (800-2100)
== END 2017-12-26 18:16 | DRG 871 ==
LOC: 3BNU 00:42 → EMEROOARM 00:42 → SUATTDRO 06:26 → 3BNU 06:44 → 2ANU 12-18 02:44 → SUATTDRO 12-18 18:52
PROVIDERS: ADMIT Family Medicine; ATTEND Internal Medicine

== ENCOUNTER 2019-02-07 20:18 | Inpatient (IN) ==
[2019-02-07] MEDS ORDERED: methylPREDNISolone 125 MG/2 ML VIAL IVP ONE (20:24)
[2019-02-07] MEDS ORDERED: Ipratropium/Albuterol Neb 3 ML IH ONE (20:24)
[2019-02-07 21:09] LABS: Basophils % 0.3 %; Eosinophils % 0.3 %; Hemoglobin 19.3 g/dL (12.9-16.9); Immature Granulocytes % 0.5 % (0-4); Lymphocytes # 0.8 K/mcL (0.6-4.6); Lymphocytes % 21.2 %; Mean Corpuscular HGB Conc 33.5 g/dL (31.6-35.5); Mean Corpuscular Hemoglobin 28.8 pg (28.0-33.3); Mean Platelet Volume 11.2 fL (9.4-12.4); Monocytes # 0.1 K/mcL (0.0-1.3); Monocytes % 1.3 %; Platelet Count 259 K/mcL (140-400); Red Cell Distribution Width 14.6 % (11.5-14.5); Segmented Neutrophils % 76.4 %; White Blood Count 3.9 K/mcL (4.3-11.1)
[2019-02-07] MEDS: 0.9 % Sodium Chloride 1,000 ML IVC SCH ×2 (21:15→22:40)
[2019-02-07 21:26] LABS: Hematocrit 57.6 % (37.5-50.1)
[2019-02-07 21:30] LABS: Platelet Estimate Normal (Normal)
[2019-02-07 21:33] LABS: BUN/Creatinine Ratio 14 (6-26); Blood Urea Nitrogen 35 mg/dL (8-23); Calcium 9.6 mg/dL (8.6-10.3); Carbon Dioxide 20 mEq/L (23-29); Chloride 103 mEq/L (98-107); Glucose 219 mg/dL (70-105); Osmolality,Calculated 305 (280-300); Potassium 4.2 mEq/L (3.5-5.1); Sodium 140 mEq/L (136-145); Troponin I < 0.03 ng/mL (< 0.04); eGFR For African Americans 33 (> 60); eGFR For Non-African Americans 27 (> 60)
[2019-02-07] MEDS ORDERED: Cefepime HCl 1,000 MG in 0.9 % Sodium Chloride Mini Bag 100 ML IVPB STA (23:44)
[2019-02-08] MEDS: 0.9 % Sodium Chloride 1,000 ML IVC SCH ×4 (00:03→20:04)
[2019-02-08] MEDS ORDERED: Acetaminophen 325 MG TABLET PO PRN (04:16)
[2019-02-08] MEDS ORDERED: Naloxone 0.4 MG/ML INJ IVP PRN (04:16)
[2019-02-08 04:41] LABS: Hematocrit 53.2 % (37.5-50.1); Hemoglobin 17.7 g/dL (12.9-16.9); Immature Platelets 5.5 % (1.1-6.1); Mean Corpuscular HGB Conc 33.3 g/dL (31.6-35.5); Mean Corpuscular Volume 87.1 fL (83.0-100.0); Red Blood Count 6.11 M/mcL (4.19-5.50); Red Cell Distribution Width 14.1 % (11.5-14.5); White Blood Count 1.3 K/mcL (4.3-11.1)
[2019-02-08] MEDS: *HR* Promethazine 25 MG/ML VIAL IVP PRN ×2 (05:07→10:46)
[2019-02-08 05:13] LABS: Calcium 8.2 mg/dL (8.6-10.3); Potassium 4.2 mEq/L (3.5-5.1)
[2019-02-08 05:21] LABS: Adenovirus Not Detected (Not Detect); Bordetella Pertussis Not Detected (Not Detect); Chlamydophila pneumoniae Not Detected (Not Detect); Coronavirus 229E Not Detected (Not Detect); Coronavirus HKU1 Not Detected (Not Detect); Coronavirus NL63 Not Detected (Not Detect); Coronavirus OC43 Not Detected (Not Detect); Human Metapneumovirus Not Detected (Not Detect); Human Rhinovirus/Enterovirus Not Detected (Not Detect); Influenza A Subtype 2009 H1 Not Detected (Not Detect); Influenza A Untypeable Not Detected (Not Detect); Influenza B Not Detected (Not Detect); Mycoplasma pneumoniae Not Detected (Not Detect); Parainfluenza Virus 1 Not Detected (Not Detect); Parainfluenza Virus 2 Not Detected (Not Detect); Parainfluenza Virus 3 Not Detected (Not Detect); Parainfluenza Virus 4 Not Detected (Not Detect); Respiratory Syncytial Virus DETECTED (Not Detect)
[2019-02-08] MEDS ORDERED: Indomethacin 25 MG CAPSULE PO PRN (05:31)
[2019-02-08] MEDS ORDERED: Morphine Sulfate Immed Rel 15 MG TABLET PO PRN (05:31)
[2019-02-08] MEDS ORDERED: ALPRAZolam 0.5 MG TABLET PO PRN (05:31)
[2019-02-08] MEDS ORDERED: Furosemide 20 MG TABLET PO PRN (05:31)
[2019-02-08] MEDS ORDERED: Calcium Gluconate 1gm/50mL 1 GM/50 ML BAG IVPB ONE (05:39)
[2019-02-08] MEDS: Morphine Sulfate ER (12 HR) 15 MG TABLET.ER PO SCH ×2 (06:55→17:48)
[2019-02-08] MEDS: Piperacillin/Tazobactam 3.375 GM in 0.9 % Sodium Chloride Mini Bag 100 ML IVPB SCH ×2 (09:30→17:48)
[2019-02-08] MEDS: Azithromycin 500 MG in 0.9 % Sodium Chloride 250 ML IVPB SCH (13:31)
[2019-02-08] MEDS ORDERED: *HR* Heparin 5,000 UNIT/ML VIAL SQ SCH (14:00)
[2019-02-08] MEDS: Ipratropium/Albuterol Neb 3 ML IH SCH ×2 (15:38→19:30)
[2019-02-08] MEDS: MethylPREDNISolone 40 MG/ML VIAL IVP SCH (17:48)
[2019-02-08 21:24] LABS: Calcium 7.7 mg/dL (8.6-10.3); Magnesium 1.5 mg/dL (1.6-2.6); Phosphorous 2.7 mg/dL (2.7-4.5); Potassium 3.8 mEq/L (3.5-5.1)
[2019-02-09] MEDS: Ipratropium/Albuterol Neb 3 ML IH SCH ×6 (00:06→19:39)
[2019-02-09] MEDS: Piperacillin/Tazobactam 3.375 GM in 0.9 % Sodium Chloride Mini Bag 100 ML IVPB SCH ×3 (00:28→16:38)
[2019-02-09 04:37] LABS: Basophils % 1.6 %
[2019-02-09 04:38] LABS: Eosinophils # 0.1 K/mcL (0.0-0.6); Eosinophils % 18.8 %; Hematocrit 42.2 % (37.5-50.1); Hemoglobin 13.6 g/dL (12.9-16.9); Immature Granulocytes % 12.5 % (0-4); Lymphocytes # 0.2 K/mcL (0.6-4.6); Lymphocytes % 31.3 %; Mean Corpuscular HGB Conc 32.2 g/dL (31.6-35.5); Mean Corpuscular Hemoglobin 29.1 pg (28.0-33.3); Mean Corpuscular Volume 90.2 fL (83.0-100.0); Mean Platelet Volume 11.6 fL (9.4-12.4); Monocytes % 1.6 %; Neutrophils # 0.2 K/mcL (1.6-8.9); Red Blood Count 4.68 M/mcL (4.19-5.50); Red Cell Distribution Width 13.8 % (11.5-14.5); Segmented Neutrophils % 34.2 %
[2019-02-09 04:43] LABS: Platelet Count 93 K/mcL (140-400)
[2019-02-09 04:46] LABS: White Blood Count 0.6 K/mcL (4.3-11.1)
[2019-02-09 04:57] LABS: Calcium 7.4 mg/dL (8.6-10.3); Chol/HDL Ratio 5.9 (0-4.9); Magnesium 1.5 mg/dL (1.6-2.6); Potassium 3.8 mEq/L (3.5-5.1)
[2019-02-09 05:07] LABS: Ovalocytes 2+ (Not Present); Platelet Estimate Decreased (Normal)
[2019-02-09] MEDS: Morphine Sulfate ER (12 HR) 15 MG TABLET.ER PO SCH ×2 (05:14→17:32)
[2019-02-09] MEDS: MethylPREDNISolone 40 MG/ML VIAL IVP SCH ×2 (05:14→17:33)
[2019-02-09 05:58] LABS: VBG Ionized Calcium 1.06 mmol/L (1.15-1.35)
[2019-02-09] MEDS ORDERED: *HR* Enoxaparin 40 MG/0.4 ML SYRINGE SQ SCH (06:00)
[2019-02-09] MEDS: Azithromycin 500 MG in 0.9 % Sodium Chloride 250 ML IVPB SCH (12:41)
[2019-02-09] MEDS: *HR* Promethazine 25 MG/ML VIAL IVP PRN (17:32)
[2019-02-09] MEDS ORDERED: Budesonide Neb 0.25 MG/2 ML IH SCH (21:00)
[2019-02-09] MEDS ORDERED: Albuterol 2.5 MG/3 ML NEBULIZER AER SCH (22:00)
[2019-02-10] MEDS: Ipratropium/Albuterol Neb 3 ML IH SCH ×6 (00:04→20:16)
[2019-02-10] MEDS: Piperacillin/Tazobactam 3.375 GM in 0.9 % Sodium Chloride Mini Bag 100 ML IVPB SCH ×2 (00:11→08:17)
[2019-02-10] MEDS ORDERED: Ondansetron ODT 4 MG TAB.RAPDIS SL ONE ×2 (00:21→20:57)
[2019-02-10] MEDS ORDERED: Famotidine 20 MG TABLET PO ONE (05:01)
[2019-02-10 05:15] LABS: Magnesium 2.1 mg/dL (1.6-2.6); Phosphorous 2.5 mg/dL (2.7-4.5)
[2019-02-10 05:16] LABS: BUN/Creatinine Ratio 22 (6-26); Blood Urea Nitrogen 23 mg/dL (8-23); Calcium 7.7 mg/dL (8.6-10.3); Carbon Dioxide 24 mEq/L (23-29); Chloride 106 mEq/L (98-107); Glucose 147 mg/dL (70-105); Osmolality,Calculated 292 (280-300); Potassium 3.9 mEq/L (3.5-5.1); Sodium 138 mEq/L (136-145); eGFR For African Americans > 60 (> 60); eGFR For Non-African Americans > 60 (> 60)
[2019-02-10] MEDS: Morphine Sulfate ER (12 HR) 15 MG TABLET.ER PO SCH ×2 (05:34→18:12)
[2019-02-10] MEDS: MethylPREDNISolone 40 MG/ML VIAL IVP SCH (05:35)
[2019-02-10] MEDS: Folic Acid 1 MG TABLET PO SCH (08:17)
[2019-02-10] MEDS ORDERED: Azithromycin 500 MG in 0.9 % Sodium Chloride 250 ML IVPB SCH (09:00)
[2019-02-10] MEDS: Budesonide Neb 0.25 MG/2 ML IH SCH (11:19)
[2019-02-10 12:08] LABS: Red Cell Distribution Width 13.5 % (11.5-14.5)
[2019-02-10 12:09] LABS: Hematocrit 41.7 % (37.5-50.1); Hemoglobin 13.7 g/dL (12.9-16.9); Mean Corpuscular HGB Conc 32.9 g/dL (31.6-35.5); Mean Corpuscular Hemoglobin 28.5 pg (28.0-33.3); Mean Corpuscular Volume 86.7 fL (83.0-100.0); Mean Platelet Volume 11.3 fL (9.4-12.4); Red Blood Count 4.81 M/mcL (4.19-5.50)
[2019-02-10 12:18] LABS: Platelet Count 65 K/mcL (140-400)
[2019-02-10] MEDS ORDERED: Potassium Phosphate 44 MEQ in 0.9 % Sodium Chloride 250 ML IVPB ONE (12:36)
[2019-02-10 12:41] LABS: Lymphocytes # 0.5 K/mcL (0.6-4.6); Neutrophils # 0.4 K/mcL (1.6-8.9); Platelet Estimate Decreased (Normal); Reactive Lymphocytes Present (Not Present)
[2019-02-10] MEDS: levoFLOXacin 750 MG/150 ML 750 MG/150 ML BAG IVPB SCH (18:17)
[2019-02-10 18:42] LABS: Adenovirus F 40/41 PCR Not detected (Not detect); Astrovirus PCR Not detected (Not detect); C.difficile Toxin A/B Gene PCR Not detected (Not detect); Campylobacter by PCR Not detected (Not detect); Cryptosporidium by PCR Not detected (Not detect); Cyclospora cayetanensis PCR Not detected (Not detect); E. coli O157 by PCR Not detected (Not detect); Entamoeba histolytica PCR Not detected (Not detect); Enteroaggregative E.coli(EAEC) Not detected (Not detect); Enteropathogenic E.coli(EPEC) Not detected (Not detect); Enterotoxigenic E.coli (ETEC) Not detected (Not detect); Giardia lamblia PCR Not detected (Not detect); Norovirus GI/GII PCR DETECTED (Not detect); Plesiomonas shigelloides PCR Not detected (Not detect); Salmonella PCR Not detected (Not detect); Shig/EnteroinvasiveE coli EIEC Not detected (Not detect); Shigalike tox-prod E coli STEC Not detected (Not detect); Vibrio PCR Not detected (Not detect); Vibrio cholerae PCR Not detected (Not detect); Yersinia enterocolitica PCR Not detected (Not detect)
[2019-02-10 18:43] LABS: Rotavirus A PCR Not detected (Not detect); Sapovirus PCR Not detected (Not detect)
[2019-02-10] MEDS: *HR* Promethazine 25 MG/ML VIAL IVP PRN (23:59)
[2019-02-11] MEDS: Budesonide Neb 0.25 MG/2 ML IH SCH (00:03)
[2019-02-11] MEDS: Ipratropium/Albuterol Neb 3 ML IH SCH ×2 (00:03→03:49)
[2019-02-11] MEDS: Morphine Sulfate Immed Rel 15 MG TABLET PO PRN (01:50)
[2019-02-11 04:11] LABS: Hematocrit 41.8 % (37.5-50.1); Lymphocytes # 0.3 K/mcL (0.6-4.6); Mean Corpuscular HGB Conc 33.5 g/dL (31.6-35.5); Mean Corpuscular Hemoglobin 28.9 pg (28.0-33.3); Mean Corpuscular Volume 86.2 fL (83.0-100.0); Mean Platelet Volume 11.8 fL (9.4-12.4); Monocytes # 0.1 K/mcL (0.0-1.3); Red Blood Count 4.85 M/mcL (4.19-5.50); Red Cell Distribution Width 13.4 % (11.5-14.5); White Blood Count 1.1 K/mcL (4.3-11.1)
[2019-02-11 04:12] LABS: Platelet Count 58 K/mcL (140-400)
[2019-02-11] MEDS ORDERED: Acetaminophen IV 500 MG/50 ML INFUS..BTL IVPB ONE (04:14)
[2019-02-11] MEDS ORDERED: Ipratropium/Albuterol Neb 3 ML IH PRN (04:29)
[2019-02-11 04:48] LABS: Neutrophils # 0.6 K/mcL (1.6-8.9); Platelet Estimate Decreased (Normal); Reactive Lymphocytes Present (Not Present)
[2019-02-11] MEDS: Morphine Sulfate ER (12 HR) 15 MG TABLET.ER PO SCH ×2 (05:34→18:36)
[2019-02-11 06:28] LABS: Alanine Aminotransferase 23 Units/L (7-52); Albumin 3.1 g/dL (3.5-5.7); Albumin/Globulin Ratio 1.6 (1.1-2.2); Alkaline Phosphatase 27 Units/L (34-104); Aspartate Amino Transferase 18 Units/L (13-39); BUN/Creatinine Ratio 23 (6-26); Bilirubin,Total 1.5 mg/dL (0.3-1.0); Blood Urea Nitrogen 23 mg/dL (8-23); Calcium 8.5 mg/dL (8.6-10.3); Carbon Dioxide 28 mEq/L (23-29); Chloride 104 mEq/L (98-107); Glucose 130 mg/dL (70-105); Osmolality,Calculated 305 (280-300); Potassium 3.6 mEq/L (3.5-5.1); Sodium 145 mEq/L (136-145); Total Protein 5.1 g/dL (6.4-8.9); eGFR For African Americans > 60 (> 60); eGFR For Non-African Americans > 60 (> 60)
[2019-02-11] MEDS ORDERED: Budesonide Neb 0.25 MG/2 ML IH PRN (07:40)
[2019-02-11] MEDS: levoFLOXacin 750 MG/150 ML 750 MG/150 ML BAG IVPB SCH (08:57)
[2019-02-11] MEDS: predniSONE 20 MG TABLET PO SCH (08:58)
[2019-02-11] MEDS: 0.9 % Sodium Chloride 1,000 ML IVC SCH ×2 (08:58→18:47)
[2019-02-11] MEDS: Folic Acid 1 MG TABLET PO SCH (08:58)
[2019-02-11] MEDS ORDERED: MethylPREDNISolone 40 MG/ML VIAL IVP ONE (09:45)
[2019-02-11] MEDS ORDERED: Levothyroxine Sodium 100 MCG VIAL IVP ONE (09:47)
[2019-02-11] MEDS: Morphine Sulfate 2 MG/ML SYRINGE IVP PRN (18:04)
[2019-02-11] MEDS ORDERED: Ketorolac 15 MG/ML VIAL IVP ONE (20:58)
[2019-02-12] MEDS: Morphine Sulfate 2 MG/ML SYRINGE IVP PRN (01:56)
[2019-02-12 04:48] LABS: Mean Corpuscular HGB Conc 33.4 g/dL (31.6-35.5)
[2019-02-12 04:50] LABS: Basophils % 0.4 %; Hematocrit 38.3 % (37.5-50.1); Hemoglobin 12.8 g/dL (12.9-16.9); Immature Granulocytes % 3.6 % (0-4); Immature Platelets 7.2 % (1.1-6.1); Lymphocytes # 0.4 K/mcL (0.6-4.6); Lymphocytes % 15.4 %; Mean Corpuscular Hemoglobin 29.1 pg (28.0-33.3); Monocytes # 0.2 K/mcL (0.0-1.3); Monocytes % 6.8 %; Neutrophils # 2.1 K/mcL (1.6-8.9); Red Cell Distribution Width 13.3 % (11.5-14.5); Segmented Neutrophils % 73.8 %; White Blood Count 2.8 K/mcL (4.3-11.1)
[2019-02-12 04:56] LABS: Platelet Count 27 K/mcL (140-400)
[2019-02-12 05:01] LABS: Alanine Aminotransferase 50 Units/L (7-52); Albumin 2.8 g/dL (3.5-5.7); Albumin/Globulin Ratio 1.6 (1.1-2.2); Alkaline Phosphatase 45 Units/L (34-104); Aspartate Amino Transferase 39 Units/L (13-39); BUN/Creatinine Ratio 23 (6-26); Bilirubin,Total 2.8 mg/dL (0.3-1.0); Blood Urea Nitrogen 25 mg/dL (8-23); Calcium 8.4 mg/dL (8.6-10.3); Carbon Dioxide 30 mEq/L (23-29); Chloride 103 mEq/L (98-107); Globulin 1.7 g/dL (2.4-3.5); Glucose 92 mg/dL (70-105); Magnesium 1.6 mg/dL (1.6-2.6); Osmolality,Calculated 302 (280-300); Phosphorous 2.3 mg/dL (2.7-4.5); Potassium 3.7 mEq/L (3.5-5.1); Sodium 144 mEq/L (136-145); Total Protein 4.5 g/dL (6.4-8.9); eGFR For African Americans > 60 (> 60); eGFR For Non-African Americans > 60 (> 60)
[2019-02-12 05:29] LABS: Platelet Estimate Decreased (Normal); Reactive Lymphocytes Present (Not Present)
[2019-02-12] MEDS: Morphine Sulfate ER (12 HR) 15 MG TABLET.ER PO SCH ×2 (05:40→17:10)
[2019-02-12] MEDS ORDERED: Potassium Phosphate 44 MEQ in 0.9 % Sodium Chloride 250 ML IVPB ONE (07:47)
[2019-02-12] MEDS: Morphine Sulfate Immed Rel 15 MG TABLET PO PRN ×2 (08:40→20:42)
[2019-02-12] MEDS: Folic Acid 1 MG TABLET PO SCH (08:40)
[2019-02-12] MEDS: predniSONE 20 MG TABLET PO SCH (08:40)
[2019-02-12] MEDS: levoFLOXacin 750 MG/150 ML 750 MG/150 ML BAG IVPB SCH (08:41)
[2019-02-12] MEDS ORDERED: Ergocalciferol (VIT D2) 50,000 UNIT (1.25MG) CAP PO SCH (09:00)
[2019-02-12] MEDS: 0.9 % Sodium Chloride 1,000 ML IVC SCH ×2 (13:13→23:50)
[2019-02-13] MEDS: *HR* Promethazine 25 MG/ML VIAL IVP PRN (04:50)
[2019-02-13 05:06] LABS: Basophils % 0.3 %; Eosinophils % 0.3 %; Mean Corpuscular Volume 89.4 fL (83.0-100.0); Red Cell Distribution Width 13.2 % (11.5-14.5)
[2019-02-13 05:08] LABS: Hematocrit 38.8 % (37.5-50.1); Hemoglobin 12.5 g/dL (12.9-16.9); Immature Granulocytes % 5.9 % (0-4); Immature Platelets 9.4 % (1.1-6.1); Lymphocytes # 0.4 K/mcL (0.6-4.6); Lymphocytes % 11.5 %; Mean Corpuscular HGB Conc 32.2 g/dL (31.6-35.5); Mean Corpuscular Hemoglobin 28.8 pg (28.0-33.3); Mean Platelet Volume 13.4 fL (9.4-12.4); Monocytes # 0.4 K/mcL (0.0-1.3); Monocytes % 11.8 %; Neutrophils # 2.4 K/mcL (1.6-8.9); Red Blood Count 4.34 M/mcL (4.19-5.50); Segmented Neutrophils % 70.2 %; White Blood Count 3.4 K/mcL (4.3-11.1)
[2019-02-13 05:22] LABS: Platelet Count 24 K/mcL (140-400)
[2019-02-13 05:26] LABS: BUN/Creatinine Ratio 19 (6-26); Blood Urea Nitrogen 17 mg/dL (8-23); Calcium 8.5 mg/dL (8.6-10.3); Carbon Dioxide 30 mEq/L (23-29); Chloride 101 mEq/L (98-107); Glucose 100 mg/dL (70-105); Magnesium 1.5 mg/dL (1.6-2.6); Osmolality,Calculated 296 (280-300); Phosphorous 2.6 mg/dL (2.7-4.5); Potassium 3.4 mEq/L (3.5-5.1); Sodium 142 mEq/L (136-145); eGFR For African Americans > 60 (> 60); eGFR For Non-African Americans > 60 (> 60)
[2019-02-13] MEDS ORDERED: Potassium Phosphate 44 MEQ in 0.9 % Sodium Chloride 250 ML IVPB ONE (08:03)
[2019-02-13 08:26] LABS: Alanine Aminotransferase 68 Units/L (7-52); Albumin 2.9 g/dL (3.5-5.7); Albumin/Globulin Ratio 1.6 (1.1-2.2); Alkaline Phosphatase 49 Units/L (34-104); Aspartate Amino Transferase 29 Units/L (13-39); Bilirubin,Direct 0.6 mg/dL (0.0-0.2); Bilirubin,Indirect 0.9 mg/dL (0.0-1.0); Bilirubin,Total 1.5 mg/dL (0.3-1.0); Globulin 1.8 g/dL (2.4-3.5); Total Protein 4.7 g/dL (6.4-8.9)
[2019-02-13 08:28] LABS: Platelet Estimate Marked Decrease (Normal)
[2019-02-13] MEDS: Morphine Sulfate ER (12 HR) 15 MG TABLET.ER PO SCH ×2 (09:29→17:28)
[2019-02-13] MEDS: predniSONE 20 MG TABLET PO SCH (09:58)
[2019-02-13] MEDS: Folic Acid 1 MG TABLET PO SCH (09:58)
[2019-02-13] MEDS: levoFLOXacin 750 MG/150 ML 750 MG/150 ML BAG IVPB SCH (10:00)
[2019-02-13] MEDS: Morphine Sulfate Immed Rel 15 MG TABLET PO PRN (20:46)
[2019-02-14 04:24] LABS: Hematocrit 36.8 % (37.5-50.1); Hemoglobin 12.3 g/dL (12.9-16.9); Immature Platelets 10.8 % (1.1-6.1); Lymphocytes # 0.6 K/mcL (0.6-4.6); Mean Corpuscular HGB Conc 33.4 g/dL (31.6-35.5); Mean Corpuscular Hemoglobin 28.8 pg (28.0-33.3); Mean Corpuscular Volume 86.2 fL (83.0-100.0); Mean Platelet Volume 13.7 fL (9.4-12.4); Red Blood Count 4.27 M/mcL (4.19-5.50); Red Cell Distribution Width 13.3 % (11.5-14.5); White Blood Count 3.6 K/mcL (4.3-11.1)
[2019-02-14 04:42] LABS: Alanine Aminotransferase 53 Units/L (7-52); Albumin 2.6 g/dL (3.5-5.7); Albumin/Globulin Ratio 1.4 (1.1-2.2); Alkaline Phosphatase 55 Units/L (34-104); Aspartate Amino Transferase 20 Units/L (13-39); BUN/Creatinine Ratio 14 (6-26); Bilirubin,Total 1.8 mg/dL (0.3-1.0); Blood Urea Nitrogen 13 mg/dL (8-23); Calcium 7.8 mg/dL (8.6-10.3); Carbon Dioxide 29 mEq/L (23-29); Chloride 104 mEq/L (98-107); Globulin 1.9 g/dL (2.4-3.5); Glucose 84 mg/dL (70-105); Magnesium 1.7 mg/dL (1.6-2.6); Osmolality,Calculated 283 (280-300); Phosphorous 3.2 mg/dL (2.7-4.5); Potassium 3.5 mEq/L (3.5-5.1); Sodium 137 mEq/L (136-145); Total Protein 4.5 g/dL (6.4-8.9); eGFR For African Americans > 60 (> 60); eGFR For Non-African Americans > 60 (> 60)
[2019-02-14 04:43] LABS: Platelet Count 23 K/mcL (140-400)
[2019-02-14 04:46] LABS: Lymphocytes % 17.6 %; Monocytes # 0.5 K/mcL (0.0-1.3); Monocytes % 14.7 %; Neutrophils # 2.4 K/mcL (1.6-8.9); Platelet Estimate Marked Decrease (Normal); Reactive Lymphocytes Present (Not Present); Segmented Neutrophils % 67.6 %
[2019-02-14] MEDS: Morphine Sulfate ER (12 HR) 15 MG TABLET.ER PO SCH ×2 (05:31→17:58)
[2019-02-14] MEDS: *HR* Promethazine 25 MG/ML VIAL IVP PRN ×2 (05:37→11:28)
[2019-02-14] MEDS: Pantoprazole 40 MG VIAL IVP SCH (10:11)
[2019-02-14] MEDS: Folic Acid 1 MG TABLET PO SCH (10:12)
[2019-02-14] MEDS: levoFLOXacin 750 MG/150 ML 750 MG/150 ML BAG IVPB SCH (10:12)
[2019-02-14] MEDS ORDERED: Isovue-370 500 ML BOTTLE IVP ONE (11:21)
[2019-02-15] MEDS: *HR* Promethazine 25 MG/ML VIAL IVP PRN (01:10)
[2019-02-15] MEDS: Ipratropium/Albuterol Neb 3 ML IH PRN ×2 (01:54→06:11)
[2019-02-15 04:29] LABS: Hematocrit 38.7 % (37.5-50.1); Hemoglobin 12.6 g/dL (12.9-16.9); Mean Corpuscular HGB Conc 32.6 g/dL (31.6-35.5); Nucleated Red Blood Cells 0.3 /100 WBC (0); Red Blood Count 4.35 M/mcL (4.19-5.50); Red Cell Distribution Width 13.4 % (11.5-14.5)
[2019-02-15] MEDS ORDERED: Prochlorperazine 10 MG/2 ML VIAL IVP PRN (04:32)
[2019-02-15 04:35] LABS: Platelet Count 31 K/mcL (140-400)
[2019-02-15 04:37] LABS: Alanine Aminotransferase 42 Units/L (7-52); Albumin 2.8 g/dL (3.5-5.7); Albumin/Globulin Ratio 1.3 (1.1-2.2); Alkaline Phosphatase 68 Units/L (34-104); Aspartate Amino Transferase 17 Units/L (13-39); BUN/Creatinine Ratio 10 (6-26); Blood Urea Nitrogen 10 mg/dL (8-23); Calcium 8.2 mg/dL (8.6-10.3); Carbon Dioxide 28 mEq/L (23-29); Chloride 100 mEq/L (98-107); Globulin 2.2 g/dL (2.4-3.5); Glucose 90 mg/dL (70-105); Magnesium 1.5 mg/dL (1.6-2.6); Osmolality,Calculated 281 (280-300); Phosphorous 2.7 mg/dL (2.7-4.5); Potassium 3.5 mEq/L (3.5-5.1); Sodium 136 mEq/L (136-145); eGFR For African Americans > 60 (> 60); eGFR For Non-African Americans > 60 (> 60)
[2019-02-15] MEDS ORDERED: Scopolamine Patch 1.5 MG PATCH.TD72 TD ONE (04:51)
[2019-02-15] MEDS: Morphine Sulfate ER (12 HR) 15 MG TABLET.ER PO SCH ×2 (05:23→18:33)
[2019-02-15 05:36] LABS: Lymphocytes # 1.1 K/mcL (0.6-4.6); Monocytes # 0.8 K/mcL (0.0-1.3); Neutrophils # 3.8 K/mcL (1.6-8.9); Platelet Estimate Marked Decrease (Normal)
[2019-02-15 05:37] LABS: Reactive Lymphocytes Present (Not Present)
[2019-02-15] MEDS: Folic Acid 1 MG TABLET PO SCH (08:46)
[2019-02-15] MEDS: Pantoprazole 40 MG VIAL IVP SCH (08:46)
[2019-02-16] MEDS: Ipratropium/Albuterol Neb 3 ML IH PRN (00:09)
[2019-02-16 00:56] LABS: Hematocrit 37.6 % (37.5-50.1); Hemoglobin 12.5 g/dL (12.9-16.9); Mean Corpuscular HGB Conc 33.2 g/dL (31.6-35.5); Mean Corpuscular Hemoglobin 28.9 pg (28.0-33.3); Mean Corpuscular Volume 86.8 fL (83.0-100.0); Red Blood Count 4.33 M/mcL (4.19-5.50); Red Cell Distribution Width 13.5 % (11.5-14.5); White Blood Count 6.5 K/mcL (4.3-11.1)
[2019-02-16 00:58] LABS: Platelet Count 38 K/mcL (140-400)
[2019-02-16 01:20] LABS: BUN/Creatinine Ratio 10 (6-26); Blood Urea Nitrogen 10 mg/dL (8-23); Calcium 8.2 mg/dL (8.6-10.3); Carbon Dioxide 28 mEq/L (23-29); Chloride 98 mEq/L (98-107); Glucose 86 mg/dL (70-105); Magnesium 1.7 mg/dL (1.6-2.6); Osmolality,Calculated 276 (280-300); Potassium 3.6 mEq/L (3.5-5.1); Sodium 134 mEq/L (136-145); eGFR For African Americans > 60 (> 60); eGFR For Non-African Americans > 60 (> 60)
[2019-02-16 01:47] LABS: Eosinophils # 0.1 K/mcL (0.0-0.6); Lymphocytes # 1.8 K/mcL (0.6-4.6); Monocytes # 0.7 K/mcL (0.0-1.3); Neutrophils # 3.9 K/mcL (1.6-8.9); Reactive Lymphocytes Present (Not Present)
[2019-02-16 01:48] LABS: Hypochromasia Present (Not Present); Platelet Estimate Marked Decrease (Normal); Polychromasia 1+ (Not Present)
[2019-02-16] MEDS: Morphine Sulfate ER (12 HR) 15 MG TABLET.ER PO SCH (05:02)
[2019-02-16 08:20] VITALS: BP 158/72
[2019-02-16] MEDS: Folic Acid 1 MG TABLET PO SCH (10:06)
[2019-02-16] MEDS: Pantoprazole 40 MG VIAL IVP SCH ×2 (10:06→10:09)
== END 2019-02-16 15:09 | disposition home or self-care (01) | DRG 871 ==
LOC: 2NNU 20:18 → EMEROOARM 20:18 → SUATTDRO 23:57 → 2NNU 02-08 00:30 → SUATTDRO 02-09 14:47 → 2ANU 02-09 19:10
PROVIDERS: ADMIT Internal Medicine; ATTEND Pharmacist

== ENCOUNTER 2019-02-18 12:39 | Observation (INO) ==
[2019-02-18] MEDS ORDERED: Ipratropium/Albuterol Neb 3 ML IH ONE (12:49)
[2019-02-18 13:16] LABS: Hematocrit 38.7 % (37.5-50.1); Hemoglobin 12.3 g/dL (12.9-16.9); Lymphocytes # 0.7 K/mcL (0.6-4.6); Mean Corpuscular HGB Conc 31.8 g/dL (31.6-35.5); Mean Corpuscular Hemoglobin 29.1 pg (28.0-33.3); Mean Corpuscular Volume 91.5 fL (83.0-100.0); Mean Platelet Volume 11.8 fL (9.4-12.4); Platelet Count 107 K/mcL (140-400); Red Blood Count 4.23 M/mcL (4.19-5.50); Red Cell Distribution Width 13.6 % (11.5-14.5); White Blood Count 9.1 K/mcL (4.3-11.1)
[2019-02-18 13:43] LABS: BUN/Creatinine Ratio 11 (6-26); Blood Urea Nitrogen 10 mg/dL (8-23); Calcium 8.7 mg/dL (8.6-10.3); Carbon Dioxide 23 mEq/L (23-29); Chloride 101 mEq/L (98-107); Glucose 93 mg/dL (70-105); Osmolality,Calculated 285 (280-300); Potassium 3.5 mEq/L (3.5-5.1); Sodium 138 mEq/L (136-145); Troponin I < 0.03 ng/mL (< 0.04); eGFR For African Americans > 60 (> 60); eGFR For Non-African Americans > 60 (> 60)
[2019-02-18 13:50] LABS: Anisocytosis 1+ (Not Present); Monocytes # 1.3 K/mcL (0.0-1.3); Neutrophils # 6.7 K/mcL (1.6-8.9); Platelet Estimate Decreased (Normal)
[2019-02-18 15:01] LABS: VBG HCO3 28 mEq/L (21-27); VBG PCO2 49 mmHg (41-51); VBG PH 7.36 pH Units (7.32-7.42); VBG PO2 54 mmHg (25-50)
[2019-02-18] MEDS ORDERED: Naloxone 0.4 MG/ML INJ IVP PRN (16:06)
[2019-02-18] MEDS ORDERED: Acetaminophen 325 MG TABLET PO PRN (16:06)
[2019-02-18] MEDS ORDERED: Ondansetron 4 MG/2 ML VIAL IVP PRN (16:06)
[2019-02-18] MEDS ORDERED: ALPRAZolam 0.5 MG TABLET PO PRN (20:41)
[2019-02-18] MEDS ORDERED: Budesonide Neb 0.25 MG/2 ML IH PRN (20:41)
[2019-02-18] MEDS: Levalbuterol Neb 1.25 MG/3 ML IH SCH ×2 (20:42→22:41)
[2019-02-18 20:55] LABS: ABG Base Excess 2 mEq/L (-2 to 3); ABG HCO3 26 mEq/L (21-27); ABG Oxygen Saturation 98 % (95-98); ABG PCO2 36 mmHg (35-45); ABG PH 7.47 pH Units (7.32-7.45); ABG PO2 91 mmHg (85-104); ABG TCO2 27 mEq/L (20-26)
[2019-02-19] MEDS: Levalbuterol Neb 1.25 MG/3 ML IH SCH ×4 (03:50→22:46)
[2019-02-19 04:37] LABS: Hematocrit 37.3 % (37.5-50.1); Hemoglobin 11.7 g/dL (12.9-16.9); Mean Corpuscular HGB Conc 31.4 g/dL (31.6-35.5); Mean Corpuscular Hemoglobin 28.5 pg (28.0-33.3); Mean Platelet Volume 11.7 fL (9.4-12.4); Platelet Count 149 K/mcL (140-400); Red Cell Distribution Width 13.7 % (11.5-14.5); White Blood Count 8.8 K/mcL (4.3-11.1)
[2019-02-19 04:59] LABS: BUN/Creatinine Ratio 9 (6-26); Blood Urea Nitrogen 9 mg/dL (8-23); Calcium 8.8 mg/dL (8.6-10.3); Carbon Dioxide 28 mEq/L (23-29); Chloride 100 mEq/L (98-107); Glucose 89 mg/dL (70-105); Magnesium 1.7 mg/dL (1.6-2.6); Osmolality,Calculated 290 (280-300); Potassium 3.4 mEq/L (3.5-5.1); Sodium 141 mEq/L (136-145); eGFR For African Americans > 60 (> 60); eGFR For Non-African Americans > 60 (> 60)
[2019-02-19 05:12] LABS: Thyroid Stimulating Hormone 4.062 mcIU/mL (0.340-5.600)
[2019-02-19 05:20] LABS: Lymphocytes # 1.4 K/mcL (0.6-4.6); Neutrophils # 7.4 K/mcL (1.6-8.9)
[2019-02-19 05:21] LABS: Platelet Estimate Normal (Normal); Reactive Lymphocytes Present (Not Present)
[2019-02-19] MEDS ORDERED: Ergocalciferol (VIT D2) 50,000 UNIT (1.25MG) CAP PO SCH (09:00)
[2019-02-19] MEDS ORDERED: Perflutren Lipid Microsphere 1.3 ML in 0.9 % Sodium Chloride 8.7 ML IVP ONE (09:30)
[2019-02-19] MEDS: Folic Acid 1 MG TABLET PO SCH (10:11)
[2019-02-19] MEDS: predniSONE 5 MG TABLET PO SCH (10:11)
[2019-02-19] MEDS ORDERED: ONDANSETRON HCL 8 MG PO PRN (16:44)
[2019-02-19] MEDS ORDERED: Furosemide 20 MG TABLET PO PRN (16:44)
[2019-02-19] MEDS ORDERED: Morphine Sulfate Immed Rel 15 MG TABLET PO PRN (16:44)
[2019-02-19] MEDS ORDERED: INDOMETHACIN 50 MG PO SCH (16:45)
[2019-02-19] MEDS: Morphine Sulfate ER (12 HR) 30 MG TABLET.ER PO SCH (17:11)
[2019-02-19] MEDS: Ipratropium/Albuterol Neb 3 ML IH SCH ×2 (19:44→22:49)
[2019-02-19] MEDS: Budesonide/Formoterol 80/4.5 1 PUFF INH IH SCH (22:46)
[2019-02-20] MEDS: Ipratropium/Albuterol Neb 3 ML IH SCH ×3 (04:05→15:36)
[2019-02-20] MEDS: Levalbuterol Neb 1.25 MG/3 ML IH SCH ×3 (04:05→15:35)
[2019-02-20] MEDS: Morphine Sulfate ER (12 HR) 30 MG TABLET.ER PO SCH ×2 (06:09→17:18)
[2019-02-20 07:18] LABS: BUN/Creatinine Ratio 8 (6-26); Blood Urea Nitrogen 8 mg/dL (8-23); Calcium 8.6 mg/dL (8.6-10.3); Carbon Dioxide 29 mEq/L (23-29); Chloride 100 mEq/L (98-107); Glucose 90 mg/dL (70-105); Magnesium 1.7 mg/dL (1.6-2.6); Osmolality,Calculated 288 (280-300); Potassium 3.5 mEq/L (3.5-5.1); Sodium 140 mEq/L (136-145); eGFR For African Americans > 60 (> 60); eGFR For Non-African Americans > 60 (> 60)
[2019-02-20 07:23] LABS: Basophils # 0.1 K/mcL (0.0-0.2); Basophils % 0.7 %; Eosinophils % 0.5 %; Hematocrit 35.5 % (37.5-50.1); Hemoglobin 11.2 g/dL (12.9-16.9); Immature Granulocytes % 4.8 % (0-4); Lymphocytes # 0.8 K/mcL (0.6-4.6); Lymphocytes % 10.4 %; Mean Corpuscular HGB Conc 31.5 g/dL (31.6-35.5); Mean Corpuscular Hemoglobin 29.2 pg (28.0-33.3); Mean Corpuscular Volume 92.7 fL (83.0-100.0); Monocytes # 0.6 K/mcL (0.0-1.3); Monocytes % 8.6 %; Neutrophils # 5.5 K/mcL (1.6-8.9); Platelet Count 191 K/mcL (140-400); Red Blood Count 3.83 M/mcL (4.19-5.50); Red Cell Distribution Width 13.8 % (11.5-14.5); White Blood Count 7.3 K/mcL (4.3-11.1)
[2019-02-20] MEDS ORDERED: NON-FORMULARY MEDICATION 1 EACH EACH (Formoterol Fumarate [Perforomist] 20 MCG) IH SCH (09:00)
[2019-02-20] MEDS: predniSONE 5 MG TABLET PO SCH (09:27)
[2019-02-20] MEDS: Folic Acid 1 MG TABLET PO SCH (09:28)
[2019-02-20] MEDS: Indomethacin 25 MG CAPSULE PO SCH ×2 (11:10→17:18)
[2019-02-20] MEDS: Budesonide/Formoterol 80/4.5 1 PUFF INH IH SCH (11:17)
[2019-02-20 12:11] VITALS: BP 108/74
[2019-02-20] MEDS ORDERED: Chloraseptic Spray 177 ML BOTTLE MM PRN (12:49)
== END 2019-02-20 18:25 | disposition home health service (06) ==
LOC: EMEROOARM 12:39 → 2ANU 12:39 → SUATTDRO 15:48 → 2ANU 18:12
PROVIDERS: ADMIT Pharmacist; ATTEND Pharmacist

== ENCOUNTER 2019-04-08 17:31 | Observation (INO) ==
[2019-04-08 18:11] LABS: Basophils % 0.5 %; Eosinophils % 0.5 %
[2019-04-08 18:13] LABS: Hematocrit 20.5 % (37.5-50.1); Hemoglobin 6.8 g/dL (12.9-16.9); Immature Granulocytes % 4.4 % (0-4); Lymphocytes # 0.4 K/mcL (0.6-4.6); Lymphocytes % 22.1 %; Mean Corpuscular HGB Conc 33.2 g/dL (31.6-35.5); Mean Corpuscular Hemoglobin 31.1 pg (28.0-33.3); Mean Corpuscular Volume 93.6 fL (83.0-100.0); Mean Platelet Volume 11.2 fL (9.4-12.4); Monocytes # 0.1 K/mcL (0.0-1.3); Monocytes % 6.4 %; Neutrophils # 1.3 K/mcL (1.6-8.9); Platelet Count 51 K/mcL (140-400); Red Blood Count 2.19 M/mcL (4.19-5.50); Red Cell Distribution Width 18.5 % (11.5-14.5); Segmented Neutrophils % 66.1 %
[2019-04-08] MEDS ORDERED: Ipratropium/Albuterol Neb 3 ML IH ONE (18:16)
[2019-04-08 18:20] LABS: INR 1.4
[2019-04-08 18:23] LABS: Activated Partial Thrombo Time 35.1 Seconds (26.0-36.0)
[2019-04-08 18:37] LABS: BUN/Creatinine Ratio 19 (6-26); Blood Urea Nitrogen 18 mg/dL (8-23); Calcium 8.6 mg/dL (8.6-10.3); Carbon Dioxide 29 mEq/L (23-29); Chloride 100 mEq/L (98-107); Glucose 106 mg/dL (70-105); Osmolality,Calculated 292 (280-300); Potassium 3.6 mEq/L (3.5-5.1); Sodium 140 mEq/L (136-145); Troponin I < 0.03 ng/mL (< 0.04); eGFR For African Americans > 60 (> 60); eGFR For Non-African Americans > 60 (> 60)
[2019-04-08] MEDS ORDERED: Isovue-370 500 ML BOTTLE IVP ONE (18:50)
[2019-04-08 19:38] LABS: Platelet Estimate Marked Decrease (Normal)
[2019-04-08] MEDS ORDERED: Naloxone 0.4 MG/ML INJ IVP PRN (20:55)
[2019-04-08] MEDS ORDERED: Nitroglycerin 0.4 MG TAB.SUBL SL PRN (20:58)
[2019-04-08] MEDS ORDERED: Ipratropium/Albuterol Neb 3 ML IH PRN (20:59)
[2019-04-08] MEDS ORDERED: Albuterol 2.5 MG/3 ML NEBULIZER IH PRN (21:01)
[2019-04-08] MEDS ORDERED: Morphine Sulfate Immed Rel 15 MG TABLET PO PRN (21:01)
[2019-04-08] MEDS ORDERED: ALPRAZolam 0.5 MG TABLET PO PRN (21:01)
[2019-04-08] MEDS ORDERED: Furosemide 20 MG TABLET PO PRN (21:01)
[2019-04-08] MEDS ORDERED: 0.9 % Sodium Chloride 500 ML ONE (21:47)
[2019-04-08] MEDS: Doxycycline 100 MG in 0.9 % Sodium Chloride Mini Bag 100 ML IVPB SCH (23:29)
[2019-04-08] MEDS: Morphine Sulfate ER (12 HR) 30 MG TABLET.ER PO SCH (23:29)
[2019-04-08] MEDS: MethylPREDNISolone 40 MG/ML VIAL IVP SCH (23:29)
[2019-04-09] MEDS ORDERED: 0.9 % Sodium Chloride 250 ML ONE (01:05)
[2019-04-09] MEDS ORDERED: *HR* Heparin 5,000 UNIT/ML VIAL SQ SCH (06:00)
[2019-04-09 06:26] LABS: Hemoglobin 8.2 g/dL (12.9-16.9); Immature Granulocytes % 0.8 % (0-4); Lymphocytes # 0.2 K/mcL (0.6-4.6); Lymphocytes % 15.2 %; Mean Corpuscular HGB Conc 32.8 g/dL (31.6-35.5); Mean Corpuscular Hemoglobin 30.6 pg (28.0-33.3); Mean Corpuscular Volume 93.3 fL (83.0-100.0); Mean Platelet Volume 11.8 fL (9.4-12.4); Neutrophils # 1.1 K/mcL (1.6-8.9); Red Blood Count 2.68 M/mcL (4.19-5.50); Red Cell Distribution Width 18.2 % (11.5-14.5); White Blood Count 1.3 K/mcL (4.3-11.1)
[2019-04-09 06:27] LABS: Platelet Count 44 K/mcL (140-400)
[2019-04-09 06:43] LABS: Magnesium 1.6 mg/dL (1.6-2.6); Phosphorous 3.9 mg/dL (2.7-4.5)
[2019-04-09 06:44] LABS: Alanine Aminotransferase 16 Units/L (7-52); Albumin 3.3 g/dL (3.5-5.7); Alkaline Phosphatase 96 Units/L (34-104); Aspartate Amino Transferase 16 Units/L (13-39); BUN/Creatinine Ratio 20 (6-26); Bilirubin,Total 2.5 mg/dL (0.3-1.0); Blood Urea Nitrogen 18 mg/dL (8-23); Calcium 8.9 mg/dL (8.6-10.3); Carbon Dioxide 26 mEq/L (23-29); Chloride 100 mEq/L (98-107); Globulin 3.2 g/dL (2.4-3.5); Glucose 143 mg/dL (70-105); Osmolality,Calculated 292 (280-300); Potassium 4.2 mEq/L (3.5-5.1); Sodium 139 mEq/L (136-145); Total Protein 6.5 g/dL (6.4-8.9); eGFR For African Americans > 60 (> 60); eGFR For Non-African Americans > 60 (> 60)
[2019-04-09 06:48] LABS: Anisocytosis 1+ (Not Present); Platelet Estimate Decreased (Normal)
[2019-04-09 06:49] LABS: Large Platelets Present (Not Present)
[2019-04-09] MEDS: Folic Acid 1 MG TABLET PO SCH (08:41)
[2019-04-09] MEDS ORDERED: predniSONE 5 MG TABLET PO SCH (09:00)
[2019-04-09] MEDS ORDERED: Pregabalin 75 MG CAPSULE PO SCH (09:00)
[2019-04-09 09:28] LABS: Ferritin > 1500 ng/mL (20-250)
[2019-04-09] MEDS: Morphine Sulfate ER (12 HR) 30 MG TABLET.ER PO SCH ×2 (10:50→23:40)
[2019-04-09] MEDS: Doxycycline 100 MG in 0.9 % Sodium Chloride Mini Bag 100 ML IVPB SCH ×2 (10:50→23:40)
[2019-04-09] MEDS: MethylPREDNISolone 40 MG/ML VIAL IVP SCH ×2 (10:50→23:40)
[2019-04-09] MEDS ORDERED: *HR* Alteplase (Cathflo) 2 MG VIAL IVP ONE (13:00)
[2019-04-09] MEDS: Ipratropium/Albuterol Neb 3 ML IH SCH ×2 (15:14→22:08)
[2019-04-09] MEDS: Budesonide/Formoterol 80/4.5 1 PUFF INH IH SCH (22:08)
[2019-04-10 04:58] LABS: Hemoglobin 8.1 g/dL (12.9-16.9); Red Cell Distribution Width 17.6 % (11.5-14.5)
[2019-04-10 04:59] LABS: Hematocrit 23.8 % (37.5-50.1); Immature Granulocytes % 1.1 % (0-4); Lymphocytes # 0.1 K/mcL (0.6-4.6); Lymphocytes % 13.7 %; Mean Corpuscular Hemoglobin 30.3 pg (28.0-33.3); Mean Corpuscular Volume 89.1 fL (83.0-100.0); Mean Platelet Volume 11.7 fL (9.4-12.4); Monocytes # 0.1 K/mcL (0.0-1.3); Monocytes % 9.5 %; Red Blood Count 2.67 M/mcL (4.19-5.50); Segmented Neutrophils % 75.7 %
[2019-04-10 05:08] LABS: Neutrophils # 0.8 K/mcL (1.6-8.9); Platelet Count 38 K/mcL (140-400)
[2019-04-10 05:52] LABS: Platelet Estimate Marked Decrease (Normal)
[2019-04-10] MEDS: Ipratropium/Albuterol Neb 3 ML IH SCH (09:36)
[2019-04-10] MEDS: Budesonide/Formoterol 80/4.5 1 PUFF INH IH SCH (09:37)
[2019-04-10] MEDS: Doxycycline 100 MG in 0.9 % Sodium Chloride Mini Bag 100 ML IVPB SCH (10:02)
[2019-04-10] MEDS: Morphine Sulfate ER (12 HR) 30 MG TABLET.ER PO SCH (10:03)
[2019-04-10] MEDS: MethylPREDNISolone 40 MG/ML VIAL IVP SCH (10:03)
[2019-04-10] MEDS: Folic Acid 1 MG TABLET PO SCH (10:03)
[2019-04-10 15:45] VITALS: BP 127/77
== END 2019-04-10 18:40 | disposition home or self-care (01) ==
LOC: 3ANU 17:31 → EMEROOARM 17:31 → 3ANU 22:56
PROVIDERS: ADMIT Student in an Organized Health Care Education/Training Program; ATTEND Student in an Organized Health Care Education/Training Program

== ENCOUNTER 2019-04-22 11:19 | Observation (INO) ==
[2019-04-22] MEDS ORDERED: predniSONE 20 MG TABLET PO ONE (11:35)
[2019-04-22] MEDS ORDERED: Ipratropium/Albuterol Neb 3 ML IH ONE (11:36)
[2019-04-22 12:14] LABS: INR 1.5; Prothrombin Time 16.6 Seconds (9.4-12.1)
[2019-04-22 12:16] LABS: Activated Partial Thrombo Time 28.7 Seconds (26.0-36.0)
[2019-04-22 12:28] LABS: Basophils % 0.2 %; Eosinophils % 0.2 %; Hematocrit 19.5 % (37.5-50.1); Hemoglobin 6.1 g/dL (12.9-16.9); Immature Granulocytes % 2.5 % (0-4); Lymphocytes # 0.6 K/mcL (0.6-4.6); Lymphocytes % 7.4 %; Mean Corpuscular HGB Conc 31.3 g/dL (31.6-35.5); Mean Corpuscular Hemoglobin 31.1 pg (28.0-33.3); Mean Corpuscular Volume 99.5 fL (83.0-100.0); Mean Platelet Volume 9.9 fL (9.4-12.4); Monocytes # 0.9 K/mcL (0.0-1.3); Monocytes % 10.2 %; Neutrophils # 6.6 K/mcL (1.6-8.9); Nucleated Red Blood Cells 0.5 /100 WBC (0); Platelet Count 180 K/mcL (140-400); Red Blood Count 1.96 M/mcL (4.19-5.50); Red Cell Distribution Width 20.5 % (11.5-14.5); Segmented Neutrophils % 79.5 %; White Blood Count 8.4 K/mcL (4.3-11.1)
[2019-04-22 12:28] LABS: Alanine Aminotransferase 14 Units/L (7-52); Albumin 3.2 g/dL (3.5-5.7); Alkaline Phosphatase 78 Units/L (34-104); Aspartate Amino Transferase 22 Units/L (13-39); BUN/Creatinine Ratio 15 (6-26); Bilirubin,Direct 0.4 mg/dL (0.0-0.2); Bilirubin,Indirect 1.1 mg/dL (0.0-1.0); Bilirubin,Total 1.5 mg/dL (0.3-1.0); Blood Urea Nitrogen 17 mg/dL (8-23); Calcium 8.9 mg/dL (8.6-10.3); Carbon Dioxide 26 mEq/L (23-29); Chloride 102 mEq/L (98-107); Globulin 3.2 g/dL (2.4-3.5); Glucose 94 mg/dL (70-105); Osmolality,Calculated 289 (280-300); Potassium 3.7 mEq/L (3.5-5.1); Sodium 139 mEq/L (136-145); Total Protein 6.4 g/dL (6.4-8.9); eGFR For African Americans > 60 (> 60); eGFR For Non-African Americans > 60 (> 60)
[2019-04-22 12:37] LABS: Troponin I 0.85 ng/mL (< 0.04)
[2019-04-22] MEDS ORDERED: Isovue-370 500 ML BOTTLE IVP ONE (13:08)
[2019-04-22] MEDS ORDERED: 0.9 % Sodium Chloride 1,000 ML ONE (13:59)
[2019-04-22] MEDS ORDERED: Naloxone 0.4 MG/ML INJ IVP PRN (17:10)
[2019-04-22] MEDS ORDERED: Furosemide 20 MG/2 ML VIAL IVP ONE (17:43)
[2019-04-22] MEDS ORDERED: 0.9 % Sodium Chloride 250 ML ONE (17:45)
[2019-04-22] MEDS: Pantoprazole 40 MG VIAL IVP SCH (18:17)
[2019-04-22 22:39] LABS: Hematocrit 26.4 % (37.5-50.1)
[2019-04-22 22:40] LABS: Hemoglobin 8.5 g/dL (12.9-16.9)
[2019-04-22] MEDS: Folic Acid 1 MG TABLET PO SCH (23:12)
[2019-04-22] MEDS: Morphine Sulfate ER (12 HR) 30 MG TABLET.ER PO SCH (23:12)
[2019-04-23 03:04] LABS: Hematocrit 24.6 % (37.5-50.1); Hemoglobin 7.8 g/dL (12.9-16.9); Mean Corpuscular HGB Conc 31.7 g/dL (31.6-35.5); Mean Corpuscular Hemoglobin 30.4 pg (28.0-33.3); Mean Corpuscular Volume 95.7 fL (83.0-100.0); Mean Platelet Volume 10.2 fL (9.4-12.4); Platelet Count 197 K/mcL (140-400); Red Blood Count 2.57 M/mcL (4.19-5.50); Red Cell Distribution Width 19.7 % (11.5-14.5); White Blood Count 6.2 K/mcL (4.3-11.1)
[2019-04-23 03:28] LABS: BUN/Creatinine Ratio 16 (6-26); Blood Urea Nitrogen 17 mg/dL (8-23); Calcium 8.9 mg/dL (8.6-10.3); Carbon Dioxide 27 mEq/L (23-29); Chloride 102 mEq/L (98-107); Glucose 116 mg/dL (70-105); Osmolality,Calculated 293 (280-300); Potassium 3.8 mEq/L (3.5-5.1); Sodium 140 mEq/L (136-145); eGFR For African Americans > 60 (> 60); eGFR For Non-African Americans > 60 (> 60)
[2019-04-23] MEDS: Pantoprazole 40 MG VIAL IVP SCH ×2 (06:17→17:13)
[2019-04-23 06:37] LABS: Hematocrit 25.8 % (37.5-50.1); Hemoglobin 8.3 g/dL (12.9-16.9)
[2019-04-23] MEDS: Folic Acid 1 MG TABLET PO SCH (09:47)
[2019-04-23] MEDS: Morphine Sulfate ER (12 HR) 30 MG TABLET.ER PO SCH ×2 (09:47→21:03)
[2019-04-23] MEDS: Ipratropium/Albuterol Neb 3 ML IH PRN ×2 (12:28→21:19)
[2019-04-23] MEDS: Furosemide 20 MG TABLET PO SCH (12:51)
[2019-04-23] MEDS ORDERED: Perflutren Lipid Microsphere 1.3 ML in 0.9 % Sodium Chloride 8.7 ML IVP ONE (15:34)
[2019-04-23 15:48] LABS: Hematocrit 24.5 % (37.5-50.1); Hemoglobin 7.9 g/dL (12.9-16.9)
[2019-04-23] MEDS ORDERED: SODIUM CHLORIDE/NAHCO3/KCL/PEG 4,000 ML SOLN.RECON PO ONE (17:00)
[2019-04-23 21:19] LABS: Hematocrit 25.8 % (37.5-50.1); Hemoglobin 8.3 g/dL (12.9-16.9)
[2019-04-24] MEDS: Morphine Sulfate Immed Rel 15 MG TABLET PO PRN (03:03)
[2019-04-24 03:20] LABS: Hematocrit 24.9 % (37.5-50.1); Mean Corpuscular HGB Conc 32.1 g/dL (31.6-35.5); Mean Corpuscular Hemoglobin 31.4 pg (28.0-33.3); Mean Corpuscular Volume 97.6 fL (83.0-100.0); Mean Platelet Volume 10.1 fL (9.4-12.4); Platelet Count 179 K/mcL (140-400); Red Blood Count 2.55 M/mcL (4.19-5.50); Red Cell Distribution Width 20.1 % (11.5-14.5); White Blood Count 5.4 K/mcL (4.3-11.1)
[2019-04-24 03:33] LABS: BUN/Creatinine Ratio 16 (6-26); Blood Urea Nitrogen 17 mg/dL (8-23); Calcium 8.6 mg/dL (8.6-10.3); Carbon Dioxide 31 mEq/L (23-29); Chloride 102 mEq/L (98-107); Glucose 88 mg/dL (70-105); Osmolality,Calculated 295 (280-300); Sodium 142 mEq/L (136-145); eGFR For African Americans > 60 (> 60); eGFR For Non-African Americans > 60 (> 60)
[2019-04-24] MEDS: Ipratropium/Albuterol Neb 3 ML IH PRN (05:24)
[2019-04-24] MEDS: Pantoprazole 40 MG VIAL IVP SCH ×2 (06:47→16:59)
[2019-04-24] MEDS: Furosemide 20 MG TABLET PO SCH (09:41)
[2019-04-24] MEDS: Folic Acid 1 MG TABLET PO SCH (09:41)
[2019-04-24] MEDS: Morphine Sulfate ER (12 HR) 30 MG TABLET.ER PO SCH ×2 (09:41→21:17)
[2019-04-24] MEDS ORDERED: Albuterol 2.5 MG/3 ML NEBULIZER IH PRN (11:31)
[2019-04-24] MEDS ORDERED: Lidocaine -MPF 2% 2 ML VIAL ONE (13:02)
[2019-04-24] MEDS ORDERED: *HR* Propofol 200 MG/20 ML VIAL IVP ONE (13:46)
[2019-04-24] MEDS: Ipratropium/Albuterol Neb 3 ML IH SCH ×4 (13:55→23:22)
[2019-04-24] MEDS ORDERED: ALPRAZolam 0.5 MG TABLET PO PRN (14:22)
[2019-04-24] MEDS: MethylPREDNISolone 40 MG/ML VIAL IVP SCH (16:59)
[2019-04-25 02:10] LABS: Hematocrit 27.4 % (37.5-50.1); Hemoglobin 8.7 g/dL (12.9-16.9); Mean Corpuscular HGB Conc 31.8 g/dL (31.6-35.5); Mean Corpuscular Hemoglobin 30.5 pg (28.0-33.3); Mean Corpuscular Volume 96.1 fL (83.0-100.0); Mean Platelet Volume 10.4 fL (9.4-12.4); Platelet Count 194 K/mcL (140-400); Red Blood Count 2.85 M/mcL (4.19-5.50); Red Cell Distribution Width 19.9 % (11.5-14.5)
[2019-04-25 02:30] LABS: BUN/Creatinine Ratio 15 (6-26); Blood Urea Nitrogen 16 mg/dL (8-23); Calcium 8.7 mg/dL (8.6-10.3); Carbon Dioxide 30 mEq/L (23-29); Chloride 104 mEq/L (98-107); Glucose 203 mg/dL (70-105); Osmolality,Calculated 297 (280-300); Potassium 3.8 mEq/L (3.5-5.1); Sodium 140 mEq/L (136-145); eGFR For African Americans > 60 (> 60); eGFR For Non-African Americans > 60 (> 60)
[2019-04-25] MEDS: Ipratropium/Albuterol Neb 3 ML IH SCH ×3 (03:14→11:37)
[2019-04-25 03:40] VITALS: BP 156/92
[2019-04-25] MEDS: MethylPREDNISolone 40 MG/ML VIAL IVP SCH (05:28)
[2019-04-25] MEDS: Pantoprazole 40 MG VIAL IVP SCH (05:28)
[2019-04-25] MEDS: Morphine Sulfate Immed Rel 15 MG TABLET PO PRN (05:34)
[2019-04-25] MEDS: Furosemide 20 MG TABLET PO SCH (09:47)
[2019-04-25] MEDS: Morphine Sulfate ER (12 HR) 30 MG TABLET.ER PO SCH (09:47)
[2019-04-25] MEDS: Folic Acid 1 MG TABLET PO SCH (09:48)
[2019-04-26] MEDS ORDERED: predniSONE 20 MG TABLET PO SCH (09:00)
== END 2019-04-25 11:37 | disposition home health service (06) ==
LOC: EMEROOARM 11:19 → 2NENU 11:19 → SUATTDRO 16:06 → 2NENU 17:36
PROVIDERS: ADMIT Internal Medicine; ATTEND Family Medicine
PROC: ENDOEBX (2019-04-24 19:05)

== ENCOUNTER 2019-06-22 15:33 | Inpatient (IN) ==
[2019-06-22] MEDS ORDERED: Piperacillin/Tazobactam 3.375 GM in Water for inj. (sterile) 20 ML IVP ONE (15:57)
[2019-06-22] MEDS ORDERED: Doxycycline 100 MG in 0.9 % Sodium Chloride Mini Bag 100 ML IVPB ONE (15:59)
[2019-06-22 16:32] LABS: Eosinophils % 0.3 %; Hematocrit 43.8 % (37.5-50.1)
[2019-06-22 16:34] LABS: Basophils % 0.2 %; Hemoglobin 13.8 g/dL (12.9-16.9); Immature Granulocytes % 0.5 % (0-4); Immature Platelets 6.7 % (1.1-6.1); Lymphocytes # 0.9 K/mcL (0.6-4.6); Lymphocytes % 6.9 %; Mean Corpuscular HGB Conc 31.5 g/dL (31.6-35.5); Mean Corpuscular Hemoglobin 30.1 pg (28.0-33.3); Mean Corpuscular Volume 95.6 fL (83.0-100.0); Mean Platelet Volume 11.2 fL (9.4-12.4); Monocytes # 0.8 K/mcL (0.0-1.3); Platelet Count 124 K/mcL (140-400); Red Blood Count 4.58 M/mcL (4.19-5.50); Red Cell Distribution Width 15.2 % (11.5-14.5); Segmented Neutrophils % 86.1 %; White Blood Count 12.7 K/mcL (4.3-11.1)
[2019-06-22 16:47] LABS: INR 1.2; Prothrombin Time 13.9 Seconds (9.4-12.1)
[2019-06-22 16:55] LABS: Alanine Aminotransferase 7 Units/L (7-52); Albumin 3.8 g/dL (3.5-5.7); Albumin/Globulin Ratio 1.4 (1.1-2.2); Alkaline Phosphatase 46 Units/L (34-104); Aspartate Amino Transferase 12 Units/L (13-39); BUN/Creatinine Ratio 16 (6-26); Bilirubin,Direct 0.3 mg/dL (0.0-0.2); Bilirubin,Indirect 1.2 mg/dL (0.0-1.0); Bilirubin,Total 1.5 mg/dL (0.3-1.0); Blood Urea Nitrogen 15 mg/dL (8-23); C-Reactive Protein 89 mg/L (Less than 10); Calcium 9.3 mg/dL (8.6-10.3); Carbon Dioxide 26 mEq/L (23-29); Chloride 99 mEq/L (98-107); Globulin 2.7 g/dL (2.4-3.5); Glucose 95 mg/dL (70-105); Lactate Dehydrogenase 147 Units/L (140-271); Magnesium 1.4 mg/dL (1.6-2.6); Neutrophils # 10.9 K/mcL (1.6-8.9); Osmolality,Calculated 287 (280-300); Phosphorous 3.4 mg/dL (2.7-4.5); Potassium 3.6 mEq/L (3.5-5.1); Sodium 138 mEq/L (136-145); Total Protein 6.5 g/dL (6.4-8.9); Troponin I < 0.03 ng/mL (< 0.04); eGFR For African Americans > 60 (> 60); eGFR For Non-African Americans > 60 (> 60)
[2019-06-22 17:13] LABS: Ferritin 445 ng/mL (20-250)
[2019-06-22] MEDS ORDERED: Naloxone 0.4 MG/ML INJ IVP PRN (17:49)
[2019-06-22] MEDS ORDERED: Acetaminophen 325 MG TABLET PO PRN (17:49)
[2019-06-22] MEDS ORDERED: Ondansetron 4 MG/2 ML VIAL IVP PRN (17:49)
[2019-06-22] MEDS ORDERED: allopurinoL 100 MG TABLET PO PRN (17:57)
[2019-06-22] MEDS: Morphine Sulfate ER (12 HR) 30 MG TABLET.ER PO SCH (22:25)
[2019-06-22] MEDS: Piperacillin/Tazobactam 3.375 GM in 0.9 % Sodium Chloride Mini Bag 100 ML IVPB SCH (22:52)
[2019-06-23 04:41] LABS: Red Cell Distribution Width 15.1 % (11.5-14.5)
[2019-06-23 04:42] LABS: Basophils % 0.3 %; Eosinophils # 0.2 K/mcL (0.0-0.6); Hematocrit 41.2 % (37.5-50.1); Hemoglobin 12.9 g/dL (12.9-16.9); Immature Granulocytes % 0.3 % (0-4); Immature Platelets 7.8 % (1.1-6.1); Lymphocytes # 0.9 K/mcL (0.6-4.6); Lymphocytes % 11.5 %; Mean Corpuscular HGB Conc 31.3 g/dL (31.6-35.5); Mean Corpuscular Hemoglobin 30.3 pg (28.0-33.3); Mean Corpuscular Volume 96.7 fL (83.0-100.0); Mean Platelet Volume 11.5 fL (9.4-12.4); Monocytes # 0.9 K/mcL (0.0-1.3); Monocytes % 11.2 %; Neutrophils # 5.9 K/mcL (1.6-8.9); Platelet Count 112 K/mcL (140-400); Red Blood Count 4.26 M/mcL (4.19-5.50); Segmented Neutrophils % 74.7 %; White Blood Count 7.9 K/mcL (4.3-11.1)
[2019-06-23 04:58] LABS: Alanine Aminotransferase 5 Units/L (7-52); Albumin 3.6 g/dL (3.5-5.7); Albumin/Globulin Ratio 1.5 (1.1-2.2); Alkaline Phosphatase 40 Units/L (34-104); Aspartate Amino Transferase 10 Units/L (13-39); BUN/Creatinine Ratio 16 (6-26); Bilirubin,Total 1.3 mg/dL (0.3-1.0); Blood Urea Nitrogen 16 mg/dL (8-23); Carbon Dioxide 30 mEq/L (23-29); Chloride 100 mEq/L (98-107); Globulin 2.4 g/dL (2.4-3.5); Glucose 89 mg/dL (70-105); Magnesium 1.6 mg/dL (1.6-2.6); Osmolality,Calculated 287 (280-300); Potassium 3.7 mEq/L (3.5-5.1); Sodium 138 mEq/L (136-145); eGFR For African Americans > 60 (> 60); eGFR For Non-African Americans > 60 (> 60)
[2019-06-23 04:59] LABS: Platelet Estimate Decreased (Normal)
[2019-06-23] MEDS ORDERED: Doxycycline 100 MG in 0.9 % Sodium Chloride Mini Bag 100 ML IVPB SCH (05:00)
[2019-06-23] MEDS: Morphine Sulfate ER (12 HR) 30 MG TABLET.ER PO SCH ×2 (05:18→17:43)
[2019-06-23] MEDS: *HR* Enoxaparin 40 MG/0.4 ML SYRINGE SQ SCH (05:18)
[2019-06-23] MEDS: Piperacillin/Tazobactam 3.375 GM in 0.9 % Sodium Chloride Mini Bag 100 ML IVPB SCH (08:24)
[2019-06-23] MEDS: Furosemide 20 MG TABLET PO SCH (08:24)
[2019-06-23 10:10] LABS: Adenovirus Not Detected (Not Detect); Coronavirus 229E Not Detected (Not Detect); Coronavirus HKU1 Not Detected (Not Detect); Coronavirus NL63 Not Detected (Not Detect); Coronavirus OC43 Not Detected (Not Detect); Human Metapneumovirus Not Detected (Not Detect); Human Rhinovirus/Enterovirus Not Detected (Not Detect)
[2019-06-23 10:11] LABS: Bordetella Pertussis Not Detected (Not Detect); Chlamydophila pneumoniae Not Detected (Not Detect); Influenza A Subtype 2009 H1 Not Detected (Not Detect); Influenza B Not Detected (Not Detect); Mycoplasma pneumoniae Not Detected (Not Detect); Parainfluenza Virus 1 Not Detected (Not Detect); Parainfluenza Virus 2 Not Detected (Not Detect); Parainfluenza Virus 3 Not Detected (Not Detect); Parainfluenza Virus 4 Not Detected (Not Detect); Respiratory Syncytial Virus Not Detected (Not Detect)
[2019-06-23] MEDS: Budesonide/Formoterol 160/4.5 1 PUFF INH IH SCH ×2 (15:41→20:08)
[2019-06-23] MEDS: Doxycycline 100 MG CAPSULE PO SCH (17:43)
[2019-06-24] MEDS: Morphine Sulfate Immed Rel 15 MG TABLET PO PRN ×3 (01:19→17:00)
[2019-06-24] MEDS: Morphine Sulfate ER (12 HR) 30 MG TABLET.ER PO SCH ×2 (05:14→18:11)
[2019-06-24] MEDS: *HR* Enoxaparin 40 MG/0.4 ML SYRINGE SQ SCH (05:14)
[2019-06-24] MEDS: Doxycycline 100 MG CAPSULE PO SCH ×2 (05:14→18:11)
[2019-06-24 05:16] LABS: BUN/Creatinine Ratio 15 (6-26); Blood Urea Nitrogen 18 mg/dL (8-23); Carbon Dioxide 30 mEq/L (23-29); Chloride 102 mEq/L (98-107); Glucose 86 mg/dL (70-105); Osmolality,Calculated 293 (280-300); Potassium 3.8 mEq/L (3.5-5.1); Sodium 141 mEq/L (136-145); eGFR For African Americans > 60 (> 60); eGFR For Non-African Americans > 60 (> 60)
[2019-06-24 05:32] LABS: Basophils % 0.3 %; Eosinophils # 0.3 K/mcL (0.0-0.6); Eosinophils % 2.9 %; Hematocrit 42.3 % (37.5-50.1); Hemoglobin 12.9 g/dL (12.9-16.9); Immature Granulocytes % 0.4 % (0-4); Immature Platelets 8.4 % (1.1-6.1); Lymphocytes # 1.3 K/mcL (0.6-4.6); Lymphocytes % 11.3 %; Mean Corpuscular HGB Conc 30.5 g/dL (31.6-35.5); Mean Corpuscular Hemoglobin 30.1 pg (28.0-33.3); Mean Corpuscular Volume 98.6 fL (83.0-100.0); Mean Platelet Volume 11.8 fL (9.4-12.4); Monocytes # 1.2 K/mcL (0.0-1.3); Monocytes % 10.9 %; Neutrophils # 8.3 K/mcL (1.6-8.9); Platelet Count 123 K/mcL (140-400); Red Blood Count 4.29 M/mcL (4.19-5.50); Red Cell Distribution Width 15.2 % (11.5-14.5); Segmented Neutrophils % 74.2 %; White Blood Count 11.2 K/mcL (4.3-11.1)
[2019-06-24] MEDS: Furosemide 20 MG TABLET PO SCH (09:12)
[2019-06-24] MEDS: Budesonide/Formoterol 160/4.5 1 PUFF INH IH SCH ×2 (09:59→21:47)
[2019-06-24 11:32] LABS: Bilirubin,Urine Small (Negative); Blood,Urine Negative (Negative); Clarity,Urine Clear (Clear); Color,Urine Dark Yellow (Yellow); Glucose,Urine (UA) Normal (Normal); Ketones,Urine Negative (Negative); Leukocyte Esterase,Urine Negative (Negative); Nitrite,Urine Negative (Negative); PH,Urine 5.5 pH Units (5.0-8.0); Protein,Urine Negative (Neg-Trace); Specific Gravity,Urine 1.024 (1.010-1.025); Urobilinogen,Urine Normal (Normal)
[2019-06-24] MEDS ORDERED: Isovue-370 500 ML BOTTLE IVP ONE (16:35)
[2019-06-24] MEDS ORDERED: Ringers Solution, Lactated 1,000 ML IVC ONE (17:24)
[2019-06-24] MEDS: Piperacillin/Tazobactam 3.375 GM in 0.9 % Sodium Chloride Mini Bag 100 ML IVPB SCH (18:12)
[2019-06-24] MEDS ORDERED: Ketorolac 30 MG/ML VIAL IVP ONE (18:43)
[2019-06-24] MEDS ORDERED: Methyl Salicylate/Menthol 57 APPL/57 GM TUBE TP PRN (18:44)
[2019-06-25] MEDS: Piperacillin/Tazobactam 3.375 GM in 0.9 % Sodium Chloride Mini Bag 100 ML IVPB SCH ×3 (01:40→16:12)
[2019-06-25 02:30] LABS: Red Cell Distribution Width 15.1 % (11.5-14.5)
[2019-06-25 02:32] LABS: Basophils # 0.1 K/mcL (0.0-0.2); Basophils % 0.5 %; Eosinophils # 0.1 K/mcL (0.0-0.6); Eosinophils % 1.2 %; Hematocrit 40.3 % (37.5-50.1); Hemoglobin 12.3 g/dL (12.9-16.9); Immature Granulocytes % 0.5 % (0-4); Immature Platelets 7.3 % (1.1-6.1); Lymphocytes # 0.8 K/mcL (0.6-4.6); Lymphocytes % 7.4 %; Mean Corpuscular HGB Conc 30.5 g/dL (31.6-35.5); Mean Corpuscular Hemoglobin 29.7 pg (28.0-33.3); Mean Corpuscular Volume 97.3 fL (83.0-100.0); Mean Platelet Volume 11.6 fL (9.4-12.4); Monocytes # 1.3 K/mcL (0.0-1.3); Monocytes % 11.4 %; Neutrophils # 8.7 K/mcL (1.6-8.9); Platelet Count 107 K/mcL (140-400); Red Blood Count 4.14 M/mcL (4.19-5.50)
[2019-06-25 02:52] LABS: BUN/Creatinine Ratio 15 (6-26); Blood Urea Nitrogen 19 mg/dL (8-23); Calcium 9.2 mg/dL (8.6-10.3); Carbon Dioxide 30 mEq/L (23-29); Chloride 100 mEq/L (98-107); Glucose 110 mg/dL (70-105); Osmolality,Calculated 289 (280-300); Potassium 3.8 mEq/L (3.5-5.1); Sodium 138 mEq/L (136-145); eGFR For African Americans > 60 (> 60); eGFR For Non-African Americans 58 (> 60)
[2019-06-25] MEDS: Morphine Sulfate ER (12 HR) 30 MG TABLET.ER PO SCH ×2 (06:41→18:13)
[2019-06-25] MEDS: Doxycycline 100 MG CAPSULE PO SCH ×2 (06:41→18:13)
[2019-06-25] MEDS: *HR* Enoxaparin 40 MG/0.4 ML SYRINGE SQ SCH (06:41)
[2019-06-25] MEDS: Budesonide/Formoterol 160/4.5 1 PUFF INH IH SCH ×2 (08:17→20:32)
[2019-06-26] MEDS: Piperacillin/Tazobactam 3.375 GM in 0.9 % Sodium Chloride Mini Bag 100 ML IVPB SCH ×4 (00:11→23:12)
[2019-06-26] MEDS: Doxycycline 100 MG CAPSULE PO SCH ×2 (05:51→17:00)
[2019-06-26] MEDS: Morphine Sulfate ER (12 HR) 30 MG TABLET.ER PO SCH ×2 (05:52→17:00)
[2019-06-26] MEDS: *HR* Enoxaparin 40 MG/0.4 ML SYRINGE SQ SCH (05:52)
[2019-06-26 06:31] LABS: Basophils % 0.5 %; Eosinophils # 0.3 K/mcL (0.0-0.6); Eosinophils % 3.4 %; Hematocrit 40.6 % (37.5-50.1); Hemoglobin 12.5 g/dL (12.9-16.9); Immature Granulocytes % 0.4 % (0-4); Immature Platelets 7.7 % (1.1-6.1); Lymphocytes # 0.8 K/mcL (0.6-4.6); Mean Corpuscular HGB Conc 30.8 g/dL (31.6-35.5); Mean Corpuscular Volume 97.4 fL (83.0-100.0); Mean Platelet Volume 11.9 fL (9.4-12.4); Monocytes # 0.8 K/mcL (0.0-1.3); Monocytes % 9.7 %; Neutrophils # 6.6 K/mcL (1.6-8.9); Platelet Count 119 K/mcL (140-400); Red Blood Count 4.17 M/mcL (4.19-5.50); Red Cell Distribution Width 14.8 % (11.5-14.5); White Blood Count 8.5 K/mcL (4.3-11.1)
[2019-06-26] MEDS: Budesonide/Formoterol 160/4.5 1 PUFF INH IH SCH ×2 (07:56→19:51)
[2019-06-26 08:10] LABS: VBG HCO3 33 mEq/L (21-27); VBG PCO2 55 mmHg (41-51); VBG PH 7.39 pH Units (7.32-7.42); VBG PO2 36 mmHg (25-50)
[2019-06-26 08:26] LABS: Alanine Aminotransferase 5 Units/L (7-52); Albumin 3.7 g/dL (3.5-5.7); Albumin/Globulin Ratio 1.3 (1.1-2.2); Alkaline Phosphatase 40 Units/L (34-104); Aspartate Amino Transferase 13 Units/L (13-39); BUN/Creatinine Ratio 14 (6-26); Bilirubin,Direct 0.3 mg/dL (0.0-0.2); Bilirubin,Indirect 0.7 mg/dL (0.0-1.0); Blood Urea Nitrogen 15 mg/dL (8-23); Calcium 9.5 mg/dL (8.6-10.3); Carbon Dioxide 32 mEq/L (23-29); Chloride 101 mEq/L (98-107); Globulin 2.8 g/dL (2.4-3.5); Glucose 97 mg/dL (70-105); Magnesium 1.4 mg/dL (1.6-2.6); Osmolality,Calculated 291 (280-300); Potassium 3.7 mEq/L (3.5-5.1); Sodium 140 mEq/L (136-145); Total Protein 6.5 g/dL (6.4-8.9); eGFR For African Americans > 60 (> 60); eGFR For Non-African Americans > 60 (> 60)
[2019-06-27] MEDS: Doxycycline 100 MG CAPSULE PO SCH ×2 (05:23→18:44)
[2019-06-27] MEDS: *HR* Enoxaparin 40 MG/0.4 ML SYRINGE SQ SCH (05:24)
[2019-06-27] MEDS: Morphine Sulfate ER (12 HR) 30 MG TABLET.ER PO SCH ×2 (05:24→18:44)
[2019-06-27 05:38] LABS: VBG HCO3 33 mEq/L (21-27); VBG PCO2 65 mmHg (41-51); VBG PH 7.32 pH Units (7.32-7.42); VBG PO2 33 mmHg (25-50)
[2019-06-27 05:39] LABS: Basophils % 0.4 %; Immature Granulocytes % 0.3 % (0-4); Lymphocytes % 8.2 %; Mean Corpuscular Volume 99.2 fL (83.0-100.0); Red Cell Distribution Width 14.7 % (11.5-14.5)
[2019-06-27 05:41] LABS: Eosinophils # 0.2 K/mcL (0.0-0.6); Hematocrit 37.2 % (37.5-50.1); Hemoglobin 11.3 g/dL (12.9-16.9); Immature Platelets 7.5 % (1.1-6.1); Lymphocytes # 0.6 K/mcL (0.6-4.6); Mean Corpuscular HGB Conc 30.4 g/dL (31.6-35.5); Mean Corpuscular Hemoglobin 30.1 pg (28.0-33.3); Mean Platelet Volume 12.2 fL (9.4-12.4); Monocytes # 0.7 K/mcL (0.0-1.3); Monocytes % 10.3 %; Platelet Count 109 K/mcL (140-400); Red Blood Count 3.75 M/mcL (4.19-5.50); Segmented Neutrophils % 77.8 %
[2019-06-27 05:42] LABS: Neutrophils # 5.5 K/mcL (1.6-8.9)
[2019-06-27 06:01] LABS: Alanine Aminotransferase 5 Units/L (7-52); Albumin 3.6 g/dL (3.5-5.7); Albumin/Globulin Ratio 1.3 (1.1-2.2); Alkaline Phosphatase 38 Units/L (34-104); Aspartate Amino Transferase 10 Units/L (13-39); BUN/Creatinine Ratio 13 (6-26); Blood Urea Nitrogen 14 mg/dL (8-23); Calcium 9.3 mg/dL (8.6-10.3); Carbon Dioxide 33 mEq/L (23-29); Chloride 100 mEq/L (98-107); Globulin 2.8 g/dL (2.4-3.5); Glucose 98 mg/dL (70-105); Magnesium 1.7 mg/dL (1.6-2.6); Osmolality,Calculated 290 (280-300); Potassium 3.5 mEq/L (3.5-5.1); Sodium 140 mEq/L (136-145); Total Protein 6.4 g/dL (6.4-8.9); eGFR For African Americans > 60 (> 60); eGFR For Non-African Americans > 60 (> 60)
[2019-06-27] MEDS: Budesonide/Formoterol 160/4.5 1 PUFF INH IH SCH ×2 (08:15→20:10)
[2019-06-27] MEDS: Piperacillin/Tazobactam 3.375 GM in 0.9 % Sodium Chloride Mini Bag 100 ML IVPB SCH ×2 (08:29→15:28)
[2019-06-27 14:00] LABS: VBG HCO3 33 mEq/L (21-27); VBG PCO2 58 mmHg (41-51); VBG PH 7.37 pH Units (7.32-7.42); VBG PO2 42 mmHg (25-50)
[2019-06-27 14:06] LABS: Hemoglobin 11.4 g/dL (12.9-16.9)
[2019-06-27 14:08] LABS: Hematocrit 38.1 % (37.5-50.1)
[2019-06-27] MEDS ORDERED: *HR* LORazepam 2 MG/ML VIAL IVP ONE (15:12)
[2019-06-27] MEDS ORDERED: predniSONE 20 MG TABLET PO ONE (15:26)
[2019-06-27] MEDS ORDERED: *HR* Dextrose 50 % in Water (Syg) 50 ML SYRINGE IVP PRN (17:42)
[2019-06-27] MEDS ORDERED: D5% in Water 1,000 ML IVC PRN (17:42)
[2019-06-27] MEDS ORDERED: Dextrose Gel 15 GM/37.5 ML TUBE PO PRN ×2 (17:42)
[2019-06-27] MEDS: Furosemide 20 MG TABLET PO SCH (18:44)
[2019-06-28] MEDS: Piperacillin/Tazobactam 3.375 GM in 0.9 % Sodium Chloride Mini Bag 100 ML IVPB SCH ×3 (01:19→16:28)
[2019-06-28 04:23] LABS: ABG Base Excess 6 mEq/L (-2 to 3); ABG HCO3 32 mEq/L (21-27); ABG Oxygen Saturation 100 % (95-98); ABG PCO2 53 mmHg (35-45); ABG PH 7.39 pH Units (7.32-7.45); ABG PO2 177 mmHg (85-104); ABG TCO2 34 mEq/L (20-26); Blood Gas Modality BiLevel
[2019-06-28] MEDS: Morphine Sulfate ER (12 HR) 30 MG TABLET.ER PO SCH ×2 (06:13→17:25)
[2019-06-28] MEDS: Doxycycline 100 MG CAPSULE PO SCH ×2 (06:13→17:25)
[2019-06-28] MEDS: *HR* Enoxaparin 40 MG/0.4 ML SYRINGE SQ SCH (06:13)
[2019-06-28] MEDS: Budesonide/Formoterol 160/4.5 1 PUFF INH IH SCH ×2 (07:49→19:57)
[2019-06-28] MEDS ORDERED: predniSONE 20 MG TABLET PO SCH (09:00)
[2019-06-28 09:36] LABS: Red Cell Distribution Width 14.1 % (11.5-14.5)
[2019-06-28 09:37] LABS: Hematocrit 40.4 % (37.5-50.1); Hemoglobin 12.5 g/dL (12.9-16.9); Immature Granulocytes % 0.2 % (0-4); Immature Platelets 7.3 % (1.1-6.1); Lymphocytes # 0.5 K/mcL (0.6-4.6); Lymphocytes % 8.9 %; Mean Corpuscular HGB Conc 30.9 g/dL (31.6-35.5); Mean Corpuscular Hemoglobin 30.2 pg (28.0-33.3); Mean Corpuscular Volume 97.6 fL (83.0-100.0); Mean Platelet Volume 11.6 fL (9.4-12.4); Monocytes # 0.2 K/mcL (0.0-1.3); Monocytes % 4.1 %; Neutrophils # 4.5 K/mcL (1.6-8.9); Platelet Count 113 K/mcL (140-400); Red Blood Count 4.14 M/mcL (4.19-5.50); Segmented Neutrophils % 86.8 %; White Blood Count 5.2 K/mcL (4.3-11.1)
[2019-06-28 09:51] LABS: BUN/Creatinine Ratio 17 (6-26); Blood Urea Nitrogen 16 mg/dL (8-23); Calcium 9.7 mg/dL (8.6-10.3); Carbon Dioxide 31 mEq/L (23-29); Chloride 101 mEq/L (98-107); Glucose 159 mg/dL (70-105); Osmolality,Calculated 295 (280-300); Potassium 3.6 mEq/L (3.5-5.1); Sodium 140 mEq/L (136-145); eGFR For African Americans > 60 (> 60); eGFR For Non-African Americans > 60 (> 60)
[2019-06-28] MEDS: Furosemide 20 MG TABLET PO SCH (10:46)
[2019-06-28] MEDS: Morphine Sulfate Immed Rel 15 MG TABLET PO PRN (10:55)
[2019-06-28 11:25] LABS: ABG Base Excess 7 mEq/L (-2 to 3); ABG HCO3 33 mEq/L (21-27); ABG Oxygen Saturation 96 % (95-98); ABG PCO2 53 mmHg (35-45); ABG PO2 87 mmHg (85-104); ABG TCO2 34 mEq/L (20-26)
[2019-06-29] MEDS: Piperacillin/Tazobactam 3.375 GM in 0.9 % Sodium Chloride Mini Bag 100 ML IVPB SCH ×3 (01:30→15:35)
[2019-06-29 05:47] LABS: Immature Granulocytes % 0.4 % (0-4); Mean Corpuscular HGB Conc 30.8 g/dL (31.6-35.5); Mean Corpuscular Hemoglobin 29.6 pg (28.0-33.3); Mean Corpuscular Volume 96.1 fL (83.0-100.0); Red Cell Distribution Width 14.1 % (11.5-14.5)
[2019-06-29 05:48] LABS: Hematocrit 37.3 % (37.5-50.1); Hemoglobin 11.5 g/dL (12.9-16.9); Immature Platelets 7.2 % (1.1-6.1); Lymphocytes # 0.4 K/mcL (0.6-4.6); Lymphocytes % 8.1 %; Mean Platelet Volume 11.7 fL (9.4-12.4); Monocytes # 0.3 K/mcL (0.0-1.3); Monocytes % 6.8 %; Platelet Count 127 K/mcL (140-400); Red Blood Count 3.88 M/mcL (4.19-5.50); Segmented Neutrophils % 84.7 %; White Blood Count 4.7 K/mcL (4.3-11.1)
[2019-06-29] MEDS: Morphine Sulfate ER (12 HR) 30 MG TABLET.ER PO SCH ×2 (05:58→17:40)
[2019-06-29] MEDS: Doxycycline 100 MG CAPSULE PO SCH ×2 (05:58→17:40)
[2019-06-29] MEDS: *HR* Enoxaparin 40 MG/0.4 ML SYRINGE SQ SCH (05:59)
[2019-06-29 06:06] LABS: BUN/Creatinine Ratio 22 (6-26); Blood Urea Nitrogen 20 mg/dL (8-23); Calcium 9.7 mg/dL (8.6-10.3); Carbon Dioxide 31 mEq/L (23-29); Chloride 101 mEq/L (98-107); Glucose 135 mg/dL (70-105); Osmolality,Calculated 301 (280-300); Potassium 3.9 mEq/L (3.5-5.1); Sodium 143 mEq/L (136-145); eGFR For African Americans > 60 (> 60); eGFR For Non-African Americans > 60 (> 60)
[2019-06-29] MEDS: Furosemide 20 MG TABLET PO SCH (07:48)
[2019-06-29] MEDS ORDERED: allopurinoL 100 MG TABLET PO PRN (08:14)
[2019-06-29] MEDS: Budesonide/Formoterol 160/4.5 1 PUFF INH IH SCH ×2 (11:28→19:58)
[2019-06-29] MEDS: Morphine Sulfate Immed Rel 15 MG TABLET PO PRN (21:45)
[2019-06-30] MEDS: Piperacillin/Tazobactam 3.375 GM in 0.9 % Sodium Chloride Mini Bag 100 ML IVPB SCH ×2 (00:02→08:13)
[2019-06-30] MEDS: *HR* Enoxaparin 40 MG/0.4 ML SYRINGE SQ SCH (05:44)
[2019-06-30] MEDS: Morphine Sulfate ER (12 HR) 30 MG TABLET.ER PO SCH ×2 (05:44→17:16)
[2019-06-30] MEDS: Doxycycline 100 MG CAPSULE PO SCH ×2 (05:45→17:16)
[2019-06-30 06:38] LABS: BUN/Creatinine Ratio 22 (6-26); Blood Urea Nitrogen 23 mg/dL (8-23); Calcium 9.8 mg/dL (8.6-10.3); Carbon Dioxide 27 mEq/L (23-29); Chloride 106 mEq/L (98-107); Glucose 94 mg/dL (70-105); Magnesium 1.5 mg/dL (1.6-2.6); Osmolality,Calculated 299 (280-300); Potassium 4.1 mEq/L (3.5-5.1); Sodium 143 mEq/L (136-145); eGFR For African Americans > 60 (> 60); eGFR For Non-African Americans > 60 (> 60)
[2019-06-30] MEDS: Furosemide 20 MG TABLET PO SCH (08:13)
[2019-06-30] MEDS: Budesonide/Formoterol 160/4.5 1 PUFF INH IH SCH (10:45)
[2019-06-30 14:36] VITALS: BP 135/81
[2019-06-30] MEDS ORDERED: Isovue-300 50ML VIAL IVP ONE (15:50)
== END 2019-06-30 17:29 | disposition home health service (06) | DRG 871 ==
LOC: 2NENU 15:33 → EMEROOARM 15:33 → 2NENU 17:48 → SUATTDRO 17:49 → 3ANU 06-24 00:42
PROVIDERS: ADMIT Internal Medicine; ATTEND Internal Medicine

== ENCOUNTER 2019-07-16 12:35 | Observation (INO) ==
[2019-07-16] MEDS ORDERED: Isovue-370 500 ML BOTTLE IVP ONE (12:56)
[2019-07-16 13:19] LABS: Basophils % 0.2 %; Eosinophils # 0.1 K/mcL (0.0-0.6); Eosinophils % 0.8 %; Hemoglobin 11.8 g/dL (12.9-16.9); Immature Granulocytes % 0.5 % (0-4); Lymphocytes # 0.8 K/mcL (0.6-4.6); Lymphocytes % 9.2 %; Mean Corpuscular HGB Conc 31.9 g/dL (31.6-35.5); Mean Corpuscular Hemoglobin 29.2 pg (28.0-33.3); Mean Corpuscular Volume 91.6 fL (83.0-100.0); Mean Platelet Volume 11.5 fL (9.4-12.4); Monocytes # 0.7 K/mcL (0.0-1.3); Monocytes % 8.4 %; Neutrophils # 7.1 K/mcL (1.6-8.9); Platelet Count 157 K/mcL (140-400); Red Blood Count 4.04 M/mcL (4.19-5.50); Red Cell Distribution Width 13.6 % (11.5-14.5); Segmented Neutrophils % 80.9 %; White Blood Count 8.8 K/mcL (4.3-11.1)
[2019-07-16 13:21] LABS: INR 1.3; Prothrombin Time 14.7 Seconds (9.4-12.1)
[2019-07-16 13:40] LABS: Alanine Aminotransferase 8 Units/L (7-52); Albumin 3.2 g/dL (3.5-5.7); Alkaline Phosphatase 59 Units/L (34-104); Aspartate Amino Transferase 11 Units/L (13-39); BUN/Creatinine Ratio 15 (6-26); Bilirubin,Total 1.1 mg/dL (0.3-1.0); Blood Urea Nitrogen 14 mg/dL (8-23); Calcium 9.5 mg/dL (8.6-10.3); Carbon Dioxide 28 mEq/L (23-29); Chloride 100 mEq/L (98-107); Creatine Kinase 21 Units/L (30-223); Globulin 3.2 g/dL (2.4-3.5); Glucose 104 mg/dL (70-105); Magnesium 1.2 mg/dL (1.6-2.6); Osmolality,Calculated 285 (280-300); Potassium 3.4 mEq/L (3.5-5.1); Sodium 137 mEq/L (136-145); Total Protein 6.4 g/dL (6.4-8.9); Troponin I < 0.03 ng/mL (< 0.04); eGFR For African Americans > 60 (> 60); eGFR For Non-African Americans > 60 (> 60)
[2019-07-16 13:52] LABS: Thyroid Stimulating Hormone 8.089 mcIU/mL (0.340-5.600)
[2019-07-16 14:10] LABS: Bilirubin,Urine Small (Negative); Blood,Urine Negative (Negative); Clarity,Urine Cloudy (Clear); Color,Urine Dark Yellow (Yellow); Glucose,Urine (UA) Normal (Normal); Ketones,Urine Trace mg/dL (Negative); Leukocyte Esterase,Urine Trace (Negative); Nitrite,Urine Negative (Negative); Protein,Urine Trace mg/dL (Neg-Trace); Specific Gravity,Urine 1.018 (1.010-1.025); Urobilinogen,Urine Normal (Normal)
[2019-07-16 14:15] LABS: Bacteria,Urine None Seen per hpf (None-Few); RBC,Urine 0-3 per hpf (0-3); Squamous Epithelial Cell,Urine Many per lpf (None-Few)
[2019-07-16 14:36] LABS: Granular Casts,Urine Few per lpf (None Seen); Hyaline Casts,Urine Few per lpf (None-Few); Mucus,Urine Few per lpf (Few)
[2019-07-16 14:37] LABS: Transitional Epi Cells,Urine Few per hpf (None-Few)
[2019-07-16] MEDS ORDERED: Albuterol 2.5 MG/3 ML NEBULIZER IH PRN (16:33)
[2019-07-16] MEDS ORDERED: allopurinoL 100 MG TABLET PO PRN (16:33)
[2019-07-16] MEDS ORDERED: Ondansetron 4 MG/2 ML VIAL IVP PRN (16:43)
[2019-07-16] MEDS ORDERED: Naloxone 0.4 MG/ML INJ IVP PRN (16:43)
[2019-07-16 17:42] LABS: Uric Acid 5.9 mg/dL (2.3-7.6)
[2019-07-16 17:45] LABS: C-Reactive Protein 245 mg/L (Less than 10)
[2019-07-16] MEDS: Morphine Sulfate ER (12 HR) 30 MG TABLET.ER PO SCH (17:51)
[2019-07-16] MEDS: predniSONE 20 MG TABLET PO SCH (17:51)
[2019-07-16] MEDS: Albuterol 2.5 MG/3 ML NEBULIZER IH SCH (22:12)
[2019-07-16] MEDS: Morphine Sulfate Immed Rel 15 MG TABLET PO PRN (23:13)
[2019-07-17] MEDS: Albuterol 2.5 MG/3 ML NEBULIZER IH SCH ×4 (03:59→21:59)
[2019-07-17 05:23] LABS: Basophils % 0.2 %; Hematocrit 36.7 % (37.5-50.1); Hemoglobin 11.3 g/dL (12.9-16.9); Immature Granulocytes % 0.5 % (0-4); Lymphocytes # 0.4 K/mcL (0.6-4.6); Lymphocytes % 9.7 %; Mean Corpuscular HGB Conc 30.8 g/dL (31.6-35.5); Mean Corpuscular Hemoglobin 28.5 pg (28.0-33.3); Mean Corpuscular Volume 92.7 fL (83.0-100.0); Mean Platelet Volume 11.1 fL (9.4-12.4); Monocytes # 0.1 K/mcL (0.0-1.3); Monocytes % 2.7 %; Neutrophils # 3.6 K/mcL (1.6-8.9); Platelet Count 144 K/mcL (140-400); Red Blood Count 3.96 M/mcL (4.19-5.50); Red Cell Distribution Width 13.3 % (11.5-14.5); Segmented Neutrophils % 86.9 %
[2019-07-17 05:29] LABS: White Blood Count 4.1 K/mcL (4.3-11.1)
[2019-07-17] MEDS: Morphine Sulfate ER (12 HR) 30 MG TABLET.ER PO SCH ×2 (05:47→17:02)
[2019-07-17] MEDS: *HR* Enoxaparin 40 MG/0.4 ML SYRINGE SQ SCH (05:47)
[2019-07-17 05:48] LABS: BUN/Creatinine Ratio 18 (6-26); Blood Urea Nitrogen 14 mg/dL (8-23); Calcium 9.5 mg/dL (8.6-10.3); Carbon Dioxide 26 mEq/L (23-29); Chloride 102 mEq/L (98-107); Glucose 112 mg/dL (70-105); Magnesium 1.7 mg/dL (1.6-2.6); Osmolality,Calculated 285 (280-300); Potassium 4.5 mEq/L (3.5-5.1); Sodium 137 mEq/L (136-145); eGFR For African Americans > 60 (> 60); eGFR For Non-African Americans > 60 (> 60)
[2019-07-17 06:05] LABS: Folate 8.5 ng/mL (3.0-16.0)
[2019-07-17] MEDS: Cyanocobalamin (B-12) 1,000 MCG TABLET PO SCH (08:44)
[2019-07-17] MEDS: predniSONE 20 MG TABLET PO SCH (08:44)
[2019-07-17] MEDS: Furosemide 20 MG TABLET PO SCH (08:44)
[2019-07-17] MEDS: Morphine Sulfate Immed Rel 15 MG TABLET PO PRN (08:46)
[2019-07-18] MEDS: Morphine Sulfate Immed Rel 15 MG TABLET PO PRN ×2 (01:40→15:26)
[2019-07-18 02:43] LABS: Hematocrit 33.6 % (37.5-50.1); Hemoglobin 10.5 g/dL (12.9-16.9); Mean Corpuscular HGB Conc 31.3 g/dL (31.6-35.5); Mean Corpuscular Hemoglobin 28.7 pg (28.0-33.3); Mean Corpuscular Volume 91.8 fL (83.0-100.0); Mean Platelet Volume 11.4 fL (9.4-12.4); Platelet Count 147 K/mcL (140-400); Red Blood Count 3.66 M/mcL (4.19-5.50); Red Cell Distribution Width 13.3 % (11.5-14.5); White Blood Count 4.5 K/mcL (4.3-11.1)
[2019-07-18 03:01] LABS: BUN/Creatinine Ratio 23 (6-26); Blood Urea Nitrogen 19 mg/dL (8-23); Calcium 9.1 mg/dL (8.6-10.3); Carbon Dioxide 28 mEq/L (23-29); Chloride 103 mEq/L (98-107); Glucose 131 mg/dL (70-105); Osmolality,Calculated 292 (280-300); Potassium 3.8 mEq/L (3.5-5.1); Sodium 139 mEq/L (136-145); eGFR For African Americans > 60 (> 60); eGFR For Non-African Americans > 60 (> 60)
[2019-07-18] MEDS: Albuterol 2.5 MG/3 ML NEBULIZER IH SCH ×3 (03:27→15:59)
[2019-07-18] MEDS: *HR* Enoxaparin 40 MG/0.4 ML SYRINGE SQ SCH (06:15)
[2019-07-18] MEDS: Morphine Sulfate ER (12 HR) 30 MG TABLET.ER PO SCH (06:15)
[2019-07-18 08:16] LABS: Alanine Aminotransferase 7 Units/L (7-52); Albumin 3.2 g/dL (3.5-5.7); Alkaline Phosphatase 51 Units/L (34-104); Aspartate Amino Transferase 11 Units/L (13-39); Bilirubin,Direct 0.1 mg/dL (0.0-0.2); Bilirubin,Indirect 0.3 mg/dL (0.0-1.0); Bilirubin,Total 0.4 mg/dL (0.3-1.0); Globulin 3.1 g/dL (2.4-3.5); Total Protein 6.3 g/dL (6.4-8.9)
[2019-07-18] MEDS: predniSONE 20 MG TABLET PO SCH (08:59)
[2019-07-18] MEDS: Cyanocobalamin (B-12) 1,000 MCG TABLET PO SCH (08:59)
[2019-07-18] MEDS: Furosemide 20 MG TABLET PO SCH (08:59)
[2019-07-18 11:32] VITALS: BP 114/69
== END 2019-07-18 16:32 | disposition home health service (06) ==
LOC: 3ANU 12:35 → EMEROOARM 12:35 → SUATTDRO 16:48 → 3ANU 17:39
PROVIDERS: ADMIT Internal Medicine; ATTEND Internal Medicine

== ENCOUNTER 2021-03-27 20:57 | Inpatient (IN) ==
[2021-03-27] MEDS ORDERED: 0.9 % Sodium Chloride 250 ML ONE (21:04)
[2021-03-27] MEDS ORDERED: *HR* Norepinephrine 4 MG/4 ML VIAL IVC ONE (21:05)
[2021-03-27] MEDS: Norepinephrine 4 MG/254 ML IV.SOLN IVC SCH (21:10)
[2021-03-27 21:16] LABS: Basophils % 0.2 %; Eosinophils % 0.2 %; Hematocrit 41.5 % (37.5-50.1); Hemoglobin 13.6 g/dL (12.9-16.9); Immature Granulocytes % 0.5 % (0-4); Lymphocytes # 0.2 K/mcL (0.6-4.6); Lymphocytes % 3.7 %; Mean Corpuscular HGB Conc 32.8 g/dL (31.6-35.5); Mean Corpuscular Hemoglobin 29.4 pg (28.0-33.3); Mean Corpuscular Volume 89.8 fL (83.0-100.0); Mean Platelet Volume 11.8 fL (9.4-12.4); Monocytes # 0.2 K/mcL (0.0-1.3); Monocytes % 3.5 %; Neutrophils # 5.2 K/mcL (1.6-8.9); Platelet Count 208 K/mcL (140-400); Red Blood Count 4.62 M/mcL (4.19-5.50); Red Cell Distribution Width 15.2 % (11.5-14.5); Segmented Neutrophils % 91.9 %; White Blood Count 5.6 K/mcL (4.3-11.1)
[2021-03-27] MEDS ORDERED: Vancomycin 1,500 MG/265 ML IV.SOLN IVPB ONE (21:17)
[2021-03-27 21:24] LABS: INR 1.4; Prothrombin Time 15.2 Seconds (9.4-12.1)
[2021-03-27] MEDS ORDERED: *HR* Midazolam HCl 5 MG/5 ML VIAL IVP ONE (21:26)
[2021-03-27] MEDS: *HR* Midazolam HCl 5 MG/5 ML VIAL IVP PRN ×2 (21:30→22:35)
[2021-03-27 21:32] LABS: Alanine Aminotransferase 16 Units/L (7-52); Albumin 3.2 g/dL (3.5-5.7); Albumin/Globulin Ratio 1.2 (1.1-2.2); Alkaline Phosphatase 77 Units/L (34-104); Aspartate Amino Transferase 20 Units/L (13-39); BUN/Creatinine Ratio 16 (6-26); Bilirubin,Direct 0.7 mg/dL (0.0-0.2); Bilirubin,Indirect 1.1 mg/dL (0.0-1.0); Bilirubin,Total 1.8 mg/dL (0.3-1.0); Blood Urea Nitrogen 23 mg/dL (8-23); Calcium 8.7 mg/dL (8.6-10.3); Carbon Dioxide 25 mEq/L (23-29); Chloride 101 mEq/L (98-107); Globulin 2.7 g/dL (2.4-3.5); Glucose 98 mg/dL (70-105); Lipase 13 Units/L (11-82); Magnesium 1.5 mg/dL (1.6-2.6); Osmolality,Calculated 290 (280-300); Potassium 4.2 mEq/L (3.5-5.1); Sodium 138 mEq/L (136-145); Total Protein 5.9 g/dL (6.4-8.9); Troponin I < 0.03 ng/mL (< 0.04); eGFR For African Americans > 60 (> 60); eGFR For Non-African Americans 50 (> 60)
[2021-03-27] MEDS ORDERED: Piperacillin/Tazobactam 3.375 GM in 0.9 % Sodium Chloride Mini Bag 100 ML IVPB ONE (22:00)
[2021-03-27 22:08] LABS: ABG Base Excess -1 mEq/L (-2 to 3); ABG HCO3 24 mEq/L (21-27); ABG Oxygen Saturation 93 % (95-98); ABG PCO2 41 mmHg (35-45); ABG PH 7.38 pH Units (7.32-7.45); ABG PO2 69 mmHg (85-104); ABG TCO2 25 mEq/L (20-26)
[2021-03-27] MEDS ORDERED: 0.9 % Sodium Chloride 1,000 ML IVC ONE (22:09)
[2021-03-27] MEDS ORDERED: Isovue-370 500 ML BOTTLE IVP ONE (22:10)
[2021-03-27 22:52] LABS: Bilirubin,Urine Small (Negative); Blood,Urine Negative (Negative); Clarity,Urine Clear (Clear); Color,Urine Yellow (Yellow); Glucose,Urine (UA) Normal (Normal); Ketones,Urine Trace mg/dL (Negative); Leukocyte Esterase,Urine Negative (Negative); Mucus,Urine Few per lpf (None-Few); Nitrite,Urine Negative (Negative); PH,Urine 5.5 pH Units (5.0-8.0); Protein,Urine 30 mg/dL (Neg-Trace); RBC,Urine 0-3 per hpf (0-3); Specific Gravity,Urine 1.023 (1.010-1.025); Squamous Epithelial Cell,Urine Few per hpf (None-Few); WBC,Urine 0-3 per hpf (0-3)
[2021-03-28] MEDS ORDERED: Acetaminophen 650 MG RECTAL SUPP RC ONE (01:27)
[2021-03-28 01:33] LABS: ABG Base Excess -2 mEq/L (-2 to 3); ABG HCO3 23 mEq/L (21-27); ABG Oxygen Saturation 97 % (95-98); ABG PCO2 40 mmHg (35-45); ABG PH 7.37 pH Units (7.32-7.45); ABG PO2 88 mmHg (85-104); ABG TCO2 24 mEq/L (20-26)
[2021-03-28] MEDS ORDERED: Magnesium Sulfate 1 GM/102 ML PIGGYBACK IVPB ONE (02:48)
[2021-03-28] MEDS ORDERED: Naloxone 0.4 MG/ML INJ IVP PRN (03:32)
[2021-03-28] MEDS ORDERED: Ondansetron 4 MG/2 ML VIAL IVP PRN (03:37)
[2021-03-28 03:48] LABS: Adenovirus Not Detected (Not Detect); Coronavirus 229E Not Detected (Not Detect); Coronavirus HKU1 Not Detected (Not Detect); Coronavirus NL63 Not Detected (Not Detect); Coronavirus OC43 Not Detected (Not Detect)
[2021-03-28 03:50] LABS: Bordetella Pertussis Not Detected (Not Detect); Chlamydophila pneumoniae Not Detected (Not Detect); Human Metapneumovirus Not Detected (Not Detect); Human Rhinovirus/Enterovirus Not Detected (Not Detect); Influenza A Subtype 2009 H1 Not Detected (Not Detect); Influenza B Not Detected (Not Detect); Mycoplasma pneumoniae Not Detected (Not Detect); Parainfluenza Virus 1 Not Detected (Not Detect); Parainfluenza Virus 2 Not Detected (Not Detect); Parainfluenza Virus 3 Not Detected (Not Detect); Parainfluenza Virus 4 Not Detected (Not Detect); Respiratory Syncytial Virus Not Detected (Not Detect); SARS-CoV-2 DETECTED (Not Detect)
[2021-03-28] MEDS: Nystatin POWDER 30 GM BOTTLE TP SCH ×3 (05:23→19:57)
[2021-03-28 05:25] LABS: Basophils % 0.2 %; Hematocrit 39.9 % (37.5-50.1); Hemoglobin 12.8 g/dL (12.9-16.9); Lymphocytes # 0.5 K/mcL (0.6-4.6); Lymphocytes % 5.6 %; Mean Corpuscular HGB Conc 32.1 g/dL (31.6-35.5); Mean Corpuscular Volume 93.4 fL (83.0-100.0); Mean Platelet Volume 11.8 fL (9.4-12.4); Monocytes # 0.6 K/mcL (0.0-1.3); Monocytes % 6.6 %; Neutrophils # 7.5 K/mcL (1.6-8.9); Platelet Count 233 K/mcL (140-400); Red Blood Count 4.27 M/mcL (4.19-5.50); Red Cell Distribution Width 15.7 % (11.5-14.5); Segmented Neutrophils % 86.6 %
[2021-03-28 05:28] LABS: White Blood Count 8.7 K/mcL (4.3-11.1)
[2021-03-28 05:34] LABS: D-Dimer 1955 ng/mLFEU (0-500)
[2021-03-28 05:36] LABS: Fibrinogen 787 mg/dL (169-393)
[2021-03-28 05:45] LABS: Alanine Aminotransferase 17 Units/L (7-52); Albumin 2.9 g/dL (3.5-5.7); Albumin/Globulin Ratio 1.2 (1.1-2.2); Alkaline Phosphatase 84 Units/L (34-104); Aspartate Amino Transferase 28 Units/L (13-39); Bilirubin,Direct 1.3 mg/dL (0.0-0.2); Bilirubin,Indirect 1.3 mg/dL (0.0-1.0); Bilirubin,Total 2.6 mg/dL (0.3-1.0); C-Reactive Protein 204 mg/L (Less than 10); Globulin 2.5 g/dL (2.4-3.5); Lactate Dehydrogenase 170 Units/L (140-271); Total Protein 5.4 g/dL (6.4-8.9)
[2021-03-28 05:46] LABS: Calcium 8.2 mg/dL (8.6-10.3); Magnesium 1.6 mg/dL (1.6-2.6); Phosphorous 4.8 mg/dL (2.7-4.5); Potassium 4.2 mEq/L (3.5-5.1); Troponin I 0.03 ng/mL (< 0.04)
[2021-03-28 05:48] LABS: Polychromasia 1+ (Not Present)
[2021-03-28 05:49] LABS: Platelet Estimate Normal (Normal); Tear Drop Cells 1+ (Not Present)
[2021-03-28 06:07] LABS: Ferritin 628 ng/mL (20-250); Thyroid Stimulating Hormone 1.738 mcIU/mL (0.340-5.600)
[2021-03-28] MEDS: Norepinephrine 4 MG/254 ML IV.SOLN IVC SCH ×2 (06:16→15:10)
[2021-03-28] MEDS: dexAMETHasone 4 MG TABLET PO SCH (08:45)
[2021-03-28] MEDS ORDERED: Vancomycin 1,750 MG in 0.9 % Sodium Chloride 250 ML IVPB SCH (14:00)
[2021-03-28] MEDS: *HR* Heparin 5,000 UNIT/ML VIAL SQ SCH ×2 (15:09→21:07)
[2021-03-28] MEDS: Piperacillin/Tazobactam 3.375 GM in 0.9 % Sodium Chloride Mini Bag 100 ML IVPB SCH ×2 (15:10→23:24)
[2021-03-28] MEDS ORDERED: Vancomycin 1,750 MG/517.5 ML IV.SOLN IVPB ONE (23:00)
[2021-03-29 03:36] LABS: Hematocrit 32.8 % (37.5-50.1); Mean Corpuscular Hemoglobin 29.7 pg (28.0-33.3); Mean Corpuscular Volume 92.9 fL (83.0-100.0); Mean Platelet Volume 10.7 fL (9.4-12.4); Platelet Count 149 K/mcL (140-400); Red Blood Count 3.53 M/mcL (4.19-5.50); Red Cell Distribution Width 15.3 % (11.5-14.5)
[2021-03-29 03:41] LABS: Hemoglobin 10.5 g/dL (12.9-16.9); White Blood Count 3.5 K/mcL (4.3-11.1)
[2021-03-29 03:48] LABS: D-Dimer 1023 ng/mLFEU (0-500)
[2021-03-29 03:50] LABS: Fibrinogen 880 mg/dL (169-393)
[2021-03-29 03:55] LABS: VBG Ionized Calcium 1.15 mmol/L (1.15-1.35)
[2021-03-29 03:57] LABS: Alanine Aminotransferase 15 Units/L (7-52); Albumin 2.7 g/dL (3.5-5.7); Albumin/Globulin Ratio 1.1 (1.1-2.2); Alkaline Phosphatase 60 Units/L (34-104); Aspartate Amino Transferase 24 Units/L (13-39); BUN/Creatinine Ratio 20 (6-26); Bilirubin,Total 1.5 mg/dL (0.3-1.0); Blood Urea Nitrogen 25 mg/dL (8-23); Calcium 8.1 mg/dL (8.6-10.3); Carbon Dioxide 27 mEq/L (23-29); Chloride 105 mEq/L (98-107); Globulin 2.5 g/dL (2.4-3.5); Glucose 124 mg/dL (70-105); Magnesium 1.8 mg/dL (1.6-2.6); Osmolality,Calculated 294 (280-300); Phosphorous 3.6 mg/dL (2.7-4.5); Sodium 139 mEq/L (136-145); Total Protein 5.2 g/dL (6.4-8.9); eGFR For African Americans > 60 (> 60); eGFR For Non-African Americans 59 (> 60)
[2021-03-29 04:15] LABS: Ferritin 727 ng/mL (20-250)
[2021-03-29 04:35] LABS: Lymphocytes # 0.6 K/mcL (0.6-4.6); Monocytes # 0.1 K/mcL (0.0-1.3); Neutrophils # 2.5 K/mcL (1.6-8.9)
[2021-03-29 04:36] LABS: Platelet Estimate Normal (Normal)
[2021-03-29] MEDS: *HR* Heparin 5,000 UNIT/ML VIAL SQ SCH ×3 (05:00→21:55)
[2021-03-29] MEDS ORDERED: Cholecalciferol (D-3) 1,000 UNIT (25MCG) TABLET PO SCH (09:00)
[2021-03-29] MEDS: dexAMETHasone 4 MG TABLET PO SCH (09:18)
[2021-03-29] MEDS: Piperacillin/Tazobactam 3.375 GM in 0.9 % Sodium Chloride Mini Bag 100 ML IVPB SCH ×2 (09:19→17:25)
[2021-03-29] MEDS: Nystatin POWDER 30 GM BOTTLE TP SCH ×2 (10:00→21:10)
[2021-03-29] MEDS ORDERED: Vancomycin 1,250 MG/262.5 ML IV.SOLN IVPB ONE (16:00)
[2021-03-29] MEDS ORDERED: Ondansetron 4 MG/2 ML VIAL IVP PRN (18:15)
[2021-03-29] MEDS ORDERED: Naloxone 0.4 MG/ML INJ IVP PRN (18:15)
[2021-03-29] MEDS ORDERED: Ipratropium/Albuterol Neb 3 ML IH PRN (18:15)
[2021-03-29] MEDS: Morphine Sulfate ER (12 HR) 30 MG TABLET.ER PO SCH (19:03)
[2021-03-30] MEDS: Morphine Sulfate Immed Rel 15 MG TABLET PO PRN ×2 (00:40→22:29)
[2021-03-30] MEDS: Piperacillin/Tazobactam 3.375 GM in 0.9 % Sodium Chloride Mini Bag 100 ML IVPB SCH ×4 (00:41→22:28)
[2021-03-30] MEDS: Morphine Sulfate ER (12 HR) 30 MG TABLET.ER PO SCH ×2 (05:44→18:58)
[2021-03-30] MEDS: *HR* Heparin 5,000 UNIT/ML VIAL SQ SCH ×3 (05:44→22:28)
[2021-03-30 05:59] LABS: Basophils % 0.2 %; Hematocrit 31.2 % (37.5-50.1); Hemoglobin 10.2 g/dL (12.9-16.9); Immature Granulocytes % 4.3 % (0-4); Lymphocytes # 0.3 K/mcL (0.6-4.6); Lymphocytes % 5.9 %; Mean Corpuscular HGB Conc 32.7 g/dL (31.6-35.5); Mean Corpuscular Hemoglobin 29.5 pg (28.0-33.3); Mean Corpuscular Volume 90.2 fL (83.0-100.0); Monocytes # 0.3 K/mcL (0.0-1.3); Platelet Count 195 K/mcL (140-400); Red Blood Count 3.46 M/mcL (4.19-5.50); Red Cell Distribution Width 15.5 % (11.5-14.5); Segmented Neutrophils % 82.6 %; White Blood Count 4.9 K/mcL (4.3-11.1)
[2021-03-30 06:04] LABS: Neutrophils # 4.1 K/mcL (1.6-8.9)
[2021-03-30 06:11] LABS: BUN/Creatinine Ratio 27 (6-26); Blood Urea Nitrogen 27 mg/dL (8-23); Calcium 8.5 mg/dL (8.6-10.3); Carbon Dioxide 26 mEq/L (23-29); Chloride 106 mEq/L (98-107); Glucose 170 mg/dL (70-105); Osmolality,Calculated 293 (280-300); Potassium 4.1 mEq/L (3.5-5.1); Sodium 137 mEq/L (136-145); eGFR For African Americans > 60 (> 60); eGFR For Non-African Americans > 60 (> 60)
[2021-03-30] MEDS: Furosemide 20 MG TABLET PO SCH (08:59)
[2021-03-30] MEDS: Cholecalciferol (D-3) 1,000 UNIT (25MCG) TABLET PO SCH (09:00)
[2021-03-30] MEDS: dexAMETHasone 4 MG TABLET PO SCH (09:00)
[2021-03-30] MEDS ORDERED: 0.9 % Sodium Chloride 1,000 ML IVC ONE (09:52)
[2021-03-30] MEDS ORDERED: Ipratropium 1 PUFF INHALER IH ONE (11:38)
[2021-03-30] MEDS: Nystatin POWDER 30 GM BOTTLE TP SCH ×3 (11:57→22:29)
[2021-03-31 02:07] LABS: Hematocrit 32.7 % (37.5-50.1); Hemoglobin 10.5 g/dL (12.9-16.9); Mean Corpuscular HGB Conc 32.1 g/dL (31.6-35.5); Mean Corpuscular Volume 93.4 fL (83.0-100.0); Mean Platelet Volume 11.9 fL (9.4-12.4); Platelet Count 197 K/mcL (140-400); Red Cell Distribution Width 15.2 % (11.5-14.5); White Blood Count 4.9 K/mcL (4.3-11.1)
[2021-03-31 02:24] LABS: BUN/Creatinine Ratio 26 (6-26); Blood Urea Nitrogen 28 mg/dL (8-23); C-Reactive Protein 70 mg/L (Less than 10); Calcium 8.5 mg/dL (8.6-10.3); Carbon Dioxide 27 mEq/L (23-29); Chloride 105 mEq/L (98-107); Glucose 167 mg/dL (70-105); Osmolality,Calculated 295 (280-300); Potassium 4.4 mEq/L (3.5-5.1); Sodium 138 mEq/L (136-145); eGFR For African Americans > 60 (> 60); eGFR For Non-African Americans > 60 (> 60)
[2021-03-31] MEDS: Morphine Sulfate ER (12 HR) 30 MG TABLET.ER PO SCH ×2 (05:26→18:15)
[2021-03-31] MEDS: *HR* Heparin 5,000 UNIT/ML VIAL SQ SCH ×3 (05:26→20:22)
[2021-03-31 05:37] LABS: Lymphocytes # 0.7 K/mcL (0.6-4.6); Monocytes # 0.4 K/mcL (0.0-1.3); Neutrophils # 3.8 K/mcL (1.6-8.9); Platelet Estimate Normal (Normal)
[2021-03-31] MEDS: Cholecalciferol (D-3) 1,000 UNIT (25MCG) TABLET PO SCH (09:11)
[2021-03-31] MEDS: dexAMETHasone 4 MG TABLET PO SCH (09:11)
[2021-03-31] MEDS: Furosemide 20 MG TABLET PO SCH (09:12)
[2021-03-31] MEDS: Piperacillin/Tazobactam 3.375 GM in 0.9 % Sodium Chloride Mini Bag 100 ML IVPB SCH ×2 (09:14→16:27)
[2021-03-31] MEDS: Nystatin POWDER 30 GM BOTTLE TP SCH ×4 (09:15→21:59)
[2021-03-31] MEDS: Norepinephrine 4 MG/254 ML IV.SOLN IVC SCH (21:59)
[2021-04-01] MEDS: Piperacillin/Tazobactam 3.375 GM in 0.9 % Sodium Chloride Mini Bag 100 ML IVPB SCH ×4 (00:19→23:41)
[2021-04-01] MEDS: *HR* Heparin 5,000 UNIT/ML VIAL SQ SCH ×3 (05:22→20:25)
[2021-04-01] MEDS: Morphine Sulfate ER (12 HR) 30 MG TABLET.ER PO SCH ×2 (05:22→18:16)
[2021-04-01 05:54] LABS: Hematocrit 36.7 % (37.5-50.1); Hemoglobin 11.4 g/dL (12.9-16.9); Mean Corpuscular HGB Conc 31.1 g/dL (31.6-35.5); Mean Corpuscular Hemoglobin 30.1 pg (28.0-33.3); Mean Corpuscular Volume 96.8 fL (83.0-100.0); Mean Platelet Volume 11.7 fL (9.4-12.4); Nucleated Red Blood Cells 1.1 /100 WBC (0); Platelet Count 211 K/mcL (140-400); Red Blood Count 3.79 M/mcL (4.19-5.50); Red Cell Distribution Width 14.9 % (11.5-14.5)
[2021-04-01 06:13] LABS: White Blood Count 8.5 K/mcL (4.3-11.1)
[2021-04-01 06:56] LABS: Lymphocytes # 1.1 K/mcL (0.6-4.6); Monocytes # 1.4 K/mcL (0.0-1.3)
[2021-04-01 06:57] LABS: Reactive Lymphocytes Present (Not Present)
[2021-04-01 07:07] LABS: BUN/Creatinine Ratio 29 (6-26); Blood Urea Nitrogen 32 mg/dL (8-23); Carbon Dioxide 21 mEq/L (23-29); Chloride 107 mEq/L (98-107); Glucose 126 mg/dL (70-105); Osmolality,Calculated 290 (280-300); Potassium 4.8 mEq/L (3.5-5.1); Sodium 136 mEq/L (136-145); eGFR For African Americans > 60 (> 60); eGFR For Non-African Americans > 60 (> 60)
[2021-04-01] MEDS: Furosemide 20 MG TABLET PO SCH (10:22)
[2021-04-01] MEDS: Cholecalciferol (D-3) 1,000 UNIT (25MCG) TABLET PO SCH (10:22)
[2021-04-01] MEDS: dexAMETHasone 4 MG TABLET PO SCH (10:23)
[2021-04-01] MEDS: Nystatin POWDER 30 GM BOTTLE TP SCH ×3 (10:24→20:25)
[2021-04-01] MEDS: Nystatin SUSP 5 ML UD.LIQ PO SCH ×3 (12:58→20:25)
[2021-04-02 02:15] LABS: Hematocrit 35.3 % (37.5-50.1); Hemoglobin 11.3 g/dL (12.9-16.9); Mean Corpuscular Hemoglobin 30.2 pg (28.0-33.3); Mean Corpuscular Volume 94.4 fL (83.0-100.0); Mean Platelet Volume 11.3 fL (9.4-12.4); Nucleated Red Blood Cells 1.3 /100 WBC (0); Platelet Count 198 K/mcL (140-400); Red Blood Count 3.74 M/mcL (4.19-5.50); Red Cell Distribution Width 14.8 % (11.5-14.5); White Blood Count 7.9 K/mcL (4.3-11.1)
[2021-04-02 02:33] LABS: BUN/Creatinine Ratio 26 (6-26); Blood Urea Nitrogen 30 mg/dL (8-23); Calcium 8.7 mg/dL (8.6-10.3); Carbon Dioxide 28 mEq/L (23-29); Chloride 105 mEq/L (98-107); Glucose 116 mg/dL (70-105); Osmolality,Calculated 297 (280-300); Potassium 4.4 mEq/L (3.5-5.1); Sodium 140 mEq/L (136-145); eGFR For African Americans > 60 (> 60); eGFR For Non-African Americans > 60 (> 60)
[2021-04-02 02:36] LABS: Lymphocytes # 0.6 K/mcL (0.6-4.6); Monocytes # 0.8 K/mcL (0.0-1.3); Neutrophils # 5.9 K/mcL (1.6-8.9); Platelet Estimate Normal (Normal); Polychromasia 1+ (Not Present)
[2021-04-02] MEDS: *HR* Heparin 5,000 UNIT/ML VIAL SQ SCH (06:11)
[2021-04-02] MEDS: Morphine Sulfate ER (12 HR) 30 MG TABLET.ER PO SCH (06:12)
[2021-04-02] MEDS: Cholecalciferol (D-3) 1,000 UNIT (25MCG) TABLET PO SCH (08:11)
[2021-04-02] MEDS: dexAMETHasone 4 MG TABLET PO SCH (08:11)
[2021-04-02] MEDS: Furosemide 20 MG TABLET PO SCH (08:12)
[2021-04-02] MEDS: Piperacillin/Tazobactam 3.375 GM in 0.9 % Sodium Chloride Mini Bag 100 ML IVPB SCH (08:12)
[2021-04-02] MEDS: Nystatin SUSP 5 ML UD.LIQ PO SCH (08:12)
[2021-04-02] MEDS: Nystatin POWDER 30 GM BOTTLE TP SCH (08:13)
[2021-04-02 16:07] VITALS: BP 96/68; PULSE 64; TEMP 97.9; O2SAT 95
== END 2021-04-02 17:24 | disposition home health service (06) | DRG 871 ==
LOC: EMEROOARM 20:57 → ICNU 20:57 → SUATTDRO 03-28 04:18 → 3NENU 03-29 22:24
PROVIDERS: ADMIT Internal Medicine; ATTEND Hospitalist

== ENCOUNTER 2021-06-14 13:56 | Inpatient (IN) ==
[2021-06-14] MEDS ORDERED: 0.9 % Sodium Chloride 1,000 ML IVC ONE (14:24)
[2021-06-14] MEDS ORDERED: Cefepime HCl 2,000 MG in 0.9 % Sodium Chloride 10 ML IVP ONE (14:24)
[2021-06-14] MEDS ORDERED: Vancomycin 1,750 MG/517.5 ML IV.SOLN IVPB ONE (14:24)
[2021-06-14] MEDS ORDERED: Ipratropium/Albuterol Neb 3 ML IH ONE (14:25)
[2021-06-14] MEDS ORDERED: methylPREDNISolone 125 MG/2 ML VIAL IVP ONE (14:25)
[2021-06-14] MEDS ORDERED: Isovue-370 500 ML BOTTLE IVP ONE (14:35)
[2021-06-14 14:36] LABS: VBG HCO3 28 mEq/L (21-27); VBG PCO2 43 mmHg (41-51); VBG PH 7.42 pH Units (7.32-7.42); VBG PO2 39 mmHg (25-50)
[2021-06-14 14:47] LABS: Hemoglobin 10.8 g/dL (12.9-16.9); Mean Platelet Volume 11.4 fL (9.4-12.4); Nucleated Red Blood Cells 0.3 /100 WBC (0)
[2021-06-14 14:48] LABS: Hematocrit 35.6 % (37.5-50.1); Mean Corpuscular HGB Conc 30.3 g/dL (31.6-35.5); Mean Corpuscular Hemoglobin 28.6 pg (28.0-33.3); Mean Corpuscular Volume 94.2 fL (83.0-100.0); Platelet Count 284 K/mcL (140-400); Red Blood Count 3.78 M/mcL (4.19-5.50); White Blood Count 25.8 K/mcL (4.3-11.1)
[2021-06-14 14:58] LABS: INR 1.6; Prothrombin Time 17.4 Seconds (9.4-12.1)
[2021-06-14 15:01] LABS: Activated Partial Thrombo Time 28.3 Seconds (26.0-36.0)
[2021-06-14 15:09] LABS: Alanine Aminotransferase 8 Units/L (7-52); Albumin 2.9 g/dL (3.5-5.7); Alkaline Phosphatase 73 Units/L (34-104); Aspartate Amino Transferase 15 Units/L (13-39); BUN/Creatinine Ratio 15 (6-26); Bilirubin,Direct 0.3 mg/dL (0.0-0.2); Bilirubin,Total 1.3 mg/dL (0.3-1.0); Blood Urea Nitrogen 17 mg/dL (8-23); Calcium 8.7 mg/dL (8.6-10.3); Carbon Dioxide 27 mEq/L (23-29); Chloride 99 mEq/L (98-107); Globulin 2.9 g/dL (2.4-3.5); Glucose 87 mg/dL (70-105); Magnesium 1.6 mg/dL (1.6-2.6); Osmolality,Calculated 287 (280-300); Phosphorous 3.1 mg/dL (2.7-4.5); Potassium 3.7 mEq/L (3.5-5.1); Sodium 138 mEq/L (136-145); Total Protein 5.8 g/dL (6.4-8.9); Troponin I 0.05 ng/mL (< 0.04); eGFR For African Americans > 60 (> 60); eGFR For Non-African Americans > 60 (> 60)
[2021-06-14 15:22] LABS: Lymphocytes # 3.6 K/mcL (0.6-4.6); Neutrophils # 21.2 K/mcL (1.6-8.9); Platelet Estimate Normal (Normal)
[2021-06-14 15:23] LABS: Anisocytosis 1+ (Not Present); Polychromasia 1+ (Not Present)
[2021-06-14 15:31] LABS: Bilirubin,Urine Negative (Negative); Blood,Urine Negative (Negative); Clarity,Urine Clear (Clear); Color,Urine Yellow (Yellow); Glucose,Urine (UA) Normal (Normal); Hyaline Casts,Urine Few per lpf (None Seen); Ketones,Urine Negative (Negative); Leukocyte Esterase,Urine Negative (Negative); Mucus,Urine Few per lpf (None-Few); Nitrite,Urine Negative (Negative); Protein,Urine 70 mg/dL (Neg-Trace); RBC,Urine 0-3 per hpf (0-3); Specific Gravity,Urine 1.023 (1.010-1.025); Squamous Epithelial Cell,Urine Few per hpf (None-Few)
[2021-06-14 16:25] LABS: Influenza A PCR Negative (Negative); Influenza B PCR Negative (Negative); Resp. Syncytial Virus PCR Negative (Negative)
[2021-06-14 16:27] LABS: SARS-CoV-2 by PCR (In House) Negative (Negative)
[2021-06-14] MEDS ORDERED: Naloxone 0.4 MG/ML INJ IVP PRN (16:48)
[2021-06-14] MEDS ORDERED: Ondansetron 4 MG/2 ML VIAL IVP PRN (16:48)
[2021-06-14] MEDS ORDERED: *HR* HYDROcodone/Acet 5/325 mg TABLET PO PRN (16:48)
[2021-06-14] MEDS ORDERED: Acetaminophen 325 MG TABLET PO PRN (16:48)
[2021-06-14] MEDS ORDERED: MetroNIDAZOLE 500 MG/100 ML 500 MG/100 ML BAG IVPB ONE (16:49)
[2021-06-14] MEDS ORDERED: Ipratropium/Albuterol Neb 3 ML IH PRN (17:26)
[2021-06-14] MEDS ORDERED: Morphine Sulfate Immed Rel 15 MG TABLET PO PRN (17:27)
[2021-06-14] MEDS: Ipratropium/Albuterol Neb 3 ML IH SCH (19:51)
[2021-06-14] MEDS: Morphine Sulfate ER (12 HR) 30 MG TABLET.ER PO SCH (20:05)
[2021-06-14] MEDS: *HR* Heparin 5,000 UNIT/ML VIAL SQ SCH (20:06)
[2021-06-14] MEDS: Piperacillin/Tazobactam 3.375 GM in 0.9 % Sodium Chloride Mini Bag 100 ML IVPB SCH (23:42)
[2021-06-15 02:59] LABS: Basophils # 0.1 K/mcL (0.0-0.2); Basophils % 0.5 %; Hematocrit 30.9 % (37.5-50.1); Immature Granulocytes % 6.3 % (0-4); Lymphocytes # 0.5 K/mcL (0.6-4.6); Lymphocytes % 2.8 %; Mean Corpuscular HGB Conc 29.4 g/dL (31.6-35.5); Mean Corpuscular Hemoglobin 28.1 pg (28.0-33.3); Mean Corpuscular Volume 95.4 fL (83.0-100.0); Mean Platelet Volume 11.4 fL (9.4-12.4); Monocytes # 0.1 K/mcL (0.0-1.3); Monocytes % 0.7 %; Neutrophils # 15.6 K/mcL (1.6-8.9); Nucleated Red Blood Cells 0.1 /100 WBC (0); Platelet Count 223 K/mcL (140-400); Red Blood Count 3.24 M/mcL (4.19-5.50); Red Cell Distribution Width 17.4 % (11.5-14.5); Segmented Neutrophils % 89.7 %; White Blood Count 17.4 K/mcL (4.3-11.1)
[2021-06-15 03:09] LABS: Hemoglobin 9.1 g/dL (12.9-16.9)
[2021-06-15] MEDS: Ipratropium/Albuterol Neb 3 ML IH SCH ×4 (03:34→20:55)
[2021-06-15] MEDS: Vancomycin 1,250 MG/262.5 ML IV.SOLN IVPB SCH ×2 (04:55→16:21)
[2021-06-15] MEDS: *HR* Heparin 5,000 UNIT/ML VIAL SQ SCH (04:56)
[2021-06-15] MEDS: MethylPREDNISolone 40 MG/ML VIAL IVP SCH ×2 (04:56→16:20)
[2021-06-15] MEDS: Morphine Sulfate ER (12 HR) 30 MG TABLET.ER PO SCH ×2 (04:56→16:20)
[2021-06-15 06:16] LABS: BUN/Creatinine Ratio 15 (6-26); Blood Urea Nitrogen 18 mg/dL (8-23); Calcium 8.1 mg/dL (8.6-10.3); Carbon Dioxide 31 mEq/L (23-29); Chloride 101 mEq/L (98-107); Glucose 198 mg/dL (70-105); Lactate Dehydrogenase 125 Units/L (140-271); Magnesium 1.7 mg/dL (1.6-2.6); Osmolality,Calculated 295 (280-300); Sodium 139 mEq/L (136-145); eGFR For African Americans > 60 (> 60); eGFR For Non-African Americans > 60 (> 60)
[2021-06-15] MEDS ORDERED: Potassium Chloride Elixir 20 MEQ/15 ML UDC PO ONE (07:42)
[2021-06-15] MEDS: Piperacillin/Tazobactam 3.375 GM in 0.9 % Sodium Chloride Mini Bag 100 ML IVPB SCH ×3 (09:01→23:19)
[2021-06-15] MEDS: Magnesium Oxide 400 MG TABLET PO SCH ×2 (09:01→21:36)
[2021-06-15] MEDS: Metoprolol XL (24 HR) Succ 25 MG TAB.ER.24H PO SCH (09:01)
[2021-06-15] MEDS ORDERED: Furosemide 20 MG/2 ML VIAL IVP ONE (12:32)
[2021-06-15] MEDS: Apixaban 5 MG TABLET PO SCH (21:36)
[2021-06-16] MEDS: Ipratropium/Albuterol Neb 3 ML IH SCH ×4 (04:39→22:11)
[2021-06-16 04:42] LABS: Hematocrit 29.6 % (37.5-50.1); Hemoglobin 8.7 g/dL (12.9-16.9); Mean Corpuscular HGB Conc 29.4 g/dL (31.6-35.5); Mean Corpuscular Hemoglobin 28.2 pg (28.0-33.3); Mean Corpuscular Volume 96.1 fL (83.0-100.0); Mean Platelet Volume 11.5 fL (9.4-12.4); Monocytes # 0.3 K/mcL (0.0-1.3); Nucleated Red Blood Cells 0.1 /100 WBC (0); Platelet Count 215 K/mcL (140-400); Red Blood Count 3.08 M/mcL (4.19-5.50); Red Cell Distribution Width 17.3 % (11.5-14.5)
[2021-06-16 05:06] LABS: Calcium 8.3 mg/dL (8.6-10.3); Potassium 4.4 mEq/L (3.5-5.1)
[2021-06-16] MEDS: Vancomycin 1,250 MG/262.5 ML IV.SOLN IVPB SCH ×2 (05:11→05:18)
[2021-06-16] MEDS: Morphine Sulfate ER (12 HR) 30 MG TABLET.ER PO SCH ×2 (05:13→17:47)
[2021-06-16] MEDS: MethylPREDNISolone 40 MG/ML VIAL IVP SCH ×2 (05:14→17:47)
[2021-06-16 05:15] LABS: Lymphocytes # 0.8 K/mcL (0.6-4.6); Neutrophils # 12.9 K/mcL (1.6-8.9); Platelet Estimate Normal (Normal)
[2021-06-16] MEDS: Piperacillin/Tazobactam 3.375 GM in 0.9 % Sodium Chloride Mini Bag 100 ML IVPB SCH ×2 (09:48→16:27)
[2021-06-16] MEDS: Metoprolol XL (24 HR) Succ 25 MG TAB.ER.24H PO SCH (10:49)
[2021-06-16] MEDS: Apixaban 5 MG TABLET PO SCH ×2 (10:49→21:53)
[2021-06-16] MEDS: Magnesium Oxide 400 MG TABLET PO SCH ×2 (10:49→21:53)
[2021-06-16] MEDS ORDERED: 0.9 % Sodium Chloride 1,000 ML IVC SCH (11:30)
[2021-06-16] MEDS ORDERED: Vancomycin 1,500 MG/265 ML IV.SOLN IVPB SCH (16:00)
[2021-06-16] MEDS ORDERED: Doxycycline 100 MG VIAL ONE (17:41)
[2021-06-16] MEDS: Doxycycline 100 MG in 0.9 % Sodium Chloride Mini Bag 100 ML IVPB SCH (17:45)
[2021-06-17] MEDS: Piperacillin/Tazobactam 3.375 GM in 0.9 % Sodium Chloride Mini Bag 100 ML IVPB SCH ×2 (00:35→10:24)
[2021-06-17] MEDS: Ipratropium/Albuterol Neb 3 ML IH SCH ×3 (04:01→15:33)
[2021-06-17] MEDS: Morphine Sulfate ER (12 HR) 30 MG TABLET.ER PO SCH (05:22)
[2021-06-17] MEDS: Doxycycline 100 MG in 0.9 % Sodium Chloride Mini Bag 100 ML IVPB SCH (05:23)
[2021-06-17] MEDS: MethylPREDNISolone 40 MG/ML VIAL IVP SCH (05:23)
[2021-06-17] MEDS: Magnesium Oxide 400 MG TABLET PO SCH (10:25)
[2021-06-17] MEDS: Apixaban 5 MG TABLET PO SCH (10:25)
[2021-06-17] MEDS: Metoprolol XL (24 HR) Succ 25 MG TAB.ER.24H PO SCH (10:25)
[2021-06-17 11:07] VITALS: O2SAT 98
[2021-06-17 11:35] LABS: BUN/Creatinine Ratio 22 (6-26); Blood Urea Nitrogen 26 mg/dL (8-23); Calcium 8.5 mg/dL (8.6-10.3); Carbon Dioxide 31 mEq/L (23-29); Chloride 105 mEq/L (98-107); Glucose 142 mg/dL (70-105); Osmolality,Calculated 301 (280-300); Potassium 4.6 mEq/L (3.5-5.1); Sodium 142 mEq/L (136-145); eGFR For African Americans > 60 (> 60); eGFR For Non-African Americans > 60 (> 60)
[2021-06-17 14:21] VITALS: BP 116/72; PULSE 89; TEMP 97.9
== END 2021-06-17 16:36 | disposition home or self-care (01) | DRG 871 ==
LOC: 3NENU 13:56 → EMEROOARM 13:56 → SUATTDRO 17:35 → 3NENU 17:39
PROVIDERS: ADMIT Family Medicine; ATTEND Internal Medicine

== ENCOUNTER 2021-11-24 10:01 | Observation (INO) ==
[2021-11-24] MEDS ORDERED: Iopamidol - 370 500 ML MLS IVP ONE (10:40)
[2021-11-24 10:56] LABS: Basophils % 0.2 %; Eosinophils % 0.5 %; Hematocrit 41.3 % (37.5-50.1); Hemoglobin 12.6 g/dL (12.9-16.9); Immature Granulocytes % 0.6 % (0-4); Lymphocytes # 0.6 K/mcL (0.6-4.6); Lymphocytes % 6.4 %; Mean Corpuscular HGB Conc 30.5 g/dL (31.6-35.5); Mean Corpuscular Hemoglobin 27.2 pg (28.0-33.3); Mean Platelet Volume 12.7 fL (9.4-12.4); Monocytes # 0.3 K/mcL (0.0-1.3); Monocytes % 3.2 %; Neutrophils # 7.9 K/mcL (1.6-8.9); Platelet Count 167 K/mcL (140-400); Red Blood Count 4.64 M/mcL (4.19-5.50); Red Cell Distribution Width 17.1 % (11.5-14.5); Segmented Neutrophils % 89.1 %; White Blood Count 8.8 K/mcL (4.3-11.1)
[2021-11-24 11:08] LABS: VBG HCO3 30 mEq/L (21-27); VBG PCO2 52 mmHg (41-51); VBG PH 7.36 pH Units (7.32-7.42); VBG PO2 51 mmHg (25-50)
[2021-11-24 11:11] LABS: INR 1.2; Prothrombin Time 13.3 Seconds (9.4-12.1)
[2021-11-24 11:27] LABS: BUN/Creatinine Ratio 24 (6-26); Blood Urea Nitrogen 22 mg/dL (8-23); Calcium 9.5 mg/dL (8.6-10.3); Carbon Dioxide 31 mEq/L (23-29); Chloride 101 mEq/L (98-107); Glucose 77 mg/dL (70-105); Magnesium 1.4 mg/dL (1.6-2.6); Osmolality,Calculated 296 (280-300); Potassium 3.4 mEq/L (3.5-5.1); Sodium 142 mEq/L (136-145)
[2021-11-24 11:28] LABS: Troponin I < 0.03 ng/mL (< 0.04)
[2021-11-24] MEDS ORDERED: Acetaminophen 325 MG TABLET PO PRN (22:09)
[2021-11-24] MEDS ORDERED: Ondansetron 4 MG/2 ML VIAL IVP PRN (22:09)
[2021-11-24] MEDS ORDERED: Naloxone 0.4 MG/ML INJ IVP PRN (22:09)
[2021-11-24] MEDS ORDERED: Nitroglycerin 0.4 MG TAB.SUBL SL PRN (22:15)
[2021-11-25] MEDS: Piperacillin/Tazobactam 3.375 GM in 0.9 % Sodium Chloride Mini Bag 100 ML IVPB SCH ×2 (01:30→06:12)
[2021-11-25] MEDS: *HR* OxyCODONE Immed Rel 5 MG TABLET PO PRN ×2 (01:30→07:57)
[2021-11-25 04:10] LABS: BUN/Creatinine Ratio 21 (6-26); Blood Urea Nitrogen 19 mg/dL (8-23); Calcium 8.7 mg/dL (8.6-10.3); Carbon Dioxide 30 mEq/L (23-29); Chloride 104 mEq/L (98-107); Glucose 89 mg/dL (70-105); Osmolality,Calculated 296 (280-300); Potassium 3.7 mEq/L (3.5-5.1); Sodium 142 mEq/L (136-145)
[2021-11-25 04:15] LABS: Basophils % 0.4 %; Eosinophils # 0.2 K/mcL (0.0-0.6); Eosinophils % 2.9 %; Hematocrit 34.5 % (37.5-50.1); Hemoglobin 10.7 g/dL (12.9-16.9); Immature Granulocytes % 0.4 % (0-4); Lymphocytes # 0.8 K/mcL (0.6-4.6); Mean Corpuscular Hemoglobin 27.5 pg (28.0-33.3); Mean Corpuscular Volume 88.7 fL (83.0-100.0); Monocytes # 0.3 K/mcL (0.0-1.3); Monocytes % 3.6 %; Neutrophils # 5.7 K/mcL (1.6-8.9); Platelet Count 159 K/mcL (140-400); Red Blood Count 3.89 M/mcL (4.19-5.50); Red Cell Distribution Width 17.2 % (11.5-14.5); Segmented Neutrophils % 80.7 %
[2021-11-25 04:18] LABS: Thyroid Stimulating Hormone 4.013 mcIU/mL (0.340-5.600)
[2021-11-25] MEDS: Acetylcysteine 10% 2 ML INHSOL IH SCH ×2 (06:04→10:37)
[2021-11-25] MEDS: Ipratropium/Albuterol Neb 3 ML IH SCH ×2 (06:05→10:37)
[2021-11-25] MEDS ORDERED: Regadenoson 0.4 MG/5 ML SYRINGE IVP ONE (06:46)
[2021-11-25] MEDS ORDERED: predniSONE 20 MG TABLET PO SCH (09:00)
[2021-11-25] MEDS ORDERED: Lactobacillus 1 EACH CAP.SPRINK PO SCH (09:00)
[2021-11-25] MEDS ORDERED: Magnesium Oxide 400 MG TABLET PO SCH (09:00)
[2021-11-25] MEDS ORDERED: Apixaban 5 MG TABLET PO SCH (09:00)
[2021-11-25] MEDS ORDERED: Metoprolol XL (24 HR) Succ 25 MG TAB.ER.24H PO SCH (09:00)
[2021-11-25] MEDS ORDERED: Gabapentin 300 MG CAPSULE PO SCH (09:00)
[2021-11-25 12:17] VITALS: BP 100/65; PULSE 99; TEMP 97.7; O2SAT 95
== END 2021-11-25 13:41 | disposition home or self-care (01) ==
LOC: EMEROOARM 10:01 → 2ANU 10:01 → SUATTDRO 21:52 → 2ANU 22:33
PROVIDERS: ADMIT Pharmacist; ATTEND Internal Medicine